=== PATIENT | female | born 1975 | race Caucasian/White ===

== ENCOUNTER 2017-12-20 11:00 | Outpatient (RCR) | payer MEDICAID, SELFPAY ==
[2017-12-13 11:51] VITALS: BP 146/88; PULSE 86; RESP 18; TEMP 36.9; BMI 54.0
--- NOTE | 2017-12-13 13:05 | PCM.WC.HP ---
(1) Wound of right lower extremity Status: Resolved Current Visit: Yes Code(s): S81.801A - Unspecified open wound, right lower leg, initial encounter (2) Cellulitis of right lower extremity Status: Acute Current Visit: Yes Code(s): L03.115 - Cellulitis of right lower limb (3) Peripheral arterial disease Status: Acute Current Visit: Yes Code(s): I73.9 - Peripheral vascular disease, unspecified History of Present Illness Date of Service: 12/13/17 Chief Complaint: Traumatic wound, right lower extremity. History of Wound: Ms. Carter is a 42yo who presented to the wound center to four-week history of nonhealing right lower extremity wound. Initially noted after a fall. She had tried to manage it at home with antibiotic ointment and some other OTC wound care product without any significant improvement. She was also seen about a week ago at the [place] emergency room and started on levofloxacin for presumed cellulitis. She still however reports significant lower extremity pain. She feels well otherwise and denies chills,, nausea, vomiting or any change in her bowel habit. 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 She is also undergone several surgeries for anal fistula. Allergies/Adverse Reactions: Allergies amoxicillin Allergy (Verified 12/13/17 12:06) Other cephalexin Allergy (Verified 12/13/17 12:06) Other naproxen Allergy (Verified 12/13/17 12:06) Other sulfamethoxazole [From Bactrim] Allergy (Verified 12/13/17 12:06) Other trimethoprim [From Bactrim] Allergy (Verified 12/13/17 12:06) Other Home Medications: Ambulatory Orders Medication Instructions Recorded Furosemide 20 mg PO DAILY 02/16/16 Calcium Carbonate/Vitamin D3 1 each PO DAILY 12/13/17 [Calcium 600-Vit D3 500 Softgel] Ferrous Sulfate 325 mg PO DAILY 12/13/17 Levofloxacin [Levaquin] 750 mg PO DAILY 12/13/17 Loperamide [Imodium] 2 mg PO Q6H PRN PRN 12/13/17 Magnesium 250 mg PO DAILY 12/13/17 Melatonin 3 mg PO DAILY 12/13/17 Sertraline HCl [Zoloft] 25 mg PO DAILY 12/13/17 Vit C/Rut/Hesp Cmp/Bioflav,Cit 1 each PO DAILY 12/13/17 [Special C 500 mg Tablet] Warfarin [Coumadin ([facility])] 5 mg PO DAILY 12/13/17 Zinc Sulfate (50mg elemental) 220 mg PO DAILY 12/13/17 [Zinc Sulfate] - Family History Maternal No pertinent history Paternal No pertinent history Smoking Status: Never smoker Review of Systems Constitutional: Denies: Anorexia, Chills, Fever Eyes: Denies: Blurred vision, Pain, Redness HEENT: Denies: Difficulty Swallowing, Head Aches Cardiovascular: Denies: Chest Pain, Chest Pressure Respiratory: Denies: Hemoptysis Gastrointestinal: Denies: Abdominal Pain, Hematemesis, Vomiting Skin: Denies: Jaundice - Physical Exam Vital Signs Temp Pulse Resp BP 98.4 F 86 18 146/88 H 12/13/17 11:51 12/13/17 11:51 12/13/17 11:51 12/13/17 11:51 General: Alert, Oriented x3, Cooperative, No apparent distress HEENT: Atraumatic Oral: Moist Mucosa Neck: Supple Lungs: Normal air movement Cardiovascular: Regular rate Abdomen: Non Tender, Obese Extremities: No cyanosis, Edema Skin: Ulcer/ Wound Wound Measurements and Assessment WC - Nurse 1 - General Ulcer Measurement Start: 12/13/17 11:51 Freq: Status: Active Protocol: Activity Type Activity Date Activity User E-Sign Co-Sign Detail Recorded Client Recorded Date Recorded By Document 12/13/17 11:51 MW [id number] 12/13/17 11:59 MW 12/13/17 11:51 Wound Center Nurse 1 [Ulcer Assessment] #3 Right Lateral LE -Combined with other wound No -Current Size (cm) - Length 1.0 -Current Size (cm) - Width 0.7 -Current Size (cm) - Depth 0.1 -Total Square Cm 0.70 -Date of Last Picture (Recall this 12/13/17 field) -Photo Taken Yes -Epithelialization None Present -Tunneling No -Undermining/Tunneling No -Circular Undermining No -Exudate Amt Small (1-33%) -Exudate Type Serosanguineous -Wound Margin Distinct, Outline Attached -Granulation Amt Small (1-33%) -Granulation Quality [place] -Slough/Fibrin Yes -Necrosis Amt Medium (34-66%) -Necrotic Tissue Type Adherent Slough -Structure Exposed N/A -Texture (Meg-wound Skin Appearance) Assessed Localized Edema -Moisture (Meg-wound Skin Appearance Assessed ) Weeping -Color (Meg-wound Skin Appearance) Assessed Hemosiderin Staining Rubor -Temperature (Meg-wound Skin No Abnormality Appearance) (Pt Warm) -Tenderness on Palpation (Meg-wound Yes Skin Appearance) -Ulcer Cleansing Rinsed/ Irrigated with Saline -Foul Odor after Cleansing No -Anesthetic Used 4% Lidocaine Solution [Edema Assessment] -Lower Limb Edema Present Yes -Right Calf (cm) 58.0 -Right Ankle (cm) 33.5 -Left Calf (cm) 47.5 -Left Ankle (cm) 29.0 WC - Nurse 2 - General Ulcer CM Notes Start: 12/13/17 11:51 Freq: Status: Active Protocol: Activity Type Activity Date Activity User E-Sign Co-Sign Detail Recorded Client Recorded Date Recorded By Document 12/13/17 12:02 MW [id number] 12/13/17 12:16 MW 12/13/17 12:02 Wound Center Nurse 2 [Procedure/Treatment] #3 Right Lateral LE -Time 12:02 -Correct Patient Yes -Correct Side, Site, Position Yes -Correct Procedure Yes -Procedure Performed Yes -Type of Procedure Debridement -Clinical Debridement Subcutaneous -Post Debridement Size (cm) - Length 3.5 -Post Debridement Size (cm) - Width 2.5 -Post Debridement Size (cm) - Depth 0.2 -Total Square Cm 8.75 -Wound/Ulcer Outcome Not Healed -Ulcer Cleansing Rinsed/ Irrigated with Saline -Foul Odor after Cleansing No -Bioengineered Tissue No -Bleeding Controlled with Pressure -Treatment Response Procedure Tolerated Well [See Physician Procedure note for Specifics] Pain Scale: 0-10 Numeric [Pain] -Is Patient Pain Free? Yes Musculoskeletal: No Muscle Wasting Neurological: Cranial nerves II-XII grossly intact Psych/Mental Status: Normal Affect Debridement Note Post-Debridement Measurements/Treatment WC - Nurse 2 - General Ulcer CM Notes Start: 12/13/17 11:51 Freq: Status: Active Protocol: Activity Type Activity Date Activity User E-Sign Co-Sign Detail Recorded Client Recorded Date Recorded By Document 12/13/17 12:02 MW [id number] 12/13/17 12:16 MW 12/13/17 12:02 Wound Center Nurse 2 #3 Right Lateral LE -Time 12:02 -Correct Patient Yes -Correct Side, Site, Position Yes -Correct Procedure Yes -Procedure Performed Yes -Type of Procedure Debridement -Clinical Debridement Subcutaneous -Post Debridement Size (cm) - Length 3.5 -Post Debridement Size (cm) - Width 2.5 -Post Debridement Size (cm) - Depth 0.2 -Total Square Cm 8.75 -Wound/Ulcer Outcome Not Healed -Ulcer Cleansing Rinsed/ Irrigated with Saline -Foul Odor after Cleansing No -Bioengineered Tissue No -Bleeding Controlled with Pressure -Treatment Response Procedure Tolerated Well Pain Scale: 0-10 Numeric Is Patient Pain Free? Yes Wound debrided: Right lower extremity ( lateral ) Wound Grade/Stage: Stage II Type of Debridement: Excisional debridement Anesthesia Used: 4% Lidocaine Solution Depth: Down to and including healthy tissue, in the subcutaneous layer Percentage of wound debrided: 100 Instrument Used: 5mm curette Tissue Removed: Slough and devitalized tissue Severity: Fat Layer Exposed Amount of bleeding with debridement: Mild Bleeding Controlled with: Pressure Patient tolerated procedure well Assessment/Plan Active Problems Cellulitis of right lower extremity (Acute) Peripheral arterial disease (Acute) Assessment: Right lower extremity wound status post trauma. Nonhealing. Right lower extremity cellulitis. Bilateral chronic lower extremity edema. Right worse than left. Plan: Debridement done as documented above. Procedure was well-tolerated. My concern is for right lower extremity cellulitis however, she has been on levofloxacin for about a week. There is still significant tenderness and erythema. Cultures taken. Will switch antibiotics based on culture. Apply Inez to the wound with Adaptic over top. Change daily. SurePress bilaterally for edema management. Advised to elevate lower extremity when seated and in bed. Increased protein intake/supplements also recommended. Follow-up here in 1 week. She was advised to call with any questions or concerns. This note was generated with [employer] dictation software. It may contain incorrect words, spelling, and punctuation that were not noted in checking the note before signing.
--- NOTE | 2017-12-13 13:23 | HP.PCM_ITS ---
(1) Wound of right lower extremity Status: Resolved Current Visit: Yes Code(s): S81.801A - Unspecified open wound, right lower leg, initial encounter (2) Cellulitis of right lower extremity Status: Acute Current Visit: Yes Code(s): L03.115 - Cellulitis of right lower limb (3) Peripheral arterial disease Status: Acute Current Visit: Yes Code(s): I73.9 - Peripheral vascular disease, unspecified History of Present Illness Date of Service: 12/13/17 Chief Complaint: Traumatic wound, right lower extremity. History of Wound: Ms. Carter is a 42yo who presented to the wound center to four -week history of nonhealing right lower extremity wound. Initially noted after a fall. She had tried to manage it at home with antibiotic ointment and some other OTC wound care product without any significant improvement. She was also seen about a week ago at the [place] emergency room and started on levofloxacin for presumed cellulitis. She still however reports significant lower extremity pain. She feels well otherwise and denies chills,, nausea, vomiting or any change in her bowel habit. 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 She is also undergone several surgeries for anal fistula. Allergies/Adverse Reactions: Allergies amoxicillin Allergy (Verified 12/13/17 12:06) Other cephalexin Allergy (Verified 12/13/17 12:06) Other naproxen Allergy (Verified 12/13/17 12:06) Other sulfamethoxazole [From Bactrim] Allergy (Verified 12/13/17 12:06) Other trimethoprim [From Bactrim] Allergy (Verified 12/13/17 12:06) Other Home Medications: Ambulatory Orders Medication Instructions Recorded Furosemide 20 mg PO DAILY 02/16/16 Calcium Carbonate/Vitamin D3 1 each PO DAILY 12/13/17 [Calcium 600-Vit D3 500 Softgel] Ferrous Sulfate 325 mg PO DAILY 12/13/17 Levofloxacin [Levaquin] 750 mg PO DAILY 12/13/17 Loperamide [Imodium] 2 mg PO Q6H PRN PRN 12/13/17 Magnesium 250 mg PO DAILY 12/13/17 Melatonin 3 mg PO DAILY 12/13/17 Sertraline HCl [Zoloft] 25 mg PO DAILY 12/13/17 Vit C/Rut/Hesp Cmp/Bioflav,Cit 1 each PO DAILY 12/13/17 [Special C 500 mg Tablet] Warfarin [Coumadin ([facility])] 5 mg PO DAILY 12/13/17 Zinc Sulfate (50mg elemental) 220 mg PO DAILY 12/13/17 [Zinc Sulfate] - Family History Maternal No pertinent history Paternal No pertinent history Smoking Status: Never smoker Review of Systems Constitutional: Denies: Anorexia, Chills, Fever Eyes: Denies: Blurred vision, Pain, Redness HEENT: Denies: Difficulty Swallowing, Head Aches Cardiovascular: Denies: Chest Pain, Chest Pressure Respiratory: Denies: Hemoptysis Gastrointestinal: Denies: Abdominal Pain, Hematemesis, Vomiting Skin: Denies: Jaundice - Physical Exam Vital Signs Temp Pulse Resp BP 98.4 F 86 18 146/88 H 12/13/17 11:51 12/13/17 11:51 12/13/17 11:51 12/13/17 11:51 General: Alert, Oriented x3, Cooperative, No apparent distress HEENT: Atraumatic Oral: Moist Mucosa Neck: Supple Lungs: Normal air movement Cardiovascular: Regular rate Abdomen: Non Tender, Obese Extremities: No cyanosis, Edema Skin: Ulcer/ Wound Wound Measurements and Assessment WC - Nurse 1 - General Ulcer Measurement Start: 12/13/17 11:51 Freq: Status: Active Protocol: Activity Type Activity Date Activity User E-Sign Co-Sign Detail Recorded Client Recorded Date Recorded By Document 12/13/17 11:51 MW [id number] 12/13/17 11:59 MW 12/13/17 11:51 Wound Center Nurse 1 [Ulcer Assessment] #3 Right Lateral LE -Combined with other wound No -Current Size (cm) - Length 1.0 -Current Size (cm) - Width 0.7 -Current Size (cm) - Depth 0.1 -Total Square Cm 0.70 -Date of Last Picture (Recall this 12/13/17 field) -Photo Taken Yes -Epithelialization None Present -Tunneling No -Undermining/Tunneling No -Circular Undermining No -Exudate Amt Small (1-33%) -Exudate Type Serosanguineous -Wound Margin Distinct, Outline Attached -Granulation Amt Small (1-33%) -Granulation Quality [place] -Slough/Fibrin Yes -Necrosis Amt Medium (34-66%) -Necrotic Tissue Type Adherent Slough -Structure Exposed N/A -Texture (Meg-wound Skin Appearance) Assessed Localized Edema -Moisture (Meg-wound Skin Appearance Assessed ) Weeping -Color (Meg-wound Skin Appearance) Assessed Hemosiderin Staining Rubor -Temperature (Meg-wound Skin No Abnormality Appearance) (Pt Warm) -Tenderness on Palpation (Meg-wound Yes Skin Appearance) -Ulcer Cleansing Rinsed/ Irrigated with Saline -Foul Odor after Cleansing No -Anesthetic Used 4% Lidocaine Solution [Edema Assessment] -Lower Limb Edema Present Yes -Right Calf (cm) 58.0 -Right Ankle (cm) 33.5 -Left Calf (cm) 47.5 -Left Ankle (cm) 29.0 WC - Nurse 2 - General Ulcer CM Notes Start: 12/13/17 11:51 Freq: Status: Active Protocol: Activity Type Activity Date Activity User E-Sign Co-Sign Detail Recorded Client Recorded Date Recorded By Document 12/13/17 12:02 MW [id number] 12/13/17 12:16 MW 12/13/17 12:02 Wound Center Nurse 2 [Procedure/Treatment] #3 Right Lateral LE -Time 12:02 -Correct Patient Yes -Correct Side, Site, Position Yes -Correct Procedure Yes -Procedure Performed Yes -Type of Procedure Debridement -Clinical Debridement Subcutaneous -Post Debridement Size (cm) - Length 3.5 -Post Debridement Size (cm) - Width 2.5 -Post Debridement Size (cm) - Depth 0.2 -Total Square Cm 8.75 -Wound/Ulcer Outcome Not Healed -Ulcer Cleansing Rinsed/ Irrigated with Saline -Foul Odor after Cleansing No -Bioengineered Tissue No -Bleeding Controlled with Pressure -Treatment Response Procedure Tolerated Well [See Physician Procedure note for Specifics] Pain Scale: 0-10 Numeric [Pain] -Is Patient Pain Free? Yes Musculoskeletal: No Muscle Wasting Neurological: Cranial nerves II-XII grossly intact Psych/Mental Status: Normal Affect Debridement Note Post-Debridement Measurements/Treatment WC - Nurse 2 - General Ulcer CM Notes Start: 12/13/17 11:51 Freq: Status: Active Protocol: Activity Type Activity Date Activity User E-Sign Co-Sign Detail Recorded Client Recorded Date Recorded By Document 12/13/17 12:02 MW [id number] 12/13/17 12:16 MW 12/13/17 12:02 Wound Center Nurse 2 #3 Right Lateral LE -Time 12:02 -Correct Patient Yes -Correct Side, Site, Position Yes -Correct Procedure Yes -Procedure Performed Yes -Type of Procedure Debridement -Clinical Debridement Subcutaneous -Post Debridement Size (cm) - Length 3.5 -Post Debridement Size (cm) - Width 2.5 -Post Debridement Size (cm) - Depth 0.2 -Total Square Cm 8.75 -Wound/Ulcer Outcome Not Healed -Ulcer Cleansing Rinsed/ Irrigated with Saline -Foul Odor after Cleansing No -Bioengineered Tissue No -Bleeding Controlled with Pressure -Treatment Response Procedure Tolerated Well Pain Scale: 0-10 Numeric Is Patient Pain Free? Yes Wound debrided: Right lower extremity ( lateral ) Wound Grade/Stage: Stage II Type of Debridement: Excisional debridement Anesthesia Used: 4% Lidocaine Solution Depth: Down to and including healthy tissue, in the subcutaneous layer Percentage of wound debrided: 100 Instrument Used: 5mm curette Tissue Removed: Slough and devitalized tissue Severity: Fat Layer Exposed Amount of bleeding with debridement: Mild Bleeding Controlled with: Pressure Patient tolerated procedure well Assessment/Plan Active Problems Cellulitis of right lower extremity (Acute) Peripheral arterial disease (Acute) Assessment: Right lower extremity wound status post trauma. Nonhealing. Right lower extremity cellulitis. Bilateral chronic lower extremity edema. Right worse than left. Plan: Debridement done as documented above. Procedure was well-tolerated. My concern is for right lower extremity cellulitis however, she has been on levofloxacin for about a week. There is still significant tenderness and erythema. Cultures taken. Will switch antibiotics based on culture. Apply Inez to the wound with Adaptic over top. Change daily. SurePress bilaterally for edema management. Advised to elevate lower extremity when seated and in bed. Increased protein intake/supplements also recommended. Follow-up here in 1 week. She was advised to call with any questions or concerns. This note was generated with [employer] dictation software. It may contain incorrect words, spelling, and punctuation that were not noted in checking the note before signing.
[2017-12-20 11:08] VITALS: BP 136/77; PULSE 88; RESP 20; TEMP 36.6; BMI 54.0
--- NOTE | 2017-12-20 11:32 | PCM.WC.PN ---
(1) Wound of right lower extremity Status: Resolved Current Visit: Yes Code(s): S81.801A - Unspecified open wound, right lower leg, initial encounter (2) Cellulitis of right lower extremity Status: Acute Current Visit: Yes Code(s): L03.115 - Cellulitis of right lower limb (3) Peripheral arterial disease Status: Acute Current Visit: Yes Code(s): I73.9 - Peripheral vascular disease, unspecified Type of Wound Date of Service: 12/20/17 Chief Complaint: Traumatic wound, right lower extremity. History of Wound: Ms. Carter is a 42yo who presented to the wound center to four-week history of nonhealing right lower extremity wound. Initially noted after a fall. She had tried to manage it at home with antibiotic ointment and some other OTC wound care product without any significant improvement. She was also seen about a week ago at the [place] emergency room and started on levofloxacin for presumed cellulitis. She still however reports significant lower extremity pain. She feels well otherwise and denies chills,, nausea, vomiting or any change in her bowel habit. Progress of Wound: Stable wound however, still significant pain. - Physical Exam Vital Signs Temp Pulse Resp BP 98 F 88 20 H 136/77 H 12/20/17 11:08 12/20/17 11:08 12/20/17 11:08 12/20/17 11:08 General: Alert, Oriented x3, Cooperative, No apparent distress HEENT: Atraumatic Oral: Moist Mucosa Neck: Supple Lungs: Normal air movement Abdomen: Non Tender, Obese Extremities: Edema Skin: Ulcer/ Wound Wound Measurements and Assessment WC - Nurse 1 - General Ulcer Measurement Start: 12/13/17 11:51 Freq: Status: Active Protocol: Activity Type Activity Date Activity User E-Sign Co-Sign Detail Recorded Client Recorded Date Recorded By Document 12/20/17 11:08 DL [id number] 12/20/17 11:15 DL 12/20/17 11:08 Wound Center Nurse 1 [Ulcer Assessment] #3 Right Lateral LE -Current Size (cm) - Length 1 -Current Size (cm) - Width 0.6 -Current Size (cm) - Depth 0.1 -Total Square Cm 0.6 -Photo Taken No -Exudate Amt None Present (0 %) -Wound Margin Distinct, Outline Attached -Granulation Amt Small (1-33%) -Granulation Quality Red -Necrosis Amt Small (1-33%) -Necrotic Tissue Type Adherent Slough -Structure Exposed N/A -Texture (Meg-wound Skin Appearance) Localized Edema Scarring -Moisture (Meg-wound Skin Appearance No Abnormality ) -Color (Meg-wound Skin Appearance) Hemosiderin Staining Rubor -Temperature (Meg-wound Skin No Abnormality Appearance) (Pt Warm) -Ulcer Cleansing Rinsed/ Irrigated with Saline -Foul Odor after Cleansing No -Anesthetic Used 4% Lidocaine Solution [Edema Assessment] -Right Calf (cm) 56 -Right Ankle (cm) 33.5 WC - Nurse 2 - General Ulcer CM Notes Start: 12/13/17 11:51 Freq: Status: Active Protocol: Activity Type Activity Date Activity User E-Sign Co-Sign Detail Recorded Client Recorded Date Recorded By Document 12/20/17 11:24 MW [id number] 12/20/17 11:28 MW 12/20/17 11:24 Wound Center Nurse 2 [Procedure/Treatment] #3 Right Lateral LE -Time 11:25 -Correct Patient Yes -Correct Side, Site, Position Yes -Correct Procedure Yes -Procedure Performed Yes -Type of Procedure Debridement -Clinical Debridement Subcutaneous -Post Debridement Size (cm) - Length 1.0 -Post Debridement Size (cm) - Width 1.0 -Post Debridement Size (cm) - Depth 0.1 -Total Square Cm 1.00 -Wound/Ulcer Outcome Not Healed -Ulcer Cleansing Not Cleansed -Foul Odor after Cleansing No -Bioengineered Tissue No -Bleeding Controlled with Pressure -Treatment Response Procedure Tolerated Well [See Physician Procedure note for Specifics] Pain Scale: 0-10 Numeric [Pain] -Is Patient Pain Free? Yes Musculoskeletal: No Muscle Wasting Neurological: Cranial nerves II-XII grossly intact Psych/Mental Status: Normal Affect Debridement Note Post-Debridement Measurements/Treatment WC - Nurse 2 - General Ulcer CM Notes Start: 12/13/17 11:51 Freq: Status: Active Protocol: Activity Type Activity Date Activity User E-Sign Co-Sign Detail Recorded Client Recorded Date Recorded By Document 12/13/17 12:02 MW [id number] 12/13/17 12:16 MW Document 12/20/17 11:24 MW [id number] 12/20/17 11:28 MW 12/13/17 12/20/17 12:02 11:24 Wound Center Nurse 2 #3 Right Lateral LE -Time 12: 11:25 -Correct Patient Yes Yes -Correct Side, Site, Position Yes Yes -Correct Procedure Yes Yes -Procedure Performed Yes Yes -Type of Procedure Debridement Debridement -Clinical Debridement Subcutaneous Subcutaneous -Post Debridement Size (cm) - Length 3.5 1.0 -Post Debridement Size (cm) - Width 2.5 1.0 -Post Debridement Size (cm) - Depth 0.2 0.1 -Total Square Cm 8.75 1.00 -Wound/Ulcer Outcome Not Healed Not Healed -Ulcer Cleansing Rinsed/ Not Cleansed Irrigated with Saline -Foul Odor after Cleansing No No -Bioengineered Tissue No No -Bleeding Controlled with Pressure Pressure -Treatment Response Procedure Procedure Tolerated Well Tolerated Well Pain Scale: 0-10 Numeric Is Patient Pain Free? Yes Yes Wound debrided: Right lower extremity Wound Grade/Stage: Stage II Type of Debridement: Excisional debridement Anesthesia Used: 4% Lidocaine Solution, 5% Lidocaine Gel Depth: Down to and including healthy tissue, in the subcutaneous layer Percentage of wound debrided: 100 Instrument Used: 3mm curette Tissue Removed: Slough and devitalized tissue Severity: Fat Layer Exposed Amount of bleeding with debridement: Mild Bleeding Controlled with: Pressure Patient tolerated procedure well Assessment/Plan Active Problems Cellulitis of right lower extremity (Acute) Peripheral arterial disease (Acute) Assessment: Right lower extremity wound status post trauma. Nonhealing. Right lower extremity cellulitis. Bilateral chronic lower extremity edema. Right worse than left. Plan: Debridement done as documented above. Procedure was well-tolerated. She has completed her prior course of antibiotics and repeat. Culture though with minmal growth showed intermediate susceptibility of prior antibiotic ( levofloxacin ). Continue Inez with adaptic overtop, Change daily. SurePress bilaterally for edema management. Advised to elevate lower extremity when seated and in bed. Increased protein intake/supplements also recommended. Will start on Clindamycin due to continued pain and and concerns for cellulitis. Advised to take probiotics also. Follow-up here in 1 week. She was advised to call with any questions or concerns. This note was generated with [employer] software. It may contain incorrect words, spelling, and punctuation that were not noted in checking the note before signing.
--- NOTE | 2017-12-20 11:39 | PN.PCM_ITS ---
(1) Wound of right lower extremity Status: Resolved Current Visit: Yes Code(s): S81.801A - Unspecified open wound, right lower leg, initial encounter (2) Cellulitis of right lower extremity Status: Acute Current Visit: Yes Code(s): L03.115 - Cellulitis of right lower limb (3) Peripheral arterial disease Status: Acute Current Visit: Yes Code(s): I73.9 - Peripheral vascular disease, unspecified Type of Wound Date of Service: 12/20/17 Chief Complaint: Traumatic wound, right lower extremity. History of Wound: Ms. Carter is a 42yo who presented to the wound center to four -week history of nonhealing right lower extremity wound. Initially noted after a fall. She had tried to manage it at home with antibiotic ointment and some other OTC wound care product without any significant improvement. She was also seen about a week ago at the [place] emergency room and started on levofloxacin for presumed cellulitis. She still however reports significant lower extremity pain. She feels well otherwise and denies chills,, nausea, vomiting or any change in her bowel habit. Progress of Wound: Stable wound however, still significant pain. - Physical Exam Vital Signs Temp Pulse Resp BP 98 F 88 20 H 136/77 H 12/20/17 11:08 12/20/17 11:08 12/20/17 11:08 12/20/17 11:08 General: Alert, Oriented x3, Cooperative, No apparent distress HEENT: Atraumatic Oral: Moist Mucosa Neck: Supple Lungs: Normal air movement Abdomen: Non Tender, Obese Extremities: Edema Skin: Ulcer/ Wound Wound Measurements and Assessment WC - Nurse 1 - General Ulcer Measurement Start: 12/13/17 11:51 Freq: Status: Active Protocol: Activity Type Activity Date Activity User E-Sign Co-Sign Detail Recorded Client Recorded Date Recorded By Document 12/20/17 11:08 DL [id number] 12/20/17 11:15 DL 12/20/17 11:08 Wound Center Nurse 1 [Ulcer Assessment] #3 Right Lateral LE -Current Size (cm) - Length 1 -Current Size (cm) - Width 0.6 -Current Size (cm) - Depth 0.1 -Total Square Cm 0.6 -Photo Taken No -Exudate Amt None Present (0 %) -Wound Margin Distinct, Outline Attached -Granulation Amt Small (1-33%) -Granulation Quality Red -Necrosis Amt Small (1-33%) -Necrotic Tissue Type Adherent Slough -Structure Exposed N/A -Texture (Meg-wound Skin Appearance) Localized Edema Scarring -Moisture (Meg-wound Skin Appearance No Abnormality ) -Color (Meg-wound Skin Appearance) Hemosiderin Staining Rubor -Temperature (Meg-wound Skin No Abnormality Appearance) (Pt Warm) -Ulcer Cleansing Rinsed/ Irrigated with Saline -Foul Odor after Cleansing No -Anesthetic Used 4% Lidocaine Solution [Edema Assessment] -Right Calf (cm) 56 -Right Ankle (cm) 33.5 WC - Nurse 2 - General Ulcer CM Notes Start: 12/13/17 11:51 Freq: Status: Active Protocol: Activity Type Activity Date Activity User E-Sign Co-Sign Detail Recorded Client Recorded Date Recorded By Document 12/20/17 11:24 MW [id number] 12/20/17 11:28 MW 12/20/17 11:24 Wound Center Nurse 2 [Procedure/Treatment] #3 Right Lateral LE -Time 11:25 -Correct Patient Yes -Correct Side, Site, Position Yes -Correct Procedure Yes -Procedure Performed Yes -Type of Procedure Debridement -Clinical Debridement Subcutaneous -Post Debridement Size (cm) - Length 1.0 -Post Debridement Size (cm) - Width 1.0 -Post Debridement Size (cm) - Depth 0.1 -Total Square Cm 1.00 -Wound/Ulcer Outcome Not Healed -Ulcer Cleansing Not Cleansed -Foul Odor after Cleansing No -Bioengineered Tissue No -Bleeding Controlled with Pressure -Treatment Response Procedure Tolerated Well [See Physician Procedure note for Specifics] Pain Scale: 0-10 Numeric [Pain] -Is Patient Pain Free? Yes Musculoskeletal: No Muscle Wasting Neurological: Cranial nerves II-XII grossly intact Psych/Mental Status: Normal Affect Debridement Note Post-Debridement Measurements/Treatment WC - Nurse 2 - General Ulcer CM Notes Start: 12/13/17 11:51 Freq: Status: Active Protocol: Activity Type Activity Date Activity User E-Sign Co-Sign Detail Recorded Client Recorded Date Recorded By Document 12/13/17 12:02 MW [id number] 12/13/17 12:16 MW Document 12/20/17 11:24 MW [id number] 12/20/17 11:28 MW 12/13/17 12/20/17 12:02 11:24 Wound Center Nurse 2 #3 Right Lateral LE -Time 12: 11:25 -Correct Patient Yes Yes -Correct Side, Site, Position Yes Yes -Correct Procedure Yes Yes -Procedure Performed Yes Yes -Type of Procedure Debridement Debridement -Clinical Debridement Subcutaneous Subcutaneous -Post Debridement Size (cm) - Length 3.5 1.0 -Post Debridement Size (cm) - Width 2.5 1.0 -Post Debridement Size (cm) - Depth 0.2 0.1 -Total Square Cm 8.75 1.00 -Wound/Ulcer Outcome Not Healed Not Healed -Ulcer Cleansing Rinsed/ Not Cleansed Irrigated with Saline -Foul Odor after Cleansing No No -Bioengineered Tissue No No -Bleeding Controlled with Pressure Pressure -Treatment Response Procedure Procedure Tolerated Well Tolerated Well Pain Scale: 0-10 Numeric Is Patient Pain Free? Yes Yes Wound debrided: Right lower extremity Wound Grade/Stage: Stage II Type of Debridement: Excisional debridement Anesthesia Used: 4% Lidocaine Solution, 5% Lidocaine Gel Depth: Down to and including healthy tissue, in the subcutaneous layer Percentage of wound debrided: 100 Instrument Used: 3mm curette Tissue Removed: Slough and devitalized tissue Severity: Fat Layer Exposed Amount of bleeding with debridement: Mild Bleeding Controlled with: Pressure Patient tolerated procedure well Assessment/Plan Active Problems Cellulitis of right lower extremity (Acute) Peripheral arterial disease (Acute) Assessment: Right lower extremity wound status post trauma. Nonhealing. Right lower extremity cellulitis. Bilateral chronic lower extremity edema. Right worse than left. Plan: Debridement done as documented above. Procedure was well-tolerated. She has completed her prior course of antibiotics and repeat. Culture though with minmal growth showed intermediate susceptibility of prior antibiotic ( levofloxacin ). Continue Inez with adaptic overtop, Change daily. SurePress bilaterally for edema management. Advised to elevate lower extremity when seated and in bed. Increased protein intake/supplements also recommended. Will start on Clindamycin due to continued pain and and concerns for cellulitis. Advised to take probiotics also. Follow-up here in 1 week. She was advised to call with any questions or concerns. This note was generated with Loginzaation software. It may contain incorrect words, spelling, and punctuation that were not noted in checking the note before signing.
== END 2017-12-21 23:59 ==
LOC: WC 11:00
PROVIDERS: Visit Provider Internal Medicine
DX: I73.9 Peripheral vascular disease, unspecified (principal); L03.115 Cellulitis of right lower limb; R60.0 Localized edema; S81.831A Puncture wound without foreign body, right lower leg, initial encounter; W19.XXXA Unspecified fall, initial encounter; E66.01 Morbid (severe) obesity due to excess calories; Z68.43 Body mass index [BMI] 50.0-59.9, adult; Z71.3 Dietary counseling and surveillance; Z86.711 Personal history of pulmonary embolism; K58.9 Irritable bowel syndrome, unspecified; M19.90 Unspecified osteoarthritis, unspecified site; Z79.899 Other long term (current) drug therapy; Z79.01 Long term (current) use of anticoagulants
CPT/HCPCS: 11042; 87070; 87075; 87077; 87186; 87205; 99213; G0463

== ENCOUNTER 2017-12-21 13:52 | Observation (INO) | payer MEDICAID, SELFPAY ==
[2017-12-21 13:54] VITALS: BP 125/83; PULSE 88; RESP 19; TEMP 37.1; O2SAT 99; BMI 53.2
--- NOTE | 2017-12-21 15:17 | ED.VISSUMM ---
- ER Visit Summary Date of Service: 12/21/17 Chief Complaint: Cellulitis History of Present Illness: The patient is a 42 F with cellulitis of her right leg. She has been following with wound care. She recently tested positive for staph to a right leg ulceration. She was started on clindamycin 2 days ago, but the redness has been expanding. She is unable to tolerate the medicine by mouth and feels ill. No fevers. She does take warfarin for history of PE. Physical Examination: Afebrile and vital signs unremarkable. Patient is in no acute distress. Right lower leg shows erythema and warmth. There is a superficial ulceration laterally. No active bleeding or pus. Neurovascular intact distally. Test Results: Labs, cultures pending Emergency Department Course and Treatment: Patient treated with vancomycin while awaiting results. She will likely need inpatient care as she is not able to take her clindamycin and her cellulitis seems to be worsening. She says this is the worst it has ever been. Workup is all fairly unremarkable. Patient was discussed with the hospitalist who will evaluate. Treatment Plan: As above Disposition: Admission Impression: 1. Cellulitis right lower extremity This note was generated with Blinpick dictation software. It may contain incorrect words, spelling, and punctuation that were not noted in review of the chart prior to signing ED Disposition - Plan for ED Patient: Chief Complaint: Cellulitis Referrals: Marcela Sargent MD [Primary Care Provider] -
[2017-12-21 16:20] LABS: Absolute Neutrophil Count 5.1 X10^3/uL (2.0-7.7); Basophil# 0.02 X10^3/uL; Basophil% 0.3 % (0-1); Eosinophil# 0.11 X10^3/uL; Eosinophils% 1.6 % (0-5); Hematocrit 37.3 % (37-47); Hemoglobin 11.9 g/dl (12.0-15.0); Lymphocyte % 19.9 % (19-41); Mean Corp Hgb Conc 31.9 g/gl (32-36); Mean Corpuscular Hgb 28.1 pg (27.0-32.0); Mean Corpuscular Volume 88.2 fL (81-99); Mean Platelet Vol. 10.7 fl (6.2-12.0); Monocyte# 0.39 X10^3/uL; Monocyte% 5.6 % (0-10); Neutrophil # 5.09 X10^3/uL (2.7-7.7); Neutrophil % 72.5 % (47-70); Platelet Count 163 K/mm3 (150-450); RBC Distribution Width CV 15.3 % (11.6-14.6); RBC Distribution Width SD 49.1 fl (35.1-43.9); Red Blood Count 4.23 M/mm3 (4.2-5.4)
[2017-12-21 16:22] LABS: POSITIVE COUNT NO; POSITIVE DIFFERENTIAL NO; POSITIVE MORPHOLOGY NO
[2017-12-21 16:42] LABS: Anion Gap 11 (5-15); BUN 18 mg/dL (7-18); BUN/Creat Ratio 19.8 RATIO (10-20); Chloride 107 mmol/L (98-107); Creatinine, Serum 0.91 mg/dL (0.55-1.02); EST Glomerular Filtration Rate 72 mL/min (>60); Est Glom Filt Rate - Afr Amer 88 mL/min (>60); Estimated Creatinine Clearance 79.12 ml/min; Glucose 79 mg/dL (74-106); Sodium Level 143 mmol/L (136-145)
[2017-12-21 16:47] LABS: International Normalized Ratio 1.9; Prothrombin Time (Protime)PT. 21.4 SECONDS (11.7-14.9)
[2017-12-21 16:48] LABS: Pregnancy, Serum, hCG Quali. NEGATIVE Negative (0-9 Nonpreg)
--- NOTE | 2017-12-21 17:51 | PCM.HP.STD ---
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 Status: Chronic (4) Varicose veins of right lower extremity with both ulcer of calf and inflammation Status: Chronic (5) Hematoma of right lower extremity Status: Resolved (6) Current use of long term care social worker anticoagulation Status: Chronic (7) Pulmonary embolism Status: Resolved (8) Venous insufficiency of both lower extremities Status: Chronic (9) Chronic pain of right lower extremity Status: Chronic (10) Pain of left lower extremity Status: Chronic (11) History of pulmonary embolism Status: Chronic (12) Post-phlebitic syndrome Status: Chronic (13) Morbid obesity Status: Chronic (14) Irritable bowel syndrome (IBS) Status: Chronic (15) Arthritis Status: Chronic (16) Status post club foot correction at Status: Chronic (17) Anal fistula Status: Chronic (18) Venous hypertension, chronic, with inflammation Status: Chronic (19) Ulcer of left ankle Status: Resolved History of Present Illness Date of Admission: 12/21/17 Chief Complaint: Right lower extremity cellulitis, general malaise. The patient is a 42 year old F who presents to the emergency room due to right lower extremity cellulitis and general malaise. Patient states she had injury to lateral right lower extremity months ago. This resulted in wound which did not heal. She states a few weeks ago she presented to [facility] and they placed her on Levaquin and told her to follow-up with primary care physician. She then followed up with wound center who completed wound cultures which showed staph. She was placed on clindamycin yesterday, 12/20/17. She states she took her first dose around 3 PM. She states she had nausea overnight with general malaise. Complains of subjective chills, denies fever. Complains of right lower extremity pain. She states she has been unable to take any of her medications so far today due to feeling unwell. 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 Past Medical History Past Medical History (Chronic Problems): Chronic Problems Peripheral arterial disease (Chronic) 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) Varicose veins of right lower extremity with both ulcer of calf and inflammation (Chronic) Current use of long term care social worker anticoagulation (Chronic) Venous insufficiency of both lower extremities (Chronic) Chronic pain of right lower extremity (Chronic) Pain of left lower extremity (Chronic) History of pulmonary embolism (Chronic) Post-phlebitic syndrome (Chronic) Morbid obesity (Chronic) Irritable bowel syndrome (IBS) (Chronic) Arthritis (Chronic) Status post club foot correction at (Chronic) Anal fistula (Chronic) Venous hypertension, chronic, with inflammation (Chronic) Allergies amoxicillin Allergy (Verified 12/21/17 13:58) Other cephalexin Allergy (Verified 12/21/17 13:58) Other naproxen Allergy (Verified 12/21/17 13:58) Other sulfamethoxazole [From Bactrim] Allergy (Verified 12/21/17 13:58) Other trimethoprim [From Bactrim] Allergy (Verified 12/21/17 13:58) Other Home Medications: Ambulatory Orders Medication Instructions Recorded Furosemide 20 mg PO DAILY 02/16/16 Calcium Carbonate/Vitamin D3 1 tab PO DAILY 12/13/17 [Calcium 600-Vit D3 500 Softgel] Ferrous Sulfate 325 mg PO DAILY 12/13/17 Loperamide [Imodium] 4 - 6 mg PO Q6H PRN PRN 12/13/17 Melatonin 3 mg PO DAILY 12/13/17 Sertraline HCl [Zoloft] 25 mg PO DAILY 12/13/17 Warfarin [Coumadin ([facility])] 5 mg PO SUMOWETHFR 12/13/17 Zinc Sulfate (50mg elemental) 220 mg PO DAILY 12/13/17 [Zinc Sulfate] Acetaminophen [Tylenol Extra 1,000 mg PO Q6H PRN PRN 12/21/17 Strength] Ascorbic Acid [Vitamin C] 2,000 mg PO BID 12/21/17 Ergocalciferol [Vitamin D] 50,000 unit PO Q7D 12/21/17 Loperamide HCl [Imodium A-D] 2 mg PO PRN PRN 12/21/17 Magnesium Oxide [Magnesium] 400 mg PO DAILY 12/21/17 Warfarin Sodium 4.5 mg PO TUSA 12/21/17 Surgical History: - - The patient has undergone 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 She is also undergone several surgeries for anal fistula. 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 Denies: Fever HEENT: Denies: Head Aches, Sinus Congestion, Sinus Drainage Cardiovascular: Reports: Edema - Bilateral lower extremities, chronic. Denies: Chest Pain, Palpitations Respiratory: Denies: Cough, Shortness of breath at rest, Sputum production Gastrointestinal: Reports: Diarrhea - Chronic, Nausea. Denies: Abdominal Pain, Vomiting Genitourinary: Denies: Dysuria Musculoskeletal: Reports: - - Right lower extremity pain. Denies: Joint Pain, Joint Tenderness Skin: Reports: Wounds - Right lower extremity Neurological: Denies: Numbness, Tingling, Focal weakness Psychiatric: Reports: Depression Hematologic/ Lymphatic: Denies: Easy Bruising, Easy Bleeding VTE Information - Inpt Only VTE Present on Admission: No VTE Mechan Device Prophylaxis: None VTE Pharm Prophylaxis ordered?: Yes Patient Problems: Active and Suspected Problems Cellulitis of right lower extremity (Acute) - Physical Exam General: Alert, Oriented x3, Cooperative, No apparent distress HEENT: Atraumatic, PERRLA, EOMI, Normocephalic Neck: Supple, No JVD, Negative Carotid Bruits Lungs: Clear to auscultation, Normal air movement Cardiovascular: Regular rate, Regular Rhythm, Normal S1, Normal S2, No murmurs Abdomen: Bowel Sounds Present, Soft, Non Tender, Non-Distended, Obese Extremities: - - Chronic lymphedema bilateral lower extremities, right slightly larger than left. Skin: - - Chronic skin changes bilateral lower extremities. Right lower extremity with greater area of hyperpigmentation. Lateral right lower extremity with superficial wound, minimal serosanguineous drainage. Musculoskeletal: No Tenderness to Palpation of Joints or Extremities Neurological: Cranial nerves II-XII grossly intact, Neuro grossly intact Psych/Mental Status: Normal Affect, Appropriate Vital Signs Temp Pulse Resp BP Pulse Ox 98.8 F 88 19 H 125/83 H 99 12/21/17 13:54 12/21/17 13:54 12/21/17 13:54 12/21/17 13:54 12/21/17 13:54 Weight: 340 lb Body Mass Index (BMI) 53.2 Laboratory Tests Past 24 Hrs 12/21/17 12/21/17 12/21/17 15:55 15:55 15:55 WBC 7.0 RBC 4.23 Hgb 11.9 L Hct 37.3 MCV 88.2 MCH 28.1 MCHC 31.9 L RDW 15.3 H RDW Differential 49.1 H Plt Count 163 MPV 10.7 Immature Gran % (Auto) 0.100 Neut % (Auto) 72.5 H Lymph % (Auto) 19.9 [place] % (Auto) 5.6 Eos % (Auto) 1.6 Baso % (Auto) 0.3 Absolute Neuts (auto) 5.1 Absolute Lymphs (auto) 1.40 Total Counted Not Reportable PT 21.4 H INR 1.9 Sodium 143 Potassium 4.0 Chloride 107 Carbon Dioxide 25.0 Anion Gap 11 BUN 18 Creatinine 0.91 Estim Creat Clear Calc 79.12 Est GFR (MDRD) Af Amer 88 Est GFR (MDRD) Non-Af 72 BUN/Creatinine Ratio 19.8 Glucose 79 Calcium 9.0 Serum , Qual 12/21/17 15:55 WBC RBC Hgb Hct MCV MCH MCHC RDW RDW Differential Plt Count MPV Immature Gran % (Auto) Neut % (Auto) Lymph % (Auto) [place] % (Auto) Eos % (Auto) Baso % (Auto) Absolute Neuts (auto) Absolute Lymphs (auto) Total Counted PT INR Sodium Potassium Chloride Carbon Dioxide Anion Gap BUN Creatinine Estim Creat Clear Calc Est GFR (MDRD) Af Amer Est GFR (MDRD) Non-Af BUN/Creatinine Ratio Glucose Calcium Serum , Qual NEGATIVE Assessment/Plan All Active Problems Cellulitis of right lower extremity (Acute) Hematoma of right lower extremity (Resolved) Pulmonary embolism (Resolved) Ulcer of left ankle (Resolved) 1. Right lower extremity cellulitis, wound-recent wound culture 12/13/17 + for Staphylococcus hemolyticus and Staphylococcus epidermidis. Sensitive to clindamycin which patient was placed on orally yesterday. Continue oral clindamycin regimen. Zofran as needed for nausea. IV fluids. Apply Inez to lateral right lower extremity wound with Adaptic. SurePress bilaterally. Elevate right lower extremity. Blood cultures drawn in ER. Patient is afebrile. No white count. Recommend continued outpatient follow-up with wound center. 2. 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 INR on admission 1.9. Trend INR. 3. Venous insufficiency/peripheral arterial disease 4. Morbid obesity-encourage diet and lifestyle modifications. Nutrition consult. 5. Depression-continue home sertraline regimen. 6. IBS-continue home Imodium as needed regimen. DVT prophylaxis-Coumadin. This patient was seen by [facility] under the supervision of Dr. Martinez. <Hector Martinez F - Last Filed: 12/21/17 20:11> History of Present Illness The patient is a 42 year old F [] Past Medical History Allergies amoxicillin Allergy (Verified 12/21/17 13:58) Other cephalexin Allergy (Verified 12/21/17 13:58) Other naproxen Allergy (Verified 12/21/17 13:58) Other sulfamethoxazole [From Bactrim] Allergy (Verified 12/21/17 13:58) Other trimethoprim [From Bactrim] Allergy (Verified 12/21/17 13:58) Other - Physical Exam Vital Signs Temp Pulse Resp BP Pulse Ox 98.8 F 85 18 137/75 H 97 12/21/17 13:54 12/21/17 18:16 12/21/17 18:16 12/21/17 18:16 12/21/17 18:16 Weight: 352 lb Body Mass Index (BMI) 55.1 Assessment/Plan Addendum: Dr. Martinez I personally examined the patient and reviewed the chart. I agree with the above. 42-year-old female with a wound on her right lateral leg. She has had this managed at the wound care clinic which cultures grew S. epidermidis and S. haemolyticus both sensitive to clindamycin on 12/13. She was started on Clindamycin yesterday at 3 pm and she took 2 doses yesterday. She did not take her am dose because she was nauseated and did not eat. She is not septic. General: Alert, Oriented x3, Cooperative, No apparent distress HEENT: Atraumatic, EOMI, Normocephalic Oral: Moist Mucosa Neck: Supple, No JVD Lungs: Clear to auscultation, Normal air movement, No rhonchi, No wheeze, No rales Cardiovascular: Regular rate, Regular Rhythm, Normal S1, Normal S2, No murmurs Abdomen: Soft, Non Tender, Non-Distended, No Hepato-splenomegaly Extremities: 2+ edema with chronic venous stasis, Capillary Refill Less than 3 Seconds Skin: 1 cm clean wound on her right lateral senior, mild cellulitis. Psych/Mental Status: Normal Affect, Appropriate 1. Cellulitis - Culture grew clindamycin sensitive staph - C/w clindamycin - No IVF as she is not septic, afebrile without a leukocytosis - VSS 2. The rest as above Code Visit OBSV E&M: [id number] Initial observation care L3
[2017-12-21 18:16] VITALS: BP 137/75; PULSE 85; RESP 18; O2SAT 97
[2017-12-21 18:31] VITALS: BMI 55.1
[2017-12-21 21:30] VITALS: BP 117/65; PULSE 89; RESP 16; TEMP 36.9; O2SAT 97
[2017-12-21] MEDS: Heparin Injection (Vial) 5,000 UNIT/ML VIAL 5000 UNIT SC (21:48)
[2017-12-21] MEDS: Clindamycin HCl 150 MG Capsule 450 MG PO (21:48)
[2017-12-21] MEDS: Acetaminophen 500 MG Tablet 1000 MG PO (21:50)
[2017-12-21] MEDS: MELATONIN 3 MG TABLET PO (21:51)
[2017-12-21] MEDS: Ascorbic Acid 500 MG Tablet 2000 MG PO (21:51)
--- NOTE | 2017-12-21 23:13 | NURSING ---
Patient had a pizza delivered to her at this time time.
[2017-12-21 23:26] VITALS: O2SAT 97
[2017-12-22 02:30] VITALS: BP 123/71; PULSE 82; RESP 16; RESP 18; TEMP 36.9; O2SAT 97
[2017-12-22] MEDS: Clindamycin HCl 150 MG Capsule 450 MG PO ×2 (05:45→13:30)
[2017-12-22 07:15] VITALS: O2SAT 97
[2017-12-22 07:15] LABS: Absolute Lymphocyte Count 1.19 X10^3/ul (0.83-4.51); Absolute Neutrophil Count 3.2 X10^3/uL (2.0-7.7); Basophil# 0.01 X10^3/uL; Basophil% 0.2 % (0-1); Eosinophil# 0.12 X10^3/uL; Eosinophils% 2.4 % (0-5); Hematocrit 34.1 % (37-47); Hemoglobin 10.8 g/dl (12.0-15.0); Lymphocyte # 1.19 X10^3/ul (4.0); Lymphocyte % 23.9 % (19-41); Mean Corp Hgb Conc 31.7 g/gl (32-36); Mean Corpuscular Hgb 28.2 pg (27.0-32.0); Mean Platelet Vol. 10.9 fl (6.2-12.0); Monocyte# 0.47 X10^3/uL; Monocyte% 9.4 % (0-10); Neutrophil # 3.16 X10^3/uL (2.7-7.7); Neutrophil % 63.5 % (47-70); Platelet Count 138 K/mm3 (150-450); RBC Distribution Width CV 15.4 % (11.6-14.6); RBC Distribution Width SD 49.4 fl (35.1-43.9); Red Blood Count 3.83 M/mm3 (4.2-5.4)
[2017-12-22 07:17] LABS: POSITIVE COUNT NO; POSITIVE DIFFERENTIAL NO; POSITIVE MORPHOLOGY NO
[2017-12-22 07:23] LABS: International Normalized Ratio 1.9; Prothrombin Time (Protime)PT. 21.5 SECONDS (11.7-14.9)
[2017-12-22 07:33] LABS: Anion Gap 11 (5-15); BUN 21 mg/dL (7-18); BUN/Creat Ratio 26.6 RATIO (10-20); Calcium,Total 8.2 mg/dL (8.5-10.1); Chloride 112 mmol/L (98-107); Creatinine, Serum 0.79 mg/dL (0.55-1.02); EST Glomerular Filtration Rate 85 mL/min (>60); Est Glom Filt Rate - Afr Amer 103 mL/min (>60); Estimated Creatinine Clearance 91.13 ml/min; Glucose 115 mg/dL (74-106); Potassium 3.9 mmol/L (3.5-5.1); Sodium Level 144 mmol/L (136-145)
[2017-12-22] MEDS: Calcium Carb/Vitamin D 1 TABLET Tablet PO (09:28)
[2017-12-22] MEDS: Heparin Injection (Vial) 5,000 UNIT/ML VIAL 5000 UNIT SC (09:28)
[2017-12-22] MEDS: Ferrous Sulfate 325 MG Tablet PO (09:28)
[2017-12-22] MEDS: Magnesium Oxide 400 MG Tablet PO (09:29)
[2017-12-22] MEDS: Ascorbic Acid 500 MG Tablet 2000 MG PO (09:30)
[2017-12-22] MEDS: Sertraline 50 MG Tablet 25 MG PO (09:31)
[2017-12-22 09:44] VITALS: BP 140/83; PULSE 83; RESP 18; TEMP 36.6; O2SAT 97
[2017-12-22] MEDS: Acetaminophen 500 MG Tablet 1000 MG PO (09:48)
--- NOTE | 2017-12-22 11:32 | PCM.DC ---
You will use the following diet at home:: Calorie/Carbohydrate Controlled (specify 1200, 1400, etc) Discharge Activity: Return to Normal Activity Call your doctor if you observe: Fever of 101 or Higher, Shortness of breath, Dizziness, Fainting spells, Chest pain, Calf discomfort Allergies/Adverse Reactions: Allergies amoxicillin Allergy (Verified 12/21/17 13:58) Other cephalexin Allergy (Verified 12/21/17 13:58) Other naproxen Allergy (Verified 12/21/17 13:58) Other sulfamethoxazole [From Bactrim] Allergy (Verified 12/21/17 13:58) Other trimethoprim [From Bactrim] Allergy (Verified 12/21/17 13:58) Other Medications to take at Discharge Furosemide 20 mg PO DAILY 02/16/16 Calcium Carbonate/Vitamin D3 [Calcium 600-Vit D3 500 Softgel] 1 tab PO BID 12/13/17 Ferrous Sulfate 325 mg PO DAILY 12/13/17 Loperamide [Imodium] 4 - 6 mg PO Q6H PRN PRN 12/13/17 Melatonin 3 mg PO DAILY 12/13/17 Sertraline HCl [Zoloft] 25 mg PO DAILY 12/13/17 Warfarin [Coumadin] 5 mg PO SUMOWETHFR 12/13/17 Zinc Sulfate (50mg elemental) [Zinc Sulfate] 220 mg PO QHS 12/13/17 Acetaminophen [Tylenol] 1,000 mg PO Q6H PRN PRN 12/21/17 Ascorbic Acid [Vitamin C] 2,000 mg PO BID 12/21/17 Ergocalciferol [Vitamin D] 50,000 unit PO Q7D 12/21/17 Loperamide HCl [Imodium A-D] 2 mg PO PRN PRN 12/21/17 Magnesium Oxide [Magnesium] 400 mg PO BID 12/21/17 Warfarin Sodium 4.5 mg PO TUSA 12/21/17 Clindamycin [Cleocin] 450 mg PO TID #63 cap 12/22/17 Ondansetron HCl [Zofran] 4 mg PO Q6H #20 tab 12/22/17 The following prescriptions were given: Ondansetron HCl [Zofran] 4 mg PO Q6H #20 tab Clindamycin [Cleocin] 450 mg PO TID #63 cap Primary Care Physician: Marcela Sargent MD [Primary Care Provider] - Please follow up with your Primary Care Physician in: 1 Week Test Results: Test results from this visit will be discussed in further detail at your follow-up appointment, if applicable. Please Follow Up With: Wound Center When: Call for appointment next week Proposed Discharge Date: 12/22/17
--- NOTE | 2017-12-22 11:34 | PCM.DC.SUM ---
<Ruth Christianson - Last Filed: 12/22/17 11:40> Discharge Date and Diagnosis Date of Admission: 12/21/17 Date of Discharge: 12/22/17 - Primary Discharge Diagnosis 1. 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 (Chronic) Venous insufficiency of both lower extremities (Chronic) Chronic pain of right lower extremity (Chronic) Pain of left lower extremity (Chronic) History of pulmonary embolism (Chronic) Post-phlebitic syndrome (Chronic) Morbid obesity (Chronic) Irritable bowel syndrome (IBS) (Chronic) Arthritis (Chronic) 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 1. Right lower extremity cellulitis, wound-recent wound culture 12/13/17 + for Staphylococcus hemolyticus and Staphylococcus epidermidis. Sensitive to clindamycin which patient was placed on orally 12/20/17. She took only 1 dose prior to presenting to emergency room due to general malaise. Clindamycin oral regimen increased at discharge to 450 mg p.o. TID. Patient has remained afebrile. No leukocytosis. She appears well. Discharged on Zofran as needed for nausea. Continue dressing changes as previously advised by wound clinic. Apply Inez to lateral right lower extremity wound with Adaptic. SurePress bilaterally. Elevate right lower extremity. Blood cultures drawn in ER. Follow-up with primary care physician in 1 week. Follow-up with wound center next week. 2. 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 3. Venous insufficiency/peripheral arterial disease 4. Morbid obesity-encourage diet and lifestyle modifications. 5. Depression-continue home sertraline regimen. 6. IBS-continue home Imodium as needed regimen. General: Alert, Oriented x3, Cooperative, No apparent distress HEENT: Atraumatic, PERRLA, EOMI, Normocephalic Neck: Supple, No JVD, Negative Carotid Bruits Lungs: Clear to auscultation, Normal air movement Cardiovascular: Regular rate, Regular Rhythm, Normal S1, Normal S2, No murmurs Abdomen: Bowel Sounds Present, Soft, Non Tender, Non-Distended, Obese Extremities: - - Chronic lymphedema bilateral lower extremities, right slightly larger than left. Skin: - - Chronic skin changes bilateral lower extremities. Right lower extremity with greater area of hyperpigmentation. Lateral right lower extremity with superficial wound, minimal serosanguineous drainage. Musculoskeletal: No Tenderness to Palpation of Joints or Extremities Neurological: Cranial nerves II-XII grossly intact, Neuro grossly intact Psych/Mental Status: Normal Affect, Appropriate Patient seen exam prior to discharge. Physical assessment as noted above. Patient is stable for discharge home to follow-up with primary care physician and wound center. This patient was seen by SVEN Hamilton under the supervision of Dr. Martinez. Discharge Diet: 1800 Calorie Control Diet Discharge Activity: Return to Normal Activity Call your doctor if you observe: Fever of 101 or Higher, Shortness of breath, Dizziness, Fainting spells, Chest pain, Calf discomfort Home Medications: Medications to take at Discharge Furosemide 20 mg PO DAILY 02/16/16 Calcium Carbonate/Vitamin D3 [Calcium 600-Vit D3 500 Softgel] 1 tab PO BID 12/13/17 Ferrous Sulfate 325 mg PO DAILY 12/13/17 Loperamide [Imodium] 4 - 6 mg PO Q6H PRN PRN 12/13/17 Melatonin 3 mg PO DAILY 12/13/17 Sertraline HCl [Zoloft] 25 mg PO DAILY 12/13/17 Warfarin [Coumadin] 5 mg PO SUMOWETHFR 12/13/17 Zinc Sulfate (50mg elemental) [Zinc Sulfate] 220 mg PO QHS 12/13/17 Acetaminophen [Tylenol] 1,000 mg PO Q6H PRN PRN 12/21/17 Ascorbic Acid [Vitamin C] 2,000 mg PO BID 12/21/17 Ergocalciferol [Vitamin D] 50,000 unit PO Q7D 12/21/17 Loperamide HCl [Imodium A-D] 2 mg PO PRN PRN 12/21/17 Magnesium Oxide [Magnesium] 400 mg PO BID 12/21/17 Warfarin Sodium 4.5 mg PO TUSA 12/21/17 Clindamycin [Cleocin] 450 mg PO TID #63 cap 12/22/17 Ondansetron HCl [Zofran] 4 mg PO Q6H #20 tab 12/22/17 Following Prescrptions Were Given to Patient: Ondansetron HCl [Zofran] 4 mg PO Q6H #20 tab Clindamycin [Cleocin] 450 mg PO TID #63 cap Primary Care Physician: Marcela Sargent MD [Primary Care Provider] - Please follow up with your Primary Care Physician in: 1 Week Please Follow Up With: Wound Center When: Call for appointment next week Disposition: Home Minutes spent on discharge:: 35 Patient Condition:: Stable Medical Necessity - Tobacco Use Smoking Status: Never smoker Meaningful Use Info Meaningful Use Diagnoses (Choose all that apply): None applicable <Mery Brown E - Last Filed: 12/22/17 14:01> Discharge Date and Diagnosis - Secondary Discharge Diagnosis Chronic Problems Peripheral arterial disease (Chronic) 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) Varicose veins of right lower extremity with both ulcer of calf and inflammation (Chronic) Current use of longwall foreman anticoagulation (Chronic) Venous insufficiency of both lower extremities (Chronic) Chronic pain of right lower extremity (Chronic) Pain of left lower extremity (Chronic) History of pulmonary embolism (Chronic) Post-phlebitic syndrome (Chronic) Morbid obesity (Chronic) Irritable bowel syndrome (IBS) (Chronic) Arthritis (Chronic) 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 She was admitted for right leg cellulitis. She does have a history of chronic right leg lymphedema. When she came into the ED, she had swelling and erythema of the right leg. She was started on clindamycin 2 days before coming to the ED yesterday but she stated that redness has been expanding. Today, erythema of the right leg is completely resolved. She has been afebrile overnight. She has no leukocytosis. There was no evidence of sepsis or severe sepsis. Recent wound culture revealed staph hemolytic and staph epidermidis. Both were sensitive to clindamycin. Her routine blood work was remarkable for chronic anemia, otherwise normal. She has been on Coumadin for history of DVT and PE and her INR was 1.9. After admission, she was just continued on clindamycin as there was no indication to change the antibiotics or start her on IV antibiotics. There was no indication for admission. Patient discharged home in a stable medical condition, discharged on the same antibiotic clindamycin to complete her course of 1 week, highly recommended to elevate her right leg above the level of her heart when she lays down or sit because that will help the edema and swelling of the right leg, recommended to use her chronic medications without any changes, follow-up with PCP in 1 week, follow-up with the wound care center this coming week. - Physical Exam General: Alert, Oriented x3, Cooperative, No apparent distress. HEENT: Atraumatic, PERRLA, EOMI. Neck: Supple, No JVD, Negative Carotid Bruits, Trachea Midline, Thyroid Normal. Lungs: Diminished breath sounds bilateral, otherwise clear, No rhonchi, No wheeze, No rales. Cardiovascular: Regular rate, Regular Rhythm, Normal S1, Normal S2, PMI Normal. Abdomen: Bowel Sounds Present, Soft, Non Tender, Non-Distended, No Hepato-splenomegaly, obese. Extremities: No clubbing, No cyanosis, lymphedema and stasis dermatitis on the right leg. Erythema of the right leg is almost gone. Skin: No rashes, No breakdown Neurological: Neuro grossly intact Vital Signs are stable. This note was generated with [employer] dictation software. It may contain incorrect words, spelling, and punctuation that were not noted in checking the note before signing. Minutes spent on discharge:: 25 Patient Condition:: Stable Meaningful Use Info Meaningful Use Diagnoses (Choose all that apply): None applicable Code Visit OBSV E&M: 11363 Observation care discharge
[2017-12-22 15:50] VITALS: BP 138/80; PULSE 79; RESP 18; TEMP 36.7; O2SAT 97
[2017-12-22] MEDS: Loperamide 2 MG Capsule PO (16:00)
== END 2017-12-22 16:49 | disposition home or self-care (01) ==
LOC: ED 16:18 → MS3 18:10
PROVIDERS: Admitting Provider Family Medicine; Emergency Provider Emergency Medicine; Visit Provider Hospitalist
DX: L03.115 Cellulitis of right lower limb (principal); I73.9 Peripheral vascular disease, unspecified; K58.9 Irritable bowel syndrome, unspecified; E66.01 Morbid (severe) obesity due to excess calories; Z68.43 Body mass index [BMI] 50.0-59.9, adult; Z71.3 Dietary counseling and surveillance; Z86.711 Personal history of pulmonary embolism; F32.9 Major depressive disorder, single episode, unspecified; Z79.899 Other long term (current) drug therapy; Z79.01 Long term (current) use of anticoagulants; I83.223 Varicose veins of left lower extremity with both ulcer of ankle and inflammation; L97.329 Non-pressure chronic ulcer of left ankle with unspecified severity; I83.212 Varicose veins of right lower extremity with both ulcer of calf and inflammation; L97.219 Non-pressure chronic ulcer of right calf with unspecified severity; D64.9 Anemia, unspecified; G89.29 Other chronic pain; Z86.718 Personal history of other venous thrombosis and embolism
CPT/HCPCS: 36415; 80048; 84703; 85025; 85610; 87040; 96365; 96366; 96372; 99218; 99284; J7040; A4216; G0378

== ENCOUNTER 2018-01-11 13:00 | Outpatient (RCR) | payer MEDICAID, SELFPAY ==
[2017-12-22 01:55] VITALS: BP 136/77; PULSE 88; RESP 20; TEMP 36.6
[2017-12-27 12:03] VITALS: BP 147/93; PULSE 107; RESP 18; TEMP 36.6
--- NOTE | 2017-12-27 12:34 | PCM.WC.PN ---
(1) Open wound of right lower extremity Status: Chronic Current Visit: Yes Code(s): S81.801A - Unspecified open wound, right lower leg, initial encounter (2) Cellulitis of right lower extremity Status: Acute Current Visit: No Code(s): L03.115 - Cellulitis of right lower limb (3) Peripheral arterial disease Status: Chronic Current Visit: No Code(s): I73.9 - Peripheral vascular disease, unspecified (4) Venous insufficiency of both lower extremities Status: Chronic Current Visit: No Code(s): I87.2 - Venous insufficiency (chronic) (peripheral) Type of Wound Date of Service: 12/27/17 Chief Complaint: Traumatic wound, right lower extremity. History of Wound: Ms. Carter is a 42yo who presented to the wound center to four-week history of nonhealing right lower extremity wound. Initially noted after a fall. She had tried to manage it at home with antibiotic ointment and some other OTC wound care product without any significant improvement. She was also seen about a week ago at the [facility] emergency room and started on levofloxacin for presumed cellulitis. She still however reports significant lower extremity pain. She feels well otherwise and denies chills,, nausea, vomiting or any change in her bowel habit. Progress of Wound: Recent hospital admission to manage right lower extremity cellulitis. Otherwise stable wound. - Physical Exam Vital Signs Temp Pulse Resp BP 97.8 F 107 H 18 147/93 H 12/27/17 12:03 12/27/17 12:03 12/27/17 12:03 12/27/17 12:03 General: Alert, Oriented x3, Cooperative, No apparent distress HEENT: Atraumatic Oral: Moist Mucosa Neck: Supple Lungs: Normal air movement Abdomen: Non Tender, Obese Extremities: Edema Skin: Ulcer/ Wound Wound Measurements and Assessment WC - Nurse 1 - General Ulcer Measurement Start: 12/27/17 12:00 Freq: Status: Active Protocol: Activity Type Activity Date Activity User E-Sign Co-Sign Detail Recorded Client Recorded Date Recorded By Document 12/27/17 12:03 [facility] [id number] 12/27/17 12:09 [facility] 12/27/17 12:03 Wound Center Nurse 1 [Ulcer Assessment] #3 Right Lateral LE -Combined with other wound No -Current Size (cm) - Length 0.8 -Current Size (cm) - Width 0.8 -Current Size (cm) - Depth 0.2 -Total Square Cm 0.64 -Photo Taken No -Epithelialization None Present -Tunneling No -Undermining/Tunneling No -Circular Undermining No -Exudate Amt None Present (0 %) -Wound Margin Distinct, Outline Attached -Granulation Amt Small (1-33%) -Granulation Quality [place] -Slough/Fibrin Yes -Necrosis Amt Large (67-100%) -Necrotic Tissue Type Adherent Slough -Texture (Meg-wound Skin Appearance) Scarring -Moisture (Meg-wound Skin Appearance Assessed ) -Color (Meg-wound Skin Appearance) Erythema Hemosiderin Staining -Temperature (Emg-wound Skin No Abnormality Appearance) (Pt Warm) -Tenderness on Palpation (Meg-wound Yes Skin Appearance) -Ulcer Cleansing Rinsed/ Irrigated with Saline -Foul Odor after Cleansing No -Anesthetic Used 4% Lidocaine Solution 5% Lidocaine Gel [Edema Assessment] -Lower Limb Edema Present Yes -Right Calf (cm) 48.5 -Right Ankle (cm) 31 -Left Calf (cm) 60.1 -Left Ankle (cm) 35.1 WC - Nurse 2 - General Ulcer CM Notes Start: 12/27/17 12:00 Freq: Status: Active Protocol: Activity Type Activity Date Activity User E-Sign Co-Sign Detail Recorded Client Recorded Date Recorded By Document 12/27/17 12:20 MW [id number] 12/27/17 12:23 MW 12/27/17 12:20 Wound Center Nurse 2 [Procedure/Treatment] #3 Right Lateral LE -Time 12:20 -Correct Patient Yes -Correct Side, Site, Position Yes -Correct Procedure Yes -Procedure Performed Yes -Type of Procedure Debridement -Clinical Debridement Subcutaneous -Post Debridement Size (cm) - Length 1.0 -Post Debridement Size (cm) - Width 1.0 -Post Debridement Size (cm) - Depth 0.1 -Total Square Cm 1.00 -Wound/Ulcer Outcome Not Healed -Ulcer Cleansing Rinsed/ Irrigated with Saline -Foul Odor after Cleansing No -Bioengineered Tissue No -Bleeding Controlled with Pressure -Treatment Response Procedure Tolerated Well [See Physician Procedure note for Specifics] Pain Scale: 0-10 Numeric [Pain] -Is Patient Pain Free? Yes Musculoskeletal: No Muscle Wasting Neurological: Cranial nerves II-XII grossly intact Psych/Mental Status: Normal Affect Debridement Note Post-Debridement Measurements/Treatment WC - Nurse 2 - General Ulcer CM Notes Start: 12/27/17 12:00 Freq: Status: Active Protocol: Activity Type Activity Date Activity User E-Sign Co-Sign Detail Recorded Client Recorded Date Recorded By Document 12/27/17 12:20 MW [id number] 12/27/17 12:23 MW 12/27/17 12:20 Wound Center Nurse 2 #3 Right Lateral LE -Time 12:20 -Correct Patient Yes -Correct Side, Site, Position Yes -Correct Procedure Yes -Procedure Performed Yes -Type of Procedure Debridement -Clinical Debridement Subcutaneous -Post Debridement Size (cm) - Length 1.0 -Post Debridement Size (cm) - Width 1.0 -Post Debridement Size (cm) - Depth 0.1 -Total Square Cm 1.00 -Wound/Ulcer Outcome Not Healed -Ulcer Cleansing Rinsed/ Irrigated with Saline -Foul Odor after Cleansing No -Bioengineered Tissue No -Bleeding Controlled with Pressure -Treatment Response Procedure Tolerated Well Pain Scale: 0-10 Numeric Is Patient Pain Free? Yes Wound debrided: Right lower extremity Wound Grade/Stage: Stage II Type of Debridement: Excisional debridement Anesthesia Used: 4% Lidocaine Solution Depth: Down to and including healthy tissue, in the subcutaneous layer Percentage of wound debrided: 100 Instrument Used: 3mm curette Tissue Removed: Slough and devitalized tissue Severity: Fat Layer Exposed Amount of bleeding with debridement: Mild Bleeding Controlled with: Pressure Patient tolerated procedure well Assessment/Plan Active Problems Open wound of right lower extremity (Chronic) Assessment: Right lower extremity wound status post trauma. Nonhealing. Right lower extremity cellulitis. Bilateral chronic lower extremity edema. Right worse than left. Plan: Moderate worsening of right lower extremity swelling with clear drainage from the wound site. Debridement done as documented above. Procedure was well-tolerated. She was started on clindamycin at her last visit and also during her hospital stay. Continue and complete. Continue Inez with Adaptic over top. Change daily. Will like to switch to a light 3M wrap however patient is not open to this. Continue SurePress. Strongly advised to elevate her lower extremities when sitting and in bed and avoid idle standing. Exercise also recommended. ABIs and venous studies was also ordered. Last on in 2015. Increased protein intake/supplements also recommended. Follow-up here in 1 week. She was advised to call with any questions or concerns. This note was generated with [employer] software. It may contain incorrect words, spelling, and punctuation that were not noted in checking the note before signing.
--- NOTE | 2017-12-27 12:40 | PN.PCM_ITS ---
(1) Open wound of right lower extremity Status: Chronic Current Visit: Yes Code(s): S81.801A - Unspecified open wound, right lower leg, initial encounter (2) Cellulitis of right lower extremity Status: Acute Current Visit: No Code(s): L03.115 - Cellulitis of right lower limb (3) Peripheral arterial disease Status: Chronic Current Visit: No Code(s): I73.9 - Peripheral vascular disease, unspecified (4) Venous insufficiency of both lower extremities Status: Chronic Current Visit: No Code(s): I87.2 - Venous insufficiency ( chronic) (peripheral) Type of Wound Date of Service: 12/27/17 Chief Complaint: Traumatic wound, right lower extremity. History of Wound: Ms. Carter is a 42yo who presented to the wound center to four -week history of nonhealing right lower extremity wound. Initially noted after a fall. She had tried to manage it at home with antibiotic ointment and some other OTC wound care product without any significant improvement. She was also seen about a week ago at the [place] emergency room and started on levofloxacin for presumed cellulitis. She still however reports significant lower extremity pain. She feels well otherwise and denies chills,, nausea, vomiting or any change in her bowel habit. Progress of Wound: Recent hospital admission to manage right lower extremity cellulitis. Otherwise stable wound. - Physical Exam Vital Signs Temp Pulse Resp BP 97.8 F 107 H 18 147/93 H 12/27/17 12:03 12/27/17 12:03 12/27/17 12:03 12/27/17 12:03 General: Alert, Oriented x3, Cooperative, No apparent distress HEENT: Atraumatic Oral: Moist Mucosa Neck: Supple Lungs: Normal air movement Abdomen: Non Tender, Obese Extremities: Edema Skin: Ulcer/ Wound Wound Measurements and Assessment WC - Nurse 1 - General Ulcer Measurement Start: 12/27/17 12:00 Freq: Status: Active Protocol: Activity Type Activity Date Activity User E-Sign Co-Sign Detail Recorded Client Recorded Date Recorded By Document 12/27/17 12:[address] [facility] [id number] 12/27/17 12:[address] [facility] 12/27/17 12:03 Wound Center Nurse 1 [Ulcer Assessment] #3 Right Lateral LE -Combined with other wound No -Current Size (cm) - Length 0.8 -Current Size (cm) - Width 0.8 -Current Size (cm) - Depth 0.2 -Total Square Cm 0.64 -Photo Taken No -Epithelialization None Present -Tunneling No -Undermining/Tunneling No -Circular Undermining No -Exudate Amt None Present (0 %) -Wound Margin Distinct, Outline Attached -Granulation Amt Small (1-33%) -Granulation Quality [place] -Slough/Fibrin Yes -Necrosis Amt Large (67-100%) -Necrotic Tissue Type Adherent Slough -Texture (Meg-wound Skin Appearance) Scarring -Moisture (Meg-wound Skin Appearance Assessed ) -Color (Meg-wound Skin Appearance) Erythema Hemosiderin Staining -Temperature (Meg-wound Skin No Abnormality Appearance) (Pt Warm) -Tenderness on Palpation (Meg-wound Yes Skin Appearance) -Ulcer Cleansing Rinsed/ Irrigated with Saline -Foul Odor after Cleansing No -Anesthetic Used 4% Lidocaine Solution 5% Lidocaine Gel [Edema Assessment] -Lower Limb Edema Present Yes -Right Calf (cm) 48.5 -Right Ankle (cm) 31 -Left Calf (cm) 60.1 -Left Ankle (cm) 35.1 WC - Nurse 2 - General Ulcer CM Notes Start: 12/27/17 12:00 Freq: Status: Active Protocol: Activity Type Activity Date Activity User E-Sign Co-Sign Detail Recorded Client Recorded Date Recorded By Document 12/27/17 12:20 MW [id number] 12/27/17 12:23 MW 12/27/17 12:20 Wound Center Nurse 2 [Procedure/Treatment] #3 Right Lateral LE -Time 12:20 -Correct Patient Yes -Correct Side, Site, Position Yes -Correct Procedure Yes -Procedure Performed Yes -Type of Procedure Debridement -Clinical Debridement Subcutaneous -Post Debridement Size (cm) - Length 1.0 -Post Debridement Size (cm) - Width 1.0 -Post Debridement Size (cm) - Depth 0.1 -Total Square Cm 1.00 -Wound/Ulcer Outcome Not Healed -Ulcer Cleansing Rinsed/ Irrigated with Saline -Foul Odor after Cleansing No -Bioengineered Tissue No -Bleeding Controlled with Pressure -Treatment Response Procedure Tolerated Well [See Physician Procedure note for Specifics] Pain Scale: 0-10 Numeric [Pain] -Is Patient Pain Free? Yes Musculoskeletal: No Muscle Wasting Neurological: Cranial nerves II-XII grossly intact Psych/Mental Status: Normal Affect Debridement Note Post-Debridement Measurements/Treatment WC - Nurse 2 - General Ulcer CM Notes Start: 12/27/17 12:00 Freq: Status: Active Protocol: Activity Type Activity Date Activity User E-Sign Co-Sign Detail Recorded Client Recorded Date Recorded By Document 12/27/17 12:20 MW [id number] 12/27/17 12:23 MW 12/27/17 12:20 Wound Center Nurse 2 #3 Right Lateral LE -Time 12:20 -Correct Patient Yes -Correct Side, Site, Position Yes -Correct Procedure Yes -Procedure Performed Yes -Type of Procedure Debridement -Clinical Debridement Subcutaneous -Post Debridement Size (cm) - Length 1.0 -Post Debridement Size (cm) - Width 1.0 -Post Debridement Size (cm) - Depth 0.1 -Total Square Cm 1.00 -Wound/Ulcer Outcome Not Healed -Ulcer Cleansing Rinsed/ Irrigated with Saline -Foul Odor after Cleansing No -Bioengineered Tissue No -Bleeding Controlled with Pressure -Treatment Response Procedure Tolerated Well Pain Scale: 0-10 Numeric Is Patient Pain Free? Yes Wound debrided: Right lower extremity Wound Grade/Stage: Stage II Type of Debridement: Excisional debridement Anesthesia Used: 4% Lidocaine Solution Depth: Down to and including healthy tissue, in the subcutaneous layer Percentage of wound debrided: 100 Instrument Used: 3mm curette Tissue Removed: Slough and devitalized tissue Severity: Fat Layer Exposed Amount of bleeding with debridement: Mild Bleeding Controlled with: Pressure Patient tolerated procedure well Assessment/Plan Active Problems Open wound of right lower extremity (Chronic) Assessment: Right lower extremity wound status post trauma. Nonhealing. Right lower extremity cellulitis. Bilateral chronic lower extremity edema. Right worse than left. Plan: Moderate worsening of right lower extremity swelling with clear drainage from the wound site. Debridement done as documented above. Procedure was well- tolerated. She was started on clindamycin at her last visit and also during her hospital stay. Continue and complete. Continue Inez with Adaptic over top. Change daily. Will like to switch to a light 3M wrap however patient is not open to this. Continue SurePress. Strongly advised to elevate her lower extremities when sitting and in bed and avoid idle standing. Exercise also recommended. ABIs and venous studies was also ordered. Last on in 2015. Increased protein intake/supplements also recommended. Follow-up here in 1 week. She was advised to call with any questions or concerns. This note was generated with [employer] software. It may contain incorrect words, spelling, and punctuation that were not noted in checking the note before signing.
[2018-01-02 12:02] VITALS: BP 154/88; PULSE 84; RESP 18; TEMP 36.3
--- NOTE | 2018-01-02 12:36 | PCM.WC.PN ---
(1) Open wound of right lower extremity Status: Chronic Current Visit: Yes Code(s): S81.801A - Unspecified open wound, right lower leg, initial encounter (2) Cellulitis of right lower extremity Status: Acute Current Visit: No Code(s): L03.115 - Cellulitis of right lower limb (3) Peripheral arterial disease Status: Chronic Current Visit: No Code(s): I73.9 - Peripheral vascular disease, unspecified (4) Venous insufficiency of both lower extremities Status: Chronic Current Visit: No Code(s): I87.2 - Venous insufficiency (chronic) (peripheral) Type of Wound Date of Service: 01/02/18 Chief Complaint: Traumatic wound, right lower extremity. History of Wound: Ms. Carter is a 42yo who presented to the wound center to four-week history of nonhealing right lower extremity wound. Initially noted after a fall. She had tried to manage it at home with antibiotic ointment and some other OTC wound care product without any significant improvement. She was also seen about a week ago at the [facility] emergency room and started on levofloxacin for presumed cellulitis. She still however reports significant lower extremity pain. She feels well otherwise and denies chills,, nausea, vomiting or any change in her bowel habit. Progress of Wound: Stable. - Physical Exam Vital Signs Temp Pulse Resp BP 97.3 F L 84 18 154/88 H 01/02/18 12:02 01/02/18 12:02 01/02/18 12:02 01/02/18 12:02 General: Alert, Oriented x3, Cooperative, No apparent distress HEENT: Atraumatic Oral: Moist Mucosa Neck: Supple Lungs: Normal air movement Abdomen: Non Tender, Obese Extremities: No cyanosis, Edema Skin: Ulcer/ Wound Wound Measurements and Assessment WC - Nurse 1 - General Ulcer Measurement Start: 12/27/17 12:00 Freq: Status: Active Protocol: Activity Type Activity Date Activity User E-Sign Co-Sign Detail Recorded Client Recorded Date Recorded By Document 01/02/18 12:02 [id number] 01/02/18 12:06 01/02/18 12:02 Wound Center Nurse 1 [Ulcer Assessment] #3 Right Lateral LE -Combined with other wound No -Current Size (cm) - Length 0.5 -Current Size (cm) - Width 1.1 -Current Size (cm) - Depth 0.1 -Total Square Cm 0.55 -Photo Taken No -Epithelialization Medium 34-66% -Tunneling No -Undermining/Tunneling No -Circular Undermining No -Exudate Amt None Present (0 %) -Exudate Type Serosanguineous -Wound Margin Distinct, Outline Attached -Granulation Amt Medium (34-66%) -Granulation Quality Red -Slough/Fibrin Yes -Necrosis Amt Small (1-33%) -Necrotic Tissue Type Adherent Slough -Structure Exposed None/Limited to Skin Breakdown -Texture (Meg-wound Skin Appearance) Scarring -Moisture (Meg-wound Skin Appearance Dry/Scaly ) -Color (Meg-wound Skin Appearance) Hemosiderin Staining -Temperature (Meg-wound Skin No Abnormality Appearance) (Pt Warm) -Tenderness on Palpation (Meg-wound No Skin Appearance) -Ulcer Cleansing Rinsed/ Irrigated with Saline -Foul Odor after Cleansing No -Anesthetic Used 4% Lidocaine Solution [Edema Assessment] -Lower Limb Edema Present Yes -Right Calf (cm) 55 -Right Ankle (cm) 34 -Left Calf (cm) 46.5 -Left Ankle (cm) 30 WC - Nurse 2 - General Ulcer CM Notes Start: 12/27/17 12:00 Freq: Status: Active Protocol: Activity Type Activity Date Activity User E-Sign Co-Sign Detail Recorded Client Recorded Date Recorded By Document 01/02/18 12:20 MW [id number] 01/02/18 12:23 MW 01/02/18 12:20 Wound Center Nurse 2 [Procedure/Treatment] #3 Right Lateral LE -Time 12:21 -Correct Patient Yes -Correct Side, Site, Position Yes -Correct Procedure Yes -Procedure Performed Yes -Type of Procedure Debridement -Clinical Debridement Subcutaneous -Post Debridement Size (cm) - Length 0.6 -Post Debridement Size (cm) - Width 0.6 -Post Debridement Size (cm) - Depth 0.1 -Total Square Cm 0.36 -Wound/Ulcer Outcome Not Healed -Ulcer Cleansing Rinsed/ Irrigated with Saline -Foul Odor after Cleansing No -Bioengineered Tissue No -Bleeding Controlled with Pressure -Treatment Response Procedure Tolerated Well [See Physician Procedure note for Specifics] Pain Scale: 0-10 Numeric [Pain] -Is Patient Pain Free? Yes Musculoskeletal: No Muscle Wasting Neurological: Cranial nerves II-XII grossly intact Psych/Mental Status: Normal Affect Debridement Note Post-Debridement Measurements/Treatment WC - Nurse 2 - General Ulcer CM Notes Start: 12/27/17 12:00 Freq: Status: Active Protocol: Activity Type Activity Date Activity User E-Sign Co-Sign Detail Recorded Client Recorded Date Recorded By Document 12/27/17 12:20 MW [id number] 12/27/17 12:23 MW Document 01/02/18 12:20 MW [id number] 01/02/18 12:23 MW 12/27/17 01/02/18 12:20 12:20 Wound Center Nurse 2 #3 Right Lateral LE -Time 12:20 12:21 -Correct Patient Yes Yes -Correct Side, Site, Position Yes Yes -Correct Procedure Yes Yes -Procedure Performed Yes Yes -Type of Procedure Debridement Debridement -Clinical Debridement Subcutaneous Subcutaneous -Post Debridement Size (cm) - Length 1.0 0.6 -Post Debridement Size (cm) - Width 1.0 0.6 -Post Debridement Size (cm) - Depth 0.1 0.1 -Total Square Cm 1.00 0.36 -Wound/Ulcer Outcome Not Healed Not Healed -Ulcer Cleansing Rinsed/ Rinsed/ Irrigated with Irrigated with Saline Saline -Foul Odor after Cleansing No No -Bioengineered Tissue No No -Bleeding Controlled with Pressure Pressure -Treatment Response Procedure Procedure Tolerated Well Tolerated Well Pain Scale: 0-10 Numeric Is Patient Pain Free? Yes Yes Wound debrided: Right lower extremity Wound Grade/Stage: Stage II Type of Debridement: Excisional debridement Anesthesia Used: 4% Lidocaine Solution, 5% Lidocaine Gel Depth: Down to and including healthy tissue, in the subcutaneous layer Percentage of wound debrided: 100 Instrument Used: 3mm curette Tissue Removed: Slough and devitalized tissue Severity: Fat Layer Exposed Amount of bleeding with debridement: Mild Bleeding Controlled with: Pressure Patient tolerated procedure well Assessment/Plan Active Problems Open wound of right lower extremity (Chronic) Assessment: Right lower extremity wound status post trauma. Nonhealing. Right lower extremity cellulitis. Bilateral chronic lower extremity edema. Right worse than left. Plan: Ms. Carter appears to be not very compliant with instructions. She states that she is using a gel as opposed to Inez which was prescribed. She also declined use of the 3M wrap for proper compression however, no significant drainage noted today. Continue Inez with Adaptic over top. Change daily. Continue SurePress. Strongly advised to elevate her lower extremities when sitting and in bed and avoid idle standing. Exercise also recommended. Compliance strongly encouraged. ABIs and venous studies was also ordered. Soon to be done. Increased protein intake/supplements also recommended. Follow-up here in 1 week. She was advised to call with any questions or concerns. This note was generated with [employer] dictation software. It may contain incorrect words, spelling, and punctuation that were not noted in checking the note before signing.
--- NOTE | 2018-01-02 12:39 | PN.PCM_ITS ---
(1) Open wound of right lower extremity Status: Chronic Current Visit: Yes Code(s): S81.801A - Unspecified open wound, right lower leg, initial encounter (2) Cellulitis of right lower extremity Status: Acute Current Visit: No Code(s): L03.115 - Cellulitis of right lower limb (3) Peripheral arterial disease Status: Chronic Current Visit: No Code(s): I73.9 - Peripheral vascular disease, unspecified (4) Venous insufficiency of both lower extremities Status: Chronic Current Visit: No Code(s): I87.2 - Venous insufficiency ( chronic) (peripheral) Type of Wound Date of Service: 01/02/18 Chief Complaint: Traumatic wound, right lower extremity. History of Wound: Ms. Carter is a 42yo who presented to the wound center to four -week history of nonhealing right lower extremity wound. Initially noted after a fall. She had tried to manage it at home with antibiotic ointment and some other OTC wound care product without any significant improvement. She was also seen about a week ago at the [facility] emergency room and started on levofloxacin for presumed cellulitis. She still however reports significant lower extremity pain. She feels well otherwise and denies chills,, nausea, vomiting or any change in her bowel habit. Progress of Wound: Stable. - Physical Exam Vital Signs Temp Pulse Resp BP 97.3 F L 84 18 154/88 H 01/02/18 12:02 01/02/18 12:02 01/02/18 12:02 01/02/18 12:02 General: Alert, Oriented x3, Cooperative, No apparent distress HEENT: Atraumatic Oral: Moist Mucosa Neck: Supple Lungs: Normal air movement Abdomen: Non Tender, Obese Extremities: No cyanosis, Edema Skin: Ulcer/ Wound Wound Measurements and Assessment WC - Nurse 1 - General Ulcer Measurement Start: 12/27/17 12:00 Freq: Status: Active Protocol: Activity Type Activity Date Activity User E-Sign Co-Sign Detail Recorded Client Recorded Date Recorded By Document 01/02/18 12:02 [id number] 01/02/18 12:06 01/02/18 12:02 Wound Center Nurse 1 [Ulcer Assessment] #3 Right Lateral LE -Combined with other wound No -Current Size (cm) - Length 0.5 -Current Size (cm) - Width 1.1 -Current Size (cm) - Depth 0.1 -Total Square Cm 0.55 -Photo Taken No -Epithelialization Medium 34-66% -Tunneling No -Undermining/Tunneling No -Circular Undermining No -Exudate Amt None Present (0 %) -Exudate Type Serosanguineous -Wound Margin Distinct, Outline Attached -Granulation Amt Medium (34-66%) -Granulation Quality Red -Slough/Fibrin Yes -Necrosis Amt Small (1-33%) -Necrotic Tissue Type Adherent Slough -Structure Exposed None/Limited to Skin Breakdown -Texture (Meg-wound Skin Appearance) Scarring -Moisture (Meg-wound Skin Appearance Dry/Scaly ) -Color (Meg-wound Skin Appearance) Hemosiderin Staining -Temperature (Meg-wound Skin No Abnormality Appearance) (Pt Warm) -Tenderness on Palpation (Meg-wound No Skin Appearance) -Ulcer Cleansing Rinsed/ Irrigated with Saline -Foul Odor after Cleansing No -Anesthetic Used 4% Lidocaine Solution [Edema Assessment] -Lower Limb Edema Present Yes -Right Calf (cm) 55 -Right Ankle (cm) 34 -Left Calf (cm) 46.5 -Left Ankle (cm) 30 WC - Nurse 2 - General Ulcer CM Notes Start: 12/27/17 12:00 Freq: Status: Active Protocol: Activity Type Activity Date Activity User E-Sign Co-Sign Detail Recorded Client Recorded Date Recorded By Document 01/02/18 12:20 MW [id number] 01/02/18 12:23 MW 01/02/18 12:20 Wound Center Nurse 2 [Procedure/Treatment] #3 Right Lateral LE -Time 12:21 -Correct Patient Yes -Correct Side, Site, Position Yes -Correct Procedure Yes -Procedure Performed Yes -Type of Procedure Debridement -Clinical Debridement Subcutaneous -Post Debridement Size (cm) - Length 0.6 -Post Debridement Size (cm) - Width 0.6 -Post Debridement Size (cm) - Depth 0.1 -Total Square Cm 0.36 -Wound/Ulcer Outcome Not Healed -Ulcer Cleansing Rinsed/ Irrigated with Saline -Foul Odor after Cleansing No -Bioengineered Tissue No -Bleeding Controlled with Pressure -Treatment Response Procedure Tolerated Well [See Physician Procedure note for Specifics] Pain Scale: 0-10 Numeric [Pain] -Is Patient Pain Free? Yes Musculoskeletal: No Muscle Wasting Neurological: Cranial nerves II-XII grossly intact Psych/Mental Status: Normal Affect Debridement Note Post-Debridement Measurements/Treatment WC - Nurse 2 - General Ulcer CM Notes Start: 12/27/17 12:00 Freq: Status: Active Protocol: Activity Type Activity Date Activity User E-Sign Co-Sign Detail Recorded Client Recorded Date Recorded By Document 12/27/17 12:20 MW [id number] 12/27/17 12:23 MW Document 01/02/18 12:20 MW [id number] 01/02/18 12:23 MW 12/27/17 01/02/18 12:20 12:20 Wound Center Nurse 2 #3 Right Lateral LE -Time 12:20 12:21 -Correct Patient Yes Yes -Correct Side, Site, Position Yes Yes -Correct Procedure Yes Yes -Procedure Performed Yes Yes -Type of Procedure Debridement Debridement -Clinical Debridement Subcutaneous Subcutaneous -Post Debridement Size (cm) - Length 1.0 0.6 -Post Debridement Size (cm) - Width 1.0 0.6 -Post Debridement Size (cm) - Depth 0.1 0.1 -Total Square Cm 1.00 0.36 -Wound/Ulcer Outcome Not Healed Not Healed -Ulcer Cleansing Rinsed/ Rinsed/ Irrigated with Irrigated with Saline Saline -Foul Odor after Cleansing No No -Bioengineered Tissue No No -Bleeding Controlled with Pressure Pressure -Treatment Response Procedure Procedure Tolerated Well Tolerated Well Pain Scale: 0-10 Numeric Is Patient Pain Free? Yes Yes Wound debrided: Right lower extremity Wound Grade/Stage: Stage II Type of Debridement: Excisional debridement Anesthesia Used: 4% Lidocaine Solution, 5% Lidocaine Gel Depth: Down to and including healthy tissue, in the subcutaneous layer Percentage of wound debrided: 100 Instrument Used: 3mm curette Tissue Removed: Slough and devitalized tissue Severity: Fat Layer Exposed Amount of bleeding with debridement: Mild Bleeding Controlled with: Pressure Patient tolerated procedure well Assessment/Plan Active Problems Open wound of right lower extremity (Chronic) Assessment: Right lower extremity wound status post trauma. Nonhealing. Right lower extremity cellulitis. Bilateral chronic lower extremity edema. Right worse than left. Plan: Ms. Carter appears to be not very compliant with instructions. She states that she is using a gel as opposed to Inez which was prescribed. She also declined use of the 3M wrap for proper compression however, no significant drainage noted today. Continue Inez with Adaptic over top. Change daily. Continue SurePress. Strongly advised to elevate her lower extremities when sitting and in bed and avoid idle standing. Exercise also recommended. Compliance strongly encouraged. ABIs and venous studies was also ordered. Soon to be done. Increased protein intake/supplements also recommended. Follow -up here in 1 week. She was advised to call with any questions or concerns. This note was generated with [employer] dictation software. It may contain incorrect words, spelling, and punctuation that were not noted in checking the note before signing.
--- NOTE | 2018-01-11 13:18 | VDLE_ITS ---
Reason For Study: Ulcer, edema RIGHT LEFT FV is compressible, spontaneous, phasic, FV is compressible, spontaneous, phasic, competent and demonstrates normal competent and demonstrates normal augmentation. augmentation. POP V is compressible, spontaneous, phasic, POP V is compressible, spontaneous, phasic, competent and demonstrates normal competent and demonstrates normal augmentation. augmentation. T/P Trunk is compressible. T/P Trunk is compressible. PTV is compressible. PTV is compressible. CFV is compressible with normal venous flow CFV, SFJ and PERV were not visualized. patterns. CFV demonstrated bright intraluminal echoes consistent with chronic GSV is incompetent greater than 0.5 seconds DVT. and measures 0.32 x 0.36 cm. PerV was not visualized. SSV is competent. SFJ is competent GSV above knee is competent GSV is incompetent below the knee with reflux greater than 0.5 seconds and measures 0.31 x 0.30 cm. SSV is competent. Procedure Exam performed in department. The exam was of fair technical quality due to pt body habitus.. Pt is 5'6 and 344 lbs. Limited views of veins. Pt was unable to tolerate compression in the left groin. Interpretation Summary Chronic venous changes are noted in the right common femoral vein, which demonstrates bright intraluminal echogenicity. Deep veins of the right lower extremity are patent and compressible. The right femoral vein and popliteal vein are competent. The right peroneal vein was not visualized. Deep veins of the left lower extremity are patent and compressible. The left common femoral vein and peroneal vein were not visualized. The left femoral vein and popliteal vein are competent. There is no evidence of acute deep vein thrombosis on either side. Great saphenous veins are patent and compressible bilaterally. The right sapheno-femoral junction is competent. The left sapheno- femoral junction was not visualized. The right great saphenous vein is competent above the knee. The right great saphenous vein is incompetent below the knee. The left great saphenous vein is segmentally incompetent. Small saphenous veins are patent and competent bilaterally. Ordering Physician: Mateus Rodriguez Performed By: René Guerra RVT and Student
== END 2018-01-20 23:59 ==
LOC: CVS 13:00
PROVIDERS: Referring Provider Internal Medicine; Visit Provider Nurse Practitioner Family
DX: S81.831A Puncture wound without foreign body, right lower leg, initial encounter (principal); W19.XXXA Unspecified fall, initial encounter; I73.9 Peripheral vascular disease, unspecified; I87.2 Venous insufficiency (chronic) (peripheral); L03.115 Cellulitis of right lower limb
CPT/HCPCS: 11042; 93923; 93970

== ENCOUNTER 2018-02-12 15:00 | Outpatient (RCR) | payer MEDICAID, SELFPAY ==
[2018-01-21 01:27] VITALS: BP 154/88; PULSE 84; RESP 18; TEMP 36.3
[2018-01-22 14:02] VITALS: BP 158/92; PULSE 92; RESP 18; TEMP 36.3
--- NOTE | 2018-01-23 14:47 | PCM.WC.PN ---
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 History of Wound: Patient is a 42-year-old female who presented originally to the wound center on 12/13/2017 for nonhealing wound to her right lower extremity which she obtained after a fall. She had tried to manage it at home with antibiotic ointment and some other OTC wound care product without any significant improvement. She was then seen in [place] and diagnosed with cellulitis and had been placed on levofloxacin. On 01/11/2018 she had venous duplex ultrasound which showed the right great saphenous vein is incompetent below the knee, the left great saphenous vein is segmentally incompetent. On 01/11/18 she also had ABIs which showed right 1.14 and left 1.29. no DVT bilaterally found. Wound culture from 12/16/2017 showed Staphylococcus haemolyticus and Staphylococcus epidermidis. 12/21/2017 she ended up in the ED and admitted was given Vancomycin while admitted was started on clindamycin 12/20/2017 when she was discharged. She feels well otherwise and denies chills, nausea, vomiting. Progress of Wound: Stable. - Physical Exam Vital Signs Temp Pulse Resp BP 97.3 F L 92 18 158/92 H 01/22/18 14:02 01/22/18 14:02 01/22/18 14:02 01/22/18 14:02 General: Alert, Oriented x3 HEENT: PERRLA Lungs: Clear to auscultation, Normal air movement Cardiovascular: Regular rate, Regular Rhythm Extremities: No Calf Tenderness, Diminished Peripheral Pulses, Edema - +3-+4 edema of right lower extremity. +2 edema left lower extremity. Skin: Ulcer/ Wound Wound Measurements and Assessment WC - Nurse 1 - General Ulcer Measurement Start: 01/22/18 14:02 Freq: Status: Active Protocol: Activity Type Activity Date Activity User E-Sign Co-Sign Detail Recorded Client Recorded Date Recorded By Document 01/22/18 14:02 [id number] 01/22/18 14:05 01/22/18 14:02 Wound Center Nurse 1 [Ulcer Assessment] #4 RIGHT UPPER PERRY -Combined with other wound No -Current Size (cm) - Length 0.4 -Current Size (cm) - Width 0.4 -Current Size (cm) - Depth 0.1 -Total Square Cm 0.16 -Date of Last Picture (Recall this 01/22/18 field) -Photo Taken Yes -Epithelialization None Present -Tunneling No -Undermining/Tunneling No -Circular Undermining No -Exudate Amt Small (1-33%) -Exudate Type Serosanguineous -Wound Margin Distinct, Outline Attached -Granulation Amt Large (67-100%) -Granulation Quality Red -Slough/Fibrin Yes -Necrosis Amt None Present (0 %) -Necrotic Tissue Type Adherent Slough -Structure Exposed None/Limited to Skin Breakdown -Texture (Meg-wound Skin Appearance) No Abnormality Assessed -Moisture (Meg-wound Skin Appearance No Abnormality ) Assessed -Color (Meg-wound Skin Appearance) Assessed Erythema -Temperature (Meg-wound Skin No Abnormality Appearance) (Pt Warm) -Tenderness on Palpation (Meg-wound Yes Skin Appearance) -Ulcer Cleansing Rinsed/ Irrigated with Saline -Foul Odor after Cleansing No -Anesthetic Used 4% Lidocaine Solution #3 Right Lateral LE -Combined with other wound No -Current Size (cm) - Length 0.4 -Current Size (cm) - Width 0.3 -Current Size (cm) - Depth 0.1 -Total Square Cm 0.12 -Photo Taken No -Epithelialization Large 67-100% -Tunneling No -Undermining/Tunneling No -Circular Undermining No -Exudate Amt None Present (0 %) -Exudate Type Serosanguineous -Wound Margin Distinct, Outline Attached -Granulation Amt Large (67-100%) -Granulation Quality Pale -Slough/Fibrin Yes -Necrosis Amt None Present (0 %) -Necrotic Tissue Type Adherent Slough -Structure Exposed None/Limited to Skin Breakdown -Texture (Meg-wound Skin Appearance) No Abnormality Assessed -Moisture (Meg-wound Skin Appearance No Abnormality ) Assessed -Color (Meg-wound Skin Appearance) No Abnormality Assessed -Temperature (Meg-wound Skin No Abnormality Appearance) (Pt Warm) -Tenderness on Palpation (Meg-wound No Skin Appearance) -Ulcer Cleansing Rinsed/ Irrigated with Saline -Foul Odor after Cleansing No -Anesthetic Used 4% Lidocaine Solution [Edema Assessment] -Lower Limb Edema Present Yes -Right Calf (cm) 61.5 -Right Ankle (cm) 33.5 WC - Nurse 2 - General Ulcer CM Notes Start: 01/22/18 14:02 Freq: Status: Active Protocol: Activity Type Activity Date Activity User E-Sign Co-Sign Detail Recorded Client Recorded Date Recorded By Document 01/22/18 14:34 [id number] 01/22/18 14:48 CS 01/22/18 14:34 Wound Center Nurse 2 [Procedure/Treatment] #4 RIGHT UPPER PERRY -Time 14:34 -Correct Patient Yes -Correct Side, Site, Position Yes -Correct Procedure Yes -Procedure Performed Yes -Type of Procedure Debridement -Clinical Debridement Subcutaneous -Post Debridement Size (cm) - Length 0.4 -Post Debridement Size (cm) - Width 0.3 -Post Debridement Size (cm) - Depth 0.1 -Total Square Cm 0.12 -Wound/Ulcer Outcome Not Healed -Ulcer Cleansing Not Cleansed -Foul Odor after Cleansing No -Bioengineered Tissue No -Bleeding Controlled with NA -Treatment Response Procedure Tolerated Well #3 Right Lateral LE -Time 14:36 -Correct Patient Yes -Correct Side, Site, Position Yes -Correct Procedure Yes -Procedure Performed Yes -Type of Procedure Debridement -Clinical Debridement Subcutaneous -Post Debridement Size (cm) - Length 0.3 -Post Debridement Size (cm) - Width 0.3 -Post Debridement Size (cm) - Depth 0.1 -Total Square Cm 0.09 -Wound/Ulcer Outcome Not Healed -Ulcer Cleansing Not Cleansed -Foul Odor after Cleansing No -Bioengineered Tissue No -Bleeding Controlled with NA -Treatment Response Procedure Tolerated Well [See Physician Procedure note for Specifics] Pain Scale: 0-10 Numeric [Pain] -Is Patient Pain Free? No Musculoskeletal: No Tenderness to Palpation of Joints or Extremities Neurological: Neuro grossly intact Psych/Mental Status: Normal Affect, Appropriate Debridement Note Post-Debridement Measurements/Treatment WC - Nurse 2 - General Ulcer CM Notes Start: 01/22/18 14:02 Freq: Status: Active Protocol: Activity Type Activity Date Activity User E-Sign Co-Sign Detail Recorded Client Recorded Date Recorded By Document 01/22/18 14:34 [id number] 01/22/18 14:48 01/22/18 14:34 Wound Center Nurse 2 #4 RIGHT UPPER PERRY -Time 14:34 -Correct Patient Yes -Correct Side, Site, Position Yes -Correct Procedure Yes -Procedure Performed Yes -Type of Procedure Debridement -Clinical Debridement Subcutaneous -Post Debridement Size (cm) - Length 0.4 -Post Debridement Size (cm) - Width 0.3 -Post Debridement Size (cm) - Depth 0.1 -Total Square Cm 0.12 -Wound/Ulcer Outcome Not Healed -Ulcer Cleansing Not Cleansed -Foul Odor after Cleansing No -Bioengineered Tissue No -Bleeding Controlled with NA -Treatment Response Procedure Tolerated Well #3 Right Lateral LE -Time 14:36 -Correct Patient Yes -Correct Side, Site, Position Yes -Correct Procedure Yes -Procedure Performed Yes -Type of Procedure Debridement -Clinical Debridement Subcutaneous -Post Debridement Size (cm) - Length 0.3 -Post Debridement Size (cm) - Width 0.3 -Post Debridement Size (cm) - Depth 0.1 -Total Square Cm 0.09 -Wound/Ulcer Outcome Not Healed -Ulcer Cleansing Not Cleansed -Foul Odor after Cleansing No -Bioengineered Tissue No -Bleeding Controlled with NA -Treatment Response Procedure Tolerated Well Pain Scale: 0-10 Numeric Is Patient Pain Free? No Wound debrided: Right lower lateral leg Laterality: Right Type of Debridement: Excisional debridement Anesthesia Used: 4% Lidocaine Solution Depth: in the subcutaneous layer Percentage of wound debrided: 100 Instrument Used: 3mm curette Tissue Removed: Subcutaneous tissue and slough. 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 Open wound of right lower extremity. 2. Peripheral arterial disease. 3. Venous insufficiency of both lower extremities. 4. History of cellulitis right lower extremity. 5. Current use of long-term anticoagulation. Plan: Ms. Carter appears to be not very compliant with instructions. She states that she is using a gel as opposed to Inez which was prescribed because she is out of the Inez. Continue Inez with Adaptic over top. Change daily. Continue SurePress. Stressed the importance of wearing her compression. Suspect she is very noncompliant with wearing her compression. Strongly advised to elevate her lower extremities when sitting and in bed and avoid idle standing. Exercise also recommended. Compliance strongly encouraged. Increased protein intake/supplements also recommended. Follow-up here in 1 week. She was advised to call with any questions or concerns. This note was generated with [employer] dictation software. It may contain incorrect words, spelling, and punctuation that were not noted in checking the note before signing. Code Visit 111xxx-113xx: [id number] Nayeli subq tissue 20 sq cm/<
--- NOTE | 2018-01-23 15:00 | PN.PCM_ITS ---
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 History of Wound: Patient is a 42-year-old female who presented originally to the wound center on 12/13/2017 for nonhealing wound to her right lower extremity which she obtained after a fall. She had tried to manage it at home with antibiotic ointment and some other OTC wound care product without any significant improvement. She was then seen in [place] and diagnosed with cellulitis and had been placed on levofloxacin. On 01/11/2018 she had venous duplex ultrasound which showed the right great saphenous vein is incompetent below the knee, the left great saphenous vein is segmentally incompetent. On 01/11/18 she also had ABIs which showed right 1.14 and left 1.29. no DVT bilaterally found. Wound culture from 12/16/2017 showed Staphylococcus haemolyticus and Staphylococcus epidermidis. 12/21/2017 she ended up in the ED and admitted was given Vancomycin while admitted was started on clindamycin 12/20/2017 when she was discharged. She feels well otherwise and denies chills, nausea, vomiting. Progress of Wound: Stable. - Physical Exam Vital Signs Temp Pulse Resp BP 97.3 F L 92 18 158/92 H 01/22/18 14:02 01/22/18 14:02 01/22/18 14:02 01/22/18 14:02 General: Alert, Oriented x3 HEENT: PERRLA Lungs: Clear to auscultation, Normal air movement Cardiovascular: Regular rate, Regular Rhythm Extremities: No Calf Tenderness, Diminished Peripheral Pulses, Edema - +3-+4 edema of right lower extremity. +2 edema left lower extremity. Skin: Ulcer/ Wound Wound Measurements and Assessment WC - Nurse 1 - General Ulcer Measurement Start: 01/22/18 14:02 Freq: Status: Active Protocol: Activity Type Activity Date Activity User E-Sign Co-Sign Detail Recorded Client Recorded Date Recorded By Document 01/22/18 14:02 [id number] 01/22/18 14:05 01/22/18 14:02 Wound Center Nurse 1 [Ulcer Assessment] #4 RIGHT UPPER PERRY -Combined with other wound No -Current Size (cm) - Length 0.4 -Current Size (cm) - Width 0.4 -Current Size (cm) - Depth 0.1 -Total Square Cm 0.16 -Date of Last Picture (Recall this 01/22/18 field) -Photo Taken Yes -Epithelialization None Present -Tunneling No -Undermining/Tunneling No -Circular Undermining No -Exudate Amt Small (1-33%) -Exudate Type Serosanguineous -Wound Margin Distinct, Outline Attached -Granulation Amt Large (67-100%) -Granulation Quality Red -Slough/Fibrin Yes -Necrosis Amt None Present (0 %) -Necrotic Tissue Type Adherent Slough -Structure Exposed None/Limited to Skin Breakdown -Texture (Meg-wound Skin Appearance) No Abnormality Assessed -Moisture (Meg-wound Skin Appearance No Abnormality ) Assessed -Color (Meg-wound Skin Appearance) Assessed Erythema -Temperature (Meg-wound Skin No Abnormality Appearance) (Pt Warm) -Tenderness on Palpation (Meg-wound Yes Skin Appearance) -Ulcer Cleansing Rinsed/ Irrigated with Saline -Foul Odor after Cleansing No -Anesthetic Used 4% Lidocaine Solution #3 Right Lateral LE -Combined with other wound No -Current Size (cm) - Length 0.4 -Current Size (cm) - Width 0.3 -Current Size (cm) - Depth 0.1 -Total Square Cm 0.12 -Photo Taken No -Epithelialization Large 67-100% -Tunneling No -Undermining/Tunneling No -Circular Undermining No -Exudate Amt None Present (0 %) -Exudate Type Serosanguineous -Wound Margin Distinct, Outline Attached -Granulation Amt Large (67-100%) -Granulation Quality Pale -Slough/Fibrin Yes -Necrosis Amt None Present (0 %) -Necrotic Tissue Type Adherent Slough -Structure Exposed None/Limited to Skin Breakdown -Texture (Meg-wound Skin Appearance) No Abnormality Assessed -Moisture (Meg-wound Skin Appearance No Abnormality ) Assessed -Color (Meg-wound Skin Appearance) No Abnormality Assessed -Temperature (Meg-wound Skin No Abnormality Appearance) (Pt Warm) -Tenderness on Palpation (Meg-wound No Skin Appearance) -Ulcer Cleansing Rinsed/ Irrigated with Saline -Foul Odor after Cleansing No -Anesthetic Used 4% Lidocaine Solution [Edema Assessment] -Lower Limb Edema Present Yes -Right Calf (cm) 61.5 -Right Ankle (cm) 33.5 WC - Nurse 2 - General Ulcer CM Notes Start: 01/22/18 14:02 Freq: Status: Active Protocol: Activity Type Activity Date Activity User E-Sign Co-Sign Detail Recorded Client Recorded Date Recorded By Document 01/22/18 14:34 [id number] 01/22/18 14:48 CS 01/22/18 14:34 Wound Center Nurse 2 [Procedure/Treatment] #4 RIGHT UPPER PERRY -Time 14:34 -Correct Patient Yes -Correct Side, Site, Position Yes -Correct Procedure Yes -Procedure Performed Yes -Type of Procedure Debridement -Clinical Debridement Subcutaneous -Post Debridement Size (cm) - Length 0.4 -Post Debridement Size (cm) - Width 0.3 -Post Debridement Size (cm) - Depth 0.1 -Total Square Cm 0.12 -Wound/Ulcer Outcome Not Healed -Ulcer Cleansing Not Cleansed -Foul Odor after Cleansing No -Bioengineered Tissue No -Bleeding Controlled with NA -Treatment Response Procedure Tolerated Well #3 Right Lateral LE -Time 14:36 -Correct Patient Yes -Correct Side, Site, Position Yes -Correct Procedure Yes -Procedure Performed Yes -Type of Procedure Debridement -Clinical Debridement Subcutaneous -Post Debridement Size (cm) - Length 0.3 -Post Debridement Size (cm) - Width 0.3 -Post Debridement Size (cm) - Depth 0.1 -Total Square Cm 0.09 -Wound/Ulcer Outcome Not Healed -Ulcer Cleansing Not Cleansed -Foul Odor after Cleansing No -Bioengineered Tissue No -Bleeding Controlled with NA -Treatment Response Procedure Tolerated Well [See Physician Procedure note for Specifics] Pain Scale: 0-10 Numeric [Pain] -Is Patient Pain Free? No Musculoskeletal: No Tenderness to Palpation of Joints or Extremities Neurological: Neuro grossly intact Psych/Mental Status: Normal Affect, Appropriate Debridement Note Post-Debridement Measurements/Treatment WC - Nurse 2 - General Ulcer CM Notes Start: 01/22/18 14:02 Freq: Status: Active Protocol: Activity Type Activity Date Activity User E-Sign Co-Sign Detail Recorded Client Recorded Date Recorded By Document 01/22/18 14:34 [id number] 01/22/18 14:48 01/22/18 14:34 Wound Center Nurse 2 #4 RIGHT UPPER PERRY -Time 14:34 -Correct Patient Yes -Correct Side, Site, Position Yes -Correct Procedure Yes -Procedure Performed Yes -Type of Procedure Debridement -Clinical Debridement Subcutaneous -Post Debridement Size (cm) - Length 0.4 -Post Debridement Size (cm) - Width 0.3 -Post Debridement Size (cm) - Depth 0.1 -Total Square Cm 0.12 -Wound/Ulcer Outcome Not Healed -Ulcer Cleansing Not Cleansed -Foul Odor after Cleansing No -Bioengineered Tissue No -Bleeding Controlled with NA -Treatment Response Procedure Tolerated Well #3 Right Lateral LE -Time 14:36 -Correct Patient Yes -Correct Side, Site, Position Yes -Correct Procedure Yes -Procedure Performed Yes -Type of Procedure Debridement -Clinical Debridement Subcutaneous -Post Debridement Size (cm) - Length 0.3 -Post Debridement Size (cm) - Width 0.3 -Post Debridement Size (cm) - Depth 0.1 -Total Square Cm 0.09 -Wound/Ulcer Outcome Not Healed -Ulcer Cleansing Not Cleansed -Foul Odor after Cleansing No -Bioengineered Tissue No -Bleeding Controlled with NA -Treatment Response Procedure Tolerated Well Pain Scale: 0-10 Numeric Is Patient Pain Free? No Wound debrided: Right lower lateral leg Laterality: Right Type of Debridement: Excisional debridement Anesthesia Used: 4% Lidocaine Solution Depth: in the subcutaneous layer Percentage of wound debrided: 100 Instrument Used: 3mm curette Tissue Removed: Subcutaneous tissue and slough. 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 Open wound of right lower extremity. 2. Peripheral arterial disease. 3. Venous insufficiency of both lower extremities. 4. History of cellulitis right lower extremity. 5. Current use of long-term anticoagulation. Plan: Ms. Carter appears to be not very compliant with instructions. She states that she is using a gel as opposed to Inez which was prescribed because she is out of the Inez. Continue Inez with Adaptic over top. Change daily. Continue SurePress. Stressed the importance of wearing her compression. Suspect she is very noncompliant with wearing her compression. Strongly advised to elevate her lower extremities when sitting and in bed and avoid idle standing. Exercise also recommended. Compliance strongly encouraged. Increased protein intake/supplements also recommended. Follow-up here in 1 week. She was advised to call with any questions or concerns. This note was generated with [employer] dictation software. It may contain incorrect words, spelling, and punctuation that were not noted in checking the note before signing. Code Visit 111xxx-113xx: 34995 Nayeli subq tissue 20 sq cm/<
[2018-01-29 14:58] VITALS: BP 149/85; PULSE 84; RESP 18; TEMP 36
--- NOTE | 2018-01-31 09:30 | PCM.WC.PN ---
(1) Open wound of right lower extremity Status: Acute Current Visit: Yes Code(s): S81.801A - Unspecified open wound, right lower leg, initial encounter (2) Peripheral arterial disease Status: Chronic Current Visit: Yes Code(s): I73.9 - Peripheral vascular disease, unspecified (3) Venous insufficiency of both lower extremities Status: Chronic Current Visit: Yes Code(s): I87.2 - Venous insufficiency (chronic) (peripheral) (4) Current use of long term care pharmacist anticoagulation Status: Chronic Current Visit: Yes Code(s): Z79.01 - halfway (current) use of anticoagulants (5) History of cellulitis Status: Acute Current Visit: No Code(s): Z87.2 - Personal history of diseases of the skin and subcutaneous tissue Type of Wound Date of Service: 01/29/18 Chief Complaint: Traumatic wound, right lower extremity. History of Wound: Patient is a 42-year-old female who presented originally to the wound center on 12/13/2017 for nonhealing wound to her right lower extremity which she obtained after a fall. She had tried to manage it at home with antibiotic ointment and some other OTC wound care product without any significant improvement. She was then seen in [place] and diagnosed with cellulitis and had been placed on levofloxacin. On 01/11/2018 she had venous duplex ultrasound which showed the right great saphenous vein is incompetent below the knee, the left great saphenous vein is segmentally incompetent. On 01/11/18 she also had ABIs which showed right 1.14 and left 1.29. no DVT bilaterally found. Wound culture from 12/16/2017 showed Staphylococcus haemolyticus and Staphylococcus epidermidis. 12/21/2017 she ended up in the ED and admitted was given Vancomycin while admitted was started on clindamycin 12/20/2017 when she was discharged. She feels well otherwise and denies chills, nausea, vomiting. Progress of Wound: Improving. - Physical Exam Vital Signs Temp Pulse Resp BP 96.8 F L 84 18 149/85 H 01/29/18 14:58 01/29/18 14:58 01/29/18 14:58 01/29/18 14:58 General: Alert, Oriented x3 HEENT: Atraumatic Lungs: Normal air movement Cardiovascular: Regular rate Extremities: No Calf Tenderness, Edema, Peripheral Pulses Normal Skin: Ulcer/ Wound - Right lateral lower leg Wound Measurements and Assessment WC - Nurse 1 - General Ulcer Measurement Start: 01/22/18 14:02 Freq: Status: Active Protocol: Activity Type Activity Date Activity User E-Sign Co-Sign Detail Recorded Client Recorded Date Recorded By Document 01/29/18 14:58 DV [id number] 01/29/18 15:05 DV 01/29/18 14:58 Wound Center Nurse 1 [Ulcer Assessment] #4 RIGHT UPPER PERRY -Combined with other wound No -Current Size (cm) - Length 0.1 -Current Size (cm) - Width 0.1 -Current Size (cm) - Depth 0.1 -Total Square Cm 0.01 -Photo Taken No -Epithelialization Small 1-33% -Tunneling No -Undermining/Tunneling No -Circular Undermining No -Classification - Thickness Full Thickness without Exposed Support Structure -Exudate Amt None Present (0 %) -Wound Margin Flat & Intact -Granulation Amt None Present (0 %) -Granulation Quality N/A -Slough/Fibrin No -Necrosis Amt None Present (0 %) -Structure Exposed N/A -Texture (Meg-wound Skin Appearance) Assessed -Moisture (Meg-wound Skin Appearance No Abnormality ) Assessed -Color (Meg-wound Skin Appearance) No Abnormality Assessed -Temperature (Meg-wound Skin No Abnormality Appearance) (Pt Warm) -Tenderness on Palpation (Meg-wound No Skin Appearance) -Ulcer Cleansing Rinsed/ Irrigated with Saline -Foul Odor after Cleansing No #3 Right Lateral LE -Combined with other wound No -Current Size (cm) - Length 0.5 -Current Size (cm) - Width 0.5 -Current Size (cm) - Depth 0.1 -Total Square Cm 0.25 -Photo Taken No -Epithelialization Small 1-33% -Tunneling No -Undermining/Tunneling No -Circular Undermining No -Classification - Thickness Full Thickness without Exposed Support Structure -Exudate Amt None Present (0 %) -Wound Margin Distinct, Outline Attached -Granulation Amt None Present (0 %) -Granulation Quality N/A -Slough/Fibrin Yes -Necrosis Amt Large (67-100%) -Necrotic Tissue Type Adherent Slough -Structure Exposed Fascia Fat Layer Exposed -Texture (Meg-wound Skin Appearance) Assessed Localized Edema Scarring -Moisture (Meg-wound Skin Appearance Assessed ) Dry/Scaly -Color (Meg-wound Skin Appearance) Assessed Hemosiderin Staining -Temperature (Meg-wound Skin No Abnormality Appearance) (Pt Warm) -Tenderness on Palpation (Meg-wound No Skin Appearance) -Ulcer Cleansing Rinsed/ Irrigated with Saline -Foul Odor after Cleansing No -Anesthetic Used 4% Lidocaine Solution [Edema Assessment] -Lower Limb Edema Present Yes -Right Calf (cm) 34.2 -Right Ankle (cm) 60.0 - Nurse 2 - General Ulcer CM Notes Start: 01/22/18 14:02 Freq: Status: Active Protocol: Activity Type Activity Date Activity User E-Sign Co-Sign Detail Recorded Client Recorded Date Recorded By Document 01/29/18 15:36 [id number] 01/29/18 15:39 01/29/18 15:36 Wound Center Nurse 2 [Procedure/Treatment] #4 RIGHT UPPER PERRY -Correct Patient No -Correct Side, Site, Position No -Correct Procedure No -Procedure Performed No -Post Debridement Size (cm) - Length 0 -Post Debridement Size (cm) - Width 0 -Post Debridement Size (cm) - Depth 0 -Total Square Cm 0 -Wound/Ulcer Outcome Healed- Epithelialized #3 Right Lateral LE -Time 15:37 -Correct Patient Yes -Correct Side, Site, Position Yes -Correct Procedure Yes -Procedure Performed Yes -Type of Procedure Debridement -Clinical Debridement Subcutaneous -Post Debridement Size (cm) - Length 0.5 -Post Debridement Size (cm) - Width 0.4 -Post Debridement Size (cm) - Depth 0.1 -Total Square Cm 0.20 -Wound/Ulcer Outcome Not Healed -Ulcer Cleansing Rinsed/ Irrigated with Saline -Foul Odor after Cleansing No -Bleeding Controlled with Pressure -Treatment Response Procedure Tolerated Well [See Physician Procedure note for Specifics] Pain Scale: 0-10 Numeric [Pain] -Is Patient Pain Free? Yes Musculoskeletal: No Tenderness to Palpation of Joints or Extremities Neurological: Neuro grossly intact Psych/Mental Status: Normal Affect, Appropriate Debridement Note Post-Debridement Measurements/Treatment - Nurse 2 - General Ulcer CM Notes Start: 01/22/18 14:02 Freq: Status: Active Protocol: Activity Type Activity Date Activity User E-Sign Co-Sign Detail Recorded Client Recorded Date Recorded By Document 01/22/18 14:34 [id number] 01/22/18 14:48 Document 01/29/18 15:36 [id number] 01/29/18 15:39 01/22/18 01/29/18 14:34 15:36 Wound Center Nurse 2 #4 RIGHT UPPER PERRY -Time 14:34 -Correct Patient Yes No -Correct Side, Site, Position Yes No -Correct Procedure Yes No -Procedure Performed Yes No -Type of Procedure Debridement -Clinical Debridement Subcutaneous -Post Debridement Size (cm) - Length 0.4 0 -Post Debridement Size (cm) - Width 0.3 0 -Post Debridement Size (cm) - Depth 0.1 0 -Total Square Cm 0.12 0 -Wound/Ulcer Outcome Not Healed Healed- Epithelialized -Ulcer Cleansing Not Cleansed -Foul Odor after Cleansing No -Bioengineered Tissue No -Bleeding Controlled with NA -Treatment Response Procedure Tolerated Well #3 Right Lateral LE -Time 14:36 15:37 -Correct Patient Yes Yes -Correct Side, Site, Position Yes Yes -Correct Procedure Yes Yes -Procedure Performed Yes Yes -Type of Procedure Debridement Debridement -Clinical Debridement Subcutaneous Subcutaneous -Post Debridement Size (cm) - Length 0.3 0.5 -Post Debridement Size (cm) - Width 0.3 0.4 -Post Debridement Size (cm) - Depth 0.1 0.1 -Total Square Cm 0.09 0.20 -Wound/Ulcer Outcome Not Healed Not Healed -Ulcer Cleansing Not Cleansed Rinsed/ Irrigated with Saline -Foul Odor after Cleansing No No -Bioengineered Tissue No -Bleeding Controlled with NA Pressure -Treatment Response Procedure Procedure Tolerated Well Tolerated Well Pain Scale: 0-10 Numeric Is Patient Pain Free? No Yes Wound debrided: Right lateral lower extremity Laterality: Right Type of Debridement: Excisional debridement Anesthesia Used: 4% Lidocaine Solution Depth: Down to and including healthy tissue, in the subcutaneous layer Percentage of wound debrided: 100 Instrument Used: 3mm curette Tissue Removed: Subcutaneous tissue and slough. Severity: Fat Layer Exposed Amount of bleeding with debridement: Mild Bleeding Controlled with: Pressure Patient tolerated procedure well - Additional Wound Wound debrided: Right medial lower leg-healed- no debridement completed today. Laterality: Right Assessment/Plan Active Problems Peripheral arterial disease (Chronic) Open wound of right lower extremity (Acute) Current use of long term care pharmacist anticoagulation (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 Open wound of right lower extremity. 2. Peripheral arterial disease. 3. Venous insufficiency of both lower extremities. 4. History of cellulitis right lower extremity. 5. Current use of long-term anticoagulation. Plan: Ms. Carter appears to be not very compliant with instructions. Continue Inez daily to right lateral lower leg wound. Right medial lower leg wound healed. Refer to Dr. Busby for venous disease. Will try 3M double layer wrap on right lower leg. Will have her follow up in 2-3 days to change and see how she is handling. Stressed the importance of wearing her compression. Suspect she is very noncompliant with wearing her compression. Strongly advised to elevate her lower extremities when sitting and in bed and avoid idle standing. Exercise also recommended. Compliance strongly encouraged. Increased protein intake/supplements also recommended. Follow-up 2-3 days for a nurse visit. Follow up in 1 week. Code Visit [id number]: [id number] Nayeli subq tissue 20 sq cm/<
--- NOTE | 2018-01-31 09:36 | PN.PCM_ITS ---
(1) Open wound of right lower extremity Status: Acute Current Visit: Yes Code(s): S81.801A - Unspecified open wound, right lower leg, initial encounter (2) Peripheral arterial disease Status: Chronic Current Visit: Yes Code(s): I73.9 - Peripheral vascular disease, unspecified (3) Venous insufficiency of both lower extremities Status: Chronic Current Visit: Yes Code(s): I87.2 - Venous insufficiency (chronic) (peripheral) (4) Current use of exterminator anticoagulation Status: Chronic Current Visit: Yes Code(s): Z79.01 - longterm (current) use of anticoagulants (5) History of cellulitis Status: Acute Current Visit: No Code(s): Z87.2 - Personal history of diseases of the skin and subcutaneous tissue Type of Wound Date of Service: 01/29/18 Chief Complaint: Traumatic wound, right lower extremity. History of Wound: Patient is a 42-year-old female who presented originally to the wound center on 12/13/2017 for nonhealing wound to her right lower extremity which she obtained after a fall. She had tried to manage it at home with antibiotic ointment and some other OTC wound care product without any significant improvement. She was then seen in [place] and diagnosed with cellulitis and had been placed on levofloxacin. On 01/11/2018 she had venous duplex ultrasound which showed the right great saphenous vein is incompetent below the knee, the left great saphenous vein is segmentally incompetent. On 01/11/18 she also had ABIs which showed right 1.14 and left 1.29. no DVT bilaterally found. Wound culture from 12/16/2017 showed Staphylococcus haemolyticus and Staphylococcus epidermidis. 12/21/2017 she ended up in the ED and admitted was given Vancomycin while admitted was started on clindamycin 12/20/2017 when she was discharged. She feels well otherwise and denies chills, nausea, vomiting. Progress of Wound: Improving. - Physical Exam Vital Signs Temp Pulse Resp BP 96.8 F L 84 18 149/85 H 01/29/18 14:58 01/29/18 14:58 01/29/18 14:58 01/29/18 14:58 General: Alert, Oriented x3 HEENT: Atraumatic Lungs: Normal air movement Cardiovascular: Regular rate Extremities: No Calf Tenderness, Edema, Peripheral Pulses Normal Skin: Ulcer/ Wound - Right lateral lower leg Wound Measurements and Assessment WC - Nurse 1 - General Ulcer Measurement Start: 01/22/18 14:02 Freq: Status: Active Protocol: Activity Type Activity Date Activity User E-Sign Co-Sign Detail Recorded Client Recorded Date Recorded By Document 01/29/18 14:58 DV [id number] 01/29/18 15:05 DV 01/29/18 14:58 Wound Center Nurse 1 [Ulcer Assessment] #4 RIGHT UPPER PERRY -Combined with other wound No -Current Size (cm) - Length 0.1 -Current Size (cm) - Width 0.1 -Current Size (cm) - Depth 0.1 -Total Square Cm 0.01 -Photo Taken No -Epithelialization Small 1-33% -Tunneling No -Undermining/Tunneling No -Circular Undermining No -Classification - Thickness Full Thickness without Exposed Support Structure -Exudate Amt None Present (0 %) -Wound Margin Flat & Intact -Granulation Amt None Present (0 %) -Granulation Quality N/A -Slough/Fibrin No -Necrosis Amt None Present (0 %) -Structure Exposed N/A -Texture (Meg-wound Skin Appearance) Assessed -Moisture (Meg-wound Skin Appearance No Abnormality ) Assessed -Color (Meg-wound Skin Appearance) No Abnormality Assessed -Temperature (Meg-wound Skin No Abnormality Appearance) (Pt Warm) -Tenderness on Palpation (Meg-wound No Skin Appearance) -Ulcer Cleansing Rinsed/ Irrigated with Saline -Foul Odor after Cleansing No #3 Right Lateral LE -Combined with other wound No -Current Size (cm) - Length 0.5 -Current Size (cm) - Width 0.5 -Current Size (cm) - Depth 0.1 -Total Square Cm 0.25 -Photo Taken No -Epithelialization Small 1-33% -Tunneling No -Undermining/Tunneling No -Circular Undermining No -Classification - Thickness Full Thickness without Exposed Support Structure -Exudate Amt None Present (0 %) -Wound Margin Distinct, Outline Attached -Granulation Amt None Present (0 %) -Granulation Quality N/A -Slough/Fibrin Yes -Necrosis Amt Large (67-100%) -Necrotic Tissue Type Adherent Slough -Structure Exposed Fascia Fat Layer Exposed -Texture (Meg-wound Skin Appearance) Assessed Localized Edema Scarring -Moisture (Meg-wound Skin Appearance Assessed ) Dry/Scaly -Color (Meg-wound Skin Appearance) Assessed Hemosiderin Staining -Temperature (Meg-wound Skin No Abnormality Appearance) (Pt Warm) -Tenderness on Palpation (Meg-wound No Skin Appearance) -Ulcer Cleansing Rinsed/ Irrigated with Saline -Foul Odor after Cleansing No -Anesthetic Used 4% Lidocaine Solution [Edema Assessment] -Lower Limb Edema Present Yes -Right Calf (cm) 34.2 -Right Ankle (cm) 60.0 - Nurse 2 - General Ulcer CM Notes Start: 01/22/18 14:02 Freq: Status: Active Protocol: Activity Type Activity Date Activity User E-Sign Co-Sign Detail Recorded Client Recorded Date Recorded By Document 01/29/18 15:36 [id number] 01/29/18 15:39 01/29/18 15:36 Wound Center Nurse 2 [Procedure/Treatment] #4 RIGHT UPPER PERRY -Correct Patient No -Correct Side, Site, Position No -Correct Procedure No -Procedure Performed No -Post Debridement Size (cm) - Length 0 -Post Debridement Size (cm) - Width 0 -Post Debridement Size (cm) - Depth 0 -Total Square Cm 0 -Wound/Ulcer Outcome Healed- Epithelialized #3 Right Lateral LE -Time 15:37 -Correct Patient Yes -Correct Side, Site, Position Yes -Correct Procedure Yes -Procedure Performed Yes -Type of Procedure Debridement -Clinical Debridement Subcutaneous -Post Debridement Size (cm) - Length 0.5 -Post Debridement Size (cm) - Width 0.4 -Post Debridement Size (cm) - Depth 0.1 -Total Square Cm 0.20 -Wound/Ulcer Outcome Not Healed -Ulcer Cleansing Rinsed/ Irrigated with Saline -Foul Odor after Cleansing No -Bleeding Controlled with Pressure -Treatment Response Procedure Tolerated Well [See Physician Procedure note for Specifics] Pain Scale: 0-10 Numeric [Pain] -Is Patient Pain Free? Yes Musculoskeletal: No Tenderness to Palpation of Joints or Extremities Neurological: Neuro grossly intact Psych/Mental Status: Normal Affect, Appropriate Debridement Note Post-Debridement Measurements/Treatment - Nurse 2 - General Ulcer CM Notes Start: 01/22/18 14:02 Freq: Status: Active Protocol: Activity Type Activity Date Activity User E-Sign Co-Sign Detail Recorded Client Recorded Date Recorded By Document 01/22/18 14:34 [id number] 01/22/18 14:48 Document 01/29/18 15:36 [id number] 01/29/18 15:39 01/22/18 01/29/18 14:34 15:36 Wound Center Nurse 2 #4 RIGHT UPPER PERRY -Time 14:34 -Correct Patient Yes No -Correct Side, Site, Position Yes No -Correct Procedure Yes No -Procedure Performed Yes No -Type of Procedure Debridement -Clinical Debridement Subcutaneous -Post Debridement Size (cm) - Length 0.4 0 -Post Debridement Size (cm) - Width 0.3 0 -Post Debridement Size (cm) - Depth 0.1 0 -Total Square Cm 0.12 0 -Wound/Ulcer Outcome Not Healed Healed- Epithelialized -Ulcer Cleansing Not Cleansed -Foul Odor after Cleansing No -Bioengineered Tissue No -Bleeding Controlled with NA -Treatment Response Procedure Tolerated Well #3 Right Lateral LE -Time 14:36 15:37 -Correct Patient Yes Yes -Correct Side, Site, Position Yes Yes -Correct Procedure Yes Yes -Procedure Performed Yes Yes -Type of Procedure Debridement Debridement -Clinical Debridement Subcutaneous Subcutaneous -Post Debridement Size (cm) - Length 0.3 0.5 -Post Debridement Size (cm) - Width 0.3 0.4 -Post Debridement Size (cm) - Depth 0.1 0.1 -Total Square Cm 0.09 0.20 -Wound/Ulcer Outcome Not Healed Not Healed -Ulcer Cleansing Not Cleansed Rinsed/ Irrigated with Saline -Foul Odor after Cleansing No No -Bioengineered Tissue No -Bleeding Controlled with NA Pressure -Treatment Response Procedure Procedure Tolerated Well Tolerated Well Pain Scale: 0-10 Numeric Is Patient Pain Free? No Yes Wound debrided: Right lateral lower extremity Laterality: Right Type of Debridement: Excisional debridement Anesthesia Used: 4% Lidocaine Solution Depth: Down to and including healthy tissue, in the subcutaneous layer Percentage of wound debrided: 100 Instrument Used: 3mm curette Tissue Removed: Subcutaneous tissue and slough. Severity: Fat Layer Exposed Amount of bleeding with debridement: Mild Bleeding Controlled with: Pressure Patient tolerated procedure well - Additional Wound Wound debrided: Right medial lower leg-healed- no debridement completed today. Laterality: Right Assessment/Plan Active Problems Peripheral arterial disease (Chronic) Open wound of right lower extremity (Acute) Current use of exterminator anticoagulation (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 Open wound of right lower extremity. 2. Peripheral arterial disease. 3. Venous insufficiency of both lower extremities. 4. History of cellulitis right lower extremity. 5. Current use of long-term anticoagulation. Plan: Ms. Carter appears to be not very compliant with instructions. Continue Inez daily to right lateral lower leg wound. Right medial lower leg wound healed. Refer to Dr. Busby for venous disease. Will try 3M double layer wrap on right lower leg. Will have her follow up in 2-3 days to change and see how she is handling. Stressed the importance of wearing her compression. Suspect she is very noncompliant with wearing her compression. Strongly advised to elevate her lower extremities when sitting and in bed and avoid idle standing. Exercise also recommended. Compliance strongly encouraged. Increased protein intake/supplements also recommended. Follow-up 2-3 days for a nurse visit. Follow up in 1 week. Code Visit 111xxx-[id number]: [id number] Nayeli subq tissue 20 sq cm/<
--- NOTE | 2018-02-05 16:27 | PCM.WC.PN ---
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 History of Wound: Patient is a 42-year-old female who presented originally to the wound center on 12/13/2017 for nonhealing wound to her right lower extremity which she obtained after a fall. She had tried to manage it at home with antibiotic ointment and some other OTC wound care product without any significant improvement. She was then seen in [place] and diagnosed with cellulitis and had been placed on levofloxacin. On 01/11/2018 she had venous duplex ultrasound which showed the right great saphenous vein is incompetent below the knee, the left great saphenous vein is segmentally incompetent. On 01/11/18 she also had ABIs which showed right 1.14 and left 1.29. no DVT bilaterally found. Wound culture from 12/16/2017 showed Staphylococcus haemolyticus and Staphylococcus epidermidis. 12/21/2017 she ended up in the ED and admitted was given Vancomycin while admitted was started on clindamycin 12/20/2017 when she was discharged. She feels well otherwise and denies chills, nausea, vomiting. Progress of Wound: Improving. - Physical Exam Vital Signs Temp Pulse Resp BP 96.8 F L 84 18 149/85 H 01/29/18 14:58 01/29/18 14:58 01/29/18 14:58 01/29/18 14:58 General: Alert, Oriented x3 HEENT: Atraumatic Extremities: Diminished Peripheral Pulses, Edema, Tenderness Skin: Ulcer/ Wound - Right lower lateral leg. Wound Measurements and Assessment WC - Nurse 2 - General Ulcer CM Notes Start: 01/22/18 14:02 Freq: Status: Active Protocol: Activity Type Activity Date Activity User E-Sign Co-Sign Detail Recorded Client Recorded Date Recorded By Document 02/05/18 15:07 [id number] 02/05/18 15:11 02/05/18 15:07 Wound Center Nurse 2 [Procedure/Treatment] #3 Right Lateral LE -Time 15:09 -Correct Patient Yes -Correct Side, Site, Position Yes -Correct Procedure Yes -Procedure Performed Yes -Type of Procedure Debridement -Clinical Debridement Subcutaneous -Post Debridement Size (cm) - Length 0.3 -Post Debridement Size (cm) - Width 0.4 -Post Debridement Size (cm) - Depth 0.1 -Total Square Cm 0.12 -Wound/Ulcer Outcome Not Healed -Ulcer Cleansing Rinsed/ Irrigated with Saline -Foul Odor after Cleansing No -Bioengineered Tissue No -Bleeding Controlled with Pressure -Treatment Response Procedure Tolerated Well [See Physician Procedure note for Specifics] Pain Scale: 0-10 Numeric [Pain] -Is Patient Pain Free? Yes Musculoskeletal: No Tenderness to Palpation of Joints or Extremities Neurological: Neuro grossly intact Psych/Mental Status: Normal Affect, Appropriate Debridement Note Post-Debridement Measurements/Treatment - Nurse 2 - General Ulcer CM Notes Start: 01/22/18 14:02 Freq: Status: Active Protocol: Activity Type Activity Date Activity User E-Sign Co-Sign Detail Recorded Client Recorded Date Recorded By Document 01/22/18 14:34 [id number] 01/22/18 14:48 Document 01/29/18 15:36 [id number] 01/29/18 15:39 Document 02/05/18 15:07 [id number] 02/05/18 15:11 01/22/18 01/29/18 02/05/18 14:34 15:36 15:07 Wound Center Nurse 2 #4 RIGHT UPPER PERRY -Time 14:34 -Correct Patient Yes No -Correct Side, Site, Position Yes No -Correct Procedure Yes No -Procedure Performed Yes No -Type of Procedure Debridement -Clinical Debridement Subcutaneous -Post Debridement Size (cm) - Length 0.4 0 -Post Debridement Size (cm) - Width 0.3 0 -Post Debridement Size (cm) - Depth 0.1 0 -Total Square Cm 0.12 0 -Wound/Ulcer Outcome Not Healed Healed- Epithelialized -Ulcer Cleansing Not Cleansed -Foul Odor after Cleansing No -Bioengineered Tissue No -Bleeding Controlled with NA -Treatment Response Procedure Tolerated Well #3 Right Lateral LE -Time 14:36 15:37 15:09 -Correct Patient Yes Yes Yes -Correct Side, Site, Position Yes Yes Yes -Correct Procedure Yes Yes Yes -Procedure Performed Yes Yes Yes -Type of Procedure Debridement Debridement Debridement -Clinical Debridement Subcutaneous Subcutaneous Subcutaneous -Post Debridement Size (cm) - Length 0.3 0.5 0.3 -Post Debridement Size (cm) - Width 0.3 0.4 0.4 -Post Debridement Size (cm) - Depth 0.1 0.1 0.1 -Total Square Cm 0.09 0.20 0.12 -Wound/Ulcer Outcome Not Healed Not Healed Not Healed -Ulcer Cleansing Not Cleansed Rinsed/ Rinsed/ Irrigated with Irrigated with Saline Saline -Foul Odor after Cleansing No No No -Bioengineered Tissue No No -Bleeding Controlled with NA Pressure Pressure -Treatment Response Procedure Procedure Procedure Tolerated Well Tolerated Well Tolerated Well Pain Scale: 0-10 Numeric Is Patient Pain Free? No Yes Yes Wound debrided: Right lower lateral leg Laterality: Right Type of Debridement: Excisional debridement Anesthesia Used: 4% Lidocaine Solution Depth: Down to and including healthy tissue, in the subcutaneous layer Percentage of wound debrided: 100 Instrument Used: 3mm curette Tissue Removed: Slough Severity: Limited To Skin Breakdown Amount of bleeding with debridement: Mild Bleeding Controlled with: Pressure Patient tolerated procedure well Removed scabbed area, wound is almost healed. Assessment/Plan Active Problems Peripheral arterial disease (Chronic) Open wound of right lower extremity (Acute) Current use of halfway anticoagulation (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 Open wound of right lower extremity. 2. Peripheral arterial disease. 3. Venous insufficiency of both lower extremities. 4. History of cellulitis right lower extremity. 5. Current use of long-term anticoagulation. Plan: Ms. Carter appears to be not very compliant with instructions. Will stop Inez and stoart collagen hydrogel to opened area. Right medial lower leg wound healed. Refer to Dr. Busby for venous disease. She still has not heard from them, we will call to see if we can make an appointment. Concerned that they may not take her insurance. She did not tolerated the 3M double layer wrap on right lower leg last week. She removed it the next day due to the discomfort. Will order circaid to right leg. Left leg she can get Compression stockings 20-30 at [employer]. Stressed the importance of wearing her compression. Suspect she is very noncompliant with wearing her compression. Strongly advised to elevate her lower extremities when sitting and in bed and avoid idle standing. Exercise also recommended. Compliance strongly encouraged. Increased protein intake/supplements also recommended. Follow up in 1 week. Code Visit 111xxx-113xx: [id number] Nayeli subq tissue 20 sq cm/<
--- NOTE | 2018-02-07 09:34 | PN.PCM_ITS ---
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 History of Wound: Patient is a 42-year-old female who presented originally to the wound center on 12/13/2017 for nonhealing wound to her right lower extremity which she obtained after a fall. She had tried to manage it at home with antibiotic ointment and some other OTC wound care product without any significant improvement. She was then seen in [place] and diagnosed with cellulitis and had been placed on levofloxacin. On 01/11/2018 she had venous duplex ultrasound which showed the right great saphenous vein is incompetent below the knee, the left great saphenous vein is segmentally incompetent. On 01/11/18 she also had ABIs which showed right 1.14 and left 1.29. no DVT bilaterally found. Wound culture from 12/16/2017 showed Staphylococcus haemolyticus and Staphylococcus epidermidis. 12/21/2017 she ended up in the ED and admitted was given Vancomycin while admitted was started on clindamycin 12/20/2017 when she was discharged. She feels well otherwise and denies chills, nausea, vomiting. Progress of Wound: Improving. - Physical Exam Vital Signs Temp Pulse Resp BP 96.8 F L 84 18 149/85 H 01/29/18 14:58 01/29/18 14:58 01/29/18 14:58 01/29/18 14:58 General: Alert, Oriented x3 HEENT: Atraumatic Extremities: Diminished Peripheral Pulses, Edema, Tenderness Skin: Ulcer/ Wound - Right lower lateral leg. Wound Measurements and Assessment WC - Nurse 2 - General Ulcer CM Notes Start: 01/22/18 14:02 Freq: Status: Active Protocol: Activity Type Activity Date Activity User E-Sign Co-Sign Detail Recorded Client Recorded Date Recorded By Document 02/05/18 15:07 [id number] 02/05/18 15:11 02/05/18 15:07 Wound Center Nurse 2 [Procedure/Treatment] #3 Right Lateral LE -Time 15:09 -Correct Patient Yes -Correct Side, Site, Position Yes -Correct Procedure Yes -Procedure Performed Yes -Type of Procedure Debridement -Clinical Debridement Subcutaneous -Post Debridement Size (cm) - Length 0.3 -Post Debridement Size (cm) - Width 0.4 -Post Debridement Size (cm) - Depth 0.1 -Total Square Cm 0.12 -Wound/Ulcer Outcome Not Healed -Ulcer Cleansing Rinsed/ Irrigated with Saline -Foul Odor after Cleansing No -Bioengineered Tissue No -Bleeding Controlled with Pressure -Treatment Response Procedure Tolerated Well [See Physician Procedure note for Specifics] Pain Scale: 0-10 Numeric [Pain] -Is Patient Pain Free? Yes Musculoskeletal: No Tenderness to Palpation of Joints or Extremities Neurological: Neuro grossly intact Psych/Mental Status: Normal Affect, Appropriate Debridement Note Post-Debridement Measurements/Treatment - Nurse 2 - General Ulcer CM Notes Start: 01/22/18 14:02 Freq: Status: Active Protocol: Activity Type Activity Date Activity User E-Sign Co-Sign Detail Recorded Client Recorded Date Recorded By Document 01/22/18 14:34 [id number] 01/22/18 14:48 Document 01/29/18 15:36 [id number] 01/29/18 15:39 Document 02/05/18 15:07 [id number] 02/05/18 15:11 01/22/18 01/29/18 02/05/18 14:34 15:36 15:07 Wound Center Nurse 2 #4 RIGHT UPPER PERRY -Time 14:34 -Correct Patient Yes No -Correct Side, Site, Position Yes No -Correct Procedure Yes No -Procedure Performed Yes No -Type of Procedure Debridement -Clinical Debridement Subcutaneous -Post Debridement Size (cm) - Length 0.4 0 -Post Debridement Size (cm) - Width 0.3 0 -Post Debridement Size (cm) - Depth 0.1 0 -Total Square Cm 0.12 0 -Wound/Ulcer Outcome Not Healed Healed- Epithelialized -Ulcer Cleansing Not Cleansed -Foul Odor after Cleansing No -Bioengineered Tissue No -Bleeding Controlled with NA -Treatment Response Procedure Tolerated Well #3 Right Lateral LE -Time 14:36 15:37 15:09 -Correct Patient Yes Yes Yes -Correct Side, Site, Position Yes Yes Yes -Correct Procedure Yes Yes Yes -Procedure Performed Yes Yes Yes -Type of Procedure Debridement Debridement Debridement -Clinical Debridement Subcutaneous Subcutaneous Subcutaneous -Post Debridement Size (cm) - Length 0.3 0.5 0.3 -Post Debridement Size (cm) - Width 0.3 0.4 0.4 -Post Debridement Size (cm) - Depth 0.1 0.1 0.1 -Total Square Cm 0.09 0.20 0.12 -Wound/Ulcer Outcome Not Healed Not Healed Not Healed -Ulcer Cleansing Not Cleansed Rinsed/ Rinsed/ Irrigated with Irrigated with Saline Saline -Foul Odor after Cleansing No No No -Bioengineered Tissue No No -Bleeding Controlled with NA Pressure Pressure -Treatment Response Procedure Procedure Procedure Tolerated Well Tolerated Well Tolerated Well Pain Scale: 0-10 Numeric Is Patient Pain Free? No Yes Yes Wound debrided: Right lower lateral leg Laterality: Right Type of Debridement: Excisional debridement Anesthesia Used: 4% Lidocaine Solution Depth: Down to and including healthy tissue, in the subcutaneous layer Percentage of wound debrided: 100 Instrument Used: 3mm curette Tissue Removed: Slough Severity: Limited To Skin Breakdown Amount of bleeding with debridement: Mild Bleeding Controlled with: Pressure Patient tolerated procedure well Removed scabbed area, wound is almost healed. Assessment/Plan Active Problems Peripheral arterial disease (Chronic) Open wound of right lower extremity (Acute) Current use of nursing home anticoagulation (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 Open wound of right lower extremity. 2. Peripheral arterial disease. 3. Venous insufficiency of both lower extremities. 4. History of cellulitis right lower extremity. 5. Current use of long-term anticoagulation. Plan: Ms. Carter appears to be not very compliant with instructions. Will stop Inez and stoart collagen hydrogel to opened area. Right medial lower leg wound healed. Refer to Dr. Busby for venous disease. She still has not heard from them, we will call to see if we can make an appointment. Concerned that they may not take her insurance. She did not tolerated the 3M double layer wrap on right lower leg last week. She removed it the next day due to the discomfort. Will order circaid to right leg. Left leg she can get Compression stockings 20- 30 at [employer]. Stressed the importance of wearing her compression. Suspect she is very noncompliant with wearing her compression. Strongly advised to elevate her lower extremities when sitting and in bed and avoid idle standing. Exercise also recommended. Compliance strongly encouraged. Increased protein intake/supplements also recommended. Follow up in 1 week. Code Visit 111xxx-113xx: [id number] Nayeli subq tissue 20 sq cm/<
[2018-02-12 15:02] VITALS: BP 146/82; PULSE 76; RESP 22; TEMP 36.2
--- NOTE | 2018-02-12 16:53 | PCM.WC.PN ---
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 History of Wound: Patient is a 42-year-old female who presented originally to the wound center on 12/13/2017 for nonhealing wound to her right lower extremity which she obtained after a fall. She had tried to manage it at home with antibiotic ointment and some other OTC wound care product without any significant improvement. She was then seen in [place] and diagnosed with cellulitis and had been placed on levofloxacin. On 01/11/2018 she had venous duplex ultrasound which showed the right great saphenous vein is incompetent below the knee, the left great saphenous vein is segmentally incompetent. On 01/11/18 she also had ABIs which showed right 1.14 and left 1.29. no DVT bilaterally found. Wound culture from 12/16/2017 showed Staphylococcus haemolyticus and Staphylococcus epidermidis. 12/21/2017 she ended up in the ED and admitted was given Vancomycin while admitted was started on clindamycin 12/20/2017 when she was discharged. She feels well otherwise and denies chills, nausea, vomiting. Progress of Wound: Improving. - Physical Exam Vital Signs Temp Pulse Resp BP 97.2 F L 76 22 H 146/82 H 02/12/18 15:02 02/12/18 15:02 02/12/18 15:02 02/12/18 15:02 General: Alert, Oriented x3 HEENT: Atraumatic Cardiovascular: Regular rate Extremities: Capillary Refill Less than 3 Seconds, Diminished Peripheral Pulses, Edema Skin: Ulcer/ Wound - Right lower lateral leg wound- it is almost healed Wound Measurements and Assessment WC - Nurse 1 - General Ulcer Measurement Start: 01/22/18 14:02 Freq: Status: Active Protocol: Activity Type Activity Date Activity User E-Sign Co-Sign Detail Recorded Client Recorded Date Recorded By Document 02/12/18 15:02 DL [id number] 02/12/18 15:12 DL 02/12/18 15:02 Wound Center Nurse 1 [Ulcer Assessment] #3 Right Lateral LE -Current Size (cm) - Length 0.1 -Current Size (cm) - Width 0.1 -Current Size (cm) - Depth 0.1 -Total Square Cm 0.01 -Photo Taken No -Exudate Amt None Present (0 %) -Wound Margin Flat & Intact -Granulation Amt Large (67-100%) -Granulation Quality [place] -Necrosis Amt Small (1-33%) -Necrotic Tissue Type Adherent Slough -Structure Exposed N/A -Texture (Meg-wound Skin Appearance) Scarring -Moisture (Meg-wound Skin Appearance No Abnormality ) -Color (Meg-wound Skin Appearance) Hemosiderin Staining -Temperature (Meg-wound Skin No Abnormality Appearance) (Pt Warm) -Ulcer Cleansing Rinsed/ Irrigated with Saline -Foul Odor after Cleansing No -Anesthetic Used 4% Lidocaine Solution [Edema Assessment] -Right Calf (cm) 59 -Right Ankle (cm) 32.2 - Nurse 2 - General Ulcer CM Notes Start: 01/22/18 14:02 Freq: Status: Active Protocol: Activity Type Activity Date Activity User E-Sign Co-Sign Detail Recorded Client Recorded Date Recorded By Document 02/12/18 16:17 [email or web address] [id number] 02/12/18 16:18 02/12/18 16:17 Wound Center Nurse 2 [Procedure/Treatment] #3 Right Lateral LE -Time 16:18 -Correct Patient Yes -Correct Side, Site, Position Yes -Correct Procedure Yes -Procedure Performed Yes -Type of Procedure Debridement -Clinical Debridement Subcutaneous -Post Debridement Size (cm) - Length 0.5 -Post Debridement Size (cm) - Width 0.5 -Post Debridement Size (cm) - Depth 0.1 -Total Square Cm 0.25 -Wound/Ulcer Outcome Not Healed -Ulcer Cleansing Rinsed/ Irrigated with Saline -Foul Odor after Cleansing No -Bioengineered Tissue No -Bleeding Controlled with Pressure -Treatment Response Procedure Tolerated Well [See Physician Procedure note for Specifics] Pain Scale: 0-10 Numeric [Pain] -Is Patient Pain Free? Yes Musculoskeletal: No Tenderness to Palpation of Joints or Extremities Neurological: Neuro grossly intact Psych/Mental Status: Normal Affect, Appropriate Debridement Note Post-Debridement Measurements/Treatment WC - Nurse 2 - General Ulcer CM Notes Start: 01/22/18 14:02 Freq: Status: Active Protocol: Activity Type Activity Date Activity User E-Sign Co-Sign Detail Recorded Client Recorded Date Recorded By Document 01/22/18 14:34 CS [id number] 01/22/18 14:48 CS Document 01/29/18 15:36 JF [id number] 01/29/18 15:39 JF Document 02/05/18 15:07 JF [id number] 02/05/18 15:11 JF Document 02/12/18 16:17 JF [id number] 02/12/18 16:18 JF 01/22/18 01/29/18 02/05/18 14:34 15:36 15:07 Wound Center Nurse 2 #4 RIGHT UPPER PERRY -Time 14:34 -Correct Patient Yes No -Correct Side, Site, Position Yes No -Correct Procedure Yes No -Procedure Performed Yes No -Type of Procedure Debridement -Clinical Debridement Subcutaneous -Post Debridement Size (cm) - Length 0.4 0 -Post Debridement Size (cm) - Width 0.3 0 -Post Debridement Size (cm) - Depth 0.1 0 -Total Square Cm 0.12 0 -Wound/Ulcer Outcome Not Healed Healed- Epithelialized -Ulcer Cleansing Not Cleansed -Foul Odor after Cleansing No -Bioengineered Tissue No -Bleeding Controlled with NA -Treatment Response Procedure Tolerated Well #3 Right Lateral LE -Time 14:36 15:37 15:09 -Correct Patient Yes Yes Yes -Correct Side, Site, Position Yes Yes Yes -Correct Procedure Yes Yes Yes -Procedure Performed Yes Yes Yes -Type of Procedure Debridement Debridement Debridement -Clinical Debridement Subcutaneous Subcutaneous Subcutaneous -Post Debridement Size (cm) - Length 0.3 0.5 0.3 -Post Debridement Size (cm) - Width 0.3 0.4 0.4 -Post Debridement Size (cm) - Depth 0.1 0.1 0.1 -Total Square Cm 0.09 0.20 0.12 -Wound/Ulcer Outcome Not Healed Not Healed Not Healed -Ulcer Cleansing Not Cleansed Rinsed/ Rinsed/ Irrigated with Irrigated with Saline Saline -Foul Odor after Cleansing No No No -Bioengineered Tissue No No -Bleeding Controlled with NA Pressure Pressure -Treatment Response Procedure Procedure Procedure Tolerated Well Tolerated Well Tolerated Well Pain Scale: 0-10 Numeric Is Patient Pain Free? No Yes Yes 02/12/18 16:17 Wound Center Nurse 2 #4 RIGHT UPPER PERRY -Time -Correct Patient -Correct Side, Site, Position -Correct Procedure -Procedure Performed -Type of Procedure -Clinical Debridement -Post Debridement Size (cm) - Length -Post Debridement Size (cm) - Width -Post Debridement Size (cm) - Depth -Total Square Cm -Wound/Ulcer Outcome -Ulcer Cleansing -Foul Odor after Cleansing -Bioengineered Tissue -Bleeding Controlled with -Treatment Response #3 Right Lateral LE -Time 16:18 -Correct Patient Yes -Correct Side, Site, Position Yes -Correct Procedure Yes -Procedure Performed Yes -Type of Procedure Debridement -Clinical Debridement Subcutaneous -Post Debridement Size (cm) - Length 0.5 -Post Debridement Size (cm) - Width 0.5 -Post Debridement Size (cm) - Depth 0.1 -Total Square Cm 0.25 -Wound/Ulcer Outcome Not Healed -Ulcer Cleansing Rinsed/ Irrigated with Saline -Foul Odor after Cleansing No -Bioengineered Tissue No -Bleeding Controlled with Pressure -Treatment Response Procedure Tolerated Well Pain Scale: 0-10 Numeric Is Patient Pain Free? Yes Wound debrided: Right lower lateral leg Laterality: Right Type of Debridement: Excisional debridement Anesthesia Used: 4% Lidocaine Solution Depth: Down to and including healthy tissue, in the subcutaneous layer Percentage of wound debrided: 100 Instrument Used: - - #1 curette Tissue Removed: Slough and bioderm Severity: Limited To Skin Breakdown Amount of bleeding with debridement: Mild Bleeding Controlled with: Pressure Patient tolerated procedure well Assessment/Plan Active Problems Peripheral arterial disease (Chronic) Open wound of right lower extremity (Acute) Current use of fdc anticoagulation (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 Open wound of right lower extremity. 2. Peripheral arterial disease. 3. Venous insufficiency of both lower extremities. 4. History of cellulitis right lower extremity. 5. Current use of long-term anticoagulation. Plan: Ms. Carter appears to be not very compliant with instructions. Will continue collagen hydrogel to opened area. Right medial lower leg wound healed. Refer to Dr. Busby for venous disease. She still has not heard from them, we will call to see if we can make an appointment and have given her their number so she can alsoe persue this. Will order circaid to right leg with a different company since the one does not take her insurance. Instructed her to let us know when she receives her Circaid and she can come in for a nurses visit to learn how the proper application. Left leg she can get Compression stockings 20-30 at [employer], which she has not gotten because she does not have any money. Stressed the importance of wearing her compression. Suspect she is very noncompliant with wearing her compression. Strongly advised to elevate her lower extremities when sitting and in bed and avoid idle standing. Exercise also recommended. Compliance strongly encouraged. Increased protein intake/supplements also recommended. Follow up in 2 weeks. Code Visit 111xxx-113xx: [id number] Nayeli subq tissue 20 sq cm/<
--- NOTE | 2018-02-14 11:57 | PN.PCM_ITS ---
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 History of Wound: Patient is a 42-year-old female who presented originally to the wound center on 12/13/2017 for nonhealing wound to her right lower extremity which she obtained after a fall. She had tried to manage it at home with antibiotic ointment and some other OTC wound care product without any significant improvement. She was then seen in [place] and diagnosed with cellulitis and had been placed on levofloxacin. On 01/11/2018 she had venous duplex ultrasound which showed the right great saphenous vein is incompetent below the knee, the left great saphenous vein is segmentally incompetent. On 01/11/18 she also had ABIs which showed right 1.14 and left 1.29. no DVT bilaterally found. Wound culture from 12/16/2017 showed Staphylococcus haemolyticus and Staphylococcus epidermidis. 12/21/2017 she ended up in the ED and admitted was given Vancomycin while admitted was started on clindamycin 12/20/2017 when she was discharged. She feels well otherwise and denies chills, nausea, vomiting. Progress of Wound: Improving. - Physical Exam Vital Signs Temp Pulse Resp BP 97.2 F L 76 22 H 146/82 H 02/12/18 15:02 02/12/18 15:02 02/12/18 15:02 02/12/18 15:02 General: Alert, Oriented x3 HEENT: Atraumatic Cardiovascular: Regular rate Extremities: Capillary Refill Less than 3 Seconds, Diminished Peripheral Pulses, Edema Skin: Ulcer/ Wound - Right lower lateral leg wound- it is almost healed Wound Measurements and Assessment WC - Nurse 1 - General Ulcer Measurement Start: 01/22/18 14:02 Freq: Status: Active Protocol: Activity Type Activity Date Activity User E-Sign Co-Sign Detail Recorded Client Recorded Date Recorded By Document 02/12/18 15:02 DL [id number] 02/12/18 15:12 DL 02/12/18 15:02 Wound Center Nurse 1 [Ulcer Assessment] #3 Right Lateral LE -Current Size (cm) - Length 0.1 -Current Size (cm) - Width 0.1 -Current Size (cm) - Depth 0.1 -Total Square Cm 0.01 -Photo Taken No -Exudate Amt None Present (0 %) -Wound Margin Flat & Intact -Granulation Amt Large (67-100%) -Granulation Quality [place] -Necrosis Amt Small (1-33%) -Necrotic Tissue Type Adherent Slough -Structure Exposed N/A -Texture (Meg-wound Skin Appearance) Scarring -Moisture (Meg-wound Skin Appearance No Abnormality ) -Color (Meg-wound Skin Appearance) Hemosiderin Staining -Temperature (Meg-wound Skin No Abnormality Appearance) (Pt Warm) -Ulcer Cleansing Rinsed/ Irrigated with Saline -Foul Odor after Cleansing No -Anesthetic Used 4% Lidocaine Solution [Edema Assessment] -Right Calf (cm) 59 -Right Ankle (cm) 32.2 - Nurse 2 - General Ulcer CM Notes Start: 01/22/18 14:02 Freq: Status: Active Protocol: Activity Type Activity Date Activity User E-Sign Co-Sign Detail Recorded Client Recorded Date Recorded By Document 02/12/18 16:17 MELINDA [id number] 02/12/18 16:18 02/12/18 16:17 Wound Center Nurse 2 [Procedure/Treatment] #3 Right Lateral LE -Time 16:18 -Correct Patient Yes -Correct Side, Site, Position Yes -Correct Procedure Yes -Procedure Performed Yes -Type of Procedure Debridement -Clinical Debridement Subcutaneous -Post Debridement Size (cm) - Length 0.5 -Post Debridement Size (cm) - Width 0.5 -Post Debridement Size (cm) - Depth 0.1 -Total Square Cm 0.25 -Wound/Ulcer Outcome Not Healed -Ulcer Cleansing Rinsed/ Irrigated with Saline -Foul Odor after Cleansing No -Bioengineered Tissue No -Bleeding Controlled with Pressure -Treatment Response Procedure Tolerated Well [See Physician Procedure note for Specifics] Pain Scale: 0-10 Numeric [Pain] -Is Patient Pain Free? Yes Musculoskeletal: No Tenderness to Palpation of Joints or Extremities Neurological: Neuro grossly intact Psych/Mental Status: Normal Affect, Appropriate Debridement Note Post-Debridement Measurements/Treatment WC - Nurse 2 - General Ulcer CM Notes Start: 01/22/18 14:02 Freq: Status: Active Protocol: Activity Type Activity Date Activity User E-Sign Co-Sign Detail Recorded Client Recorded Date Recorded By Document 01/22/18 14:34 CS [id number] 01/22/18 14:48 CS Document 01/29/18 15:36 JF [id number] 01/29/18 15:39 JF Document 02/05/18 15:07 JF [id number] 02/05/18 15:11 JF Document 02/12/18 16:17 JF [id number] 02/12/18 16:18 JF 01/22/18 01/29/18 02/05/18 14:34 15:36 15:07 Wound Center Nurse 2 #4 RIGHT UPPER PERRY -Time 14:34 -Correct Patient Yes No -Correct Side, Site, Position Yes No -Correct Procedure Yes No -Procedure Performed Yes No -Type of Procedure Debridement -Clinical Debridement Subcutaneous -Post Debridement Size (cm) - Length 0.4 0 -Post Debridement Size (cm) - Width 0.3 0 -Post Debridement Size (cm) - Depth 0.1 0 -Total Square Cm 0.12 0 -Wound/Ulcer Outcome Not Healed Healed- Epithelialized -Ulcer Cleansing Not Cleansed -Foul Odor after Cleansing No -Bioengineered Tissue No -Bleeding Controlled with NA -Treatment Response Procedure Tolerated Well #3 Right Lateral LE -Time 14:36 15:37 15:09 -Correct Patient Yes Yes Yes -Correct Side, Site, Position Yes Yes Yes -Correct Procedure Yes Yes Yes -Procedure Performed Yes Yes Yes -Type of Procedure Debridement Debridement Debridement -Clinical Debridement Subcutaneous Subcutaneous Subcutaneous -Post Debridement Size (cm) - Length 0.3 0.5 0.3 -Post Debridement Size (cm) - Width 0.3 0.4 0.4 -Post Debridement Size (cm) - Depth 0.1 0.1 0.1 -Total Square Cm 0.09 0.20 0.12 -Wound/Ulcer Outcome Not Healed Not Healed Not Healed -Ulcer Cleansing Not Cleansed Rinsed/ Rinsed/ Irrigated with Irrigated with Saline Saline -Foul Odor after Cleansing No No No -Bioengineered Tissue No No -Bleeding Controlled with NA Pressure Pressure -Treatment Response Procedure Procedure Procedure Tolerated Well Tolerated Well Tolerated Well Pain Scale: 0-10 Numeric Is Patient Pain Free? No Yes Yes 02/12/18 16:17 Wound Center Nurse 2 #4 RIGHT UPPER PERRY -Time -Correct Patient -Correct Side, Site, Position -Correct Procedure -Procedure Performed -Type of Procedure -Clinical Debridement -Post Debridement Size (cm) - Length -Post Debridement Size (cm) - Width -Post Debridement Size (cm) - Depth -Total Square Cm -Wound/Ulcer Outcome -Ulcer Cleansing -Foul Odor after Cleansing -Bioengineered Tissue -Bleeding Controlled with -Treatment Response #3 Right Lateral LE -Time 16:18 -Correct Patient Yes -Correct Side, Site, Position Yes -Correct Procedure Yes -Procedure Performed Yes -Type of Procedure Debridement -Clinical Debridement Subcutaneous -Post Debridement Size (cm) - Length 0.5 -Post Debridement Size (cm) - Width 0.5 -Post Debridement Size (cm) - Depth 0.1 -Total Square Cm 0.25 -Wound/Ulcer Outcome Not Healed -Ulcer Cleansing Rinsed/ Irrigated with Saline -Foul Odor after Cleansing No -Bioengineered Tissue No -Bleeding Controlled with Pressure -Treatment Response Procedure Tolerated Well Pain Scale: 0-10 Numeric Is Patient Pain Free? 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 Open wound of right lower extremity. 2. Peripheral arterial disease. 3. Venous insufficiency of both lower extremities. 4. History of cellulitis right lower extremity. 5. Current use of long-term anticoagulation. Plan: Ms. Carter appears to be not very compliant with instructions. Will continue collagen hydrogel to opened area. Right medial lower leg wound healed. Refer to Dr. Busby for venous disease. She still has not heard from them, we will call to see if we can make an appointment and have given her their number so she can alsoe persue this. Will order circaid to right leg with a different company since the one does not take her insurance. Instructed her to let us know when she receives her Circaid and she can come in for a nurses visit to learn how the proper application. Left leg she can get Compression stockings 20-30 at [employer], which she has not gotten because she does not have any money. Stressed the importance of wearing her compression. Suspect she is very noncompliant with wearing her compression. Strongly advised to elevate her lower extremities when sitting and in bed and avoid idle standing. Exercise also recommended. Compliance strongly encouraged. Increased protein intake/supplements also recommended. Follow up in 2 weeks. Code Visit [id number]: [id number] Nayeli subq tissue 20 sq cm/<
== END 2018-02-20 23:59 ==
LOC: WC 15:00
PROVIDERS: Referring Provider Internal Medicine; Visit Provider Nurse Practitioner Family
DX: I73.9 Peripheral vascular disease, unspecified (principal); I87.2 Venous insufficiency (chronic) (peripheral); Z87.2 Personal history of diseases of the skin and subcutaneous tissue
CPT/HCPCS: 11042; 29581

== ENCOUNTER 2018-02-26 14:42 | Outpatient (RCR) | payer MEDICAID, SELFPAY ==
[2018-02-21 01:24] VITALS: BP 146/82; PULSE 76; RESP 22; TEMP 36.2
[2018-02-26 14:47] VITALS: BP 124/69; PULSE 97; RESP 20; TEMP 37
--- NOTE | 2018-02-26 17:36 | PCM.WC.PN ---
(1) Peripheral arterial disease Status: Chronic Current Visit: Yes Code(s): I73.9 - Peripheral vascular disease, unspecified (2) Open wound of right lower extremity Status: Acute Current Visit: No Code(s): S81.801A - Unspecified open wound, right lower leg, initial encounter (3) History of cellulitis Status: Acute Current Visit: No Code(s): Z87.2 - Personal history of diseases of the skin and subcutaneous tissue (4) Venous insufficiency of both lower extremities Status: Chronic Current Visit: Yes Code(s): I87.2 - Venous insufficiency (chronic) (peripheral) Type of Wound Date of Service: 02/26/18 Chief Complaint: Traumatic wound, right lower extremity. History of Wound: Patient is a 42-year-old female who presented originally to the wound center on 12/13/2017 for nonhealing wound to her right lower extremity which she obtained after a fall. She had tried to manage it at home with antibiotic ointment and some other OTC wound care product without any significant improvement. She was then seen in [place] and diagnosed with cellulitis and had been placed on levofloxacin. On 01/11/2018 she had venous duplex ultrasound which showed the right great saphenous vein is incompetent below the knee, the left great saphenous vein is segmentally incompetent. On 01/11/18 she also had ABIs which showed right 1.14 and left 1.29. no DVT bilaterally found. Wound culture from 12/16/2017 showed Staphylococcus haemolyticus and Staphylococcus epidermidis. 12/21/2017 she ended up in the ED and admitted was given Vancomycin while admitted was started on clindamycin 12/20/2017 when she was discharged. She feels well otherwise and denies chills, nausea, vomiting. Progress of Wound: Healed. - Physical Exam Vital Signs Temp Pulse Resp BP 98.6 F 97 20 H 124/69 H 02/26/18 14:47 02/26/18 14:47 02/26/18 14:47 02/26/18 14:47 General: Alert, Oriented x3, Cooperative HEENT: Atraumatic, PERRLA Oral: Moist Mucosa Lungs: Normal air movement Cardiovascular: Regular rate Extremities: Capillary Refill Less than 3 Seconds, Edema, Peripheral Pulses Normal Skin: No rashes, No breakdown Wound Measurements and Assessment WC - Nurse 1 - General Ulcer Measurement Start: 02/26/18 14:47 Freq: Status: Active Protocol: Activity Type Activity Date Activity User E-Sign Co-Sign Detail Recorded Client Recorded Date Recorded By Document 02/26/18 14:47 [email or web address] [id number] 02/26/18 15:00 JS 02/26/18 14:47 Wound Center Nurse 1 [Ulcer Assessment] #3 Right Lateral LE -Combined with other wound No -Current Size (cm) - Length 0.1 -Current Size (cm) - Width 0.1 -Current Size (cm) - Depth 0.1 -Total Square Cm 0.01 -Date of Last Picture (Recall this 02/05/18 field) -Photo Taken Yes -Epithelialization Large 67-100% -Tunneling No -Undermining/Tunneling No -Circular Undermining No -Classification - Thickness Full Thickness without Exposed Support Structure -Granulation Amt None Present (0 %) -Granulation Quality N/A -Slough/Fibrin No -Necrosis Amt None Present (0 %) -Structure Exposed N/A -Texture (Meg-wound Skin Appearance) No Abnormality -Moisture (Meg-wound Skin Appearance No Abnormality ) -Color (Meg-wound Skin Appearance) Hemosiderin Staining -Temperature (Meg-wound Skin No Abnormality Appearance) (Pt Warm) -Tenderness on Palpation (Meg-wound No Skin Appearance) -Ulcer Cleansing Not Cleansed -Foul Odor after Cleansing No [Edema Assessment] -Lower Limb Edema Present Yes -Right Calf (cm) 58.0 -Right Ankle (cm) 34.0 WC - Nurse 2 - General Ulcer CM Notes Start: 02/26/18 14:47 Freq: Status: Active Protocol: Activity Type Activity Date Activity User E-Sign Co-Sign Detail Recorded Client Recorded Date Recorded By Document 02/26/18 15:32 MELINDA [id number] 02/26/18 15:33 02/26/18 15:32 Wound Center Nurse 2 [Procedure/Treatment] #3 Right Lateral LE -Time 15:32 -Correct Patient No -Correct Side, Site, Position No -Correct Procedure No -Procedure Performed No -Post Debridement Size (cm) - Length 0 -Post Debridement Size (cm) - Width 0 -Post Debridement Size (cm) - Depth 0 -Total Square Cm 0 -Wound/Ulcer Outcome Healed- Epithelialized [See Physician Procedure note for Specifics] Pain Scale: 0-10 Numeric [Pain] -Is Patient Pain Free? Yes Musculoskeletal: No Tenderness to Palpation of Joints or Extremities Neurological: Neuro grossly intact Psych/Mental Status: Normal Affect, Appropriate Debridement Note Post-Debridement Measurements/Treatment WC - Nurse 2 - General Ulcer CM Notes Start: 02/26/18 14:47 Freq: Status: Active Protocol: Activity Type Activity Date Activity User E-Sign Co-Sign Detail Recorded Client Recorded Date Recorded By Document 02/26/18 15:32 [id number] 02/26/18 15:33 02/26/18 15:32 Wound Center Nurse 2 #3 Right Lateral LE -Time 15:32 -Correct Patient No -Correct Side, Site, Position No -Correct Procedure No -Procedure Performed No -Post Debridement Size (cm) - Length 0 -Post Debridement Size (cm) - Width 0 -Post Debridement Size (cm) - Depth 0 -Total Square Cm 0 -Wound/Ulcer Outcome Healed- Epithelialized Pain Scale: 0-10 Numeric Is Patient Pain Free? Yes No debridement was completed today Assessment/Plan Active Problems Peripheral arterial disease (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 Open wound of right lower extremity. 2. Peripheral arterial disease. 3. Venous insufficiency of both lower extremities. 4. History of cellulitis right lower extremity. 5. Current use of long-term anticoagulation. Plan: Right medial lower leg wound healed. Refer to Dr. Busby for venous disease. She still has not scheduled an appointment with Dr. Busby because she was only given options for his [place] office and that is too far to drive. Instructed her to call them back and ask for an appointment in the [place] office. Gave her his office number again so she could make that appointment. She was declined circaid to right leg by her insurance. Instructed her to get Compression stockings 20-30 at [employer] which she has not gotten because she does not have any money. Stressed the importance of wearing her compression. Suspect she is very noncompliant with wearing her compression. Strongly advised to elevate her lower extremities when sitting and in bed and avoid idle standing. Exercise also recommended. Compliance strongly encouraged. Increased protein intake/supplements also recommended. She can continue to wear the surpress wraps until she is able to afford the compression stockings. She is being discharged today from the wound center, but stressed the importance of following up with Dr. Busby. Instructed her that she may return to the wound center if she develops any futher wounds/ulcers in the future. Code Visit Office Visits / Consults: [id number] OV L2 Est
== END 2018-03-22 23:59 ==
LOC: WC 14:42
PROVIDERS: Referring Provider Internal Medicine; Visit Provider Nurse Practitioner Family
DX: I73.9 Peripheral vascular disease, unspecified (principal); I87.2 Venous insufficiency (chronic) (peripheral); Z87.2 Personal history of diseases of the skin and subcutaneous tissue
CPT/HCPCS: 99212; G0463

== ENCOUNTER 2018-08-20 15:00 | Outpatient (RCR) | payer MEDICARE, MEDICAID, SELFPAY ==
[2018-08-14 11:39] VITALS: BP 139/87; PULSE 87; RESP 22; TEMP 36.4; BMI 58.1
--- NOTE | 2018-08-14 17:24 | PCM.WC.HP ---
(1) Chronic ulcer of left foot with fat layer exposed Status: Chronic Current Visit: Yes Code(s): L97.522 - Non-pressure chronic ulcer of other part of left foot with fat layer exposed (2) Morbid obesity Status: Chronic Current Visit: Yes Code(s): E66.01 - Morbid (severe) obesity due to excess calories (3) Venous insufficiency of both lower extremities Status: Chronic Current Visit: Yes Code(s): I87.2 - Venous insufficiency (chronic) (peripheral) History of Present Illness Chief Complaint: Nonhealing left foot ulcer and maceration. History of Wound: Ms. Carter is a 43-year-old who presents to the wound center due to left foot concerns. She noted increased drainage said to be copious from her left foot. Was initially managed by a primary care physician however when symptoms persisted, she was referred to podiatry. Patient states that she did follow-up with a chief technical officer for a month with no significant improvement and was advised to follow-up with the wound center. She denies any prior history. No history of trauma. She denies chills, fever otherwise feeling of unwell. 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) Varicose veins of right lower extremity with both ulcer of calf and inflammation (Chronic) Current use of intermediate card tender anticoagulation (Chronic) Venous insufficiency of both lower extremities (Chronic) Chronic pain of right lower extremity (Chronic) Pain of left lower extremity (Chronic) History of pulmonary embolism (Chronic) Post-phlebitic syndrome (Chronic) Morbid obesity (Chronic) Irritable bowel syndrome (IBS) (Chronic) Arthritis (Chronic) 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 She is also undergone several surgeries for anal fistula. Allergies/Adverse Reactions: Allergies amoxicillin Allergy (Verified 08/14/18 11:58) Other cephalexin Allergy (Verified 08/14/18 11:58) Other naproxen Allergy (Verified 08/14/18 11:58) Other sulfamethoxazole [From Bactrim] Allergy (Verified 08/14/18 11:58) Other trimethoprim [From Bactrim] Allergy (Verified 08/14/18 11:58) Other Home Medications: Ambulatory Orders Medication Instructions Recorded Furosemide 20 mg PO PRN PRN 02/16/16 Calcium Carbonate/Vitamin D3 1 tab PO BID 12/13/17 [Calcium 600-Vit D3 500 Softgel] Ferrous Sulfate 325 mg PO DAILY 12/13/17 Loperamide [Imodium] 4 - 6 mg PO Q6H PRN PRN 12/13/17 Melatonin 3 mg PO DAILY 12/13/17 Sertraline HCl [Zoloft] 25 mg PO DAILY 12/13/17 Warfarin [Coumadin] 5 mg PO SUMOWETHFR 12/13/17 Zinc Sulfate (50mg elemental) 220 mg PO QHS 12/13/17 [Zinc Sulfate] Acetaminophen [Tylenol] 1,000 mg PO Q6H PRN PRN 12/21/17 Ascorbic Acid [Vitamin C] 2,000 mg PO BID 12/21/17 Ergocalciferol [Vitamin D] 50,000 unit PO Q7D 12/21/17 Loperamide HCl [Imodium A-D] 2 mg PO PRN PRN 12/21/17 Magnesium Oxide [Magnesium] 400 mg PO BID 12/21/17 Warfarin Sodium 4.5 mg PO TUSA 12/21/17 Ondansetron HCl [Zofran] 4 mg PO Q6H #20 tab 12/22/17 - Family History Maternal No pertinent history Paternal No pertinent history Smoking Status: Never smoker Review of Systems Constitutional: Denies: Anorexia, Chills, Fever Eyes: Denies: Blurred vision, Pain, Redness HEENT: Denies: Difficulty Hearing, Difficulty Swallowing Cardiovascular: Denies: Chest Pain, Chest Pressure Respiratory: Denies: Hemoptysis Gastrointestinal: Denies: Abdominal Pain, Hematemesis, Vomiting Genitourinary: Denies: Hematuria Skin: Denies: Jaundice - Physical Exam Vital Signs Temp Pulse Resp BP 97.6 F L 87 22 H 139/87 H 08/14/18 11:39 08/14/18 11:39 08/14/18 11:39 08/14/18 11:39 General: Alert, Oriented x3, Cooperative, No apparent distress HEENT: Atraumatic, Normocephalic Oral: Moist Mucosa Neck: Supple, No JVD Lungs: Normal air movement Cardiovascular: Regular rate, Regular Rhythm Abdomen: Soft, Non Tender, Obese Extremities: No cyanosis, Edema Skin: Ulcer/ Wound Wound Measurements and Assessment WC - Nurse 1 - General Ulcer Measurement Start: 08/14/18 11:39 Freq: Status: Active Protocol: Activity Type Activity Date Activity User E-Sign Co-Sign Detail Recorded Client Recorded Date Recorded By Document 08/14/18 11:39 DL [id number] 08/14/18 11:55 DL 08/14/18 11:39 Wound Center Nurse 1 [Ulcer Assessment] #5 L Heel -Current Size (cm) - Length 3 -Current Size (cm) - Width 5.5 -Current Size (cm) - Depth 0.1 -Total Square Cm 16.5 -Photo Taken Yes -Classification - Thickness Partial Thickness -Exudate Amt Large -Exudate Type Serosanguineous -Wound Margin Indistinct, Non -Visible -Granulation Amt None Present (0 %) -Necrosis Amt None Present (0 %) -Structure Exposed N/A -Texture (Meg-wound Skin Appearance) Localized Edema -Moisture (Meg-wound Skin Appearance Maceration ) -Color (Meg-wound Skin Appearance) Erythema Hemosiderin Staining -Temperature (Meg-wound Skin No Abnormality Appearance) (Pt Warm) -Tenderness on Palpation (Meg-wound No Skin Appearance) -Ulcer Cleansing Wound Cleanser -Foul Odor after Cleansing No -Anesthetic Used 4% Lidocaine Solution [Edema Assessment] -Right Calf (cm) 46.5 -Right Ankle (cm) 30 -Left Calf (cm) 57 -Left Ankle (cm) 33 WC - Nurse 2 - General Ulcer CM Notes Start: 08/14/18 11:39 Freq: Status: Active Protocol: Activity Type Activity Date Activity User E-Sign Co-Sign Detail Recorded Client Recorded Date Recorded By Document 08/14/18 12:14 MW [id number] 08/14/18 12:18 MW 08/14/18 12:14 Wound Center Nurse 2 [Procedure/Treatment] #5 L Heel -Time 12:16 -Correct Patient Yes -Correct Side, Site, Position Yes -Correct Procedure Yes -Procedure Performed Yes -Type of Procedure Debridement -Clinical Debridement Subcutaneous -Post Debridement Size (cm) - Length 5.0 -Post Debridement Size (cm) - Width 7.0 -Post Debridement Size (cm) - Depth 0.1 -Total Square Cm 35.00 -Wound/Ulcer Outcome Not Healed -Ulcer Cleansing Rinsed/ Irrigated with Saline -Foul Odor after Cleansing No -Bioengineered Tissue No -Bleeding Controlled with Pressure -Offloading No -Treatment Response Procedure Tolerated Well [See Physician Procedure note for Specifics] Pain Scale: 0-10 Numeric [Pain] -Is Patient Pain Free? Yes Musculoskeletal: No Muscle Wasting Neurological: Cranial nerves II-XII grossly intact Psych/Mental Status: Normal Affect Debridement Note Post-Debridement Measurements/Treatment WC - Nurse 2 - General Ulcer CM Notes Start: 08/14/18 11:39 Freq: Status: Active Protocol: Activity Type Activity Date Activity User E-Sign Co-Sign Detail Recorded Client Recorded Date Recorded By Document 08/14/18 12:14 MW [id number] 08/14/18 12:18 MW 08/14/18 12:14 Wound Center Nurse 2 #5 L Heel -Time 12:16 -Correct Patient Yes -Correct Side, Site, Position Yes -Correct Procedure Yes -Procedure Performed Yes -Type of Procedure Debridement -Clinical Debridement Subcutaneous -Post Debridement Size (cm) - Length 5.0 -Post Debridement Size (cm) - Width 7.0 -Post Debridement Size (cm) - Depth 0.1 -Total Square Cm 35.00 -Wound/Ulcer Outcome Not Healed -Ulcer Cleansing Rinsed/ Irrigated with Saline -Foul Odor after Cleansing No -Bioengineered Tissue No -Bleeding Controlled with Pressure -Offloading No -Treatment Response Procedure Tolerated Well Pain Scale: 0-10 Numeric Is Patient Pain Free? Yes Wound debrided: Left foot Wound Grade/Stage: Stage II Type of Debridement: Excisional debridement Anesthesia Used: 4% Lidocaine Solution Depth: Down to and including healthy tissue, in the subcutaneous layer Percentage of wound debrided: 100 Instrument Used: 5mm curette Tissue Removed: Slough and devitalized tissue Severity: Fat Layer Exposed Amount of bleeding with debridement: Mild Bleeding Controlled with: Pressure Patient tolerated procedure well Assessment/Plan Active Problems Chronic ulcer of left foot with fat layer exposed (Chronic) Venous insufficiency of both lower extremities (Chronic) Morbid obesity (Chronic) Assessment: Right foot ulceration/maceration ? Cause. Bilateral venous insufficiency. Morbid obesity. Plan: Ms. Carter presents with significant maceration of the left posterior foot with questionable ulcer underneath. Debridement done as documented above, procedure was well-tolerated. She reports as stated above copious drainage/discharge. Have advised that she follow-up with dermatology. She might benefit from a biopsy. For now Xeroform daily with Karamax over top. Aashish wraps for edema management. Advised to elevate lower extremities when seated in bed. Increase protein intake also recommended. All her questions were answered and she was advised to call with any further questions or concerns. Follow-up in 1 week. This note was generated with [employer] dictation software. It may contain incorrect words, spelling, and punctuation that were not noted in checking the note before signing.
--- NOTE | 2018-08-14 17:29 | HP.PCM_ITS ---
(1) Chronic ulcer of left foot with fat layer exposed Status: Chronic Current Visit: Yes Code(s): L97.522 - Non-pressure chronic ulcer of other part of left foot with fat layer exposed (2) Morbid obesity Status: Chronic Current Visit: Yes Code(s): E66.01 - Morbid (severe) obesity due to excess calories (3) Venous insufficiency of both lower extremities Status: Chronic Current Visit: Yes Code(s): I87.2 - Venous insufficiency (chronic) (peripheral) History of Present Illness Chief Complaint: Nonhealing left foot ulcer and maceration. History of Wound: Ms. Carter is a 43-year-old who presents to the wound center due to left foot concerns. She noted increased drainage said to be copious from her left foot. Was initially managed by a primary care physician however when symptoms persisted, she was referred to podiatry. Patient states that she did follow-up with a tissue rewinder for a month with no significant improvement and was advised to follow-up with the wound center. She denies any prior history. No history of trauma. She denies chills, fever otherwise feeling of unwell. 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 She is also undergone several surgeries for anal fistula. Allergies/Adverse Reactions: Allergies amoxicillin Allergy (Verified 08/14/18 11:58) Other cephalexin Allergy (Verified 08/14/18 11:58) Other naproxen Allergy (Verified 08/14/18 11:58) Other sulfamethoxazole [From Bactrim] Allergy (Verified 08/14/18 11:58) Other trimethoprim [From Bactrim] Allergy (Verified 08/14/18 11:58) Other Home Medications: Ambulatory Orders Medication Instructions Recorded Furosemide 20 mg PO PRN PRN 02/16/16 Calcium Carbonate/Vitamin D3 1 tab PO BID 12/13/17 [Calcium 600-Vit D3 500 Softgel] Ferrous Sulfate 325 mg PO DAILY 12/13/17 Loperamide [Imodium] 4 - 6 mg PO Q6H PRN PRN 12/13/17 Melatonin 3 mg PO DAILY 12/13/17 Sertraline HCl [Zoloft] 25 mg PO DAILY 12/13/17 Warfarin [Coumadin] 5 mg PO SUMOWETHFR 12/13/17 Zinc Sulfate (50mg elemental) 220 mg PO QHS 12/13/17 [Zinc Sulfate] Acetaminophen [Tylenol] 1,000 mg PO Q6H PRN PRN 12/21/17 Ascorbic Acid [Vitamin C] 2,000 mg PO BID 12/21/17 Ergocalciferol [Vitamin D] 50,000 unit PO Q7D 12/21/17 Loperamide HCl [Imodium A-D] 2 mg PO PRN PRN 12/21/17 Magnesium Oxide [Magnesium] 400 mg PO BID 12/21/17 Warfarin Sodium 4.5 mg PO TUSA 12/21/17 Ondansetron HCl [Zofran] 4 mg PO Q6H #20 tab 12/22/17 - Family History Maternal No pertinent history Paternal No pertinent history Smoking Status: Never smoker Review of Systems Constitutional: Denies: Anorexia, Chills, Fever Eyes: Denies: Blurred vision, Pain, Redness HEENT: Denies: Difficulty Hearing, Difficulty Swallowing Cardiovascular: Denies: Chest Pain, Chest Pressure Respiratory: Denies: Hemoptysis Gastrointestinal: Denies: Abdominal Pain, Hematemesis, Vomiting Genitourinary: Denies: Hematuria Skin: Denies: Jaundice - Physical Exam Vital Signs Temp Pulse Resp BP 97.6 F L 87 22 H 139/87 H 08/14/18 11:39 08/14/18 11:39 08/14/18 11:39 08/14/18 11:39 General: Alert, Oriented x3, Cooperative, No apparent distress HEENT: Atraumatic, Normocephalic Oral: Moist Mucosa Neck: Supple, No JVD Lungs: Normal air movement Cardiovascular: Regular rate, Regular Rhythm Abdomen: Soft, Non Tender, Obese Extremities: No cyanosis, Edema Skin: Ulcer/ Wound Wound Measurements and Assessment WC - Nurse 1 - General Ulcer Measurement Start: 08/14/18 11:39 Freq: Status: Active Protocol: Activity Type Activity Date Activity User E-Sign Co-Sign Detail Recorded Client Recorded Date Recorded By Document 08/14/18 11:39 DL [id number] 08/14/18 11:55 DL 08/14/18 11:39 Wound Center Nurse 1 [Ulcer Assessment] #5 L Heel -Current Size (cm) - Length 3 -Current Size (cm) - Width 5.5 -Current Size (cm) - Depth 0.1 -Total Square Cm 16.5 -Photo Taken Yes -Classification - Thickness Partial Thickness -Exudate Amt Large -Exudate Type Serosanguineous -Wound Margin Indistinct, Non -Visible -Granulation Amt None Present (0 %) -Necrosis Amt None Present (0 %) -Structure Exposed N/A -Texture (Meg-wound Skin Appearance) Localized Edema -Moisture (Meg-wound Skin Appearance Maceration ) -Color (Meg-wound Skin Appearance) Erythema Hemosiderin Staining -Temperature (Meg-wound Skin No Abnormality Appearance) (Pt Warm) -Tenderness on Palpation (Meg-wound No Skin Appearance) -Ulcer Cleansing Wound Cleanser -Foul Odor after Cleansing No -Anesthetic Used 4% Lidocaine Solution [Edema Assessment] -Right Calf (cm) 46.5 -Right Ankle (cm) 30 -Left Calf (cm) 57 -Left Ankle (cm) 33 WC - Nurse 2 - General Ulcer CM Notes Start: 08/14/18 11:39 Freq: Status: Active Protocol: Activity Type Activity Date Activity User E-Sign Co-Sign Detail Recorded Client Recorded Date Recorded By Document 08/14/18 12:14 MW [id number] 08/14/18 12:18 MW 08/14/18 12:14 Wound Center Nurse 2 [Procedure/Treatment] #5 L Heel -Time 12:16 -Correct Patient Yes -Correct Side, Site, Position Yes -Correct Procedure Yes -Procedure Performed Yes -Type of Procedure Debridement -Clinical Debridement Subcutaneous -Post Debridement Size (cm) - Length 5.0 -Post Debridement Size (cm) - Width 7.0 -Post Debridement Size (cm) - Depth 0.1 -Total Square Cm 35.00 -Wound/Ulcer Outcome Not Healed -Ulcer Cleansing Rinsed/ Irrigated with Saline -Foul Odor after Cleansing No -Bioengineered Tissue No -Bleeding Controlled with Pressure -Offloading No -Treatment Response Procedure Tolerated Well [See Physician Procedure note for Specifics] Pain Scale: 0-10 Numeric [Pain] -Is Patient Pain Free? Yes Musculoskeletal: No Muscle Wasting Neurological: Cranial nerves II-XII grossly intact Psych/Mental Status: Normal Affect Debridement Note Post-Debridement Measurements/Treatment WC - Nurse 2 - General Ulcer CM Notes Start: 08/14/18 11:39 Freq: Status: Active Protocol: Activity Type Activity Date Activity User E-Sign Co-Sign Detail Recorded Client Recorded Date Recorded By Document 08/14/18 12:14 MW [id number] 08/14/18 12:18 MW 08/14/18 12:14 Wound Center Nurse 2 #5 L Heel -Time 12:16 -Correct Patient Yes -Correct Side, Site, Position Yes -Correct Procedure Yes -Procedure Performed Yes -Type of Procedure Debridement -Clinical Debridement Subcutaneous -Post Debridement Size (cm) - Length 5.0 -Post Debridement Size (cm) - Width 7.0 -Post Debridement Size (cm) - Depth 0.1 -Total Square Cm 35.00 -Wound/Ulcer Outcome Not Healed -Ulcer Cleansing Rinsed/ Irrigated with Saline -Foul Odor after Cleansing No -Bioengineered Tissue No -Bleeding Controlled with Pressure -Offloading No -Treatment Response Procedure Tolerated Well Pain Scale: 0-10 Numeric Is Patient Pain Free? Yes Wound debrided: Left foot Wound Grade/Stage: Stage II Type of Debridement: Excisional debridement Anesthesia Used: 4% Lidocaine Solution Depth: Down to and including healthy tissue, in the subcutaneous layer Percentage of wound debrided: 100 Instrument Used: 5mm curette Tissue Removed: Slough and devitalized tissue Severity: Fat Layer Exposed Amount of bleeding with debridement: Mild Bleeding Controlled with: Pressure Patient tolerated procedure well Assessment/Plan Active Problems Chronic ulcer of left foot with fat layer exposed (Chronic) Venous insufficiency of both lower extremities (Chronic) Morbid obesity (Chronic) Assessment: Right foot ulceration/maceration ? Cause. Bilateral venous insufficiency. Morbid obesity. Plan: Ms. Carter presents with significant maceration of the left posterior foot with questionable ulcer underneath. Debridement done as documented above, procedure was well-tolerated. She reports as stated above copious drainage/discharge. Have advised that she follow-up with dermatology. She might benefit from a biopsy. For now Xeroform daily with Karamax over top. Aashish wraps for edema management. Advised to elevate lower extremities when seated in bed. Increase protein intake also recommended. All her questions were answered and she was advised to call with any further questions or concerns. Follow-up in 1 week. This note was generated with [employer] dictation software. It may contain incorrect words, spelling, and punctuation that were not noted in checking the note before signing.
[2018-08-20 15:02] VITALS: BP 144/91; PULSE 87; RESP 18; TEMP 37; BMI 58.1
--- NOTE | 2018-08-20 17:01 | PCM.WC.PN ---
(1) Chronic ulcer of left foot limited to breakdown of skin Status: Chronic Code(s): L97.521 - Non-pressure chronic ulcer of other part of left foot limited to breakdown of skin (2) Left foot pain Status: Chronic Code(s): M79.672 - Pain in left foot (3) Bilateral lower extremity edema Status: Chronic Code(s): R60.0 - Localized edema (4) Peripheral arterial disease Status: Chronic Code(s): I73.9 - Peripheral vascular disease, unspecified (5) Venous insufficiency of both lower extremities Status: Chronic Code(s): I87.2 - Venous insufficiency (chronic) (peripheral) (6) Morbid obesity Status: Chronic Code(s): E66.01 - Morbid (severe) obesity due to excess calories (7) Status post club foot correction at Status: Chronic Code(s): Z98.890 - Other specified postprocedural states; Z87.76 - Personal history of (corrected) congenital malformations of integument, limbs and musculoskeletal system Type of Wound Date of Service: 08/20/18 Chief Complaint: Nonhealing left foot ulcer and maceration. History of Wound: Ms. Carter is a 43-year-old who presents to the wound center due to left foot concerns. She noted increased drainage said to be copious from her left foot. Was initially managed by a primary care physician however when symptoms persisted, she was referred to podiatry. Patient states that she did follow-up with a commissary production supervisor for a month with no significant improvement and was advised to follow-up with the wound center. She has a history of having a left club foot with surgery. She wears a leather custom brace that is deteriorating inside. Suspect this maybe the cause of the left heel issues. She has been using xeroform gauze covered with ABD which has greatly improved her heel excoriation and moisture. She denies chills, fever otherwise feeling of unwell. Progress of Wound: Improved - Physical Exam Vital Signs Temp Pulse Resp BP 98.6 F 87 18 144/91 H 08/20/18 15:02 08/20/18 15:02 08/20/18 15:02 08/20/18 15:02 General: Alert, Oriented x3, Cooperative HEENT: Atraumatic Oral: Moist Mucosa Lungs: Clear to auscultation, Normal air movement Cardiovascular: Regular rate, Regular Rhythm Abdomen: Soft, Obese Extremities: Capillary Refill Less than 3 Seconds, Edema, Peripheral Pulses Normal Skin: Ulcer/ Wound - Left heal ulcer Wound Measurements and Assessment WC - Nurse 1 - General Ulcer Measurement Start: 08/14/18 11:39 Freq: Status: Active Protocol: Activity Type Activity Date Activity User E-Sign Co-Sign Detail Recorded Client Recorded Date Recorded By Document 08/20/18 15:02 AN [email or web address] 08/20/18 15:25 AN 08/20/18 15:02 Wound Center Nurse 1 [Ulcer Assessment] #5 L Heel -Current Size (cm) - Length 3.5 -Current Size (cm) - Width 11 -Current Size (cm) - Depth 0.1 -Total Square Cm 38.5 -Photo Taken No -Epithelialization Small 1-33% -Tunneling No -Undermining/Tunneling No -Classification - Thickness Full Thickness without Exposed Support Structure -Exudate Amt Medium -Exudate Type Serosanguineous -Wound Margin Flat & Intact -Granulation Amt Large (67-100%) -Granulation Quality [place] Red -Slough/Fibrin Yes -Necrosis Amt Large (67-100%) -Necrotic Tissue Type Adherent Slough -Structure Exposed None/Limited to Skin Breakdown -Texture (Meg-wound Skin Appearance) Assessed Localized Edema -Moisture (Meg-wound Skin Appearance Assessed ) Dry/Scaly -Color (Meg-wound Skin Appearance) Assessed -Temperature (Meg-wound Skin No Abnormality Appearance) (Pt Warm) -Tenderness on Palpation (Meg-wound Yes Skin Appearance) -Ulcer Cleansing soap and water -Foul Odor after Cleansing No -Anesthetic Used 4% Lidocaine Solution [Edema Assessment] -Left Calf (cm) 47.5 -Left Ankle (cm) 30.5 - Nurse 2 - General Ulcer CM Notes Start: 08/14/18 11:39 Freq: Status: Active Protocol: Activity Type Activity Date Activity User E-Sign Co-Sign Detail Recorded Client Recorded Date Recorded By Document 08/20/18 16:10 AN [id number] 08/20/18 16:30 AN 08/20/18 16:10 Wound Center Nurse 2 [Procedure/Treatment] #5 L Heel -Time 16:16 -Post Debridement Size (cm) - Length 3.5 -Post Debridement Size (cm) - Width 11.0 -Post Debridement Size (cm) - Depth 0.1 -Total Square Cm 38.50 -Wound/Ulcer Outcome Not Healed -Ulcer Cleansing soap and water -Foul Odor after Cleansing No -Bioengineered Tissue No -Treatment Response Procedure Tolerated Well [See Physician Procedure note for Specifics] Pain Scale: 0-10 Numeric [Pain] -Is Patient Pain Free? Yes Musculoskeletal: No Tenderness to Palpation of Joints or Extremities Neurological: Neuro grossly intact Psych/Mental Status: Normal Affect, Appropriate Debridement Note Post-Debridement Measurements/Treatment WC - Nurse 2 - General Ulcer CM Notes Start: 08/14/18 11:39 Freq: Status: Active Protocol: Activity Type Activity Date Activity User E-Sign Co-Sign Detail Recorded Client Recorded Date Recorded By Document 08/14/18 12:14 MW [id number] 08/14/18 12:18 MW Document 08/20/18 16:10 AN [id number] 08/20/18 16:30 AN 08/14/18 08/20/18 12:14 16:10 Wound Center Nurse 2 #5 L Heel -Time 12:16 16:16 -Correct Patient Yes -Correct Side, Site, Position Yes -Correct Procedure Yes -Procedure Performed Yes -Type of Procedure Debridement -Clinical Debridement Subcutaneous -Post Debridement Size (cm) - Length 5.0 3.5 -Post Debridement Size (cm) - Width 7.0 11.0 -Post Debridement Size (cm) - Depth 0.1 0.1 -Total Square Cm 35.00 38.50 -Wound/Ulcer Outcome Not Healed Not Healed -Ulcer Cleansing Rinsed/ soap and water Irrigated with Saline -Foul Odor after Cleansing No No -Bioengineered Tissue No No -Bleeding Controlled with Pressure -Offloading No -Treatment Response Procedure Procedure Tolerated Well Tolerated Well Pain Scale: 0-10 Numeric Is Patient Pain Free? Yes Yes No debridement was completed today Assessment/Plan Assessment: Left foot ulceration/maceration. Bilateral venous insufficiency. Morbid obesity. Plan: Ms. Carter presents with improvement of maceration of the left posterior foot. She saw Dr. Rodriguez last week. No debridement done today. There are small fissures but nothing to debride. Her foot is much ore storage drier using ABD (or Karamax) dressing to absorb the moisture over xeroform gauze. Aashish wraps for edema management. Advised to elevate lower extremities when seated in bed. Increase protein intake also recommended. She was started on Cipro and Flagyl last week but she stopped taking them due to it was making her ill. Ordered a course of Doxycycline and instructed her to take it with food. She has a history of club foot repair on her left foot and she wears a custom leather brace on that foot. The brace has breakdown inside which possibly may be part of the issue with her left heel. She states that she went to her commissary production supervisor who states that there is nothing they can do because her brace needs to last 5 years and this is only the third year. I will refer her to one of the podiatrists that come to the wound center for further evaluation. They will be able to assist her better with her brace issue, since the leather is broken down inside. All her questions were answered and she was advised to call with any further questions or concerns. Follow-up in [address] Swartz or Dr. Francis. Code Visit Office Visits / Consults: [id number] OV L3 Est
== END 2018-08-20 23:59 ==
LOC: WC 15:00
PROVIDERS: Visit Provider Internal Medicine
DX: I87.2 Venous insufficiency (chronic) (peripheral) (principal); E66.01 Morbid (severe) obesity due to excess calories; Z68.43 Body mass index [BMI] 50.0-59.9, adult; Z71.3 Dietary counseling and surveillance; I73.9 Peripheral vascular disease, unspecified; Z86.711 Personal history of pulmonary embolism; Z79.899 Other long term (current) drug therapy; L97.422 Non-pressure chronic ulcer of left heel and midfoot with fat layer exposed
CPT/HCPCS: 11042; 11045; 99212; 99213; G0463

== ENCOUNTER 2018-09-18 14:30 | Outpatient (RCR) | payer MEDICARE, MEDICAID, SELFPAY ==
[2018-08-21 01:58] VITALS: BP 144/91; PULSE 87; RESP 18; TEMP 37
[2018-08-28 14:00] VITALS: BP 153/98; PULSE 88; RESP 18; TEMP 36.6; BMI 58.1
--- NOTE | 2018-08-28 17:08 | PCM.WC.PN ---
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 History of Wound: This 43-year-old female returns to clinic for left foot ulcer with continued drainage. She tries to wear compression. She denies fever, chill, nausea, vomiting. She is changing the dressing daily with Xeroform. Progress of Wound: Stable - Physical Exam Vital Signs Temp Pulse Resp BP 98 F 88 18 153/98 H 08/28/18 14:00 08/28/18 14:00 08/28/18 14:00 08/28/18 14:00 General: Alert, Oriented x3, Cooperative HEENT: Atraumatic Extremities: No cyanosis, Capillary Refill Less than 3 Seconds, No Calf Tenderness - Negative Elena and Briseno sign. Rectus left lower extremity, Edema - Palpable DP pulses nonpalpable PT pulses. Significant bilateral lower extremity edema, Peripheral Pulses Normal Skin: Ulcer/ Wound - No purulence, erythema, streaking, odor, or infection. Peripheral skin is hairless and atrophic., - - There is previous cicatrix from clubfoot correction surgery and the skin is invaginated with some maceration the posterior aspect. Wound Measurements and Assessment WC - Nurse 1 - General Ulcer Measurement Start: 08/28/18 14:00 Freq: Status: Active Protocol: Activity Type Activity Date Activity User E-Sign Co-Sign Detail Recorded Client Recorded Date Recorded By Document 08/28/18 14:00 RB [id number] 08/28/18 14:05 RB 08/28/18 14:00 Wound Center Nurse 1 [Ulcer Assessment] #5 L Heel -Combined with other wound No -Current Size (cm) - Length 3 -Current Size (cm) - Width 9.4 -Current Size (cm) - Depth 0.1 -Total Square Cm 28.2 -Tunneling No -Undermining/Tunneling No -Circular Undermining No -Exudate Amt Medium -Exudate Type Sanguineous -Wound Margin Distinct, Outline Attached -Granulation Amt Large (67-100%) -Granulation Quality [place] Red -Slough/Fibrin Yes -Necrosis Amt Small (1-33%) -Necrotic Tissue Type Adherent Slough -Structure Exposed N/A -Texture (Meg-wound Skin Appearance) Assessed -Moisture (Meg-wound Skin Appearance Maceration ) -Color (Meg-wound Skin Appearance) Assessed -Tenderness on Palpation (Meg-wound No Skin Appearance) -Ulcer Cleansing Wound Cleanser -Foul Odor after Cleansing No -Anesthetic Used 5% Lidocaine Gel [Edema Assessment] -Lower Limb Edema Present Yes -Right Calf (cm) 61.9 -Right Ankle (cm) 35.2 -Left Calf (cm) 50.7 -Left Ankle (cm) 29 WC - Nurse 2 - General Ulcer CM Notes Start: 08/28/18 14:00 Freq: Status: Active Protocol: Activity Type Activity Date Activity User E-Sign Co-Sign Detail Recorded Client Recorded Date Recorded By Document 08/28/18 14:48 AN [id number] 08/28/18 14:53 AN 08/28/18 14:48 Wound Center Nurse 2 [Procedure/Treatment] #5 L Heel -Time 14:52 -Post Debridement Size (cm) - Length 3 -Post Debridement Size (cm) - Width 9.4 -Post Debridement Size (cm) - Depth 0.1 -Total Square Cm 28.2 -Wound/Ulcer Outcome Not Healed -Ulcer Cleansing Rinsed/ Irrigated with Saline -Foul Odor after Cleansing No -Bleeding Controlled with Pressure -Offloading Yes -Type of Offloading Surgical Shoe -Treatment Response Procedure Tolerated Well [See Physician Procedure note for Specifics] Musculoskeletal: No Tenderness to Palpation of Joints or Extremities, Muscle Wasting Neurological: - - Lack of normal epicritic sensation light touch Psych/Mental Status: Normal Affect, Appropriate Debridement Note Post-Debridement Measurements/Treatment WC - Nurse 2 - General Ulcer CM Notes Start: 08/28/18 14:00 Freq: Status: Active Protocol: Activity Type Activity Date Activity User E-Sign Co-Sign Detail Recorded Client Recorded Date Recorded By Document 08/28/18 14:48 AN [email or web address] 08/28/18 14:53 AN 08/28/18 14:48 Wound Center Nurse 2 #5 L Heel -Time 14:52 -Post Debridement Size (cm) - Length 3 -Post Debridement Size (cm) - Width 9.4 -Post Debridement Size (cm) - Depth 0.1 -Total Square Cm 28.2 -Wound/Ulcer Outcome Not Healed -Ulcer Cleansing Rinsed/ Irrigated with Saline -Foul Odor after Cleansing No -Bleeding Controlled with Pressure -Offloading Yes -Type of Offloading Surgical Shoe -Treatment Response Procedure Tolerated Well Wound debrided: posterior heel Laterality: Left Type of Debridement: Excisional debridement Anesthesia Used: 4% Lidocaine Solution Depth: in the subcutaneous layer Percentage of wound debrided: 100 Instrument Used: #15 blade Tissue Removed: fibrous, devitalized subcutaneous, biofilm, slough Severity: Fat Layer Exposed Amount of bleeding with debridement: Mild Bleeding Controlled with: Pressure Patient tolerated procedure well Assessment/Plan Assessment: Right foot ulceration. Bilateral venous insufficiency. Morbid obesity. Plan: Ms. Carter presents with significant maceration and ulcer of the left posterior foot. Debridement done as documented above, procedure was well-tolerated. To change dressing daily with [employer]. She reports as stated above copious drainage/discharge. Aashish wraps for edema management. Other more aggressive compression will be considered. Advised to elevate lower extremities when seated in bed. To avoid idle standing or sitting. To elevate legs at rest. Increase protein intake also recommended. I do not appreciate any signs of infection she was reassured. To better offload the site by using a donut offloading pillow. Her labs will need to be updated. It is noted she had venous insufficiency with left greater saphenous vein from a study performed in 2018. Recommend follow-up with the vascular surgery to see if intervention is possible. It is also noted she had good arterial flow with studies performed in December 2017 with normal ABIs and triphasic waveforms. All her questions were answered and she was advised to call with any further questions or concerns. Follow-up in 1 week.
[2018-09-04 14:31] VITALS: BP 172/98; PULSE 98; RESP 18; TEMP 36.6; BMI 58.1
--- NOTE | 2018-09-04 15:43 | PCM.WC.PN ---
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 Status: Chronic Current Visit: Yes Code(s): I83.223 - 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 (4) Venous insufficiency of both lower extremities Status: Chronic Current Visit: Yes Code(s): I87.2 - Venous insufficiency (chronic) (peripheral) (5) Ulcer of right lower extremity with fat layer exposed Status: Acute Current Visit: Yes Code(s): L97.912 - Non-pressure chronic ulcer of unspecified part of right lower leg with fat layer exposed (6) Ulcer of left lower extremity with fat layer exposed Status: Chronic Current Visit: Yes Code(s): L97.922 - Non-pressure chronic ulcer of unspecified part of left lower leg with fat layer exposed (7) Malnutrition Status: Suspected Current Visit: Yes Code(s): E46 - Unspecified protein-calorie malnutrition (8) Pain of left lower extremity Status: Chronic Current Visit: Yes Code(s): M79.605 - Pain in left leg (9) Morbid obesity Status: Chronic Current Visit: Yes Code(s): E66.01 - Morbid (severe) obesity due to excess calories (10) Delayed wound healing Status: Acute Current Visit: Yes Code(s): T14.8XXD - Other injury of unspecified body region, subsequent encounter Type of Wound Chief Complaint: Nonhealing left foot ulcer and maceration. New right leg ulcers History of Wound: This 43-year-old female returns to clinic for left foot ulcer with continued drainage. She tries to wear compression. She denies fever, chill, nausea, vomiting. She is changing the dressing daily with Xeroform. She also relates new right leg ulcers that occurred this past week. She denies trauma. She does have some increased leg swelling. She is having trouble finding wearing compression garments. She has discomfort continued to her previous left lower leg ulcer site as well. She denies odor or redness. Progress of Wound: Improving left lower leg ulcer. New right leg ulcers - Physical Exam Vital Signs Temp Pulse Resp BP 97.8 F 98 18 172/98 H 09/04/18 14:31 09/04/18 14:31 09/04/18 14:31 09/04/18 14:31 General: Alert, Oriented x3, Cooperative Extremities: No cyanosis, Capillary Refill Less than 3 Seconds, No Calf Tenderness - Negative Elena and Briseno sign bilateral, Diminished Peripheral Pulses, Edema - Increased to bilateral lower extremities with hyperpigmentation and also lymphedema Skin: Ulcer/ Wound - No purulence, erythema, streaking, odor, infection, necrosis or deep tissue exposure bilateral lower extremity. The peripheral skin is hairless atrophic and hyperpigmented. The ulcers on the right leg are granular and there is only some scant some hemorrhagic tissue noted to the left lower extremity ulcer site with resolved maceration. The skin is very atrophic at this site and friable, Incision - Well-healed clubfoot reconstruction cicatrix left lower extremity Wound Measurements and Assessment WC - Nurse 1 - General Ulcer Measurement Start: 08/28/18 14:00 Freq: Status: Active Protocol: Activity Type Activity Date Activity User E-Sign Co-Sign Detail Recorded Client Recorded Date Recorded By Document 09/04/18 14:31 [id number] 09/04/18 14:42 09/04/18 14:31 Wound Center Nurse 1 [Ulcer Assessment] #7 RIGHT LOWER PERRY -Combined with other wound No -Current Size (cm) - Length 1.1 -Current Size (cm) - Width 1 -Current Size (cm) - Depth 0.1 -Total Square Cm 1.1 -Date of Last Picture (Recall this 09/04/18 field) -Photo Taken Yes -Epithelialization None Present -Tunneling No -Undermining/Tunneling No -Circular Undermining No -Granulation Amt Large (67-100%) -Granulation Quality Red -Color (Meg-wound Skin Appearance) Hemosiderin Staining -Temperature (Meg-wound Skin No Abnormality Appearance) (Pt Warm) -Tenderness on Palpation (Meg-wound Yes Skin Appearance) -Ulcer Cleansing Rinsed/ Irrigated with Saline -Foul Odor after Cleansing No -Anesthetic Used 5% Lidocaine Gel #6 RIGHT LATERAL LE -Combined with other wound No -Current Size (cm) - Length 0.4 -Current Size (cm) - Width 1.3 -Current Size (cm) - Depth 0.1 -Total Square Cm 0.52 -Date of Last Picture (Recall this 09/04/18 field) -Photo Taken Yes -Epithelialization None Present -Tunneling No -Undermining/Tunneling No -Circular Undermining No -Granulation Amt Medium (34-66%) -Granulation Quality Red -Slough/Fibrin Yes -Necrosis Amt Medium (34-66%) -Necrotic Tissue Type Adherent Slough -Structure Exposed None/Limited to Skin Breakdown -Texture (Meg-wound Skin Appearance) No Abnormality Assessed -Color (Meg-wound Skin Appearance) Hemosiderin Staining -Temperature (Meg-wound Skin No Abnormality Appearance) (Pt Warm) -Tenderness on Palpation (Meg-wound Yes Skin Appearance) -Ulcer Cleansing Rinsed/ Irrigated with Saline -Foul Odor after Cleansing No -Anesthetic Used 5% Lidocaine Gel #5 L Heel -Combined with other wound No -Current Size (cm) - Length 0.1 -Current Size (cm) - Width 0.1 -Current Size (cm) - Depth 0.1 -Total Square Cm 0.01 -Photo Taken No -Epithelialization Large 67-100% -Tunneling No -Undermining/Tunneling No -Circular Undermining No -Texture (Meg-wound Skin Appearance) Scarring -Moisture (Meg-wound Skin Appearance Maceration ) -Color (Meg-wound Skin Appearance) No Abnormality Assessed -Temperature (Meg-wound Skin No Abnormality Appearance) (Pt Warm) -Tenderness on Palpation (Meg-wound No Skin Appearance) -Ulcer Cleansing Rinsed/ Irrigated with Saline -Foul Odor after Cleansing No -Anesthetic Used 5% Lidocaine Gel [Edema Assessment] -Lower Limb Edema Present Yes -Right Calf (cm) 59 -Right Ankle (cm) 34.2 -Left Calf (cm) 49 -Left Ankle (cm) 30.6 WC - Nurse 2 - General Ulcer CM Notes Start: 08/28/18 14:00 Freq: Status: Active Protocol: Activity Type Activity Date Activity User E-Sign Co-Sign Detail Recorded Client Recorded Date Recorded By Document 09/04/18 15:23 MELINDA [id number] 09/04/18 15:27 MELINDA 09/04/18 15:23 Wound Center Nurse 2 [Procedure/Treatment] #7 RIGHT LOWER PERRY -Time 15:23 -Correct Patient Yes -Correct Side, Site, Position Yes -Correct Procedure Yes -Procedure Performed Yes -Type of Procedure Debridement -Clinical Debridement Subcutaneous -Post Debridement Size (cm) - Length 1.1 -Post Debridement Size (cm) - Width 1.1 -Post Debridement Size (cm) - Depth 0.1 -Total Square Cm 1.21 -Wound/Ulcer Outcome Not Healed -Ulcer Cleansing Rinsed/ Irrigated with Saline -Foul Odor after Cleansing No -Bioengineered Tissue No -Bleeding Controlled with Pressure -Offloading No -Treatment Response Procedure Tolerated Well #6 RIGHT LATERAL LE -Time 15:24 -Correct Patient Yes -Correct Side, Site, Position Yes -Correct Procedure Yes -Procedure Performed Yes -Type of Procedure Debridement -Clinical Debridement Subcutaneous -Post Debridement Size (cm) - Length 0.5 -Post Debridement Size (cm) - Width 1.3 -Post Debridement Size (cm) - Depth 0.1 -Total Square Cm 0.65 -Wound/Ulcer Outcome Not Healed -Ulcer Cleansing Rinsed/ Irrigated with Saline -Foul Odor after Cleansing No -Bioengineered Tissue No -Bleeding Controlled with Pressure -Offloading No -Treatment Response Procedure Tolerated Well #5 L Heel -Time 15:24 -Correct Patient Yes -Correct Side, Site, Position Yes -Correct Procedure Yes -Procedure Performed Yes -Type of Procedure Debridement -Clinical Debridement Selective -Post Debridement Size (cm) - Length 0.1 -Post Debridement Size (cm) - Width 0.4 -Post Debridement Size (cm) - Depth 0.1 -Total Square Cm 0.04 -Wound/Ulcer Outcome Not Healed -Ulcer Cleansing Rinsed/ Irrigated with Saline -Foul Odor after Cleansing No -Bioengineered Tissue No -Bleeding Controlled with Pressure -Offloading No -Treatment Response Procedure Tolerated Well [See Physician Procedure note for Specifics] Pain Scale: 0-10 Numeric [Pain] -Is Patient Pain Free? Yes Musculoskeletal: No Tenderness to Palpation of Joints or Extremities, Muscle Wasting, - Neurological: Sensory exam intact to light touch and pain Psych/Mental Status: Normal Affect, Appropriate Debridement Note Post-Debridement Measurements/Treatment WC - Nurse 2 - General Ulcer CM Notes Start: 08/28/18 14:00 Freq: Status: Active Protocol: Activity Type Activity Date Activity User E-Sign Co-Sign Detail Recorded Client Recorded Date Recorded By Document 08/28/18 14:48 AN [id number] 08/28/18 14:53 AN Document 09/04/18 15:23 [id number] 09/04/18 15:27 JF 08/28/18 09/04/18 14:48 15:23 Wound Center Nurse 2 #7 RIGHT LOWER PERRY -Time 15:23 -Correct Patient Yes -Correct Side, Site, Position Yes -Correct Procedure Yes -Procedure Performed Yes -Type of Procedure Debridement -Clinical Debridement Subcutaneous -Post Debridement Size (cm) - Length 1.1 -Post Debridement Size (cm) - Width 1.1 -Post Debridement Size (cm) - Depth 0.1 -Total Square Cm 1.21 -Wound/Ulcer Outcome Not Healed -Ulcer Cleansing Rinsed/ Irrigated with Saline -Foul Odor after Cleansing No -Bioengineered Tissue No -Bleeding Controlled with Pressure -Offloading No -Treatment Response Procedure Tolerated Well #6 RIGHT LATERAL LE -Time 15:24 -Correct Patient Yes -Correct Side, Site, Position Yes -Correct Procedure Yes -Procedure Performed Yes -Type of Procedure Debridement -Clinical Debridement Subcutaneous -Post Debridement Size (cm) - Length 0.5 -Post Debridement Size (cm) - Width 1.3 -Post Debridement Size (cm) - Depth 0.1 -Total Square Cm 0.65 -Wound/Ulcer Outcome Not Healed -Ulcer Cleansing Rinsed/ Irrigated with Saline -Foul Odor after Cleansing No -Bioengineered Tissue No -Bleeding Controlled with Pressure -Offloading No -Treatment Response Procedure Tolerated Well #5 L Heel -Time 14:52 15:24 -Correct Patient Yes -Correct Side, Site, Position Yes -Correct Procedure Yes -Procedure Performed Yes -Type of Procedure Debridement -Clinical Debridement Selective -Post Debridement Size (cm) - Length 3 0.1 -Post Debridement Size (cm) - Width 9.4 0.4 -Post Debridement Size (cm) - Depth 0.1 0.1 -Total Square Cm 28.2 0.04 -Wound/Ulcer Outcome Not Healed Not Healed -Ulcer Cleansing Rinsed/ Rinsed/ Irrigated with Irrigated with Saline Saline -Foul Odor after Cleansing No No -Bioengineered Tissue No -Bleeding Controlled with Pressure Pressure -Offloading Yes No -Type of Offloading Surgical Shoe -Treatment Response Procedure Procedure Tolerated Well Tolerated Well Pain Scale: 0-10 Numeric Is Patient Pain Free? Yes Wound debrided: lower anterior leg Laterality: Right Type of Debridement: Excisional debridement Anesthesia Used: 5% Lidocaine Gel Depth: in the subcutaneous layer Percentage of wound debrided: 100 Instrument Used: #15 blade Tissue Removed: fibrous, devitalized subcutaneous, biofilm, slough Severity: Fat Layer Exposed Amount of bleeding with debridement: Mild Bleeding Controlled with: Compression and gauze Patient tolerated procedure well - Additional Wound Wound debrided: lateral leg Laterality: Right Type of Debridement: Excisional debridement Anesthesia Used: 5% Lidocaine Gel Depth: in the subcutaneous layer Percentage of wound debrided: 100 Instrument Used: #15 blade Tissue Removed: fibrous, devitalized subcutaneous, biofilm, slough Severity: Fat Layer Exposed Amount of bleeding with debridement: Mild Bleeding Controlled with: Pressure Patient tolerated procedure: Patient tolerated procedure well - Additional Wound Wound debrided: posterior lower leg Laterality: Left Type of Debridement: Excisional debridement Anesthesia Used: 5% Lidocaine Gel Depth: in the subcutaneous layer Percentage of wound debrided: 100 Instrument Used: #15 blade Tissue Removed: fibrous, devitalized subcutaneous, biofilm, slough Severity: Fat Layer Exposed Amount of bleeding with debridement: Mild Bleeding Controlled with: Pressure Patient tolerated procedure: Patient tolerated procedure well Assessment/Plan Active Problems Bilateral lower extremity edema (Chronic) Left foot pain (Chronic) Chronic ulcer of left foot with fat layer exposed (Chronic) Ulcer of right lower extremity with fat layer exposed (Acute) Ulcer of left lower extremity with fat layer exposed (Chronic) Delayed wound healing (Acute) 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 Left lower leg ulcers, new. Bilateral venous insufficiency. Morbid obesity. No infection today Plan: Ms. Carter presents with significant maceration and ulcer of the left posterior foot. Debridement done as documented above, procedure was well-tolerated. To change dressing daily with [employer]. She reports as stated above copious drainage/discharge. Aashish wraps for edema management. Other more aggressive compression will be considered. Prescriptions for [place] wraps were provided for bilateral lower extremities and prior authorization is pending. This is medically necessary for limb salvage. She is failed other conservative care for this edema and venous insufficiency treatment such as compression stockings elevation and muscle contraction. Advised to elevate lower extremities when seated in bed. To avoid idle standing or sitting. To elevate legs at rest. Increase protein intake also recommended. A prescription for [employer] was provided she was advised on safe and proper use. I also recommended a nutrition referral for weight management and to optimize wound healing. I do not appreciate any signs of infection she was reassured. To better offload the site by using a donut offloading pillow. Her labs were updated without leukocytosis or other gross abnormalities. Her prealbumin was low at 16.9 and an albumin of 3.0. It is noted she had venous insufficiency with left greater saphenous vein from a study performed in 2018. Recommend follow-up with the vascular surgery to see if intervention is possible. It is also noted she had good arterial flow with studies performed in December 2017 with normal ABIs and triphasic waveforms. All her questions were answered and she was advised to call with any further questions or concerns. Follow-up in 1 week.
[2018-09-04 17:43] LABS: Absolute Lymphocyte Count 1.13 X10^3/ul (0.83-4.51); Absolute Neutrophil Count 3.8 X10^3/uL (2.0-7.7); Basophil# 0.02 X10^3/uL; Basophil% 0.4 % (0-1); Eosinophil# 0.08 X10^3/uL; Eosinophils% 1.5 % (0-5); Hematocrit 34.1 % (37-47); Hemoglobin 10.8 g/dl (12.0-15.0); Lymphocyte # 1.13 X10^3/ul (4.0); Lymphocyte % 20.8 % (19-41); Mean Corp Hgb Conc 31.7 g/gl (32-36); Mean Corpuscular Hgb 28.3 pg (27.0-32.0); Mean Corpuscular Volume 89.5 fL (81-99); Mean Platelet Vol. 10.9 fl (6.2-12.0); Monocyte# 0.33 X10^3/uL; Monocyte% 6.1 % (0-10); Neutrophil # 3.84 X10^3/uL (2.7-7.7); Neutrophil % 70.8 % (47-70); Platelet Count 168 K/mm3 (150-450); RBC Distribution Width CV 14.8 % (11.6-14.6); RBC Distribution Width SD 47.2 fl (35.1-43.9); Red Blood Count 3.81 M/mm3 (4.2-5.4); White Blood Count 5.4 K/mm3 (4.4-11.0)
[2018-09-04 17:45] LABS: POSITIVE COUNT NO; POSITIVE DIFFERENTIAL NO; POSITIVE MORPHOLOGY NO
[2018-09-04 17:49] LABS: ALB/GLOB Ratio 0.7 RATIO (0.9-2.4); AST(SGOT) 7 U/L (15-37); Alanine Aminotransfer ALT/SGPT 35 U/L (13-56); Alkaline Phosphatase 103 U/L (45-117); Anion Gap 8 (5-15); BUN 18 mg/dL (7-18); BUN/Creat Ratio 19.3 RATIO (10-20); Calcium,Total 8.9 mg/dL (8.5-10.1); Chloride 111 mmol/L (98-107); Creatinine, Serum 0.93 mg/dL (0.55-1.02); EST Glomerular Filtration Rate 70 mL/min (>60); Est Glom Filt Rate - Afr Amer 85 mL/min (>60); Estimated Creatinine Clearance 73.77 ml/min; Globulin 4.2 g/dL (2.2-4.2); Glucose 109 mg/dL (74-106); Potassium 3.7 mmol/L (3.5-5.1); Prealbumin 16.9 mg/dL (20.0-40.0); Protein, Total 7.2 g/dL (6.4-8.2); Sodium Level 145 mmol/L (136-145)
[2018-09-11 14:50] VITALS: BP 140/87; PULSE 99; RESP 18; TEMP 36.6; BMI 58.1
--- NOTE | 2018-09-11 15:06 | WC ---
pt states she is out of dressing supplies pt states she changes her dressings 4 times a day. pt encouraged to wear compression. pt not wearing compression today
--- NOTE | 2018-09-11 16:00 | PN.PCM_ITS ---
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 Status: Chronic Current Visit: Yes Code(s): I83.223 - 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 (6) Venous insufficiency of both lower extremities Status: Chronic Current Visit: Yes Code(s): I87.2 - Venous insufficiency (chronic) (peripheral) (7) Malnutrition Status: Suspected Current Visit: Yes Code(s): E46 - Unspecified protein- calorie malnutrition (8) Pain of left lower extremity Status: Chronic Current Visit: Yes Code(s): M79.605 - Pain in left leg (9) Morbid obesity Status: Chronic Current Visit: Yes Code(s): E66.01 - Morbid (severe) obesity due to excess calories (10) Delayed wound healing Status: Acute Current Visit: Yes Code(s): T14.8XXD - Other injury of unspecified body region, subsequent encounter Type of Wound Date of Service: 09/11/18 Chief Complaint: Nonhealing left foot ulcer and maceration. right leg ulcers History of Wound: This 43-year-old female returns to clinic for left foot ulcer with continued drainage. She tries to wear compression. She did not follow-up with the company with her compression garments were ordered from as advised. She denies fever, chill, nausea, vomiting. She notes that her nutrition referral yet as advised. She does have some increased leg swelling. She is having trouble finding wearing compression garments. She has discomfort continued to her previous left lower leg ulcer site as well. She denies odor or redness. Her Kita brace on the left lower extremity is peeling and she is unable to get an update for several more years per her insurance regulations. Progress of Wound: Improving left lower leg ulcer. Stable right leg ulcers - Physical Exam Vital Signs Temp Pulse Resp BP 97.9 F 99 18 140/87 H 09/11/18 14:50 09/11/18 14:50 09/11/18 14:50 09/11/18 14:50 General: Alert, Oriented x3, Cooperative, No apparent distress Extremities: No cyanosis, Capillary Refill Less than 3 Seconds, No Calf Tenderness - Negative Elena and Briseno signs bilateral, Diminished Peripheral Pulses, Edema - Bilateral lower extremities moderate with hyperpigmentation Skin: Ulcer/ Wound - No purulence, erythema, streaking, odor, infection. Peripheral skin is atrophic Wound Measurements and Assessment WC - Nurse 1 - General Ulcer Measurement Start: 08/28/18 14:00 Freq: Status: Active Protocol: Activity Type Activity Date Activity User E-Sign Co-Sign Detail Recorded Client Recorded Date Recorded By Document 09/11/18 14:50 RB [id number] 09/11/18 15:06 RB 09/11/18 14:50 Wound Center Nurse 1 [Ulcer Assessment] #7 RIGHT LOWER PERRY -Combined with other wound No -Current Size (cm) - Length 1.5 -Current Size (cm) - Width 1.8 -Current Size (cm) - Depth 0.1 -Total Square Cm 2.70 -Tunneling No -Undermining/Tunneling No -Circular Undermining No -Exudate Amt Medium -Exudate Type Serosanguineous -Wound Margin Distinct, Outline Attached -Granulation Amt Large (67-100%) -Granulation Quality [place] -Slough/Fibrin Yes -Necrosis Amt Small (1-33%) -Necrotic Tissue Type Adherent Slough -Structure Exposed N/A -Texture (Meg-wound Skin Appearance) Assessed -Moisture (Meg-wound Skin Appearance Assessed ) -Color (Meg-wound Skin Appearance) Hemosiderin Staining -Temperature (Meg-wound Skin No Abnormality Appearance) (Pt Warm) -Tenderness on Palpation (Meg-wound No Skin Appearance) -Ulcer Cleansing Wound Cleanser -Foul Odor after Cleansing No -Anesthetic Used 5% Lidocaine Gel #6 RIGHT LATERAL LE -Combined with other wound No -Current Size (cm) - Length 6.6 -Current Size (cm) - Width 1 -Current Size (cm) - Depth 0.1 -Total Square Cm 6.6 -Tunneling No -Undermining/Tunneling No -Circular Undermining No -Exudate Amt Large -Exudate Type Serosanguineous -Wound Margin Distinct, Outline Attached -Granulation Amt Medium (34-66%) -Granulation Quality [place] -Slough/Fibrin Yes -Necrosis Amt Small (1-33%) -Necrotic Tissue Type Adherent Slough -Structure Exposed N/A -Texture (Meg-wound Skin Appearance) Assessed -Moisture (Meg-wound Skin Appearance Assessed ) -Color (Meg-wound Skin Appearance) Assessed Hemosiderin Staining -Temperature (Meg-wound Skin No Abnormality Appearance) (Pt Warm) -Tenderness on Palpation (Meg-wound No Skin Appearance) -Ulcer Cleansing Wound Cleanser -Foul Odor after Cleansing No -Anesthetic Used 5% Lidocaine Gel #5 L Heel -Combined with other wound No -Current Size (cm) - Length 9 -Current Size (cm) - Width 1 -Current Size (cm) - Depth 0.1 -Total Square Cm 9 -Tunneling No -Undermining/Tunneling No -Circular Undermining No -Exudate Amt Medium -Exudate Type Serosanguineous -Wound Margin Distinct, Outline Attached -Granulation Amt Medium (34-66%) -Granulation Quality [place] -Slough/Fibrin Yes -Necrosis Amt Medium (34-66%) -Necrotic Tissue Type Adherent Slough -Structure Exposed N/A -Texture (Meg-wound Skin Appearance) Assessed Callus -Moisture (Meg-wound Skin Appearance Maceration ) -Color (Meg-wound Skin Appearance) Assessed -Temperature (Meg-wound Skin No Abnormality Appearance) (Pt Warm) -Tenderness on Palpation (Meg-wound No Skin Appearance) -Ulcer Cleansing Wound Cleanser -Foul Odor after Cleansing No -Anesthetic Used 5% Lidocaine Gel [Edema Assessment] -Lower Limb Edema Present Yes -Right Calf (cm) 61.5 -Right Ankle (cm) 34 -Point of measurement (cm from the 50.5 medial instep) -Point of Measurement (cm from the 31 medial instep) WC - Nurse 2 - General Ulcer CM Notes Start: 08/28/18 14:00 Freq: Status: Active Protocol: Activity Type Activity Date Activity User E-Sign Co-Sign Detail Recorded Client Recorded Date Recorded By Document 09/11/18 15:32 AN [id number] 09/11/18 15:35 AN 09/11/18 15:32 Wound Center Nurse 2 [Procedure/Treatment] #7 RIGHT LOWER PERRY -Time 15:33 -Correct Patient Yes -Correct Side, Site, Position Yes -Correct Procedure Yes -Procedure Performed Yes -Type of Procedure Debridement -Clinical Debridement Subcutaneous -Post Debridement Size (cm) - Length 1.6 -Post Debridement Size (cm) - Width 1.9 -Post Debridement Size (cm) - Depth 0.1 -Total Square Cm 3.04 -Wound/Ulcer Outcome Not Healed -Ulcer Cleansing Rinsed/ Irrigated with Saline -Bleeding Controlled with Pressure -Treatment Response Procedure Tolerated Well #6 RIGHT LATERAL LE -Time 15:34 -Correct Patient Yes -Correct Side, Site, Position Yes -Correct Procedure Yes -Procedure Performed Yes -Type of Procedure Debridement -Clinical Debridement Subcutaneous -Post Debridement Size (cm) - Length 6.7 -Post Debridement Size (cm) - Width 1.1 -Post Debridement Size (cm) - Depth 0.1 -Total Square Cm 7.37 -Wound/Ulcer Outcome Not Healed -Treatment Response Procedure Tolerated Well #5 L Heel -Time 15:34 -Correct Patient Yes -Correct Side, Site, Position Yes -Correct Procedure Yes -Procedure Performed Yes -Type of Procedure Debridement -Clinical Debridement Subcutaneous -Post Debridement Size (cm) - Length 9.1 -Post Debridement Size (cm) - Width 1.1 -Post Debridement Size (cm) - Depth 0.1 -Total Square Cm 10.01 -Wound/Ulcer Outcome Not Healed -Bleeding Controlled with Pressure -Offloading Yes -Treatment Response Procedure Tolerated Well [See Physician Procedure note for Specifics] Pain Scale: 0-10 Numeric [Pain] -Is Patient Pain Free? Yes Musculoskeletal: No Tenderness to Palpation of Joints or Extremities, Muscle Wasting Neurological: - - Lack of normal epicritic sensation light touch consistent with neuropathy bilateral Psych/Mental Status: Normal Affect, Appropriate Debridement Note Post-Debridement Measurements/Treatment WC - Nurse 2 - General Ulcer CM Notes Start: 08/28/18 14:00 Freq: Status: Active Protocol: Activity Type Activity Date Activity User E-Sign Co-Sign Detail Recorded Client Recorded Date Recorded By Document 08/28/18 14:48 AN [id number] 08/28/18 14:53 AN Document 09/04/18 15:23 [id number] 09/04/18 15:27 JF Document 09/11/18 15:32 AN [id number] 09/11/18 15:35 AN 08/28/18 09/04/18 09/11/18 14:48 15:23 15:32 Wound Center Nurse 2 #7 RIGHT LOWER PERRY -Time 15:23 15:33 -Correct Patient Yes Yes -Correct Side, Site, Position Yes Yes -Correct Procedure Yes Yes -Procedure Performed Yes Yes -Type of Procedure Debridement Debridement -Clinical Debridement Subcutaneous Subcutaneous -Post Debridement Size (cm) - Length 1.1 1.6 -Post Debridement Size (cm) - Width 1.1 1.9 -Post Debridement Size (cm) - Depth 0.1 0.1 -Total Square Cm 1.21 3.04 -Wound/Ulcer Outcome Not Healed Not Healed -Ulcer Cleansing Rinsed/ Rinsed/ Irrigated with Irrigated with Saline Saline -Foul Odor after Cleansing No -Bioengineered Tissue No -Bleeding Controlled with Pressure Pressure -Offloading No -Treatment Response Procedure Procedure Tolerated Well Tolerated Well #6 RIGHT LATERAL LE -Time 15:24 15:34 -Correct Patient Yes Yes -Correct Side, Site, Position Yes Yes -Correct Procedure Yes Yes -Procedure Performed Yes Yes -Type of Procedure Debridement Debridement -Clinical Debridement Subcutaneous Subcutaneous -Post Debridement Size (cm) - Length 0.5 6.7 -Post Debridement Size (cm) - Width 1.3 1.1 -Post Debridement Size (cm) - Depth 0.1 0.1 -Total Square Cm 0.65 7.37 -Wound/Ulcer Outcome Not Healed Not Healed -Ulcer Cleansing Rinsed/ Irrigated with Saline -Foul Odor after Cleansing No -Bioengineered Tissue No -Bleeding Controlled with Pressure -Offloading No -Treatment Response Procedure Procedure Tolerated Well Tolerated Well #5 L Heel -Time 14:52 15:24 15:34 -Correct Patient Yes Yes -Correct Side, Site, Position Yes Yes -Correct Procedure Yes Yes -Procedure Performed Yes Yes -Type of Procedure Debridement Debridement -Clinical Debridement Selective Subcutaneous -Post Debridement Size (cm) - Length 3 0.1 9.1 -Post Debridement Size (cm) - Width 9.4 0.4 1.1 -Post Debridement Size (cm) - Depth 0.1 0.1 0.1 -Total Square Cm 28.2 0.04 10.01 -Wound/Ulcer Outcome Not Healed Not Healed Not Healed -Ulcer Cleansing Rinsed/ Rinsed/ Irrigated with Irrigated with Saline Saline -Foul Odor after Cleansing No No -Bioengineered Tissue No -Bleeding Controlled with Pressure Pressure Pressure -Offloading Yes No Yes -Type of Offloading Surgical Shoe -Treatment Response Procedure Procedure Procedure Tolerated Well Tolerated Well Tolerated Well Pain Scale: 0-10 Numeric Is Patient Pain Free? Yes Yes Wound debrided: distal leg Laterality: Right Type of Debridement: Excisional debridement Anesthesia Used: 5% Lidocaine Gel Depth: in the subcutaneous layer Percentage of wound debrided: 100 Instrument Used: #15 blade Tissue Removed: fibrous, devitalized subcutaneous, biofilm, slough Severity: Fat Layer Exposed Amount of bleeding with debridement: Mild Bleeding Controlled with: Pressure Patient tolerated procedure well - Additional Wound Wound debrided: proximal leg Laterality: Right Type of Debridement: Excisional debridement Anesthesia Used: 5% Lidocaine Gel Depth: in the subcutaneous layer Percentage of wound debrided: 100 Instrument Used: #15 blade Tissue Removed: fibrous, devitalized subcutaneous, biofilm, slough Severity: Fat Layer Exposed Amount of bleeding with debridement: Mild Bleeding Controlled with: Pressure Patient tolerated procedure: Patient tolerated procedure well Assessment/Plan Active Problems Bilateral lower extremity edema (Chronic) Left foot pain (Chronic) Chronic ulcer of left foot with fat layer exposed (Chronic) Ulcer of right lower extremity with fat layer exposed (Chronic) Ulcer of left lower extremity with fat layer exposed (Chronic) Delayed wound healing (Acute) 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 Left lower leg ulcers. Bilateral venous insufficiency. Morbid obesity. No infection today Plan: Ms. Carter presents with significant maceration and ulcer of the left posterior foot. Debridement done as documented above, procedure was well- tolerated. To change dressing daily with [employer]. She reports as stated above copious drainage/discharge. Aashish wraps for edema management. Other more aggressive compression will be considered. Prescriptions for [place] wraps were provided for bilateral lower extremities and prior authorization is pending. This is medically necessary for limb salvage. She is failed other conservative care for this edema and venous insufficiency treatment such as compression stockings elevation and muscle contraction. Advised to elevate lower extremities when seated in bed. To avoid idle standing or sitting. To elevate legs at rest. Increase protein intake also recommended. A prescription for [employer] [place] was provided she was advised on safe and proper use. I also recommended a nutrition referral for weight management and to optimize wound healing. I do not appreciate any signs of infection she was reassured. To better offload the site by using a donut offloading pillow. Her labs were updated without leukocytosis or other gross abnormalities. Her prealbumin was low at 16.9 and an albumin of 3.0. It is noted she had venous insufficiency with left greater saphenous vein from a study performed in 2017. Recommend follow-up with the vascular surgery to see if intervention is possible. It is also noted she had good arterial flow with studies performed in December 2017 with normal ABIs and triphasic waveforms. All her questions were answered and she was advised to call with any further questions or concerns. Follow-up in 1 week.
[2018-09-18 14:41] VITALS: BP 151/83; PULSE 95; RESP 18; TEMP 36.5; BMI 58.1
--- NOTE | 2018-09-18 16:39 | PCM.WC.PN ---
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 Status: Chronic Current Visit: Yes Code(s): I83.223 - 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 (6) Venous insufficiency of both lower extremities Status: Chronic Current Visit: Yes Code(s): I87.2 - Venous insufficiency (chronic) (peripheral) (7) Malnutrition Status: Chronic Current Visit: Yes Code(s): E46 - Unspecified protein-calorie malnutrition (8) Pain of left lower extremity Status: Chronic Current Visit: Yes Code(s): M79.605 - Pain in left leg (9) Morbid obesity Status: Chronic Current Visit: Yes Code(s): E66.01 - Morbid (severe) obesity due to excess calories (10) Delayed wound healing Status: Chronic Current Visit: Yes Code(s): T14.8XXD - Other injury of unspecified body region, subsequent encounter Type of Wound Date of Service: 09/18/18 Chief Complaint: Nonhealing left foot ulcer and maceration. right leg ulcers History of Wound: This 43-year-old female returns to clinic for left foot ulcer with continued drainage. She tries to wear compression and admits she is not able to perform her own. Her mother helps her when she is available. She did not follow-up with the company with her compression garments were ordered from as advised. She denies fever, chill, nausea, vomiting. She notes that her nutrition referral yet as advised. She denies odor or redness. Her Kita brace on the left lower extremity is peeling in the moleskin that was applied last week did not last. She is interested in getting an updated brace or heaviness on modified. Progress of Wound: Improving left lower leg ulcer. Stable right leg ulcers - Physical Exam Vital Signs Temp Pulse Resp BP 97.7 F L 95 18 151/83 H 09/18/18 14:41 09/18/18 14:41 09/18/18 14:41 09/18/18 14:41 General: Alert, Oriented x3, Cooperative HEENT: Atraumatic Extremities: No cyanosis, Capillary Refill Less than 3 Seconds, No Calf Tenderness - Negative Elena and Briseno sign bilateral. Compartments remain soft to palpate bilateral, Diminished Peripheral Pulses, Edema - Bilateral lower extremities right more notable than left, - - Previous clubfoot surgical reconstruction noted with bilateral lower extremities in rectus position. There is some invagination of the posterior heel rim on the left lower extremity adjacent to the sub-hemorrhagic and slow weeping aspect. Skin: Ulcer/ Wound - No purulence, erythema, streaking, odor, infection. Some hemorrhagic tissue exposure noted on the left side and subcutaneous tissues exposing the right anterior lower leg ulcer site. No deep tissue noted or necrosis bilateral Wound Measurements and Assessment WC - Nurse 1 - General Ulcer Measurement Start: 08/28/18 14:00 Freq: Status: Active Protocol: Activity Type Activity Date Activity User E-Sign Co-Sign Detail Recorded Client Recorded Date Recorded By Document 09/18/18 14:41 OH [id number] 09/18/18 14:48 OH 09/18/18 14:41 Wound Center Nurse 1 [Ulcer Assessment] #7 RIGHT LOWER PERRY -Current Size (cm) - Length 3.7 -Current Size (cm) - Width 2.5 -Current Size (cm) - Depth 0.1 -Total Square Cm 9.25 -Exudate Amt Medium -Exudate Type Serosanguineous -Wound Margin Flat & Intact -Granulation Amt Small (1-33%) -Granulation Quality Pale [facility] -Necrosis Amt Large (67-100%) -Necrotic Tissue Type Adherent Slough -Texture (Meg-wound Skin Appearance) Assessed Localized Edema -Moisture (Meg-wound Skin Appearance Assessed ) -Color (Meg-wound Skin Appearance) Assessed Erythema -Temperature (Meg-wound Skin No Abnormality Appearance) (Pt Warm) -Tenderness on Palpation (Meg-wound No Skin Appearance) -Ulcer Cleansing Rinsed/ Irrigated with Saline -Anesthetic Used 4% Lidocaine Solution #6 RIGHT LATERAL LE -Current Size (cm) - Length 3 -Current Size (cm) - Width 1 -Current Size (cm) - Depth 0.1 -Total Square Cm 3 -Exudate Amt Medium -Exudate Type Serosanguineous -Wound Margin Flat & Intact -Granulation Amt Medium (34-66%) -Granulation Quality Pale [facility] -Necrosis Amt Small (1-33%) -Necrotic Tissue Type Adherent Slough -Texture (Meg-wound Skin Appearance) Assessed Localized Edema -Moisture (Meg-wound Skin Appearance Assessed ) Weeping -Color (Meg-wound Skin Appearance) Assessed Erythema Hemosiderin Staining -Temperature (Meg-wound Skin No Abnormality Appearance) (Pt Warm) -Tenderness on Palpation (Meg-wound No Skin Appearance) -Ulcer Cleansing Rinsed/ Irrigated with Saline -Foul Odor after Cleansing No -Anesthetic Used 4% Lidocaine Solution #5 L Heel -Current Size (cm) - Length 1.0 -Current Size (cm) - Width 8 -Current Size (cm) - Depth 0.2 -Total Square Cm 8.0 -Exudate Amt None Present -Granulation Amt Large (67-100%) -Granulation Quality Pale [facility] -Necrosis Amt None Present (0 %) -Texture (Meg-wound Skin Appearance) Assessed Localized Edema -Moisture (Meg-wound Skin Appearance Assessed ) Maceration -Color (Meg-wound Skin Appearance) Assessed -Temperature (Meg-wound Skin No Abnormality Appearance) (Pt Warm) -Tenderness on Palpation (Meg-wound No Skin Appearance) -Ulcer Cleansing Rinsed/ Irrigated with Saline -Foul Odor after Cleansing No -Anesthetic Used 4% Lidocaine Solution [Edema Assessment] -Right Calf (cm) 61 -Right Ankle (cm) 34 -Left Calf (cm) 49 -Left Ankle (cm) 32.5 WC - Nurse 2 - General Ulcer CM Notes Start: 08/28/18 14:00 Freq: Status: Active Protocol: Activity Type Activity Date Activity User E-Sign Co-Sign Detail Recorded Client Recorded Date Recorded By Document 09/18/18 15:38 AN [id number] 09/18/18 15:43 AN 09/18/18 15:38 Wound Center Nurse 2 [Procedure/Treatment] #7 RIGHT LOWER PERRY -Time 15:42 -Correct Patient Yes -Correct Side, Site, Position Yes -Correct Procedure Yes -Procedure Performed Yes -Type of Procedure Debridement -Clinical Debridement Subcutaneous -Post Debridement Size (cm) - Length 3.8 -Post Debridement Size (cm) - Width 2.6 -Post Debridement Size (cm) - Depth 0.1 -Total Square Cm 9.88 -Bleeding Controlled with Pressure -Treatment Response Procedure Tolerated Well #6 RIGHT LATERAL LE -Time 15:42 -Correct Patient Yes -Correct Side, Site, Position Yes -Correct Procedure Yes -Procedure Performed Yes -Type of Procedure Debridement -Clinical Debridement Subcutaneous -Post Debridement Size (cm) - Length 3.1 -Post Debridement Size (cm) - Width 1.1 -Post Debridement Size (cm) - Depth 0.1 -Total Square Cm 3.41 -Wound/Ulcer Outcome Not Healed -Bleeding Controlled with Pressure -Treatment Response Procedure Tolerated Well #5 L Heel -Time 15:42 -Correct Patient Yes -Correct Side, Site, Position Yes -Correct Procedure Yes -Procedure Performed No -Post Debridement Size (cm) - Length 1.1 -Post Debridement Size (cm) - Width 8.1 -Post Debridement Size (cm) - Depth 0.2 -Total Square Cm 8.91 -Treatment Response Procedure Tolerated Well [See Physician Procedure note for Specifics] Pain Scale: 0-10 Numeric [Pain] -Is Patient Pain Free? Yes Musculoskeletal: No Tenderness to Palpation of Joints or Extremities, Muscle Wasting Neurological: Sensory exam intact to light touch and pain, - Psych/Mental Status: Normal Affect, Appropriate Debridement Note Post-Debridement Measurements/Treatment WC - Nurse 2 - General Ulcer CM Notes Start: 08/28/18 14:00 Freq: Status: Active Protocol: Activity Type Activity Date Activity User E-Sign Co-Sign Detail Recorded Client Recorded Date Recorded By Document 08/28/18 14:48 AN [id number] 08/28/18 14:53 AN Document 09/04/18 15:23 [id number] 09/04/18 15:27 Document 09/11/18 15:32 AN [id number] 09/11/18 15:35 AN Document 09/18/18 15:38 AN [id number] 09/18/18 15:43 AN 08/28/18 09/04/18 09/11/18 14:48 15:23 15:32 Wound Center Nurse 2 #7 RIGHT LOWER PERRY -Time 15:23 15:33 -Correct Patient Yes Yes -Correct Side, Site, Position Yes Yes -Correct Procedure Yes Yes -Procedure Performed Yes Yes -Type of Procedure Debridement Debridement -Clinical Debridement Subcutaneous Subcutaneous -Post Debridement Size (cm) - Length 1.1 1.6 -Post Debridement Size (cm) - Width 1.1 1.9 -Post Debridement Size (cm) - Depth 0.1 0.1 -Total Square Cm 1.21 3.04 -Wound/Ulcer Outcome Not Healed Not Healed -Ulcer Cleansing Rinsed/ Rinsed/ Irrigated with Irrigated with Saline Saline -Foul Odor after Cleansing No -Bioengineered Tissue No -Bleeding Controlled with Pressure Pressure -Offloading No -Treatment Response Procedure Procedure Tolerated Well Tolerated Well #6 RIGHT LATERAL LE -Time 15:24 15:34 -Correct Patient Yes Yes -Correct Side, Site, Position Yes Yes -Correct Procedure Yes Yes -Procedure Performed Yes Yes -Type of Procedure Debridement Debridement -Clinical Debridement Subcutaneous Subcutaneous -Post Debridement Size (cm) - Length 0.5 6.7 -Post Debridement Size (cm) - Width 1.3 1.1 -Post Debridement Size (cm) - Depth 0.1 0.1 -Total Square Cm 0.65 7.37 -Wound/Ulcer Outcome Not Healed Not Healed -Ulcer Cleansing Rinsed/ Irrigated with Saline -Foul Odor after Cleansing No -Bioengineered Tissue No -Bleeding Controlled with Pressure -Offloading No -Treatment Response Procedure Procedure Tolerated Well Tolerated Well #5 L Heel -Time 14:52 15:24 15:34 -Correct Patient Yes Yes -Correct Side, Site, Position Yes Yes -Correct Procedure Yes Yes -Procedure Performed Yes Yes -Type of Procedure Debridement Debridement -Clinical Debridement Selective Subcutaneous -Post Debridement Size (cm) - Length 3 0.1 9.1 -Post Debridement Size (cm) - Width 9.4 0.4 1.1 -Post Debridement Size (cm) - Depth 0.1 0.1 0.1 -Total Square Cm 28.2 0.04 10.01 -Wound/Ulcer Outcome Not Healed Not Healed Not Healed -Ulcer Cleansing Rinsed/ Rinsed/ Irrigated with Irrigated with Saline Saline -Foul Odor after Cleansing No No -Bioengineered Tissue No -Bleeding Controlled with Pressure Pressure Pressure -Offloading Yes No Yes -Type of Offloading Surgical Shoe -Treatment Response Procedure Procedure Procedure Tolerated Well Tolerated Well Tolerated Well Pain Scale: 0-10 Numeric Is Patient Pain Free? Yes Yes 09/18/18 15:38 Wound Center Nurse 2 #7 RIGHT LOWER PERRY -Time 15:42 -Correct Patient Yes -Correct Side, Site, Position Yes -Correct Procedure Yes -Procedure Performed Yes -Type of Procedure Debridement -Clinical Debridement Subcutaneous -Post Debridement Size (cm) - Length 3.8 -Post Debridement Size (cm) - Width 2.6 -Post Debridement Size (cm) - Depth 0.1 -Total Square Cm 9.88 -Wound/Ulcer Outcome -Ulcer Cleansing -Foul Odor after Cleansing -Bioengineered Tissue -Bleeding Controlled with Pressure -Offloading -Treatment Response Procedure Tolerated Well #6 RIGHT LATERAL LE -Time 15:42 -Correct Patient Yes -Correct Side, Site, Position Yes -Correct Procedure Yes -Procedure Performed Yes -Type of Procedure Debridement -Clinical Debridement Subcutaneous -Post Debridement Size (cm) - Length 3.1 -Post Debridement Size (cm) - Width 1.1 -Post Debridement Size (cm) - Depth 0.1 -Total Square Cm 3.41 -Wound/Ulcer Outcome Not Healed -Ulcer Cleansing -Foul Odor after Cleansing -Bioengineered Tissue -Bleeding Controlled with Pressure -Offloading -Treatment Response Procedure Tolerated Well #5 L Heel -Time 15:42 -Correct Patient Yes -Correct Side, Site, Position Yes -Correct Procedure Yes -Procedure Performed No -Type of Procedure -Clinical Debridement -Post Debridement Size (cm) - Length 1.1 -Post Debridement Size (cm) - Width 8.1 -Post Debridement Size (cm) - Depth 0.2 -Total Square Cm 8.91 -Wound/Ulcer Outcome -Ulcer Cleansing -Foul Odor after Cleansing -Bioengineered Tissue -Bleeding Controlled with -Offloading -Type of Offloading -Treatment Response Procedure Tolerated Well Pain Scale: 0-10 Numeric Is Patient Pain Free? Yes Wound debrided: anterior lower leg Laterality: Right Type of Debridement: Excisional debridement Anesthesia Used: 5% Lidocaine Gel Depth: in the subcutaneous layer Percentage of wound debrided: 100 Instrument Used: #15 blade Tissue Removed: fibrous, devitalized subcutaneous, biofilm, slough Severity: Fat Layer Exposed Amount of bleeding with debridement: Mild Bleeding Controlled with: Pressure Patient tolerated procedure well Assessment/Plan Active Problems Bilateral lower extremity edema (Chronic) Left foot pain (Chronic) Chronic ulcer of left foot with fat layer exposed (Chronic) Ulcer of right lower extremity with fat layer exposed (Chronic) Ulcer of left lower extremity with fat layer exposed (Chronic) Malnutrition (Chronic) Delayed wound healing (Chronic) 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 Left lower leg ulcers. Bilateral venous insufficiency. Morbid obesity. No infection today. Malnutrition suspected. Leg contracture left. Walking difficulty. Left ankle and foot pain. Posterior tibialis tendon dysfunction left Plan: Ms. Carter presents with continued low-grade weeping. Debridement was not performed at this site and ulcer of the left posterior foot today. She also returns for follow-up of the right anterior lower leg ulcer and debridement was done as documented above, procedure was well-tolerated. To change dressing daily with [employer]. She reports as stated above copious drainage/discharge. Aashish wraps for edema management. Other more aggressive compression will be considered. Prescriptions for [place] wraps were provided for bilateral lower extremities and prior authorization is pending. This is medically necessary for limb salvage. She already has compression stockings that she reports she can only get on her left lower extremity. She cannot do this on her own. I encouraged her to try with a donning device and a prescription was provided. She is failed other conservative care for this edema and venous insufficiency treatment such as compression stockings elevation and muscle contraction. Advised to elevate lower extremities when seated in bed. To avoid idle standing or sitting. To elevate legs at rest. Increase protein intake also recommended. A prescription for [employer] was provided she was advised on safe and proper use. I also recommended a nutrition referral for weight management and to optimize wound healing. I do not appreciate any signs of infection she was reassured. To better offload the site by using a donut offloading pillow. Her labs were updated without leukocytosis or other gross abnormalities. Her prealbumin was low at 16.9 and an albumin of 3.0. It is noted she had venous insufficiency with left greater saphenous vein from a study performed in 2018. Recommend follow-up with the vascular surgery to see if intervention is possible. It is also noted she had good arterial flow with studies performed in December 2017 with normal ABIs and triphasic waveforms. Her deformity and pain is noted with ambulation and seated to the left ankle which is consistent with flatfoot deformity secondary to posterior tibialis tendon dysfunction and previous surgical correction sequela. I recommended an updated non-articulating ankle-foot orthotic that is shorter in nature to accommodate her leg swelling and pain. This is medically necessary. As noted she is walking difficulty and has had good success with her previous brace. She is having difficulty wearing her current brace because it is worn down and the inner lining is also fraying and cutting into her skin. We tried to re-fabricate this with moleskin which did not last. I advised her to trim this back or have this refurbished which she is not able to do at this time. I will see if she qualifies for an updated brace she will be notified once this is approved if it is covered at this time. All her questions were answered and she was advised to call with any further questions or concerns. Follow-up in 1 week.
== END 2018-09-20 23:59 ==
LOC: WC 14:30
PROVIDERS: Visit Provider Internal Medicine
DX: I87.2 Venous insufficiency (chronic) (peripheral) (principal); I73.9 Peripheral vascular disease, unspecified; L97.422 Non-pressure chronic ulcer of left heel and midfoot with fat layer exposed; R60.0 Localized edema; M79.672 Pain in left foot; E66.01 Morbid (severe) obesity due to excess calories; Z68.43 Body mass index [BMI] 50.0-59.9, adult; Z71.3 Dietary counseling and surveillance; L97.812 Non-pressure chronic ulcer of other part of right lower leg with fat layer exposed
CPT/HCPCS: 11042; 80053; 84134; 85025

== ENCOUNTER 2018-10-16 15:00 | Outpatient (RCR) | payer MEDICARE, MEDICAID, SELFPAY ==
[2018-09-21 01:12] VITALS: BP 151/83; PULSE 95; RESP 18; TEMP 36.5
[2018-09-25 14:39] VITALS: BP 136/78; PULSE 79; RESP 20; TEMP 36.6; BMI 58.1
--- NOTE | 2018-09-25 17:25 | PCM.WC.PN ---
(1) Ulcer of right lower extremity with fat layer exposed Status: Chronic Current Visit: Yes Code(s): L97.912 - Non-pressure chronic ulcer of unspecified part of right lower leg with fat layer exposed (2) Lymphedema Status: Chronic Current Visit: Yes Code(s): I89.0 - Lymphedema, not elsewhere classified (3) Ulcer of left lower extremity, limited to breakdown of skin Status: Chronic Current Visit: Yes Code(s): L97.921 - Non-pressure chronic ulcer of unspecified part of left lower leg limited to breakdown of skin (4) Bilateral lower extremity edema Status: Chronic Current Visit: Yes Code(s): R60.0 - Localized edema (5) Malnutrition Status: Chronic Current Visit: Yes Code(s): E46 - Unspecified protein-calorie malnutrition (6) Delayed wound healing Status: Chronic Current Visit: Yes Code(s): T14.8XXD - Other injury of unspecified body region, subsequent encounter (7) 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 Status: Chronic Current Visit: Yes Code(s): I83.223 - 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 (8) Varicose veins of right lower extremity with both ulcer of calf and inflammation Status: Chronic Current Visit: Yes Code(s): I83.212 - Varicose veins of right lower extremity with both ulcer of calf and inflammation (9) Venous insufficiency of both lower extremities Status: Chronic Current Visit: Yes Code(s): I87.2 - Venous insufficiency (chronic) (peripheral) (10) Morbid obesity Status: Chronic Current Visit: Yes Code(s): E66.01 - Morbid (severe) obesity due to excess calories (11) Other acquired deformities of left foot Status: Chronic Current Visit: Yes Code(s): M21.6X2 - Other acquired deformities of left foot (12) Walking difficulty due to ankle and foot Status: Chronic Current Visit: Yes Code(s): R26.2 - Difficulty in walking, not elsewhere classified (13) Left ankle pain Status: Chronic Current Visit: Yes Code(s): M25.572 - Pain in left ankle and joints of left foot Type of Wound Date of Service: 09/25/18 Chief Complaint: Nonhealing left foot ulcer and maceration. right leg ulcers History of Wound: This 43-year-old female returns to clinic for left foot ulcer with continued drainage. She tries to wear compression and admits she is not able to perform her own. Her mother helps her when she is available. She did not follow-up with the company with her compression garments were ordered from as advised still at this time. She denies fever, chill, nausea, vomiting. She notes that her nutrition referral yet as advised. She denies odor or redness. She was [facility] today for an updated left [employer] brace. Progress of Wound: improving left lower leg ulcer. Stable right leg ulcers - Physical Exam Vital Signs Temp Pulse Resp BP 97.8 F 79 20 H 136/78 H 09/25/18 14:39 09/25/18 14:39 09/25/18 14:39 09/25/18 14:39 General: Alert, Oriented x3, Cooperative, No apparent distress Extremities: No cyanosis, Capillary Refill Less than 3 Seconds, No Calf Tenderness - Negative Homans and Briseno sign bilateral, Diminished Peripheral Pulses, Edema - Right lower extremity more than left lower extremity, - - Compartments remain soft to palpate bilateral lower extremity Skin: Ulcer/ Wound - No purulence, no erythema, streaking, no odor, no infection, no deep tissue exposed bilateral. The peripheral skin is atrophic and hairless. There is no skin discontinuity noted on the left side there is just some moisture and some hemorrhagic tissue that is scant. There is no active drainage today to the left lower extremity Wound Measurements and Assessment WC - Nurse 1 - General Ulcer Measurement Start: 09/25/18 14:39 Freq: Status: Active Protocol: Activity Type Activity Date Activity User E-Sign Co-Sign Detail Recorded Client Recorded Date Recorded By Document 09/25/18 14:39 DL [id number] 09/25/18 14:53 DL 09/25/18 14:39 Wound Center Nurse 1 [Ulcer Assessment] #7 RIGHT LOWER SENIOR -Current Size (cm) - Length 8 -Current Size (cm) - Width 13.9 -Current Size (cm) - Depth 0.1 -Total Square Cm 111.2 -Photo Taken No -Exudate Amt Medium -Exudate Type Serosanguineous -Wound Margin Indistinct, Non -Visible -Granulation Amt Medium (34-66%) -Granulation Quality Red -Necrosis Amt Medium (34-66%) -Necrotic Tissue Type Adherent Slough -Structure Exposed N/A -Texture (Meg-wound Skin Appearance) Scarring -Moisture (Meg-wound Skin Appearance Dry/Scaly ) -Color (Meg-wound Skin Appearance) Hemosiderin Staining Rubor -Temperature (Meg-wound Skin No Abnormality Appearance) (Pt Warm) -Tenderness on Palpation (Meg-wound No Skin Appearance) -Ulcer Cleansing Wound Cleanser -Foul Odor after Cleansing No -Anesthetic Used 4% Lidocaine Solution 5% Lidocaine Gel #6 RIGHT LATERAL LE -Current Size (cm) - Length 0 -Current Size (cm) - Width 0 -Current Size (cm) - Depth 0 -Total Square Cm 0 -Photo Taken Yes -Exudate Amt None Present -Exudate Type Serosanguineous -Wound Margin Flat & Intact -Granulation Amt Large (67-100%) -Granulation Quality [place] -Necrosis Amt None Present (0 %) -Structure Exposed N/A -Texture (Meg-wound Skin Appearance) Scarring -Moisture (Meg-wound Skin Appearance No Abnormality ) -Color (Meg-wound Skin Appearance) No Abnormality -Temperature (Meg-wound Skin No Abnormality Appearance) (Pt Warm) -Tenderness on Palpation (Meg-wound No Skin Appearance) -Ulcer Cleansing Wound Cleanser -Foul Odor after Cleansing No #5 L Heel -Current Size (cm) - Length 0.1 -Current Size (cm) - Width 0.1 -Current Size (cm) - Depth 0.1 -Total Square Cm 0.01 -Photo Taken No -Exudate Amt None Present -Exudate Type Serosanguineous -Wound Margin Indistinct, Non -Visible -Granulation Amt Large (67-100%) -Granulation Quality [place] -Necrosis Amt None Present (0 %) -Structure Exposed N/A -Texture (Meg-wound Skin Appearance) Callus -Moisture (Meg-wound Skin Appearance Dry/Scaly ) -Color (Meg-wound Skin Appearance) No Abnormality -Temperature (Meg-wound Skin No Abnormality Appearance) (Pt Warm) -Tenderness on Palpation (Meg-wound No Skin Appearance) -Ulcer Cleansing Wound Cleanser -Foul Odor after Cleansing No -Anesthetic Used 4% Lidocaine Solution 5% Lidocaine Gel [Edema Assessment] -Right Calf (cm) 60.5 -Right Ankle (cm) 33.3 -Left Calf (cm) 48.5 -Left Ankle (cm) 30.1 WC - Nurse 2 - General Ulcer CM Notes Start: 09/25/18 14:39 Freq: Status: Active Protocol: Activity Type Activity Date Activity User E-Sign Co-Sign Detail Recorded Client Recorded Date Recorded By Document 09/25/18 15:46 AN [id number] 09/25/18 15:53 AN 09/25/18 15:46 Wound Center Nurse 2 [Procedure/Treatment] #7 RIGHT LOWER SENIOR -Time 15:47 -Correct Patient Yes -Correct Side, Site, Position Yes -Correct Procedure Yes -Procedure Performed Yes -Type of Procedure Debridement -Clinical Debridement Subcutaneous -Post Debridement Size (cm) - Length 8.1 -Post Debridement Size (cm) - Width 14 -Post Debridement Size (cm) - Depth 0.1 -Total Square Cm 113.4 -Wound/Ulcer Outcome Not Healed -Ulcer Cleansing Rinsed/ Irrigated with Saline -Foul Odor after Cleansing No -Bioengineered Tissue No -Bleeding Controlled with Pressure -Offloading No -Treatment Response Procedure Tolerated Well #6 RIGHT LATERAL LE -Time 15:50 -Correct Patient Yes -Correct Side, Site, Position Yes -Correct Procedure Yes -Procedure Performed Yes -Type of Procedure Debridement -Clinical Debridement Subcutaneous -Post Debridement Size (cm) - Length 0.1 -Post Debridement Size (cm) - Width 0.1 -Post Debridement Size (cm) - Depth 0.1 -Total Square Cm 0.01 -Wound/Ulcer Outcome Not Healed -Treatment Response Procedure Tolerated Well #5 L Heel -Time 15:51 -Correct Patient Yes -Correct Side, Site, Position Yes -Correct Procedure Yes -Procedure Performed Yes -Type of Procedure Debridement -Clinical Debridement Subcutaneous -Post Debridement Size (cm) - Length 0.1 -Post Debridement Size (cm) - Width 0.1 -Post Debridement Size (cm) - Depth 0.1 -Total Square Cm 0.01 -Wound/Ulcer Outcome Not Healed -Ulcer Cleansing Rinsed/ Irrigated with Saline -Foul Odor after Cleansing No -Bioengineered Tissue No [See Physician Procedure note for Specifics] Musculoskeletal: No Tenderness to Palpation of Joints or Extremities, Muscle Wasting Neurological: Sensory exam intact to light touch and pain Psych/Mental Status: Normal Affect, Appropriate Debridement Note Post-Debridement Measurements/Treatment WC - Nurse 2 - General Ulcer CM Notes Start: 09/25/18 14:39 Freq: Status: Active Protocol: Activity Type Activity Date Activity User E-Sign Co-Sign Detail Recorded Client Recorded Date Recorded By Document 09/25/18 15:46 AN [id number] 09/25/18 15:53 AN 09/25/18 15:46 Wound Center Nurse 2 #7 RIGHT LOWER SENIOR -Time 15:47 -Correct Patient Yes -Correct Side, Site, Position Yes -Correct Procedure Yes -Procedure Performed Yes -Type of Procedure Debridement -Clinical Debridement Subcutaneous -Post Debridement Size (cm) - Length 8.1 -Post Debridement Size (cm) - Width 14 -Post Debridement Size (cm) - Depth 0.1 -Total Square Cm 113.4 -Wound/Ulcer Outcome Not Healed -Ulcer Cleansing Rinsed/ Irrigated with Saline -Foul Odor after Cleansing No -Bioengineered Tissue No -Bleeding Controlled with Pressure -Offloading No -Treatment Response Procedure Tolerated Well #6 RIGHT LATERAL LE -Time 15:50 -Correct Patient Yes -Correct Side, Site, Position Yes -Correct Procedure Yes -Procedure Performed Yes -Type of Procedure Debridement -Clinical Debridement Subcutaneous -Post Debridement Size (cm) - Length 0.1 -Post Debridement Size (cm) - Width 0.1 -Post Debridement Size (cm) - Depth 0.1 -Total Square Cm 0.01 -Wound/Ulcer Outcome Not Healed -Treatment Response Procedure Tolerated Well #5 L Heel -Time 15:51 -Correct Patient Yes -Correct Side, Site, Position Yes -Correct Procedure Yes -Procedure Performed Yes -Type of Procedure Debridement -Clinical Debridement Subcutaneous -Post Debridement Size (cm) - Length 0.1 -Post Debridement Size (cm) - Width 0.1 -Post Debridement Size (cm) - Depth 0.1 -Total Square Cm 0.01 -Wound/Ulcer Outcome Not Healed -Ulcer Cleansing Rinsed/ Irrigated with Saline -Foul Odor after Cleansing No -Bioengineered Tissue No Wound debrided: lower senior Laterality: Right Type of Debridement: Excisional debridement Anesthesia Used: 5% Lidocaine Gel Depth: in the subcutaneous layer Percentage of wound debrided: 100 Instrument Used: #15 blade Tissue Removed: fibrous, devitalized subcutaneous, biofilm, slough Severity: Fat Layer Exposed Amount of bleeding with debridement: Mild Bleeding Controlled with: Pressure Patient tolerated procedure well - Additional Wound Wound debrided: lateral leg Laterality: Right Type of Debridement: Excisional debridement Anesthesia Used: 5% Lidocaine Gel Depth: in the subcutaneous layer Percentage of wound debrided: 100 Instrument Used: #15 blade Tissue Removed: fibrous, devitalized subcutaneous, biofilm, slough Severity: Fat Layer Exposed Amount of bleeding with debridement: Mild Bleeding Controlled with: Pressure Patient tolerated procedure: Patient tolerated procedure well Assessment/Plan Active Problems Bilateral lower extremity edema (Chronic) Ulcer of right lower extremity with fat layer exposed (Chronic) Malnutrition (Chronic) Delayed wound healing (Chronic) Lymphedema (Chronic) Ulcer of left lower extremity, limited to breakdown of skin (Chronic) Other acquired deformities of left foot (Chronic) Walking difficulty due to ankle and foot (Chronic) Left ankle pain (Chronic) 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 Left lower leg ulcers. Bilateral venous insufficiency. Lymphedema. Morbid obesity. No infection today. Malnutrition suspected. Leg contracture left. Walking difficulty. Left ankle and foot pain. Posterior tibialis tendon dysfunction left Plan: Ms. Carter presents for follow-up of bilateral lower extremity ulcers. Debridement was not performed at this left site and the ulcer of the right lower extremities were performed. It left if healing is noted on the right lower extremity for over 1 month, and advance wound healing product will be considered. This will be monitored closely. In the meantime, she was advised to change dressing daily with [employer] She reports as stated above copious drainage/discharge. Aashish wraps for edema management. Other more aggressive compression will be considered. Prescriptions for [place] wraps (via [employer]) were provided for bilateral lower extremities and prior authorization is pending. This is medically necessary for limb salvage. She already has compression stockings that she reports she can only get on her left lower extremity. She cannot do this on her own. The [employer] phone number was provided again today and she was advised to follow-up on in addition to our nursing staff as well. She is failed other conservative care for this edema and venous insufficiency treatment such as compression stockings elevation and muscle contraction. Advised to elevate lower extremities when seated in bed. To avoid idle standing or sitting. To elevate legs at rest. She also appears to have lymphedema and I recommended compression pumps; this will be ordered today as well. The indications and anticipated use was reviewed. Increase protein intake also recommended. A prescription for [employer] was provided previously. I also recommended a nutrition referral for weight management and to optimize wound healing. I do not appreciate any signs of infection she was reassured. To better offload the site by using a donut offloading pillow. Her labs were updated without leukocytosis or other gross abnormalities. Her prealbumin was low at 16.9 and an albumin of 3.0. It is noted she had venous insufficiency with left greater saphenous vein from a study performed in 2018. Recommend follow-up with the vascular surgery to see if intervention is possible. It is also noted she had good arterial flow with studies performed in December 2017 with normal ABIs and triphasic waveforms. Her deformity and pain is noted with ambulation and seated to the left ankle which is consistent with flatfoot deformity secondary to posterior tibialis tendon dysfunction and previous surgical correction sequela. I recommended an updated non-articulating ankle-foot orthotic that is shorter in nature to accommodate her leg swelling and pain. This is medically necessary. As noted she is walking difficulty and has had good success with her previous brace. She is having difficulty wearing her current brace because it is worn down and the inner lining is also fraying and cutting into her skin. Prior authorization was performed and she was casted at the foot and ankle Center today according to standard protocol. She will be called when the device arrives. All her questions were answered and she was advised to call with any further questions or concerns. Follow-up in 2 weeks.
[2018-10-01 16:44] VITALS: BP 149/85; PULSE 93; RESP 18; TEMP 36.3; BMI 58.1
[2018-10-09 15:10] VITALS: BP 146/98; PULSE 94; RESP 18; TEMP 36.4; BMI 58.1
--- NOTE | 2018-10-09 16:55 | PCM.WC.PN ---
(1) Ulcer of right lower extremity with fat layer exposed Status: Chronic Current Visit: Yes Code(s): L97.912 - Non-pressure chronic ulcer of unspecified part of right lower leg with fat layer exposed (2) Lymphedema Status: Chronic Current Visit: Yes Code(s): I89.0 - Lymphedema, not elsewhere classified (3) Ulcer of left lower extremity, limited to breakdown of skin Status: Chronic Current Visit: Yes Code(s): L97.921 - Non-pressure chronic ulcer of unspecified part of left lower leg limited to breakdown of skin (4) Bilateral lower extremity edema Status: Chronic Current Visit: Yes Code(s): R60.0 - Localized edema (5) Malnutrition Status: Chronic Current Visit: Yes Code(s): E46 - Unspecified protein-calorie malnutrition (6) Delayed wound healing Status: Chronic Current Visit: Yes Code(s): T14.8XXD - Other injury of unspecified body region, subsequent encounter (7) 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 Status: Chronic Current Visit: Yes Code(s): I83.223 - 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 (8) Varicose veins of right lower extremity with both ulcer of calf and inflammation Status: Chronic Current Visit: Yes Code(s): I83.212 - Varicose veins of right lower extremity with both ulcer of calf and inflammation (9) Venous insufficiency of both lower extremities Status: Chronic Current Visit: Yes Code(s): I87.2 - Venous insufficiency (chronic) (peripheral) (10) Morbid obesity Status: Chronic Current Visit: Yes Code(s): E66.01 - Morbid (severe) obesity due to excess calories (11) Other acquired deformities of left foot Status: Chronic Current Visit: Yes Code(s): M21.6X2 - Other acquired deformities of left foot (12) Walking difficulty due to ankle and foot Status: Chronic Current Visit: Yes Code(s): R26.2 - Difficulty in walking, not elsewhere classified Type of Wound Date of Service: 10/09/18 Chief Complaint: Nonhealing left lower leg ulcer and maceration. right leg ulcers History of Wound: This 43-year-old female returns to clinic for left foot ulcer with continued drainage. She tries to wear compression and admits she is not able to perform her own. Her mother helps her when she is available. She did not follow-up with the company with her compression garments were ordered from as advised still at this time. She denies fever, chill, nausea, vomiting. She notes that her nutrition referral yet as advised. She denies odor or redness. She [facility] today for an updated left Kita brace. Progress of Wound: improving left lower leg ulcer. Stable right leg ulcers - Physical Exam Vital Signs Temp Pulse Resp BP 97.5 F L 94 18 146/98 H 10/09/18 15:10 10/09/18 15:10 10/09/18 15:10 10/09/18 15:10 General: Alert, Oriented x3, Cooperative, No apparent distress Extremities: No cyanosis, Capillary Refill Less than 3 Seconds, No Calf Tenderness - Negative Elena and Briseno sign bilateral, Diminished Peripheral Pulses, Edema - Progressive increased lower extremity edema right worse than left with hyperpigmentation, - - Invagination to skin on posterior left heel without sub-hemorrhagic or subcutaneous tissue exposed. New skin discontinuity to posterior right leg. Skin: Ulcer/ Wound - No purulence, erythema, streaking, odor, infection. Ulcer beds are granular to the right lower extremity. There is mild serous drainage and skin discontinuity to the posterior left leg, - - The peripheral skin is hairless and atrophic bilateral lower extremities Wound Measurements and Assessment WC - Nurse 1 - General Ulcer Measurement Start: 09/25/18 14:39 Freq: Status: Active Protocol: Activity Type Activity Date Activity User E-Sign Co-Sign Detail Recorded Client Recorded Date Recorded By Document 10/09/18 15:[address] [facility] [id number] 10/09/18 15:[address] [facility] 10/09/18 15:10 Wound Center Nurse 1 [Ulcer Assessment] #8- RT LAT CALF -Combined with other wound No -Current Size (cm) - Length 0.6 -Current Size (cm) - Width 0.4 -Current Size (cm) - Depth 0.1 -Total Square Cm 0.24 -Date of Last Picture (Recall this 10/09/18 field) -Photo Taken Yes -Epithelialization None Present -Tunneling No -Undermining/Tunneling No -Circular Undermining No -Exudate Amt Small -Exudate Type Serous -Wound Margin Distinct, Outline Attached -Granulation Amt Large (67-100%) -Granulation Quality Red -Slough/Fibrin Yes -Necrosis Amt Small (1-33%) -Necrotic Tissue Type Adherent Slough -Texture (Meg-wound Skin Appearance) Assessed, Scarring -Moisture (Meg-wound Skin Appearance Assessed ) -Color (Meg-wound Skin Appearance) Assessed, Erythema -Temperature (Meg-wound Skin No Abnormality Appearance) (Pt Warm) -Tenderness on Palpation (Meg-wound Yes Skin Appearance) -Ulcer Cleansing Rinsed/ Irrigated with Saline -Foul Odor after Cleansing No -Anesthetic Used 5% Lidocaine Gel #7 RIGHT LOWER PERRY -Combined with other wound No -Current Size (cm) - Length 6.5 -Current Size (cm) - Width 8 -Current Size (cm) - Depth 0.1 -Total Square Cm 52.0 -Photo Taken No -Epithelialization Small 1-33% -Tunneling No -Undermining/Tunneling No -Circular Undermining No -Exudate Amt Small -Exudate Type Serous -Wound Margin Flat & Intact -Granulation Amt Large (67-100%) -Granulation Quality Red -Slough/Fibrin No -Necrosis Amt None Present (0 %) -Texture (Meg-wound Skin Appearance) Assessed, Excoriation, Scarring -Moisture (Meg-wound Skin Appearance Assessed,Dry/ ) Scaly -Color (Meg-wound Skin Appearance) Assessed, Erythema, Hemosiderin Staining -Temperature (Meg-wound Skin No Abnormality Appearance) (Pt Warm) -Tenderness on Palpation (Meg-wound No Skin Appearance) -Ulcer Cleansing Rinsed/ Irrigated with Saline -Foul Odor after Cleansing No -Anesthetic Used 5% Lidocaine Gel #6 RIGHT LATERAL LE -Combined with other wound No -Current Size (cm) - Length 0.1 -Current Size (cm) - Width 0.1 -Current Size (cm) - Depth 0.1 -Total Square Cm 0.01 -Photo Taken No -Epithelialization Large 67-100% -Tunneling No -Undermining/Tunneling No -Circular Undermining No -Exudate Amt None Present -Texture (Meg-wound Skin Appearance) Assessed, Scarring -Moisture (Meg-wound Skin Appearance Assessed ) -Color (Meg-wound Skin Appearance) Assessed, Hemosiderin Staining -Temperature (Meg-wound Skin No Abnormality Appearance) (Pt Warm) -Tenderness on Palpation (Meg-wound No Skin Appearance) -Ulcer Cleansing Rinsed/ Irrigated with Saline -Foul Odor after Cleansing No -Anesthetic Used 5% Lidocaine Gel #5 L Heel -Combined with other wound No -Current Size (cm) - Length 0 -Current Size (cm) - Width 0 -Current Size (cm) - Depth 0 -Total Square Cm 0 -Epithelialization Large 67-100% -Texture (Meg-wound Skin Appearance) Callus,Scarring -Moisture (Meg-wound Skin Appearance Assessed,Dry/ ) Scaly -Color (Meg-wound Skin Appearance) Assessed -Temperature (Meg-wound Skin No Abnormality Appearance) (Pt Warm) -Tenderness on Palpation (Meg-wound No Skin Appearance) -Ulcer Cleansing Rinsed/ Irrigated with Saline -Foul Odor after Cleansing No -Anesthetic Used 5% Lidocaine Gel [Edema Assessment] -Lower Limb Edema Present Yes -Right Calf (cm) 61 -Right Ankle (cm) 33.7 -Left Calf (cm) 50 -Left Ankle (cm) 29.5 WC - Nurse 2 - General Ulcer CM Notes Start: 09/25/18 14:39 Freq: Status: Active Protocol: Activity Type Activity Date Activity User E-Sign Co-Sign Detail Recorded Client Recorded Date Recorded By Document 10/09/18 15:59 AN [id number] 10/09/18 16:03 AN 10/09/18 15:59 Wound Center Nurse 2 [Procedure/Treatment] #8- RT LAT CALF -Time 15:59 -Correct Patient Yes -Correct Side, Site, Position Yes -Correct Procedure Yes -Procedure Performed Yes -Type of Procedure Debridement -Clinical Debridement Subcutaneous -Post Debridement Size (cm) - Length 0.6 -Post Debridement Size (cm) - Width 0.5 -Post Debridement Size (cm) - Depth 0.1 -Total Square Cm 0.30 -Wound/Ulcer Outcome Not Healed -Bleeding Controlled with Pressure -Treatment Response Procedure Tolerated Well #7 RIGHT LOWER PERRY -Time 16:00 -Correct Patient Yes -Correct Side, Site, Position Yes -Correct Procedure Yes -Procedure Performed Yes -Type of Procedure Debridement -Clinical Debridement Subcutaneous -Post Debridement Size (cm) - Length 6.6 -Post Debridement Size (cm) - Width 8.1 -Post Debridement Size (cm) - Depth 0.1 -Total Square Cm 53.46 -Wound/Ulcer Outcome Not Healed -Bleeding Controlled with Pressure -Treatment Response Procedure Tolerated Well #6 RIGHT LATERAL LE -Time 16:01 -Correct Patient Yes -Correct Side, Site, Position Yes -Correct Procedure Yes -Procedure Performed Yes -Type of Procedure Debridement -Clinical Debridement Subcutaneous -Post Debridement Size (cm) - Length 0.2 -Post Debridement Size (cm) - Width 0.2 -Post Debridement Size (cm) - Depth 0.1 -Total Square Cm 0.04 -Wound/Ulcer Outcome Not Healed -Bleeding Controlled with Pressure -Treatment Response Procedure Tolerated Well #5 L Heel -Time 16:01 -Correct Patient Yes -Correct Side, Site, Position Yes -Correct Procedure Yes -Procedure Performed Yes -Type of Procedure Debridement -Clinical Debridement Subcutaneous -Post Debridement Size (cm) - Length 0.1 -Post Debridement Size (cm) - Width 0.1 -Post Debridement Size (cm) - Depth 0.1 -Total Square Cm 0.01 -Wound/Ulcer Outcome Not Healed -Ulcer Cleansing Rinsed/ Irrigated with Saline -Foul Odor after Cleansing No -Bioengineered Tissue No -Bleeding Controlled with Pressure -Offloading Yes -Treatment Response Procedure Tolerated Well [See Physician Procedure note for Specifics] Pain Scale: 0-10 Numeric [Pain] -Is Patient Pain Free? Yes Musculoskeletal: No Tenderness to Palpation of Joints or Extremities, Muscle Wasting, - - Compartments soft to palpate bilateral. Bilateral ankle foot is in rectus position and her status post clubfoot correction surgical intervention is noted Neurological: Sensory exam intact to light touch and pain, - Psych/Mental Status: Normal Affect, Appropriate Debridement Note Post-Debridement Measurements/Treatment WC - Nurse 2 - General Ulcer CM Notes Start: 09/25/18 14:39 Freq: Status: Active Protocol: Activity Type Activity Date Activity User E-Sign Co-Sign Detail Recorded Client Recorded Date Recorded By Document 09/25/18 15:46 AN [id number] 09/25/18 15:53 AN Document 10/09/18 15:59 AN [id number] 10/09/18 16:03 AN 09/25/18 10/09/18 15:46 15:59 Wound Center Nurse 2 #8- RT LAT CALF -Time 15:59 -Correct Patient Yes -Correct Side, Site, Position Yes -Correct Procedure Yes -Procedure Performed Yes -Type of Procedure Debridement -Clinical Debridement Subcutaneous -Post Debridement Size (cm) - Length 0.6 -Post Debridement Size (cm) - Width 0.5 -Post Debridement Size (cm) - Depth 0.1 -Total Square Cm 0.30 -Wound/Ulcer Outcome Not Healed -Bleeding Controlled with Pressure -Treatment Response Procedure Tolerated Well #7 RIGHT LOWER PERRY -Time 15:47 16:00 -Correct Patient Yes Yes -Correct Side, Site, Position Yes Yes -Correct Procedure Yes Yes -Procedure Performed Yes Yes -Type of Procedure Debridement Debridement -Clinical Debridement Subcutaneous Subcutaneous -Post Debridement Size (cm) - Length 8.1 6.6 -Post Debridement Size (cm) - Width 14 8.1 -Post Debridement Size (cm) - Depth 0.1 0.1 -Total Square Cm 113.4 53.46 -Wound/Ulcer Outcome Not Healed Not Healed -Ulcer Cleansing Rinsed/ Irrigated with Saline -Foul Odor after Cleansing No -Bioengineered Tissue No -Bleeding Controlled with Pressure Pressure -Offloading No -Treatment Response Procedure Procedure Tolerated Well Tolerated Well #6 RIGHT LATERAL LE -Time 15:50 16:01 -Correct Patient Yes Yes -Correct Side, Site, Position Yes Yes -Correct Procedure Yes Yes -Procedure Performed Yes Yes -Type of Procedure Debridement Debridement -Clinical Debridement Subcutaneous Subcutaneous -Post Debridement Size (cm) - Length 0.1 0.2 -Post Debridement Size (cm) - Width 0.1 0.2 -Post Debridement Size (cm) - Depth 0.1 0.1 -Total Square Cm 0.01 0.04 -Wound/Ulcer Outcome Not Healed Not Healed -Bleeding Controlled with Pressure -Treatment Response Procedure Procedure Tolerated Well Tolerated Well #5 L Heel -Time 15:51 16:01 -Correct Patient Yes Yes -Correct Side, Site, Position Yes Yes -Correct Procedure Yes Yes -Procedure Performed Yes Yes -Type of Procedure Debridement Debridement -Clinical Debridement Subcutaneous Subcutaneous -Post Debridement Size (cm) - Length 0.1 0.1 -Post Debridement Size (cm) - Width 0.1 0.1 -Post Debridement Size (cm) - Depth 0.1 0.1 -Total Square Cm 0.01 0.01 -Wound/Ulcer Outcome Not Healed Not Healed -Ulcer Cleansing Rinsed/ Rinsed/ Irrigated with Irrigated with Saline Saline -Foul Odor after Cleansing No No -Bioengineered Tissue No No -Bleeding Controlled with Pressure -Offloading Yes -Treatment Response Procedure Tolerated Well Pain Scale: 0-10 Numeric Is Patient Pain Free? Yes Wound debrided: proximal posterior leg Laterality: Right Type of Debridement: Excisional debridement Anesthesia Used: 5% Lidocaine Gel Depth: in the subcutaneous layer Percentage of wound debrided: 100 Instrument Used: #15 blade Tissue Removed: fibrous, devitalized subcutaneous, biofilm, slough Severity: Fat Layer Exposed Amount of bleeding with debridement: Mild Bleeding Controlled with: Pressure Patient tolerated procedure well - Additional Wound Wound debrided: anterior leg Laterality: Right Type of Debridement: Excisional debridement Anesthesia Used: 5% Lidocaine Gel Depth: in the subcutaneous layer Percentage of wound debrided: 100 Instrument Used: #15 blade Tissue Removed: fibrous, devitalized subcutaneous, biofilm, slough Severity: Fat Layer Exposed Amount of bleeding with debridement: Mild Bleeding Controlled with: Pressure Patient tolerated procedure: Patient tolerated procedure well - Additional Wound Wound debrided: posterior lower leg Laterality: Left Patient tolerated procedure: - - no debridement. 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 Left lower leg ulcers. Bilateral venous insufficiency. Lymphedema. Morbid obesity. No infection today. Malnutrition suspected. Leg contracture left. Walking difficulty. Left ankle and foot pain. Posterior tibialis tendon dysfunction left Plan: Ms. Carter presents for follow-up of bilateral lower extremity ulcers. Debridement was not performed at this left site and the ulcer of the right lower extremities were performed. I recommend application of advanced wound healing product, epi fix. Prior authorization will be initiated to optimize healing. This is medically necessary and she is not demonstrating significant improvement on standard wound care plan so far. The purpose and indication was discussed. This will be monitored closely. In the meantime, she was advised to change dressing daily with [employer]. She reports as stated above copious drainage/discharge. Aashish wraps for edema management. Other more aggressive compression will be considered. Prescriptions for [place] wraps (via [employer]) were provided for bilateral lower extremities and prior authorization is pending. This is medically necessary for limb salvage. She already has compression stockings that she reports she can only get on her left lower extremity. She cannot do this on her own. It is noted she has been using compression garments of various nature for several years including compression stockings, Aashish wraps and she can try Tubigrip's. The [employer] phone number was provided again today and she was advised to follow-up on in addition to our nursing staff as well. She is failed other conservative care for this edema and venous insufficiency treatment such as compression stockings elevation and muscle contraction. Advised to elevate lower extremities when seated in bed. To avoid idle standing or sitting. To elevate legs at rest. She also appears to have lymphedema and I recommended compression pumps; this will be ordered today as well. The indications and anticipated use was reviewed. Increase protein intake also recommended. A prescription for [employer] was provided previously. I also recommended a nutrition referral for weight management and to optimize wound healing. She is still not set this up yet and was encouraged to be persistent with calling to arrange this. I do not appreciate any signs of infection she was reassured. To better offload the site by using a donut offloading pillow. Her labs were updated without leukocytosis or other gross abnormalities. Her prealbumin was low at 16.9 and an albumin of 3.0. It is noted she had venous insufficiency with left greater saphenous vein from a study performed in 2018. Recommend follow-up with the vascular surgery to see if intervention is possible. It is also noted she had good arterial flow with studies performed in December 2017 with normal ABIs and triphasic waveforms. Her deformity and pain is noted with ambulation and seated to the left ankle which is consistent with flatfoot deformity secondary to posterior tibialis tendon dysfunction and previous surgical correction sequela. I recommended an updated non-articulating ankle-foot orthotic that is shorter in nature to accommodate her leg swelling and pain. This is medically necessary. As noted she is walking difficulty and has had good success with her previous brace. She is having difficulty wearing her current brace because it is worn down and the inner lining is also fraying and cutting into her skin. Prior authorization was performed and she was casted at the foot and ankle Center today according to standard protocol. She will be called when the device arrives. All her questions were answered and she was advised to call with any further questions or concerns. Follow-up in 1 week.
[2018-10-16 15:01] VITALS: BP 144/73; PULSE 89; RESP 18; TEMP 36.6; BMI 58.1
--- NOTE | 2018-10-16 16:02 | PN.PCM_ITS ---
(1) Ulcer of right lower extremity with fat layer exposed Status: Chronic Code(s): L97.912 - Non-pressure chronic ulcer of unspecified part of right lower leg with fat layer exposed (2) Lymphedema Status: Chronic Code(s): I89.0 - Lymphedema, not elsewhere classified (3) Ulcer of left lower extremity, limited to breakdown of skin Status: Resolved Code(s): L97.921 - Non-pressure chronic ulcer of unspecified part of left lower leg limited to breakdown of skin (4) Bilateral lower extremity edema Status: Chronic Code(s): R60.0 - Localized edema (5) Malnutrition Status: Chronic Code(s): E46 - Unspecified protein-calorie malnutrition (6) Delayed wound healing Status: Chronic Code(s): T14.8XXD - Other injury of unspecified body region, subsequent encounter (7) 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 Status: Chronic Code(s): I83.223 - 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 (8) Varicose veins of right lower extremity with both ulcer of calf and inflammation Status: Chronic Code(s): I83.212 - Varicose veins of right lower extremity with both ulcer of calf and inflammation (9) Venous insufficiency of both lower extremities Status: Chronic Code(s): I87.2 - Venous insufficiency (chronic) (peripheral) (10) Morbid obesity Status: Chronic Code(s): E66.01 - Morbid (severe) obesity due to excess calories (11) Other acquired deformities of left foot Status: Chronic Code(s): M21.6X2 - Other acquired deformities of left foot (12) Walking difficulty due to ankle and foot Status: Chronic Code(s): R26.2 - Difficulty in walking, not elsewhere classified (13) Compliance poor Status: Chronic Code(s): Z91.19 - Patient's noncompliance with other medical treatment and regimen Type of Wound Date of Service: 10/16/18 Chief Complaint: Nonhealing left lower leg ulcer and maceration. right leg ulcers History of Wound: This 43-year-old female returns to clinic for left foot ulcer with continued drainage. She tries to wear compression and admits she is not able to perform her own. Her mother helps her when she is available. She did not follow-up with the company with her compression garments were ordered from as advised still at this time. She denies fever, chill, nausea, vomiting. She notes that her nutrition referral yet as advised but this has been scheduled. She denies odor or redness. She was casted at the [facility] today for an updated left Kita brace. Progress of Wound: healed left lower leg ulcer. 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 full epithelialization noted left with heel callous. the right leg has decreased ulcer size. perpipheral skin is hairless and atrophoic Wound Measurements and Assessment WC - Nurse 1 - General Ulcer Measurement Start: 09/25/18 14:39 Freq: Status: Active Protocol: Activity Type Activity Date Activity User E-Sign Co-Sign Detail Recorded Client Recorded Date Recorded By Document 10/16/18 15:01 [facility] [id number] 10/16/18 15:18 [facility] 10/16/18 15:01 Wound Center Nurse 1 [Ulcer Assessment] #8- RT LAT CALF -Combined with other wound No -Current Size (cm) - Length 0.7 -Current Size (cm) - Width 0.7 -Current Size (cm) - Depth 0.1 -Total Square Cm 0.49 -Photo Taken No -Epithelialization None Present -Tunneling No -Undermining/Tunneling No -Circular Undermining No -Exudate Amt Small -Exudate Type Serous -Wound Margin Flat & Intact -Granulation Amt Small (1-33%) -Granulation Quality Red -Slough/Fibrin Yes -Necrosis Amt Medium (34-66%) -Necrotic Tissue Type Adherent Slough -Texture (Meg-wound Skin Appearance) Assessed, Scarring -Moisture (Meg-wound Skin Appearance Assessed ) -Color (Meg-wound Skin Appearance) Assessed, Erythema -Temperature (Meg-wound Skin No Abnormality Appearance) (Pt Warm) -Tenderness on Palpation (Meg-wound No Skin Appearance) -Ulcer Cleansing Rinsed/ Irrigated with Saline -Foul Odor after Cleansing No -Anesthetic Used 5% Lidocaine Gel #7 RIGHT LOWER PERRY -Combined with other wound No -Current Size (cm) - Length 0.3 -Current Size (cm) - Width 0.4 -Current Size (cm) - Depth 0.1 -Total Square Cm 0.12 -Photo Taken No -Epithelialization Small 1-33% -Tunneling No -Undermining/Tunneling No -Circular Undermining No -Exudate Amt Small -Exudate Type Serous -Wound Margin Flat & Intact -Granulation Amt Small (1-33%) -Granulation Quality Red -Slough/Fibrin Yes -Necrosis Amt Medium (34-66%) -Necrotic Tissue Type Adherent Slough -Texture (Meg-wound Skin Appearance) Assessed, Scarring -Moisture (Meg-wound Skin Appearance Assessed ) -Color (Meg-wound Skin Appearance) Assessed, Hemosiderin Staining -Temperature (Meg-wound Skin No Abnormality Appearance) (Pt Warm) -Tenderness on Palpation (Meg-wound No Skin Appearance) -Ulcer Cleansing Rinsed/ Irrigated with Saline -Foul Odor after Cleansing No -Anesthetic Used 5% Lidocaine Gel #6 RIGHT LATERAL LE -Combined with other wound No -Current Size (cm) - Length 0.1 -Current Size (cm) - Width 0.1 -Current Size (cm) - Depth 0.1 -Total Square Cm 0.01 -Photo Taken No -Epithelialization Large 67-100% -Texture (Meg-wound Skin Appearance) Assessed -Moisture (Meg-wound Skin Appearance Assessed ) -Color (Meg-wound Skin Appearance) Assessed -Temperature (Meg-wound Skin No Abnormality Appearance) (Pt Warm) -Tenderness on Palpation (Meg-wound No Skin Appearance) -Ulcer Cleansing Rinsed/ Irrigated with Saline -Foul Odor after Cleansing No -Anesthetic Used 5% Lidocaine Gel #5 L Heel -Combined with other wound No -Current Size (cm) - Length 0 -Current Size (cm) - Width 0 -Current Size (cm) - Depth 0 -Total Square Cm 0 -Photo Taken No -Epithelialization Large 67-100% -Texture (Meg-wound Skin Appearance) Assessed, Excoriation, Scarring -Moisture (Meg-wound Skin Appearance Assessed,Dry/ ) Scaly -Color (Meg-wound Skin Appearance) Assessed, Erythema -Temperature (Meg-wound Skin No Abnormality Appearance) (Pt Warm) -Tenderness on Palpation (Meg-wound No Skin Appearance) -Ulcer Cleansing Rinsed/ Irrigated with Saline -Foul Odor after Cleansing No -Anesthetic Used 5% Lidocaine Gel [Edema Assessment] -Lower Limb Edema Present Yes -Right Calf (cm) 61.6 -Right Ankle (cm) 33.7 -Left Calf (cm) 50.5 -Left Ankle (cm) 30.5 WC - Nurse 2 - General Ulcer CM Notes Start: 09/25/18 14:39 Freq: Status: Active Protocol: Activity Type Activity Date Activity User E-Sign Co-Sign Detail Recorded Client Recorded Date Recorded By Document 10/16/18 15:36 [id number] 10/16/18 15:39 MELINDA 10/16/18 15:36 Wound Center Nurse 2 [Procedure/Treatment] #8- RT LAT CALF -Time 15:37 -Correct Patient Yes -Correct Side, Site, Position Yes -Correct Procedure Yes -Procedure Performed Yes -Type of Procedure Debridement -Clinical Debridement Subcutaneous -Post Debridement Size (cm) - Length 0.8 -Post Debridement Size (cm) - Width 0.7 -Post Debridement Size (cm) - Depth 0.1 -Total Square Cm 0.56 -Wound/Ulcer Outcome Not Healed -Ulcer Cleansing Rinsed/ Irrigated with Saline -Foul Odor after Cleansing No -Bioengineered Tissue No -Bleeding Controlled with Pressure -Offloading No -Treatment Response Procedure Tolerated Well #7 RIGHT LOWER PERRY -Time 15:37 -Correct Patient Yes -Correct Side, Site, Position Yes -Correct Procedure Yes -Procedure Performed Yes -Type of Procedure Debridement -Clinical Debridement Subcutaneous -Post Debridement Size (cm) - Length 0.4 -Post Debridement Size (cm) - Width 0.4 -Post Debridement Size (cm) - Depth 0.1 -Total Square Cm 0.16 -Wound/Ulcer Outcome Not Healed -Ulcer Cleansing Rinsed/ Irrigated with Saline -Foul Odor after Cleansing No -Bioengineered Tissue No -Bleeding Controlled with Pressure -Offloading No -Treatment Response Procedure Tolerated Well #6 RIGHT LATERAL LE -Time 15:37 -Correct Patient Yes -Correct Side, Site, Position Yes -Correct Procedure Yes -Procedure Performed Yes -Type of Procedure Debridement -Clinical Debridement Subcutaneous -Post Debridement Size (cm) - Length 0.2 -Post Debridement Size (cm) - Width 0.2 -Post Debridement Size (cm) - Depth 0.1 -Total Square Cm 0.04 -Wound/Ulcer Outcome Not Healed -Ulcer Cleansing Rinsed/ Irrigated with Saline -Foul Odor after Cleansing No -Bioengineered Tissue No -Bleeding Controlled with Pressure -Offloading No -Treatment Response Procedure Tolerated Well #5 L Heel -Correct Patient No -Correct Side, Site, Position No -Correct Procedure No -Procedure Performed No -Post Debridement Size (cm) - Length 0 -Post Debridement Size (cm) - Width 0 -Post Debridement Size (cm) - Depth 0 -Total Square Cm 0 -Wound/Ulcer Outcome Healed- Epithelialized [See Physician Procedure note for Specifics] Pain Scale: 0-10 Numeric [Pain] -Is Patient Pain Free? Yes Musculoskeletal: No Tenderness to Palpation of Joints or Extremities, Muscle Wasting Neurological: Sensory exam intact to light touch and pain Psych/Mental Status: Normal Affect, Appropriate Debridement Note Post-Debridement Measurements/Treatment WC - Nurse 2 - General Ulcer CM Notes Start: 09/25/18 14:39 Freq: Status: Active Protocol: Activity Type Activity Date Activity User E-Sign Co-Sign Detail Recorded Client Recorded Date Recorded By Document 09/25/18 15:46 AN [id number] 09/25/18 15:53 AN Document 10/09/18 15:59 AN [id number] 10/09/18 16:03 AN Document 10/16/18 15:36 [id number] 10/16/18 15:39 09/25/18 10/09/18 10/16/18 15:46 15:59 15:36 Wound Center Nurse 2 #8- RT LAT CALF -Time 15:59 15:37 -Correct Patient Yes Yes -Correct Side, Site, Position Yes Yes -Correct Procedure Yes Yes -Procedure Performed Yes Yes -Type of Procedure Debridement Debridement -Clinical Debridement Subcutaneous Subcutaneous -Post Debridement Size (cm) - Length 0.6 0.8 -Post Debridement Size (cm) - Width 0.5 0.7 -Post Debridement Size (cm) - Depth 0.1 0.1 -Total Square Cm 0.30 0.56 -Wound/Ulcer Outcome Not Healed Not Healed -Ulcer Cleansing Rinsed/ Irrigated with Saline -Foul Odor after Cleansing No -Bioengineered Tissue No -Bleeding Controlled with Pressure Pressure -Offloading No -Treatment Response Procedure Procedure Tolerated Well Tolerated Well #7 RIGHT LOWER PERRY -Time 15:47 16:00 15:37 -Correct Patient Yes Yes Yes -Correct Side, Site, Position Yes Yes Yes -Correct Procedure Yes Yes Yes -Procedure Performed Yes Yes Yes -Type of Procedure Debridement Debridement Debridement -Clinical Debridement Subcutaneous Subcutaneous Subcutaneous -Post Debridement Size (cm) - Length 8.1 6.6 0.4 -Post Debridement Size (cm) - Width 14 8.1 0.4 -Post Debridement Size (cm) - Depth 0.1 0.1 0.1 -Total Square Cm 113.4 53.46 0.16 -Wound/Ulcer Outcome Not Healed Not Healed Not Healed -Ulcer Cleansing Rinsed/ Rinsed/ Irrigated with Irrigated with Saline Saline -Foul Odor after Cleansing No No -Bioengineered Tissue No No -Bleeding Controlled with Pressure Pressure Pressure -Offloading No No -Treatment Response Procedure Procedure Procedure Tolerated Well Tolerated Well Tolerated Well #6 RIGHT LATERAL LE -Time 15:50 16:01 15:37 -Correct Patient Yes Yes Yes -Correct Side, Site, Position Yes Yes Yes -Correct Procedure Yes Yes Yes -Procedure Performed Yes Yes Yes -Type of Procedure Debridement Debridement Debridement -Clinical Debridement Subcutaneous Subcutaneous Subcutaneous -Post Debridement Size (cm) - Length 0.1 0.2 0.2 -Post Debridement Size (cm) - Width 0.1 0.2 0.2 -Post Debridement Size (cm) - Depth 0.1 0.1 0.1 -Total Square Cm 0.01 0.04 0.04 -Wound/Ulcer Outcome Not Healed Not Healed Not Healed -Ulcer Cleansing Rinsed/ Irrigated with Saline -Foul Odor after Cleansing No -Bioengineered Tissue No -Bleeding Controlled with Pressure Pressure -Offloading No -Treatment Response Procedure Procedure Procedure Tolerated Well Tolerated Well Tolerated Well #5 L Heel -Time 15:51 16:01 -Correct Patient Yes Yes No -Correct Side, Site, Position Yes Yes No -Correct Procedure Yes Yes No -Procedure Performed Yes Yes No -Type of Procedure Debridement Debridement -Clinical Debridement Subcutaneous Subcutaneous -Post Debridement Size (cm) - Length 0.1 0.1 0 -Post Debridement Size (cm) - Width 0.1 0.1 0 -Post Debridement Size (cm) - Depth 0.1 0.1 0 -Total Square Cm 0.01 0.01 0 -Wound/Ulcer Outcome Not Healed Not Healed Healed- Epithelialized -Ulcer Cleansing Rinsed/ Rinsed/ Irrigated with Irrigated with Saline Saline -Foul Odor after Cleansing No No -Bioengineered Tissue No No -Bleeding Controlled with Pressure -Offloading Yes -Treatment Response Procedure Tolerated Well Pain Scale: 0-10 Numeric Is Patient Pain Free? Yes Yes Wound debrided: leg lower Laterality: Right Type of Debridement: Excisional debridement Anesthesia Used: 5% Lidocaine Gel Depth: in the subcutaneous layer Percentage of wound debrided: 100 Instrument Used: #15 blade Tissue Removed: fibrous, devitalized subcutaneous, biofilm, slough Severity: Fat Layer Exposed Amount of bleeding with debridement: Mild Bleeding Controlled with: Pressure Patient tolerated procedure well - Additional Wound Wound debrided: leg lateral Laterality: Right Type of Debridement: Excisional debridement Anesthesia Used: 5% Lidocaine Gel Depth: in the subcutaneous layer Percentage of wound debrided: 100 Instrument Used: #15 blade Tissue Removed: fibrous, devitalized subcutaneous, biofilm, slough Severity: Fat Layer Exposed Amount of bleeding with debridement: Mild Bleeding Controlled with: Pressure Patient tolerated procedure: Patient tolerated procedure well Assessment/Plan Assessment: Right lower posterior leg / foot ulceration. Left lower leg ulcers healed (chronic skin irritation and callous remains). Bilateral venous insufficiency. Lymphedema. Morbid obesity. No infection today. Malnutrition suspected. Leg contracture left. Walking difficulty. Left ankle and foot p ain. Posterior tibialis tendon dysfunction left Plan: Ms. Carter presents for follow-up of bilateral lower extremity ulcers. Debridement was not performed at this left site because it is healed, and the ulcer of the right lower extremities were performed as noted in the clinical panel. I recommend application of advanced wound healing product, epi fix. Prior authorization will be initiated to optimize healing. This is medically necessary and she is not demonstrating significant improvement on standard wound care plan so far. The purpose and indication was discussed. This will be monitored closely. In the meantime, she was advised to change dressing daily with [employer]. She reports as stated above copious drainage/discharge. Aashish wraps for edema management. Other more aggressive compression will be considered. Prescriptions for [place] wraps (via [employer]) were provided for bilateral lower extremities and prior authorization is pending. This is medica lly necessary for limb salvage. She already has compression stockings that she reports she can only get on her left lower extremity. She cannot do this on her own. It is noted she has been using compression garments of various nature for several years including compression stockings, Aashish wraps and she can try Tubigrip's. The [employer] phone number was provided again today and she was advised to follow-up on in addition to our nursing staff as well. She is failed other conservative care for this edema and venous insufficiency treatment such as compression stockings elevation and muscle contraction. Advised to elevate lower extremities when seated in bed. To avoid idle standing or sitting. To elevate legs at rest. She also appears to have lymphedema and I recommended compression pumps; this will be ordered today as well. The indications and anticipated use was reviewed. Increase protein intake also recommended. A prescription for [employer] was provided previously. I also recommended a nutrition referral for weight management and to optimize wound healing. I do not appreciate any signs of infection and she was reassured. To better offload the site by using a donut offloading pillow. Her labs were updated without leukocytosis or other gross abnormalities. Her prealbumin was low at 16.9 and an albumin of 3.0. It is noted she had venous insufficiency with left greater saphenous vein from a study performed in 2018. Recommend follow-up with the vascular surgery to see if intervention is possible. It is also noted she had good arterial flow with studies performed in December 2017 with normal ABIs and triphasic waveforms. Her deformity and pain is noted with ambulation and seated to the left ankle which is consistent with flatfoot deformity secondary to posterior tibialis tendon dysfunction and previous surgical correction sequela. I recommended an updated non-articulating ankle-foot orthotic that is shorter in nature to accommodate her leg swelling and pain. This is medically necessary. As noted she is walking difficulty and has had good success with her previous brace. She is having difficulty wearing her current brace because it is worn down and the inner lining is also fraying and cutting into her skin. Prior authorization was performed and she was casted previously according to standard protocol. She will be called when the device arrives. her left foot callous was also debrided with a fifteen blade without incident to reduce pressure and further ulcer formation at this site. All her questions were answered and she was advised to call with any further questions or concerns. Follow-up in 1 week at the wound healing center.
== END 2018-10-20 23:59 ==
LOC: WC 15:00
PROVIDERS: Visit Provider Internal Medicine
DX: I83.223 Varicose veins of left lower extremity with both ulcer of ankle and inflammation (principal); L97.322 Non-pressure chronic ulcer of left ankle with fat layer exposed; I83.212 Varicose veins of right lower extremity with both ulcer of calf and inflammation; L97.212 Non-pressure chronic ulcer of right calf with fat layer exposed; L97.821 Non-pressure chronic ulcer of other part of left lower leg limited to breakdown of skin; L97.812 Non-pressure chronic ulcer of other part of right lower leg with fat layer exposed; I89.0 Lymphedema, not elsewhere classified; R60.0 Localized edema; E66.01 Morbid (severe) obesity due to excess calories; Z68.43 Body mass index [BMI] 50.0-59.9, adult; Z71.3 Dietary counseling and surveillance; R26.2 Difficulty in walking, not elsewhere classified; M25.572 Pain in left ankle and joints of left foot; M79.672 Pain in left foot; L84 Corns and callosities
CPT/HCPCS: 11042; 99213; G0463

== ENCOUNTER 2018-11-20 09:30 | Outpatient (RCR) | payer MEDICARE, MEDICAID, SELFPAY ==
[2018-10-21 00:49] VITALS: BP 144/73; PULSE 89; RESP 18; TEMP 36.6
[2018-10-23 11:46] VITALS: BP 149/86; PULSE 95; RESP 18; TEMP 36.1; BMI 58.1
--- NOTE | 2018-10-23 13:41 | VDLE_ITS ---
Reason For Study: Edema RIGHT GSV is normal with color. CFV is normal with color and doppler signals. FV is normal with color and doppler signals. PopV is normal with color and doppler signals. T/P Trunk is compressible. PTV is compressible. RT PerV is compressible. Procedure Exam performed in department. Unable to compress veins from groin to knee due to pt discomfort. Veins identified with color and doppler only. A preliminary report was called and/or faxed to [facility]. Interpretation Summary Deep veins of the right lower extremity are patent segmentally. There is no evidence of right lower extremity deep vein thrombosis. The right greater saphenous vein appears patent segmentally. Ordering Physician: Dariana Swartz Referring Physician: Marcela Sargent Performed By: Amada Alberto RVT
--- NOTE | 2018-10-23 13:46 | PCM.WC.PN ---
(1) Ulcer of right lower extremity with fat layer exposed Status: Chronic Current Visit: Yes Code(s): L97.912 - Non-pressure chronic ulcer of unspecified part of right lower leg with fat layer exposed (2) Deep vein thrombosis of right lower limb Status: Suspected Current Visit: Yes Qualifiers: Chronicity: acute Code(s): I82.401 - Acute embolism and thrombosis of unspecified deep veins of right lower extremity (3) Cellulitis of right lower extremity Status: Acute Current Visit: Yes Code(s): L03.115 - Cellulitis of right lower limb (4) Bilateral lower extremity edema Status: Chronic Current Visit: Yes Code(s): R60.0 - Localized edema (5) Malnutrition Status: Chronic Current Visit: Yes Code(s): E46 - Unspecified protein-calorie malnutrition (6) Delayed wound healing Status: Chronic Current Visit: Yes Code(s): T14.8XXD - Other injury of unspecified body region, subsequent encounter (7) Lymphedema Status: Chronic Current Visit: Yes Code(s): I89.0 - Lymphedema, not elsewhere classified Type of Wound Date of Service: 10/23/18 Chief Complaint: right leg infection. right leg ulcers History of Wound: This 43-year-old female returns to clinic for left foot ulcer that remains healed. She also follows up for right leg ulcers in which the newer one on the back of the calf is not painful and red and warm to touch. She denies odor. She denies shortness of breath or chest pain. She tries to wear compression and admits she is not able to perform her own. She brought them in today for further education. Her mother helps her when she is available. She did not follow-up with the company with her compression garments were ordered from as advised still at this time. She denies fever, chill, nausea, vomiting. Progress of Wound: healed left lower leg ulcer. Stable lateral and anterior right leg ulcers. Worsening status of the right posterior leg ulcer with infection - Physical Exam Vital Signs Temp Pulse Resp BP 97.0 F L 95 18 149/86 H 10/23/18 11:46 10/23/18 11:46 10/23/18 11:46 10/23/18 11:46 General: Alert, Oriented x3, Cooperative, No apparent distress Extremities: No cyanosis, Capillary Refill Less than 3 Seconds, No Calf Tenderness - Left lower extremity, Diminished Peripheral Pulses, Edema - Increased right lower extremity with calor and erythema and positive Briseno sign Skin: Ulcer/ Wound - There is fibrinous and devitalized tissue expressed from the right posterior leg ulcer site with surrounding erythema. There is no distinct odor or necrosis or probing to deeper structures or undermining. There is no distinct fluctuance or bogginess on palpation of the site. The peripheral skin is hairless and atrophic. The other ulcers to the lower right leg are pale granular base without local signs of infection. There is no open lesion noted to the left lower extremity at this time. She has hyperpigmentation bilateral lower extremities Wound Measurements and Assessment WC - Nurse 1 - General Ulcer Measurement Start: 10/23/18 11:45 Freq: Status: Active Protocol: Activity Type Activity Date Activity User E-Sign Co-Sign Detail Recorded Client Recorded Date Recorded By Document 10/23/18 11:46 AR [id number] 10/23/18 12:04 AR 10/23/18 11:46 Wound Center Nurse 1 [Ulcer Assessment] #9 Right Post Calf Cluster -Current Size (cm) - Length 4.5 -Current Size (cm) - Width 0.5 -Current Size (cm) - Depth 0.1 -Total Square Cm 2.25 -Date of Last Picture (Recall this 10/23/18 field) -Photo Taken Yes -Exudate Amt Medium -Exudate Type Sanguineous -Wound Margin Flat & Intact -Granulation Amt Large (67-100%) -Granulation Quality Pale,Burnett -Slough/Fibrin No -Texture (Meg-wound Skin Appearance) Assessed, Localized Edema -Moisture (Meg-wound Skin Appearance Assessed ) -Color (Meg-wound Skin Appearance) Assessed, Erythema -Temperature (Meg-wound Skin No Abnormality Appearance) (Pt Warm) -Tenderness on Palpation (Meg-wound No Skin Appearance) -Ulcer Cleansing Rinsed/ Irrigated with Saline -Anesthetic Used 5% Lidocaine Gel #8- RT LAT CALF -Current Size (cm) - Length 0.1 -Current Size (cm) - Width 0.1 -Current Size (cm) - Depth 0.1 -Total Square Cm 0.01 #7 RIGHT LOWER SENIOR -Current Size (cm) - Length 0.1 -Current Size (cm) - Width 0.1 -Current Size (cm) - Depth 0.1 -Total Square Cm 0.01 #6 RIGHT LATERAL LE -Current Size (cm) - Length 0.1 -Current Size (cm) - Width 0.1 -Current Size (cm) - Depth 0.1 -Total Square Cm 0.01 -Texture (Meg-wound Skin Appearance) Assessed, Localized Edema -Moisture (Meg-wound Skin Appearance Assessed ) -Color (Meg-wound Skin Appearance) Assessed, Erythema [Edema Assessment] -Point of measurement (cm from the 62 medial instep) -Point of Measurement (cm from the 34 medial instep) -Left Calf (cm) 50 -Point of Measurement (cm from the 30 medial instep) WC - Nurse 2 - General Ulcer CM Notes Start: 10/23/18 11:45 Freq: Status: Active Protocol: Activity Type Activity Date Activity User E-Sign Co-Sign Detail Recorded Client Recorded Date Recorded By Document 10/23/18 12:17 MELINDA [id number] 10/23/18 12:20 MELINDA 10/23/18 12:17 Wound Center Nurse 2 [Procedure/Treatment] #9 Right Post Calf Cluster -Time 12:18 -Correct Patient Yes -Correct Side, Site, Position Yes -Correct Procedure Yes -Procedure Performed Yes -Type of Procedure Debridement -Clinical Debridement Subcutaneous -Post Debridement Size (cm) - Length 0.9 -Post Debridement Size (cm) - Width 0.4 -Post Debridement Size (cm) - Depth 0.2 -Total Square Cm 0.36 -Wound/Ulcer Outcome Not Healed -Ulcer Cleansing Rinsed/ Irrigated with Saline -Foul Odor after Cleansing No -Bioengineered Tissue No -Bleeding Controlled with Pressure -Offloading No -Treatment Response Procedure Tolerated Well #8- RT LAT CALF -Time 12:18 -Correct Patient Yes -Correct Side, Site, Position Yes -Correct Procedure Yes -Procedure Performed Yes -Type of Procedure Debridement -Clinical Debridement Subcutaneous -Post Debridement Size (cm) - Length 0.3 -Post Debridement Size (cm) - Width 0.4 -Post Debridement Size (cm) - Depth 0.1 -Total Square Cm 0.12 -Wound/Ulcer Outcome Not Healed -Ulcer Cleansing Rinsed/ Irrigated with Saline -Foul Odor after Cleansing No -Bioengineered Tissue No -Bleeding Controlled with Pressure -Offloading No -Treatment Response Procedure Tolerated Well #7 RIGHT LOWER SENIOR -Time 12:19 -Correct Patient Yes -Correct Side, Site, Position Yes -Correct Procedure Yes -Procedure Performed Yes -Type of Procedure Debridement -Clinical Debridement Subcutaneous -Post Debridement Size (cm) - Length 1 -Post Debridement Size (cm) - Width 2 -Post Debridement Size (cm) - Depth 0.1 -Total Square Cm 2 -Wound/Ulcer Outcome Not Healed -Ulcer Cleansing Rinsed/ Irrigated with Saline -Foul Odor after Cleansing No -Bioengineered Tissue No -Bleeding Controlled with Pressure -Offloading No -Treatment Response Procedure Tolerated Well #6 RIGHT LATERAL LE -Time 12:19 -Correct Patient Yes -Correct Side, Site, Position Yes -Correct Procedure Yes -Procedure Performed Yes -Type of Procedure Debridement -Clinical Debridement Subcutaneous -Post Debridement Size (cm) - Length 0.2 -Post Debridement Size (cm) - Width 0.2 -Post Debridement Size (cm) - Depth 0.1 -Total Square Cm 0.04 -Wound/Ulcer Outcome Not Healed -Ulcer Cleansing Rinsed/ Irrigated with Saline -Foul Odor after Cleansing No -Bioengineered Tissue No -Bleeding Controlled with Pressure -Offloading No -Treatment Response Procedure Tolerated Well [See Physician Procedure note for Specifics] Pain Scale: 0-10 Numeric [Pain] -Is Patient Pain Free? Yes Musculoskeletal: No Tenderness to Palpation of Joints or Extremities, Muscle Wasting, - - Pain with ulcer manipulation and adjacent leg manipulation of the right posterior calf Neurological: Sensory exam intact to light touch and pain Psych/Mental Status: Normal Affect, Appropriate Debridement Note Post-Debridement Measurements/Treatment WC - Nurse 2 - General Ulcer CM Notes Start: 10/23/18 11:45 Freq: Status: Active Protocol: Activity Type Activity Date Activity User E-Sign Co-Sign Detail Recorded Client Recorded Date Recorded By Document 10/23/18 12:17 MELINDA [id number] 10/23/18 12:20 MELINDA 10/23/18 12:17 Wound Center Nurse 2 #9 Right Post Calf Cluster -Time 12:18 -Correct Patient Yes -Correct Side, Site, Position Yes -Correct Procedure Yes -Procedure Performed Yes -Type of Procedure Debridement -Clinical Debridement Subcutaneous -Post Debridement Size (cm) - Length 0.9 -Post Debridement Size (cm) - Width 0.4 -Post Debridement Size (cm) - Depth 0.2 -Total Square Cm 0.36 -Wound/Ulcer Outcome Not Healed -Ulcer Cleansing Rinsed/ Irrigated with Saline -Foul Odor after Cleansing No -Bioengineered Tissue No -Bleeding Controlled with Pressure -Offloading No -Treatment Response Procedure Tolerated Well #8- RT LAT CALF -Time 12:18 -Correct Patient Yes -Correct Side, Site, Position Yes -Correct Procedure Yes -Procedure Performed Yes -Type of Procedure Debridement -Clinical Debridement Subcutaneous -Post Debridement Size (cm) - Length 0.3 -Post Debridement Size (cm) - Width 0.4 -Post Debridement Size (cm) - Depth 0.1 -Total Square Cm 0.12 -Wound/Ulcer Outcome Not Healed -Ulcer Cleansing Rinsed/ Irrigated with Saline -Foul Odor after Cleansing No -Bioengineered Tissue No -Bleeding Controlled with Pressure -Offloading No -Treatment Response Procedure Tolerated Well #7 RIGHT LOWER SENIOR -Time 12:19 -Correct Patient Yes -Correct Side, Site, Position Yes -Correct Procedure Yes -Procedure Performed Yes -Type of Procedure Debridement -Clinical Debridement Subcutaneous -Post Debridement Size (cm) - Length 1 -Post Debridement Size (cm) - Width 2 -Post Debridement Size (cm) - Depth 0.1 -Total Square Cm 2 -Wound/Ulcer Outcome Not Healed -Ulcer Cleansing Rinsed/ Irrigated with Saline -Foul Odor after Cleansing No -Bioengineered Tissue No -Bleeding Controlled with Pressure -Offloading No -Treatment Response Procedure Tolerated Well #6 RIGHT LATERAL LE -Time 12:19 -Correct Patient Yes -Correct Side, Site, Position Yes -Correct Procedure Yes -Procedure Performed Yes -Type of Procedure Debridement -Clinical Debridement Subcutaneous -Post Debridement Size (cm) - Length 0.2 -Post Debridement Size (cm) - Width 0.2 -Post Debridement Size (cm) - Depth 0.1 -Total Square Cm 0.04 -Wound/Ulcer Outcome Not Healed -Ulcer Cleansing Rinsed/ Irrigated with Saline -Foul Odor after Cleansing No -Bioengineered Tissue No -Bleeding Controlled with Pressure -Offloading No -Treatment Response Procedure Tolerated Well Pain Scale: 0-10 Numeric Is Patient Pain Free? Yes Wound debrided: posterior leg Laterality: Right Type of Debridement: Excisional debridement Anesthesia Used: 5% Lidocaine Gel Depth: in the subcutaneous layer Percentage of wound debrided: 100 Instrument Used: #15 blade Tissue Removed: fibrous, devitalized subcutaneous, biofilm, slough Severity: Fat Layer Exposed Amount of bleeding with debridement: Mild Bleeding Controlled with: Pressure Patient tolerated procedure well - Additional Wound Wound debrided: anterior senior cluster Laterality: Right Type of Debridement: Excisional debridement Anesthesia Used: 5% Lidocaine Gel Depth: in the subcutaneous layer Percentage of wound debrided: - - 15% Instrument Used: #15 blade Tissue Removed: fibrous, devitalized subcutaneous, biofilm, slough Severity: Fat Layer Exposed Amount of bleeding with debridement: Mild Bleeding Controlled with: Pressure Patient tolerated procedure: Patient tolerated procedure well - Additional Wound Wound debrided: lateral leg Laterality: Right Type of Debridement: Excisional debridement Anesthesia Used: 5% Lidocaine Gel Depth: in the subcutaneous layer Percentage of wound debrided: 100 Instrument Used: #15 blade Tissue Removed: fibrous, devitalized subcutaneous, biofilm, slough Severity: Fat Layer Exposed Amount of bleeding with debridement: Mild Bleeding Controlled with: Pressure Patient tolerated procedure: Patient tolerated procedure well Assessment/Plan Active Problems Cellulitis of right lower extremity (Acute) Bilateral lower extremity edema (Chronic) Ulcer of right lower extremity with fat layer exposed (Chronic) Malnutrition (Chronic) Delayed wound healing (Chronic) Lymphedema (Chronic) Assessment: Right posterior proximal leg ulcer with cellulitis and pain; worsening status right anterior lateral leg ulcers stable. Rule out deep venous thrombosis right lower extremity. Left lower leg ulcers healed (chronic skin irritation and callous remains). Bilateral venous insufficiency. Lymphedema. Morbid obesity. No infection today. Malnutrition suspected. Leg contracture left. Walking difficulty. Left ankle and foot pain. Posterior tibialis tendon dysfunction left Plan: Ms. Carter presents for follow-up of right lower extremity ulcers. She is reassured no ulcers on the left side. Subcutaneous excisional debridement was performed to all ulcer sites in the right lower extremity. Further aerobic and anaerobic cultures were obtained from the right leg after debridement. I am concerned this is cellulitis and will also work-up to rule out a deep venous thrombosis. She was started on doxycycline and advised on safe and proper use. To obtain labs including CBC, CMP, ESR and C-reactive protein. She was also advised to obtain a a venous Doppler to rule out blood clot today. I recommend application of advanced wound healing product, epi fix to the noninfected sites and prior authorization still pending. Prior authorization will be initiated to optimize healing. This is medically necessary and she is not demonstrating significant improvement on standard wound care plan so far. This ulcer site is chronic and has been present for more than 1 month. The purpose and indication was discussed. Is also noted she is not a current smoker nor has she been in the past month. Her ulcer is clear and free of contaminated or necrotic tissue. She is not responded appropriately to traditional ulcer care and is continued lack of improvement over the past 4 weeks. This will be monitored closely. In the meantime, she was advised to change dressing daily with Aquacel Ag. Aashish wraps for edema management. Other more aggressive compression will be considered. Prescriptions for [place] wraps (via [employer]) were provided for bilateral lower extremities and prior authorization is pending. This is medically necessary for limb salvage. She already has compression stockings that she reports she can only get on her left lower extremity. She cannot do this on her own. Updated education was provided for application of the left lower extremity. She has failed other conservative care for this edema and venous insufficiency treatment such as compression stockings elevation and muscle contraction. Advised to elevate lower extremities when seated in bed. To avoid idle standing or sitting. To elevate legs at rest. She also appears to have lymphedema and I recommended compression pumps and this was previously ordered. The indications and anticipated use was reviewed. Increase protein intake also recommended. A prescription for [employer] [place] was provided previously. I also recommended a nutrition referral for weight management and to optimize wound healing. I do not appreciate any signs of infection and she was reassured. To better offload the site by using a donut offloading pillow. Her labs were updated without leukocytosis or other gross abnormalities. Her prealbumin was low at 16.9 and an albumin of 3.0. It is noted she had venous insufficiency with left greater saphenous vein from a study performed in 2018. Recommend follow-up with the vascular surgery to see if intervention is possible. It is also noted she had good arterial flow with studies performed in December 2017 with normal ABIs and triphasic waveforms. This appears to be adequate for ulcer healing. Her deformity and pain is noted with ambulation and seated to the left ankle which is consistent with flatfoot deformity secondary to posterior tibialis tendon dysfunction and previous surgical correction sequela. I recommended an updated non-articulating ankle-foot orthotic that is shorter in nature to accommodate her leg swelling and pain. This is medically necessary. As noted she is walking difficulty and has had good success with her previous brace. She is having difficulty wearing her current brace because it is worn down and the inner lining is also fraying and cutting into her skin. Prior authorization was performed and she was casted previously according to standard protocol. This has arrived and she will be scheduled to get fitted for this of the [facility]. All her questions were answered and she was advised to call with any further questions or concerns. Follow-up in 1 week at the wound healing center.
[2018-10-23 14:57] LABS: Absolute Lymphocyte Count 0.97 X10^3/ul (0.83-4.51); Absolute Neutrophil Count 4.3 X10^3/uL (2.0-7.7); Basophil# 0.02 X10^3/uL; Basophil% 0.3 % (0-1); Eosinophil# 0.11 X10^3/uL; Eosinophils% 1.9 % (0-5); Hematocrit 36.2 % (37-47); Hemoglobin 11.4 g/dl (12.0-15.0); Lymphocyte # 0.97 X10^3/ul (4.0); Lymphocyte % 16.7 % (19-41); Mean Corp Hgb Conc 31.5 g/gl (32-36); Mean Corpuscular Hgb 28.1 pg (27.0-32.0); Mean Corpuscular Volume 89.2 fL (81-99); Mean Platelet Vol. 10.5 fl (6.2-12.0); Monocyte# 0.37 X10^3/uL; Monocyte% 6.4 % (0-10); Neutrophil # 4.32 X10^3/uL (2.7-7.7); Neutrophil % 74.5 % (47-70); Platelet Count 188 K/mm3 (150-450); RBC Distribution Width CV 15.4 % (11.6-14.6); RBC Distribution Width SD 49.4 fl (35.1-43.9); Red Blood Count 4.06 M/mm3 (4.2-5.4); White Blood Count 5.8 K/mm3 (4.4-11.0)
[2018-10-23 14:59] LABS: POSITIVE COUNT NO; POSITIVE DIFFERENTIAL NO; POSITIVE MORPHOLOGY NO
[2018-10-23 15:01] LABS: Erythrocyte Sedimentation Rate 30 mm/hr (0-20)
[2018-10-23 15:29] LABS: ALB/GLOB Ratio 0.7 RATIO (0.9-2.4); AST(SGOT) 8 U/L (15-37); Alanine Aminotransfer ALT/SGPT 29 U/L (13-56); Albumin, Serum 3.2 g/dL (3.2-5.0); Alkaline Phosphatase 106 U/L (45-117); Anion Gap 7 (5-15); BUN 16 mg/dL (7-18); BUN/Creat Ratio 19.2 RATIO (10-20); Chloride 109 mmol/L (98-107); Creatinine, Serum 0.83 mg/dL (0.55-1.02); EST Glomerular Filtration Rate 80 mL/min (>60); Est Glom Filt Rate - Afr Amer 96 mL/min (>60); Estimated Creatinine Clearance 82.66 ml/min; Globulin 4.5 g/dL (2.2-4.2); Glucose 115 mg/dL (74-106); Potassium 3.7 mmol/L (3.5-5.1); Protein, Total 7.7 g/dL (6.4-8.2); Sodium Level 140 mmol/L (136-145)
[2018-10-23 20:12] LABS: M R Staph aureus DNA By PCR POSITIVE (Negative); Probe Check PASS; Staph aureus DNA By PCR POSITIVE (Negative)
[2018-10-30 15:40] VITALS: BP 142/75; PULSE 101; RESP 20; TEMP 36.5; BMI 58.1
--- NOTE | 2018-10-30 16:38 | PCM.WC.PN ---
(1) Maceration of skin Status: Chronic Current Visit: Yes Code(s): L98.8 - Other specified disorders of the skin and subcutaneous tissue Comment: left lower leg (2) Ulcer of right lower extremity with fat layer exposed Status: Resolved Current Visit: Yes Code(s): L97.912 - Non-pressure chronic ulcer of unspecified part of right lower leg with fat layer exposed (3) Deep vein thrombosis of right lower limb Status: Ruled-out Current Visit: Yes Code(s): I82.401 - Acute embolism and thrombosis of unspecified deep veins of right lower extremity (4) Cellulitis of right lower extremity Status: Resolved Current Visit: Yes Code(s): L03.115 - Cellulitis of right lower limb (5) Bilateral lower extremity edema Status: Chronic Current Visit: Yes Code(s): R60.0 - Localized edema (6) Malnutrition Status: Chronic Current Visit: Yes Code(s): E46 - Unspecified protein-calorie malnutrition (7) Delayed wound healing Status: Chronic Current Visit: Yes Code(s): T14.8XXD - Other injury of unspecified body region, subsequent encounter (8) Lymphedema Status: Chronic Current Visit: Yes Code(s): I89.0 - Lymphedema, not elsewhere classified Type of Wound Date of Service: 10/30/18 Chief Complaint: right leg infection. right leg ulcers History of Wound: This 43-year-old female returns to clinic for left foot ulcer that remains healed. She also follows up for right leg ulcers which have healed. She no longer has drainage or redness. She completed a course of doxycycline and had a prior documented MRSA cellulitis ulcer infection. She denies odor. She denies shortness of breath or chest pain. She denies fever, chill, nausea, vomiting. He relates new moisture to the left leg and heel and denies known drainage. 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 Progress of Wound: Healed right leg ulcers. Resolved cellulitis right lower extremity. Maceration left lower extremity and heel - Physical Exam Vital Signs Temp Pulse Resp BP 97.7 F L 101 H 20 H 142/75 H 10/30/18 15:40 10/30/18 15:40 10/30/18 15:40 10/30/18 15:40 General: Alert, Oriented x3, Cooperative, No apparent distress Extremities: No cyanosis, Capillary Refill Less than 3 Seconds, No Calf Tenderness - Negative for the presence of bilateral, Diminished Peripheral Pulses, Edema - Bilateral lower extremities, - - Status post clubfoot left lower extremity with lower extremity rectus position noted. The compartments remain soft to palpate bilateral lower extremities. Decreased tenderness noted at resolved cellulitis site of the proximal posterior right leg Skin: Ulcer/ Wound - Full epithelialization is noted at the previous ulcer sites. There is no purulence, erythema hamstring, odor, infection noted bilateral lower extremity's. There is some maceration to the posterior left lower extremity without subcutaneous tissue exposed. There is mild weeping drainage noted that is serous in nature Wound Measurements and Assessment WC - Nurse 1 - General Ulcer Measurement Start: 10/23/18 11:45 Freq: Status: Active Protocol: Activity Type Activity Date Activity User E-Sign Co-Sign Detail Recorded Client Recorded Date Recorded By Document 10/30/18 15:40 DL [id number] 10/30/18 15:49 DL 10/30/18 15:40 Wound Center Nurse 1 [Ulcer Assessment] #9 Right Post Calf Cluster -Current Size (cm) - Length 0.3 -Current Size (cm) - Width 0.5 -Current Size (cm) - Depth 0.1 -Total Square Cm 0.15 -Photo Taken No -Exudate Amt None Present -Wound Margin Distinct, Outline Attached -Granulation Amt None Present (0 %) -Necrosis Amt Large (67-100%) -Necrotic Tissue Type Adherent Slough -Structure Exposed N/A -Texture (Meg-wound Skin Appearance) Scarring -Moisture (Meg-wound Skin Appearance No Abnormality ) -Color (Meg-wound Skin Appearance) Hemosiderin Staining,Rubor -Temperature (Meg-wound Skin No Abnormality Appearance) (Pt Warm) -Tenderness on Palpation (Meg-wound No Skin Appearance) -Ulcer Cleansing Wound Cleanser -Foul Odor after Cleansing No -Anesthetic Used 5% Lidocaine Gel #8- RT LAT CALF -Current Size (cm) - Length 0 -Current Size (cm) - Width 0 -Current Size (cm) - Depth 0 -Total Square Cm 0 -Photo Taken Yes -Exudate Amt None Present -Wound Margin Flat & Intact -Granulation Amt Large (67-100%) -Granulation Quality [place] -Necrosis Amt None Present (0 %) -Structure Exposed N/A -Texture (Meg-wound Skin Appearance) Scarring -Moisture (Meg-wound Skin Appearance No Abnormality ) -Color (Meg-wound Skin Appearance) Hemosiderin Staining -Temperature (Meg-wound Skin No Abnormality Appearance) (Pt Warm) -Tenderness on Palpation (Meg-wound No Skin Appearance) -Ulcer Cleansing Wound Cleanser -Foul Odor after Cleansing No #7 RIGHT LOWER PERRY -Current Size (cm) - Length 0 -Current Size (cm) - Width 0 -Current Size (cm) - Depth 0 -Total Square Cm 0 -Photo Taken No -Exudate Amt None Present -Wound Margin Distinct, Outline Attached -Granulation Amt Large (67-100%) -Granulation Quality [place] -Necrosis Amt None Present (0 %) -Structure Exposed N/A -Texture (Meg-wound Skin Appearance) Scarring -Moisture (Meg-wound Skin Appearance No Abnormality ) -Color (Meg-wound Skin Appearance) Hemosiderin Staining -Ulcer Cleansing Wound Cleanser -Foul Odor after Cleansing No #6 RIGHT LATERAL LE -Current Size (cm) - Length 0 -Current Size (cm) - Width 0 -Current Size (cm) - Depth 0 -Total Square Cm 0 -Photo Taken No -Exudate Amt None Present -Wound Margin Flat & Intact -Granulation Amt Large (67-100%) -Granulation Quality [place] -Necrosis Amt None Present (0 %) -Structure Exposed N/A -Texture (Meg-wound Skin Appearance) Scarring -Moisture (Meg-wound Skin Appearance No Abnormality ) -Color (Meg-wound Skin Appearance) Hemosiderin Staining -Tenderness on Palpation (Meg-wound No Skin Appearance) -Ulcer Cleansing Wound Cleanser -Foul Odor after Cleansing No [Edema Assessment] -Right Calf (cm) 62.7 -Right Ankle (cm) 35.3 -Left Calf (cm) 50.6 -Left Ankle (cm) 31.6 WC - Nurse 2 - General Ulcer CM Notes Start: 10/23/18 11:45 Freq: Status: Active Protocol: Activity Type Activity Date Activity User E-Sign Co-Sign Detail Recorded Client Recorded Date Recorded By Document 10/30/18 16:10 MELINDA [id number] 10/30/18 16:13 MELINDA 10/30/18 16:10 Wound Center Nurse 2 [Procedure/Treatment] #9 Right Post Calf Cluster -Correct Patient No -Correct Side, Site, Position No -Correct Procedure No -Procedure Performed No -Post Debridement Size (cm) - Length 0 -Post Debridement Size (cm) - Width 0 -Post Debridement Size (cm) - Depth 0 -Total Square Cm 0 -Wound/Ulcer Outcome Healed- Epithelialized #8- RT LAT CALF -Correct Patient No -Correct Side, Site, Position No -Correct Procedure No -Procedure Performed No -Post Debridement Size (cm) - Length 0 -Post Debridement Size (cm) - Width 0 -Post Debridement Size (cm) - Depth 0 -Total Square Cm 0 -Wound/Ulcer Outcome Healed- Epithelialized #7 RIGHT LOWER PERRY -Correct Patient No -Correct Side, Site, Position No -Correct Procedure No -Procedure Performed No -Post Debridement Size (cm) - Length 0 -Post Debridement Size (cm) - Width 0 -Post Debridement Size (cm) - Depth 0 -Total Square Cm 0 -Wound/Ulcer Outcome Healed- Epithelialized #6 RIGHT LATERAL LE -Correct Patient No -Correct Side, Site, Position No -Correct Procedure No -Procedure Performed No -Post Debridement Size (cm) - Length 0 -Post Debridement Size (cm) - Width 0 -Post Debridement Size (cm) - Depth 0 -Total Square Cm 0 -Wound/Ulcer Outcome Healed- Epithelialized [See Physician Procedure note for Specifics] Pain Scale: 0-10 Numeric [Pain] -Is Patient Pain Free? Yes Musculoskeletal: No Tenderness to Palpation of Joints or Extremities, Muscle Wasting Neurological: Sensory exam intact to light touch and pain Psych/Mental Status: Normal Affect, Appropriate Debridement Note Post-Debridement Measurements/Treatment WC - Nurse 2 - General Ulcer CM Notes Start: 10/23/18 11:45 Freq: Status: Active Protocol: Activity Type Activity Date Activity User E-Sign Co-Sign Detail Recorded Client Recorded Date Recorded By Document 10/23/18 12:17 MELINDA [id number] 10/23/18 12:20 Document 10/30/18 16:10 [id number] 10/30/18 16:13 10/23/18 10/30/18 12:17 16:10 Wound Center Nurse 2 #9 Right Post Calf Cluster -Time 12:18 -Correct Patient Yes No -Correct Side, Site, Position Yes No -Correct Procedure Yes No -Procedure Performed Yes No -Type of Procedure Debridement -Clinical Debridement Subcutaneous -Post Debridement Size (cm) - Length 0.9 0 -Post Debridement Size (cm) - Width 0.4 0 -Post Debridement Size (cm) - Depth 0.2 0 -Total Square Cm 0.36 0 -Wound/Ulcer Outcome Not Healed Healed- Epithelialized -Ulcer Cleansing Rinsed/ Irrigated with Saline -Foul Odor after Cleansing No -Bioengineered Tissue No -Bleeding Controlled with Pressure -Offloading No -Treatment Response Procedure Tolerated Well #8- RT LAT CALF -Time 12:18 -Correct Patient Yes No -Correct Side, Site, Position Yes No -Correct Procedure Yes No -Procedure Performed Yes No -Type of Procedure Debridement -Clinical Debridement Subcutaneous -Post Debridement Size (cm) - Length 0.3 0 -Post Debridement Size (cm) - Width 0.4 0 -Post Debridement Size (cm) - Depth 0.1 0 -Total Square Cm 0.12 0 -Wound/Ulcer Outcome Not Healed Healed- Epithelialized -Ulcer Cleansing Rinsed/ Irrigated with Saline -Foul Odor after Cleansing No -Bioengineered Tissue No -Bleeding Controlled with Pressure -Offloading No -Treatment Response Procedure Tolerated Well #7 RIGHT LOWER PERRY -Time 12:19 -Correct Patient Yes No -Correct Side, Site, Position Yes No -Correct Procedure Yes No -Procedure Performed Yes No -Type of Procedure Debridement -Clinical Debridement Subcutaneous -Post Debridement Size (cm) - Length 1 0 -Post Debridement Size (cm) - Width 2 0 -Post Debridement Size (cm) - Depth 0.1 0 -Total Square Cm 2 0 -Wound/Ulcer Outcome Not Healed Healed- Epithelialized -Ulcer Cleansing Rinsed/ Irrigated with Saline -Foul Odor after Cleansing No -Bioengineered Tissue No -Bleeding Controlled with Pressure -Offloading No -Treatment Response Procedure Tolerated Well #6 RIGHT LATERAL LE -Time 12:19 -Correct Patient Yes No -Correct Side, Site, Position Yes No -Correct Procedure Yes No -Procedure Performed Yes No -Type of Procedure Debridement -Clinical Debridement Subcutaneous -Post Debridement Size (cm) - Length 0.2 0 -Post Debridement Size (cm) - Width 0.2 0 -Post Debridement Size (cm) - Depth 0.1 0 -Total Square Cm 0.04 0 -Wound/Ulcer Outcome Not Healed Healed- Epithelialized -Ulcer Cleansing Rinsed/ Irrigated with Saline -Foul Odor after Cleansing No -Bioengineered Tissue No -Bleeding Controlled with Pressure -Offloading No -Treatment Response Procedure Tolerated Well Pain Scale: 0-10 Numeric Is Patient Pain Free? Yes Yes No debridement was completed today - All ulcer sites were healed Assessment/Plan Active Problems Maceration of skin (Chronic) left lower leg Bilateral lower extremity edema (Chronic) Malnutrition (Chronic) Delayed wound healing (Chronic) Lymphedema (Chronic) Assessment: Healed right leg ulcers. Resolved cellulitis-MRSA. ruled out deep venous thrombosis right lower extremity. Left lower leg ulcers healed (chronic skin irritation and callous remains). New onset maceration left lower extremity with no signs of infection. Bilateral venous insufficiency. Lymphedema. Morbid obesity. No infection today. Malnutrition suspected. Leg contracture left. Walking difficulty. Left ankle and foot pain. Posterior tibialis tendon dysfunction left Plan: Ms. Carter presents for follow-up of right lower extremity ulcers. No ulcers are noted today therefore debridement was not performed. Her cellulitis of right lower externally has resolved and she is complete the course of doxycycline. Her labs were previously reviewed. Her previous venous Doppler was also reviewed which was negative for deep venous thrombosis. She was updated with this information previously. The maceration is onto the left lower extremity she was advised to change a dry gauze dressing to the site. She will follow-up with the wound healing center in 2 weeks to confirm continued closure. The ulcers have healed at this time. She has high risk and I would like to check the sites. She will return to the foot and ankle center next for fitting and dispersal of the updated left ankle foot orthotic.
[2018-11-13 15:20] VITALS: BP 147/80; PULSE 103; RESP 22; TEMP 36.2; BMI 58.1
--- NOTE | 2018-11-13 16:18 | PN.PCM_ITS ---
(1) Maceration of skin Status: Resolved Current Visit: Yes Code(s): L98.8 - Other specified dis orders of the skin and subcutaneous tissue Comment: left lower leg (2) Ulcer of right lower extremity with fat layer exposed Status: Resolved Current Visit: Yes Code(s): L97.912 - Non-pressure chronic ulcer of unspecified part of right lower leg with fat layer exposed (3) Cellulitis of right lower extremity Status: Resolved Current Visit: Yes Code(s): L03.115 - Cellulitis of right lower limb (4) Bilateral lower extremity edema Status: Chronic Current Visit: Yes Code(s): R60.0 - Localized edema (5) Malnutrition Status: Chronic Current Visit: Yes Code(s): E46 - Unspecified protein-manan orie malnutrition (6) Delayed wound healing Status: Chronic Current Visit: Yes Code(s): T14.8XXD - Other injury of unspecified body region, subsequent encounter (7) Lymphedema Status: Chronic Current Visit: Yes Code(s): I89.0 - Lymphedema, not elsewhere classified (8) Physical deconditioning Status: Chronic Current Visit: Yes Code(s): R53.81 - Other malaise (9) Walking difficulty due to ankle and foot Status: Chronic Current Visit: Yes Code(s): R26.2 - Difficulty in walking, not elsewhere classified (10) Obesity Status: Chronic Current Visit: Yes Qualifiers: Body mass index: BMI 50.0-59.9 Code(s): E66.9 - Obesity, unspecified Type of Wound Date of Service: 11/14/18 Chief Complaint: right leg infection resolved. right leg ulcers healed History of Wound: This 43-year-old female returns to clinic for left foot ulcer that remains healed. She also follows up for right leg ulcers which have healed. She no longer has drainage or redness. she denies drainage. She denies fever, chill, nausea, vomiting. She was fitted with an updated left lower extremity ankle-foot orthotic last week at the [facility] center and completed the breakin process. She is still not able to apply her compression garments on her own and denies her family or friends can provide help. She did not make contact with spd manager to schedule her consultation for obesity management. Progress of Wound: Healed right leg ulcers. Resolved cellulitis right lower extremity. Maceration left lower extremity and heel - Physical Exam Vital Signs Temp Pulse Resp BP 97.1 F L 103 H 22 H 147/80 H 11/13/18 15:20 11/13/18 15:20 11/13/18 15:20 11/13/18 15:20 General: Alert, Oriented x3, Cooperative, No apparent distress HEENT: Atraumatic Extremities: No cyanosis, Capillary Refill Less than 3 Seconds, No Calf Tenderness - negative zainab and meza signs bilateral, Diminished Peripheral Pulses, Edema - right more than left lower extremity with hyperpigmentation. lymphedema suspected Skin: Ulcer/ Wound - no ulcers today or weeping. full epithelialization noted bilateral. no maceration seen. callous left heel is well trimmed. no blister, infection, erythema or streaking noted Wound Measurements and Assessment WC - Nurse 1 - General Ulcer Measurement Start: 10/23/18 11:45 Freq: Status: Active Protocol: Activity Type Activity Date Activity User E-Sign Co-Sign Detail Recorded Client Recorded Date Recorded By Document 11/13/18 15:20 DL [id number] 11/13/18 15:26 DL 11/13/18 15:20 Wound Center Nurse 1 [Edema Assessment] -Right Calf (cm) 61 -Right Ankle (cm) 34 -Left Calf (cm) 48 -Left Ankle (cm) 31 WC - Nurse 2 - General Ulcer CM Notes Start: 10/23/18 11:45 Freq: Status: Active Protocol: Activity Type Activity Date Activity User E-Sign Co-Sign Detail Recorded Client Recorded Date Recorded By Document 11/13/18 16:08 AN [id number] 11/13/18 16:08 AN 11/13/18 16:08 Pain Scale: 0-10 Numeric [Pain] -Is Patient Pain Free? Yes Musculoskeletal: No Tenderness to Palpation of Joints or Extremities, Muscle Wasting, - - previous club foot correction noted bilateral with rectus lower extremities. compartments soft. 5/5 ankle muscle strength noted. unable to reach legs for compression garment application. AROM digits bilateral Neurological: Sensory exam intact to light touch and pain Psych/Mental Status: Normal Affect, Appropriate Debridement Note Post-Debridement Measurements/Treatment WC - Nurse 2 - General Ulcer CM Notes Start: 10/23/18 11:45 Freq: Status: Active Protocol: Activity Type Activity Date Activity User E-Sign Co-Sign Detail Recorded Client Recorded Date Recorded By Document 10/23/18 12:17 MELINDA [id number] 10/23/18 12:20 Document 10/30/18 16:10 [id number] 10/30/18 16:13 Document 11/13/18 16:08 AN [id number] 11/13/18 16:08 AN 10/23/18 10/30/18 11/13/18 12:17 16:10 16:08 Wound Center Nurse 2 #9 Right Post Calf Cluster -Time 12:18 -Correct Patient Yes No -Correct Side, Site, Position Yes No -Correct Procedure Yes No -Procedure Performed Yes No -Type of Procedure Debridement -Clinical Debridement Subcutaneous -Post Debridement Size (cm) - Length 0.9 0 -Post Debridement Size (cm) - Width 0.4 0 -Post Debridement Size (cm) - Depth 0.2 0 -Total Square Cm 0.36 0 -Wound/Ulcer Outcome Not Healed Healed- Epithelialized -Ulcer Cleansing Rinsed/ Irrigated with Saline -Foul Odor after Cleansing No -Bioengineered Tissue No -Bleeding Controlled with Pressure -Offloading No -Treatment Response Procedure Tolerated Well #8- RT LAT CALF -Time 12:18 -Correct Patient Yes No -Correct Side, Site, Position Yes No -Correct Procedure Yes No -Procedure Performed Yes No -Type of Procedure Debridement -Clinical Debridement Subcutaneous -Post Debridement Size (cm) - Length 0.3 0 -Post Debridement Size (cm) - Width 0.4 0 -Post Debridement Size (cm) - Depth 0.1 0 -Total Square Cm 0.12 0 -Wound/Ulcer Outcome Not Healed Healed- Epithelialized -Ulcer Cleansing Rinsed/ Irrigated with Saline -Foul Odor after Cleansing No -Bioengineered Tissue No -Bleeding Controlled with Pressure -Offloading No -Treatment Response Procedure Tolerated Well #7 RIGHT LOWER PERRY -Time 12:19 -Correct Patient Yes No -Correct Side, Site, Position Yes No -Correct Procedure Yes No -Procedure Performed Yes No -Type of Procedure Debridement -Clinical Debridement Subcutaneous -Post Debridement Size (cm) - Length 1 0 -Post Debridement Size (cm) - Width 2 0 -Post Debridement Size (cm) - Depth 0.1 0 -Total Square Cm 2 0 -Wound/Ulcer Outcome Not Healed Healed- Epithelialized -Ulcer Cleansing Rinsed/ Irrigated with Saline -Foul Odor after Cleansing No -Bioengineered Tissue No -Bleeding Controlled with Pressure -Offloading No -Treatment Response Procedure Tolerated Well #6 RIGHT LATERAL LE -Time 12:19 -Correct Patient Yes No -Correct Side, Site, Position Yes No -Correct Procedure Yes No -Procedure Performed Yes No -Type of Procedure Debridement -Clinical Debridement Subcutaneous -Post Debridement Size (cm) - Length 0.2 0 -Post Debridement Size (cm) - Width 0.2 0 -Post Debridement Size (cm) - Depth 0.1 0 -Total Square Cm 0.04 0 -Wound/Ulcer Outcome Not Healed Healed- Epithelialized -Ulcer Cleansing Rinsed/ Irrigated with Saline -Foul Odor after Cleansing No -Bioengineered Tissue No -Bleeding Controlled with Pressure -Offloading No -Treatment Response Procedure Tolerated Well Pain Scale: 0-10 Numeric Is Patient Pain Free? Yes Yes Yes No debridement was completed today - healed today Assessment/Plan Active Problems Physical deconditioning (Chronic) Walking difficulty due to ankle and foot (Chronic) Obesity (Chronic) Bilateral lower extremity edema (Chronic) Malnutrition (Chronic) Delayed wound healing (Chronic) Lymphedema (Chronic) Assessment: Healed right leg ulcers. Resolved cellulitis-MRSA. ruled out deep venous thrombosis right lower extremity. Left lower leg ulcers healed (chronic skin irritation and callous remains)maceration resolved. Lymphedema. Morbid obesity. No infection today. Malnutrition suspected. Leg contracture left. Walking difficulty. Left ankle and foot pain. Posterior tibialis tendon dysfunction left Plan: Ms. Carter presents for follow-up of right lower extremity ulcers. No ulcers are noted today therefore debridement was not performed. Her cellulitis of right lower externally has resolved and she is complete the course of doxycycline. She no longer has ulcers to the left lower extremity or weeping today either. The foot and ankle left lower extremity device fits well and her break in process was completed. To wear with daily activities as advised. She denies new irritation. I am concerned she is unable to don the compression garments after training was reviewed on several occasions.I referred her to the spd manager for weight loss which I suspect will help her mobility and reduce some of her extremity edema. She has not made contact yet and she was advised to follow up on phone calls until it is scheduled. It is imperative she wears the compression garments or there is a high risk of wound return. I also referred her physical therapy for conditioning, mobility, gait training, compression garment training and weight loss. She is amendable to attend [facility] physical therapy. SHe is discharged from the wound healing center at this time. To follow up at the foot & ankle center in 4-6 weeks or call sooner if questions or concerns. I answered all of her questions.
[2018-11-20 10:01] VITALS: BP 163/95; PULSE 88; RESP 18; TEMP 36.7; BMI 58.1
--- NOTE | 2018-11-20 13:40 | PCM.WC.PN ---
(1) Ulcer of left lower extremity, limited to breakdown of skin Status: Acute Code(s): L97.921 - Non-pressure chronic ulcer of unspecified part of left lower leg limited to breakdown of skin (2) Maceration of skin Status: Resolved Code(s): L98.8 - Other specified disorders of the skin and subcutaneous tissue Comment: left lower leg (3) Ulcer of right lower extremity with fat layer exposed Status: Resolved Code(s): L97.912 - Non-pressure chronic ulcer of unspecified part of right lower leg with fat layer exposed (4) Bilateral lower extremity edema Status: Chronic Code(s): R60.0 - Localized edema (5) Malnutrition Status: Chronic Code(s): E46 - Unspecified protein-calorie malnutrition (6) Delayed wound healing Status: Chronic Code(s): T14.8XXD - Other injury of unspecified body region, subsequent encounter (7) Lymphedema Status: Chronic Code(s): I89.0 - Lymphedema, not elsewhere classified (8) Physical deconditioning Status: Chronic Code(s): R53.81 - Other malaise (9) Walking difficulty due to ankle and foot Status: Chronic Code(s): R26.2 - Difficulty in walking, not elsewhere classified (10) Obesity Status: Chronic Qualifiers: Body mass index: BMI 50.0-59.9 Code(s): E66.9 - Obesity, unspecified Type of Wound Date of Service: 11/23/18 Chief Complaint: Left lower leg weeping History of Wound: This 43-year-old female returns to clinic for left foot ulcer that remains healed. However the weeping has returned and she is concerned that this has reopened. She denies drainage or ulcers to the right lower extremity. She denies fever, chill, nausea, vomiting. She was fitted with an updated left lower extremity ankle-foot orthotic. She is still not able to apply her compression garments on her own and denies her family or friends can provide help. She did not make contact with [facility] to schedule her consultation for obesity management or schedule her physical therapy referral sessions yet. Progress of Wound: Left lower extremity ulcer is healed but the weeping has returned and this is considered new breakdown. - Physical Exam Vital Signs Temp Pulse Resp BP 98.0 F 88 18 163/95 H 11/20/18 10:01 11/20/18 10:01 11/20/18 10:01 11/20/18 10:01 General: Alert, Oriented x3, Cooperative, No apparent distress Extremities: No cyanosis, Capillary Refill Less than 3 Seconds, No Calf Tenderness - Negative Elena and Briseno signs bilateral, Diminished Peripheral Pulses, Edema Skin: Ulcer/ Wound - No purulence, erythema, streaking, odor, infection. There is subhemorrhagic tissue noted to the posterior left hindfoot and ankle with some mild maceration. The skin is atrophic and hairless at this site. No open lesions right lower extremity Wound Measurements and Assessment - Nurse 2 - General Ulcer CM Notes Start: 10/23/18 11:45 Freq: Status: Active Protocol: Activity Type Activity Date Activity User E-Sign Co-Sign Detail Recorded Client Recorded Date Recorded By Document 11/20/18 10:28 AN [id number] 11/20/18 10:28 AN 11/20/18 10:28 Pain Scale: 0-10 Numeric [Pain] -Is Patient Pain Free? Yes Musculoskeletal: No Tenderness to Palpation of Joints or Extremities, Muscle Wasting, - - Clubfoot correction bilateral lower extremities remain in rectus position. left ankle foot orthotic brace is noted and well fitted. Neurological: Sensory exam intact to light touch and pain Psych/Mental Status: Normal Affect, Appropriate Debridement Note Post-Debridement Measurements/Treatment WC - Nurse 2 - General Ulcer Notes Start: 10/23/18 11:45 Freq: Status: Active Protocol: Activity Type Activity Date Activity User E-Sign Co-Sign Detail Recorded Client Recorded Date Recorded By Document 10/23/18 12:17 [id number] 10/23/18 12:20 Document 10/30/18 16:10 [id number] 10/30/18 16:13 Document 11/13/18 16:08 AN [id number] 11/13/18 16:08 AN Document 11/20/18 10:28 AN [id number] 11/20/18 10:28 AN 10/23/18 10/30/18 11/13/18 12:17 16:10 16:08 Wound Center Nurse 2 #9 Right Post Calf Cluster -Time 12:18 -Correct Patient Yes No -Correct Side, Site, Position Yes No -Correct Procedure Yes No -Procedure Performed Yes No -Type of Procedure Debridement -Clinical Debridement Subcutaneous -Post Debridement Size (cm) - Length 0.9 0 -Post Debridement Size (cm) - Width 0.4 0 -Post Debridement Size (cm) - Depth 0.2 0 -Total Square Cm 0.36 0 -Wound/Ulcer Outcome Not Healed Healed- Epithelialized -Ulcer Cleansing Rinsed/ Irrigated with Saline -Foul Odor after Cleansing No -Bioengineered Tissue No -Bleeding Controlled with Pressure -Offloading No -Treatment Response Procedure Tolerated Well #8- RT LAT CALF -Time 12:18 -Correct Patient Yes No -Correct Side, Site, Position Yes No -Correct Procedure Yes No -Procedure Performed Yes No -Type of Procedure Debridement -Clinical Debridement Subcutaneous -Post Debridement Size (cm) - Length 0.3 0 -Post Debridement Size (cm) - Width 0.4 0 -Post Debridement Size (cm) - Depth 0.1 0 -Total Square Cm 0.12 0 -Wound/Ulcer Outcome Not Healed Healed- Epithelialized -Ulcer Cleansing Rinsed/ Irrigated with Saline -Foul Odor after Cleansing No -Bioengineered Tissue No -Bleeding Controlled with Pressure -Offloading No -Treatment Response Procedure Tolerated Well #7 RIGHT LOWER PERRY -Time 12:19 -Correct Patient Yes No -Correct Side, Site, Position Yes No -Correct Procedure Yes No -Procedure Performed Yes No -Type of Procedure Debridement -Clinical Debridement Subcutaneous -Post Debridement Size (cm) - Length 1 0 -Post Debridement Size (cm) - Width 2 0 -Post Debridement Size (cm) - Depth 0.1 0 -Total Square Cm 2 0 -Wound/Ulcer Outcome Not Healed Healed- Epithelialized -Ulcer Cleansing Rinsed/ Irrigated with Saline -Foul Odor after Cleansing No -Bioengineered Tissue No -Bleeding Controlled with Pressure -Offloading No -Treatment Response Procedure Tolerated Well #6 RIGHT LATERAL LE -Time 12:19 -Correct Patient Yes No -Correct Side, Site, Position Yes No -Correct Procedure Yes No -Procedure Performed Yes No -Type of Procedure Debridement -Clinical Debridement Subcutaneous -Post Debridement Size (cm) - Length 0.2 0 -Post Debridement Size (cm) - Width 0.2 0 -Post Debridement Size (cm) - Depth 0.1 0 -Total Square Cm 0.04 0 -Wound/Ulcer Outcome Not Healed Healed- Epithelialized -Ulcer Cleansing Rinsed/ Irrigated with Saline -Foul Odor after Cleansing No -Bioengineered Tissue No -Bleeding Controlled with Pressure -Offloading No -Treatment Response Procedure Tolerated Well Pain Scale: 0-10 Numeric Is Patient Pain Free? Yes Yes Yes 11/20/18 10:28 Wound Center Nurse 2 #9 Right Post Calf Cluster -Time -Correct Patient -Correct Side, Site, Position -Correct Procedure -Procedure Performed -Type of Procedure -Clinical Debridement -Post Debridement Size (cm) - Length -Post Debridement Size (cm) - Width -Post Debridement Size (cm) - Depth -Total Square Cm -Wound/Ulcer Outcome -Ulcer Cleansing -Foul Odor after Cleansing -Bioengineered Tissue -Bleeding Controlled with -Offloading -Treatment Response #8- RT LAT CALF -Time -Correct Patient -Correct Side, Site, Position -Correct Procedure -Procedure Performed -Type of Procedure -Clinical Debridement -Post Debridement Size (cm) - Length -Post Debridement Size (cm) - Width -Post Debridement Size (cm) - Depth -Total Square Cm -Wound/Ulcer Outcome -Ulcer Cleansing -Foul Odor after Cleansing -Bioengineered Tissue -Bleeding Controlled with -Offloading -Treatment Response #7 RIGHT LOWER PERRY -Time -Correct Patient -Correct Side, Site, Position -Correct Procedure -Procedure Performed -Type of Procedure -Clinical Debridement -Post Debridement Size (cm) - Length -Post Debridement Size (cm) - Width -Post Debridement Size (cm) - Depth -Total Square Cm -Wound/Ulcer Outcome -Ulcer Cleansing -Foul Odor after Cleansing -Bioengineered Tissue -Bleeding Controlled with -Offloading -Treatment Response #6 RIGHT LATERAL LE -Time -Correct Patient -Correct Side, Site, Position -Correct Procedure -Procedure Performed -Type of Procedure -Clinical Debridement -Post Debridement Size (cm) - Length -Post Debridement Size (cm) - Width -Post Debridement Size (cm) - Depth -Total Square Cm -Wound/Ulcer Outcome -Ulcer Cleansing -Foul Odor after Cleansing -Bioengineered Tissue -Bleeding Controlled with -Offloading -Treatment Response Pain Scale: 0-10 Numeric Is Patient Pain Free? Yes No debridement was completed today Assessment/Plan Assessment: Healed right leg ulcers. Left lower leg ulcers healed (chronic skin irritation and new weeping consistent with ulcer with skin layer exposure only). maceration is returning. Lymphedema. Morbid obesity. No infection today. Malnutrition suspected. Leg contracture left. Walking difficulty. Left ankle and foot pain. Posterior tibialis tendon dysfunction left Plan: Ms. Carter presents for follow-up of right lower extremity ulcers which remain healed today. She also has return of maceration and skin discontinuity to the left lower extremity. She continues with her ankle-foot orthotic which fits well and she denies rubbing directly over the ulcer site today. I am concerned she is unable to don the compression garments after training was reviewed on several occasions.I referred her to the [facility] ch[facility] for weight loss which I suspect will help her mobility and reduce some of her extremity edema. She has not made contact yet and she was advised to follow up on phone calls until it is scheduled. It is imperative she wears the compression garments or there is a high risk of wound return. I also referred her physical therapy for conditioning, mobility, gait training, compression garment training and weight loss. She is amendable to attend [facility]. To follow-up with the wound healing center in 1 week, sooner if she is any questions or concerns. She understands the lifestyle changes needed to address the etiology of her chronic recurrent ulcerations.
== END 2018-11-20 23:59 ==
LOC: WC 09:30
PROVIDERS: Referring Provider Podiatrist; Visit Provider Podiatrist
DX: I87.2 Venous insufficiency (chronic) (peripheral) (principal); R60.0 Localized edema; M79.604 Pain in right leg; Z86.718 Personal history of other venous thrombosis and embolism; L97.812 Non-pressure chronic ulcer of other part of right lower leg with fat layer exposed; I89.0 Lymphedema, not elsewhere classified; E66.01 Morbid (severe) obesity due to excess calories; Z68.43 Body mass index [BMI] 50.0-59.9, adult; Z71.3 Dietary counseling and surveillance
CPT/HCPCS: 11042; 36415; 80053; 85025; 85652; 86140; 87070; 87075; 87077; 87186; 87205; 87640; 93971; 99212; G0463

== ENCOUNTER 2018-12-09 16:29 | Inpatient (IN) | payer MEDICARE, MEDICAID, SELFPAY ==
[2018-11-27 15:05] VITALS: BMI 58.1
[2018-12-09 16:30] VITALS: BP 168/115; PULSE 124; RESP 25; TEMP 37.2; O2SAT 94; BMI 57.7
--- NOTE | 2018-12-09 17:00 | ED.VIS.GEN ---
History of Present Illness Chief Complaint: Wound Detail of Chief Complaint: Left thigh wound Informant: Patient Onset: Days Current Severity: Moderate Maximum Severity: Moderate Narrative: Patient presents with a wound to the left lateral proximal thigh. She states she noted a small pimple-like lesion mid to late last week. She was seen at an urgent care on Sunday and given a prescription for doxycycline. In spite of 5 doses of antibiotics she states that area of redness continues to enlarge. She went to the wound center today where she is a known patient. The doctors had already left for the day but 2 nurses looked at the area and felt she needed to be seen in the emergency room. She has not noted fever or chills. She has had some spontaneous drainage from the wound. Past Medical History - Allergies and Home Meds Allergies/Adverse Reactions: Allergies amoxicillin Allergy (Verified 12/09/18 16:30) Other cephalexin Allergy (Verified 12/09/18 16:30) Other naproxen Allergy (Verified 12/09/18 16:30) Other sulfamethoxazole [From Bactrim] Allergy (Verified 12/09/18 16:30) Other trimethoprim [From Bactrim] Allergy (Verified 12/09/18 16:30) Other Primary Care Physician: Marcela Sargent MD [Primary Care Provider] - Prior records reviewed: Yes Past Medical History: - - Reviewed Surgical History: - - The patient has undergone 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 She is also undergone several surgeries for anal fistula. Smoking Status: Never smoker - Family History Maternal Family History: Reports: No pertinent history Paternal Family History: Reports: No pertinent history Review of Systems General: Denies: Chills, Fever Eyes: Denies: Visual changes - bilaterally ENT: Denies: Bilateral ear pain Cardiovascular: Denies: Chest pain Respiratory: Denies: Dyspnea, Cough Gastrointestinal: Denies: Abdominal pain Musculoskeletal: Reports: Extremity Pain Skin: Reports: Wounds Neurological: Denies: Headache Endocrine: Denies: Polyuria, Polydipsia Hematologic: Denies: Easy bruising Allergy: Denies: Uticaria Physical Exam Vital Signs/Narrative: Vital Signs Temp Pulse Resp BP Pulse Ox 12/09/18 16:30 98.9 F 124 H 25 H 168/115 H 94 Inital Vital Signs reviewed: Yes General: Well nourished, Well developed ENT: Moist mucous membranes Neck: Supple Cardiovascular: Tachycardia Respiratory: No distress, CTA bilaterally Abdomen: Soft, Nontender Extremities: - - Patient has a 3 cm abscess to the lateral proximal left thigh with surrounding cellulitis measuring 10 x 15 cm. No spontaneous drainage at this time. Neurological: Alert, Oriented x3 Psychological: Normal affect Diagnostic/Tx/Re-eval Impressions Lower Extremity CT 12/09/18 18:03 IMPRESSION: No fracture. Minimal subcutaneous soft tissue swelling overlying the left hip. No evidence of abscess. Electronically Signed: Venkata Meyer DO at 19:52 EDT Tel , Service support , 12/09/18 18:03 CT Lower [Extremity Lower without Contra] [CT] Stat Laboratory Results 12/09/18 12/09/18 12/09/18 17:34 17:34 17:34 WBC 7.0 RBC 3.59 L Hgb 10.5 L Hct 32.7 L MCV 91.1 MCH 29.2 MCHC 32.1 RDW Std Deviation 50.2 H RDW Coeff of Julissa 15.0 H Plt Count 165 MPV 10.6 Immature Gran % (Auto) 0.300 Neut % (Auto) 75.6 H Lymph % (Auto) 15.0 L [place] % (Auto) 7.5 Eos % (Auto) 1.3 Baso % (Auto) 0.3 Absolute Neuts (auto) 5.3 Absolute Lymphs (auto) 1.04 Nucleated RBC % 0 PT 25.6 H INR 2.3 Sodium 142 Potassium 4.1 Chloride 111 H Carbon Dioxide 28.0 Anion Gap 3 L BUN 19 H Creatinine 0.96 Estim Creat Clear Calc 74.24 Est GFR (MDRD) Af Amer 82 Est GFR (MDRD) Non-Af 68 BUN/Creatinine Ratio 19.9 Glucose 117 H Lactic Acid Calcium 8.6 12/09/18 17:35 WBC RBC Hgb Hct MCV MCH MCHC RDW Std Deviation RDW Coeff of Julissa Plt Count MPV Immature Gran % (Auto) Neut % (Auto) Lymph % (Auto) [place] % (Auto) Eos % (Auto) Baso % (Auto) Absolute Neuts (auto) Absolute Lymphs (auto) Nucleated RBC % PT INR Sodium Potassium Chloride Carbon Dioxide Anion Gap BUN Creatinine Estim Creat Clear Calc Est GFR (MDRD) Af Amer Est GFR (MDRD) Non-Af BUN/Creatinine Ratio Glucose Lactic Acid 2.0 Calcium - Medical Decision Making Blood work is grossly unremarkable. Patient was given vancomycin here as she has already failed doxycycline as an outpatient. Area of erythema is outlined. The center abscess looking lesion is not fluctuant and there is no drainage. I do not think this needs I&D at this time. I will speak with hospitalist regarding admission overnight for IV antibiotics and ensuring the cellulitis is improving. ED Disposition - Plan for ED Patient: Disposition: Acute Care [facility] Diagnosis: Cellulitis Referrals: Marcela Sargent MD [Primary Care Provider] -
[2018-12-09 17:42] VITALS: BP 136/83; PULSE 89; RESP 18; TEMP 36.6; O2SAT 98
[2018-12-09] MEDS: 0.9% Normal Saline 1,000 ML 150 ML IV (17:44)
[2018-12-09 17:51] LABS: Absolute Lymphocyte Count 1.04 X10^3/uL (0.83-4.51); Absolute Neutrophil Count 5.3 X10^3/uL (2.0-7.7); Basophil# 0.02 X10^3/uL; Basophil% 0.3 % (0-1); Eosinophil# 0.09 X10^3/uL; Eosinophils% 1.3 % (0-5); Hematocrit 32.7 % (37-47); Hemoglobin 10.5 g/dL (12.0-15.0); Lymphocyte # 1.04 X10^3/ul (4.0); Mean Corp Hgb Conc 32.1 g/dL (32-36); Mean Corpuscular Hgb 29.2 pg (27.0-32.0); Mean Corpuscular Volume 91.1 fL (81-99); Mean Platelet Vol. 10.6 fl (6.2-12.0); Monocyte# 0.52 X10^3/uL; Monocyte% 7.5 % (0-10); NRBC Flagged by Analyzer 0 % (0-5); Neutrophil # 5.26 X10^3/uL (2.7-7.7); Neutrophil % 75.6 % (47-70); Platelet Count 165 K/mm3 (150-450); RBC Distribution Width SD 50.2 fl (35.1-43.9); Red Blood Count 3.59 M/mm3 (4.2-5.4)
[2018-12-09 17:57] LABS: Anion Gap 3 (5-15); BUN 19 mg/dL (7-18); BUN/Creat Ratio 19.9 RATIO (10-20); Calcium,Total 8.6 mg/dL (8.5-10.1); Chloride 111 mmol/L (98-107); Creatinine, Serum 0.96 mg/dL (0.55-1.02); EST Glomerular Filtration Rate 68 mL/min (>60); Est Glom Filt Rate - Afr Amer 82 mL/min (>60); Estimated Creatinine Clearance 74.24 ml/min; Glucose 117 mg/dL (74-106); Potassium 4.1 mmol/L (3.5-5.1); Sodium Level 142 mmol/L (136-145)
[2018-12-09 18:03] LABS: International Normalized Ratio 2.3; Prothrombin Time (Protime)PT. 25.6 SECONDS (11.7-14.9)
--- NOTE | 2018-12-09 18:03 | CT_ITS ---
STUDY: CT LEFT HIP WITHOUT CONTRAST REASON FOR EXAM: Female, 43 years old. Left hip pain and redness. Rule out cellulitis RADIATION DOSAGE (If Supplied By Facility): CTDIvol = ( 82.25 ) mGy, DLP = ( 3992.80 ) mGycm TECHNIQUE: Transaxial imaging of the pelvis was performed with oral contrast, and without intravenous administration of contrast material. Individualized dose optimization techniques were used for this CT. COMPARISON: None. FINDINGS: No acute fracture. Normal mineralization. Very minimal soft tissue overlying the left hip in the subcutaneous tissues. No evidence of abscess. Intrapelvic organs are within normal limits CT/Extremity Lower without Contra IMPRESSION: No fracture. Minimal subcutaneous soft tissue swelling overlying the left hip. No evidence of abscess. Electronically Signed: Venkata Meyer DO at 19:52 EDT Tel , Service support ,
[2018-12-09 19:52] VITALS: BMI 57.8
[2018-12-09 20:20] VITALS: BP 109/45; PULSE 90; RESP 18; O2SAT 97
--- NOTE | 2018-12-09 21:31 | PCM.HP.STD ---
Problem List (1) Cellulitis Status: Acute (2) Maceration of skin Status: Resolved Comment: left lower leg (3) Physical deconditioning Status: Chronic (4) Walking difficulty due to ankle and foot Status: Chronic (5) Obesity Status: Chronic (6) Ulcer of left lower extremity, limited to breakdown of skin Status: Chronic (7) Ulcer of right lower extremity, limited to breakdown of skin Status: Chronic (8) Corns and callosities Status: Chronic (9) Cellulitis of right lower extremity Status: Resolved (10) Peripheral arterial disease Status: Chronic (11) Open wound of right lower extremity Status: Acute (12) History of cellulitis Status: Acute (13) Chronic ulcer of left foot with fat layer exposed Status: Chronic (14) Bilateral lower extremity edema Status: Chronic (15) Left foot pain Status: Chronic (16) Chronic ulcer of left foot limited to breakdown of skin Status: Chronic (17) Chronic ulcer of left foot with fat layer exposed Status: Chronic (18) Ulcer of right lower extremity with fat layer exposed Status: Resolved (19) Ulcer of left lower extremity with fat layer exposed Status: Chronic (20) Malnutrition Status: Chronic (21) Delayed wound healing Status: Chronic (22) Lymphedema Status: Chronic (23) Ulcer of left lower extremity, limited to breakdown of skin Status: Resolved (24) Other acquired deformities of left foot Status: Chronic (25) Walking difficulty due to ankle and foot Status: Chronic (26) Left ankle pain Status: Chronic (27) Compliance poor Status: Chronic (28) Deep vein thrombosis of right lower limb Status: Ruled-out (29) 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 Status: Chronic (30) Varicose veins of right lower extremity with both ulcer of calf and inflammation Status: Chronic (31) 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 (32) Venous insufficiency of both lower extremities Status: Chronic (33) Chronic pain of right lower extremity Status: Chronic (34) Pain of left lower extremity Status: Chronic (35) History of pulmonary embolism Status: Chronic (36) Post-phlebitic syndrome Status: Chronic (37) Morbid obesity Status: Chronic (38) Irritable bowel syndrome (IBS) Status: Chronic (39) Arthritis Status: Chronic (40) Status post club foot correction at Status: Chronic (41) Anal fistula Status: Chronic (42) Venous hypertension, chronic, with inflammation Status: Chronic History of Present Illness Date of Admission: 12/09/18 Chief Complaint: left hip redness The patient is a 43 year old F with a significant history of super morbid obesity; MRSA; lymphedema and leg wound who goes to the wound care center; depression and PAD who presented to emergency department with redness of her left proximal lateral thigh. Her symptoms started in the past week and she was started on doxycycline by and at a walk-in clinic. Before presentation patient had taken 5 doses of dicyclomine. However she noted that the redness of the status site was increasing. Associated with symptoms is swelling and tenderness to the site. Patient went to the wound clinic on the same day of presentation and she was advised by the nurses at the wound clinic to come to emergency department. At the emergency department because of patient history of multiple drug allergies she was started on vancomycin. Past Medical History Past Medical History (Chronic Problems): Chronic Problems Physical deconditioning (Chronic) Walking difficulty due to ankle and foot (Chronic) Obesity (Chronic) Ulcer of left lower extremity, limited to breakdown of skin (Chronic) Ulcer of right lower extremity, limited to breakdown of skin (Chronic) Corns and callosities (Chronic) Peripheral arterial disease (Chronic) Chronic ulcer of left foot with fat layer exposed (Chronic) Bilateral lower extremity edema (Chronic) Left foot pain (Chronic) Chronic ulcer of left foot limited to breakdown of skin (Chronic) Chronic ulcer of left foot with fat layer exposed (Chronic) Ulcer of left lower extremity with fat layer exposed (Chronic) Malnutrition (Chronic) Delayed wound healing (Chronic) Lymphedema (Chronic) Other acquired deformities of left foot (Chronic) Walking difficulty due to ankle and foot (Chronic) Left ankle pain (Chronic) Compliance poor (Chronic) 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) Varicose veins of right lower extremity with both ulcer of calf and inflammation (Chronic) Current use of fci anticoagulation (Chronic) Venous insufficiency of both lower extremities (Chronic) Chronic pain of right lower extremity (Chronic) Pain of left lower extremity (Chronic) History of pulmonary embolism (Chronic) Post-phlebitic syndrome (Chronic) Morbid obesity (Chronic) Irritable bowel syndrome (IBS) (Chronic) Arthritis (Chronic) Status post club foot correction at (Chronic) Anal fistula (Chronic) Venous hypertension, chronic, with inflammation (Chronic) Allergies amoxicillin Allergy (Verified 12/09/18 16:30) Other cephalexin Allergy (Verified 12/09/18 16:30) Other naproxen Allergy (Verified 12/09/18 16:30) Other sulfamethoxazole [From Bactrim] Allergy (Verified 12/09/18 16:30) Other trimethoprim [From Bactrim] Allergy (Verified 12/09/18 16:30) Other Home Medications: Ambulatory Orders Medication Instructions Recorded Furosemide 20 mg PO PRN PRN 02/16/16 Calcium Carbonate/Vitamin D3 1 tab PO BID 12/13/17 [Calcium 600-Vit D3 500 Softgel] Ferrous Sulfate 325 mg PO DAILY 12/13/17 Loperamide [Imodium] 2 - 4 mg PO Q6H PRN PRN 12/13/17 Melatonin 3 mg PO QHS 12/13/17 Sertraline HCl [Zoloft] 25 mg PO DAILY 12/13/17 Warfarin [Coumadin] 5 mg PO SUMOWETHFR 12/13/17 Zinc Sulfate (50mg elemental) 220 mg PO QHS 12/13/17 [Zinc Sulfate] Acetaminophen [Tylenol] 1,000 mg PO Q6H PRN PRN 12/21/17 Ascorbic Acid [Vitamin C] 2,000 mg PO BID 12/21/17 Ergocalciferol [Vitamin D] 50,000 unit PO Q7D 12/21/17 Magnesium Oxide [Magnesium] 400 mg PO BID 12/21/17 Warfarin Sodium 4.5 mg PO TUSA 12/21/17 Surgical History: - - The patient has undergone 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 She is also undergone several surgeries for anal fistula. Psychiatric History: Depression DIRECTOR OF OCCUPATIONAL THERAPY History: No pertinent DIRECTOR OF OCCUPATIONAL THERAPY history Lives: With Family Smoking Status: Never smoker Tobacco Use: Non-smoker - *Family History Maternal History Items: Dementia, Heart Disease, Stroke Paternal History Items: Diabetes, Heart Disease, Stroke Review of Systems Constitutional: Denies: Chills, Fever, Weight Change HEENT: Denies: Head Aches, Sinus Congestion, Sinus Drainage Cardiovascular: Denies: Chest Pain, Palpitations Respiratory: Denies: Cough, Shortness of breath at rest, Sputum production Gastrointestinal: Denies: Abdominal Pain, Nausea, Vomiting Genitourinary: Denies: Dysuria Musculoskeletal: Denies: Joint Pain, Joint Tenderness Skin: Reports: Skin Changes - redness; swelling and pain to left lateral proximal hip, Wounds. Denies: Rash Neurological: Denies: Numbness, Tingling, Focal weakness Psychiatric: Denies: Anxiety, Depression, Homicidal Ideations, Suicidal Ideations Hematologic/ Lymphatic: Denies: Easy Bruising, Easy Bleeding VTE Information - Inpt Only VTE Present on Admission: No VTE Mechan Device Prophylaxis: None VTE Pharm Prophylaxis ordered?: No Reason prophylaxis not ordered:: Treatment Not Indicated - Coumadin continued. Patient Problems: Active and Suspected Problems Cellulitis (Acute) - Physical Exam General: Alert, Oriented x3, Cooperative, - - super morbidly obese HEENT: Atraumatic, PERRLA, EOMI, Normocephalic Neck: Supple, No JVD, Negative Carotid Bruits Lungs: Clear to auscultation, Normal air movement Cardiovascular: Regular rate, No murmurs Abdomen: Bowel Sounds Present, Soft, Non Tender Extremities: Edema - bilateral legs; right worse done left. Helaed wounds to right leg., Tenderness - R leg Skin: - - Redness to left lateral proxinal hip with excoriation in center of erythematous area. Induration to mid portion of site. Tender Musculoskeletal: No Tenderness to Palpation of Joints or Extremities Neurological: Cranial nerves II-XII grossly intact Psych/Mental Status: Normal Affect, Appropriate Vital Signs Temp Pulse Resp BP Pulse Ox 98 F 90 18 109/45 L 97 12/09/18 17:42 12/09/18 20:20 12/09/18 20:20 12/09/18 20:20 12/09/18 20:20 Oxygen Delivery Method Room Air Weight: 167.3 kg Body Mass Index (BMI) 57.7 Laboratory Tests Past 24 Hrs 12/09/18 12/09/18 12/09/18 17:34 17:34 17:34 WBC 7.0 RBC 3.59 L Hgb 10.5 L Hct 32.7 L MCV 91.1 MCH 29.2 MCHC 32.1 RDW Std Deviation 50.2 H RDW Coeff of Julissa 15.0 H Plt Count 165 MPV 10.6 Immature Gran % (Auto) 0.300 Neut % (Auto) 75.6 H Lymph % (Auto) 15.0 L [place] % (Auto) 7.5 Eos % (Auto) 1.3 Baso % (Auto) 0.3 Absolute Neuts (auto) 5.3 Absolute Lymphs (auto) 1.04 Nucleated RBC % 0 PT 25.6 H INR 2.3 Sodium 142 Potassium 4.1 Chloride 111 H Carbon Dioxide 28.0 Anion Gap 3 L BUN 19 H Creatinine 0.96 Estim Creat Clear Calc 74.24 Est GFR (MDRD) Af Amer 82 Est GFR (MDRD) Non-Af 68 BUN/Creatinine Ratio 19.9 Glucose 117 H Lactic Acid Calcium 8.6 12/09/18 17:35 WBC RBC Hgb Hct MCV MCH MCHC RDW Std Deviation RDW Coeff of Julissa Plt Count MPV Immature Gran % (Auto) Neut % (Auto) Lymph % (Auto) [place] % (Auto) Eos % (Auto) Baso % (Auto) Absolute Neuts (auto) Absolute Lymphs (auto) Nucleated RBC % PT INR Sodium Potassium Chloride Carbon Dioxide Anion Gap BUN Creatinine Estim Creat Clear Calc Est GFR (MDRD) Af Amer Est GFR (MDRD) Non-Af BUN/Creatinine Ratio Glucose Lactic Acid 2.0 Calcium Assessment/Plan All Active Problems Maceration of skin (Resolved) Cellulitis (Acute) Cellulitis of right lower extremity (Resolved) Open wound of right lower extremity (Acute) History of cellulitis (Acute) Ulcer of right lower extremity with fat layer exposed (Resolved) Ulcer of left lower extremity, limited to breakdown of skin (Resolved) Deep vein thrombosis of right lower limb (Ruled-out) Hematoma of right lower extremity (Resolved) Pulmonary embolism (Resolved) Ulcer of left ankle (Resolved) The patient is a 43 year old F with a significant history of super morbid obesity; MRSA lymphedema and leg wound who goes to the wound care center; depression and PAD who presented to emergency department with redness of her left proximal lateral thigh; swelling and tenderness consistent with likely cellulitis. Cellulitis of Left lateral proximal thigh Received vancomycin in the emergency department. We will continue vancomycin for history of MRSA. We will start patient on cefazolin for probable strep infection. Of note patient has a history of multiple antibiotics but stated that these allergies abdominal upset and diarrhea. Blood cultures are pending Wet-to-dry dressing for associated wound. Wound care consult Vitamin D deficiency Vitamin D supplementation continued Lymphedema Continue Aashish wrap to bilateral lower extremities. History of PE INR therapeutic Coumadin continued DVT prophylaxis Not indicated since patient is therapeutic on her Coumadin. Coumadin continued. Code Visit Inpatient E&M: 07039 Init Hosp L3
[2018-12-09 21:44] LABS: Reflex Lactate? Y
[2018-12-09 22:32] VITALS: BMI 56.0; BMI 56.1
[2018-12-09 22:36] LABS: Lactic Acid 1.3 mmol/L (0.4-2.0)
[2018-12-09 22:48] VITALS: BP 134/77; PULSE 87; RESP 18; TEMP 37.1; O2SAT 98
[2018-12-09] MEDS: Ascorbic Acid 500 MG Tablet 2000 MG PO (23:29)
[2018-12-09] MEDS: Calcium Carb/Vitamin D 1 TABLET Tablet PO (23:30)
[2018-12-09] MEDS: Magnesium Oxide 400 MG Tablet PO (23:30)
[2018-12-09] MEDS: Ferrous Sulfate 325 MG Tablet PO (23:30)
[2018-12-09] MEDS: Cefazolin 2 GM in 0.9% Normal Saline 100 ML IV (23:31)
[2018-12-09] MEDS: MELATONIN 3 MG TABLET PO (23:31)
[2018-12-09] MEDS: Acetaminophen 500 MG Tablet 1000 MG PO (23:51)
--- NOTE | 2018-12-10 00:23 | PCM.RX.CS ---
Consult Pharmacy has been consulted to manage selected antiobiotic: Vancomycin Type of Consult: New start Suspected Infection: Skin/Soft tissue Labs: Sodium 142 mmol/L (136-145) 12/09/18 17:34 Potassium 4.1 mmol/L (3.5-5.1) 12/09/18 17:34 Chloride 111 mmol/L (98-107) H 12/09/18 17:34 Carbon Dioxide 28.0 mmol/L (21.0-32.0) 12/09/18 17:34 3 (5-15) L 12/09/18 17:34 BUN 19 mg/dL (7-18) H 12/09/18 17:34 0.96 mg/dL (0.55-1.02) 12/09/18 17:34 Est GFR (MDRD) Af Amer 82 mL/min (>60) 12/09/18 17:34 Est GFR (MDRD) Non-Af 68 mL/min (>60) 12/09/18 17:34 19.9 RATIO (10-20) 12/09/18 17:34 Glucose 117 mg/dL (74-106) H 12/09/18 17:34 Weight used for dosin.4 kg Estimated Creatinine Clearance: 122.8 Goal Trough: 15-20 mcg/mL Pharmacy Plan for Drug Dosing: Pharmacy Service will continue to monitor and adjust dosing as required. Medications Vancomycin HCl 1,500 mg/ (Sodium Chloride) 530 mls @ 250 mls/hr IV Q8H EDUARD Discontinued Medications Vancomycin HCl 2,000 mg/ (Sodium Chloride) 540 mls @ 250 mls/hr IV X1 ONE Stop: 12/09/18 19:39 Last Admin: 12/09/18 17:43 Dose: 250 mls/hr Documented by: Follow-Up Labs: Trough Vancomycin Labs to be done on [date and time ordered]: 12/10 @ 7911
[2018-12-10 04:35] VITALS: BP 139/80; PULSE 75; RESP 18; TEMP 36.8; O2SAT 97
[2018-12-10 05:43] LABS: Absolute Lymphocyte Count 1.22 X10^3/uL (0.83-4.51); Absolute Neutrophil Count 3.3 X10^3/uL (2.0-7.7); Basophil# 0.04 X10^3/uL; Basophil% 0.8 % (0-1); Eosinophil# 0.09 X10^3/uL; Eosinophils% 1.8 % (0-5); Hematocrit 31.3 % (37-47); Hemoglobin 9.7 g/dL (12.0-15.0); Lymphocyte # 1.22 X10^3/ul (4.0); Lymphocyte % 23.8 % (19-41); Mean Corpuscular Hgb 28.2 pg (27.0-32.0); Mean Platelet Vol. 10.9 fl (6.2-12.0); Monocyte# 0.44 X10^3/uL; Monocyte% 8.6 % (0-10); NRBC Flagged by Analyzer 0 % (0-5); Neutrophil # 3.32 X10^3/uL (2.7-7.7); Neutrophil % 64.6 % (47-70); Platelet Count 162 K/mm3 (150-450); RBC Distribution Width CV 15.3 % (11.6-14.6); RBC Distribution Width SD 50.5 fl (35.1-43.9); Red Blood Count 3.44 M/mm3 (4.2-5.4); White Blood Count 5.1 K/mm3 (4.4-11.0)
[2018-12-10] MEDS: 0.9% Normal Saline 1,000 ML 150 ML IV ×3 (05:44→18:47)
[2018-12-10] MEDS: Cefazolin 2 GM in 0.9% Normal Saline 100 ML IV ×3 (05:44→22:47)
--- NOTE | 2018-12-10 06:02 | NURSING ---
Pt refusing HELEN wraps to Bilat. legs-states they make her itch too bad and keep her from resting.
[2018-12-10 06:06] LABS: Anion Gap 8 (5-15); BUN 18 mg/dL (7-18); BUN/Creat Ratio 22.9 RATIO (10-20); Calcium,Total 8.1 mg/dL (8.5-10.1); Chloride 112 mmol/L (98-107); Creatinine, Serum 0.78 mg/dL (0.55-1.02); EST Glomerular Filtration Rate 85 mL/min (>60); Est Glom Filt Rate - Afr Amer 103 mL/min (>60); Estimated Creatinine Clearance 91.37 ml/min; Glucose 97 mg/dL (74-106); Sodium Level 144 mmol/L (136-145)
[2018-12-10 07:25] VITALS: O2SAT 95
[2018-12-10] MEDS: Calcium Carb/Vitamin D 1 TABLET Tablet PO ×2 (08:45→22:46)
[2018-12-10] MEDS: Ferrous Sulfate 325 MG Tablet PO (08:45)
[2018-12-10] MEDS: Acetaminophen 500 MG Tablet 1000 MG PO ×2 (08:47→18:24)
[2018-12-10 09:00] VITALS: BP 139/61; PULSE 82; RESP 16; TEMP 36.5; O2SAT 97
[2018-12-10] MEDS: Sertraline 50 MG Tablet 25 MG PO (09:13)
[2018-12-10] MEDS: Magnesium Oxide 400 MG Tablet PO ×2 (09:14→22:48)
[2018-12-10] MEDS: Ascorbic Acid 500 MG Tablet 2000 MG PO ×2 (09:14→22:48)
--- NOTE | 2018-12-10 09:23 | NURSING ---
wound photo: left hip
--- NOTE | 2018-12-10 09:24 | NURSING ---
wound photo: right lateral lower leg
[2018-12-10 11:15] LABS: M R Staph aureus DNA By PCR Negative (Negative); Probe Check PASS; Specimen Processing Control PASS; Staph aureus DNA By PCR POSITIVE (Negative)
--- NOTE | 2018-12-10 11:15 | CASEMGMT ---
RN CM Assessment Presentation: Cellulitis L lateral thigh. Failed OP tx of doxycycline 5 doses prior to admission. Hx of Super Morbid Obesity, lymph edema, MRSA Intro role of CM and purpose of RN CM assessment to patient in room. Pt is awake, alert and able to participate in assessment. Demographics, PCP and Pharmacy verified. Pt states her parents are staying with her and her mother has been assisting with dressing changes. -RN CM spoke with [place], wound nurse who states pt's mother will be able to do dressing changes (adaptic and DSD for now) and HHS is not needed. PCP: Dr. Marcela Sargent Specialists: wound nurse Preferred Pharmacy: [facility], pt may change her mind to [facility], but cannot decide right now. Insurance: [facility] Prescription Benefit: yes LNOK: MotherUrmila Living Arrangements: Lives independently at home. Denies care needs. States she does own ADL's independently. Transportation: drives DME: Cpap HHC: none recommended Patient DC goals: Home DC PLAN: Home with mother to assist with dressing changes. Georgina JIMENEZN RN ACM
--- NOTE | 2018-12-10 11:31 | NURSING ---
In to see patient again with Dr Rogers. recieved orders for Eucerin BID for the lower leg itching and dry skin. will wrap bilateral lower legs after patient showers. the left hip dressing with minimal serosanguineous drainage at this time. will change dressing after shower as well. wound PCR positive for staph but neg MRSA.
[2018-12-10 11:35] LABS: Erythrocyte Sedimentation Rate 50 mm/hr (0-20)
[2018-12-10 11:40] LABS: AST(SGOT) 10 U/L (15-37); Alanine Aminotransfer ALT/SGPT 24 U/L (13-56); Albumin, Serum 2.7 g/dL (3.2-5.0); Alkaline Phosphatase 82 U/L (45-117); Bilirubin, Direct 0.07 mg/dL (0.00-0.30); Cholesterol 97 mg/dL (200); Globulin 3.9 g/dL (2.2-4.2); High Density Lipoprotein 37 mg/dL; Magnesium 1.9 mg/dL (1.6-2.6); Protein, Total 6.6 g/dL (6.4-8.2); Triglycerides 103 mg/dL; Very Low Density Lipoprotein 21 mg/dL (5-40)
[2018-12-10 11:56] LABS: Hemoglobin A1c 5.9 % (4.2-6.3)
[2018-12-10 14:00] VITALS: BP 126/72; PULSE 72; RESP 14; TEMP 36.5; O2SAT 96
--- NOTE | 2018-12-10 14:12 | CHAPLAIN ---
Type of Pastoral Visit _x__ Initial Visit ___ Follow-up Visit ___ On-call Visit ___ General Patient Visit ___ Spiritual Assessment ___ Family Conference ___ Bereavement ___ Rapid Response ___ Code Blue ___ Other (describe below) Pastoral Care Referral From _x__ Patient ___ Family ___ Nurse ___ Physician ___ Air Liaison And Special Staff ___ Asphalt Plant Worker ___ Other (describe below) Sacrament/Intervention _x__ Active listening ___ Anointing ___ Holiness ___ Bereavement ___ Communion _x__ Jacqui exploration ___ _x__ Life review _x__ Prayer ___ Reconciliation ___ Sacrament of Sick _x__ Supportive presence ___ Wedding ___ Other (describe below) Pastoral Comments
--- NOTE | 2018-12-10 14:15 | PCM.PROGNOTE ---
Patient Problems: Active and Suspected Problems Cellulitis (Acute) Subjective: Patient seen and examined. Requesting shower. Complains of left hip discomfort secondary to wound. Complains of lower extremity itching. Denies fever, chills. - Physical Exam General: Alert, Oriented x3, Cooperative HEENT: Atraumatic, PERRLA, EOMI, Normocephalic Neck: Supple, No JVD, Negative Carotid Bruits Lungs: Clear to auscultation, Normal air movement Cardiovascular: Regular rate, Regular Rhythm, Normal S1, Normal S2, No murmurs Abdomen: Bowel Sounds Present, Soft, Non Tender, Non-Distended, Obese Extremities: No clubbing, No cyanosis, Capillary Refill Less than 3 Seconds, Edema - Chronic bilateral lower extremity lymphedema Skin: No rashes, No breakdown, - - Left thigh cellulitis with area of induration, no significant drainage. Chronic bilateral lower extremity hyperpigmentation. Musculoskeletal: No Tenderness to Palpation of Joints or Extremities Neurological: Cranial nerves II-XII grossly intact, Neuro grossly intact Psych/Mental Status: Normal Affect, Appropriate Vital Signs Temp Pulse Resp BP Pulse Ox 97.7 F L 82 16 139/61 H 97 12/10/18 09:00 12/10/18 09:00 12/10/18 09:00 12/10/18 09:00 12/10/18 09:00 Oxygen Delivery Method Room Air Weight: 357 lb 2.382 oz Body Mass Index (BMI) 56.0 Intake and Output for Last 24 Hours 12/08/18 12/09/18 12/10/18 23:59 23:59 23:59 Intake Total 3466.17 / 3466.17 Balance 3466.17 / 3466.17 Microbiology Past 72 Hours 12/10/18 08:50 Gram Stain - Final Wound - Hip Laboratory Tests Past 24 Hrs 12/09/18 12/09/18 12/09/18 17:34 17:34 17:34 WBC 7.0 RBC 3.59 L Hgb 10.5 L Hct 32.7 L MCV 91.1 MCH 29.2 MCHC 32.1 RDW Std Deviation 50.2 H RDW Coeff of Julissa 15.0 H Plt Count 165 MPV 10.6 Immature Gran % (Auto) 0.300 Neut % (Auto) 75.6 H Lymph % (Auto) 15.0 L Marinette % (Auto) 7.5 Eos % (Auto) 1.3 Baso % (Auto) 0.3 Absolute Neuts (auto) 5.3 Absolute Lymphs (auto) 1.04 Nucleated RBC % 0 ESR PT 25.6 H INR 2.3 Sodium 142 Potassium 4.1 Chloride 111 H Carbon Dioxide 28.0 Anion Gap 3 L BUN 19 H Creatinine 0.96 Estim Creat Clear Calc 74.24 Est GFR (MDRD) Af Amer 82 Est GFR (MDRD) Non-Af 68 BUN/Creatinine Ratio 19.9 Glucose 117 H Hemoglobin A1c Lactic Acid Calcium 8.6 Phosphorus Magnesium Total Bilirubin Direct Bilirubin AST ALT Alkaline Phosphatase C-React Prot Ext Range Total Protein Albumin Globulin Triglycerides Cholesterol LDL Cholesterol VLDL Cholesterol HDL Cholesterol S.aureus Protein A PCR MRSA (PCR) 12/09/18 12/09/18 12/10/18 17:35 22:00 05:04 WBC 5.1 RBC 3.44 L Hgb 9.7 L Hct 31.3 L MCV 91.0 MCH 28.2 MCHC 31.0 L RDW Std Deviation 50.5 H RDW Coeff of Julissa 15.3 H Plt Count 162 MPV 10.9 Immature Gran % (Auto) 0.400 Neut % (Auto) 64.6 Lymph % (Auto) 23.8 Marinette % (Auto) 8.6 Eos % (Auto) 1.8 Baso % (Auto) 0.8 Absolute Neuts (auto) 3.3 Absolute Lymphs (auto) 1.22 Nucleated RBC % 0 ESR PT INR Sodium Potassium Chloride Carbon Dioxide Anion Gap BUN Creatinine Estim Creat Clear Calc Est GFR (MDRD) Af Amer Est GFR (MDRD) Non-Af BUN/Creatinine Ratio Glucose Hemoglobin A1c Lactic Acid 2.0 1.3 Calcium Phosphorus Magnesium Total Bilirubin Direct Bilirubin AST ALT Alkaline Phosphatase C-React Prot Ext Range Total Protein Albumin Globulin Triglycerides Cholesterol LDL Cholesterol VLDL Cholesterol HDL Cholesterol S.aureus Protein A PCR MRSA (PCR) 12/10/18 12/10/18 12/10/18 05:04 05:04 05:04 WBC RBC Hgb Hct MCV MCH MCHC RDW Std Deviation RDW Coeff of Julissa Plt Count MPV Immature Gran % (Auto) Neut % (Auto) Lymph % (Auto) Marinette % (Auto) Eos % (Auto) Baso % (Auto) Absolute Neuts (auto) Absolute Lymphs (auto) Nucleated RBC % ESR 50 H PT INR Sodium 144 Potassium 4.0 Chloride 112 H Carbon Dioxide 24.0 Anion Gap 8 BUN 18 Creatinine 0.78 Estim Creat Clear Calc 91.37 Est GFR (MDRD) Af Amer 103 Est GFR (MDRD) Non-Af 85 BUN/Creatinine Ratio 22.9 H Glucose 97 Hemoglobin A1c Lactic Acid Calcium 8.1 L Phosphorus 4.0 Magnesium 1.9 Total Bilirubin 0.20 Direct Bilirubin 0.07 AST 10 L ALT 24 Alkaline Phosphatase 82 C-React Prot Ext Range 31.80 H Total Protein 6.6 Albumin 2.7 L Globulin 3.9 Triglycerides 103 Cholesterol 97 LDL Cholesterol 39 VLDL Cholesterol 21 HDL Cholesterol 37 L S.aureus Protein A PCR MRSA (PCR) 12/10/18 12/10/18 12/10/18 05:04 05:04 08:50 WBC RBC Hgb Hct MCV MCH MCHC RDW Std Deviation RDW Coeff of Julissa Plt Count MPV Immature Gran % (Auto) Neut % (Auto) Lymph % (Auto) Marinette % (Auto) Eos % (Auto) Baso % (Auto) Absolute Neuts (auto) Absolute Lymphs (auto) Nucleated RBC % ESR PT INR Sodium Potassium Chloride Carbon Dioxide Anion Gap BUN Creatinine Estim Creat Clear Calc Est GFR (MDRD) Af Amer Est GFR (MDRD) Non-Af BUN/Creatinine Ratio Glucose Hemoglobin A1c 5.9 Lactic Acid Calcium Phosphorus Cancelled Magnesium Total Bilirubin Direct Bilirubin AST ALT Alkaline Phosphatase C-React Prot Ext Range Total Protein Albumin Globulin Triglycerides Cancelled Cholesterol Cancelled LDL Cholesterol Cancelled VLDL Cholesterol Cancelled HDL Cholesterol Cancelled S.aureus Protein A PCR POSITIVE H MRSA (PCR) Negative Medical Necessity - Tobacco Use Smoking Status: Never smoker Tobacco Use: Non-smoker Assessment/Plan All Active Problems Maceration of skin (Resolved) Cellulitis (Acute) Cellulitis of right lower extremity (Resolved) Open wound of right lower extremity (Acute) History of cellulitis (Acute) Ulcer of right lower extremity with fat layer exposed (Resolved) Ulcer of left lower extremity, limited to breakdown of skin (Resolved) Deep vein thrombosis of right lower limb (Ruled-out) Hematoma of right lower extremity (Resolved) Pulmonary embolism (Resolved) Ulcer of left ankle (Resolved) 1. Left proximal thigh cellulitis-continue IV cefazolin and IV vancomycin. Patient follows with wound center for chronic lower extremity wounds. Left thigh with indurated area. No significant drainage. Surrounding erythema improving. Wound culture and blood culture pending. Wound RN consult, continue dressing changes per wound RN recommendations. Patient will need continued outpatient follow-up with wound center. Anticipate discharge home tomorrow on oral regimen. 2. 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 3. Venous insufficiency/peripheral arterial disease/chronic lymphedema bilateral lower extremities-Aashish wraps. 4. Morbid obesity-encourage diet and lifestyle modifications. 5. Depression-continue home sertraline regimen. 6. IBS-continue home Imodium as needed regimen. 7. Vitamin D deficiency-continue vitamin D supplementation. 8. Chronic normocytic anemia-stable. DVT prophylaxis-Coumadin This patient was seen by SVEN Hamilton under the supervision of Dr. Rogers.
[2018-12-10 18:32] LABS: Vancomycin, Trough Level 20.3 ug/mL (5.0-15.0)
--- NOTE | 2018-12-10 18:42 | NURSING ---
per pt, her mom put the eucerin cream on her legs per pt request. stated it felt good at first but is now itching
--- NOTE | 2018-12-10 18:56 | NURSING ---
pt applied adaptic and abd drsg to lt hip
--- NOTE | 2018-12-10 19:58 | PCM.RX.CS ---
Consult Pharmacy has been consulted to manage selected antiobiotic: Vancomycin Type of Consult: Follow-up Suspected Infection: Skin/Soft tissue Prior Doses of Antibiotics Received/Current Regimen: Currently on 1500mg IV q8h Labs: Sodium 144 mmol/L (136-145) 12/10/18 05:04 Potassium 4.0 mmol/L (3.5-5.1) 12/10/18 05:04 Chloride 112 mmol/L (98-107) H 12/10/18 05:04 Carbon Dioxide 24.0 mmol/L (21.0-32.0) 12/10/18 05:04 8 (5-15) 12/10/18 05:04 BUN 18 mg/dL (7-18) 12/10/18 05:04 0.78 mg/dL (0.55-1.02) 12/10/18 05:04 Est GFR (MDRD) Af Amer 103 mL/min (>60) 12/10/18 05:04 Est GFR (MDRD) Non-Af 85 mL/min (>60) 12/10/18 05:04 22.9 RATIO (10-20) H 12/10/18 05:04 Glucose 97 mg/dL (74-106) 12/10/18 05:04 Vancomycin Trough 20.3 ug/mL (5.0-15.0) H 12/10/18 17:30 Microbiology: Microbiology 12/10/18 08:50 Wound - Hip Gram Stain - Final Weight used for dosin kg Estimated Creatinine Clearance: 151 ml/min Goal Trough: 15-20 mcg/mL Pharmacy Plan for Drug Dosing: Trough drawn before this evening's dose was 20.3 mg/L (drawn about 6.5 hours after the previous dose). While the trough is slightly higher than the goal range of 15-20, the previous dose was given late making the value higher than it would have been. Plan to continue the same dosing but another trough will be ordered to be drawn in 48 hours since it was on the higher end of the goal range. The CrCl of 151 ml/min was calculated using an adjusted body weight of 101.8kg. Pharmacy Service will continue to monitor and adjust dosing as required. Follow-Up Labs: Trough Vancomycin Labs to be done on [date and time ordered]: 12/12/18 17:30
[2018-12-10 20:04] VITALS: BP 129/64; PULSE 79; RESP 18; TEMP 36.9; O2SAT 96
[2018-12-10 20:42] LABS: Platelet Count 136 K/mm3 (150-450); RET-HE 31.7 pg (30-35); Reticulocyte Count 1.92 % (0.5-1.5)
[2018-12-10 21:30] LABS: Ferritin 47 ng/mL (8-252); Iron 58 ug/dL (50-170); Iron Binding Capacity,Total 300 ug/dL (250-450); PERCENT IRON SATURATION 19.3 % (15.0-55.0)
[2018-12-10] MEDS: Warfarin 0.5 MG Tablet PO (22:46)
[2018-12-10] MEDS: DiphenhydrAMINE 25 MG Capsule PO (22:49)
[2018-12-10] MEDS: MELATONIN 3 MG TABLET PO (22:51)
[2018-12-11 02:04] VITALS: BP 122/71; PULSE 81; RESP 18; TEMP 36.6; O2SAT 96
[2018-12-11 06:18] LABS: Hematocrit 32.1 % (37-47); Hemoglobin 10.2 g/dL (12.0-15.0); Mean Corp Hgb Conc 31.8 g/dL (32-36); Mean Corpuscular Hgb 29.5 pg (27.0-32.0); Mean Corpuscular Volume 92.8 fL (81-99); Mean Platelet Vol. 10.8 fl (6.2-12.0); Platelet Count 159 K/mm3 (150-450); RBC Distribution Width CV 14.9 % (11.6-14.6); Red Blood Count 3.46 M/mm3 (4.2-5.4); White Blood Count 5.3 K/mm3 (4.4-11.0)
[2018-12-11] MEDS: Cefazolin 2 GM in 0.9% Normal Saline 100 ML IV (06:29)
[2018-12-11] MEDS: Acetaminophen 500 MG Tablet 1000 MG PO (06:32)
[2018-12-11 07:47] VITALS: O2SAT 98
[2018-12-11] MEDS: 0.9% Normal Saline 1,000 ML 150 ML IV (08:15)
[2018-12-11] MEDS: Calcium Carb/Vitamin D 1 TABLET Tablet PO (08:19)
[2018-12-11] MEDS: Ferrous Sulfate 325 MG Tablet PO (08:19)
[2018-12-11 08:24] VITALS: BP 144/96; PULSE 82; RESP 18; TEMP 36.6; O2SAT 95
--- NOTE | 2018-12-11 10:26 | NURSING ---
Bilateral lower legs wrapped with HELEN wraps. encouraged patient to keep legs elevated as much as possible. did apply soft cotton spandage under the HELEN wraps per patient request. pt states legs are still itching, but admits is slightly improved. Feel the chronic edema and stretching of this skin is one of the causes of the itching. pt re-educated on this again. pt up in recliner with legs elevated.
--- NOTE | 2018-12-11 10:39 | NURSING ---
Wound Center appt made for patient December 13 at 10:30am. Pt aware.
[2018-12-11] MEDS: Venlafaxine XR 75 MG Capsule PO (11:14)
[2018-12-11] MEDS: Magnesium Oxide 400 MG Tablet PO (11:16)
[2018-12-11] MEDS: Ascorbic Acid 500 MG Tablet 2000 MG PO (11:17)
--- NOTE | 2018-12-11 11:20 | PCM.DC ---
- Discharge Diagnoses Current Active Problems: Current Active and Chronic Problems Cellulitis (Acute) - proximal left lateral thigh hemoccult + stool You will use the following diet at home:: Calorie/Carbohydrate Controlled (specify 1200, 1400, etc) - 1600 calorie low fat diet Your food should be the consistency of: Regular Your liquids should be the consistency of: Regular/Thin Discharge Activity: Return to Normal Activity Call your doctor if your incision/area has: Continuous Slow Oozing, Increased Pain/ Swelling, Increased Redness, Foul Smelling Discharge Call your doctor if you observe: Fever of 101 or Higher, Shortness of breath, Dizziness, Fainting spells, Chest pain, - - Call your PCP if severe diarrhea ( > 5 stools a day), painful sores in the mouth, painful swallowing, rash or itching. Taking a probiotic such as Lactobacillus or Kefir can help with loose stools while taking antibiotics. Instructions: Venlafaxine Hydrochloride Oral capsule, extended-release, Treating Panic Disorder with Medication, Your Body's Response to Anxiety, Treating Anxiety Disorders with Therapy Additional Instructions: 1. I have added Metabolic Syndrome to your diagnoses. I hope that this will qualify you for the [facility] with your insurance company. 2. You have been taking an antibiotic in the hospital which is in a class of drugs called Cephalosporins and it is a first generation Cephalosporin. I am discharging you on Cefadroxil which is also a first generation Cephalosporin. Keflex also falls into the category. Nausea and vomiting are not allergies. An allergy is a rash, hives, low BP, wheezing. Take the Cefadroxil with food to help prevent nausea and vomiting. 3. You may want to check out Overeater's Anonymous......it is like AA but for food addicts. It is a good way to get support. 4. Find what makes you relax and forgot about worry......take at least 30 minutes of every day and do something that takes your mind away from problems and stress. 5. You will need to have the PT/INR rechecked in 1 week......Your PCP can order this for you. Follow up with your PCP in 5-7 days. Pending Tests on Discharge: final wound culture Allergies/Adverse Reactions: Allergies amoxicillin Allergy (Verified 12/09/18 23:09) Nausea/Vom/Diarrhea cephalexin Allergy (Verified 12/09/18 23:09) Nausea/Vom/Diarrhea naproxen Allergy (Verified 12/09/18 23:09) Nausea/Vom/Diarrhea sulfamethoxazole [From Bactrim] Allergy (Verified 12/09/18 23:09) Nausea/Vom/Diarrhea trimethoprim [From Bactrim] Allergy (Verified 12/09/18 23:09) Nausea/Vom/Diarrhea Medications to take at Discharge Furosemide 20 mg PO PRN PRN 02/16/16 Calcium Carbonate/Vitamin D3 [Calcium 600-Vit D3 500 Softgel] 1 tab PO BID 12/13/17 Ferrous Sulfate 325 mg PO DAILY 12/13/17 Loperamide [Imodium] 2 - 4 mg PO Q6H PRN PRN 12/13/17 Melatonin 3 mg PO QHS 12/13/17 Warfarin [Coumadin] 5 mg PO SUMOWETHFR 12/13/17 Zinc Sulfate (50mg elemental) [Zinc Sulfate] 220 mg PO QHS 12/13/17 Acetaminophen [Tylenol] 1,000 mg PO Q6H PRN PRN 12/21/17 Ascorbic Acid [Vitamin C] 2,000 mg PO BID 12/21/17 Ergocalciferol [Vitamin D] 50,000 unit PO Q7D 12/21/17 Magnesium Oxide [Magnesium] 400 mg PO BID 12/21/17 Warfarin Sodium 4.5 mg PO TUSA 12/21/17 Cefadroxil 1 gm PO BID #14 tab 12/11/18 Venlafaxine XR [Effexor Xr] 75 mg PO DAILY #46 cap 12/11/18 The following prescriptions were given: Cefadroxil 1 gm PO BID #14 tab Transmission Status: Pending to [id number] Venlafaxine XR [Effexor Xr] 75 mg PO DAILY #46 cap Transmission Status: Pending to [facility] Orders to be completed after discharge: Physical Therapy Evaluation Location: None Selected Primary Care Physician: Marcela Sargent MD [Primary Care Provider] - Please follow up with your Primary Care Physician in: 5-7 days Test Results: Test results from this visit will be discussed in further detail at your follow-up appointment, if applicable. Please Follow Up With: Wound Healing Center When: Sunday Proposed Discharge Date: 12/11/18
--- NOTE | 2018-12-11 12:46 | DS.PCM_ITS ---
Discharge Date and Diagnosis Date of Admission: 12/09/18 Date of Discharge: 12/11/18 - Primary Discharge Diagnosis Active and Suspected Problems 1. Left proximal thigh staph aureus cellulitis with nonhealing wound 2. History of DVT/PE 3. Venous insufficiency/peripheral arterial disease/chronic lymphedema bilateral lower extremities 4. Super obesity with metabolic syndrome 5. Depression 6. IBS 7. Vitamin D deficiency 8. Chronic normocytic anemia - Secondary Discharge Diagnosis Chronic Problems Normochromic normocytic anemia (Chronic) JOSEPH (obstructive sleep apnea) (Chronic) Glucose intolerance (Chronic) Low HDL (under 40) (Chronic) Metabolic syndrome (Chronic) Physical deconditioning (Chronic) Walking difficulty due to ankle and foot (Chronic) Obesity (Chronic) Ulcer of left lower extremity, limited to breakdown of skin (Chronic) Ulcer of right lower extremity, limited to breakdown of skin (Chronic) Corns and callosities (Chronic) Peripheral arterial disease (Chronic) Chronic ulcer of left foot with fat layer exposed (Chronic) Bilateral lower extremity edema (Chronic) Left foot pain (Chronic) Chronic ulcer of left foot limited to breakdown of skin (Chronic) Chronic ulcer of left foot with fat layer exposed (Chronic) Ulcer of left lower extremity with fat layer exposed (Chronic) Delayed wound healing (Chronic) Lymphedema (Chronic) Other acquired deformities of left foot (Chronic) Walking difficulty due to ankle and foot (Chronic) Left ankle pain (Chronic) Compliance poor (Chronic) 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) Varicose veins of right lower extremity with both ulcer of calf and inflammation (Chronic) 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 Minimal subcutaneous soft tissue swelling overlying the left hip. No evidence of abscess. 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 1. Left proximal thigh staph aureus cellulitis with nonhealing wound-patient received IV cefazolin and IV vancomycin. Patient follows with wound center for chronic lower extremity wounds. Blood cultures negative. Wound culture shows staph aureus. MRSA PCR negative. Discharge on Duricef 1 g twice daily. Follow-up with wound center on Sunday as scheduled. Follow-up with primary care physician in 1 week. 2. 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 3. Venous insufficiency/peripheral arterial disease/chronic lymphedema bilateral lower extremities-Aashish wraps. Follow-up with wound center as noted above. 4. Morbid obesity with metabolic syndrome-encourage diet and lifestyle modifications. Failed treatment with Wellbutrin. DC Wellbutrin and begin Effexor. Follow-up with dietitian/[facility] at discharge. Calorie count, 1600 controlled diet. Outpatient PT. 5. Depression-placed on Effexor. 6. IBS-continue home Imodium as needed regimen. 7. Vitamin D deficiency-continue vitamin D supplementation. 8. Chronic normocytic anemia-stable. Stool positive for occult blood. However hemoglobin remains stable. General: Alert, Oriented x3, Cooperative HEENT: Atraumatic, PERRLA, EOMI, Normocephalic Neck: Supple, No JVD, Negative Carotid Bruits Lungs: Clear to auscultation, Normal air movement Cardiovascular: Regular rate, Regular Rhythm, Normal S1, Normal S2, No murmurs Abdomen: Bowel Sounds Present, Soft, Non Tender, Non-Distended, Obese Extremities: No clubbing, No cyanosis, Capillary Refill Less than 3 Seconds, Edema - Chronic bilateral lower extremity lymphedema Skin: No rashes, No breakdown, - - Left thigh cellulitis with area of induration, no significant drainage. Chronic bilateral lower extremity hyperpigmentation. Musculoskeletal: No Tenderness to Palpation of Joints or Extremities Neurological: Cranial nerves II-XII grossly intact, Neuro grossly intact Psych/Mental Status: Normal Affect, Appropriate Patient seen and examined prior to discharge. Physical assessment as noted above. Patient is stable for discharge with follow up recommendations as noted above. This patient was seen by SVEN Hamilton under the supervision of Dr. Rogers. - Physical Exam Vital Signs Temp Pulse Resp BP Pulse Ox 97.9 F 82 18 144/96 H 95 12/11/18 08:24 12/11/18 08:24 12/11/18 08:24 12/11/18 08:24 12/11/18 08:24 Oxygen Delivery Method Room Air Weight: 357 lb 2.382 oz Body Mass Index (BMI) 56.0 Intake and Output for Last 24 Hours 12/09/18 12/10/18 12/11/18 23:59 23:59 23:59 Intake Total 5694.50 / 6394.50 2815.0 / 2815.0 Output Total 1400 / 2400 1901 / 1901 Balance 4294.50 / 3994.50 914.0 / 914.0 Microbiology Past 72 Hours 12/10/18 08:50 Gram Stain - Final Wound - Hip Wound Culture - Preliminary Staphylococcus species 12/10/18 22:42 Stool Occult Blood (NITO) - Final Stool Occult Blood Positive Laboratory Tests Past 24 Hrs 12/10/18 12/10/18 12/10/18 05:04 05:04 17:30 WBC RBC Hgb Hct MCV MCH MCHC RDW Std Deviation RDW Coeff of Julissa Plt Count MPV Retic Count 1.92 H Immature Retic Fraction 28.50 H Retic Hgb Equivalent 31.7 Iron 58 TIBC 300 Iron Saturation 19.3 Ferritin 47 Vancomycin Trough 20.3 H 12/11/18 05:58 WBC 5.3 RBC 3.46 L Hgb 10.2 L Hct 32.1 L MCV 92.8 MCH 29.5 MCHC 31.8 L RDW Std Deviation 51.0 H RDW Coeff of Julissa 14.9 H Plt Count 159 MPV 10.8 Retic Count Immature Retic Fraction Retic Hgb Equivalent Iron TIBC Iron Saturation Ferritin Vancomycin Trough Discharge Diet: 1600 Calorie Control Diet Discharge Activity: Return to Normal Activity Call your doctor if your incision/area has: Continuous Slow Oozing, Increased Pain/ Swelling, Increased Redness, Foul Smelling Discharge Call your doctor if you observe: Fever of 101 or Higher, Shortness of breath, Dizziness, Fainting spells, Chest pain, - - Call your PCP if severe diarrhea ( > 5 stools a day), painful sores in the mouth, painful swallowing, rash or itching. Taking a probiotic such as Lactobacillus or Kefir can help with loose stools while taking antibiotics. Home Medications: Medications to take at Discharge Furosemide 20 mg PO PRN PRN 02/16/16 Calcium Carbonate/Vitamin D3 [Calcium 600-Vit D3 500 Softgel] 1 tab PO BID 12/13/17 Ferrous Sulfate 325 mg PO DAILY 12/13/17 Loperamide [Imodium] 2 - 4 mg PO Q6H PRN PRN 12/13/17 Melatonin 3 mg PO QHS 12/13/17 Warfarin [Coumadin] 5 mg PO SUMOWETHFR 12/13/17 Zinc Sulfate (50mg elemental) [Zinc Sulfate] 220 mg PO QHS 12/13/17 Acetaminophen [Tylenol] 1,000 mg PO Q6H PRN PRN 12/21/17 Ascorbic Acid [Vitamin C] 2,000 mg PO BID 12/21/17 Ergocalciferol [Vitamin D] 50,000 unit PO Q7D 12/21/17 Magnesium Oxide [Magnesium] 400 mg PO BID 12/21/17 Warfarin Sodium 4.5 mg PO TUSA 12/21/17 Cefadroxil 1 gm PO BID #14 tab 12/11/18 Cefadroxil 1 gm PO BID #14 tab 12/11/18 Venlafaxine XR [Effexor Xr] 75 mg PO DAILY #46 cap 12/11/18 Following Prescrptions Were Given to Patient: Cefadroxil 1 gm PO BID #14 tab Transmission Status: Received by [id number] Cefadroxil 1 gm PO BID #14 tab Transmission Status: Received by [facility] Venlafaxine XR [Effexor Xr] 75 mg PO DAILY #46 cap Transmission Status: Received by [facility] Other Amb Orders: Physical Therapy Evaluation Location: None Selected Primary Care Physician: Marcela Sargent MD [Primary Care Provider] - Please follow up with your Primary Care Physician in: 5-7 days Please Follow Up With: Wound Healing Center When: Sunday Patient Instructions: Venlafaxine Hydrochloride Oral capsule, extended-release, Your Body's Response to Anxiety, Treating Anxiety Disorders with Therapy, Treating Panic Disorder with Medication Disposition: Home Minutes spent on discharge:: 35 Patient Condition:: Stable Medical Necessity - Tobacco Use Smoking Status: Never smoker Tobacco Use: Non-smoker Meaningful Use Info Meaningful Use Diagnoses (Choose all that apply): None applicable
[2018-12-11 13:17] VITALS: BP 157/81; PULSE 85; RESP 18; TEMP 36.4; O2SAT 97
== END 2018-12-11 13:17 | disposition home or self-care (01) | DRG 603 ==
LOC: ED 21:44 → MS3 22:49
PROVIDERS: Nurse Practitioner Family; Admitting Provider Hospitalist; Emergency Provider Emergency Medicine; Visit Provider Internal Medicine
DX: L03.116 Cellulitis of left lower limb (principal); Z68.43 Body mass index [BMI] 50.0-59.9, adult; E55.9 Vitamin D deficiency, unspecified; E66.01 Morbid (severe) obesity due to excess calories; I89.0 Lymphedema, not elsewhere classified; B95.61 Methicillin susceptible Staphylococcus aureus infection as the cause of diseases classified elsewhere; I87.2 Venous insufficiency (chronic) (peripheral); E88.81 Metabolic syndrome and other insulin resistance; K58.9 Irritable bowel syndrome, unspecified; F32.9 Major depressive disorder, single episode, unspecified; D64.9 Anemia, unspecified; R19.5 Other fecal abnormalities; I73.9 Peripheral vascular disease, unspecified; Z79.01 Long term (current) use of anticoagulants; Z86.718 Personal history of other venous thrombosis and embolism; Z86.711 Personal history of pulmonary embolism
CPT/HCPCS: 36415; 73700; 80048; 80061; 80076; 80202; 82274; 82728; 83036; 83540; 83550; 83605; 83735; 84100; 85025; 85027; 85045; 85610; 85652; 86140; 87040; 87070; 87077; 87186; 87205; 87640; 97802; 99285; J7030; J7040; A4216

== ENCOUNTER 2018-12-20 11:30 | Outpatient (RCR) | payer MEDICARE, MEDICAID, SELFPAY ==
[2018-11-21 00:48] VITALS: BP 163/95; PULSE 88; RESP 18; TEMP 36.7
[2018-11-27 15:05] VITALS: BP 164/82; PULSE 90; RESP 18; TEMP 36.2; BMI 58.1
--- NOTE | 2018-11-27 15:36 | PCM.WC.PN ---
(1) Ulcer of left lower extremity, limited to breakdown of skin Status: Chronic Current Visit: Yes Code(s): L97.921 - Non-pressure chronic ulcer of unspecified part of left lower leg limited to breakdown of skin (2) Ulcer of right lower extremity, limited to breakdown of skin Status: Acute Current Visit: Yes Code(s): L97.911 - Non-pressure chronic ulcer of unspecified part of right lower leg limited to breakdown of skin (3) Maceration of skin Status: Resolved Current Visit: Yes Code(s): L98.8 - Other specified disorders of the skin and subcutaneous tissue Comment: left lower leg (4) Physical deconditioning Status: Chronic Current Visit: Yes Code(s): R53.81 - Other malaise (5) Walking difficulty due to ankle and foot Status: Chronic Current Visit: Yes Code(s): R26.2 - Difficulty in walking, not elsewhere classified (6) Obesity Status: Chronic Current Visit: Yes Code(s): E66.9 - Obesity, unspecified (7) Lymphedema Status: Chronic Current Visit: Yes Code(s): I89.0 - Lymphedema, not elsewhere classified (8) Compliance poor Status: Chronic Current Visit: Yes Code(s): Z91.19 - Patient's noncompliance with other medical treatment and regimen (9) Venous insufficiency of both lower extremities Status: Chronic Current Visit: Yes Code(s): I87.2 - Venous insufficiency (chronic) (peripheral) Type of Wound Date of Service: 11/28/18 Chief Complaint: Left lower leg weeping. New weeping area right leg History of Wound: This 43-year-old female returns to clinic for left foot ulcer that remains healed. However the weeping within the past 2 weeks has returned and she is concerned that this has reopened. She also now has several spots of weeping areas to the right front leg. She denies fever, chill, nausea, vomiting. She was fitted with an updated left lower extremity ankle-foot orthotic. She is still not able to apply her compression garments on her own and denies her family or friends can provide help. Her insurance did not approve her nutrition referral. She is excited because she has appointment scheduled with physical therapy to help her with mobility, deconditioning, and weight loss. The goal is for her to be more self-sufficient throughout the day including the ability to apply her compression garments. Progress of Wound: Weeping skin discontinuities new right and stable left - Physical Exam Vital Signs Temp Pulse Resp BP 97.1 F L 90 18 164/82 H 11/27/18 15:05 11/27/18 15:05 11/27/18 15:05 11/27/18 15:05 General: Alert, Oriented x3, Cooperative, No apparent distress Extremities: No cyanosis, Capillary Refill Less than 3 Seconds, No Calf Tenderness - Negative Elena and Briseno sign bilateral. Compartments are soft to palpate bilateral, Diminished Peripheral Pulses, Edema - Bilateral lower extremity; right more than left, - - Rectus bilateral lower extremities Skin: Ulcer/ Wound - No purulence, erythema, streaking, odor, infection, necrosis or deep tissue exposure bilateral. There is decrease of hemorrhagic tissue noted to the left posterior leg and there is still skin discontinuity and weeping serous drainage noted. There is also some new areas of some hemorrhagic tissue and serous weeping and a cluster speckled manner to the anterior right leg. There is no bogginess or fluctuance on palpation or infection signs. All of the skin is atrophic and hairless. 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 Wound Measurements and Assessment WC - Nurse 1 - General Ulcer Measurement Start: 11/27/18 15:05 Freq: Status: Active Protocol: Activity Type Activity Date Activity User E-Sign Co-Sign Detail Recorded Client Recorded Date Recorded By Document 11/27/18 15:05 RB [id number] 11/27/18 15:14 RB 11/27/18 15:05 Wound Center Nurse 1 [Ulcer Assessment] #5 L Heel -Combined with other wound No -Current Size (cm) - Length 0.1 -Current Size (cm) - Width 0.1 -Current Size (cm) - Depth 0.1 -Total Square Cm 0.01 -Tunneling No -Undermining/Tunneling No -Circular Undermining No -Exudate Amt Small -Exudate Type Serosanguineous -Wound Margin Flat & Intact -Granulation Amt Large (67-100%) -Granulation Quality [place] -Slough/Fibrin Yes -Necrosis Amt Small (1-33%) -Necrotic Tissue Type Adherent Slough -Structure Exposed N/A -Texture (Meg-wound Skin Appearance) Assessed,Callus -Moisture (Meg-wound Skin Appearance Maceration ) -Color (Meg-wound Skin Appearance) Assessed -Temperature (Meg-wound Skin No Abnormality Appearance) (Pt Warm) -Tenderness on Palpation (Meg-wound No Skin Appearance) -Ulcer Cleansing Rinsed/ Irrigated with Saline -Foul Odor after Cleansing No -Anesthetic Used 4% Lidocaine Solution [Edema Assessment] -Lower Limb Edema Present Yes -Right Calf (cm) 60.5 -Right Ankle (cm) 32.5 -Left Calf (cm) 50.5 -Left Ankle (cm) 30 Musculoskeletal: No Tenderness to Palpation of Joints or Extremities, Muscle Wasting Neurological: - - Lacking normal-appearing sensation light touch Psych/Mental Status: Normal Affect, Appropriate Debridement Note No debridement was completed today Assessment/Plan Active Problems Physical deconditioning (Chronic) Walking difficulty due to ankle and foot (Chronic) Obesity (Chronic) Ulcer of left lower extremity, limited to breakdown of skin (Chronic) Ulcer of right lower extremity, limited to breakdown of skin (Acute) Lymphedema (Chronic) Compliance poor (Chronic) Venous insufficiency of both lower extremities (Chronic) Assessment: Healed right leg ulcers returned with skin layer exposed. Left lower leg ulcers returned with skin layer exposed. Lymphedema. Morbid obesity. No infection today. Malnutrition suspected. Leg contracture left. Walking difficulty. Left ankle and foot pain. Posterior tibialis tendon dysfunction left. Debilitation Plan: Ms. Carter presents for follow-up of recurrent bilateral lower extremity weeping. She continues with her ankle-foot orthotic and is doing well with this. I am concerned she is unable to don the compression garments after training was reviewed on several occasions.I referred her to the woven [employer] for weight loss which I suspect will help her mobility and reduce some of her extremity edema. It is known her insurance does not cover this and I still recommend she improve her nutrition at home. Some basic guidelines are provided. I also referred her physical therapy for conditioning, mobility, gait training, compression garment training and weight loss. She is amendable to attend [facility] and is scheduled to start tomorrow. To follow-up with the wound healing center in 1 - 2 weeks, sooner if she is any questions or concerns. She understands the lifestyle changes needed to address the etiology of her chronic recurrent ulcerations.
[2018-12-13 10:42] VITALS: BP 147/95; PULSE 90; RESP 22; TEMP 36.2; BMI 58.1
--- NOTE | 2018-12-13 11:53 | PCM.WC.HP ---
(1) Cellulitis Status: Acute Current Visit: Yes Code(s): L03.90 - Cellulitis, unspecified (2) Open wound of right lower extremity Status: Acute Current Visit: Yes Code(s): S81.801A - Unspecified open wound, right lower leg, initial encounter (3) Bilateral lower extremity edema Status: Chronic Current Visit: Yes Code(s): R60.0 - Localized edema (4) Chronic ulcer of left foot limited to breakdown of skin Status: Chronic Current Visit: No Code(s): L97.521 - Non-pressure chronic ulcer of other part of left foot limited to breakdown of skin (5) Current use of group home anticoagulation Status: Chronic Current Visit: Yes Code(s): Z79.01 - long-term (current) use of anticoagulants (6) Delayed wound healing Status: Chronic Current Visit: Yes Code(s): T14.8XXD - Other injury of unspecified body region, subsequent encounter (7) Lymphedema Status: Chronic Current Visit: Yes Code(s): I89.0 - Lymphedema, not elsewhere classified (8) Obesity Status: Chronic Current Visit: Yes Qualifiers: Body mass index: BMI 45.0-49.9 Code(s): E66.9 - Obesity, unspecified (9) Physical deconditioning Status: Chronic Current Visit: Yes Code(s): R53.81 - Other malaise (10) Venous insufficiency of both lower extremities Status: Chronic Current Visit: Yes Code(s): I87.2 - Venous insufficiency (chronic) (peripheral) History of Present Illness Date of Service: 12/13/18 Chief Complaint: Follow-up hospitalization for cellulitis of the left hip History of Wound: This is a 43-year-old grossly obese white female that came to me from the emergency room discharge for a cellulitis that she developed on her left hip. She has 2 round well-demarcated open wounds questionable origin that developed severe cellulitis and was hospitalized for 3 days. She received vancomycin in the emergency room and ceftezole and and was discharged on Cefobid 1 g twice daily for 14 days. The cellulitis around the area is much improved skin is supple denies pain but still has 2 open wounds with old blood vessels and slough that need to be debrided. Depth is 0.2 and the area is 2 sizes of a quarter. She also has been treated in the past recently for her left heel that is almost healed it is very superficial opening in her right senior again is very superficial and is almost healed. Patient has history of malnutrition her last prealbumin was 16.9 we will repeat it today and she appears to be anemic at 10.6. From the hospital her hemoglobin A1c was normal at 5.9 and her liver functions and kidney functions appear to be normal. We discussed at length of her cutting out pop and trying to increase her protein intake and gave her many suggestions suggested she go to the library and filler picker books on low-carb diet and carb diets. Patient seemed interested agreed with treatment plan. We will continue the Aquacel extra to her lower extremities as was ordered by other physicians and we will use Santyl to the left hip to debride the heart and slough. Patient to follow-up in 1 week Past Medical History Past Medical History: Chronic Problems Normochromic normocytic anemia (Chronic) JOSEPH (obstructive sleep apnea) (Chronic) Glucose intolerance (Chronic) Low HDL (under 40) (Chronic) Metabolic syndrome (Chronic) Physical deconditioning (Chronic) Walking difficulty due to ankle and foot (Chronic) Obesity (Chronic) Ulcer of left lower extremity, limited to breakdown of skin (Chronic) Ulcer of right lower extremity, limited to breakdown of skin (Chronic) Corns and callosities (Chronic) Peripheral arterial disease (Chronic) Chronic ulcer of left foot with fat layer exposed (Chronic) Bilateral lower extremity edema (Chronic) Left foot pain (Chronic) Chronic ulcer of left foot limited to breakdown of skin (Chronic) Chronic ulcer of left foot with fat layer exposed (Chronic) Ulcer of left lower extremity with fat layer exposed (Chronic) Delayed wound healing (Chronic) Lymphedema (Chronic) Other acquired deformities of left foot (Chronic) Walking difficulty due to ankle and foot (Chronic) Left ankle pain (Chronic) Compliance poor (Chronic) 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) Varicose veins of right lower extremity with both ulcer of calf and inflammation (Chronic) Current use of ferry terminal agent anticoagulation (Chronic) Venous insufficiency of both lower extremities (Chronic) Chronic pain of right lower extremity (Chronic) Pain of left lower extremity (Chronic) History of pulmonary embolism (Chronic) Post-phlebitic syndrome (Chronic) Morbid obesity (Chronic) Irritable bowel syndrome (IBS) (Chronic) Arthritis (Chronic) 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 She is also undergone several surgeries for anal fistula. Allergies/Adverse Reactions: Allergies amoxicillin Allergy (Verified 12/09/18 23:09) Nausea/Vom/Diarrhea cephalexin Allergy (Verified 12/09/18 23:09) Nausea/Vom/Diarrhea naproxen Allergy (Verified 12/09/18 23:09) Nausea/Vom/Diarrhea sulfamethoxazole [From Bactrim] Allergy (Verified 12/09/18 23:09) Nausea/Vom/Diarrhea trimethoprim [From Bactrim] Allergy (Verified 12/09/18 23:09) Nausea/Vom/Diarrhea Home Medications: Ambulatory Orders Medication Instructions Recorded Furosemide 20 mg PO PRN PRN 16 Calcium Carbonate/Vitamin D3 1 tab PO BID 12/13/17 [Calcium 600-Vit D3 500 Softgel] Ferrous Sulfate 325 mg PO DAILY 12/13/17 Loperamide [Imodium] 2 - 4 mg PO Q6H PRN PRN 12/13/17 Melatonin 3 mg PO QHS 12/13/17 Warfarin [Coumadin] 5 mg PO SUMOWETHFR 12/13/17 Zinc Sulfate (50mg elemental) 220 mg PO QHS 12/13/17 [Zinc Sulfate] Acetaminophen [Tylenol] 1,000 mg PO Q6H PRN PRN 12/21/17 Ascorbic Acid [Vitamin C] 2,000 mg PO BID 12/21/17 Ergocalciferol [Vitamin D] 50,000 unit PO Q7D 12/21/17 Magnesium Oxide [Magnesium] 400 mg PO BID 12/21/17 Warfarin Sodium 4.5 mg PO TUSA 12/21/17 Cefadroxil 1 gm PO BID #14 tab 12/11/18 Cefadroxil 1 gm PO BID #14 tab 12/11/18 Venlafaxine XR [Effexor Xr] 75 mg PO DAILY #46 cap 12/11/18 - Family History Maternal No pertinent history Paternal No pertinent history Smoking Status: Never smoker Review of Systems Constitutional: Denies: Chills, Fever Eyes: Denies: Blurred vision, Drainage, Pain HEENT: Denies: Difficulty Hearing, Difficulty Swallowing, Sore Throat, Visual Changes Cardiovascular: Denies: Chest Pain, Palpitations, Syncope Respiratory: Denies: Cough, Shortness of Breath Gastrointestinal: Denies: Abdominal Pain, Nausea, Vomiting Genitourinary: Denies: Dysuria, Frequency Musculoskeletal: Denies: Joint Pain, Muscle pain Skin: Reports: - - Open wound left hip left heel right senior. Denies: Jaundice, Rash Neurological: Denies: Balance problems, Change in Speech, Difficulty swallowing, Focal weakness Psychiatric: Denies: Anxiety, Depression Endocrine: Denies: Change in Body Habitus Hematologic/ Lymphatic: Denies: Adenopathy - Physical Exam Vital Signs Temp Pulse Resp BP 97.1 F L 90 22 H 147/95 H 12/13/18 10:42 12/13/18 10:42 12/13/18 10:42 12/13/18 10:42 General: Oriented x3, Cooperative, - - Morbid obesity HEENT: Atraumatic, PERRLA Oral: Moist Mucosa Neck: Supple, No JVD Lungs: Clear to auscultation, Normal air movement Cardiovascular: Regular rate, Regular Rhythm Abdomen: Bowel Sounds Present, Soft, Non Tender, No Hepato-splenomegaly Extremities: No clubbing, Edema Skin: Rash Present, - - Cellulitis left hip open wounds left hip open wounds left heel and right senior Wound Measurements and Assessment WC - Nurse 1 - General Ulcer Measurement Start: 11/27/18 15:05 Freq: Status: Active Protocol: Activity Type Activity Date Activity User E-Sign Co-Sign Detail Recorded Client Recorded Date Recorded By Document 12/13/18 10:42 DL [id number] 12/13/18 10:58 DL 12/13/18 10:42 Wound Center Nurse 1 [Ulcer Assessment] #12 L Hip -Current Size (cm) - Length 3.4 -Current Size (cm) - Width 1.6 -Current Size (cm) - Depth 0.1 -Total Square Cm 5.44 -Photo Taken Yes -Exudate Amt Small -Exudate Type Serosanguineous -Wound Margin Distinct, Outline Attached -Granulation Amt None Present (0 %) -Necrosis Amt Large (67-100%) -Necrotic Tissue Type Adherent Slough -Structure Exposed N/A -Texture (Meg-wound Skin Appearance) Localized Edema -Moisture (Meg-wound Skin Appearance No Abnormality ) -Color (Meg-wound Skin Appearance) Erythema -Temperature (Meg-wound Skin No Abnormality Appearance) (Pt Warm) -Tenderness on Palpation (Meg-wound Yes Skin Appearance) -Ulcer Cleansing Rinsed/ Irrigated with Saline -Foul Odor after Cleansing No -Anesthetic Used 5% Lidocaine Gel #10 R LE Cluster -Current Size (cm) - Length 1.4 -Current Size (cm) - Width 0.5 -Current Size (cm) - Depth 0.1 -Total Square Cm 0.70 -Photo Taken No -Exudate Amt None Present -Wound Margin Flat & Intact -Granulation Amt Large (67-100%) -Granulation Quality [place] -Necrosis Amt None Present (0 %) -Structure Exposed N/A -Texture (Meg-wound Skin Appearance) Scarring -Moisture (Meg-wound Skin Appearance No Abnormality ) -Color (Meg-wound Skin Appearance) Hemosiderin Staining -Temperature (Meg-wound Skin No Abnormality Appearance) (Pt Warm) -Tenderness on Palpation (Meg-wound No Skin Appearance) -Ulcer Cleansing Rinsed/ Irrigated with Saline -Foul Odor after Cleansing No -Anesthetic Used 5% Lidocaine Gel #11 L Heel -Current Size (cm) - Length 0.1 -Current Size (cm) - Width 0.1 -Current Size (cm) - Depth 0.1 -Total Square Cm 0.01 -Photo Taken No -Exudate Amt Small -Exudate Type Serosanguineous -Wound Margin Indistinct, Non -Visible -Granulation Amt Large (67-100%) -Granulation Quality [place] -Necrosis Amt None Present (0 %) -Structure Exposed N/A -Texture (Meg-wound Skin Appearance) Scarring -Moisture (Meg-wound Skin Appearance Maceration, ) Weeping -Color (Meg-wound Skin Appearance) Hemosiderin Staining -Temperature (Meg-wound Skin No Abnormality Appearance) (Pt Warm) -Tenderness on Palpation (Meg-wound No Skin Appearance) -Ulcer Cleansing Rinsed/ Irrigated with Saline -Foul Odor after Cleansing No -Anesthetic Used 5% Lidocaine Gel [Edema Assessment] -Right Calf (cm) 57 -Right Ankle (cm) 31 -Left Calf (cm) 46 -Left Ankle (cm) 28.5 WC - Nurse 2 - General Ulcer CM Notes Start: 11/27/18 15:05 Freq: Status: Active Protocol: Activity Type Activity Date Activity User E-Sign Co-Sign Detail Recorded Client Recorded Date Recorded By Document 08/23/19 11:17 MW [id number] 12/13/18 11:23 MW 12/13/18 11:17 Wound Center Nurse 2 [Procedure/Treatment] #12 L Hip -Time 11:19 -Correct Patient Yes -Correct Side, Site, Position Yes -Correct Procedure Yes -Procedure Performed Yes -Type of Procedure Debridement -Clinical Debridement Subcutaneous -Post Debridement Size (cm) - Length 3.3 -Post Debridement Size (cm) - Width 1.8 -Post Debridement Size (cm) - Depth 0.2 -Total Square Cm 5.94 -Wound/Ulcer Outcome Not Healed -Ulcer Cleansing Rinsed/ Irrigated with Saline -Foul Odor after Cleansing No -Bioengineered Tissue No -Bleeding Controlled with Pressure -Offloading No -Treatment Response Procedure Tolerated Well #10 R LE Cluster -Time 11:22 -Correct Patient Yes -Correct Side, Site, Position Yes -Correct Procedure Yes -Procedure Performed No -Post Debridement Size (cm) - Length 0.1 -Post Debridement Size (cm) - Width 0.1 -Post Debridement Size (cm) - Depth 0.1 -Total Square Cm 0.01 -Wound/Ulcer Outcome Not Healed #11 L Heel -Time 11:23 -Correct Patient Yes -Correct Side, Site, Position Yes -Correct Procedure Yes -Post Debridement Size (cm) - Length 0.1 -Post Debridement Size (cm) - Width 0.1 -Post Debridement Size (cm) - Depth 0.1 -Total Square Cm 0.01 -Wound/Ulcer Outcome Not Healed [See Physician Procedure note for Specifics] Pain Scale: 0-10 Numeric [Pain] -Is Patient Pain Free? Yes Musculoskeletal: No Tenderness to Palpation of Joints or Extremities Lymphatic: No Cervical, Supraclavicular, or Inguinal Adenopathy Neurological: Cranial nerves II-XII grossly intact, Neuro grossly intact Psych/Mental Status: Normal Affect, Appropriate, Alert and oriented to time, place, person, mood and affect Debridement Note Post-Debridement Measurements/Treatment WC - Nurse 2 - General Ulcer CM Notes Start: 11/27/18 15:05 Freq: Status: Active Protocol: Activity Type Activity Date Activity User E-Sign Co-Sign Detail Recorded Client Recorded Date Recorded By Document 12/13/18 11:17 MW [id number] 12/13/18 11:23 MW 12/13/18 11:17 Wound Center Nurse 2 #12 L Hip -Time 11:19 -Correct Patient Yes -Correct Side, Site, Position Yes -Correct Procedure Yes -Procedure Performed Yes -Type of Procedure Debridement -Clinical Debridement Subcutaneous -Post Debridement Size (cm) - Length 3.3 -Post Debridement Size (cm) - Width 1.8 -Post Debridement Size (cm) - Depth 0.2 -Total Square Cm 5.94 -Wound/Ulcer Outcome Not Healed -Ulcer Cleansing Rinsed/ Irrigated with Saline -Foul Odor after Cleansing No -Bioengineered Tissue No -Bleeding Controlled with Pressure -Offloading No -Treatment Response Procedure Tolerated Well #10 R LE Cluster -Time 11:22 -Correct Patient Yes -Correct Side, Site, Position Yes -Correct Procedure Yes -Procedure Performed No -Post Debridement Size (cm) - Length 0.1 -Post Debridement Size (cm) - Width 0.1 -Post Debridement Size (cm) - Depth 0.1 -Total Square Cm 0.01 -Wound/Ulcer Outcome Not Healed #11 L Heel -Time 11:23 -Correct Patient Yes -Correct Side, Site, Position Yes -Correct Procedure Yes -Post Debridement Size (cm) - Length 0.1 -Post Debridement Size (cm) - Width 0.1 -Post Debridement Size (cm) - Depth 0.1 -Total Square Cm 0.01 -Wound/Ulcer Outcome Not Healed Pain Scale: 0-10 Numeric Is Patient Pain Free? Yes Wound debrided: Left hip wounds Type of Debridement: Excisional debridement Anesthesia Used: 5% Lidocaine Gel Depth: Down to and including healthy tissue, in the subcutaneous layer Percentage of wound debrided: 100 Instrument Used: 7mm curette Tissue Removed: Slough and fibrin Severity: Limited To Skin Breakdown Amount of bleeding with debridement: Mild Bleeding Controlled with: Compression and gauze Patient tolerated procedure well Assessment/Plan Active Problems Physical deconditioning (Chronic) Obesity (Chronic) Cellulitis (Acute) Open wound of right lower extremity (Acute) Bilateral lower extremity edema (Chronic) Delayed wound healing (Chronic) Lymphedema (Chronic) Current use of ferry terminal agent anticoagulation (Chronic) Venous insufficiency of both lower extremities (Chronic) Assessment: Healed right leg ulcers. Resolved cellulitis-MRSA. ruled out deep venous thrombosis right lower extremity. Left lower leg ulcers healed (chronic skin irritation and callous remains)maceration resolved. Lymphedema. Morbid obesity. No infection today. Malnutrition suspected. Leg contracture left. Walking difficulty. Left ankle and foot pain. Posterior tibialis tendon dysfunction left Plan: Left hip area apply Santyl to wound base cover with moistened fluffed gauze and dry dressing daily. Left heel right senior continue Aquacel extra dressing changes daily. Continue compression to bilateral lower legs. Increase protein use by getting [employer] drinking 30 g a day of protein. Increase iron pills to 2-3 times a day of iron. Patient is to try to concentrate on cutting out pop out of her diet. Follow-up 1 week
[2018-12-13 13:28] LABS: Hematocrit 35.3 % (37-47); Hemoglobin 11.5 g/dL (12.0-15.0); Mean Corp Hgb Conc 32.6 g/dL (32-36); Mean Corpuscular Hgb 29.5 pg (27.0-32.0); Mean Corpuscular Volume 90.5 fL (81-99); Platelet Count 169 K/mm3 (150-450); RBC Distribution Width SD 49.3 fl (35.1-43.9); White Blood Count 5.9 K/mm3 (4.4-11.0)
[2018-12-13 13:52] LABS: Prealbumin 16.8 mg/dL (20.0-40.0)
[2018-12-20 11:35] VITALS: BP 123/77; PULSE 81; RESP 18; TEMP 36.5; BMI 58.1
--- NOTE | 2018-12-20 12:17 | PN.PCM_ITS ---
(1) Cellulitis Status: Acute Current Visit: Yes Code(s): L03.90 - Cellulitis, unspecified (2) Open wound of right lower extremity Status: Acute Current Visit: Yes Code(s): S81.801A - Unspecified open wound, right lower leg, initial encounter (3) Bilateral lower extremity edema Status: Chronic Current Visit: Yes Code(s): R60.0 - Localized edema (4) Chronic ulcer of left foot limited to breakdown of skin Status: Chronic Current Visit: No Code(s): L97.521 - Non-pressure chronic ulcer of other part of left foot limited to breakdown of skin (5) Current use of residential anticoagulation Status: Chronic Current Visit: Yes Code(s): Z79.01 - custodial (current) use of anticoagulants (6) Delayed wound healing Status: Chronic Current Visit: Yes Code(s): T14.8XXD - Other injury of unspecified body region, subsequent encounter (7) Lymphedema Status: Chronic Current Visit: Yes Code(s): I89.0 - Lymphedema, not elsewhere classified (8) Obesity Status: Chronic Current Visit: Yes Qualifiers: Body mass index: BMI 45.0-49.9 Code(s): E66.9 - Obesity, unspecified (9) Physical deconditioning Status: Chronic Current Visit: Yes Code(s): R53.81 - Other malaise (10) Venous insufficiency of both lower extremities Status: Chronic Current Visit: Yes Code(s): I87.2 - Venous insufficiency (chronic) (peripheral) Type of Wound Date of Service: 12/20/18 Chief Complaint: Follow-up hospitalization for cellulitis of the left hip History of Wound: This is a 43-year-old grossly obese white female that came to me from the emergency room discharge for a cellulitis that she developed on her left hip. She has 2 round well-demarcated open wounds questionable origin that developed severe cellulitis and was hospitalized for 3 days. She received vancomycin in the emergency room and ceftezole and and was discharged on Cefobid 1 g twice daily for 14 days. The cellulitis around the area is much improved skin is supple denies pain but still has 2 open wounds with old blood vessels and slough that need to be debrided. Depth is 0.2 and the area is 2 sizes of a quarter. She also has been treated in the past recently for her left heel that is almost healed it is very superficial opening in her right senior again is very superficial and is almost healed. Patient has history of malnutrition her last prealbumin was 16.9 we will repeat it today and she appears to be anemic at 10.6. From the hospital her hemoglobin A1c was normal at 5.9 and her liver functions and kidney functions appear to be normal. We discussed at length of her cutting out pop and trying to increase her protein intake and gave her many suggestions suggested she go to the library and olive picker books on low-carb diet and carb diets. Patient seemed interested agreed with treatment plan. We will continue the Aquacel extra to her lower extremities as was ordered by other physicians and we will use Santyl to the left hip to debride the heart and slough. Patient to follow-up in 1 week Progress of Wound: Left heel still weeping and some erythema but mostly probably from the wrappings. Mother has been putting extra emollient on her lower extremities which is made her skin extremely supple .. Right senior is very small skin looks braised less than 0.1 just needs some skin over top. Left hip has 2 area clustered with punctuated in the base of each wound holes that are open debrided a lot of slough this week from the use of Santyl all week. The cellulitis around the 2 clustered wounds is very much gone its just supple nice skin. Pre-albumin was only 16 and she is Jaden been drinking the 26 g a day protein shakes and increasing her protein intake. Applied for puraply for next week we will continue the Santyl this week. - Physical Exam Vital Signs Temp Pulse Resp BP 97.7 F L 81 18 123/77 H 12/20/18 11:35 12/20/18 11:35 12/20/18 11:35 12/20/18 11:35 General: Oriented x3, Cooperative, Well developed HEENT: Atraumatic, PERRLA Oral: Moist Mucosa Neck: Supple, No JVD Lungs: Clear to auscultation, Normal air movement Cardiovascular: Regular rate, Regular Rhythm Abdomen: Bowel Sounds Present, Soft, Non Tender, No Hepato-splenomegaly Extremities: No clubbing, No edema, - - Right senior left hip cluster left heel Wound Measurements and Assessment WC - Nurse 1 - General Ulcer Measurement Start: 11/27/18 15:05 Freq: Status: Active Protocol: Activity Type Activity Date Activity User E-Sign Co-Sign Detail Recorded Client Recorded Date Recorded By Document 12/20/18 11:35 [facility] [id number] 12/20/18 11:50 [facility] 12/20/18 11:35 Wound Center Nurse 1 [Ulcer Assessment] #12 L Hip -Combined with other wound No -Current Size (cm) - Length 3 -Current Size (cm) - Width 1.7 -Current Size (cm) - Depth 0.3 -Total Square Cm 5.1 -Photo Taken No -Epithelialization None Present -Tunneling No -Undermining/Tunneling No -Circular Undermining No -Exudate Amt Small -Exudate Type Serous -Wound Margin Distinct, Outline Attached -Granulation Amt Small (1-33%) -Granulation Quality Red -Slough/Fibrin Yes -Necrosis Amt Large (67-100%) -Necrotic Tissue Type Adherent Slough -Texture (Meg-wound Skin Appearance) Assessed, Scarring -Moisture (Meg-wound Skin Appearance Assessed ) -Color (Meg-wound Skin Appearance) Assessed, Erythema -Temperature (Meg-wound Skin No Abnormality Appearance) (Pt Warm) -Tenderness on Palpation (Meg-wound No Skin Appearance) -Ulcer Cleansing Rinsed/ Irrigated with Saline -Foul Odor after Cleansing No -Anesthetic Used 5% Lidocaine Gel #10 R LE Cluster -Combined with other wound No -Current Size (cm) - Length 0.6 -Current Size (cm) - Width 0.4 -Current Size (cm) - Depth 0.1 -Total Square Cm 0.24 -Photo Taken No -Epithelialization Small 1-33% -Tunneling No -Undermining/Tunneling No -Circular Undermining No -Exudate Amt None Present -Wound Margin Flat & Intact -Granulation Amt Large (67-100%) -Granulation Quality Red -Slough/Fibrin No -Necrosis Amt None Present (0 %) -Texture (Meg-wound Skin Appearance) Assessed, Scarring -Moisture (Meg-wound Skin Appearance Assessed ) -Color (Meg-wound Skin Appearance) Assessed, Hemosiderin Staining -Temperature (Meg-wound Skin No Abnormality Appearance) (Pt Warm) -Tenderness on Palpation (Meg-wound No Skin Appearance) -Ulcer Cleansing Rinsed/ Irrigated with Saline -Foul Odor after Cleansing No -Anesthetic Used 5% Lidocaine Gel #11 L Heel -Combined with other wound No -Current Size (cm) - Length 0.1 -Current Size (cm) - Width 0.1 -Current Size (cm) - Depth 0.1 -Total Square Cm 0.01 -Photo Taken No -Epithelialization None Present -Tunneling No -Undermining/Tunneling No -Circular Undermining No -Texture (Meg-wound Skin Appearance) Assessed, Scarring,Rash -Moisture (Meg-wound Skin Appearance Assessed, ) Maceration -Color (Meg-wound Skin Appearance) Assessed, Erythema -Temperature (Meg-wound Skin No Abnormality Appearance) (Pt Warm) -Tenderness on Palpation (Meg-wound No Skin Appearance) -Ulcer Cleansing Rinsed/ Irrigated with Saline -Foul Odor after Cleansing No -Anesthetic Used 5% Lidocaine Gel [Edema Assessment] -Lower Limb Edema Present Yes -Right Calf (cm) 57.5 -Right Ankle (cm) 33.6 -Left Calf (cm) 48 -Left Ankle (cm) 30.6 WC - Nurse 2 - General Ulcer CM Notes Start: 11/27/18 15:05 Freq: Status: Active Protocol: Activity Type Activity Date Activity User E-Sign Co-Sign Detail Recorded Client Recorded Date Recorded By Document 12/20/18 11:58 MW [id number] 12/20/18 12:08 MW 12/20/18 11:58 Wound Center Nurse 2 [Procedure/Treatment] #12 L Hip -Time 11:59 -Correct Patient Yes -Correct Side, Site, Position Yes -Correct Procedure Yes -Procedure Performed Yes -Type of Procedure Debridement -Clinical Debridement Subcutaneous -Post Debridement Size (cm) - Length 3.0 -Post Debridement Size (cm) - Width 1.5 -Post Debridement Size (cm) - Depth 0.4 -Total Square Cm 4.50 -Wound/Ulcer Outcome Not Healed -Ulcer Cleansing Rinsed/ Irrigated with Saline -Foul Odor after Cleansing No -Bioengineered Tissue No -Bleeding Controlled with Pressure -Offloading No -Treatment Response Procedure Tolerated Well #10 R LE Cluster -Time 11:58 -Correct Patient Yes -Correct Side, Site, Position Yes -Correct Procedure Yes -Procedure Performed No -Post Debridement Size (cm) - Length 0.8 -Post Debridement Size (cm) - Width 0.3 -Post Debridement Size (cm) - Depth 0.1 -Total Square Cm 0.24 -Wound/Ulcer Outcome Not Healed -Ulcer Cleansing Rinsed/ Irrigated with Saline -Foul Odor after Cleansing No -Bioengineered Tissue No -Bleeding Controlled with Pressure -Offloading No -Treatment Response Procedure Tolerated Well #11 L Heel -Time 11:58 -Correct Patient Yes -Correct Side, Site, Position Yes -Correct Procedure Yes -Procedure Performed No -Wound/Ulcer Outcome Not Healed -Ulcer Cleansing Not Cleansed -Foul Odor after Cleansing No -Bioengineered Tissue No -Bleeding Controlled with NA -Offloading No -Treatment Response Procedure Tolerated Well [See Physician Procedure note for Specifics] Musculoskeletal: No Tenderness to Palpation of Joints or Extremities Lymphatic: No Cervical, Supraclavicular, or Inguinal Adenopathy Neurological: Cranial nerves II-XII grossly intact, Neuro grossly intact Psych/Mental Status: Normal Affect, Appropriate Debridement Note Post-Debridement Measurements/Treatment WC - Nurse 2 - General Ulcer CM Notes Start: 11/27/18 15:05 Freq: Status: Active Protocol: Activity Type Activity Date Activity User E-Sign Co-Sign Detail Recorded Client Recorded Date Recorded By Document 12/13/18 11:17 MW [id number] 12/13/18 11:23 MW Document 12/20/18 11:58 MW [id number] 12/20/18 12:08 MW 12/13/18 12/20/18 11:17 11:58 Wound Center Nurse 2 #12 L Hip -Time 11:19 11:59 -Correct Patient Yes Yes -Correct Side, Site, Position Yes Yes -Correct Procedure Yes Yes -Procedure Performed Yes Yes -Type of Procedure Debridement Debridement -Clinical Debridement Subcutaneous Subcutaneous -Post Debridement Size (cm) - Length 3.3 3.0 -Post Debridement Size (cm) - Width 1.8 1.5 -Post Debridement Size (cm) - Depth 0.2 0.4 -Total Square Cm 5.94 4.50 -Wound/Ulcer Outcome Not Healed Not Healed -Ulcer Cleansing Rinsed/ Rinsed/ Irrigated with Irrigated with Saline Saline -Foul Odor after Cleansing No No -Bioengineered Tissue No No -Bleeding Controlled with Pressure Pressure -Offloading No No -Treatment Response Procedure Procedure Tolerated Well Tolerated Well #10 R LE Cluster -Time 11:22 11:58 -Correct Patient Yes Yes -Correct Side, Site, Position Yes Yes -Correct Procedure Yes Yes -Procedure Performed No No -Post Debridement Size (cm) - Length 0.1 0.8 -Post Debridement Size (cm) - Width 0.1 0.3 -Post Debridement Size (cm) - Depth 0.1 0.1 -Total Square Cm 0.01 0.24 -Wound/Ulcer Outcome Not Healed Not Healed -Ulcer Cleansing Rinsed/ Irrigated with Saline -Foul Odor after Cleansing No -Bioengineered Tissue No -Bleeding Controlled with Pressure -Offloading No -Treatment Response Procedure Tolerated Well #11 L Heel -Time 11:23 11:58 -Correct Patient Yes Yes -Correct Side, Site, Position Yes Yes -Correct Procedure Yes Yes -Procedure Performed No -Post Debridement Size (cm) - Length 0.1 -Post Debridement Size (cm) - Width 0.1 -Post Debridement Size (cm) - Depth 0.1 -Total Square Cm 0.01 -Wound/Ulcer Outcome Not Healed Not Healed -Ulcer Cleansing Not Cleansed -Foul Odor after Cleansing No -Bioengineered Tissue No -Bleeding Controlled with NA -Offloading No -Treatment Response Procedure Tolerated Well Pain Scale: 0-10 Numeric Is Patient Pain Free? Yes Wound debrided: Right senior Type of Debridement: Selective debridement Anesthesia Used: 5% Lidocaine Gel Depth: Down to and including healthy tissue Percentage of wound debrided: 100 Instrument Used: 7mm curette Tissue Removed: Fibrin Severity: Limited To Skin Breakdown Amount of bleeding with debridement: None Bleeding Controlled with: Compression and gauze Patient tolerated procedure well - Additional Wound Wound debrided: Left heel Type of Debridement: Selective debridement Anesthesia Used: 5% Lidocaine Gel Depth: Down to and including healthy tissue, in the subcutaneous layer Percentage of wound debrided: 100 Instrument Used: 7mm curette Severity: Limited To Skin Breakdown Bleeding Controlled with: Pressure Patient tolerated procedure: Patient tolerated procedure well - Additional Wound Wound debrided: Left hip Type of Debridement: Excisional debridement Anesthesia Used: 5% Lidocaine Gel Depth: Down to and including healthy tissue, in the subcutaneous layer, to muscle Percentage of wound debrided: 100 Instrument Used: 7mm curette Tissue Removed: Slough and fibrin Severity: Fat Layer Exposed Amount of bleeding with debridement: Mild Bleeding Controlled with: Compression and gauze Patient tolerated procedure: Patient tolerated procedure well Assessment/Plan Active Problems Physical deconditioning (Chronic) Obesity (Chronic) Cellulitis (Acute) Open wound of right lower extremity (Acute) Bilateral lower extremity edema (Chronic) Delayed wound healing (Chronic) Lymphedema (Chronic) Current use of residential anticoagulation (Chronic) Venous insufficiency of both lower extremities (Chronic) Assessment: Healed right leg ulcers. Resolved cellulitis-MRSA. ruled out deep venous thrombosis right lower extremity. Left lower leg ulcers healed (chronic skin irritation and callous remains)maceration resolved. Lymphedema. Morbid obesity. No infection today. Malnutrition suspected. Leg contracture left. Walking difficulty. Left ankle and foot pain. Posterior tibialis tendon dysfunction left Plan: Left hip area apply Santyl to wound base cover with moistened fluffed gauze and dry dressing daily. Left heel right senior continue Aquacel extra dressing changes daily. Continue compression to bilateral lower legs. Increase protein use by getting Premier drinking 30 g a day of protein. Increase iron pills to 2-3 times a day of iron. Patient is to try to concentrate on cutting out pop out of her diet. Follow-up 1 week
== END 2018-12-21 23:59 ==
LOC: WC 11:30
PROVIDERS: Referring Provider Podiatrist; Visit Provider Podiatrist
DX: I87.2 Venous insufficiency (chronic) (peripheral) (principal); R26.2 Difficulty in walking, not elsewhere classified; L97.811 Non-pressure chronic ulcer of other part of right lower leg limited to breakdown of skin; I89.0 Lymphedema, not elsewhere classified; M19.90 Unspecified osteoarthritis, unspecified site; L97.822 Non-pressure chronic ulcer of other part of left lower leg with fat layer exposed; L97.421 Non-pressure chronic ulcer of left heel and midfoot limited to breakdown of skin; E66.01 Morbid (severe) obesity due to excess calories; Z91.19 Patient's noncompliance with other medical treatment and regimen; Z68.43 Body mass index [BMI] 50.0-59.9, adult; Z71.3 Dietary counseling and surveillance; Z86.711 Personal history of pulmonary embolism; Z79.899 Other long term (current) drug therapy; Z79.01 Long term (current) use of anticoagulants
CPT/HCPCS: 11042; 36415; 84134; 85027; 87070; 87075; 87205; 99212; G0463

== ENCOUNTER 2019-01-03 11:45 | Outpatient (RCR) | payer MEDICARE, MEDICAID, SELFPAY ==
[2018-12-22 00:41] VITALS: BP 123/77; PULSE 81; RESP 18; TEMP 36.5; BMI 56.0
[2018-12-27 12:07] VITALS: BP 135/85; PULSE 85; RESP 18; TEMP 36.2; BMI 56.0
--- NOTE | 2018-12-27 13:30 | PCM.WC.PN ---
(1) Open wound of right lower extremity Status: Acute Current Visit: Yes Qualifiers: Encounter type: subsequent encounter Qualified Code(s): S81.801D - Unspecified open wound, right lower leg, subsequent encounter Code(s): S81.801A - Unspecified open wound, right lower leg, initial encounter (2) Chronic ulcer of left foot limited to breakdown of skin Status: Chronic Current Visit: Yes Code(s): L97.521 - Non-pressure chronic ulcer of other part of left foot limited to breakdown of skin (3) Corns and callosities Status: Chronic Current Visit: Yes Code(s): L84 - Corns and callosities (4) Current use of fpc anticoagulation Status: Chronic Current Visit: Yes Code(s): 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 (5) Delayed wound healing Status: Chronic Current Visit: Yes Code(s): T14.8XXD - Other injury of unspecified body region, subsequent encounter (6) Lymphedema Status: Chronic Current Visit: Yes Code(s): I89.0 - Lymphedema, not elsewhere classified (7) Metabolic syndrome Status: Chronic Current Visit: Yes Code(s): E88.81 - Metabolic syndrome Type of Wound Date of Service: 12/27/18 Chief Complaint: Follow-up hospitalization for cellulitis of the left hip History of Wound: This is a 43-year-old grossly obese white female that came to me from the emergency room discharge for a cellulitis that she developed on her left hip. She has 2 round well-demarcated open wounds questionable origin that developed severe cellulitis and was hospitalized for 3 days. She received vancomycin in the emergency room and ceftezole and and was discharged on Cefobid 1 g twice daily for 14 days. The cellulitis around the area is much improved skin is supple denies pain but still has 2 open wounds with old blood vessels and slough that need to be debrided. Depth is 0.2 and the area is 2 sizes of a quarter. She also has been treated in the past recently for her left heel that is almost healed it is very superficial opening in her right senior again is very superficial and is almost healed. Patient has history of malnutrition her last prealbumin was 16.9 we will repeat it today and she appears to be anemic at 10.6. From the hospital her hemoglobin A1c was normal at 5.9 and her liver functions and kidney functions appear to be normal. We discussed at length of her cutting out pop and trying to increase her protein intake and gave her many suggestions suggested she go to the library and picking table worker books on low-carb diet and carb diets. Patient seemed interested agreed with treatment plan. We will continue the Aquacel extra to her lower extremities as was ordered by other physicians and we will use Santyl to the left hip to debride the heart and slough. Patient to follow-up in 1 week Progress of Wound: Left heel still weeping and no erythema but mostly probably from the wrappings. Mother has been putting extra emollient on her lower extremities which is made her skin extremely supple .. Right senior is healed but still sleeps. Left hip has 2 area clustered with punctuated in the base of each wound holes improved immensely on Santyl clean them out well. Pre-albumin was only 16 and she is Jaden been drinking the 26 g a day protein shakes and increasing her protein intake. Approved for puraply # 1 will be applied today - Physical Exam Vital Signs Temp Pulse Resp BP 97.1 F L 85 18 135/85 H 12/27/18 12:07 12/27/18 12:07 12/27/18 12:07 12/27/18 12:07 General: Oriented x3, Cooperative, Well developed HEENT: Atraumatic, PERRLA Oral: Moist Mucosa Neck: Supple, No JVD Lungs: Clear to auscultation, Normal air movement Cardiovascular: Regular rate, Regular Rhythm Abdomen: Bowel Sounds Present, Soft, Non Tender, No Hepato-splenomegaly Extremities: No clubbing, No edema Skin: - - Left upper thigh left senior and left heel Wound Measurements and Assessment WC - Nurse 1 - General Ulcer Measurement Start: 12/27/18 12:07 Freq: Status: Active Protocol: Activity Type Activity Date Activity User E-Sign Co-Sign Detail Recorded Client Recorded Date Recorded By Document 12/27/18 12:[address] [facility] [id number] 12/27/18 12:[address] [facility] 12/27/18 12:07 Wound Center Nurse 1 [Ulcer Assessment] #12 L Hip -Combined with other wound No -Photo Taken No -Epithelialization Small 1-33% -Tunneling No -Undermining/Tunneling No -Circular Undermining No -Classification - Thickness Partial Thickness -Exudate Amt Small -Exudate Type Serosanguineous -Wound Margin Distinct, Outline Attached -Granulation Amt Small (1-33%) -Granulation Quality Pale -Slough/Fibrin Yes -Necrosis Amt Small (1-33%) -Necrotic Tissue Type Adherent Slough -Structure Exposed None/Limited to Skin Breakdown -Texture (Meg-wound Skin Appearance) No Abnormality, Localized Edema -Moisture (Meg-wound Skin Appearance Assessed,Dry/ ) Scaly -Color (Meg-wound Skin Appearance) Assessed, Erythema -Temperature (Meg-wound Skin No Abnormality Appearance) (Pt Warm) -Tenderness on Palpation (Meg-wound Yes Skin Appearance) -Foul Odor after Cleansing No -Anesthetic Used 5% Lidocaine Gel #10 R LE Cluster -Combined with other wound No -Current Size (cm) - Length 0.1 -Current Size (cm) - Width 0.2 -Current Size (cm) - Depth 0.1 -Total Square Cm 0.02 -Photo Taken No -Undermining/Tunneling No -Circular Undermining No -Classification - Thickness Partial Thickness -Exudate Amt None Present -Wound Margin Distinct, Outline Attached -Granulation Amt Small (1-33%) -Granulation Quality Red -Slough/Fibrin No -Necrosis Amt None Present (0 %) -Necrotic Tissue Type Adherent Slough -Structure Exposed None/Limited to Skin Breakdown -Texture (Meg-wound Skin Appearance) Assessed, Induration -Moisture (Meg-wound Skin Appearance Assessed,Dry/ ) Scaly -Color (Meg-wound Skin Appearance) Assessed, Erythema -Temperature (Meg-wound Skin No Abnormality Appearance) (Pt Warm) -Tenderness on Palpation (Meg-wound No Skin Appearance) -Anesthetic Used 4% Lidocaine Solution #11 L Heel -Combined with other wound No -Photo Taken No -Epithelialization None Present -Tunneling No -Undermining/Tunneling No -Circular Undermining No -Classification - Thickness Partial Thickness -Exudate Amt None Present -Wound Margin Distinct, Outline Attached -Granulation Amt None Present (0 %) -Granulation Quality N/A -Slough/Fibrin No -Necrosis Amt None Present (0 %) -Structure Exposed None/Limited to Skin Breakdown -Texture (Meg-wound Skin Appearance) Assessed,Callus -Moisture (Meg-wound Skin Appearance Assessed,Dry/ ) Scaly -Color (Meg-wound Skin Appearance) Assessed,Palor -Temperature (Meg-wound Skin No Abnormality Appearance) (Pt Warm) -Tenderness on Palpation (Meg-wound No Skin Appearance) -Foul Odor after Cleansing No -Anesthetic Used 4% Lidocaine Solution [Edema Assessment] -Lower Limb Edema Present Yes -Right Calf (cm) 56 -Right Ankle (cm) 36 -Left Calf (cm) 42 -Left Ankle (cm) 33 WC - Nurse 2 - General Ulcer CM Notes Start: 12/27/18 12:07 Freq: Status: Active Protocol: Activity Type Activity Date Activity User E-Sign Co-Sign Detail Recorded Client Recorded Date Recorded By Document 12/27/18 12:41 MW [id number] 12/27/18 12:49 MW 12/27/18 12:41 Wound Center Nurse 2 [Procedure/Treatment] #12 L Hip -Time 12:42 -Correct Patient Yes -Correct Side, Site, Position Yes -Correct Procedure Yes -Procedure Performed Yes -Type of Procedure Debridement -Clinical Debridement Subcutaneous -Post Debridement Size (cm) - Length 2.5 -Post Debridement Size (cm) - Width 1.0 -Post Debridement Size (cm) - Depth 0.3 -Total Square Cm 2.50 -Wound/Ulcer Outcome Not Healed -Ulcer Cleansing Rinsed/ Irrigated with Saline -Foul Odor after Cleansing No -Bioengineered Tissue Yes -Type of bioengineered Tissue [id number] -Expiration Date 03/31/21 -Product Lot Number [id number] -Percent Used 100 -Saline Lot Number [id number] -Bleeding Controlled with Pressure -Offloading No -Treatment Response Procedure Tolerated Well #10 R LE Cluster -Time 12:42 -Correct Patient Yes -Correct Side, Site, Position Yes -Correct Procedure Yes -Procedure Performed No -Post Debridement Size (cm) - Length 0 -Post Debridement Size (cm) - Width 0 -Post Debridement Size (cm) - Depth 0 -Total Square Cm 0 -Wound/Ulcer Outcome Healed- Epithelialized #11 L Heel -Time 12:43 -Correct Patient Yes -Correct Side, Site, Position Yes -Correct Procedure Yes -Procedure Performed No -Wound/Ulcer Outcome Not Healed [See Physician Procedure note for Specifics] Musculoskeletal: No Tenderness to Palpation of Joints or Extremities Lymphatic: No Cervical, Supraclavicular, or Inguinal Adenopathy Neurological: Cranial nerves II-XII grossly intact, Neuro grossly intact Psych/Mental Status: Normal Affect, Appropriate Debridement Note Post-Debridement Measurements/Treatment WC - Nurse 2 - General Ulcer CM Notes Start: 12/27/18 12:07 Freq: Status: Active Protocol: Activity Type Activity Date Activity User E-Sign Co-Sign Detail Recorded Client Recorded Date Recorded By Document 12/27/18 12:41 MW [id number] 12/27/18 12:49 MW 12/27/18 12:41 Wound Center Nurse 2 #12 L Hip -Time 12:42 -Correct Patient Yes -Correct Side, Site, Position Yes -Correct Procedure Yes -Procedure Performed Yes -Type of Procedure Debridement -Clinical Debridement Subcutaneous -Post Debridement Size (cm) - Length 2.5 -Post Debridement Size (cm) - Width 1.0 -Post Debridement Size (cm) - Depth 0.3 -Total Square Cm 2.50 -Wound/Ulcer Outcome Not Healed -Ulcer Cleansing Rinsed/ Irrigated with Saline -Foul Odor after Cleansing No -Bioengineered Tissue Yes -Type of bioengineered Tissue [id number] -Expiration Date 03/31/21 -Product Lot Number [id number] -Percent Used 100 -Saline Lot Number [id number] -Bleeding Controlled with Pressure -Offloading No -Treatment Response Procedure Tolerated Well #10 R LE Cluster -Time 12:42 -Correct Patient Yes -Correct Side, Site, Position Yes -Correct Procedure Yes -Procedure Performed No -Post Debridement Size (cm) - Length 0 -Post Debridement Size (cm) - Width 0 -Post Debridement Size (cm) - Depth 0 -Total Square Cm 0 -Wound/Ulcer Outcome Healed- Epithelialized #11 L Heel -Time 12:43 -Correct Patient Yes -Correct Side, Site, Position Yes -Correct Procedure Yes -Procedure Performed No -Wound/Ulcer Outcome Not Healed Wound debrided: Left upper thigh Type of Debridement: Excisional debridement Anesthesia Used: 4% Lidocaine Solution Depth: Down to and including healthy tissue Percentage of wound debrided: 100 Instrument Used: 7mm curette Tissue Removed: Slough devitalized tissue Severity: Fat Layer Exposed Amount of bleeding with debridement: Mild Bleeding Controlled with: Compression and gauze Patient tolerated procedure well Assessment/Plan Active Problems Metabolic syndrome (Chronic) Corns and callosities (Chronic) Open wound of right lower extremity (Acute) Chronic ulcer of left foot limited to breakdown of skin (Chronic) Delayed wound healing (Chronic) Lymphedema (Chronic) 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 Resolved cellulitis-MRSA. ruled out deep venous thrombosis right lower extremity. Left lower leg ulcers healed (chronic skin irritation and callous remains)maceration resolved. Lymphedema. Morbid obesity. No infection today. Malnutrition suspected. Leg contracture left. Walking difficulty. Left ankle and foot pain. Posterior tibialis tendon dysfunction left Plan: Reply #1 applied to left hip area sling intact and leave on for 1 week. Left heel right senior continue Aquacel extra dressing changes daily. Continue compression to bilateral lower legs. Increase protein use by getting [employer] drinking 30 g a day of protein. Increase iron pills to 2-3 times a day of iron. Patient is to try to concentrate on cutting out pop out of her diet. Follow-up 1 week
[2019-01-03 11:59] VITALS: BP 146/86; RESP 20; TEMP 35.7; BMI 56.0
--- NOTE | 2019-01-03 12:38 | PN.PCM_ITS ---
(1) Open wound of right lower extremity Status: Acute Current Visit: Yes Qualifiers: Encounter type: subsequent encounter Qualified Code(s): S81.801D - Unspecified open wound, right lower leg, subsequent encounter Code(s): S81.801A - Unspecified open wound, right lower leg, initial encounter (2) Chronic ulcer of left foot limited to breakdown of skin Status: Chronic Current Visit: Yes Code(s): L97.521 - Non-pressure chronic ulcer of other part of left foot limited to breakdown of skin (3) Corns and callosities Status: Chronic Current Visit: Yes Code(s): L84 - Corns and callosities (4) Current use of care home anticoagulation Status: Chronic Current Visit: Yes Code(s): 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 (5) Delayed wound healing Status: Chronic Current Visit: Yes Code(s): T14.8XXD - Other injury of unspecified body region, subsequent encounter (6) Lymphedema Status: Chronic Current Visit: Yes Code(s): I89.0 - Lymphedema, not e lsewhere classified (7) Metabolic syndrome Status: Chronic Current Visit: Yes Code(s): E88.81 - Metabolic syndrome Type of Wound Date of Service: 01/03/19 Chief Complaint: Follow-up hospitalization for cellulitis of the left hip History of Wound: This is a 43-year-old grossly obese white female that came to me from the emergency room discharge for a cellulitis that she developed on her left hip. She has 2 round well-demarcated open wounds questionable origin that developed severe cellulitis and was hospitalized for 3 days. She received vancomycin in the emergency room and ceftezole and and was discharged on Cefobid 1 g twice daily for 14 days. The cellulitis around the area is much improved skin is supple denies pain but still has 2 open wounds with old blood vessels and slough that need to be debrided. Depth is 0.2 and the area is 2 sizes of a quarter. She also has been treated in the past recently for her left heel that is almost healed it is very superficial opening in her right senior again is very superficial and is almost healed. Patient has history of malnutrition her last prealbumin was 16.9 we will repeat it today and she appears to be anemic at 10.6. From the hospital her hemoglobin A1c was normal at 5.9 and her liver functions and kidney functions appear to be normal. We discussed at length of her cutting out pop and trying to increase her protein intake and gave her many suggestions suggested she go to the library and pick and shovel worker books on low-carb diet and carb diets. Patient seemed interested agreed with treatment plan. We will continue the Aquacel extra to her lower extremities as was ordered by other physicians and we will use Santyl to the left hip to debride the heart and slough. Patient to follow-up in 1 week Progress of Wound: Left heel still weeping at times but closed left hip closed patient is healed and will be discharged from the wound center. - Physical Exam Vital Signs Temp Pulse Resp BP 96.2 F L 85 20 H 146/86 H 01/03/19 11:59 12/27/18 12:07 01/03/19 11:59 01/03/19 11:59 General: Oriented x3, Cooperative, Well developed HEENT: Atraumatic, PERRLA Oral: Moist Mucosa Neck: Supple, No JVD Lungs: Clear to auscultation, Normal air movement Cardiovascular: Regular rate, Regular Rhythm Abdomen: Bowel Sounds Present, Soft, Non Tender, No Hepato-splenomegaly Extremities: No clubbing, No edema, - - Left heel and left hip area both wounds are closed Wound Measurements and Assessment WC - Nurse 1 - General Ulcer Measurement Start: 12/27/18 12:07 Freq: Status: Active Protocol: Activity Type Activity Date Activity User E-Sign Co-Sign Detail Recorded Client Recorded Date Recorded By Document 01/03/19 11:59 MW [id number] 01/03/19 12:10 MW 01/03/19 11:59 Wound Center Nurse 1 [Ulcer Assessment] #12 L Hip -Combined with other wound No -Current Size (cm) - Length 2.7 -Current Size (cm) - Width 1.7 -Current Size (cm) - Depth 0.1 -Total Square Cm 4.59 -Photo Taken No -Tunneling No -Undermining/Tunneling No -Circular Undermining No -Exudate Amt Medium -Exudate Type Serosanguineous -Wound Margin Flat & Intact -Granulation Amt None Present (0 %) -Granulation Quality N/A -Slough/Fibrin Yes -Necrosis Amt Large (67-100%) -Necrotic Tissue Type Adherent Slough -Structure Exposed N/A -Texture (Meg-wound Skin Appearance) No Abnormality, Assessed -Moisture (Meg-wound Skin Appearance Assessed,Dry/ ) Scaly -Color (Meg-wound Skin Appearance) No Abnormality, Assessed -Temperature (Meg-wound Skin No Abnormality Appearance) (Pt Warm) -Ulcer Cleansing SOAP AND WATER -Foul Odor after Cleansing No -Anesthetic Used 4% Lidocaine Solution,5% Lidocaine Gel #11 L Heel -Combined with other wound No -Current Size (cm) - Length 0.1 -Current Size (cm) - Width 0.1 -Current Size (cm) - Depth 0.1 -Total Square Cm 0.01 -Photo Taken No -Epithelialization Small 1-33% -Tunneling No -Undermining/Tunneling No -Circular Undermining No -Exudate Amt Small -Exudate Type Serous -Wound Margin Thickened -Granulation Amt None Present (0 %) -Granulation Quality N/A -Slough/Fibrin Yes -Necrosis Amt Large (67-100%) -Necrotic Tissue Type Adherent Slough -Structure Exposed N/A -Texture (Meg-wound Skin Appearance) Assessed, Localized Edema -Moisture (Meg-wound Skin Appearance Assessed,Dry/ ) Scaly -Color (Meg-wound Skin Appearance) No Abnormality, Assessed -Temperature (Meg-wound Skin No Abnormality Appearance) (Pt Warm) -Tenderness on Palpation (Meg-wound No Skin Appearance) -Ulcer Cleansing SOAP AND WATER -Foul Odor after Cleansing No [Edema Assessment] -Lower Limb Edema Present No -Right Calf (cm) 60.0 -Right Ankle (cm) 35.0 -Left Calf (cm) 49.5 -Left Ankle (cm) 31.5 Musculoskeletal: No Tenderness to Palpation of Joints or Extremities Lymphatic: No Cervical, Supraclavicular, or Inguinal Adenopathy Neurological: Cranial nerves II-XII grossly intact, Neuro grossly intact Psych/Mental Status: Normal Affect, Appropriate Debridement Note Post-Debridement Measurements/Treatment WC - Nurse 2 - General Ulcer CM Notes Start: 12/27/18 12:07 Freq: Status: Active Protocol: Activity Type Activity Date Activity User E-Sign Co-Sign Detail Recorded Client Recorded Date Recorded By Document 12/27/18 12:41 MW [id number] 12/27/18 12:49 MW 12/27/18 12:41 Wound Center Nurse 2 #12 L Hip -Time 12:42 -Correct Patient Yes -Correct Side, Site, Position Yes -Correct Procedure Yes -Procedure Performed Yes -Type of Procedure Debridement -Clinical Debridement Subcutaneous -Post Debridement Size (cm) - Length 2.5 -Post Debridement Size (cm) - Width 1.0 -Post Debridement Size (cm) - Depth 0.3 -Total Square Cm 2.50 -Wound/Ulcer Outcome Not Healed -Ulcer Cleansing Rinsed/ Irrigated with Saline -Foul Odor after Cleansing No -Bioengineered Tissue Yes -Type of bioengineered Tissue [id number] -Expiration Date 03/31/21 -Product Lot Number [id number] -Percent Used 100 -Saline Lot Number [id number] -Bleeding Controlled with Pressure -Offloading No -Treatment Response Procedure Tolerated Well #10 R LE Cluster -Time 12:42 -Correct Patient Yes -Correct Side, Site, Position Yes -Correct Procedure Yes -Procedure Performed No -Post Debridement Size (cm) - Length 0 -Post Debridement Size (cm) - Width 0 -Post Debridement Size (cm) - Depth 0 -Total Square Cm 0 -Wound/Ulcer Outcome Healed- Epithelialized #11 L Heel -Time 12:43 -Correct Patient Yes -Correct Side, Site, Position Yes -Correct Procedure Yes -Procedure Performed No -Wound/Ulcer Outcome Not Healed No debridement was completed today Assessment/Plan Active Problems Metabolic syndrome (Chronic) Corns and callosities (Chronic) Open wound of right lower extremity (Acute) Chronic ulcer of left foot limited to breakdown of skin (Chronic) Delayed wound healing (Chronic) Lymphedema (Chronic) Current use of care home anticoagulation (Chronic) Assessment: Healed right leg ulcers. Resolved cellulitis-MRSA. ruled out deep venous thrombosis right lower extremity. Left lower leg ulcers healed (chronic skin irritation and callous remains)maceration resolved. Lymphedema. Morbid obesity. No infection today. Malnutrition suspected. Leg contracture left. Walking difficulty. Left ankle and foot pain. Posterior tibialis tendon dysfunction left Plan: Discharge from the wound center follow-up as needed. Patient healed after 1 application of pure apply to the left hip
== END 2019-01-20 23:59 ==
LOC: WC 11:45
PROVIDERS: Referring Provider Podiatrist; Visit Provider Podiatrist
DX: L97.122 Non-pressure chronic ulcer of left thigh with fat layer exposed (principal); I89.0 Lymphedema, not elsewhere classified; E88.81 Metabolic syndrome and other insulin resistance; L84 Corns and callosities; E66.01 Morbid (severe) obesity due to excess calories; Z68.43 Body mass index [BMI] 50.0-59.9, adult; Z71.3 Dietary counseling and surveillance; R26.2 Difficulty in walking, not elsewhere classified
CPT/HCPCS: 15271; 99213; Q4196; G0463

== ENCOUNTER 2019-03-22 15:42 | Emergency (ER) | payer MEDICARE, MEDICAID, SELFPAY ==
[2019-03-22 15:44] VITALS: BP 148/100; PULSE 119; RESP 18; TEMP 37.7; O2SAT 93; BMI 54.8
[2019-03-22 16:02] VITALS: RESP 18
--- NOTE | 2019-03-22 16:17 | CT_ITS ---
STUDY: CT ABDOMEN AND PELVIS WITH CONTRAST REASON FOR EXAM: Female, 43 years old. Left-sided abdominal pain for 3 days RADIATION DOSAGE (If Supplied By Facility): CTDIvol = ( 24.33 ) mGy, DLP = ( 1913.77 ) mGycm TECHNIQUE: CT images were obtained from the dome of the diaphragm to the symphysis pubis without oral contrast. IV Isovue 300 100 was administered. Sagittal and coronal images were reconstructed. Individualized dose optimization techniques were used for this CT. COMPARISON: None. FINDINGS: The visualized lung bases are unremarkable. The visualized portions of the heart are within normal limits. Normal liver. Normal gallbladder and extrahepatic biliary system. Normal spleen. Normal pancreas. Normal bilateral adrenal glands. Normal right kidney. Normal left kidney. There is a 3-4 mm stone in the right lower pole calyx without hydronephrosis. There are no ureteral stones. There is moderately extensive inflammatory change in the left lower quadrant superimposed on adjacent descending colonic diverticulitis. There is no perienteric abscess. There is no upstream intestinal obstruction. Remainder of the bowel is normal. Appendix is not well seen. Normal abdominal aorta. Normal inferior vena cava. Normal retroperitoneum. Normal urinary bladder. Normal abdominal wall. There are extensive degenerative changes in the lower lumbar spine with various degree thecal sac stenosis. CT/Abdomen/Pelvis W IV Cont ONLY IMPRESSION: 1. Left lower quadrant diverticulitis without abscess. 2. Lumbar spinal canal stenosis. Electronically Signed: Mitch Powell, at 18:45 EST Tel , Service support ,
--- NOTE | 2019-03-22 16:18 | ED.VISSUMM ---
- ER Visit Summary Date of Service: 03/22/19 Chief Complaint: Abdominal pain History of Present Illness: The patient is a 43 F who tells me that on at 1500 hrs. she developed abdominal pain left lower quadrant. She describes it as sharp constant. She notes chronic diarrhea for decades. She did not take anything for the pain at home. She notes her chronic diarrhea has not changed in the amount of the consistency of it. She had a colonoscopy she thinks may be a year ago. She is on Coumadin for pulmonary embolism. No reported fevers Physical Examination: Temperature is 99.9 heart rate of 119 blood pressure 148/100 pulse ox 97% respirations are 18. Gen: Well-nourished well-developed obese Head: Normocephalic atraumatic Eyes: Perrl EOMI ENT: TMs clear no rhinorrhea moist mucous membranes Neck: Supple no lymphadenopathy no JVD nontender CVS: Regular rate rhythm no murmurs normal S1-S2 Respiratory: No distress clear to auscultation bilaterally chest nontender Abdomen: Soft palpation left lower quadrant nondistended normal bowel sounds no masses Back: Nontender Extremity: Nontender no edema Skin: Normal color no rash Neuro: alert orientated ?3 CN II-XII intact normal strength sensation reflexes gait cerebellar Psych: Normal affect normal mood Test Results: White count 10.8. Hemoglobin 11.8. INR 1.9. Urinalysis negative. test negative. CT the pelvis demonstrates a focal area of diverticulitis without abscess formation or obvious free air. Emergency Department Course and Treatment: Patient will be discharged home with prescriptions for Cipro and Flagyl. I will write for pain medication. She is to follow-up with her doctor early next week. Impression: 1. Acute diverticulitis This note was generated with Tapactive dictation software. It may contain incorrect words, spelling, and punctuation that were not noted in review of the chart prior to signing ED Disposition - Plan for ED Patient: Disposition: Home or Assisted Living Instructions: Diverticulitis Prescriptions: Ciprofloxacin [Cipro] 500 mg PO BID #14 tab Prescription Printed metroNIDAZOLE [Flagyl] 500 mg PO Q8H #21 tab Prescription Printed Hydrocodone Bitart/Apap 5-325 [[place] 5MG-325MG] 1 tab PO Q6H PRN PRN 3 Days #12 tab PRN Reason: Pain Prescription Printed Referrals: Marcela Sargent MD [Primary Care Provider] - 3-5 Days
[2019-03-22 16:55] LABS: Color, Urine Yellow (Yellow); Glucose, Dipstick Normal (Normal); Internal QC Validated? YES +Cl - CLEAR BKGD; Ketone-Dipstick 5 mg/dl (Negative); Leukocyte Esterase-Dipstick Negative /ul (Negative); Nitrite-Dipstick Negative (Negative); Occult Blood-Urine 150 /ul (Negative); Protein-Dipstick 100 mg/dl (Negative); Urine Bilirubin Dipstick Negative (Negative); Urine Clarity Sl. Cloudy (Clear); Urine Urobilinogen Normal (Normal)
[2019-03-22 16:59] LABS: Pregnancy, Urine Negative Negative
[2019-03-22 17:01] LABS: Red Blood Cells-Urine 0-5 SEEN /hpf (0-5); Squamous Epithelial Cells - UA 5-10 SEEN /hpf (5-10); White Blood Cells 0-5 SEEN /hpf (0-5)
[2019-03-22 17:03] LABS: Bacteria 1+ /hpf (None Seen); Mucous, Urine 1+ /hpf (<or=2+)
[2019-03-22 17:18] VITALS: BP 127/71; PULSE 98; RESP 18; TEMP 37.7; O2SAT 98
[2019-03-22 17:25] LABS: Absolute Lymphocyte Count 0.75 X10^3/uL (0.83-4.51); Absolute Neutrophil Count 9.3 X10^3/uL (2.0-7.7); Basophil# 0.03 X10^3/uL; Basophil% 0.3 % (0-1); Eosinophil# 0.12 X10^3/uL; Eosinophils% 1.1 % (0-5); Hematocrit 36.1 % (37-47); Hemoglobin 11.8 g/dL (12.0-15.0); Lymphocyte # 0.75 X10^3/ul (4.0); Mean Corp Hgb Conc 32.7 g/dL (32-36); Mean Corpuscular Hgb 30.7 pg (27.0-32.0); Monocyte# 0.55 X10^3/uL; Monocyte% 5.1 % (0-10); NRBC Flagged by Analyzer 0 % (0-5); Neutrophil # 9.29 X10^3/uL (2.7-7.7); Neutrophil % 86.1 % (47-70); Platelet Count 163 K/mm3 (150-450); RBC Distribution Width CV 14.7 % (11.6-14.6); RBC Distribution Width SD 51.3 fl (35.1-43.9); Red Blood Count 3.84 M/mm3 (4.2-5.4); White Blood Count 10.8 K/mm3 (4.4-11.0)
[2019-03-22 17:34] LABS: International Normalized Ratio 1.9; Prothrombin Time (Protime)PT. 21.8 SECONDS (11.7-14.9)
[2019-03-22 17:49] LABS: ALB/GLOB Ratio 0.7 RATIO (0.9-2.4); AST(SGOT) 11 U/L (15-37); Alanine Aminotransfer ALT/SGPT 35 U/L (13-56); Albumin, Serum 3.4 g/dL (3.2-5.0); Alkaline Phosphatase 91 U/L (45-117); Anion Gap 7 (5-15); BUN 18 mg/dL (7-18); BUN/Creat Ratio 17.6 RATIO (10-20); Calcium,Total 8.7 mg/dL (8.5-10.1); Chloride 107 mmol/L (98-107); Creatinine, Serum 1.02 mg/dL (0.55-1.02); EST Glomerular Filtration Rate 63 mL/min (>60); Est Glom Filt Rate - Afr Amer 76 mL/min (>60); Estimated Creatinine Clearance 69.87 ml/min; Globulin 4.8 g/dL (2.2-4.2); Glucose 94 mg/dL (74-106); Lipase 81 U/L (73-393); Potassium 3.9 mmol/L (3.5-5.1); Protein, Total 8.2 g/dL (6.4-8.2); Sodium Level 140 mmol/L (136-145)
[2019-03-22 19:07] VITALS: BP 136/72; PULSE 103; RESP 16; O2SAT 96
== END 2019-03-22 19:08 | disposition home or self-care (01) ==
PROVIDERS: Emergency Provider Emergency Medicine
DX: K57.32 Diverticulitis of large intestine without perforation or abscess without bleeding (principal); E66.9 Obesity, unspecified; Z86.711 Personal history of pulmonary embolism; Z79.01 Long term (current) use of anticoagulants
CPT/HCPCS: 74177; 80053; 81001; 81025; 83690; 85025; 85610; 99283; Q9967; A4216

== ENCOUNTER 2019-05-27 15:00 | Outpatient (RCR) | payer MEDICARE, MEDICAID, SELFPAY ==
[2018-11-27 15:05] VITALS: BMI 58.1
--- NOTE | 2018-11-29 09:41 | HP.PTEVAL ---
Patient's Visit Information PUSHPA ORELLANA is a 43 year old F referred to Physical Therapy by Dariana Swartz DPM with a diagnosis of Difficulty with gait, LE edema, obesity. Date of Evaluation: 11/28/18 Physical Therapist: Alton Morales DPT - Visit Plan Frequency: 2x /Week Duration: 6-8 weeks Plan: Start with R hip and core strengthening, endurance training, HS and hip flexors flexibility. BLE wound dressing techniques. I talked with the patient about also really looking into her diet. She reports she consume a decent amount of sugar including drinks. I talked to her about this, reducing portion sizes and eating more frequent meals. - Subjective Findings: Pt. is here today for her initial evaluation with diagnosis of difficulty walking, BLE edema, and chronic BLE wounds. Pt. reports having wounds for years. Pt. is here wi reports of need to lose wt., increase cardiovascular fitness, R hip strength. Pt. reports being able to walking upto 100', but has to take many breaks to do so due to breathingk difficulties. Pt. reports being unable to reach her legs to do her dressing and compression, so her mother is doing this for her. Pt. reports that if her mother is not there her compression does not get put on. Pt. denies N/T in either LE. Pt. is hopeful to increase ROM to raech her legs to complete dressing changes, lose wt, increase her endurance and ambulate further with decreased issues. - Pain R hip Pain Intensity (Out of 10): 2 Pain Intensity Range: 1, 4 Lumbar spine Pain Intensity (Out of 10): 2 Pain Intensity Range: 0, 4 - Objective POSTURE: Pt. is over wt. Pt. has general flexed posture in stance, she has a brace she wears on her L foot, for a foot deformitiy. Pt's legs were wrapped, so I did not look at her wounds, (wound center is managing). PALPATION: pt. has tenderness in BLEs generally throughout. Pt. has increased soreness in B hips, R worse than L. NEURO: normal throughout. ROM: PT. has tight HS and hip flexors. Pt. has normal hip ROM without increase in pain. Pt. has slight lack in hip ER/IR, but minimal. MMT: Pt. has good muscle strength throughout bilateral LEs, except with her hip flexors/hip abductors 4/5 bilaterally. GAIT: Pt. ambulates with decreasd step length, she has increased lateral sway and conchis hip ER in stance. Pt. ahs generalized flexed posture as well. 5 minute walk test 509ft., but had to take numeroues standing rest periods seoncdary to increased fatigue. Pt. became visible out of breath throughout. SpO2 remianed above 90% throughout. Pt. had icnrased R hip pain was sore, but not limiting. - Goals Goal 1:: Pt. to be I with HEP. Goal Time Frame: 6-8 Weeks Goal 2:: Pt. to walk 1000ft. during 5 minute walk test indicating increased walking endurance. Goal Time Frame: 4-6 Weeks Goal 3:: Pt. to be I with with BLE wound dressing. Goal Time Frame: 4-6 Weeks Goal 4:: Pt. to have increased BLE strength by 1/2 grade of all effected musculature. Goal Time Frame: 6-8 Weeks Goal 5:: Pt. to report decreased pain in R hip and lumbar spine with all walking and functional mobility. Goal Time Frame: 6-8 Weeks - Rehabilitation Potential Physical Therapy Diagnosis: Pt. has signs and symptoms consistent with difficulty gait (both fatigue and BLE pain), chronic BLE edema and wounds, and obesity. Pt. would benefit from PT to increase RLE strength, increase her flexibility to be able to achieve independent wounds dressing and increase her endurance to increase walking tolerance for increased healthy life style. Rehabilitation Potential: Fair - Anticipated Interventions Patient/Client Instruction: Educate patient on: Condition, Plan of Care, Risk Factors, Benefits of Fitness Program For the Purpose of:: To facilitate caregiver knowledge, To improve self management, To prevent re-injury, To improve ability to perform tasks related to life management, To improve tolerance to ADL's Therapeutic Exercise to Include: Strength training, Power training, Endurance training, Balance training, Body mechanics, Postural training, Flexibilty training, Gait and locomotor training, Passive ROM, Active ROM For the Purpose of:: To decrease pain, To decrease swelling/inflammation, To increase ROM, To improve nutrient delivery to tissue, To increase oxygenation perfusion, To improve muscle performance and motor function, To improve ability to perform ADL's, To increase tolerance to activity/condition/position, To improve performance and independence with ADL's, To decrease level of supervision to perform tasks, To improve ability of physical actions for home/community/work/leisure, To improve gait and locomotor functions, To improve health of tissue, To decrease soft tissue restriction, To increase flexibility/ROM, To improve endurance Thank you for the opportunity to evaluate your patient. For Medicare and Medicare HMO plans, please review the plan of care and approve it. It will need to be FAXED BACK to us at [phone] for Medicare purposes. For Medicare only, by signing this I certify the plan of care. Please let me know if there are questions or concerns regarding this plan of care. Physician Signature: Date:
--- NOTE | 2019-05-27 15:57 | HP.PTDCSUM ---
HP - PT D/C Summary It has been my pleasure to treat PUSHPA ORELLANA under orders from Dariana Swartz DPM, for the diagnosis of Difficulty with gait, LE edema, obesity for a total of 20 visit(s). Discharge Date: Please see the following information for a summary of their discharge status. - Subjective Subjective: Pt. reports overall is doing better with reaching her legs and with walking. Pt. has not had any ulcers since. Pt. is able to reach her left leg. She is able to put her brace and sock on. Pt. is still unable to put her R brace and sock on. Pt. reprots not being able to put her wrap on her RLE. Uses sock aide to don her R sock. Pt. is independent with HEP for gym and home program her stretching and walking program. - Pain R hip Pain Intensity (Out of 10): 3 Lumbar spine Pain Intensity (Out of 10): 3 L hip Pain Intensity (Out of 10): 0 L knee Pain Intensity (Out of 10): 0 - Overall Improvement % Improvement: 80 - Objective Objective/Function: ROM- RLE- hip: flexion 90deg, abd 45deg, IR 15deg., HS legnth 40deg LLE- hip- flexion 110deg, abd 45deg, HS length 70deg, hip ER 40deg, [id number]. MMT: 5/5 strength throughout., increasd pain with hip flexion and abduction on R side. Poor core strength noted. 1675 ft with 6 MWT- increased fatigue noted. Patient still ambulates with R lateral shift, R leg is shorter than L might need built up shoe, too much differnce to effectively fix with heel lift. Pt. is able to get L wraps on and don sock/shoe. Pt. is able to get R shoe and sock on with sock aide, but not able to wrap her RLE. - Goals Goal 1:: Pt. to be I with HEP. Goal Progress: Goal Met Goal 2:: Pt. to walk 1000ft. during 5 minute walk test indicating increased walking endurance. Goal Progress: Goal Met Goal 3:: Pt. to be I with with BLE wound dressing. Goal Progress: Progressing Goal 4:: Pt. to have increased BLE strength by 1/2 grade of all effected musculature. Goal Progress: Goal Met Goal 5:: Pt. to report decreased pain in R hip and lumbar spine with all walking and functional mobility. Goal Progress: Progressing - Plan Plan: Pt. to be DC from PT at this point in time. Pt. does have conserns about her back, but is to be evaluated for his next week. - D/C Information If there are questions or concerns regarding this patient's physical therapy, please feel free to call me at [phone]. Thank you for the referral of this patient. Sincerely, TWILA HagenT
== END 2019-05-27 19:00 | disposition home or self-care (01) ==
LOC: PT 15:00
PROVIDERS: Referring Provider Podiatrist; Visit Provider Podiatrist
DX: R26.2 Difficulty in walking, not elsewhere classified (principal); R60.0 Localized edema; E66.9 Obesity, unspecified
CPT/HCPCS: 97110; 97113; 97116; 97161; 97164; 97530

== ENCOUNTER 2019-07-09 16:30 | Outpatient (RCR) | payer MEDICARE, MEDICAID, SELFPAY ==
--- NOTE | 2019-05-28 09:54 | HP.PTEVAL_ITS ---
Patient's Visit Information PUSHPA ORELLANA is a 43 year old F referred to Physical Therapy by Joseph Sargent MD with a diagnosis of R hip and lumbar spine pain. Date of Evaluation: 05/28/19 Physical Therapist: Alton Morales DPT - Visit Plan Frequency: 2x /Week Duration: 4 Weeks Plan: Start with flexion based exercises, HS stretching, neutral spine strengthening. May use IFC for pain control if needed. May utilize aquatic setting for 1-2 visits to educate on independent program, rest need to be land PT. - Subjective Findings: Pt. is here today for her initial evaluation with diagnosis of B hip and low back pain. Pt. reprots greatest pain at R hip and lumbar spine, greatest with walking, standing, and stairs. Pt. has multiple co morbidities including obesity, L foot pathology, venous insufficiency, and chronic wounds. Pt. is known to this PT. Pt. has no current wounds, but has chronic wounds in BLEs, distally. Pt. has known LLE leg length discrepency. 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 Has not trialed heel lifts. Pt. is hopeful to reduce symptoms in order to get back to all recreational and gym exercises. - Pain R hip Pain Intensity (Out of 10): 6 Pain Intensity Range: 4, 10 Lumbar spine Pain Intensity (Out of 10): 4 Pain Intensity Range: 1, 10 - Objective POSTURE: PT. has generally flexed posture, R later shift with trunk correction. Pt. is over wt and anterior pelvic tilt. PALPATION: Pt. has increased te nderness at lumbar spine, multifidus, R gluteal region, piriformis, R greater trochanter. NEURO: Pt. has normal sensation of BLEs, except RLE distal LE, decreased sensation to light touch. Normal DTR bilaterally. ROM: LUMBAR SPINE: flexion- mod loss decrease better, extension- max loss increase NW, SB R mod loss decrease better, SB L increase NW. rotation mod loss bilat increase NW. R hip- flexion 90deg increase NW, IR 15deg increase NW, ER 30deg increase NW. Extension 0deg increase NE. R hip- flexion 110deg NE, ext 10deg NE, IR 30deg NE (tight), ER 30deg NE. GAIT: Pt. has decreased hip extension, incraesed L latearl wt. shift during stance phase. Pt. has fall off onto LLE during stance phase. Decreased stride length, flexed posture. L hip IR with foot INV. STAIRS: step to pattern with increased symptoms with use of BHR. - Special Tests L/S Slump test left side: Negative L/S Slump test right side: Negative L/S Left Straight Leg Raise: Negative L/S Right Straight Leg Raise: Negative Lumbar Standing: Flexion - Mechanical Response: No effect Lumbar Standing: Flexion - Symptoms During Testing: Decreases Lumbar Standing: Flexion - Symptoms After Testing: Better Lumbar Standing: Extension - Mechanical Response: No effect Lumbar Standing: Extension - Symptoms During Testing: Increases Lumbar Standing: Extension - Symptoms After Testing: Worse Lumbar Standing: Right Side Glides - Mechanical Response: No effect Lumbar Standing: Right Side [place] - Symptoms During Testing: Increases Lumbar Standing: Right Side [place] - Symptoms After Testing: No worse Lumbar Standing: Left Side [place] - Mechanical Response: No effect Lumbar Standing: Left Side [place] - Symptoms During Testing: Decreases Lumbar Standing: Left Side [place] - Symptoms After Testing: No better Lumbar Lying: Flexion - Mechanical Response: No effect Lumbar Lying: Flexion - Symptoms During Testing: Decreases Lumbar Lying: Flexion - Symptoms After Testing: Better Comments:: unable to lie on stomach to trial REIL. R Hip Scour: Positive R Hip FADDIR - Labrum: Positive Comment: Pt. has signs of hypomobile R hip, OA?? - Goals Goal 1:: LTG: Pt. to be I with HEP for flexion based exercises of spine, and core stability exercises. Goal Time Frame: 4-6 Weeks Goal 2:: STG: Pt. to ambulate household distances with decrease pain in R hip and lumbar spine to 2/10. Goal Time Frame: 2-4 Weeks Goal 3:: STG: Pt. to sleep throughout the night with 0-2/10 pain. Goal Time Frame: 2-4 Weeks Goal 4:: LTG: Pt. to have increased BLE and core strength by 1/2 grade of all effected musculature. Goal Time Frame: 4-6 Weeks Goal 5:: STG: Pt. have increased lumbar and R hip ROM increased by 25% in all effected ranges. Goal Time Frame: 2-4 Weeks Goal 6:: LTG: Pt. to be I with all gym exercises allowing for independent management of symptoms. Goal Time Frame: 4-6 Weeks - Rehabilitation Potential Physical Therapy Diagnosis: Pt. has signs and symptoms consistent with lumbar spine pain and R hip pain. Pt. has test suggesting spinal stenosis and most likely R hip OA. Pt. has multiple co morbidities effecting her gait and ability to complete functional mobility. Pt. has tight HS, limited ROM secondary to adipose tissue and a L foot issue effecting her ability to ambulate properly. All of this included apears to be effecting her R hip and lumbar spine. Rehabilitation Potential: Fair - Anticipated Interventions Patient/Client Instruction: Educate patient on: Condition, Plan of Care, Risk Factors, Benefits of Fitness Program For the Purpose of:: To facilitate caregiver knowledge, To improve self m anagement, To prevent re-injury, To improve ability to perform tasks related to life management, To improve tolerance to ADL's Therapeutic Exercise to Include: Strength training, Body mechanics, Postural training, Flexibilty training, In an aquatic setting, Passive ROM, Active ROM, Dynamic Lumbar Stabilization, Malika Exercises For the Purpose of:: To decrease pain, To increase ROM, To improve nutrient delivery to tissue, To increase oxygenation perfusion, To improve muscle performance and motor function, To improve ability to perform ADL's TENS: Yes IF ES: Yes Cryotherapy (ice pack, ice massage): Yes For the Purpose of:: To decrease pain, To decrease swelling/inflammation Thank you for the opportunity to evaluate your patient. For Medicare and Medicare HMO plans, please review the plan of care and approve it. It will need to be FAXED BACK to us at [phone] for Medicare purposes. For Medicare only, by signing this I certify the plan of care. Please let me know if there are questions or concerns regarding this plan of care. Physician Signature: Date:
--- NOTE | 2019-11-27 10:17 | HP.PT.NRP ---
PUSHPA ORELLANA was seen in my office for initial evaluation on 05/28/19. The following Plan of Care was established for this patient: Initial Frequency: 2x /Week Initial Duration: 4 Weeks Patient/Client Instruction: Educate patient on: Condition, Plan of Care, Risk Factors, Benefits of Fitness Program For the Purpose of:: To facilitate caregiver knowledge, To improve self management, To prevent re-injury, To improve ability to perform tasks related to life management, To improve tolerance to ADL's Therapeutic Exercise to Include: Strength training, Body mechanics, Postural training, Flexibilty training, In an aquatic setting, Passive ROM, Active ROM, Dynamic Lumbar Stabilization, Malika Exercises For the Purpose of:: To decrease pain, To increase ROM, To improve nutrient delivery to tissue, To increase oxygenation perfusion, To improve muscle performance and motor function, To improve ability to perform ADL's TENS: Yes IF ES: Yes Cryotherapy (ice pack, ice massage): Yes For the Purpose of:: To decrease pain, To decrease swelling/inflammation This patient was last seen in our office 06/30/19. Pertinent comments regarding their Physical therapy will appear below: Pt. was seen for her hip and leg pain in PT. Pt. was slowly progressing, but has not been seen in several months. Pt. will be DC from PT at this point in time. At this point I will be discontinuing this patient from physical therapy. I would be happy to see this patient again in the future if found appropriate by the physician. Thank you! Alton Morales DPT
== END 2019-07-09 19:00 | disposition home or self-care (01) ==
LOC: PT 16:30
PROVIDERS: Referring Provider Family Medicine; Visit Provider Family Medicine
DX: M16.0 Bilateral primary osteoarthritis of hip (principal); M47.9 Spondylosis, unspecified
CPT/HCPCS: 97014; 97110; 97161; G0283

== ENCOUNTER 2020-02-29 13:03 | Emergency (ER) | payer MEDICARE, MEDICAID, SELFPAY ==
[2020-02-29 13:04] VITALS: BP 160/82; PULSE 93; RESP 16; TEMP 36.4; O2SAT 98; BMI 52.4
[2020-02-29 13:25] VITALS: BMI 52.4
--- NOTE | 2020-02-29 13:32 | EKG12_ITS ---
Test Reason : NEURO Blood Pressure : / mmHG Vent. Rate : 079 BPM Atrial Rate : 079 BPM P-R Int : 152 ms QRS Dur : 076 ms QT Int : 382 ms P-R-T Axes : 062 076 075 degrees QTc Int : 438 ms Normal sinus rhythm Low voltage QRS Septal infarct , age undetermined Abnormal ECG Confirmed by NETO BENZ, KRISSY ([id number]), publications editor HARSHA MARX ([id number]) on 03/01/2020 2:03:19 PM Referred By: BB Confirmed By:KRISSY DUQUE MD
--- NOTE | 2020-02-29 13:32 | RAD_ITS ---
STUDY: X-RAY CHEST REASON FOR EXAM: Female, 44 years old. SAUL CP, LEFT SIDE NUMBNESS SINCE LAST NIGHT TECHNIQUE: AP COMPARISON: None. FINDINGS: Slight elevation of the right hemidiaphragm. No airspace consolidation. There is no demonstrated pleural abnormality. Normal size heart. Normal mediastinum and josh. Normal visualized pulmonary arteries. There is atherosclerotic tortuosity of the aortic arch and descending thoracic aorta. Normal visualized thoracic spine. Normal visualized ribs, clavicles, and shoulders. There is no demonstrated abnormality of the visualized soft tissue structures of the upper abdomen. RAD/Chest 1 View IMPRESSION: Nonacute portable x-ray examination of the chest. Electronically Signed: Emil Soto MD ([place]) at 14:30 EST , Service support ,
--- NOTE | 2020-02-29 13:33 | CT_ITS ---
STUDY: CTA HEAD AND NECK WITH CONTRAST REASON FOR EXAM: Female, 44 years old. LEFT SIDE NUMBNESS RADIATION DOSAGE (If Supplied By Facility): CTDIvol = ( 28.77 ) mGy, DLP = ( 1590.98 ) mGycm TECHNIQUE: Noncontrasted head CT initially performed. CT angiography was performed with a multi-detector CT scanner. Data acquisition was obtained from the skull base through the vertex following intravenous administration of IV 100mL Isovue-370. MIP images were reconstructed from the axial data set. Post-processing of the angiographic images was performed, with multiplanar reformation and 3D reconstruction. Degree of stenosis (when present) measured utilizing NASCET criteria. Individualized dose optimization techniques were used for this CT. COMPARISON: No relevant priors. FINDINGS: Normal bilateral petrous carotid arteries. Normal right cavernous carotid artery with a normal supraclinoid bifurcation. Normal left cavernous carotid artery with a normal supraclinoid bifurcation. Normal right A1 segments of the anterior cerebral artery. Normal left A1 segments of the anterior cerebral artery. Normal intact anterior communicating artery (ACOM). Normal bilateral A2 segments of the anterior cerebral arteries. Normal right M1 and M2 segments of the middle cerebral arteries, with a normal M1 bifurcation. Normal left M1 and M2 segments of the middle cerebral arteries, with a normal M1 bifurcation. There is a persistent (possibly partial) origin of the right posterior cerebral artery with absence of the posterior communicating artery (PCOM). There is a persistent origin of the left posterior cerebral artery with absence of the posterior communicating artery (PCOM). There is a small atretic right vertebral artery with a dominant left vertebral artery. Normal basilar artery with a normal basilar bifurcation. The visualized bilateral superior cerebellar (SCA) arteries are normal. Normal bilateral P1, P2 and visualized P3 segments of the posterior cerebral arteries. There is no demonstrated aneurysm of the [place]. AORTIC ARCH: Normal visualized aortic arch. Normal origins of the brachiocephalic, left common carotid, and left subclavian arteries. RIGHT CAROTID ARTERIES: Normal right common carotid artery (CCA). Normal right common carotid bulb. Normal origin of the right internal carotid (ICA) artery without a hemodynamically significant stenosis. Normal visualized cervical portion of the right internal carotid artery. Normal origin of the right external carotid artery (ECA). LEFT CAROTID ARTERIES: Normal left common carotid artery (CCA). Normal left common carotid bulb. Normal origin of the left internal carotid (ICA) artery without a hemodynamically significant stenosis. Normal visualized cervical portion of the left internal carotid artery. Normal origin of the left external carotid artery (ECA). VERTEBRAL ARTERIES: Normal bilateral vertebral arteries. The ventricular system is normal for age. No masses, mass effects or shift of the midline structures. No acute intracranial hemorrhage, obvious infarction or abnormal collections of extra-axial fluid. There are sebaceous cysts (partially calcified) in the left posterior scalp of doubtful significance. The visualized orbits, mastoid air cells and paranasal sinuses are unremarkable. CT/CTA Head AND Neck W/ Contrast IMPRESSION: 1. No acute intracranial hemorrhage or mass effect. 2. No intracranial aneurysm or large vessel occlusion. 3. Normal CTA carotid arteries without hemodynamically significant stenosis/atherosclerosis or dissection. Electronically Signed: Emil Soto MD ([place]) at 14:42 EST , Service support ,
--- NOTE | 2020-02-29 13:34 | ED.VIS.STROK ---
History of Present Illness Chief Complaint: Neuro S/Sx Informant: Patient Onset: Yesterday Context: Sudden Onset - while at rest Quality and Location: Left Arm Parasthesia, Left Leg Parasthesia, Left Arm Weakness, Difficulty with Ambulation - transiently around time of onset. Negative for: Left Facial Droop, Left Face Parasthesia, Slurred Speech Current Severity: Moderate Maximum Severity: Severe Worsened by: nothing Relieved by: nothing Associated Symptoms: Headache - mild, waxes/wanes, Chest Pain. Negative for: Nausea, Vomiting Narrative: Numbness in left upper extremity and left lower extremity that started last night, along with chest pain radiating into the left upper extremity. Chest pain is no longer present, but was for quite a while. Patient provides very vague answers to many questions and cannot give a straight yes or no answer, such as if she has had a headache recently or now. She thinks she may have a slight headache right now but it is not bad. She states she went to bed thinking that this was nothing and woke up with persistent symptoms so she presented to the hospital after getting some things done. No history of stroke. She is not a diabetic. She denies any recent illness or injury. She has chronic pain in her low back that is unchanged. She denies any bowel or bladder dysfunction, incontinence. - Past Medical History (1) Generalized anxiety disorder Status: Chronic (2) Bilateral lower extremity edema Status: Chronic (3) Current use of roasterman anticoagulation Status: Chronic (4) History of pulmonary embolism Status: Chronic (5) Irritable bowel syndrome (IBS) Status: Chronic (6) Metabolic syndrome Status: Chronic (7) JOSEPH (obstructive sleep apnea) Status: Chronic (8) Deep vein thrombosis of right lower limb Status: Ruled-out Past Medical History - Allergies and Home Meds Allergies/Adverse Reactions: Allergies amoxicillin Allergy (Verified 02/29/20 13:09) Nausea/Vom/Diarrhea cephalexin Allergy (Verified 02/29/20 13:09) Nausea/Vom/Diarrhea naproxen Allergy (Verified 02/29/20 13:09) Nausea/Vom/Diarrhea sulfamethoxazole [From Bactrim] Allergy (Verified 02/29/20 13:09) Nausea/Vom/Diarrhea trimethoprim [From Bactrim] Allergy (Verified 02/29/20 13:09) Nausea/Vom/Diarrhea Primary Care Physician: Marcela Sargent MD [NON-STAFF] - 3-5 Days Surgical History: - - The patient has undergone 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 She is also undergone several surgeries for anal fistula. Smoking Status: Never smoker - Family History Maternal Family History: Reports: No pertinent history Paternal Family History: Reports: No pertinent history Review of Systems General: Denies: Chills, Fever, Sweats Eyes: Denies: Visual changes - bilaterally, Diplopia ENT: Denies: Bilateral ear pain, Rhinorrhea, Sore throat Cardiovascular: Reports: Chest pain. Denies: Palpitations Respiratory: Denies: Dyspnea, Cough, Dyspnea on exertion Gastrointestinal: Denies: Abdominal pain, Nausea, Vomiting, Diarrhea, Melena, Hematochezia Genitourinary: Denies: Dysuria, Hematuria, Frequency Musculoskeletal: Reports: Back pain, Swelling, Extremity Pain. Denies: Myalgias, Neck pain Skin: Denies: Rash, Wounds Neurological: Reports: Headache, Weakness, Parasthesia STROKE Vital Signs/Narrative: Vital Signs Temp Pulse Resp BP Pulse Ox 02/29/20 13:04 97.6 F L 93 16 160/82 H 98 Inital Vital Signs reviewed: Yes - NIHSS Initial 1a Level of Consciousness: 0 1b LOC Questions (Score 2 if aphasic/stupor): 0 1c LOC Commands (Only score 1st attempt): 0 2 Best Gaze (If aphasic, use reflexive mvmts.): 0 3 Visual: 0 4 Facial Palsy: 0 5 Motor Arm Right (UN = amputation/fusion): 0 6 Motor Leg Right: 0 6 Motor Leg Left: 0 7 Limb ataxia (Only + if out of proportion): 0 8 Sensory (Aphasia/stupor=0 or 1, coma=2): 1 9 Best Language: 0 10 Dysarthria (mute, coma=2, intubated=UN): 0 11 Extinction and Inattention (only scored if +): 0 Total Score: 1 General: Well nourished, Well developed, Obese, - - Well-appearing, no distress. Conversive in full sentences. Head: Normocephalic, Atraumatic Eyes: Perrl, EOMI ENT: Moist mucous membranes, No rhinorrhea Neck: Supple, Nontender Cardiovascular: Regular rate, Regular rhythm, No murmurs Respiratory: No distress, CTA bilaterally, Chest nontender Abdomen: Soft, Nontender, Nondistended, Normal bowel sounds Back: Nontender, Normal Inspection Extremities: Nontender, Edema - Chronic both lower extremities, worse on the right with signs of stasis dermatitis, no tenderness. Negative for: Calf Tenderness Skin: Normal color, No rash Neurological: Alert, Oriented x3, Cranial nerves II-XII grossly intact, Normal Strength, Parasthesia - Left arm and leg. Sensation grossly intact. Psychological: Normal affect, Normal Mood Diagnostic/Tx/Re-eval Impressions Chest X-Ray 02/29/20 13:32 IMPRESSION: Nonacute portable x-ray examination of the chest. Electronically Signed: Emil Soto MD ([place]) at 14:30 EST , Service support , Head/Neck CTA 02/29/20 13:33 IMPRESSION: 1. No acute intracranial hemorrhage or mass effect. 2. No intracranial aneurysm or large vessel occlusion. 3. Normal CTA carotid arteries without hemodynamically significant stenosis/atherosclerosis or dissection. Electronically Signed: Emil Soto MD ([place]) at 14:42 EST , Service support , 02/29/20 13:32 Chest 1 View [RAD] Stat 02/29/20 13:33 CTA Head AND Neck W/ Contrast [CT] Stat Laboratory Results 02/29/20 02/29/20 02/29/20 13:49 13:50 13:50 WBC 5.1 RBC 3.76 L Hgb 11.7 L Hct 36.8 L MCV 97.9 MCH 31.1 MCHC 31.8 L RDW Std Deviation 49.6 H RDW Coeff of Julissa 13.8 Plt Count 146 L MPV 11.0 Immature Gran % (Auto) 0.400 Neut % (Auto) 78.4 H Lymph % (Auto) 13.0 L [place] % (Auto) 7.2 Eos % (Auto) 0.6 Baso % (Auto) 0.4 Absolute Neuts (auto) 4.0 Absolute Lymphs (auto) 0.67 L Nucleated RBC % 0 PT 23.8 H INR 2.2 APTT 38.3 H Sodium Potassium Chloride Carbon Dioxide Anion Gap BUN Creatinine Estim Creat Clear Calc Est GFR (MDRD) Af Amer Est GFR (MDRD) Non-Af BUN/Creatinine Ratio Glucose Calcium Troponin I POC Glucose 84 02/29/20 13:50 WBC RBC Hgb Hct MCV MCH MCHC RDW Std Deviation RDW Coeff of Julissa Plt Count MPV Immature Gran % (Auto) Neut % (Auto) Lymph % (Auto) [place] % (Auto) Eos % (Auto) Baso % (Auto) Absolute Neuts (auto) Absolute Lymphs (auto) Nucleated RBC % PT INR APTT Sodium 144 Potassium 3.9 Chloride 110 H Carbon Dioxide 29.0 Anion Gap 5 BUN 22 H Creatinine 0.88 Estim Creat Clear Calc 80.16 Est GFR (MDRD) Af Amer 90 Est GFR (MDRD) Non-Af 74 BUN/Creatinine Ratio 24.9 H Glucose 89 Calcium 9.0 Troponin I < 0.015 POC Glucose - Rhythm Strip Rhythm Strip: Sinus Rhythm Rate: 79 Ectopy: None - EKG Initial EKG Interpretation: Sinus Rhythm, No Acute Injury Pattern Prior: No Prior - Medical Decision Making Differential diagnosis in this patient includes electrolyte abnormalities, stroke, B12 deficiency/anemia, migraine with neurologic symptoms, referred discomfort from the spine or chest including esophagus, cardiac pathology. She has no neck pain to suggest a cervical disc causing the symptoms in her left arm and left leg. She has no changes in her chronic low back pain, and she has negative straight leg raises suggesting this is not sciatica, in addition to the lack of pain in her left lower extremity. CT angiography of the head and neck, including the aortic arch was performed and shows no evidence of dissection, LVO, or infarct. I think the chances of her having an actual stroke here are very low, and although that may be missed by CT since we do not have stat MRI available at this time, I think that is less likely. Her cardiac work-up is normal/negative. She is given a GI cocktail as well as Reglan, as well as prescriptions at discharge for a 2-week course of a PPI and Reglan to use as needed. ED Disposition - Plan for ED Patient: Disposition: Home or Assisted Living Diagnosis: Chest pain, unspecified, Paresthesias with subjective weakness Instructions: ED Chest Pain Atypical Unkn Cause, ED Paraesthesias Prescriptions: Omeprazole 1 cap PO DAILY #14 capsule.dr Prescription Printed Metoclopramide [Reglan] 10 mg PO Q6H PRN #10 tab PRN Reason: Headache or nausea Prescription Printed Referrals: Marcela Sargent MD [NON-STAFF] - 3-5 Days
[2020-02-29 13:55] LABS: Bedside Glucose 84 mg/dL (70-110)
[2020-02-29 13:56] LABS: Absolute Lymphocyte Count 0.67 X10^3/uL (0.83-4.51); Basophil# 0.02 X10^3/uL; Basophil% 0.4 % (0-1); Eosinophil# 0.03 X10^3/uL; Eosinophils% 0.6 % (0-5); Hematocrit 36.8 % (37-47); Hemoglobin 11.7 g/dL (12.0-15.0); Lymphocyte # 0.67 X10^3/ul (4.0); Mean Corp Hgb Conc 31.8 g/dL (32-36); Mean Corpuscular Hgb 31.1 pg (27.0-32.0); Mean Corpuscular Volume 97.9 fL (81-99); Monocyte# 0.37 X10^3/uL; Monocyte% 7.2 % (0-10); NRBC Flagged by Analyzer 0 % (0-5); Neutrophil # 4.03 X10^3/uL (2.7-7.7); Neutrophil % 78.4 % (47-70); Platelet Count 146 K/mm3 (150-450); RBC Distribution Width CV 13.8 % (11.6-14.6); RBC Distribution Width SD 49.6 fl (35.1-43.9); Red Blood Count 3.76 M/mm3 (4.2-5.4); White Blood Count 5.1 K/mm3 (4.4-11.0)
[2020-02-29] MEDS: 0.9% Normal Saline 1,000 ML 100 ML IV (14:03)
[2020-02-29 14:05] LABS: International Normalized Ratio 2.2; Prothrombin Time (Protime)PT. 23.8 SECONDS (11.7-14.9)
[2020-02-29 14:06] LABS: Partial Thromboplast Time 38.3 Seconds (24.1-36.2)
--- NOTE | 2020-02-29 14:06 | NURSING ---
NO OLD EKGS
[2020-02-29 14:15] LABS: Anion Gap 5 (5-15); BUN 22 mg/dL (7-18); BUN/Creat Ratio 24.9 RATIO (10-20); Chloride 110 mmol/L (98-107); Creatinine, Serum 0.88 mg/dL (0.55-1.02); EST Glomerular Filtration Rate 74 mL/min (>60); Est Glom Filt Rate - Afr Amer 90 mL/min (>60); Estimated Creatinine Clearance 80.16 ml/min; Glucose 89 mg/dL (74-106); Potassium 3.9 mmol/L (3.5-5.1); Sodium Level 144 mmol/L (136-145)
[2020-02-29] MEDS: Metoclopramide 10 MG/2 ML Vial 5 MG IV (15:43)
[2020-02-29] MEDS: Mag Hydrox/Al Hydrox/Simeth 30 ML UDC PO (15:43)
[2020-02-29 15:44] VITALS: BP 150/63; PULSE 81; RESP 20
[2020-02-29 16:01] VITALS: BP 120/78; PULSE 73; RESP 19; O2SAT 96
== END 2020-02-29 16:07 | disposition home or self-care (01) ==
PROVIDERS: Emergency Provider Emergency Medicine; PCP Family Medicine
DX: R07.9 Chest pain, unspecified (principal); R20.2 Paresthesia of skin; R53.1 Weakness; R51.9 Headache, unspecified; R60.0 Localized edema; M54.5 Low back pain; G89.29 Other chronic pain; E88.81 Metabolic syndrome and other insulin resistance; K58.9 Irritable bowel syndrome, unspecified; G47.33 Obstructive sleep apnea (adult) (pediatric); F41.1 Generalized anxiety disorder; Z79.01 Long term (current) use of anticoagulants; Z79.899 Other long term (current) drug therapy; Z86.711 Personal history of pulmonary embolism
CPT/HCPCS: 70496; 70498; 71045; 80048; 82962; 84484; 85025; 85610; 85730; 93005; 96361; 96374; 99285; J7030; Q9967; A4216

== ENCOUNTER → 2020-03-12 11:47 | Outpatient (CLI) | payer MEDICARE, MEDICAID, SELFPAY ==
[2020-02-29 13:25] VITALS: BMI 52.4
[2020-03-12 13:48] LABS: ALB/GLOB Ratio 0.9 RATIO (0.9-2.4); AST(SGOT) 12 U/L (15-37); Alanine Aminotransfer ALT/SGPT 33 U/L (13-56); Albumin, Serum 3.5 g/dL (3.2-5.0); Alkaline Phosphatase 92 U/L (45-117); Anion Gap 2 (5-15); BUN 17 mg/dL (7-18); BUN/Creat Ratio 17.6 RATIO (10-20); Calcium,Total 9.4 mg/dL (8.5-10.1); Chloride 108 mmol/L (98-107); Cholesterol 118 mg/dL (200); Creatinine, Serum 0.96 mg/dL (0.55-1.02); EST Glomerular Filtration Rate 67 mL/min (>60); Est Glom Filt Rate - Afr Amer 81 mL/min (>60); Globulin 4.1 g/dL (2.2-4.2); Glucose 81 mg/dL (74-106); High Density Lipoprotein 50 mg/dL; Potassium 4.4 mmol/L (3.5-5.1); Protein, Total 7.6 g/dL (6.4-8.2); Sodium Level 141 mmol/L (136-145); Triglycerides 103 mg/dL; Very Low Density Lipoprotein 21 mg/dL (5-40)
== END ==
PROVIDERS: PCP Family Medicine; Referring Provider Family Medicine; Visit Provider Family Medicine
DX: E66.01 Morbid (severe) obesity due to excess calories (principal)
CPT/HCPCS: 36415; 80053; 80061

== ENCOUNTER 2020-04-22 12:49 | Emergency (ER) | payer MEDICARE, MEDICAID, SELFPAY ==
[2020-04-22 12:49] VITALS: BP 140/64; PULSE 85; RESP 16; TEMP 36.1; O2SAT 98; BMI 47.1
--- NOTE | 2020-04-22 13:09 | EKG12_ITS ---
Test Reason : Blood Pressure : / mmHG Vent. Rate : 078 BPM Atrial Rate : 078 BPM P-R Int : 144 ms QRS Dur : 074 ms QT Int : 386 ms P-R-T Axes : 063 080 083 degrees QTc Int : 440 ms Sinus rhythm with sinus arrhythmia with occasional Premature ventricular complexes Septal infarct , age undetermined Abnormal ECG Confirmed by NETO BENZ, KRISSY ([id number]), editor school photograph DINO LAND ([id number]) on 04/26/2020 9:03:20 AM Referred By: TIM Confirmed By:KRISSY DUQUE MD
--- NOTE | 2020-04-22 13:10 | ED.DCSUM_ITS ---
History of Present Illness Chief Complaint: Chest Pain Informant: Patient Onset: Yesterday Activity at onset: - - lying supine Timing: Continuous Quality: Pain, Pressure Location: Substernal - radiates into trapezius bilat / upper back a little; no other radiation Current Severity: Moderate Maximum Severity: Moderate Worsened By: Breathing - a little worse. Not Worsened By: Exertion Relieved By: Nothing Associated Symptoms: Negative for: Nausea, Vomiting, Diaphoresis, Dyspnea, Cough, Fever, Lightheadedness, Palpitations Narrative: Sore throat for almost 2 weeks, had a negative Covid test 4 days ago. Minor occasional cough, she does not necessarily feel like she has a cold. She denies any fevers or chills, she admits to having myalgias occasionally but not a major symptom. Chest discomfort since yesterday has been constant, mildly pleuritic, she has history of pulmonary emboli and is on Coumadin for that. Her last PT/INR was several weeks ago and it was low, she did not have her medication adjusted. She denies any new leg pain/symptoms, but has chronic edema both lower extremities that is unchanged. She denies any COVID-19 exposure that she knows of. She has not had it. She denies any new GI symptoms. No headaches. - Past Medical History (1) Bilateral lower extremity edema Status: Chronic (2) History of pulmonary embolism Status: Chronic (3) Irritable bowel syndrome (IBS) Status: Chronic (4) Metabolic syndrome Status: Chronic (5) Morbid obesity Status: Chronic (6) Normochromic normocytic anemia Status: Chronic (7) JOSEPH (obstructive sleep apnea) Status: Chronic (8) Peripheral arterial disease Status: Chronic (9) Deep vein thrombosis of right lower limb Status: Ruled-out Past Medical History - Allergies and Home Meds Allergies/Adverse Reactions: Allergies amoxicillin Allergy (Verified 04/22/20 13:33) Nausea/Vom/Diarrhea cephalexin Allergy (Verified 04/22/20 13:33) Nausea/Vom/Diarrhea naproxen Allergy (Verified 04/22/20 13:33) Nausea/Vom/Diarrhea sulfamethoxazole [From Bactrim] Allergy (Verified 04/22/20 13:33) Nausea/Vom/Diarrhea trimethoprim [From Bactrim] Allergy (Verified 04/22/20 13:33) Nausea/Vom/Diarrhea Primary Care Physician: Joseph Sargent MD [Primary Care Provider] - Surgical History: - - The patient has undergone 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 She is also undergone several surgeries for anal fistula. Smoking Status: Never smoker - Family History Maternal Family History: Reports: No pertinent history Paternal Family History: Reports: No pertinent history Review of Systems General: Reports: Malaise. Denies: Chills, Fever, Sweats Eyes: Denies: Visual changes - bilaterally, Diplopia ENT: Reports: Sore throat - Mild with mild odynophagia. Denies: Bilateral ear pain, Rhinorrhea Cardiovascular: Reports: Chest pain. Denies: Palpitations Respiratory: Reports: Cough. Denies: Dyspnea, Dyspnea on exertion, Orthopnea Gastrointestinal: Denies: Abdominal pain, Nausea, Vomiting, Diarrhea, Melena, Hematochezia Genitourinary: Denies: Dysuria, Hematuria, Frequency Musculoskeletal: Reports: Myalgias, Swelling. Denies: Back pain, Extremity Pain Skin: Denies: Rash, Wounds Neurological: Denies: Headache, Weakness, Numbness Physical Exam Vital Signs/Narrative: Vital Signs Temp Pulse Resp BP Pulse Ox 04/22/20 12:49 97.0 F L 85 16 140/64 H 98 Inital Vital Signs reviewed: Yes General: Well nourished, Well developed, Obese, No Acute Distress - Well- appearing no distress, conversive in full sentences Head: Normocephalic, Atraumatic Eyes: Perrl, EOMI ENT: Moist mucous membranes, No rhinorrhea Neck: Supple, Nontender, No lymphadenopathy Cardiovascular: Regular rate, Regular rhythm, No murmurs Respiratory: No distress, CTA bilaterally, Chest nontender, - - No splinting on deep inspiration Abdomen: Soft, Nondistended, Normal bowel sounds, Tender - Epigastric only. Negative for: Guarding, Rebound tenderness, Pulsatile mass Back: Nontender, Normal Inspection. Negative for: CVA tenderness Extremities: Nontender, Edema - Bilateral lower extremities, symmetric, with signs of chronic stasis dermatitis. Skin: Normal color, No rash, No Trauma Neurological: Alert, Oriented x3, Cranial nerves II-XII grossly intact, Normal Strength, Normal Sensation Psychological: Normal affect, Normal Mood Diagnostic/Tx/Re-eval Chest X-Ray - ED: 1 View, Read by ED Physician, Normal, Heart, Lungs, Mediastinum, Bony Structures, No Acute Disease Impressions Chest X-Ray 04/22/20 14:05 IMPRESSION: No active disease. Electronically Signed: Rakan Recio MD at 14:21 EST Tel , Service support , 04/22/20 14:05 Chest 1 View (Portable) [RAD] Stat Laboratory Results 04/22/20 04/22/20 04/22/20 13:59 13:59 13:59 WBC 6.5 RBC 4.18 L Hgb 13.1 Hct 39.7 MCV 95.0 MCH 31.3 MCHC 33.0 RDW Std Deviation 45.1 H RDW Coeff of Julissa 12.9 Plt Count 151 MPV 10.5 Immature Gran % (Auto) 0.300 Neut % (Auto) 76.0 H Lymph % (Auto) 15.2 L [place] % (Auto) 7.4 Eos % (Auto) 0.8 Baso % (Auto) 0.3 Absolute Neuts (auto) 4.9 Absolute Lymphs (auto) 0.98 Nucleated RBC % 0 PT 20.5 H INR 1.8 Sodium 138 Potassium 3.7 Chloride 105 Carbon Dioxide 27.0 Anion Gap 6 BUN 22 H Creatinine 1.01 Estim Creat Clear Calc 69.84 Est GFR (MDRD) Af Amer 77 Est GFR (MDRD) Non-Af 63 BUN/Creatinine Ratio 21.8 H Glucose 86 Calcium 9.4 Troponin I < 0.015 - Rhythm Strip Rhythm Strip: Sinus Rhythm Rate: 78 Ectopy: PVC(s) - EKG Initial EKG Interpretation: Sinus Rhythm, No Acute Injury Pattern, - - Q waves V1-2; PVC; otherwise nml EKG Prior: Unchanged Treatment: GI Cocktail Repeat Eval: Pain Free MALOU Risk: No Positive MALOU Elements Score: 0 - Medical Decision Making Patient was given a GI cocktail and she feels much better and her chest discomfort is about gone. Her work-up is negative. I do not think this is a pulmonary embolism especially since most of her symptoms are gone after GI cocktail, and her INR is just barely less than therapeutic at 1.8. I discussed all this with her and the possibility that all of this is esophageal in etiology. In discussing this, she discussed her prior visit, during which she saw myself it was about 7 weeks ago, she was having left upper extremity discomfort and chest pain that had gone away. I had prescribed her a PPI discussing the possibility of esophageal disorders that may or may not be acid related, she filled the prescription and her doctor told her not to take it. I reassured her that this medication will unlikely cause her any harm, and should not interact with her warfarin. She is amenable to trying it again. I wrote her another prescription, and advised that she take an extra dose of warfarin, she states she has a follow-up appointment scheduled after the weekend with her doctor which she should keep. ED Disposition - Plan for ED Patient: Disposition: Home or Assisted Living Diagnosis: Chest pain, unspecified, Warfarin-induced coagulopathy Instructions: ED Chest Pain, Noncardiac Prescriptions: Omeprazole 1 cap PO DAILY #14 capsule.dr Prescription Printed Referrals: Joseph Sargent MD [Primary Care Provider] - Keep Charley appointment Additional Instructions: -If you cannot or do not want to fill the prescription, you may alternatively take famotidine 40 mg twice daily for 2 weeks. -Make sure and double your dose of warfarin tonight, take 8 mg instead of 4 mg. Today your INR was 1.8, just shy of 2-3.
[2020-04-22] MEDS: Mag Hydrox/Al Hydrox/Simeth 30 ML UDC PO (13:24)
[2020-04-22 13:27] VITALS: BP 140/64; PULSE 85; RESP 16; TEMP 36.1; O2SAT 98
--- NOTE | 2020-04-22 14:05 | RAD_ITS ---
STUDY: X-RAY CHEST REASON FOR EXAM: Female, 44 years old. chest pressure, sore throat TECHNIQUE: Single AP portable view of the chest. COMPARISON: 02/29/2020 FINDINGS: The lungs are clear and expanded. Elevated right hemidiaphragm which is unchanged. Normal size heart. Normal mediastinum and josh. Normal visualized pulmonary arteries. Normal visualized aortic arch and descending thoracic aorta. Normal visualized thoracic spine. Normal visualized ribs, clavicles, and shoulders. There is no demonstrated abnormality of the visualized soft tissue structures of the upper abdomen. RAD/Chest 1 View (Portable) IMPRESSION: No active disease. Electronically Signed: Rakan Recio MD at 14:21 EST Tel , Service support ,
[2020-04-22 14:07] LABS: Absolute Lymphocyte Count 0.98 X10^3/uL (0.83-4.51); Absolute Neutrophil Count 4.9 X10^3/uL (2.0-7.7); Basophil# 0.02 X10^3/uL; Basophil% 0.3 % (0-1); Eosinophil# 0.05 X10^3/uL; Eosinophils% 0.8 % (0-5); Hematocrit 39.7 % (37-47); Hemoglobin 13.1 g/dL (12.0-15.0); Lymphocyte # 0.98 X10^3/ul (4.0); Lymphocyte % 15.2 % (19-41); Mean Corpuscular Hgb 31.3 pg (27.0-32.0); Mean Platelet Vol. 10.5 fl (6.2-12.0); Monocyte# 0.48 X10^3/uL; Monocyte% 7.4 % (0-10); NRBC Flagged by Analyzer 0 % (0-5); Platelet Count 151 K/mm3 (150-450); RBC Distribution Width CV 12.9 % (11.6-14.6); RBC Distribution Width SD 45.1 fl (35.1-43.9); Red Blood Count 4.18 M/mm3 (4.2-5.4); White Blood Count 6.5 K/mm3 (4.4-11.0)
[2020-04-22 14:16] LABS: International Normalized Ratio 1.8; Prothrombin Time (Protime)PT. 20.5 SECONDS (11.7-14.9)
[2020-04-22 14:17] VITALS: BP 113/78; PULSE 64; RESP 12; O2SAT 98
[2020-04-22 14:32] LABS: Anion Gap 6 (5-15); BUN 22 mg/dL (7-18); BUN/Creat Ratio 21.8 RATIO (10-20); Calcium,Total 9.4 mg/dL (8.5-10.1); Chloride 105 mmol/L (98-107); Creatinine, Serum 1.01 mg/dL (0.55-1.02); EST Glomerular Filtration Rate 63 mL/min (>60); Est Glom Filt Rate - Afr Amer 77 mL/min (>60); Estimated Creatinine Clearance 69.84 ml/min; Glucose 86 mg/dL (74-106); Potassium 3.7 mmol/L (3.5-5.1); Sodium Level 138 mmol/L (136-145)
[2020-04-22 14:54] VITALS: BP 112/78; PULSE 69; RESP 18; O2SAT 99
[2020-04-22] MEDS: Pantoprazole Sodium 40 MG Tablet PO (14:54)
== END 2020-04-22 14:58 | disposition home or self-care (01) ==
PROVIDERS: Emergency Provider Emergency Medicine; PCP Family Medicine
DX: R07.9 Chest pain, unspecified (principal); R79.1 Abnormal coagulation profile; T45.515A Adverse effect of anticoagulants, initial encounter; J02.9 Acute pharyngitis, unspecified; R05 Cough; R60.0 Localized edema; K58.9 Irritable bowel syndrome, unspecified; E88.81 Metabolic syndrome and other insulin resistance; I73.9 Peripheral vascular disease, unspecified; G47.33 Obstructive sleep apnea (adult) (pediatric); E66.01 Morbid (severe) obesity due to excess calories; Z79.01 Long term (current) use of anticoagulants; Z79.82 Long term (current) use of aspirin; Z79.899 Other long term (current) drug therapy; Z86.718 Personal history of other venous thrombosis and embolism; Z86.711 Personal history of pulmonary embolism
CPT/HCPCS: 36415; 71045; 80048; 84484; 85025; 85610; 93005; 99285; A4216

== ENCOUNTER → 2020-06-21 15:34 | Outpatient (CLI) | payer MEDICARE, MEDICAID, SELFPAY ==
[2020-06-21 17:33] LABS: Erythrocyte Sedimentation Rate 30 mm/hr (0-30)
[2020-06-21 17:34] LABS: Vitamin B12 727 pg/mL (211-911); Vitamin D,25 Hydroxy 69.4 ng/mL
[2020-06-21 17:40] LABS: Free T3 2.1 pg/mL (2.18-3.98); T4 Free Direct 1.04 ng/dL (0.76-1.46); Thyroid Stim Hormone (TSH) 1.63 uIU/mL (0.358-3.74)
[2020-06-23 16:09] LABS: Thyroid Peroxidase AB < 9 IU/mL (0-34)
[2020-06-23 20:58] LABS: ANTINUCLEAR ANTIBODIES DIRECT Negative (Negative); Thyroglobulin Antibody < 1.0 IU/mL (0.0-0.9)
== END ==
PROVIDERS: PCP Family Medicine; Visit Provider Family Medicine
DX: E03.9 Hypothyroidism, unspecified (principal); E55.9 Vitamin D deficiency, unspecified; R53.83 Other fatigue; K52.9 Noninfective gastroenteritis and colitis, unspecified; E53.8 Deficiency of other specified B group vitamins
CPT/HCPCS: 36415; 82306; 82607; 84439; 84443; 84481; 85652; 86038; 86140; 86225; 86235; 86376; 86800

== ENCOUNTER 2020-09-10 14:00 | Outpatient (RCR) | payer MEDICARE, MEDICAID, SELFPAY ==
--- NOTE | 2020-07-19 14:02 | HP.PTEVAL_ITS ---
Patient's Visit Information PUSHPA ORELLANA is a 45 year old F referred to Physical Therapy by Dr. Karly Bose DO with a diagnosis of DORSALGIA,RIGHT HIP PAIN,LEFT HIP PAIN. Date of Evaluation: 07/19/20 Physical Therapist: Everardo Ball PT, Cert MDT, OCS - Visit Plan Frequency: 2x /Week Duration: 4 Weeks Plan: PT INTERVENTIONS DLS,HIP STRENGTHENING,POSTURAL EX'S ,ROM/FLEXABLITY HIPS/LE,FUNCTIONAL STRENGTHENING - Subjective This 45 y/o femal presents to physical therapy with LBP and hip.Patient has had LBP and hip pain for many years. Seen DR bassett PT. Pain located symmtrical lumbar and hips -lateral. Aggraveting factors bending ,lifting extended walkng and standing. Alleviating factors rest. Denies parathesia/tingling. Bowel/bladder-.Pain affects sleeping. Patient has h/o PT. Patient has had h/o club feet s/p surgery. Patient pain affects QOL and function. Pain described as ache. SOCIAL: single. 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 GAIT: reciprocal pattern antalgic gait lateral sway hip IR, left with foot no DF,with circumduction. PELVIS: assymtries ,right leg longer than left 2 difference. FLEXAILTY: hams mod tight ,piriformis mod tight. PROM HIP : 10 degrees left,,0 degrees right. MMT: quads/hams 4/5,hip flexion 4-/5,hip abd 3+/5 ,ankle left 0/5 ,right 4-/5. LUMBAR ROM: flexion mod loss ,extension mod loss,side glides mod loss - Special Tests L/S Slump test left side: Negative L/S Slump test right side: Negative L/S Left Straight Leg Raise: Negative L/S Right Straight Leg Raise: Negative - Goals Goal 1:: Patient to be I with HEP Goal Time Frame: 4-6 Weeks Goal 2:: Patient to decrease hip and baCk pain by 50 % or > to improve function and GAIT Goal Time Frame: 4-6 Weeks Goal 3:: Patient increase strength of biliteral hip abd 4-/5,hip flexion 4-/5 to improve gait Goal Time Frame: 4-6 Weeks Goal 4:: Patient to improve lumbar ROM for function of recovery Goal Time Frame: 4-6 Weeks Goal 5:: Patient to improve back owestry score by 5 points or > to improve QOL and function. Goal Time Frame: 4-6 Weeks - Rehabilitation Potential Physical Therapy Diagnosis: This patient has symmtrical lumbar pain along with hip pain pain with weakness,poor ROM,impairs gait along with pain as well as assymtries with leg length right longer than left is a contributaing factor and left club foot thus benifit from skilleD PT Rehabilitation Potential: Good - Anticipated Interventions Patient/Client Instruction: Educate patient on: Condition, Plan of Care For the Purpose of:: To decrease pain, To increase ROM, To improve muscle performance and motor function, To increase tolerance to activity/condition/position, To improve ability of physical actions for home/community/work/leisure, To improve health of tissue, To decrease soft tissue restriction, To increase flexibility/ROM, To reduce risk of recurrence, To improve ability to perform tasks related to life management Therapeutic Exercise to Include: Strength training, Postural training, Flexibilty training, Active ROM, Dynamic Lumbar Stabilization For the Purpose of:: To decrease pain, To increase ROM, To improve muscle performance and motor function, To improve ability to perform ADL's, To increase tolerance to activity/condition/position, To improve ability of physical actions for home/community/work/leisure, To improve health of tissue, To decrease soft tissue restriction, To increase flexibility/ROM, To reduce risk of recurrence, To improve ability to perform tasks related to life management TENS: Yes IF ES: Yes Cryotherapy (ice pack, ice massage): Yes Thermo therapy (hot pack): Yes Ultrasound (thermal/non thermal): Yes For the Purpose of:: To decrease pain, To decrease swelling/inflammation, To increase ROM, To improve nutrient delivery to tissue, To increase oxygenation perfusion Thank you for the opportunity to evaluate your patient. For Medicare and Medicare HMO plans, please review the plan of care and approve it. It will need to be FAXED BACK to us at [phone] for Medicare purposes. For Medicare only, by signing this I certify the plan of care. Please let me know if there are questions or concerns regarding this plan of care. Physician Marlin ortega: Date:
--- NOTE | 2020-09-14 14:55 | HP.PTREVAL ---
Dr. Karly Bose, DO, It has been my pleasure to treat PUSHPA ORELLANA over the last 12 visits for DORSALGIA,RIGHT HIP PAIN,LEFT HIP PAIN. Please see the progress note below for an update on the physical therapy plan of care! Subjective: Received order to incorporate water ex's to treatment interventions. Patient seen DR and recommended Aquatic ex's for joint hip and back pain . Location of pain symmetrical low back pain and bilateral hip pain. Aggravating factors walking 10 mins and difficulty lifting .Patient unable to tie right shoe . Denies parathesia/tingling. Pain affects sleeping difficulty sleeping on side. Objective/Function: POSTURE: bilateral left foot rotated knee valgus calcaneal valgus on left with oversupination. GAIT: reciprocal pattern waddle gait pattern calcaneal valgus with IR left foot antalgic wide LILIANA. SYMMTRIES: pelvis asymmetries. MMT: quads/hams 4/5,hip flexion 4-/5,hip abd 3+/5 ,ankle 4/5. LUMBAR ROM: flexion mod/min loss, extension mod loss ,side glides. HIP PROM: flexion IR 0 degrees Plan Plan: RECOMMEND TO DO AQUATIC THERAPY FOR BACK AND HIP PAIN TO MAXIMIZE PATIENT FUNCTION AND GAIT /ADLS'S. PT INTERVENTION AQUATIC THERAPY 2XWEEK FOR 4WEEKS FOR ROM HIPS/BACK,FLEXABLITTY ,BLE STRENGTHENING ,POSTURAL EX'S Goals Goal 1:: Patient to be I with HEP Goal Time Frame: 4-6 Weeks Goal Progress: Goal Met Goal 2:: Patient to decrease hip and baCk pain by 50 % or > to improve function and GAIT Goal Time Frame: 4-6 Weeks Goal Progress: Progressing Goal 3:: Patient increase strength of biliteral hip abd 4-/5,hip flexion 4-/5 to improve gait Goal Time Frame: 4-6 Weeks Goal Progress: Goal Met Goal 4:: Patient to improve lumbar ROM for function of recovery Goal Time Frame: 4-6 Weeks Goal Progress: Progressing Goal 5:: Patient to improve back owestry score by 8 points or > to improve QOL and function.(NEW GOAL) Goal Time Frame: 4-6 Weeks Goal Progress: Progressing Goal 6:: Patient able to stand and walk > then 10 min to improve function.(new goal) Anticipated Interventions Patient/Client Instruction: Educate patient on: Condition, Plan of Care For the Purpose of:: To decrease pain, To increase ROM, To improve muscle performance and motor function, To increase tolerance to activity/condition/position, To improve ability of physical actions for home/community/work/leisure, To improve health of tissue, To decrease soft tissue restriction, To increase flexibility/ROM, To reduce risk of recurrence, To improve ability to perform tasks related to life management Therapeutic Exercise to Include: Strength training, Postural training, Flexibilty training, Active ROM, Dynamic Lumbar Stabilization For the Purpose of:: To decrease pain, To increase ROM, To improve muscle performance and motor function, To improve ability to perform ADL's, To increase tolerance to activity/condition/position, To improve ability of physical actions for home/community/work/leisure, To improve health of tissue, To decrease soft tissue restriction, To increase flexibility/ROM, To reduce risk of recurrence, To improve ability to perform tasks related to life management TENS: Yes IF ES: Yes Cryotherapy (ice pack, ice massage): Yes Thermo therapy (hot pack): Yes Ultrasound (thermal/non thermal): Yes For the Purpose of:: To decrease pain, To decrease swelling/inflammation, To increase ROM, To improve nutrient delivery to tissue, To increase oxygenation perfusion Please do not hesitate to contact me at [phone] by phone or if you have questions or concerns regarding this new plan of care! Sincerely, Everardo Ball, PT, Cert MDT, OCS
--- NOTE | 2021-01-25 08:15 | HP.PTDCNRP_ITS ---
PUSHPA ORELLANA was seen in my office for initial evaluation on 07/19/20. The following Plan of Care was established for this patient: Initial Frequency: 2x /Week Initial Duration: 4 Weeks Patient/Client Instruction: Educate patient on: Condition, Plan of Care For the Purpose of:: To decrease pain, To increase ROM, To improve muscle performance and motor function, To increase tolerance to activity/condition/position, To improve ability of physical actions for home/community/work/leisure, To improve health of tissue, To decrease soft tissue restriction, To increase flexibility/ROM, To reduce risk of recurrence, To improve ability to perform tasks related to life management Therapeutic Exercise to Include: Strength training, Postural training, Flexibilty training, Active ROM, Dynamic Lumbar Stabilization For the Purpose of:: To decrease pain, To increase ROM, To improve muscle performance and motor function, To improve ability to perform ADL's, To increase tolerance to activity/condition/position, To improve ability of physical actions for home/community/work/leisure, To improve health of tissue, To decrease soft tissue restriction, To increase flexibility/ROM, To reduce risk of recurrence, To improve ability to perform tasks related to life management TENS: Yes IF ES: Yes Cryotherapy (ice pack, ice massage): Yes Thermo therapy (hot pack): Yes Ultrasound (thermal/non thermal): Yes For the Purpose of:: To decrease pain, To decrease swelling/inflammation, To inc rease ROM, To improve nutrient delivery to tissue, To increase oxygenation perfusion This patient was last seen in our office . Pertinent comments regarding their Physical therapy will appear below: Patient is d/c to HEP for back and hips At this point I will be discontinuing this patient from physical therapy. I would be happy to see this patient again in the future if found appropriate by the physician. Thank you! Everardo Ball, PT, Cert MDT, OCS Balance/Gait/Functional tests - Balance/Special Test Scores Oswestry Low Back Score: 17
== END 2020-09-10 19:00 | disposition home or self-care (01) ==
LOC: PT 14:00
PROVIDERS: PCP Family Medicine; Referring Provider Family Medicine; Visit Provider Family Medicine
DX: M54.9 Dorsalgia, unspecified (principal); M25.551 Pain in right hip; M25.552 Pain in left hip
CPT/HCPCS: 97110; 97162; 97530

== ENCOUNTER 2020-10-21 17:21 | Emergency (ER) | payer MEDICARE, MEDICAID, SELFPAY ==
[2020-10-21 17:22] VITALS: BP 135/67; PULSE 107; RESP 18; TEMP 37.9; O2SAT 97; BMI 44.9
[2020-10-21 18:44] LABS: Bacteria 0 SEEN /hpf (None Seen); Mucous, Urine 0 SEEN /hpf (<or=2+)
--- NOTE | 2020-10-21 18:47 | EDS_ITS ---
HPI History of Present Illness Chief Complaint: Abd Pain Informant: patient Onset/Context/Timing Onset: Days (4 days) Context: Gradual Onset Current Severity: Moderate Maximum Severity: Moderate Narrative Narrative: Patient presents with a 4-day history of left lower quadrant abdominal pain. She had fever and chills. Mother states she checked the patient's temperature is 101.5 this afternoon. Patient did take aspirin. She does report decreased p.o. intake. She has chronic diarrhea, unchanged from baseline. [facility] Medical History (Updated 10/21/20 @ 23:[address] 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 Irritable bowel syndrome (IBS) Pulmonary embolism Home Medications calcium carbonate-vitamin D3 1 tab PO BID 12/13/17 [History Last Taken 12/09/18 08:00 1 tab] ferrous sulfate 65 mg PO BID 12/13/17 [History Last Taken 12/08/18 08:00 325 mg] loperamide 2 - 4 mg PO Q6H PRN PRN 12/13/17 [History Last Taken 12/08/18 14:00 2 mg] melatonin 3 mg PO QHS 12/13/17 [History Last Taken 12/08/18] warfarin [Jantoven] 5 mg PO WESA 12/13/17 [History Last Taken 12/08/18 22:00] zinc sulfate 220 mg PO QHS 12/13/17 [History Last Taken 12/08/18 22:00] acetaminophen 1,000 mg PO Q6H PRN PRN 12/21/17 [History Last Taken 12/09/18 09:00] ascorbic acid (vitamin C) [Vitamin C] 2,000 mg PO BID 12/21/17 [History Last Taken 12/09/18 08:00 2,000 mg] ergocalciferol (vitamin D2) [Vitamin D2] 50,000 unit PO Q7D 12/21/17 [History Last Taken 12/02/18 08:00 50,000 cap] magnesium oxide 400 mg PO BID 12/21/17 [History Last Taken 12/09/18 09:00] warfarin 4 mg PO SUMOTUTHFR 12/21/17 [History Last Taken 12/07/18] sertraline 108 mg PO DAILY 03/22/19 [History Last Taken Unknown] aspirin 81 mg PO DAILY@0800 04/22/20 [History Last Taken Unknown] omeprazole 1 cap PO DAILY #14 capsule. 04/22/20 [Rx Last Taken Unknown] Allergy/AdvReac Type Severity Reaction Status Date / Time amoxicillin Allergy Nausea/Vom/ Verified 10/21/20 17:25 Diarrhea cephalexin Allergy Nausea/Vom/ Verified 10/21/20 17:25 Diarrhea naproxen Allergy Nausea/Vom/ Verified 10/21/20 17:25 Diarrhea sulfamethoxazole Allergy Nausea/Vom/ Verified 10/21/20 17:25 [From Bactrim] Diarrhea trimethoprim [From Bactrim] Allergy Nausea/Vom/ Verified 10/21/20 17:25 Diarrhea Social History Smoking Status: Never smoker ROS ROS ED Constitutional Constitutional ED: Reports chills and fever(s) Eyes Eyes: Denies change in vision ENT ENT ED: Denies sore throat Cardiovascular Cardiovascular: Denies chest pain Respiratory/Chest Respiratory/Chest: Denies cough or dyspnea Gastrointestinal Gastrointestinal: Reports abdominal pain, diarrhea and nausea; Denies vomiting Genitourinary Genitourinary ED: Denies dysuria Musculoskeletal Musculoskeletal: Denies back pain Integumentary Denies rash Neurologic Neurologic: Denies headache(s) or weakness Psychiatric Psychiatric: Denies anxiety or depression Endocrine Endocrinology: Denies polydipsia or polyuria Allergic/Immunologic Allergic/Immunologic ED: Denies urticaria EXAM Physical Exam Const Vital Signs: 10/21/20 17:22 10/21/20 19:22 10/21/20 21:00 Temperature 100.3 F H 103.2 F H Temperature Source Oral Oral Pulse Rate 107 H 100 100 Respiratory Rate 18 20 H 18 Blood Pressure 135/67 H 128/56 H 127/64 H Blood Pressure Mean 89 80 85 Pulse Ox 97 97 99 Oxygen Delivery Method Room Air Room Air Room Air 10/21/20 22:32 Temperature 100.1 F H Temperature Source Oral Pulse Rate Respiratory Rate Blood Pressure Blood Pressure Mean Pulse Ox Oxygen Delivery Method Positive well nourished and well developed General Appearance ED: well developed HEENT Reports normocephalic and head/scalp atraumatic Eyes PERRL and EOMs intact bilaterally Neck supple Chest Wall inspection of chest normal and palpation of chest normal Resp normal respiratory effort and clear to auscultation bilaterally Cardio regular rate and regular rhythm GI Auscultation: hypoactive bowel sounds Palpation: soft and tender LLQ Extremity Extremity Narrative: Healing superficial wound to the right senior. No sign of infection. Healing ulceration to the distal acid of the left second toe. Neuro oriented x3 and no sensory deficits noted Sensorium / Orientation: alert Motor Exam: strength 5/5 throughout Psych mental status grossly normal MDM MDM MDM Narrative Medical decision making narrative: Blood cultures were ordered. Labs, urinalysis, CT scan obtained. Lab Data Attestation: I reviewed the patient's lab results. Labs: Laboratory Results - last 24 hr 10/21/20 10/21/20 10/21/20 18:10 18:10 18:10 WBC 13.6 H RBC 3.74 L Hgb 10.0 L Hct 32.6 L MCV 87.2 MCH 26.7 L MCHC 30.7 L RDW Std Deviation 50.5 H RDW Coeff of Julissa 15.9 H Plt Count 231 MPV 11.3 Immature Gran % (Auto) 0.400 Neut % (Auto) 87.7 H Lymph % (Auto) 5.6 L [place] % (Auto) 6.1 Eos % (Auto) 0.0 Baso % (Auto) 0.2 Absolute Neuts (auto) 11.9 H Absolute Lymphs (auto) 0.76 L Nucleated RBC % 0 PT INR Sodium 139 Potassium 4.1 Chloride 101 Carbon Dioxide 27.0 Anion Gap 11 BUN 21 H Creatinine 1.02 Estim Creat Clear Calc 68.44 Est GFR (MDRD) Af Amer 76 Est GFR (MDRD) Non-Af 63 BUN/Creatinine Ratio 20.6 H Glucose 93 Lactic Acid Calcium 8.8 Total Bilirubin 0.40 Direct Bilirubin 0.16 AST 21 ALT 45 Alkaline Phosphatase 125 H Total Protein 7.8 Albumin 2.7 L Globulin 5.1 H Serum , Qual NEGATIVE Urine Color Urine Clarity Urine pH Ur Specific [place] Urine Protein Urine Glucose (UA) Urine Ketones Urine Occult Blood Urine Nitrite Urine Bilirubin Urine Urobilinogen Ur Leukocyte Esterase Urine RBC Urine WBC Ur Squamous Epith Cells Urine Bacteria Urine Mucus 10/21/20 10/21/20 10/21/20 18:30 19:50 19:50 WBC RBC Hgb Hct MCV MCH MCHC RDW Std Deviation RDW Coeff of [place] Plt Count MPV Immature Gran % (Auto) Neut % (Auto) Lymph % (Auto) [place] % (Auto) Eos % (Auto) Baso % (Auto) Absolute Neuts (auto) Absolute Lymphs (auto) Nucleated RBC % PT 24.6 H INR 2.3 Sodium Potassium Chloride Carbon Dioxide Anion Gap BUN Creatinine Estim Creat Clear Calc Est GFR (MDRD) Af Amer Est GFR (MDRD) Non-Af BUN/Creatinine Ratio Glucose Lactic Acid 1.4 Calcium Total Bilirubin Direct Bilirubin AST ALT Alkaline Phosphatase Total Protein Albumin Globulin Serum , Qual Urine Color Yellow Urine Clarity Sl. Cloudy Urine pH 5.0 Ur Specific [place] 1.020 Urine Protein 500 H Urine Glucose (UA) Normal Urine Ketones 5 H Urine Occult Blood 50 H Urine Nitrite Negative Urine Bilirubin Negative Urine Urobilinogen Normal Ur Leukocyte Esterase 25 H Urine RBC 0-5 SEEN Urine WBC 0-5 SEEN Ur Squamous Epith Cells 5-10 SEEN Urine Bacteria 0 SEEN Urine Mucus 0 SEEN Radiography Diagnostic Testing: Radiology Impression Abdomen/Pelvis CT 10/21/20 20:28 IMPRESSION: Large well-developed pericolonic/peridiverticular abscess associated with the mid and distal descending colon measuring 10 x 9 x 13 cm with surrounding inflammatory changes and containing fluid and air. Negative for obstruction. Negative for a general perforation into the peritoneal space. No additional acute abdominal or pelvic findings. Unremarkable liver, spleen and pancreas with a nondistended gallbladder. Stable minimal nodule in the left adrenal gland. 2 mm nonobstructing stone in the lower pole of the right kidney. Unremarkable urinary bladder. Negative for pelvic mass or free fluid in the pelvis. Appendicolith in the tip of the appendix with no evidence of inflammation of the appendix. Electronically Signed: Marlene Hagen MD at 21:05 EDT , Service support , ADDENDUM: 10/21/202117 IMPRESSION: Large well-developed pericolonic/peridiverticular abscess associated with the mid and distal descending colon measuring 10 x 9 x 13 cm with surrounding inflammatory changes and containing fluid and air. Negative for obstruction. Negative for a general perforation into the peritoneal space. No additional acute abdominal or pelvic findings. Unremarkable liver, spleen and pancreas with a nondistended gallbladder. Stable minimal nodule in the left adrenal gland. 2 mm nonobstructing stone in the lower pole of the right kidney. Unremarkable urinary bladder. Negative for pelvic mass or free fluid in the pelvis. Appendicolith in the tip of the appendix with no evidence of inflammation of the appendix. N.B. : The above Results were Read Back by Marlene Hagen MD to Dr. Saritha Butler MD, and understanding confirmed on 10/21/2020 21:11:03 (ET). Electronically Signed: Marlene Hagen MD at 21:05 EDT , Service support , Treatment and Re-Evaluation Comments:: Blood work does reveal elevated white count with left shift. Lactic acid is normal at 1.4. Urinalysis shows no sign of infection. CT scan reveals large left lower quadrant abscess, likely diverticular in origin. No evidence of perforation. Patient's temperature did increase to 103. She is given Tylenol. I spoke with Dr. Rizo, on-call for surgery. She evaluated the images. With the patient's body habitus, Coumadin use, and size and location of the abscess she feels this would be best served with IR placing a drain. Patient was ultimately accepted at [facility] will be transferred there for further treatment. She received Cipro and Flagyl. Discharge Plan Triage Chief Complaint: Abd Pain ED Provider: Saritha Butler Dx/Rx/DC Orders Clinical Impression: Colonic diverticular abscess Prescriptions: No Action warfarin [Jantoven] 5 MG tablet 5 mg PO WESA RF: 0 melatonin 3 MG tablet 3 mg PO QHS RF: 0 zinc sulfate 220 MG capsule 220 mg PO QHS RF: 0 calcium carbonate-vitamin D3 1 EACH capsule 1 tab PO BID RF: 0 loperamide 2 MG capsule 2 - 4 mg PO Q6H PRN PRN (Reason: Diarrhea) RF: 0 ferrous sulfate 325 MG tablet 65 mg PO BID RF: 0 ergocalciferol (vitamin D2) [Vitamin D2] 50,000 UNIT capsule 50,000 unit PO Q7D RF: 0 ascorbic acid (vitamin C) [Vitamin C] 1,000 MG tablet 2,000 mg PO BID RF: 0 magnesium oxide 400 MG tablet 400 mg PO BID RF: 0 warfarin 2 tablet 4 mg PO SUMOTUTHFR RF: 0 acetaminophen 500 MG tablet 1,000 mg PO Q6H PRN PRN (Reason: Headache) RF: 0 sertraline 25 MG tablet 108 mg PO DAILY RF: 0 aspirin 81 MG tablet,chewable 81 mg PO DAILY@0800 RF: 0 omeprazole 40 MG capsule,delayed release(DR/EC) 1 cap PO DAILY Qty: 14 RF: 0 Primary Care Provider: Karly Bose Referrals: Karly Bose DO [Primary Care Provider] - Disposition Disposition: Acute Care Hospital Discharge Location: [facility]
[2020-10-21 18:49] LABS: Color, Urine Yellow (Yellow); Glucose, Dipstick Normal (Normal); Ketone-Dipstick 5 mg/dl (Negative); Leukocyte Esterase-Dipstick 25 /ul (Negative); Nitrite-Dipstick Negative (Negative); Occult Blood-Urine 50 /ul (Negative); Protein-Dipstick 500 mg/dl (Negative); Urine Bilirubin Dipstick Negative (Negative); Urine Clarity Sl. Cloudy (Clear); Urine Urobilinogen Normal (Normal)
[2020-10-21] MEDS: Morphine 4 MG/ML Syringe IV (18:56)
[2020-10-21] MEDS: Ondansetron 4 MG/2 ML Vial IV (18:56)
[2020-10-21] MEDS: 0.9% Normal Saline 1,000 ML 150 ML IV (18:57)
[2020-10-21 19:13] LABS: Red Blood Cells-Urine 0-5 SEEN /hpf (0-5); Squamous Epithelial Cells - UA 5-10 SEEN /hpf (5-10); White Blood Cells 0-5 SEEN /hpf (0-5)
[2020-10-21 19:14] LABS: Absolute Lymphocyte Count 0.76 X10^3/uL (0.83-4.51); Absolute Neutrophil Count 11.9 X10^3/uL (2.0-7.7); Basophil# 0.03 X10^3/uL; Basophil% 0.2 % (0-1); Hematocrit 32.6 % (37-47); Lymphocyte # 0.76 X10^3/ul (0.83-4.51); Lymphocyte % 5.6 % (19-41); Mean Corp Hgb Conc 30.7 g/dL (32-36); Mean Corpuscular Hgb 26.7 pg (27.0-32.0); Mean Corpuscular Volume 87.2 fL (81-99); Mean Platelet Vol. 11.3 fl (6.2-12.0); Monocyte# 0.83 X10^3/uL; Monocyte% 6.1 % (0-10); NRBC Flagged by Analyzer 0 % (0-5); Neutrophil # 11.94 X10^3/uL (2.7-7.7); Neutrophil % 87.7 % (47-70); Platelet Count 231 K/mm3 (150-450); RBC Distribution Width CV 15.9 % (11.6-14.6); RBC Distribution Width SD 50.5 fl (35.1-43.9); Red Blood Count 3.74 M/mm3 (4.2-5.4); White Blood Count 13.6 K/mm3 (4.4-11.0)
[2020-10-21 19:22] VITALS: BP 128/56; PULSE 100; RESP 20; O2SAT 97
[2020-10-21 19:36] LABS: Internal QC Validated? YES +Cl - CLEAR BKGD; Pregnancy, Serum, hCG Quali. NEGATIVE Negative
[2020-10-21 19:43] LABS: AST(SGOT) 21 U/L (15-37); Alanine Aminotransfer ALT/SGPT 45 U/L (13-56); Albumin, Serum 2.7 g/dL (3.2-5.0); Alkaline Phosphatase 125 U/L (45-117); Anion Gap 11 (5-15); BUN 21 mg/dL (7-18); BUN/Creat Ratio 20.6 RATIO (10-20); Bilirubin, Direct 0.16 mg/dL (0.00-0.30); Calcium,Total 8.8 mg/dL (8.5-10.1); Chloride 101 mmol/L (98-107); Creatinine, Serum 1.02 mg/dL (0.55-1.02); EST Glomerular Filtration Rate 63 mL/min (>60); Est Glom Filt Rate - Afr Amer 76 mL/min (>60); Estimated Creatinine Clearance 68.44 ml/min; Globulin 5.1 g/dL (2.2-4.2); Glucose 93 mg/dL (74-106); Potassium 4.1 mmol/L (3.5-5.1); Protein, Total 7.8 g/dL (6.4-8.2); Sodium Level 139 mmol/L (136-145)
[2020-10-21 20:24] LABS: International Normalized Ratio 2.3; Prothrombin Time (Protime)PT. 24.6 SECONDS (11.7-14.9)
--- NOTE | 2020-10-21 20:28 | CT_ITS ---
We are attempting to reach an attending provider to discuss findings. An addendum with communication details will be sent when the communication is complete. STUDY: CT ABDOMEN AND PELVIS WITH CONTRAST REASON FOR EXAM: Female, 45 years old. LLQ pain -- IV PO Contrast RADIATION DOSAGE (If Supplied By Facility): CTDIvol = ( 20.40 ) mGy, DLP = ( 1473.27 ) mGycm TECHNIQUE: Transaxial images were obtained from the dome of the diaphragm to the symphysis pubis with oral contrast. IV 100mL Isovue-370 was administered. Sagittal and coronal images were reconstructed. Individualized dose optimization techniques were used for this CT. COMPARISON: Prior abdomen and pelvic CT exam of 03/22/2019 FINDINGS: The visualized lung bases are unremarkable. The visualized portions of the heart are within normal limits. Normal liver. Normal gallbladder and extrahepatic biliary system. Normal spleen. Normal pancreas. Stable minimal nodule of the left adrenal gland. Normal right adrenal gland. Small cortical scar and a 2 mm nonobstructing stone in the lower pole of the right kidney without hydronephrosis or ureteral stones. Normal left kidney. Normal visualized stomach. Normal small intestine. Large multiloculated fluid and air collection of the left mid and left lower quadrant measuring 10 x 9 x 13 cm with surrounding inflammatory changes which is closely associated/affixed to the descending colon with diverticulosis present. The remainder of the colon is unremarkable. A normal size appendix is identified. There is an appendicolith at the tip of the appendix. Normal abdominal aorta. Normal inferior vena cava. Shotty periaortic lymph nodes. Normal urinary bladder. Negative for pelvic mass or substantial free fluid of the pelvis. Normal abdominal wall. There are diffuse degenerative changes of the visualized lumbar spine. CT/Abdomen/Pelvis WITH Contrast IMPRESSION: Large well-developed pericolonic/peridiverticular abscess associated with the mid and distal descending colon measuring 10 x 9 x 13 cm with surrounding inflammatory changes and containing fluid and air. Negative for obstruction. Negative for a general perforation into the peritoneal space. No additional acute abdominal or pelvic findings. Unremarkable liver, spleen and pancreas with a nondistended gallbladder. Stable minimal nodule in the left adrenal gland. 2 mm nonobstructing stone in the lower pole of the right kidney. Unremarkable urinary bladder. Negative for pelvic mass or free fluid in the pelvis. Appendicolith in the tip of the appendix with no evidence of inflammation of the appendix. Electronically Signed: Malrene Hagen MD at 21:05 EDT , Service support ,
[2020-10-21 20:36] LABS: Lactic Acid 1.4 mmol/L (0.4-1.9)
[2020-10-21 21:00] VITALS: BP 127/64; PULSE 100; RESP 18; TEMP 39.6; O2SAT 99
[2020-10-21] MEDS: Acetaminophen 500 MG Tablet 1000 MG PO (21:58)
[2020-10-21] MEDS: Ciprofloxacin 500 MG Tablet PO (21:59)
[2020-10-21] MEDS: metroNIDAZOLE 500 MG/100 ML BAG 100 MG IV (22:00)
[2020-10-21 22:32] VITALS: TEMP 37.8
[2020-10-22] VITALS: BP 122/62; PULSE 88; RESP 16; O2SAT 99
[2020-10-22 00:33] VITALS: TEMP 36.9
--- NOTE | 2020-10-22 18:23 | ED.RN ---
BLOOD CULTURE RESULTS SENT TO [facility]
== END 2020-10-22 01:40 | disposition short-term general hospital (02) ==
PROVIDERS: Emergency Provider Emergency Medicine; PCP Family Medicine
DX: K57.20 Diverticulitis of large intestine with perforation and abscess without bleeding (principal); K58.9 Irritable bowel syndrome, unspecified; Z20.822 Contact with and (suspected) exposure to COVID-19; Z79.01 Long term (current) use of anticoagulants; Z79.82 Long term (current) use of aspirin; Z79.899 Other long term (current) drug therapy
CPT/HCPCS: 36415; 74177; 80048; 80076; 81001; 83605; 84703; 85025; 85610; 87040; 87149; 87426; 96361; 96365; 96367; 96375; 99285; J7030; J7050; Q9967; A4216; J2405; J3490

== ENCOUNTER → 2020-10-28 | Outpatient (CLI) | payer MEDICARE, MEDICAID, SELFPAY ==
[2020-10-21 17:22] VITALS: BMI 44.9
[2020-10-28 14:08] VITALS: BP 123/70; PULSE 74; RESP 16; TEMP 35.9; O2SAT 96; BMI 45.2
[2020-10-28] MEDS: 0.9% NaCl PICC Flush IV ×3 (14:29→15:48)
[2020-10-28] MEDS: 0.9% NaCl IVPB Med Flush (250 mL) 15 ML IV (14:34)
[2020-10-28 14:36] LABS: Absolute Lymphocyte Count 0.98 X10^3/uL (0.83-4.51); Absolute Neutrophil Count 5.3 X10^3/uL (2.0-7.7); Basophil# 0.03 X10^3/uL; Basophil% 0.4 % (0-1); Eosinophil# 0.12 X10^3/uL; Eosinophils% 1.8 % (0-5); Hemoglobin 8.7 g/dL (12.0-15.0); Lymphocyte # 0.98 X10^3/ul (0.83-4.51); Lymphocyte % 14.3 % (19-41); Mean Corpuscular Hgb 26.7 pg (27.0-32.0); Mean Platelet Vol. 11.3 fl (6.2-12.0); Monocyte# 0.32 X10^3/uL; Monocyte% 4.7 % (0-10); NRBC Flagged by Analyzer 0 % (0-5); Neutrophil % 77.3 % (47-70); Platelet Count 194 K/mm3 (150-450); RBC Distribution Width CV 16.4 % (11.6-14.6); RBC Distribution Width SD 51.9 fl (35.1-43.9); Red Blood Count 3.26 M/mm3 (4.2-5.4); White Blood Count 6.9 K/mm3 (4.4-11.0)
[2020-10-28 14:53] LABS: ALB/GLOB Ratio 0.6 RATIO (0.9-2.4); AST(SGOT) 12 U/L (15-37); Alanine Aminotransfer ALT/SGPT 32 U/L (13-56); Albumin, Serum 2.4 g/dL (3.2-5.0); Alkaline Phosphatase 81 U/L (45-117); Anion Gap 6 (5-15); BUN 21 mg/dL (7-18); BUN/Creat Ratio 26.7 RATIO (10-20); Calcium,Total 8.3 mg/dL (8.5-10.1); Chloride 109 mmol/L (98-107); Creatinine, Serum 0.79 mg/dL (0.55-1.02); EST Glomerular Filtration Rate 84 mL/min (>60); Est Glom Filt Rate - Afr Amer 102 mL/min (>60); Estimated Creatinine Clearance 88.37 ml/min; Glucose 99 mg/dL (74-106); Potassium 4.6 mmol/L (3.5-5.1); Protein, Total 6.4 g/dL (6.4-8.2); Sodium Level 141 mmol/L (136-145)
[2020-10-28 16:08] VITALS: BP 122/64; PULSE 70; RESP 16
== END | disposition home or self-care (01) ==
LOC: MEDOUTP 13:48
PROVIDERS: PCP Family Medicine; Referring Provider Internal Medicine Infectious Disease; Visit Provider Internal Medicine Infectious Disease
DX: K57.80 Diverticulitis of intestine, part unspecified, with perforation and abscess without bleeding (principal); B96.20 Unspecified Escherichia coli [E. coli] as the cause of diseases classified elsewhere; Z16.12 Extended spectrum beta lactamase (ESBL) resistance
CPT/HCPCS: 96365; 36592; 80053; 85025; J7050; A4216

== ENCOUNTER → 2020-10-29 12:54 | Outpatient (CLI) | payer MEDICARE, MEDICAID, SELFPAY ==
[2020-10-21 17:22] VITALS: BMI 44.9
[2020-10-28 14:08] VITALS: BMI 45.2
[2020-10-29] MEDS: 0.9% NaCl IVPB Med Flush (250 mL) 15 ML IV (13:04)
[2020-10-29] MEDS: 0.9% NaCl PICC Flush IV ×3 (13:04→14:17)
[2020-10-29 13:15] VITALS: BP 124/53; PULSE 71; RESP 18; TEMP 36.1; O2SAT 97; BMI 45.2
[2020-10-29 14:09] VITALS: BP 131/77; PULSE 76; RESP 16; TEMP 36
== END ==
PROVIDERS: PCP Family Medicine; Referring Provider Internal Medicine Infectious Disease; Visit Provider Internal Medicine Infectious Disease
DX: K57.80 Diverticulitis of intestine, part unspecified, with perforation and abscess without bleeding (principal); B96.20 Unspecified Escherichia coli [E. coli] as the cause of diseases classified elsewhere; Z16.12 Extended spectrum beta lactamase (ESBL) resistance
CPT/HCPCS: 96365; J7050; A4216

== ENCOUNTER 2020-10-30 13:00 | Outpatient (CLI) | payer MEDICARE, MEDICAID, SELFPAY ==
[2020-10-29 13:15] VITALS: BMI 45.2
[2020-10-30] MEDS: 0.9% NaCl PICC Flush IV ×2 (13:10→14:21)
== END 2020-10-30 14:31 | disposition home or self-care (01) ==
LOC: MEDOUTP 13:00 → MS3 13:01
PROVIDERS: PCP Family Medicine; Referring Provider Internal Medicine Infectious Disease; Visit Provider Internal Medicine Infectious Disease
DX: K57.80 Diverticulitis of intestine, part unspecified, with perforation and abscess without bleeding (principal); B96.20 Unspecified Escherichia coli [E. coli] as the cause of diseases classified elsewhere; Z16.12 Extended spectrum beta lactamase (ESBL) resistance
CPT/HCPCS: 96365; J7050; A4216

== ENCOUNTER 2020-10-31 12:55 | Outpatient (CLI) | payer MEDICARE, MEDICAID, SELFPAY ==
[2020-10-29 13:15] VITALS: BMI 45.2
[2020-10-31] MEDS: 0.9% NaCl PICC Flush IV ×2 (13:14→14:16)
== END 2020-10-31 13:50 | disposition home or self-care (01) ==
LOC: MEDOUTP 12:56 → MS3 12:56
PROVIDERS: PCP Family Medicine; Referring Provider Internal Medicine Infectious Disease; Visit Provider Internal Medicine Infectious Disease
DX: K57.80 Diverticulitis of intestine, part unspecified, with perforation and abscess without bleeding (principal); B96.20 Unspecified Escherichia coli [E. coli] as the cause of diseases classified elsewhere; Z16.12 Extended spectrum beta lactamase (ESBL) resistance
CPT/HCPCS: 96365; J7050; A4216

== ENCOUNTER → 2020-11-01 12:53 | Outpatient (CLI) | payer MEDICARE, MEDICAID, SELFPAY ==
[2020-10-21 17:22] VITALS: BMI 44.9
[2020-10-29 13:15] VITALS: BMI 45.2
[2020-11-01 13:14] VITALS: BP 102/53; PULSE 78; RESP 16; TEMP 36.2; O2SAT 95; BMI 46.2
[2020-11-01] MEDS: 0.9% NaCl IVPB Med Flush (250 mL) 15 ML IV (13:43)
[2020-11-01] MEDS: 0.9% NaCl PICC Flush IV ×2 (13:43→14:40)
[2020-11-01 14:19] LABS: Erythrocyte Sedimentation Rate 43 mm/hr (0-30)
[2020-11-01 14:21] LABS: Free T3 2.3 pg/mL (2.18-3.98); T4 Free Direct 0.91 ng/dL (0.76-1.46); Thyroid Stim Hormone (TSH) 1.45 uIU/mL (0.358-3.74)
[2020-11-01 14:40] VITALS: BP 109/58; PULSE 82; RESP 16; TEMP 36.3; O2SAT 95
[2020-11-01 17:43] LABS: Prothrombin Time (Protime)PT. 21.8 SECONDS (11.7-14.9)
== END ==
PROVIDERS: PCP Family Medicine; Referring Provider Internal Medicine Infectious Disease; Visit Provider Internal Medicine Infectious Disease
DX: K57.80 Diverticulitis of intestine, part unspecified, with perforation and abscess without bleeding (principal); B96.20 Unspecified Escherichia coli [E. coli] as the cause of diseases classified elsewhere; Z16.12 Extended spectrum beta lactamase (ESBL) resistance; E03.9 Hypothyroidism, unspecified; K65.1 Peritoneal abscess; Z51.81 Encounter for therapeutic drug level monitoring; Z86.718 Personal history of other venous thrombosis and embolism
CPT/HCPCS: 96365; 36415; 36592; 84439; 84443; 84481; 85610; 85652; 86140; J7050; A4216

== ENCOUNTER → 2020-11-02 12:54 | Outpatient (CLI) | payer MEDICARE, MEDICAID, SELFPAY ==
[2020-10-21 17:22] VITALS: BMI 44.9
[2020-11-01 13:14] VITALS: BMI 46.2
[2020-11-02 13:12] VITALS: BP 119/65; PULSE 89; RESP 16; TEMP 36.2; O2SAT 98; BMI 45.8
[2020-11-02] MEDS: 0.9% NaCl IVPB Med Flush (250 mL) 15 ML IV (13:17)
[2020-11-02] MEDS: 0.9% NaCl PICC Flush IV ×2 (13:17→14:12)
[2020-11-02 14:14] VITALS: BP 114/53; PULSE 79; RESP 16; O2SAT 97
== END ==
PROVIDERS: PCP Family Medicine; Referring Provider Internal Medicine Infectious Disease; Visit Provider Internal Medicine Infectious Disease
DX: K57.80 Diverticulitis of intestine, part unspecified, with perforation and abscess without bleeding (principal); B96.20 Unspecified Escherichia coli [E. coli] as the cause of diseases classified elsewhere; Z16.12 Extended spectrum beta lactamase (ESBL) resistance
CPT/HCPCS: 96365; J7050; A4216

== ENCOUNTER → 2020-11-03 12:47 | Outpatient (CLI) | payer MEDICARE, MEDICAID, SELFPAY ==
[2020-10-21 17:22] VITALS: BMI 44.9
[2020-11-02 13:12] VITALS: BMI 45.8
[2020-11-03] MEDS: 0.9% NaCl IVPB Med Flush (250 mL) 15 ML IV (12:55)
[2020-11-03] MEDS: 0.9% NaCl PICC Flush IV ×2 (12:55→14:25)
[2020-11-03 13:06] VITALS: BP 115/61; PULSE 82; RESP 16; TEMP 36.3; O2SAT 98; BMI 45.8
[2020-11-03 14:27] VITALS: BP 117/57; PULSE 73; RESP 16; TEMP 36.5; O2SAT 98
== END ==
PROVIDERS: PCP Family Medicine; Referring Provider Internal Medicine Infectious Disease; Visit Provider Internal Medicine Infectious Disease
DX: K57.80 Diverticulitis of intestine, part unspecified, with perforation and abscess without bleeding (principal); B96.20 Unspecified Escherichia coli [E. coli] as the cause of diseases classified elsewhere; Z16.12 Extended spectrum beta lactamase (ESBL) resistance
CPT/HCPCS: 96365; J7050; A4216

== ENCOUNTER → 2020-11-04 12:58 | Outpatient (CLI) | payer MEDICARE, MEDICAID, SELFPAY ==
[2020-10-21 17:22] VITALS: BMI 44.9
[2020-11-03 13:06] VITALS: BMI 45.8
[2020-11-04] MEDS: 0.9% NaCl PICC Flush IV ×3 (14:16→15:44)
[2020-11-04] MEDS: 0.9% NaCl IVPB Med Flush (250 mL) 15 ML IV (14:17)
[2020-11-04 14:24] VITALS: BP 105/50; PULSE 71; RESP 16; TEMP 36; O2SAT 95; BMI 45.7
[2020-11-04 14:39] LABS: Absolute Lymphocyte Count 0.84 X10^3/uL (0.83-4.51); Absolute Neutrophil Count 4.4 X10^3/uL (2.0-7.7); Basophil# 0.02 X10^3/uL; Basophil% 0.4 % (0-1); Eosinophil# 0.07 X10^3/uL; Eosinophils% 1.2 % (0-5); Hematocrit 30.2 % (37-47); Hemoglobin 9.1 g/dL (12.0-15.0); Lymphocyte # 0.84 X10^3/ul (0.83-4.51); Lymphocyte % 14.8 % (19-41); Mean Corp Hgb Conc 30.1 g/dL (32-36); Mean Corpuscular Hgb 27.2 pg (27.0-32.0); Mean Corpuscular Volume 90.1 fL (81-99); Mean Platelet Vol. 11.5 fl (6.2-12.0); Monocyte# 0.34 X10^3/uL; NRBC Flagged by Analyzer 0 % (0-5); Neutrophil # 4.38 X10^3/uL (2.7-7.7); Neutrophil % 77.2 % (47-70); Platelet Count 184 K/mm3 (150-450); RBC Distribution Width CV 18.4 % (11.6-14.6); RBC Distribution Width SD 59.7 fl (35.1-43.9); Red Blood Count 3.35 M/mm3 (4.2-5.4); White Blood Count 5.7 K/mm3 (4.4-11.0)
[2020-11-04 14:55] LABS: ALB/GLOB Ratio 0.7 RATIO (0.9-2.4); AST(SGOT) 9 U/L (15-37); Alanine Aminotransfer ALT/SGPT 27 U/L (13-56); Albumin, Serum 2.7 g/dL (3.2-5.0); Alkaline Phosphatase 91 U/L (45-117); Anion Gap 4 (5-15); BUN 20 mg/dL (7-18); BUN/Creat Ratio 25.5 RATIO (10-20); Calcium,Total 8.3 mg/dL (8.5-10.1); Chloride 109 mmol/L (98-107); Creatinine, Serum 0.78 mg/dL (0.55-1.02); EST Glomerular Filtration Rate 85 mL/min (>60); Est Glom Filt Rate - Afr Amer 102 mL/min (>60); Globulin 4.1 g/dL (2.2-4.2); Glucose 95 mg/dL (74-106); Potassium 4.7 mmol/L (3.5-5.1); Protein, Total 6.8 g/dL (6.4-8.2); Sodium Level 142 mmol/L (136-145)
[2020-11-04 15:29] VITALS: BP 115/58; PULSE 82; RESP 16; TEMP 35.7
[2020-11-04 22:36] LABS: Xtra Tube EP Lab EXTRA TUBE
== END ==
PROVIDERS: PCP Family Medicine; Referring Provider Internal Medicine Infectious Disease; Visit Provider Internal Medicine Infectious Disease
DX: K57.80 Diverticulitis of intestine, part unspecified, with perforation and abscess without bleeding (principal); B96.20 Unspecified Escherichia coli [E. coli] as the cause of diseases classified elsewhere; Z16.12 Extended spectrum beta lactamase (ESBL) resistance
CPT/HCPCS: 96365; 80053; 85025; J7050; A4216

== ENCOUNTER → 2020-11-05 12:55 | Outpatient (CLI) | payer MEDICARE, MEDICAID, SELFPAY ==
[2020-10-21 17:22] VITALS: BMI 44.9
[2020-11-04 14:24] VITALS: BMI 45.7
[2020-11-05] MEDS: 0.9% NaCl PICC Flush IV ×2 (13:29→14:16)
[2020-11-05] MEDS: 0.9% NaCl IVPB Med Flush (250 mL) 15 ML IV (13:29)
[2020-11-05 13:31] VITALS: BP 108/67; PULSE 85; RESP 16; TEMP 36.2; O2SAT 100; BMI 46.2
[2020-11-05 14:27] VITALS: BP 137/73; PULSE 79; RESP 18; TEMP 36; O2SAT 97
== END ==
PROVIDERS: PCP Family Medicine; Referring Provider Internal Medicine Infectious Disease; Visit Provider Internal Medicine Infectious Disease
DX: K57.80 Diverticulitis of intestine, part unspecified, with perforation and abscess without bleeding (principal); B96.20 Unspecified Escherichia coli [E. coli] as the cause of diseases classified elsewhere; Z16.12 Extended spectrum beta lactamase (ESBL) resistance
CPT/HCPCS: 96365; J7050; A4216

== ENCOUNTER 2020-11-06 12:49 | Outpatient (CLI) | payer MEDICARE, MEDICAID, SELFPAY ==
[2020-11-05 13:31] VITALS: BMI 46.2
[2020-11-06] MEDS: 0.9 % NaCl (Sterile) Posiflush 10 mL IV ×2 (12:58→13:50)
[2020-11-06 13:07] VITALS: BP 97/50; PULSE 73; RESP 16; TEMP 36.6; O2SAT 97
== END 2020-11-06 13:34 | disposition home or self-care (01) ==
LOC: MEDOUTP 12:50 → MS3 12:51
PROVIDERS: PCP Family Medicine; Referring Provider Internal Medicine Infectious Disease; Visit Provider Internal Medicine Infectious Disease
DX: K57.80 Diverticulitis of intestine, part unspecified, with perforation and abscess without bleeding (principal); B96.20 Unspecified Escherichia coli [E. coli] as the cause of diseases classified elsewhere; Z16.12 Extended spectrum beta lactamase (ESBL) resistance
CPT/HCPCS: 96365; J7050

== ENCOUNTER 2020-11-07 13:00 | Outpatient (CLI) | payer MEDICARE, MEDICAID, SELFPAY ==
[2020-11-05 13:31] VITALS: BMI 46.2
[2020-11-07] MEDS: 0.9% Saline Lock 10 ML Syringe IV (14:27)
== END 2020-11-07 14:30 | disposition home or self-care (01) ==
LOC: MEDOUTP 13:02 → MS3 13:03
PROVIDERS: PCP Family Medicine; Referring Provider Internal Medicine Infectious Disease; Visit Provider Internal Medicine Infectious Disease
DX: K57.80 Diverticulitis of intestine, part unspecified, with perforation and abscess without bleeding (principal); B96.20 Unspecified Escherichia coli [E. coli] as the cause of diseases classified elsewhere; Z16.12 Extended spectrum beta lactamase (ESBL) resistance
CPT/HCPCS: 96365; A4216

== ENCOUNTER → 2020-11-08 13:23 | Outpatient (CLI) | payer MEDICARE, MEDICAID, SELFPAY ==
[2020-10-21 17:22] VITALS: BMI 44.9
[2020-11-05 13:31] VITALS: BMI 46.2
[2020-11-08 13:48] VITALS: BP 120/62; PULSE 92; RESP 18; TEMP 36.6; O2SAT 98; BMI 46.2
[2020-11-08] MEDS: 0.9% NaCl Peripheral Flush Adult/Peds IV ×3 (13:56→14:56)
[2020-11-08] MEDS: 0.9% NaCl IVPB Med Flush (250 mL) 15 ML IV (14:00)
[2020-11-08 14:58] VITALS: BP 119/60; PULSE 94
== END ==
PROVIDERS: PCP Family Medicine; Referring Provider Internal Medicine Infectious Disease; Visit Provider Internal Medicine Infectious Disease
DX: K57.80 Diverticulitis of intestine, part unspecified, with perforation and abscess without bleeding (principal); B96.20 Unspecified Escherichia coli [E. coli] as the cause of diseases classified elsewhere; Z16.12 Extended spectrum beta lactamase (ESBL) resistance
CPT/HCPCS: 96365; 74177; J7050; Q9967; A4216

== ENCOUNTER → 2020-11-08 15:42 | Outpatient (CLI) | payer MEDICARE, MEDICAID, SELFPAY ==
[2020-11-01 13:14] VITALS: BMI 46.2
[2020-11-08 13:48] VITALS: BMI 46.2
--- NOTE | 2020-11-08 15:46 | CT_ITS ---
INDICATION: INTESTINAL DIVERTICULAR ABSCESS EXAMINATION: CT Abdomen And Pelvis W/ Contrast Injection TECHNIQUE: Helically acquired images were obtained of the abdomen and pelvis after IV contrast. A radiation dose optimization technique was used for this scan. IV Contrast dosage and agent: Oral and amp; IV Readi-CAT and amp; 100mL Isovue-370 Oral contrast: Yes. COMPARISON: 10/21/2020 FINDINGS: Visualized lung bases: Unremarkable Liver: Unremarkable Gallbladder: Unremarkable Spleen: Unremarkable Pancreas: Unremarkable Adrenal Glands: Nodular left adrenal gland. Normal right adrenal gland. Kidneys: Unremarkable Vasculature: Unremarkable GI Tract: There are scattered colonic diverticula. There is a short segment wall thickening of the proximal sigmoid colon with surrounding mesenteric fat stranding. There is an anterior abdominal wall approach intra-abdominal drainage catheter ending in the left lower quadrant adjacent to the inflamed sigmoid colon. Interval resolution of previously described diverticular abscess. Lymphadenopathy: None Peritoneum: No ascites. Bladder: Unremarkable Reproductive organs: Unremarkable Bones/Soft tissues: There are diffuse degenerative changes of the spine. CT/Abdomen/Pelvis WITH Contrast IMPRESSION: Acute sigmoid diverticulitis. Interval resolution of diverticular abscess. Electronically Signed: Asher Wilson MD at 17:38 EDT Tel , Service support ,
--- NOTE | 2020-11-09 09:24 | NURSING ---
FRANK Girard asked to assess pt's PICC for CT scan on 11/08/2020 at 1550 by tractor trailer technician. Pt in Radiology Outpatient waiting area. FRANK Girard told by registration that pt is in hallway bathroom. FRANK Girard knocked on door of bathroom and states Hi, I'm one of the radiology nurses, are you doing ok? Pt states Hi, thank you for checking on me, I need some help. My drainage tube is falling out and I can't really get off the toilet to get the door open The door to the bathroom is locked, Jeffrey Bell, Edwardo is walking by and asks if FRANK Girard needs help. FRANK Girard states the door needs to be opened. Jeffrey states he will call the boilerman. FRANK Girard tells the patient the boilerman is coming to open the door and then she can be assessed over in Radiology. Boilerman arrives and the door is opened. Pt is sitting on the toilet holding a dressing over LLQ abdomen drain tube. Pt continually pushes the drain tube back into abdomen with her hands stating It keeps coming out and this dressing keeps falling off and I'm not sure what to do. FRANK Girard states, let's get you over to my Radiology bed so I can look at it and re-dress it. Pt states ok and is able to stand holding on to dressing and get to wheelchair. FRANK Girard wheels pt into Radiology and helps pt onto radiology bed. Pt's stayfix dressing has come undone. Pt's drainage tube is sutured in place and patient is reassured the tube is where it should be. FRANK Girard instructs pt not to touch the tube with her bare hands that she could contaminate it and cause infection. Pt states she understands. Old stayfix is removed, skin is cleaned with chlorahexadine and prepped with skin prep swab. New stay fix is placed. Pt is given medipore tape to take home and use if needed. Pt's PICC is then assess and determined to be rated for 4mL/sec injection.
== END ==
PROVIDERS: PCP Family Medicine; Referring Provider Internal Medicine Infectious Disease; Visit Provider Internal Medicine Infectious Disease
DX: K63.0 Abscess of intestine (principal)
CPT/HCPCS: 74177; Q9967; A4216

== ENCOUNTER → 2020-11-09 08:58 | Outpatient (CLI) | payer MEDICARE, MEDICAID, SELFPAY ==
[2020-10-21 17:22] VITALS: BMI 44.9
[2020-11-08 13:48] VITALS: BMI 46.2
[2020-11-09 09:06] VITALS: BP 117/65; PULSE 77; RESP 16; TEMP 36.3; O2SAT 98; BMI 46.2
[2020-11-09] MEDS: 0.9% NaCl PICC Flush IV ×2 (09:17→10:38)
[2020-11-09] MEDS: 0.9% NaCl IVPB Med Flush (250 mL) 15 ML IV (09:17)
[2020-11-09 10:39] VITALS: BP 116/58; PULSE 80; RESP 16; TEMP 36.2
== END ==
PROVIDERS: PCP Family Medicine; Referring Provider Internal Medicine Infectious Disease; Visit Provider Internal Medicine Infectious Disease
DX: K57.80 Diverticulitis of intestine, part unspecified, with perforation and abscess without bleeding (principal); B96.20 Unspecified Escherichia coli [E. coli] as the cause of diseases classified elsewhere; Z16.12 Extended spectrum beta lactamase (ESBL) resistance
CPT/HCPCS: 96365; J7050; A4216

== ENCOUNTER → 2020-11-10 09:37 | Outpatient (CLI) | payer MEDICARE, MEDICAID, SELFPAY ==
[2020-11-09 09:06] VITALS: BMI 46.2
== END ==
PROVIDERS: PCP Family Medicine; Referring Provider Internal Medicine Infectious Disease; Visit Provider Internal Medicine Infectious Disease
DX: K57.20 Diverticulitis of large intestine with perforation and abscess without bleeding (principal)

== ENCOUNTER → 2021-04-05 13:57 | Outpatient (CLI) | payer MEDICARE, MEDICAID, SELFPAY ==
[2021-04-05 15:21] LABS: Absolute Lymphocyte Count 1.16 X10^3/uL (0.83-4.51); Absolute Neutrophil Count 3.8 X10^3/uL (2.0-7.7); Basophil# 0.03 X10^3/uL; Basophil% 0.5 % (0-1); Eosinophils% 1.8 % (0-5); Hematocrit 32.4 % (37-47); Hemoglobin 10.4 g/dL (12.0-15.0); Lymphocyte # 1.16 X10^3/ul (0.83-4.51); Lymphocyte % 20.7 % (19-41); Mean Corp Hgb Conc 32.1 g/dL (32-36); Mean Corpuscular Volume 90.3 fL (81-99); Monocyte# 0.45 X10^3/uL; NRBC Flagged by Analyzer 0 % (0-5); Neutrophil # 3.84 X10^3/uL (2.7-7.7); Neutrophil % 68.6 % (47-70); Platelet Count 175 K/mm3 (150-450); RBC Distribution Width CV 16.1 % (11.6-14.6); RBC Distribution Width SD 53.5 fl (35.1-43.9); Red Blood Count 3.59 M/mm3 (4.2-5.4); White Blood Count 5.6 K/mm3 (4.4-11.0)
[2021-04-05 16:10] LABS: Vitamin B12 836 pg/mL (211-911)
[2021-04-05 16:11] LABS: ALB/GLOB Ratio 0.7 RATIO (0.9-2.4); AST(SGOT) 9 U/L (15-37); Alanine Aminotransfer ALT/SGPT 30 U/L (13-56); Albumin, Serum 3.1 g/dL (3.2-5.0); Alkaline Phosphatase 117 U/L (45-117); Anion Gap 6 (5-15); BUN 23 mg/dL (7-18); Calcium,Total 8.7 mg/dL (8.5-10.1); Chloride 114 mmol/L (98-107); Creatinine, Serum 0.85 mg/dL (0.55-1.02); EST Glomerular Filtration Rate 77 mL/min (>60); Est Glom Filt Rate - Afr Amer 93 mL/min (>60); Globulin 4.6 g/dL (2.2-4.2); Glucose 103 mg/dL (74-106); Iron 31 ug/dL (50-170); Magnesium 1.8 mg/dL (1.6-2.6); Potassium 3.9 mmol/L (3.5-5.1); Protein, Total 7.7 g/dL (6.4-8.2); Sodium Level 143 mmol/L (136-145); Thyroid Stim Hormone (TSH) 1.68 uIU/mL (0.358-3.74)
== END ==
PROVIDERS: PCP Family Medicine; Referring Provider Family Medicine; Visit Provider Family Medicine
DX: R53.83 Other fatigue (principal); D64.9 Anemia, unspecified; K52.9 Noninfective gastroenteritis and colitis, unspecified; Z51.81 Encounter for therapeutic drug level monitoring; E55.9 Vitamin D deficiency, unspecified; E53.8 Deficiency of other specified B group vitamins
CPT/HCPCS: 36415; 80053; 82306; 82607; 83540; 83735; 84443; 85025

== ENCOUNTER 2021-04-11 17:11 | Emergency (ER) | payer MEDICARE, MEDICAID, SELFPAY ==
[2021-04-11 17:12] VITALS: BP 123/81; PULSE 104; RESP 16; TEMP 36.7; O2SAT 97; BMI 48.0
--- NOTE | 2021-04-11 18:07 | CT_ITS ---
STUDY: CT ABDOMEN AND PELVIS WITH CONTRAST REASON FOR EXAM: Female, 45 years old. Abd pain, GI bleed -- IV PO Contrast RADIATION DOSAGE (If Supplied By Facility): CTDIvol = ( 22.07 ) mGy, DLP = ( 1402.40 ) mGycm TECHNIQUE: Transaxial images were obtained from the dome of the diaphragm to the symphysis pubis without oral contrast. Oral and amp; IV Gastrografin and amp; 100mL Isovue-370 was administered. Sagittal and coronal images were reconstructed. Individualized dose optimization techniques were used for this CT. COMPARISON: 11/08/2020 FINDINGS: The visualized lung bases are unremarkable. The visualized portions of the heart are within normal limits. Normal liver. Normal gallbladder and extrahepatic biliary system. Normal spleen. Normal pancreas. Normal bilateral adrenal glands. Normal right kidney. Small right renal collecting system calculus. Normal left kidney. Normal visualized stomach. 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 There is IV contrast imaging distal ileum. No finding of enteric bleed on this single phase exam. No small bowel or enlargement. Normal abdominal aorta. Normal inferior vena cava. Normal retroperitoneum. Normal urinary bladder. Normal visualized uterus. There are diffuse degenerative changes of the visualized lumbar spine. 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 No finding of GI bleed. No acute abnormal finding. Electronically Signed: Tyler Mora MD at 23:30 EST Tel , Service support ,
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
[2021-04-11] MEDS: Morphine 4 MG/ML Syringe IV (18:34)
[2021-04-11] MEDS: Ondansetron 4 MG/2 ML Vial IV (18:34)
[2021-04-11] MEDS: 0.9% Normal Saline 1,000 ML 150 ML IV (18:34)
[2021-04-11 18:56] LABS: Absolute Lymphocyte Count 1.35 X10^3/uL (0.83-4.51); Absolute Neutrophil Count 4.9 X10^3/uL (2.0-7.7); Basophil# 0.04 X10^3/uL; Basophil% 0.6 % (0-1); Eosinophil# 0.09 X10^3/uL; Eosinophils% 1.3 % (0-5); Hematocrit 33.9 % (37-47); Hemoglobin 10.9 g/dL (12.0-15.0); Lymphocyte # 1.35 X10^3/ul (0.83-4.51); Lymphocyte % 19.7 % (19-41); Mean Corp Hgb Conc 32.2 g/dL (32-36); Mean Corpuscular Hgb 29.3 pg (27.0-32.0); Mean Corpuscular Volume 91.1 fL (81-99); Mean Platelet Vol. 10.4 fl (6.2-12.0); Monocyte# 0.43 X10^3/uL; Monocyte% 6.3 % (0-10); NRBC Flagged by Analyzer 0 % (0-5); Neutrophil # 4.92 X10^3/uL (2.7-7.7); Neutrophil % 71.7 % (47-70); Platelet Count 199 K/mm3 (150-450); RBC Distribution Width CV 15.9 % (11.6-14.6); RBC Distribution Width SD 52.3 fl (35.1-43.9); Red Blood Count 3.72 M/mm3 (4.2-5.4); White Blood Count 6.9 K/mm3 (4.4-11.0)
[2021-04-11 19:15] LABS: Anion Gap 8 (5-15); BUN 26 mg/dL (7-18); BUN/Creat Ratio 26.9 RATIO (10-20); Calcium,Total 8.6 mg/dL (8.5-10.1); Chloride 112 mmol/L (98-107); Creatinine, Serum 0.97 mg/dL (0.55-1.02); EST Glomerular Filtration Rate 66 mL/min (>60); Est Glom Filt Rate - Afr Amer 80 mL/min (>60); Estimated Creatinine Clearance 74.66 ml/min; Glucose 109 mg/dL (74-106); Potassium 4.1 mmol/L (3.5-5.1); Sodium Level 144 mmol/L (136-145)
[2021-04-11 21:20] LABS: International Normalized Ratio 2.1; Prothrombin Time (Protime)PT. 23.1 SECONDS (11.7-14.9)
--- NOTE | 2021-04-11 23:09 | ED.RN ---
Called Radiology again for test results. Michael stated they have called three times. Radiologist was reading her CT but got pulled to read a stroke protocol CT. Michael stated she will keep watch and keep calling. Dr. Butler aware. PT and family aware.
[2021-04-11 23:15] VITALS: BP 108/78; PULSE 82; RESP 18; O2SAT 98
== END 2021-04-11 23:44 | disposition home or self-care (01) ==
PROVIDERS: Emergency Provider Emergency Medicine; PCP Family Medicine
DX: K94.01 Colostomy hemorrhage (principal); K58.9 Irritable bowel syndrome, unspecified; E66.9 Obesity, unspecified; Z79.01 Long term (current) use of anticoagulants; Z79.82 Long term (current) use of aspirin; Z86.711 Personal history of pulmonary embolism; Z90.49 Acquired absence of other specified parts of digestive tract
CPT/HCPCS: 36415; 74177; 80048; 85025; 85610; 96361; 96374; 96375; 99283; J7030; Q9967; A4216; J2405

== ENCOUNTER 2021-05-03 14:01 | Outpatient (CLI) | payer MEDICARE, MEDICAID, SELFPAY ==
--- NOTE | 2021-05-03 14:56 | WOUNDNOTE ---
Pt was seen today as a referral from Dr Bose for concerns of irritation and numerous leaks from ostomy appliances. this nurse has assessed skin a few times now and there has never been skin irritation to the peristomal skin. Pt states that she has been changing the appliance 9-15 times a day d/t leaks. If this was truly the case, it would be very unusual not to have any skin irritation. Pt is currently using a 2 piece flat [place] appliance with a paste ring. Pt has also been going to a stoma nurse in [facility] as well. Pt states that the stoma nurse there had tried a larger appliance and she had a reaction to the appliance. there is a faint pink area noted that was most likely from that appliance. there is no weeping of the skin. no bleeding noted from the stoma that patient also states she has been having. stoma is beefy red, moist, and is well budded. patient states she has gained approx 20-30 pounds so states she now weighs around 320 lbs. there is a small crease noted to abdomen near the umbilical area. pt states this is where most of the leaks occur. the peristomal skin was cleansed with warm water. pat dry. applied a new flat 2 piece [place] appliance with a thin paste ring. patient states she had been using 3 paste rings. discussed that this may actually be pushing the appliance too far away from the skin causing more leakage under the appliance. recommending patient just use the one thin paste ring and try an ostomy belt. was able to fit a large Jessica belt quite comfortably. Pt tolerated well and was very appreciative of care. Pt to update this nurse on appliance changing and leaks. Pt will follow up as needed. No further needs voiced at this time.
== END 2021-05-03 23:59 | disposition short-term general hospital (02) ==
LOC: ET 14:04
PROVIDERS: PCP Family Medicine; Referring Provider Family Medicine; Visit Provider Family Medicine
DX: Z98.890 Other specified postprocedural states (principal)
CPT/HCPCS: 99211; G0463

== ENCOUNTER 2021-06-22 21:20 | Outpatient (CLI) | payer MEDICARE, MEDICAID, SELFPAY | END 2021-06-22 23:59 | disposition home or self-care (01) | LOC: SL 21:20 | PROVIDERS: PCP Family Medicine; Visit Provider Family Medicine | DX: G47.33 Obstructive sleep apnea (adult) (pediatric) (principal) | CPT/HCPCS: 95811 ==

== ENCOUNTER 2021-07-04 15:58 | Emergency (ER) | payer MEDICARE, MEDICAID, SELFPAY ==
[2021-07-04 15:59] VITALS: BP 143/70; PULSE 90; RESP 17; TEMP 36.9; O2SAT 100; BMI 50.7
--- NOTE | 2021-07-04 16:45 | EDS_ITS ---
HPI HPI - GI History of Present Illness Chief Complaint: GI Bleed Informant: patient Abdominal Pain/Flank Pain Onset: Today Timing: Intermittent and Lasts (Brief) Quality: Sharp Location: - (Right side around ileostomy) Current Severity: Gone Maximum Severity: Moderate Worsened by: Nothing Relieved by: Nothing Nausea/Vomiting/Emesis GI Symptom: Negative for Nausea and Vomiting Diarrhea/Melena/Hematochezia GI Symptom: Positive for Hematochezia; Negative for Melena Onset: Today Associated Symptoms Associated Symptoms: Negative for Dysuria, Frequency, Hematuria and Urgency Narrative Narrative: Patient states she noticed blood in her ileostomy today, that he started having some intermittent sharp pains around her ileostomy. She has this due to a colectomy that was performed because of diffuse colonic diverticulitis and perforations. This was done remotely last year at [facility]. She is on warfarin because of pulmonary emboli, she is unsure why she is on warfarin as opposed to one of the newer anticoagulants. She does not have a mechanical heart valve. Last time she had her INR checked was last month. She states she was having some pain just prior to arrival, sharp pain she described in her right side, and she states after she had her back off to clean everything up and put a new bag on, suddenly she had a small amount of blood with a couple of clots come out, and the pain went away and she has had no significant bleeding since although she admits there is a slight pink tinge to the stool in her bag right now which I confirmed by looking at it. 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 Ileostomy in place Irritable bowel syndrome (IBS) Pulmonary embolism Home Medications calcium carbonate-vitamin D3 1 tab PO BID 12/13/17 [History Last Taken 12/09/18 08:00 1 tab] ferrous sulfate 65 mg PO BID 12/13/17 [History Last Taken 12/08/18 08:00 325 mg] loperamide 2 - 4 mg PO Q6H PRN PRN 12/13/17 [History Last Taken 12/08/18 14:00 2 mg] melatonin 3 mg PO QHS 12/13/17 [History Last Taken 12/08/18] zinc sulfate 220 mg PO QHS 12/13/17 [History Last Taken 12/08/18 22:00] acetaminophen 1,000 mg PO Q6H PRN PRN 12/21/17 [History Last Taken 12/09/18 09:00] ascorbic acid (vitamin C) [Vitamin C] 2,000 mg PO BID 12/21/17 [History Last Taken 12/09/18 08:00 2,000 mg] ergocalciferol (vitamin D2) [Vitamin D2] 50,000 unit PO Q7D 12/21/17 [History Last Taken 12/02/18 08:00 50,000 cap] magnesium oxide 400 mg PO BID 12/21/17 [History Last Taken 12/09/18 09:00] sertraline 100 mg PO DAILY 03/22/19 [History Last Taken Unknown] aspirin 81 mg PO DAILY@0800 04/22/20 [History Last Taken Unknown] omeprazole 1 cap PO DAILY #14 capsule. 04/22/20 [Rx Last Taken Unknown] Allergy/AdvReac Type Severity Reaction Status Date / Time amoxicillin AdvReac Nausea/Vom/ Verified 07/04/21 15:58 Diarrhea cephalexin AdvReac Nausea/Vom/ Verified 07/04/21 15:58 Diarrhea naproxen AdvReac Nausea/Vom/ Verified 07/04/21 15:58 Diarrhea sulfamethoxazole AdvReac Nausea/Vom/ Verified 07/04/21 15:58 [From Bactrim] Diarrhea trimethoprim [From Bactrim] AdvReac Nausea/Vom/ Verified 07/04/21 15:58 Diarrhea Social History Smoking Status: Never smoker ROS ROS ED Constitutional Constitutional ED: Denies chills or fever(s) Eyes Eyes: Denies change in vision or diplopia ENT ENT ED: Denies rhinorrhea or sore throat Cardiovascular Cardiovascular: Denies chest pain or palpitations Respiratory/Chest Respiratory/Chest: Denies cough or dyspnea Gastrointestinal Gastrointestinal: Reports as per HPI, abdominal pain, diarrhea and hematochezia; Denies nausea or vomiting Genitourinary Genitourinary ED: Denies dysuria or hematuria Musculoskeletal Musculoskeletal: Denies back pain or neck pain Integumentary Denies abscess or rash Neurologic Neurologic: Denies headache(s), paresthesias or weakness Psychiatric Psychiatric: Denies anxiety or suicidal thoughts EXAM Physical Exam Const Vital Signs: 07/04/21 15:59 07/04/21 18:31 07/04/21 19:31 Temperature 98.4 F Temperature Source Temporal Pulse Rate 90 94 88 Respiratory Rate 17 18 16 Blood Pressure 143/70 H 121/63 H 127/58 H Blood Pressure Mean 94 82 Pulse Ox 100 95 96 Oxygen Delivery Method Room Air Room Air Positive well nourished and well developed General Appearance ED: well developed and NAD Nutritional Appearance: morbidly obese HEENT Reports moist mucous membranes normocephalic and atraumatic Eyes PERRL and EOMs intact bilaterally Neck full ROM and supple Resp normal respiratory effort and clear to auscultation bilaterally Cardio regular rate, regular rhythm and no murmurs GI non-tender and non-distended GI Narrative: Benign abdomen. Ileostomy with mostly brownish-green stool in a couple of small areas with pink. The stoma itself looks healthy and there is no evidence of any disease or infected tissue, or anything that appears to be the source of the bleeding. Auscultation: normoactive bowel sounds Palpation: soft Back/Spine no CVA tenderness General Back: other FROM Extremity normal to inspection General Extremety ED: Negative for edema, pulses abnormal or tenderness General Extremity: Negative for edema or pulses abnormal Neuro oriented x3, CN's II-XII intact bilaterally and no sensory deficits noted Sensorium / Orientation: awake and alert Motor Exam: strength 5/5 throughout Skin no rashes or lesions noted and no wounds MDM MDM MDM Narrative Medical decision making narrative: Hemoglobin is actually higher than her recent/last reading, her INR is therapeutic at 2.5. She continued to have very minor bleeding in the emergency department, nothing heavy and her vital signs remained stable and clinically she did not have any other discomfort. I discussed with Dr. Sandhu who agreed to follow-up with her closely as an outpatient. I advised patient to stop her warfarin for now. Her DVT and PE were not diagnosed recently, and given the risk/benefit ratio here, I would discontinue it since she is actively bleeding from a noncompressible site. Since it is not life-threatening she is stable for follow-up, we discussed reasons to return she is comfortable with that plan. Lab Data Attestation: I reviewed the patient's lab results. Labs: Laboratory Results - last 24 hr 03/14/22 03/14/22 03/14/22 17:00 17:00 17:00 WBC 5.5 RBC 3.81 L Hgb 11.5 L Hct 35.1 L MCV 92.1 MCH 30.2 MCHC 32.8 RDW Std Deviation 50.7 H RDW Coeff of Julissa 15.2 H Plt Count 183 MPV 10.5 Immature Gran % (Auto) 0.500 Neut % (Auto) 72.6 H Lymph % (Auto) 19.3 Rusk % (Auto) 6.4 Eos % (Auto) 0.7 Baso % (Auto) 0.5 Absolute Neuts (auto) 4.0 Absolute Lymphs (auto) 1.06 Nucleated RBC % 0 PT 26.2 H INR 2.5 Sodium 138 Potassium 4.2 Chloride 106 Carbon Dioxide 28.0 Anion Gap 4 L BUN 17 Creatinine 0.98 Estim Creat Clear Calc 73.13 Est GFR (MDRD) Af Amer 79 Est GFR (MDRD) Non-Af 66 BUN/Creatinine Ratio 17.4 Glucose 85 Calcium 9.0 Discharge Plan Triage Chief Complaint: GI Bleed ED Provider: Livan Rebollar Dx/Rx/DC Orders Clinical Impression: Acute lower gastrointestinal bleeding, Intermittent right lower quadrant abdominal pain, Warfarin-induced coagulopathy Instructions: Bleeding Gastrointestinal Prescriptions: Continued melatonin 3 MG tablet 3 mg PO QHS RF: 0 zinc sulfate 220 MG capsule 220 mg PO QHS RF: 0 calcium carbonate-vitamin D3 1 EACH capsule 1 tab PO BID RF: 0 loperamide 2 MG capsule 2 - 4 mg PO Q6H PRN PRN (Reason: Diarrhea) RF: 0 ferrous sulfate 325 MG tablet 65 mg PO BID RF: 0 ergocalciferol (vitamin D2) [Vitamin D2] 50,000 UNIT capsule 50,000 unit PO Q7D RF: 0 ascorbic acid (vitamin C) [Vitamin C] 1,000 MG tablet 2,000 mg PO BID RF: 0 magnesium oxide 400 MG tablet 400 mg PO BID RF: 0 acetaminophen 500 MG tablet 1,000 mg PO Q6H PRN PRN (Reason: Headache) RF: 0 sertraline 25 MG tablet 100 mg PO DAILY RF: 0 aspirin 81 MG tablet,chewable 81 mg PO DAILY@0800 RF: 0 omeprazole 40 MG capsule,delayed release(DR/EC) 1 cap PO DAILY Qty: 14 RF: 0 Discontinued warfarin [Jantoven] 5 MG tablet 5 mg PO WESA RF: 0 warfarin 2 tablet 4 mg PO SUMOTUTHFR RF: 0 Primary Care Provider: Karly Bose Referrals: Karly Bose DO [Primary Care Provider] - Friend,DO Rene [STAFF PHYSICIAN] - As soon as possible (call for appt) Disposition Disposition: Home, Self Care
[2021-07-04 17:17] LABS: Absolute Lymphocyte Count 1.06 X10^3/uL (0.83-4.51); Basophil# 0.03 X10^3/uL; Basophil% 0.5 % (0-1); Eosinophil# 0.04 X10^3/uL; Eosinophils% 0.7 % (0-5); Hematocrit 35.1 % (37-47); Hemoglobin 11.5 g/dL (12.0-15.0); Lymphocyte # 1.06 X10^3/ul (0.83-4.51); Lymphocyte % 19.3 % (19-41); Mean Corp Hgb Conc 32.8 g/dL (32-36); Mean Corpuscular Hgb 30.2 pg (27.0-32.0); Mean Corpuscular Volume 92.1 fL (81-99); Mean Platelet Vol. 10.5 fl (6.2-12.0); Monocyte# 0.35 X10^3/uL; Monocyte% 6.4 % (0-10); NRBC Flagged by Analyzer 0 % (0-5); Neutrophil # 3.99 X10^3/uL (2.7-7.7); Neutrophil % 72.6 % (47-70); Platelet Count 183 K/mm3 (150-450); RBC Distribution Width CV 15.2 % (11.6-14.6); RBC Distribution Width SD 50.7 fl (35.1-43.9); Red Blood Count 3.81 M/mm3 (4.2-5.4); White Blood Count 5.5 K/mm3 (4.4-11.0)
[2021-07-04] MEDS: Dicyclomine 10 MG Capsule 20 MG PO (17:22)
[2021-07-04 17:32] LABS: Anion Gap 4 (5-15); BUN 17 mg/dL (7-18); BUN/Creat Ratio 17.4 RATIO (10-20); Chloride 106 mmol/L (98-107); Creatinine, Serum 0.98 mg/dL (0.55-1.02); EST Glomerular Filtration Rate 66 mL/min (>60); Est Glom Filt Rate - Afr Amer 79 mL/min (>60); Estimated Creatinine Clearance 73.13 ml/min; Glucose 85 mg/dL (74-106); Potassium 4.2 mmol/L (3.5-5.1); Sodium Level 138 mmol/L (136-145)
[2021-07-04 17:44] LABS: International Normalized Ratio 2.5; Prothrombin Time (Protime)PT. 26.2 SECONDS (11.7-14.9)
[2021-07-04 18:31] VITALS: BP 121/63; PULSE 94; RESP 18; O2SAT 95
[2021-07-04 19:31] VITALS: BP 127/58; PULSE 88; RESP 16; O2SAT 96
== END 2021-07-04 19:58 | disposition home or self-care (01) ==
PROVIDERS: Emergency Provider Emergency Medicine; PCP Family Medicine; Visit Provider Emergency Medicine
DX: D68.32 Hemorrhagic disorder due to extrinsic circulating anticoagulants (principal); Z93.2 Ileostomy status; T45.515A Adverse effect of anticoagulants, initial encounter; K92.1 Melena; K58.9 Irritable bowel syndrome, unspecified; R10.31 Right lower quadrant pain; Z79.01 Long term (current) use of anticoagulants; Z86.711 Personal history of pulmonary embolism
CPT/HCPCS: 80048; 85025; 85610; 99284; A4216

== ENCOUNTER 2021-07-15 10:30 | Outpatient (RCR) | payer MEDICARE, MEDICAID, SELFPAY ==
[2021-07-08 10:00] VITALS: BP 143/71; PULSE 104; RESP 18; TEMP 35.5; BMI 112.3
--- NOTE | 2021-07-08 13:59 | PCM.WC.HP ---
History of Present Illness Date of Service: 07/08/21 Chief Complaint: non-healing ulcer of abdominal incision site History of Wound: This is a 46-year-old morbidly obese female who presents today for treatment of a nonhealing ulcer of her abdomen at the site of surgical incision from total colectomy in December 2020. The incision was left to heal through secondary intention. She had a wound vac for several weeks after her surgery but when she was finally discharged from the hospital into a skilled facility in the end of January the wound vac was discontinued as the wound had healed enough to be able to be packed with silver alginate dressing. She has had healing of the incisional wound completely several different times from February and March but since April the area at the superior part of the incision has reopened and remains an ulcer. She has used Aquacel Extra dressings with changes daily covered with gauze or silicone bordered dressing for the last 12 weeks with minimal improvement. The area drains moderate to heavy at times. She is on chronic anticoagulation with warfarin and is obese. She has no odor, erythema or other signs of infection. [facility], [facility] Medical History Current use of shelter anticoagulation Ileostomy in place Irritable bowel syndrome (IBS) Pulmonary embolism Home Medications calcium carbonate-vitamin D3 1 tab PO BID 12/13/17 [History Last Taken 12/09/18 08:00 1 tab] ferrous sulfate 65 mg PO BID 12/13/17 [History Last Taken 12/08/18 08:00 325 mg] loperamide 2 - 4 mg PO Q6H PRN PRN 12/13/17 [History Last Taken 12/08/18 14:00 2 mg] melatonin 3 mg PO QHS 12/13/17 [History Last Taken 12/08/18] zinc sulfate 220 mg PO QHS 12/13/17 [History Last Taken 12/08/18 22:00] acetaminophen 1,000 mg PO Q6H PRN PRN 12/21/17 [History Last Taken 12/09/18 09:00] ascorbic acid (vitamin C) [Vitamin C] 2,000 mg PO BID 12/21/17 [History Last Taken 12/09/18 08:00 2,000 mg] ergocalciferol (vitamin D2) [Vitamin D2] 50,000 unit PO Q7D 12/21/17 [History Last Taken 12/02/18 08:00 50,000 cap] magnesium oxide 400 mg PO BID 12/21/17 [History Last Taken 12/09/18 09:00] aspirin 81 mg PO DAILY@0800 04/22/20 [History Last Taken Unknown] omeprazole 1 cap PO DAILY #14 capsule. 04/22/20 [Rx Last Taken Unknown] Bacillus coagulans [Probiotic (B. coagulans)] cell PO DAILY 07/08/21 [History Last Taken Unknown] alpha lipoic acid 200 mg PO DAILY 07/08/21 [History Last Taken Unknown] duloxetine 60 mg PO QHS 07/08/21 [History Last Taken Unknown] metoclopramide HCl [Reglan] 10 mg PO DAILY 07/08/21 [History Last Taken Unknown] tramadol 100 mg PO QHS PRN 07/08/21 [History Last Taken Unknown] Allergy/AdvReac Type Severity Reaction Status Date / Time amoxicillin AdvReac Nausea/Vom/ Verified 07/04/21 15:58 Diarrhea cephalexin AdvReac Nausea/Vom/ Verified 07/04/21 15:58 Diarrhea naproxen AdvReac Nausea/Vom/ Verified 07/04/21 15:58 Diarrhea sulfamethoxazole AdvReac Nausea/Vom/ Verified 07/04/21 15:58 [From Bactrim] Diarrhea trimethoprim [From Bactrim] AdvReac Nausea/Vom/ Verified 07/04/21 15:58 Diarrhea Social History Smoking Status: Never smoker ROS Constitutional Constitutional: Reports fatigue; Denies chills, difficulty sleeping or fever(s) Eyes Eyes: Denies blurry vision or loss of vision ENT HEENT: Denies dizziness, headache(s) or sore throat Cardiovascular Cardiovascular: Reports dyspnea on exertion and edema; Denies chest pain Respiratory/Chest Respiratory/Chest: Denies cough or wheezing Gastrointestinal Gastrointestinal: Reports loose stools; Denies abdominal pain, nausea or vomiting Genitourinary Genitourinary: Denies difficulty urinating, dysuria or polyuria Musculoskeletal Musculoskeletal: Reports arthralgias, back pain, difficulty walking, joint pain, joint stiffness, muscle weakness and myalgias Integumentary Integumentary: Reports skin ulcer Neurologic Neurologic: Denies confusion, headache(s) or memory loss Psychiatric Psychiatric: Denies homicidal ideation or suicidal ideation Endocrine Endocrinology: Denies polydipsia, polyphagia or polyuria Hematologic/Lymphatic Hematologic/Lymphatic: Reports easy bleeding and easy bruising Vital Signs Vital Signs Vital Signs: 07/08/21 10:00 Temperature 96 F L Temperature Source Temporal Pulse Rate 104 H Respiratory Rate 18 Blood Pressure 143/71 H Blood Pressure Mean 95 Blood Pressure Source Monitor Blood Pressure Position Sitting Blood Pressure Location Left Arm Weight Weight: 335 kg Body Mass Index (BMI) 112.3 Physical Exam Const alert, oriented x3 and no apparent distress General Appearance: cooperative, comfortable and well kempt Orientation / Consciousness: awake, oriented to person, oriented to place and oriented to time Nutritional Appearance: morbidly obese HEENT normocephalic and head/scalp atraumatic Mouth: oral and palatal mucosa normal Eyes PERRL General Eye: normal appearance of both eyes Neck no lymphadenopathy Resp normal respiratory effort Effort and Inspection: able to speak in complete sentences Auscultation: clear to auscultation bilaterally Cardio regular rate and regular rhythm GI soft to palpation Inspection: central obesity, ostomy present and pannus present Palpation: soft Extremity General Extremity: edema bilateral lower extremity Details: mild Skin General Skin Exam: venous stasis and dermatitis Wounds: wounds noted Wound Narrative: as in clinical panel Neuro oriented x3 and CN's II-XII intact bilaterally Psych mental status grossly normal, thought process normal, cooperative, affect normal and speech normal Debridement Note Debridement Note Wound debrided: abdomen Laterality: Not Applicable Type of Debridement: Excisional debridement Anesthesia Used: 4% Lidocaine Solution and 5% Lidocaine Gel Depth: Down to and including healthy tissue and in the subcutaneous layer Percentage of wound debrided: 100 Instrument Used: 3mm curette Tissue Removed: Yellow slough, devitalized tissue Severity: Fat Layer Exposed Amount of bleeding with debridement: Mild Bleeding Controlled with: Compression and gauze Patient tolerated procedure: Patient tolerated procedure well Post-Debridement Measurements and Additional Note: Post-Debridement Measurements/Treatment WC - Nurse 1 - General Ulcer Assessment Start: 07/08/21 09:50 Freq: Status: Active Protocol: [email or web address] Activity Type Activity Date Activity User E-Sign Co-Sign Detail Recorded Client Recorded Date Recorded By Document 07/08/21 10:00 DL [id number] 07/08/21 10:12 RB 07/08/21 10:00 - Today's Visit Information Type of service Initial Visit Arrival Mode Ambulatory, Walker Transfer Assistance None Patient Identification Verified (Name & Yes ) Patient Requires Transmission-Based No Precautions Height and Weight Height 5 ft 8 in Weight 335 kg Weight in Pounds 738.5 lbs Body Mass Index (BMI) 112.3 BMI Classification Obese BSA - Calvin 3.56 Vital Signs Temperature (97.8 F-99.1 F) 96 F L Temperature Source Temporal Pulse Rate (60-100) 104 H Pulse Location Monitor Respiratory Rate (12-18) 18 Respiratory rate source Observation Blood Pressure (90/60-120/80) 143/71 H Blood Pressure Mean 95 Source Monitor Position Sitting Blood Pressure Location Left Arm History Since Last Visit- (Skip if this is Patient's initial visit) Left Footwear Regular Shoe Right Footwear Regular Shoe Pain Scale: 0-10 Numeric Is Patient Pain Free? Yes - Nurse 1 - General Ulcer Measurement Start: 07/08/21 09:50 Freq: Status: Active Protocol: Activity Type Activity Date Activity User E-Sign Co-Sign Detail Recorded Client Recorded Date Recorded By Document 07/08/21 10:00 [id number] 07/08/21 10:12 07/08/21 10:00 Wound Center Nurse 1 13. Abdomen -Combined with other wound No -Current Size (cm) - Length 0.7 -Current Size (cm) - Width 0.8 -Current Size (cm) - Depth 0.1 -Total Square Cm 0.56 -Photo Taken Yes -Tunneling No -Undermining/Tunneling No -Circular Undermining No -Exudate Amt Small -Exudate Type Serosanguineous -Wound Margin Distinct, Outline Attached -Granulation Amt Medium (34-66%) -Granulation Quality [place] -Slough/Fibrin Yes -Necrosis Amt Small (1-33%) -Necrotic Tissue Type Adherent Slough -Structure Exposed N/A -Texture (Meg-wound Skin Appearance) Scarring -Moisture (Meg-wound Skin Appearance) Assessed -Color (Meg-wound Skin Appearance) Assessed -Temperature (Meg-wound Skin No Abnormality Appearance) (Pt Warm) -Tenderness on Palpation (Meg-wound No Skin Appearance) -Ulcer Cleansing Wound Cleanser -Foul Odor after Cleansing No -Anesthetic Used 5% Lidocaine Gel WC - Nurse 2 - General Ulcer CM Notes Start: 07/08/21 09:50 Freq: Status: Active Protocol: Activity Type Activity Date Activity User E-Sign Co-Sign Detail Recorded Client Recorded Date Recorded By Document 07/08/21 10:20 MW [id number] 07/08/21 10:30 MW 07/08/21 10:20 Wound Center Nurse 2 -Time 10:24 -Correct Patient Yes -Correct Side, Site, Position Yes -Correct Procedure Yes -Procedure Performed Yes -Type of Procedure Debridement -Clinical Debridement Subcutaneous -Tissue Removed Subcutaneous -Post Debridement (cm) - Length 1.2 -Post Debridement (cm) - Width 1.0 -Post Debridement (cm) - Depth 0.1 -Total Square (Post) (cm) 1.20 -Area of Debridement (cm) - Length 1.2 -Area of Debridement (cm) - Width 1.0 -Total Square (Area) (cm) 1.20 -Tunneling No -Undermining/Tunneling No -Circular Undermining No -Wound/Ulcer Outcome Not Healed -Ulcer Cleansing Rinsed/ Irrigated with Saline -Foul Odor after Cleansing No -Bioengineered Tissue No -Bleeding Controlled with Pressure -Treatment Response Procedure Tolerated Well -Offloading No -Debridement - Subq, 1st 20sq cm Yes Pain Scale: 0-10 Numeric Is Patient Pain Free? Yes - Nurse 3 - General Ulcer D/C NN Start: 07/08/21 09:50 Freq: Status: Active Protocol: Activity Type Activity Date Activity User E-Sign Co-Sign Detail Recorded Client Recorded Date Recorded By Document 07/08/21 10:51 RB [id number] 07/08/21 10:52 RB 07/08/21 10:51 Wound Care Nurse 3 13. Abdomen -Ulcer Cleansing Wound Cleanser -Primary Dressing Applied Mepilex Border, Promogran -Mepilex Border 2 -Promogran 2 Treatment Response Procedure Tolerated Well Pain Scale: 0-10 Numeric Is Patient Pain Free? Yes - Visit Discharge Discharge Condition Stable Ambulatory Status Ambulatory, Walker Transportation Private Auto Medication Reconcilliation completed & No provided to patient/care provider Clinical Summary of Care Provided Yes Assessment/Plan Assessment/Plan (1) Venous insufficiency of both lower extremities: CODE(S): I87.2 - Venous insufficiency (chronic) (peripheral) (2) History of pulmonary embolism: CODE(S): Z86.711 - Personal history of pulmonary embolism (3) Morbid obesity: CODE(S): E66.01 - Morbid (severe) obesity due to excess calories (4) Arthritis: CODE(S): M19.90 - Unspecified osteoarthritis, unspecified site (5) Status post club foot correction at : CODE(S): Z98.890 - Other specified postprocedural states; Z87.76 - Personal history of (corrected) congenital malformations of integument, limbs and musculoskeletal system (6) Delayed wound healing: CODE(S): T14.8XXD - Other injury of unspecified body region, subsequent encounter (7) JOSEPH (obstructive sleep apnea): CODE(S): G47.33 - Obstructive sleep apnea (adult) (pediatric) (8) Ileostomy in place: CODE(S): Z93.2 - Ileostomy status (9) Ulcer of abdomen wall with fat layer exposed: CODE(S): L98.492 - Non-pressure chronic ulcer of skin of other sites with fat layer exposed (10) Postoperative wound dehiscence: CODE(S): T81.31XA - Disruption of external operation (surgical) wound, not elsewhere classified, initial encounter QUALIFIERS: Encounter type: subsequent encounter Qualified Code(s): T81.31XD - Disruption of external operation (surgical) wound, not elsewhere classified, subsequent encounter PLAN: Melanie's ulcer of her abdomen was evaluated and debrided today at the wound healing center. Wound culture was not performed as there are no obvious signs of infection. She has had labs approx. 2 months ago to evaluate her nutrition and for diabetes which nutrition is adequate and A1C was lass than 6.0%. She has been treating her ulcer with standard wound care for > 8 weeks at home under my guidance and observation approx. monthly without being able to remain healed particularly over the last 10 weeks. Will have her change dressings to Promogran covered with silicone bordered foam dressing. Due to her inability to heal with standard wound care, I believe that it is medically necessary for Melanie to be treated with an advanced wound healing product such as Epifix in order to heal and keep her ulcer healed. We discussed offloading of the site which she has been doing and we also encouraged increased protein intake, weight loss and proper cleansing of the ulcer to facilitate healing. She was advised to call if there are any increased odor, pain, drainage or erythema. She will return in 1 week for wound care.
[2021-07-15 10:48] VITALS: BP 151/68; PULSE 97; RESP 18; TEMP 36.6; BMI 112.3
--- NOTE | 2021-07-15 13:33 | PN.PCM_ITS ---
History of Present Illness Date of Service: 07/15/21 Chief Complaint: non-healing ulcer of abdominal incision site History of Wound: This is a 46-year-old morbidly obese female who presents today for treatment of a nonhealing ulcer of her abdomen at the site of surgical incision from total colectomy in December 2020. The incision was left to heal through secondary intention. She had a wound vac for several weeks after her surgery but when she was finally discharged from the hospital into a skilled facility in the end of January the wound vac was discontinued as the wound had healed enough to be able to be packed with silver alginate dressing. She has had healing of the incisional wound completely several different times from February and March but since April the area at the superior part of the incision has reopened and remains an ulcer. She has used Aquacel Extra dressings with changes daily covered with gauze or silicone bordered dressing for the last 12 weeks with minimal improvement. The area drains moderate to heavy at times. She is on chronic anticoagulation with warfarin and is obese. She has no odor, erythema or other signs of infection. Subjective Nadja Navarro returns today for follow up of nonhealing ulcer of her abdominal incision. She tolerated treatment with the Promogran and silicone border dressing. She has had improvement in the ulcer. She denies fever, chills, erythema, odor. Objective Data Objective Data Vital Signs: Vital Signs Temp Pulse Resp BP 97.8 F 97 18 151/68 H 07/15/21 10:48 07/15/21 10:48 07/15/21 10:48 07/15/21 10:48 Weight: 335 kg Body Mass Index (BMI) 112.3 Physical Exam Const alert, oriented x3 and no apparent distress General Appearance: cooperative, comfortable and well kempt Orientation / Consciousness: awake, oriented to person, oriented to place and oriented to time Nutritional Appearance: morbidly obese HEENT normocephalic and head/scalp atraumatic Eyes PERRL General Eye: normal appearance of both eyes Neck no lymphadenopathy Resp normal respiratory effort Effort and Inspection: able to speak in complete sentences Auscultation: clear to auscultation bilaterally Cardio regular rate and regular rhythm GI soft to palpation Inspection: central obesity, ostomy present and pannus present Palpation: soft Extremity General Extremity: edema bilateral lower extremity Details: mild Skin General Skin Exam: venous stasis and dermatitis Wounds: wounds noted Wound Narrative: as in clinical panel Neuro oriented x3 and CN's II-XII intact bilaterally Psych mental status grossly normal, thought process normal, cooperative, affect normal and speech normal Debridement Note Debridement Note Wound debrided: abdomen Laterality: Not Applicable Type of Debridement: Selective debridement Anesthesia Used: 4% Lidocaine Solution Depth: Down to and including healthy tissue and in the subcutaneous layer Percentage of wound debrided: 100 Instrument Used: 3mm curette Tissue Removed: Yellow slough, devitalized tissue Severity: Fat Layer Exposed Amount of bleeding with debridement: Mild Bleeding Controlled with: Compression and gauze Patient tolerated procedure: Patient tolerated procedure well Post-Debridement Measurements and Additional Note: Post-Debridement Measurements/Treatment - Nurse 1 - General Ulcer Assessment Start: 07/08/21 09:50 Freq: Status: Active Protocol: NILTON Activity Type Activity Date Activity User E-Sign Co-Sign Detail Recorded Client Recorded Date Recorded By Document 07/08/21 10:00 [id number] 07/08/21 10:12 RB Document 07/15/21 10:48 RB [id number] 07/15/21 10:54 RB 07/08/21 07/15/21 10:00 10:48 - Today's Visit Information Type of service Initial Visit Follow-up Visit (Physician/IOS ARCHITECT ) Arrival Mode Ambulatory, Ambulatory, Walker Walker Transfer Assistance None None Patient Identification Verified (Name & Yes Yes ) Patient Requires Transmission-Based No No Precautions Height and Weight Height 5 ft 8 in Weight 335 kg Weight in Pounds 738.5 lbs Body Mass Index (BMI) 112.3 112.3 BMI Classification Obese Obese BSA - Calvin 3.56 Vital Signs Temperature (97.8 F-99.1 F) 96 F L 97.8 F Temperature Source Temporal Temporal Pulse Rate (60-100) 104 H 97 Pulse Location Monitor Monitor Respiratory Rate (12-18) 18 18 Respiratory rate source Observation Observation Blood Pressure (90/60-120/80) 143/71 H 151/68 H Blood Pressure Mean (mm Hg) 95 95 Source Monitor Monitor Position Sitting Sitting Blood Pressure Location Left Arm Left Arm Have you changed medications since your No last visit? Any new allergies or adverse reactions No Had a fall/change in ADL's that may No increase risk of falls Signs or symptoms of abuse and/or No neglect since last visit Have you been in the hospital since your No last visit? Has dressing in place as prescribed Yes Has compression in place as prescribed No Has offloadiing in place as prescribed No Experienced any changes in pain level or No management History Since Last Visit- (Skip if this is Patient's initial visit) Left Footwear Regular Shoe Regular Shoe Right Footwear Regular Shoe Regular Shoe Pain Scale: 0-10 Numeric Is Patient Pain Free? Yes Yes - Nurse 1 - General Ulcer Measurement Start: 07/08/21 09:50 Freq: Status: Active Protocol: Activity Type Activity Date Activity User E-Sign Co-Sign Detail Recorded Client Recorded Date Recorded By Document 07/08/21 10:00 RB [id number] 07/08/21 10:12 RB Document 07/15/21 10:48 RB [id number] 07/15/21 10:54 RB 07/08/21 07/15/21 10:00 10:48 Wound Center Nurse 1 13. Abdomen -Combined with other wound No No -Current Size (cm) - Length 0.7 1 -Current Size (cm) - Width 0.8 0.8 -Current Size (cm) - Depth 0.1 0.1 -Total Square Cm 0.56 0.8 -Photo Taken Yes -Tunneling No No -Undermining/Tunneling No No -Circular Undermining No No -Exudate Amt Small Medium -Exudate Type Serosanguineous Serosanguineous -Wound Margin Distinct, Distinct, Outline Outline Attached Attached -Granulation Amt Medium (34-66%) Medium (34-66%) -Granulation Quality [place] -Slough/Fibrin Yes Yes -Necrosis Amt Small (1-33%) Small (1-33%) -Necrotic Tissue Type Adherent Slough Adherent Slough -Structure Exposed N/A N/A -Texture (Meg-wound Skin Appearance) Scarring Scarring -Moisture (Meg-wound Skin Appearance) Assessed Assessed -Color (Meg-wound Skin Appearance) Assessed Assessed -Temperature (Meg-wound Skin No Abnormality No Abnormality Appearance) (Pt Warm) (Pt Warm) -Tenderness on Palpation (Meg-wound No No Skin Appearance) -Ulcer Cleansing Wound Cleanser Wound Cleanser -Foul Odor after Cleansing No No -Anesthetic Used 5% Lidocaine 5% Lidocaine Gel Gel - Nurse 2 - General Ulcer CM Notes Start: 07/08/21 09:50 Freq: Status: Active Protocol: Activity Type Activity Date Activity User E-Sign Co-Sign Detail Recorded Client Recorded Date Recorded By Document 07/08/21 10:20 MW [id number] 07/08/21 10:30 MW Document 07/15/21 11:21 MW [id number] 07/15/21 11:36 MW 07/08/21 07/15/21 10:20 11:21 Wound Center Nurse 2 13. Abdomen -Time 10:24 11:21 -Correct Patient Yes Yes -Correct Side, Site, Position Yes Yes -Correct Procedure Yes Yes -Procedure Performed Yes Yes -Type of Procedure Debridement Debridement -Clinical Debridement Subcutaneous Subcutaneous -Tissue Removed Subcutaneous Subcutaneous -Post Debridement (cm) - Length 1.2 0.7 -Post Debridement (cm) - Width 1.0 0.5 -Post Debridement (cm) - Depth 0.1 0.1 -Total Square (Post) (cm) 1.20 0.35 -Area of Debridement (cm) - Length 1.2 0.7 -Area of Debridement (cm) - Width 1.0 0.5 -Total Square (Area) (cm) 1.20 0.35 -Tunneling No No -Undermining/Tunneling No No -Circular Undermining No No -Wound/Ulcer Outcome Not Healed Not Healed -Ulcer Cleansing Rinsed/ Rinsed/ Irrigated with Irrigated with Saline Saline -Foul Odor after Cleansing No No -Bioengineered Tissue No Yes -Type of Bioengineered Tissue Epifix 18mm Disc -Expiration Date 03/23/26 -Product Lot Number [id number] -Percent Used 100 -Lot number of Saline Used [id number] -Bleeding Controlled with Pressure Pressure -Treatment Response Procedure Procedure Tolerated Well Tolerated Well -Offloading No No -Assistive Device(s) Walker -Debridement - Subq, 1st 20sq cm Yes No -Apply Skin Sub - 1st 25 sq cm - Legs 1 -Epifix 18mm Disc 3 Pain Scale: 0-10 Numeric Is Patient Pain Free? Yes Yes WC - Nurse 3 - General Ulcer D/C NN Start: 07/08/21 09:50 Freq: Status: Active Protocol: Activity Type Activity Date Activity User E-Sign Co-Sign Detail Recorded Client Recorded Date Recorded By Document 07/08/21 10:51 RB [id number] 07/08/21 10:52 RB Document 07/15/21 11:36 MW [id number] 07/15/21 11:37 MW Edit Result 07/15/21 11:36 MW (1) [id number] 07/15/21 11:42 MW (1) 13. Abdomen - Primary Dressing Applied Mepilex Border => Mepilex Border, => Promogran - Promogran => 1 07/08/21 07/15/21 10:51 11:36 Wound Care Nurse 3 13. Abdomen -Ulcer Cleansing Wound Cleanser Not Cleansed -Primary Dressing Applied Mepilex Border, Mepilex Border, Promogran Promogran -Mepilex Border 2 1 -Promogran 2 1 Treatment Response Procedure Procedure Tolerated Well Tolerated Well Pain Scale: 0-10 Numeric Is Patient Pain Free? Yes Yes Teaching: Wound Center Dressing Your Wound -Person Taught Patient -Teaching Method Discussion, Demonstration -Response to teaching Verbalize understanding WC - Visit Discharge Discharge Condition Stable Stable Ambulatory Status Ambulatory, Ambulatory, Walker Walker Transportation Private Auto Private Auto Accompanied by SELF Medication Reconcilliation completed & No No provided to patient/care provider Clinical Summary of Care Provided Yes Yes Assessment/Plan Assessment/Plan (1) Venous insufficiency of both lower extremities: CODE(S): I87.2 - Venous insufficiency (chronic) (peripheral) (2) History of pulmonary embolism: CODE(S): Z86.711 - Personal history of pulmonary embolism (3) Morbid obesity: CODE(S): E66.01 - Morbid (severe) obesity due to excess calories (4) Arthritis: CODE(S): M19.90 - Unspecified osteoarthritis, unspecified site (5) Status post club foot correction at : CODE(S): Z98.890 - Other specified postprocedural states; Z87.76 - Perso nal history of (corrected) congenital malformations of integument, limbs and musculoskeletal system (6) Delayed wound healing: CODE(S): T14.8XXD - Other injury of unspecified body region, subsequent encounter (7) JOSEPH (obstructive sleep apnea): CODE(S): G47.33 - Obstructive sleep apnea (adult) (pediatric) (8) Ileostomy in place: CODE(S): Z93.2 - Ileostomy status (9) Ulcer of abdomen wall with fat layer exposed: CODE(S): L98.492 - Non-pressure chronic ulcer of skin of other sites with fat layer exposed (10) Postoperative wound dehiscence: CODE(S): T81.31XA - Disruption of external operation (surgical) wound, not elsewhere classified, initial encounter QUALIFIERS: Encounter type: subsequent encounter Qualified Code(s): T81.31XD - Disruption of external operation (surgical) wound, not elsewhere classified, subsequent encounter PLAN: Melanie's ulcer of her abdomen was evaluated and debrided today at the wound healing center. Wound culture was not performed as there are no obvious signs of infection. She has had labs approx. 2 months ago to evaluate her nutrition and for diabetes which nutrition is adequate and A1C was lass than 6.0%. She has been treating her ulcer with standard wound care for > 8 weeks at home under my guidance and observation approx. monthly without being able to remain healed particularly over the last 10 weeks. Epifix was approved by her insurance and was applied today per radiation control technician guidelines and rehydrated with hydrogel and covered with wound veil and then silicone foam border dressing. Will have her change dressings to Promogran covered with silicone bordered foam dressing if the bandage gets wet or soiled. Due to her inability to heal with standard wound care, I believe that it is medically necessary for Melanie to be treated with an advanced wound healing product such as Epifix in order to heal and keep her ulcer healed. We discussed offloading of the site which she has been doing and we also encouraged increased protein intake, weight loss and proper cleansing of the ulcer to facilitate healing. She was advised to call if there are any increased odor, pain, drainage or erythema. She will return in 1 week for wound care.
== END 2021-07-21 23:59 | disposition home or self-care (01) ==
LOC: WC 10:30
PROVIDERS: PCP Family Medicine; Visit Provider Family Medicine
DX: T81.31XA Disruption of external operation (surgical) wound, not elsewhere classified, initial encounter (principal); L98.492 Non-pressure chronic ulcer of skin of other sites with fat layer exposed; E66.01 Morbid (severe) obesity due to excess calories; I87.2 Venous insufficiency (chronic) (peripheral); G47.33 Obstructive sleep apnea (adult) (pediatric); M19.90 Unspecified osteoarthritis, unspecified site; Z93.2 Ileostomy status; Z79.82 Long term (current) use of aspirin; Z79.01 Long term (current) use of anticoagulants; K58.9 Irritable bowel syndrome, unspecified; Z86.711 Personal history of pulmonary embolism; Z68.45 Body mass index [BMI] 70 or greater, adult; Z98.890 Other specified postprocedural states
CPT/HCPCS: 11042; 15271; 99213; Q4186; G0463

== ENCOUNTER 2021-07-28 13:42 | Outpatient (CLI) | payer MEDICARE, MEDICAID, SELFPAY ==
--- NOTE | 2021-07-28 13:45 | RAD_ITS ---
STUDY: X-RAY - LUMBAR SPINE REASON FOR EXAM: Female, 46 years old. BACK PAIN TECHNIQUE: 5 view(s) of the lumbar spine were obtained. COMPARISON: None FINDINGS: Normal lumbar lordosis. There is no substantial scoliosis. Grade 1 spondylolisthesis L3-L4 and L4-L5 due to facet arthropathy. There is multilevel endplate spondylosis of the lumbar vertebrae. There is multi-level degenerative disc disease with multi-level disc space narrowing. There is no demonstrated fracture. Multilevel facet arthropathy predominantly in the lower levels. Degenerative changes of the left hip. Right lower quadrant ostomy. The soft tissue structures are unremarkable. RAD/L/S Spine Min 4 Views IMPRESSION: Degenerative disc disease and facet arthropathy. Electronically Signed: Emil Soto MD ([place]) at 14:32 EDT ,
--- NOTE | 2021-07-28 13:45 | RAD_ITS ---
STUDY: X-RAY - RIGHT FOOT CLINICAL: Female, 46 years old. RIGHT GREAT TOE/FOOT PAIN TECHNIQUE: 3 view(s) of the foot. COMPARISON: None. FINDINGS: There is an enthesophyte involving the posterior superior calcaneus at the site of insertion of the Achilles tendon. Normal visualized subtalar, talonavicular, calcaneocuboid, tarsal and tarsometatarsal articulations. Normal metatarsi. There is degenerative arthrosis of the metatarsophalangeal joint of the hallux . Normal tibial and fibular sesamoid bones. Normal interphalangeal joint of the great toe. Normal phalanges of the great toe. Normal second through fifth metatarsophalangeal joints. Normal interphalangeal joints and phalanges of the lesser toes. There are dermal or venous calcifications of the lower leg. RAD/Foot min 3 Views IMPRESSION: Mild degenerative changes of first MTP joint. Electronically Signed: Emil Soto MD ([place]) at 14:29 EDT ,
--- NOTE | 2021-07-28 13:45 | RAD_ITS ---
STUDY: X-RAY - PELVIS AND BILATERAL HIPS REASON FOR EXAM: Female, 46 years old. HIP PAIN TECHNIQUE: AP view of the pelvis.? 2 views of the right hip, and 2 views of the left hip were obtained. COMPARISON: 07/28/2020 FINDINGS: There is a non-specific bowel gas pattern. Normal visualized soft tissue structures. There is narrowing with cortical sclerosis and osteophyte formation of the sacroiliac joint consistent with degenerative osteoarthritic changes. Normal bilateral superior and inferior pubic rami. Normal pubic symphysis. Normal bilateral ischial tuberosities. There are osteoarthritic changes of the right femoral head with marginal osteophyte formation. There is osteoarthritic spur formation of the right acetabular rim. There is moderate articular joint space narrowing of the right hip. There are osteoarthritic changes of the left femoral head with marginal osteophyte formation and subchondral cysts. There is osteoarthritic spur formation of the left acetabular rim. There is severe articular joint space narrowing of the left hip. RAD/Hips B/L min 2 views w/ Pelvis IMPRESSION: Left worse than right hip osteoarthrosis, progressed since prior study. Electronically Signed: Emil Soto MD ([place]) at 15:10 EDT Reading Location ID and State: [facility] / ID , Service support ,
--- NOTE | 2021-07-28 13:45 | RAD_ITS ---
STUDY: X-RAY - THORACIC SPINE REASON FOR EXAM: Female, 46 years old. BACK PAIN TECHNIQUE: 3 view(s) of the thoracic spine were obtained. COMPARISON: None. FINDINGS: Normal kyphosis of the thoracic spine. There is no substantial scoliosis. There is multilevel endplate spondylosis of the thoracic vertebrae. Normal disc space heights. The soft tissue structures are unremarkable. RAD/Thoracic Spine 3 Views IMPRESSION: Thoracic spondylosis. Electronically Signed: Emil Soto MD ([place]) at 14:30 EDT ,
== END 2021-07-28 23:59 | disposition home or self-care (01) ==
LOC: MTRAD 13:44
PROVIDERS: PCP Family Medicine; Referring Provider Family Medicine; Visit Provider Family Medicine
DX: M51.35 Other intervertebral disc degeneration, thoracolumbar region (principal); M16.0 Bilateral primary osteoarthritis of hip; M79.671 Pain in right foot
CPT/HCPCS: 72072; 72110; 73521; 73630

== ENCOUNTER 2021-08-19 11:00 | Outpatient (RCR) | payer MEDICARE, MEDICAID, SELFPAY ==
[2021-07-22 00:52] VITALS: BP 151/68; PULSE 97; RESP 18; TEMP 36.6; BMI 112.3
[2021-07-22 11:56] VITALS: BP 162/99; PULSE 84; RESP 18; TEMP 36.1; BMI 112.3
--- NOTE | 2021-07-22 14:54 | PCM.WC.PN ---
History of Present Illness Date of Service: 07/22/21 Chief Complaint: non-healing ulcer of abdominal incision site History of Wound: This is a 46-year-old morbidly obese female who presents today for treatment of a nonhealing ulcer of her abdomen at the site of surgical incision from total colectomy in December 2020. The incision was left to heal through secondary intention. She had a wound vac for several weeks after her surgery but when she was finally discharged from the hospital into a skilled facility in the end of January the wound vac was discontinued as the wound had healed enough to be able to be packed with silver alginate dressing. She has had healing of the incisional wound completely several different times from February and March but since April the area at the superior part of the incision has reopened and remains an ulcer. She has used Aquacel Extra dressings with changes daily covered with gauze or silicone bordered dressing for the last 12 weeks with minimal improvement. The area drains moderate to heavy at times. She is on chronic anticoagulation with warfarin and is obese. She has no odor, erythema or other signs of infection. Subjective Subjective Melanie returns today for follow up of nonhealing ulcer of her abdominal incision. She tolerated treatment with Epifix and silicone border dressing. She has had improvement in the ulcer. She denies fever, chills, erythema, odor. Objective Data Objective Data Vital Signs: Vital Signs Temp Pulse Resp BP 97 F L 84 18 162/99 H 07/22/21 11:56 07/22/21 11:56 07/22/21 11:56 07/22/21 11:56 Oxygen Delivery Method Room Air Weight: 335 kg Body Mass Index (BMI) 112.3 Physical Exam Const alert, oriented x3 and no apparent distress General Appearance: cooperative and comfortable HEENT normocephalic and head/scalp atraumatic Resp normal respiratory effort Effort and Inspection: able to speak in complete sentences Cardio regular rate and regular rhythm Extremity General Extremity: edema bilateral lower extremity Details: moderate Skin Wounds: wounds noted Wound Narrative: as in clinical panel Psych mental status grossly normal, thought process normal, cooperative, affect normal and speech normal Debridement Note Debridement Note Wound debrided: Abdomen Laterality: Not Applicable Type of Debridement: Selective debridement Anesthesia Used: 4% Lidocaine Solution Depth: Down to and including healthy tissue and in the subcutaneous layer Percentage of wound debrided: 100 Instrument Used: - (gauze) Tissue Removed: Yellow slough, devitalized tissue Severity: Fat Layer Exposed Amount of bleeding with debridement: Mild Bleeding Controlled with: Compression and gauze Patient tolerated procedure: Patient tolerated procedure well Post-Debridement Measurements and Additional Note: Post-Debridement Measurements/Treatment - Nurse 1 - General Ulcer Assessment Start: 07/22/21 11:56 Freq: Status: Active Protocol: NILTON Activity Type Activity Date Activity User E-Sign Co-Sign Detail Recorded Client Recorded Date Recorded By Document 07/22/21 11:56 W[place] [id number] 07/22/21 12:00 W[place] 07/22/21 11:56 WC - Today's Visit Information Type of service Follow-up Visit (Physician/PRINTED PRODUCTS ASSEMBLER ) Arrival Mode Walker Accompanied by self Patient Identification Verified (Name & Yes ) Height and Weight Body Mass Index (BMI) 112.3 BMI Classification Obese Vital Signs Temperature (97.8 F-99.1 F) 97 F L Temperature Source Temporal Pulse Rate (60-100) 84 Pulse Location Monitor Respiratory Rate (12-18) 18 Respiratory rate source Observation Oxygen Delivery Method Room Air Blood Pressure (90/60-120/80) 162/99 H Blood Pressure Mean (mm Hg) 120 Source Monitor History Since Last Visit- (Skip if this is Patient's initial visit) Has dressing in place as prescribed Yes Has compression in place as prescribed Yes Has offloadiing in place as prescribed Yes Experienced any changes in pain level or Yes management Left Footwear Regular Shoe Right Footwear Regular Shoe Pain Scale: 0-10 Numeric Is Patient Pain Free? Yes Estefani Nurse 1 - General Ulcer Measurement Start: 07/22/21 11:56 Freq: Status: Active Protocol: Activity Type Activity Date Activity User E-Sign Co-Sign Detail Recorded Client Recorded Date Recorded By Document 07/22/21 11:56 W[place] [id number] 07/22/21 12:00 W[place] 07/22/21 11:56 Wound Center Nurse 1 13. Abdomen -Current Size (cm) - Length 0.1 -Current Size (cm) - Width 0.1 -Current Size (cm) - Depth 0.1 -Total Square Cm 0.01 -Tunneling No -Undermining/Tunneling No -Circular Undermining No -Exudate Amt Small -Exudate Type Serosanguineous -Wound Margin Distinct, Outline Attached -Granulation Amt Medium (34-66%) -Granulation Quality [place] -Slough/Fibrin Yes -Necrosis Amt Medium (34-66%) -Necrotic Tissue Type Adherent Slough -Structure Exposed N/A -Texture (Meg-wound Skin Appearance) Assessed, Scarring -Moisture (Meg-wound Skin Appearance) Assessed -Color (Meg-wound Skin Appearance) Assessed -Temperature (Meg-wound Skin No Abnormality Appearance) (Pt Warm) -Tenderness on Palpation (Meg-wound Yes Skin Appearance) -Ulcer Cleansing Wound Cleanser -Foul Odor after Cleansing No -Anesthetic Used 5% Lidocaine Gel WC - Nurse 2 - General Ulcer CM Notes Start: 07/22/21 11:56 Freq: Status: Active Protocol: Activity Type Activity Date Activity User E-Sign Co-Sign Detail Recorded Client Recorded Date Recorded By Document 07/22/21 12:47 MW [id number] 07/22/21 12:57 MW 07/22/21 12:47 Wound Center Nurse 2 -Time 12:54 -Correct Patient Yes -Correct Side, Site, Position Yes -Correct Procedure Yes -Procedure Performed Yes -Type of Procedure Debridement -Clinical Debridement Subcutaneous -Tissue Removed Subcutaneous -Post Debridement (cm) - Length 0.3 -Post Debridement (cm) - Width 0.2 -Post Debridement (cm) - Depth 0.1 -Total Square (Post) (cm) 0.06 -Area of Debridement (cm) - Length 0.3 -Area of Debridement (cm) - Width 0.2 -Total Square (Area) (cm) 0.06 -Tunneling No -Undermining/Tunneling No -Circular Undermining No -Wound/Ulcer Outcome Not Healed -Ulcer Cleansing Rinsed/ Irrigated with Saline -Foul Odor after Cleansing No -Bioengineered Tissue Yes -Type of Bioengineered Tissue Epifix 18mm Disc -Expiration Date 05/24/26 -Product Lot Number [id number] -Percent Used 100 -Lot number of Saline Used [id number] -Bleeding Controlled with Pressure -Treatment Response Procedure Tolerated Well -Offloading No -Debridement - Subq, 1st 20sq cm No -Apply Skin Sub - 1st 25 sq cm - Legs 1 -Epifix 18mm Disc 3 Pain Scale: 0-10 Numeric Is Patient Pain Free? Yes WC - Nurse 3 - General Ulcer D/C NN Start: 07/22/21 11:56 Freq: Status: Active Protocol: Activity Type Activity Date Activity User E-Sign Co-Sign Detail Recorded Client Recorded Date Recorded By Document 07/22/21 13:01 RB [id number] 07/22/21 13:02 RB 07/22/21 13:01 Wound Care Nurse 3 13. Abdomen -Primary Dressing Applied Mepilex Border -Mepilex Border 1 Treatment Response Procedure Tolerated Well Pain Scale: 0-10 Numeric Is Patient Pain Free? Yes WC - Visit Discharge Discharge Condition Stable Ambulatory Status Ambulatory, Walker Transportation Private Auto Medication Reconcilliation completed & No provided to patient/care provider Clinical Summary of Care Provided Yes Assessment/Plan Assessment/Plan (1) Postoperative wound dehiscence: CODE(S): T81.31XA - Disruption of external operation (surgical) wound, not elsewhere classified, initial encounter QUALIFIERS: Encounter type: subsequent encounter Qualified Code(s): T81.31XD - Disruption of external operation (surgical) wound, not elsewhere classified, subsequent encounter (2) Ulcer of abdomen wall with fat layer exposed: CODE(S): L98.492 - Non-pressure chronic ulcer of skin of other sites with fat layer exposed (3) Ileostomy in place: CODE(S): Z93.2 - Ileostomy status (4) Morbid obesity: CODE(S): E66.01 - Morbid (severe) obesity due to excess calories (5) Lymphedema: CODE(S): I89.0 - Lymphedema, not elsewhere classified (6) Walking difficulty due to ankle and foot: CODE(S): R26.2 - Difficulty in walking, not elsewhere classified (7) JOSEPH (obstructive sleep apnea): CODE(S): G47.33 - Obstructive sleep apnea (adult) (pediatric) PLAN: Melanie's ulcer of her abdomen was evaluated and debrided today at the wound healing center. Wound culture was not performed as there are no obvious signs of infection. She has had labs approx. 2 months ago to evaluate her nutrition and for diabetes which nutrition is adequate and A1C was lass than 6.0%. She has been treating her ulcer with standard wound care for > 8 weeks at home under my guidance and observation approx. monthly without being able to remain healed particularly over the last 10 weeks. Epifix #2 was applied today per assistant toddler teacher guidelines and rehydrated with hydrogel and covered with wound veil and then silicone foam border dressing. Will have her change dressings to Promogran covered with silicone bordered foam dressing if the bandage gets wet or soiled. Due to her inability to heal with standard wound care, I believe that it is medically necessary for Melanie to be treated with an advanced wound healing product such as Epifix in order to heal and keep her ulcer healed. We discussed offloading of the site which she has been doing and we also encouraged increased protein intake, weight loss and proper cleansing of the ulcer to facilitate healing. She was advised to call if there are any increased odor, pain, drainage or erythema. She will return in 1 week for wound care.
[2021-08-12 10:37] VITALS: BP 150/77; PULSE 102; RESP 18; TEMP 36.1; BMI 112.3
--- NOTE | 2021-08-12 14:03 | PCM.WC.PN ---
History of Present Illness Date of Service: 08/12/21 Chief Complaint: non-healing ulcer of abdominal incision site History of Wound: This is a 46-year-old morbidly obese female who presents today for treatment of a nonhealing ulcer of her abdomen at the site of surgical incision from total colectomy in December 2020. The incision was left to heal through secondary intention. She had a wound vac for several weeks after her surgery but when she was finally discharged from the hospital into a skilled facility in the end of January the wound vac was discontinued as the wound had healed enough to be able to be packed with silver alginate dressing. She has had healing of the incisional wound completely several different times from February and March but since April the area at the superior part of the incision has reopened and remains an ulcer. She has used Aquacel Extra dressings with changes daily covered with gauze or silicone bordered dressing for the last 12 weeks with minimal improvement. The area drains moderate to heavy at times. She is on chronic anticoagulation with warfarin and is obese. She has no odor, erythema or other signs of infection. Subjective Subjective Melanie returns today for follow up of nonhealing ulcer of her abdominal incision. It had healed after 2 applications of Epifix but re-opened last week. She has been using silvadene since it reopened. She denies fever, chills, erythema, odor. Objective Data Objective Data Vital Signs: Vital Signs Temp Pulse Resp BP 97 F L 102 H 18 150/77 H 08/12/21 10:37 08/12/21 10:37 08/12/21 10:37 08/12/21 10:37 Oxygen Delivery Method Room Air Weight: 335 kg Body Mass Index (BMI) 112.3 Physical Exam Const alert, oriented x3 and no apparent distress General Appearance: cooperative and comfortable HEENT normocephalic and head/scalp atraumatic Resp normal respiratory effort Effort and Inspection: able to speak in complete sentences Cardio regular rate and regular rhythm Extremity General Extremity: edema bilateral lower extremity Details: moderate Skin Wounds: wounds noted Wound Narrative: as in clinical panel Psych mental status grossly normal, thought process normal, cooperative, affect normal and speech normal Debridement Note Debridement Note Wound debrided: abdomen Laterality: Not Applicable Type of Debridement: Excisional debridement Anesthesia Used: 4% Lidocaine Solution and 5% Lidocaine Gel Depth: Down to and including healthy tissue and in the subcutaneous layer Percentage of wound debrided: 100 Instrument Used: 3mm curette Tissue Removed: Yellow slough, devitalized tissue Severity: Fat Layer Exposed Amount of bleeding with debridement: Mild Bleeding Controlled with: Compression and gauze Patient tolerated procedure: Patient tolerated procedure well Post-Debridement Measurements and Additional Note: Post-Debridement Measurements/Treatment CIARRA - Nurse 1 - General Ulcer Assessment Start: 07/22/21 11:56 Freq: Status: Active Protocol: NILTON Activity Type Activity Date Activity User E-Sign Co-Sign Detail Recorded Client Recorded Date Recorded By Document 07/22/21 11:56 MT [id number] 07/22/21 12:00 MT Document 08/12/21 10:37 RB [id number] 08/12/21 10:42 RB 07/22/21 08/12/21 11:56 10:37 - Today's Visit Information Type of service Follow-up Visit Follow-up Visit (Physician/DAYCARE ASSISTANT (Physician/DAYCARE ASSISTANT ) ) Arrival Mode Walker Ambulatory Transfer Assistance None Accompanied by self Patient Identification Verified (Name & Yes Yes ) Patient Requires Transmission-Based No Precautions Height and Weight Body Mass Index (BMI) 112.3 112.3 BMI Classification Obese Obese Vital Signs Temperature (97.8 F-99.1 F) 97 F L 97 F L Temperature Source Temporal Temporal Pulse Rate (60-100) 84 102 H Pulse Location Monitor Monitor Respiratory Rate (12-18) 18 18 Respiratory rate source Observation Observation Oxygen Delivery Method Room Air Blood Pressure (90/60-120/80) 162/99 H 150/77 H Blood Pressure Mean (mm Hg) 120 101 Source Monitor Monitor Position Semi-Fowlers Blood Pressure Location Left Arm History Since Last Visit- (Skip if this is Patient's initial visit) Have you changed medications since your No last visit? Any new allergies or adverse reactions No Had a fall/change in ADL's that may No increase risk of falls Have you been in the hospital since your No last visit? Has dressing in place as prescribed Yes Yes Has compression in place as prescribed Yes No Has offloadiing in place as prescribed Yes No Experienced any changes in pain level or Yes No management Left Footwear Regular Shoe Regular Shoe Right Footwear Regular Shoe Regular Shoe Pain Scale: 0-10 Numeric Is Patient Pain Free? Yes Yes - Nurse 1 - General Ulcer Measurement Start: 07/22/21 11:56 Freq: Status: Active Protocol: Activity Type Activity Date Activity User E-Sign Co-Sign Detail Recorded Client Recorded Date Recorded By Document 07/22/21 11:56 MT [id number] 07/22/21 12:00 MT Document 08/12/21 10:37 RB [id number] 08/12/21 10:42 RB 07/22/21 08/12/21 11:56 10:37 Wound Center Nurse 1 13. Abdomen -Combined with other wound No -Current Size (cm) - Length 0.1 0.1 -Current Size (cm) - Width 0.1 0.1 -Current Size (cm) - Depth 0.1 0.1 -Total Square Cm 0.01 0.01 -Tunneling No No -Undermining/Tunneling No No -Circular Undermining No No -Exudate Amt Small Medium -Exudate Type Serosanguineous Serosanguineous -Wound Margin Distinct, Distinct, Outline Outline Attached Attached -Granulation Amt Medium (34-66%) Medium (34-66%) -Granulation Quality Whitlock Whitlock -Slough/Fibrin Yes Yes -Necrosis Amt Medium (34-66%) Large (67-100%) -Necrotic Tissue Type Adherent Slough Adherent Slough -Structure Exposed N/A N/A -Texture (Meg-wound Skin Appearance) Assessed, Assessed, Scarring Scarring -Moisture (Meg-wound Skin Appearance) Assessed Assessed -Color (Meg-wound Skin Appearance) Assessed Assessed -Temperature (Meg-wound Skin No Abnormality No Abnormality Appearance) (Pt Warm) (Pt Warm) -Tenderness on Palpation (Meg-wound Yes No Skin Appearance) -Ulcer Cleansing Wound Cleanser Wound Cleanser -Foul Odor after Cleansing No No -Anesthetic Used 5% Lidocaine 5% Lidocaine Gel Gel WC - Nurse 2 - General Ulcer CM Notes Start: 07/22/21 11:56 Freq: Status: Active Protocol: Activity Type Activity Date Activity User E-Sign Co-Sign Detail Recorded Client Recorded Date Recorded By Document 07/22/21 12:47 MW [id number] 07/22/21 12:57 MW Document 08/12/21 11:36 MW [id number] 08/12/21 11:48 MW 07/22/21 08/12/21 12:47 11:36 Wound Center Nurse 2 13. Abdomen -Time 12:54 11:37 -Correct Patient Yes Yes -Correct Side, Site, Position Yes Yes -Correct Procedure Yes Yes -Procedure Performed Yes Yes -Type of Procedure Debridement Debridement -Clinical Debridement Subcutaneous Subcutaneous -Tissue Removed Subcutaneous Subcutaneous -Post Debridement (cm) - Length 0.3 0.7 -Post Debridement (cm) - Width 0.2 0.4 -Post Debridement (cm) - Depth 0.1 0.1 -Total Square (Post) (cm) 0.06 0.28 -Area of Debridement (cm) - Length 0.3 0.7 -Area of Debridement (cm) - Width 0.2 0.4 -Total Square (Area) (cm) 0.06 0.28 -Tunneling No No -Undermining/Tunneling No No -Circular Undermining No No -Wound/Ulcer Outcome Not Healed Not Healed -Ulcer Cleansing Rinsed/ Rinsed/ Irrigated with Irrigated with Saline Saline -Foul Odor after Cleansing No No -Bioengineered Tissue Yes No -Type of Bioengineered Tissue Epifix 18mm Disc -Expiration Date 05/24/26 -Product Lot Number [id number] -Percent Used 100 -Lot number of Saline Used [id number] -Bleeding Controlled with Pressure Pressure -Treatment Response Procedure Procedure Tolerated Well Tolerated Well -Offloading No No -Debridement - Subq, 1st 20sq cm No Yes -Apply Skin Sub - 1st 25 sq cm - Legs 1 -Epifix 18mm Disc 3 Pain Scale: 0-10 Numeric Is Patient Pain Free? Yes Yes WC - Nurse 3 - General Ulcer D/C NN Start: 07/22/21 11:56 Freq: Status: Active Protocol: Activity Type Activity Date Activity User E-Sign Co-Sign Detail Recorded Client Recorded Date Recorded By Document 07/22/21 13:01 RB [id number] 07/22/21 13:02 RB Document 08/12/21 11:52 MW [id number] 08/12/21 11:53 MW 07/22/21 08/12/21 13:01 11:52 Wound Care Nurse 3 13. Abdomen -Ulcer Cleansing Not Cleansed -Primary Dressing Applied Mepilex Border Mepilex Border -Mepilex Border 1 2 Treatment Response Procedure Tolerated Well Pain Scale: 0-10 Numeric Is Patient Pain Free? Yes Yes WC - Visit Discharge Discharge Condition Stable Stable Ambulatory Status Ambulatory, Ambulatory Walker Transportation Private Auto Private Auto Accompanied by SELF Medication Reconcilliation completed & No No provided to patient/care provider Clinical Summary of Care Provided Yes Yes Assessment/Plan Assessment/Plan (1) Postoperative wound dehiscence: CODE(S): T81.31XA - Disruption of external operation (surgical) wound, not elsewhere classified, initial encounter QUALIFIERS: Encounter type: subsequent encounter Qualified Code(s): T81.31XD - Disruption of external operation (surgical) wound, not elsewhere classified, subsequent encounter (2) Ulcer of abdomen wall with fat layer exposed: CODE(S): L98.492 - Non-pressure chronic ulcer of skin of other sites with fat layer exposed (3) Ileostomy in place: CODE(S): Z93.2 - Ileostomy status (4) Morbid obesity: CODE(S): E66.01 - Morbid (severe) obesity due to excess calories (5) Lymphedema: CODE(S): I89.0 - Lymphedema, not elsewhere classified (6) Walking difficulty due to ankle and foot: CODE(S): R26.2 - Difficulty in walking, not elsewhere classified (7) JOSEPH (obstructive sleep apnea): CODE(S): G47.33 - Obstructive sleep apnea (adult) (pediatric) PLAN: Melanie's ulcer of her abdomen was evaluated and debrided today at the wound healing center. Wound culture was not performed as there are no obvious signs of infection. She has had labs approx. 2 months ago to evaluate her nutrition and for diabetes which nutrition is adequate and A1C was less than 6.0%. She has been treating her ulcer with standard wound care for > 8 weeks at home under my guidance and observation approx. monthly without being able to remain healed particularly over the last 10 weeks. Epifix #3 was applied today per vice president compliance guidelines and rehydrated with hydrogel and covered with adaptic touch and then silicone foam border dressing. Will have her change dressings to Promogran covered with silicone bordered foam dressing if the bandage gets wet or soiled. Due to her inability to heal with standard wound care, I believe that it is medically necessary for Melanie to be treated with an advanced wound healing product such as Epifix in order to heal and keep her ulcer healed. We discussed offloading of the site which she has been doing and we also encouraged increased protein intake, weight loss and proper cleansing of the ulcer to facilitate healing. She was advised to call if there are any increased odor, pain, drainage or erythema. She will return in 1 week for wound care.
[2021-08-19 11:28] VITALS: BP 158/72; PULSE 111; RESP 18; TEMP 36.5; BMI 112.3
--- NOTE | 2021-08-19 17:14 | PN.PCM_ITS ---
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 The incision was left to heal through secondary intention. She had a wound vac for several weeks after her surgery but when she was finally discharged from the hospital into a skilled facility in the end of January the wound vac was discontinued as the wound had healed enough to be able to be packed with silver alginate dressing. She has had healing of the incisional wound completely several different times from February and March but since April the area at the superior part of the incision has reopened and remains an ulcer. She has used Aquacel Extra dressings with changes daily covered with gauze or silicone bordered dressing for the last 12 weeks with minimal improvement. The area drains moderate to heavy at times. She is on chronic anticoagulation with warfarin and is obese. She has no odor, erythema or other signs of infection. Subjective Subjective Melanie returns today for follow up of nonhealing ulcer of her abdominal incision. It has improved with Epifix application but she was unable to keep it in place the full week. The bandage was soiled from a leak of her ostomy and she has been using hydrogel daily since Sunday. She denies fever, chills, erythema, odor. Objective Data Objective Data Vital Signs: Vital Signs Temp Pulse Resp BP 97.7 F L 111 H 18 158/72 H 08/19/21 11:28 08/19/21 11:28 08/19/21 11:28 08/19/21 11:28 Oxygen Delivery Method Room Air Weight: 335 kg Body Mass Index (BMI) 112.3 Physical Exam Const alert, oriented x3 and no apparent distress General Appearance: cooperative and comfortable HEENT normocephalic and head/scalp atraumatic Resp normal respiratory effort Effort and Inspection: able to speak in complete sentences Cardio regular rate and regular rhythm Extremity General Extremity: edema bilateral lower extremity Details: moderate Skin Wounds: wounds noted Wound Narrative: as in clinical panel Psych mental status grossly normal, thought process normal, cooperative, affect normal and speech normal Debridement Note Debridement Note Wound debrided: abdomen Laterality: Not Applicable Type of Debridement: Excisional debridement Anesthesia Used: 4% Lidocaine Solution Depth: Down to and including healthy tissue and in the subcutaneous layer Percentage of wound debrided: 100 Instrument Used: 3mm curette Tissue Removed: Yellow slough, devitalized tissue Severity: Fat Layer Exposed Amount of bleeding with debridement: Mild Bleeding Controlled with: Compression and gauze Patient tolerated procedure: Patient tolerated procedure well Post-Debridement Measurements and Additional Note: Post-Debridement Measurements/Treatment - Nurse 1 - General Ulcer Assessment Start: 07/22/21 11:56 Freq: Status: Active Protocol: NILTON Activity Type Activity Date Activity User E-Sign Co-Sign Detail Recorded Client Recorded Date Recorded By Document 07/22/21 11:56 MT [id number] 07/22/21 12:00 MT Document 08/12/21 10:37 RB [id number] 08/12/21 10:42 RB Document 08/19/21 11:28 RB [id number] 08/19/21 11:31 RB 07/22/21 08/12/21 08/19/21 11:56 10:37 11:28 - Today's Visit Information Type of service Follow-up Visit Follow-up Visit Follow-up Visit (Physician/ORDER PACKER OR PACKAGER (Physician/ORDER PACKER OR PACKAGER (Physician/ORDER PACKER OR PACKAGER ) ) ) Arrival Mode Walker Ambulatory Ambulatory, Walker Transfer Assistance None None Accompanied by self Patient Identification Verified (Name & Yes Yes Yes ) Patient Requires Transmission-Based No No Precautions Height and Weight Body Mass Index (BMI) 112.3 112.3 112.3 BMI Classification Obese Obese Obese Vital Signs Temperature (97.8 F-99.1 F) 97 F L 97 F L 97.7 F L Temperature Source Temporal Temporal Temporal Pulse Rate (60-100) 84 102 H 111 H Pulse Location Monitor Monitor Monitor Respiratory Rate (12-18) 18 18 18 Respiratory rate source Observation Observation Observation Oxygen Delivery Method Room Air Blood Pressure (90/60-120/80) 162/99 H 150/77 H 158/72 H Blood Pressure Mean (mm Hg) 120 101 100 Source Monitor Monitor Monitor Position Semi-Fowlers Semi-Fowlers Blood Pressure Location Left Arm Left Arm History Since Last Visit- (Skip if this is Patient's initial visit) Have you changed medications since your No No last visit? Any new allergies or adverse reactions No No Had a fall/change in ADL's that may No No increase risk of falls Signs or symptoms of abuse and/or No neglect since last visit Have you been in the hospital since your No No last visit? Has dressing in place as prescribed Yes Yes Yes Has compression in place as prescribed Yes No No Has offloadiing in place as prescribed Yes No No Experienced any changes in pain level or Yes No No management Left Footwear Regular Shoe Regular Shoe Right Footwear Regular Shoe Regular Shoe Pain Scale: 0-10 Numeric Is Patient Pain Free? Yes Yes Yes - Nurse 1 - General Ulcer Measurement Start: 07/22/21 11:56 Freq: Status: Active Protocol: Activity Type Activity Date Activity User E-Sign Co-Sign Detail Recorded Client Recorded Date Recorded By Document 07/22/21 11:56 DC [id number] 07/22/21 12:00 DC Document 08/12/21 10:37 RB [id number] 08/12/21 10:42 RB Document 08/19/21 11:28 RB [id number] 08/19/21 11:31 RB 07/22/21 08/12/21 08/19/21 11:56 10:37 11:28 Wound Center Nurse 1 13. Abdomen -Combined with other wound No No -Current Size (cm) - Length 0.1 0.1 0.1 -Current Size (cm) - Width 0.1 0.1 0.1 -Current Size (cm) - Depth 0.1 0.1 0.1 -Total Square Cm 0.01 0.01 0.01 -Photo Taken Yes -Tunneling No No No -Undermining/Tunneling No No No -Circular Undermining No No No -Exudate Amt Small Medium Small -Exudate Type Serosanguineous Serosanguineous Serosanguineous -Wound Margin Distinct, Distinct, Distinct, Outline Outline Outline Attached Attached Attached -Granulation Amt Medium (34-66%) Medium (34-66%) Medium (34-66%) -Granulation Quality [place] -Slough/Fibrin Yes Yes Yes -Necrosis Amt Medium (34-66%) Large (67-100%) Small (1-33%) -Necrotic Tissue Type Adherent Slough Adherent Slough Adherent Slough -Structure Exposed N/A N/A N/A -Texture (Meg-wound Skin Appearance) Assessed, Assessed, Assessed Scarring Scarring -Moisture (Meg-wound Skin Appearance) Assessed Assessed Assessed -Color (Meg-wound Skin Appearance) Assessed Assessed No Abnormality -Temperature (Meg-wound Skin No Abnormality No Abnormality No Abnormality Appearance) (Pt Warm) (Pt Warm) (Pt Warm) -Tenderness on Palpation (Meg-wound Yes No No Skin Appearance) -Ulcer Cleansing Wound Cleanser Wound Cleanser Wound Cleanser -Foul Odor after Cleansing No No -Anesthetic Used 5% Lidocaine 5% Lidocaine 5% Lidocaine Gel Gel Gel,Cetacaine WC - Nurse 2 - General Ulcer CM Notes Start: 07/22/21 11:56 Freq: Status: Active Protocol: Activity Type Activity Date Activity User E-Sign Co-Sign Detail Recorded Client Recorded Date Recorded By Document 07/22/21 12:47 MW [id number] 07/22/21 12:57 MW Document 08/12/21 11:36 MW [id number] 08/12/21 11:48 MW Edit Result 08/12/21 11:36 MW (1) [id number] 08/15/21 06:59 PL Document 08/19/21 12:12 MW [id number] 08/19/21 12:24 MW (1) 13. Abdomen - Bioengineered Tissue No => Yes - Type of Bioengineered Tissue => Epifix 18mm Disc - Expiration Date => 05/24/26 - Product Lot Number => [id number] - Percent Used => 100 - Debridement - Subq, 1st 20sq cm Yes => No - Apply Skin Sub - 1st 25 sq cm - Legs => 1 - Epifix 18mm Disc => 3 07/22/21 08/12/21 08/19/21 12:47 11:36 12:12 Wound Center Nurse 2 13. Abdomen -Time 12:54 11:37 12:12 -Correct Patient Yes Yes Yes -Correct Side, Site, Position Yes Yes Yes -Correct Procedure Yes Yes Yes -Procedure Performed Yes Yes Yes -Type of Procedure Debridement Debridement Debridement -Clinical Debridement Subcutaneous Subcutaneous Subcutaneous -Tissue Removed Subcutaneous Subcutaneous Subcutaneous -Post Debridement (cm) - Length 0.3 0.7 0.2 -Post Debridement (cm) - Width 0.2 0.4 0.2 -Post Debridement (cm) - Depth 0.1 0.1 0.1 -Total Square (Post) (cm) 0.06 0.28 0.04 -Area of Debridement (cm) - Length 0.3 0.7 0.2 -Area of Debridement (cm) - Width 0.2 0.4 0.2 -Total Square (Area) (cm) 0.06 0.28 0.04 -Tunneling No No No -Undermining/Tunneling No No No -Circular Undermining No No No -Wound/Ulcer Outcome Not Healed Not Healed Not Healed -Ulcer Cleansing Rinsed/ Rinsed/ Rinsed/ Irrigated with Irrigated with Irrigated with Saline Saline Saline -Foul Odor after Cleansing No No No -Bioengineered Tissue Yes Yes Yes -Type of Bioengineered Tissue Epifix 18mm Epifix 18mm Epifix 18mm Disc Disc Disc -Expiration Date 05/24/26 05/24/26 05/24/26 -Product Lot Number [id number] -Percent Used 100 100 100 -Lot number of Saline Used [id number] -Bleeding Controlled with Pressure Pressure Pressure -Treatment Response Procedure Procedure Procedure Tolerated Well Tolerated Well Tolerated Well -Offloading No No No -Debridement - Subq, 1st 20sq cm No No No -Apply Skin Sub - 1st 25 sq cm - Legs 1 1 1 -Epifix 18mm Disc 3 3 3 Pain Scale: 0-10 Numeric Is Patient Pain Free? Yes Yes Yes WC - Nurse 3 - General Ulcer D/C NN Start: 07/22/21 11:56 Freq: Status: Active Protocol: Activity Type Activity Date Activity User E-Sign Co-Sign Detail Recorded Client Recorded Date Recorded By Document 07/22/21 13:01 RB [id number] 07/22/21 13:02 RB Document 08/12/21 11:52 MW [id number] 08/12/21 11:53 MW Document 08/19/21 12:31 MW [id number] 08/19/21 12:32 MW 07/22/21 08/12/21 08/19/21 13:01 11:52 12:31 Wound Care Nurse 3 13. Abdomen -Ulcer Cleansing Not Cleansed Not Cleansed -Foul Odor after Cleansing No -Negative Pressure Wound Therapy N/A -Primary Dressing Applied Mepilex Border Mepilex Border C Hydrogel ($), Mepilex Border -Mepilex Border 1 2 1 Treatment Response Procedure Procedure Tolerated Well Tolerated Well Pain Scale: 0-10 Numeric Is Patient Pain Free? Yes Yes Yes Teaching: Wound Center Dressing Your Wound -Person Taught Patient -Teaching Method Discussion -Response to teaching Verbalize understanding WC - Visit Discharge Discharge Condition Stable Stable Stable Ambulatory Status Ambulatory, Ambulatory Ambulatory, Walker Walker Transportation Private Auto Private Auto Private Auto Accompanied by SELF SELF Medication Reconcilliation completed & No No No provided to patient/care provider Clinical Summary of Care Provided Yes Yes Yes Assessment/Plan Assessment/Plan (1) Postoperative wound dehiscence: CODE(S): T81.31XA - Disruption of external operation (surgical) wound, not elsewhere classified, initial encounter QUALIFIERS: Encounter type: subsequent encounter Qualified Code(s): T81.31XD - Disruption of external operation (surgical) wound, not elsewhere classified, subsequent encounter (2) Ulcer of abdomen wall with fat layer exposed: CODE(S): L98.492 - Non-pressure chronic ulcer of skin of other sites with fat layer exposed (3) Ileostomy in place: CODE(S): Z93.2 - Ileostomy status (4) Morbid obesity: CODE(S): E66.01 - Morbid (severe) obesity due to excess calories (5) Lymphedema: CODE(S): I89.0 - Lymphedema, not elsewhere classified (6) Walking difficulty due to ankle and foot: CODE(S): R26.2 - Difficulty in walking, not elsewhere classified (7) JOSEPH (obstructive sleep apnea): CODE(S): G47.33 - Obstructive sleep apnea (adult) (pediatric) PLAN: Melanie's ulcer of her abdomen was evaluated and debrided today at the wound healing center. She has had labs approx. 2 months ago to evaluate her nutrition and for diabetes which nutrition is adequate and A1C was less than 6.0%. She has been treating her ulcer with standard wound care for > 8 weeks at home under my guidance and observation approx. monthly without being able to remain healed particularly over the last 10 weeks. Epifix #4 was applied today per computer systems technology instructor guidelines and rehydrated with hydrogel and covered with adaptic touch and then silicone foam border dressing. Will have her change dressings to hydrogel covered with silicone bordered foam dressing if the bandage gets wet or soiled. Due to her inability to heal with standard wound care, I believe that it is medically necessary for Melanie to be treated with an advanced wound healing product such as Epifix in order to heal and keep her ulcer healed. We discussed offloading of the site which she has been doing and we also encouraged increased protein intake, weight loss and proper cleansing of the ulcer to facilitate healing. She was advised to call if there are any increased odor, pain, drainage or erythema. She will return in 1 week for wound care.
== END 2021-08-20 23:59 | disposition home or self-care (01) ==
LOC: WC 11:00
PROVIDERS: PCP Family Medicine; Visit Provider Family Medicine
DX: T81.31XA Disruption of external operation (surgical) wound, not elsewhere classified, initial encounter (principal); L98.492 Non-pressure chronic ulcer of skin of other sites with fat layer exposed; Z93.2 Ileostomy status; E66.01 Morbid (severe) obesity due to excess calories; Z68.45 Body mass index [BMI] 70 or greater, adult; I89.0 Lymphedema, not elsewhere classified; R26.2 Difficulty in walking, not elsewhere classified; G47.33 Obstructive sleep apnea (adult) (pediatric); Z79.01 Long term (current) use of anticoagulants; Z79.82 Long term (current) use of aspirin; Z79.899 Other long term (current) drug therapy; Z90.49 Acquired absence of other specified parts of digestive tract
CPT/HCPCS: 11042; 15271; Q4186

== ENCOUNTER 2021-09-09 11:04 | Outpatient (RCR) | payer MEDICARE, MEDICAID, SELFPAY ==
[2021-08-21 00:42] VITALS: BP 158/72; PULSE 111; RESP 18; TEMP 36.5; BMI 112.3
[2021-09-09 11:18] VITALS: BP 156/65; PULSE 100; RESP 18; TEMP 36.3; BMI 112.3
--- NOTE | 2021-09-09 14:03 | PCM.WC.PN ---
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 The incision was left to heal through secondary intention. She had a wound vac for several weeks after her surgery but when she was finally discharged from the hospital into a skilled facility in the end of January the wound vac was discontinued as the wound had healed enough to be able to be packed with silver alginate dressing. She has had healing of the incisional wound completely several different times from February and March but since April the area at the superior part of the incision has reopened and remains an ulcer. She has used Aquacel Extra dressings with changes daily covered with gauze or silicone bordered dressing for the last 12 weeks with minimal improvement. The area drains moderate to heavy at times. She is on chronic anticoagulation with warfarin and is obese. She has no odor, erythema or other signs of infection. Subjective Nadja Navarro returns today for follow up of nonhealing ulcer of her abdominal incision. It has improved with Epifix application but is not fully healed. She has a new ulcer taht is on her left buttock that has been bleeding and draining for several weeks. It is near the site of a previous fistula. She has been using hydrogel daily and covering with gauze or silicone foam bordered dressing. She denies fever, chills, erythema, odor. Objective Data Objective Data Vital Signs: Vital Signs Temp Pulse Resp BP 97.3 F L 100 18 156/65 H 09/09/21 11:18 09/09/21 11:18 09/09/21 11:18 09/09/21 11:18 Weight: 335 kg Body Mass Index (BMI) 112.3 Physical Exam Const alert, oriented x3 and no apparent distress General Appearance: cooperative and comfortable HEENT normocephalic and head/scalp atraumatic Resp normal respiratory effort Effort and Inspection: able to speak in complete sentences Cardio regular rate and regular rhythm Skin Wounds: wounds noted Wound Narrative: as in clinical panel Psych mental status grossly normal, thought process normal, cooperative and affect normal Debridement Note Debridement Note Wound debrided: abdomen Laterality: Not Applicable Type of Debridement: Excisional debridement Anesthesia Used: 4% Lidocaine Solution and 5% Lidocaine Gel Depth: Down to and including healthy tissue and in the subcutaneous layer Percentage of wound debrided: 100 Instrument Used: 3mm curette Tissue Removed: Yellow slough, devitalized tissue Severity: Fat Layer Exposed Amount of bleeding with debridement: Mild Bleeding Controlled with: Compression and gauze Patient tolerated procedure: Patient tolerated procedure well Post-Debridement Measurements and Additional Note: Post-Debridement Measurements/Treatment CIARRA - Nurse 1 - General Ulcer Assessment Start: 09/09/21 11:18 Freq: Status: Active Protocol: NILTON Activity Type Activity Date Activity User E-Sign Co-Sign Detail Recorded Client Recorded Date Recorded By Document 09/09/21 11:18 DL [id number] 09/09/21 11:22 DL 09/09/21 11:18 CIARRA - Today's Visit Information Type of service Follow-up Visit (Physician/APPEALS EXAMINER ) Arrival Mode Ambulatory, Walker Transfer Assistance None Patient Identification Verified (Name & Yes ) Patient Requires Transmission-Based No Precautions Height and Weight Body Mass Index (BMI) 112.3 BMI Classification Obese Vital Signs Temperature (97.8 F-99.1 F) 97.3 F L Temperature Source Temporal Pulse Rate (60-100) 100 Pulse Location Monitor Respiratory Rate (12-18) 18 Respiratory rate source Observation Blood Pressure (90/60-120/80) 156/65 H Blood Pressure Mean (mm Hg) 95 Source Monitor Position Semi-Fowlers Blood Pressure Location Left Arm History Since Last Visit- (Skip if this is Patient's initial visit) Have you changed medications since your No last visit? Any new allergies or adverse reactions No Had a fall/change in ADL's that may No increase risk of falls Signs or symptoms of abuse and/or No neglect since last visit Have you been in the hospital since your No last visit? Has dressing in place as prescribed Yes Has compression in place as prescribed No Has offloadiing in place as prescribed No Experienced any changes in pain level or No management Left Footwear Slipper Right Footwear Regular Shoe Pain Scale: 0-10 Numeric Is Patient Pain Free? Yes CIARRA Jara Nurse 1 - General Ulcer Measurement Start: 09/09/21 11:18 Freq: Status: Active Protocol: Activity Type Activity Date Activity User E-Sign Co-Sign Detail Recorded Client Recorded Date Recorded By Document 09/09/21 11:18 RB [id number] 09/09/21 11:22 RB 09/09/21 11:18 Wound Center Nurse 1 13. Abdomen -Combined with other wound No -Current Size (cm) - Length 0.1 -Current Size (cm) - Width 0.1 -Current Size (cm) - Depth 0.1 -Total Square Cm 0.01 -Photo Taken Yes -Tunneling No -Undermining/Tunneling No -Circular Undermining No -Exudate Amt Small -Exudate Type Serosanguineous -Wound Margin Distinct, Outline Attached -Granulation Amt Large (67-100%) -Granulation Quality [place] -Slough/Fibrin Yes -Necrosis Amt Small (1-33%) -Necrotic Tissue Type Adherent Slough -Structure Exposed N/A -Texture (Meg-wound Skin Appearance) Assessed, Scarring -Moisture (Meg-wound Skin Appearance) Assessed -Color (Meg-wound Skin Appearance) Assessed -Temperature (Meg-wound Skin No Abnormality Appearance) (Pt Warm) -Tenderness on Palpation (Meg-wound No Skin Appearance) -Ulcer Cleansing Rinsed/ Irrigated with Saline -Foul Odor after Cleansing No -Anesthetic Used 5% Lidocaine Gel WC - Nurse 2 - General Ulcer CM Notes Start: 09/09/21 11:18 Freq: Status: Active Protocol: Activity Type Activity Date Activity User E-Sign Co-Sign Detail Recorded Client Recorded Date Recorded By Document 09/09/21 11:30 MW [id number] 09/09/21 11:53 MW 09/09/21 11:30 Wound Center Nurse 2 #14 left buttock -Time 11:43 -Correct Patient Yes -Correct Side, Site, Position Yes -Correct Procedure Yes -Procedure Performed No -Post Debridement (cm) - Length 0.2 -Post Debridement (cm) - Width 0.2 -Post Debridement (cm) - Depth 2.7 -Total Square (Post) (cm) 0.04 -Tunneling No -Undermining/Tunneling No -Circular Undermining No -Wound/Ulcer Outcome Not Healed -Ulcer Cleansing Rinsed/ Irrigated with Saline -Foul Odor after Cleansing No -Bioengineered Tissue No -Bleeding Controlled with NA -Treatment Response Procedure Tolerated Well -Offloading No 13. Abdomen -Time 11:32 -Correct Patient Yes -Correct Side, Site, Position Yes -Correct Procedure Yes -Procedure Performed Yes -Type of Procedure Debridement -Clinical Debridement Subcutaneous -Tissue Removed Subcutaneous -Post Debridement (cm) - Length 0.2 -Post Debridement (cm) - Width 0.1 -Post Debridement (cm) - Depth 0.1 -Total Square (Post) (cm) 0.02 -Area of Debridement (cm) - Length 0.2 -Area of Debridement (cm) - Width 0.1 -Total Square (Area) (cm) 0.02 -Tunneling No -Undermining/Tunneling No -Circular Undermining No -Wound/Ulcer Outcome Not Healed -Ulcer Cleansing Rinsed/ Irrigated with Saline -Foul Odor after Cleansing No -Bioengineered Tissue No -Bleeding Controlled with Pressure -Treatment Response Procedure Tolerated Well -Offloading No -Debridement - Subq, 1st 20sq cm Yes Pain Scale: 0-10 Numeric Is Patient Pain Free? Yes - Nurse 3 - General Ulcer D/C NN Start: 09/09/21 11:18 Freq: Status: Active Protocol: Activity Type Activity Date Activity User E-Sign Co-Sign Detail Recorded Client Recorded Date Recorded By Document 09/09/21 11:55 MW [id number] 09/09/21 11:56 MW 09/09/21 11:55 Wound Care Nurse 3 #14 left buttock -Ulcer Cleansing Rinsed/ Irrigated with Saline -Foul Odor after Cleansing No -Negative Pressure Wound Therapy N/A -Primary Dressing Applied Promogran Inez Matter -Primary Dressing Covered/Secured with Dry Gauze, Secured with Tape -Promogran Inez Matter 1 13. Abdomen -Ulcer Cleansing Rinsed/ Irrigated with Saline -Foul Odor after Cleansing No -Negative Pressure Wound Therapy N/A -Primary Dressing Applied C Hydrogel ($), Mepilex Border -Mepilex Border 1 Treatment Response Procedure Tolerated Well Pain Scale: 0-10 Numeric Is Patient Pain Free? Yes Teaching: Wound Center Dressing Your Wound -Person Taught Patient -Teaching Method Discussion -Response to teaching Verbalize understanding WC - Visit Discharge Discharge Condition Stable Ambulatory Status Ambulatory, Walker Transportation Private Auto Accompanied by self Medication Reconcilliation completed & No provided to patient/care provider Clinical Summary of Care Provided Yes Additional Wound Wound debrided: left buttock Laterality: Left Wound Grade/Stage: stage 2 Type of Debridement: Selective debridement Anesthesia Used: 4% Lidocaine Solution Depth: Down to and including healthy tissue and in the subcutaneous layer Percentage of wound debrided: 100 Instrument Used: - (probe) Tissue Removed: Yellow slough, devitalized tissue Severity: Fat Layer Exposed Amount of bleeding with debridement: Mild Bleeding Controlled with: Compression and gauze Patient tolerated procedure: Patient tolerated procedure well Assessment/Plan Assessment/Plan (1) Postoperative wound dehiscence: CODE(S): T81.31XA - Disruption of external operation (surgical) wound, not elsewhere classified, initial encounter QUALIFIERS: Encounter type: subsequent encounter Qualified Code(s): T81.31XD - Disruption of external operation (surgical) wound, not elsewhere classified, subsequent encounter (2) Ulcer of abdomen wall with fat layer exposed: CODE(S): L98.492 - Non-pressure chronic ulcer of skin of other sites with fat layer exposed (3) Ileostomy in place: CODE(S): Z93.2 - Ileostomy status (4) Morbid obesity: CODE(S): E66.01 - Morbid (severe) obesity due to excess calories (5) Delayed wound healing: CODE(S): T14.8XXD - Other injury of unspecified body region, subsequent encounter (6) Decubitus ulcer of left buttock, stage 2: CODE(S): L89.322 - Pressure ulcer of left buttock, stage 2 PLAN: Melanie's ulcer of her abdomen was evaluated and debrided today at the wound healing center. She has had labs approx. 2 months ago to evaluate her nutrition and for diabetes which nutrition is adequate and A1C was less than 6.0%. Her left buttock ulcer will be treated with Inez packed into the ulcer cavity and covered with gauze and tape. She has been applying hydrogel and covering with adaptic and gauze or silicone foam bordered dressing. Will have her continue to do dressings with hydrogel covered with silicone bordered foam dressing if the bandage gets wet or soiled. Due to her inability to heal with standard wound care, I believe that it is medically necessary for Melanie to be treated with an advanced wound healing product such as Epifix in order to heal and keep her ulcer healed. We discussed offloading of the site which she has been doing and we also encouraged increased protein intake, weight loss and proper cleansing of the ulcer to facilitate healing. She was advised to call if there are any increased odor, pain, drainage or erythema. She will return in 2 weeks for wound care.
== END 2021-09-20 23:59 | disposition home or self-care (01) ==
LOC: WC 11:04
PROVIDERS: PCP Family Medicine; Visit Provider Family Medicine
DX: T81.31XA Disruption of external operation (surgical) wound, not elsewhere classified, initial encounter (principal); L98.492 Non-pressure chronic ulcer of skin of other sites with fat layer exposed; L89.322 Pressure ulcer of left buttock, stage 2; E66.01 Morbid (severe) obesity due to excess calories; Z68.45 Body mass index [BMI] 70 or greater, adult; Z79.01 Long term (current) use of anticoagulants; Z79.82 Long term (current) use of aspirin; Z79.899 Other long term (current) drug therapy; Z93.2 Ileostomy status
CPT/HCPCS: 11042

== ENCOUNTER 2021-09-15 15:00 | Outpatient (RCR) | payer MEDICARE, MEDICAID, SELFPAY ==
--- NOTE | 2021-03-24 13:22 | HP.PTEVAL ---
Patient's Visit Information PUSHPA ORELLANA is a 45 year old F referred to Physical Therapy by Dr. Karly Bose DO with a diagnosis of Bilateral Hip Pain and Lumbar Pain. Date of Evaluation: 03/24/21 Physical Therapist: Meghna Pang DPT - Visit Plan Frequency: 3x /Week Duration: 6 Months Plan: Focus on core strength/stabilization with functional mobility - Subjective Patient reports Jan 13 2021 removed her large intestine by Dr. Mosley- emergency surgery. October 21 she was at ER and had a big abscess in her belly due to diverticulitis. [place] transferred her to [facility]. She was there for a week and then she had a PICC line and came up to the hospital for infusions- antibiotics. October it was healed- beginning of November she was hurting again and admitted for 28 days. She now has an ostomy bag for fci. She had an incision from the mid belly all the way down- including a wound vac- Sunday she saw the MD who is happy with the wound at this point- fully healed. She is home now- she is driving but she is in a lot of pain and its really hard to walk. She had home therapy but that was not helpful so she wants to go to PT. Her belly back and hips are what bothers her. She has pain into the lateral aspect of her thighs. No pain radiating down to her toes. Worst: 9/10 Agg: movement Best: 5/10 Eases: Topical gel on her back. Describes the pain as sharp, achy and it just hurts. No N/T in the toes. She has been home for about 5 weeks and just has a lot of pain with movement. She lives her parents- who can help if she needs help. She lives in a single story home but has 5 steps to enter. She ordered a walker but its not here yet- does use a w/c when she goes out in the community. Sleep: disturbed- regular bed. - Objective Posture: FH, RS- can correct with verbal cues but does not maintain. Gait: step to pattern unable to ambulate >50 feet without stopping. ROM: pain with all movement limits range in both lumbar and hips. Can reach down and tie left shoe but not right due to pain. Stairs: not tested due to safety concerns. Strength: Core: poor, Hip: IR/ER: 4-/5, Abd/Add: 4/5, Flexion: 3+/5, Extn: 4-/5, Knee: 4+/5, Right Ankle: 4+/5. Balance: poor Flex: HS: severe, Gastroc: severe. - Balance/Special Test Scores Lower Extremity Functional Score: 10 30 Second Chair Rise Test Seconds: 10 - Goals Goal 1:: Patient will be I with HEP and progression Goal Time Frame: 6-8 Weeks Goal 2:: Patient will asc/desc 8 recip with 1 HR Goal Time Frame: 6-8 Weeks Goal 3:: Patient will ambulate >300 feet with LRD Goal Time Frame: 6-8 Weeks Goal 4:: Patient will perform 30 sec sit to stands without a rest break Goal Time Frame: 6-8 Weeks - Rehabilitation Potential Physical Therapy Diagnosis: Patient presents with hypomobility- she has decreased pain free ROM, LE and core strength/stabilization, flex and muscular endurance s/p surgery leading to abnormal gait pattern and decreased ability to perform ADl's. Rehabilitation Potential: Fair - Anticipated Interventions Patient/Client Instruction: Educate patient on: Benefits of Fitness Program Therapeutic Exercise to Include: Strength training, Endurance training, Balance training, Coordination, Agility training, Body mechanics, Postural training, Flexibilty training, Gait and locomotor training, Neuromotor development, Dynamic Lumbar Stabilization, Scapular Strength/Stabilization For the Purpose of:: To improve muscle performance and motor function Thank you for the opportunity to evaluate your patient. For Medicare and Medicare HMO plans, please review the plan of care and approve it. It will need to be FAXED BACK to us at [phone] for Medicare purposes. For Medicare only, by signing this I certify the plan of care. Please let me know if there are questions or concerns regarding this plan of care. Physician Signature: Date:
--- NOTE | 2021-05-05 16:07 | HP.PTREVAL ---
Dr. Karly Bose, DO, It has been my pleasure to treat PUSHPA ORELLANA over the last 8 visits for Bilateral Hip Pain and Lumbar Pain. Please see the progress note below for an update on the physical therapy plan of care! Subjective: Pt reports she saw her family doctor and her doctor told her she needsa more PT Objective/Function: Pt is able to ambulate 190 feet with rollator until having to stop. Pt is able to negotiate 8 stairs at a time, one step at a time. Pt is progressing well with HEP. Pt is able to perform 14 sit to stand transfers in 30 sec. Pt is progressing well towards Rx goals but still shows obvious signs of weakness and decreased funtional mobility Plan Plan: Attempt to get 8 more visits approved to focus on pain reduction, LE strengthening, and gait progressions Balance/Gait/Functional tests - Balance/Special Test Scores Lower Extremity Functional Score: 13 30 Second Chair Rise Test Seconds: 10 Goals Goal 1:: Patient will be I with HEP and progression Goal Time Frame: 6-8 Weeks Goal Progress: Progressing Goal 2:: Patient will asc/desc 8 recip with 1 HR Goal Time Frame: 6-8 Weeks Goal Progress: Progressing Goal 3:: Patient will ambulate >300 feet with LRD Goal Time Frame: 6-8 Weeks Goal Progress: Progressing Goal 4:: Patient will perform 30 sec sit to stands without a rest break Goal Time Frame: 6-8 Weeks Anticipated Interventions Patient/Client Instruction: Educate patient on: Benefits of Fitness Program Therapeutic Exercise to Include: Strength training, Endurance training, Balance training, Coordination, Agility training, Body mechanics, Postural training, Flexibilty training, Gait and locomotor training, Neuromotor development, Dynamic Lumbar Stabilization, Scapular Strength/Stabilization For the Purpose of:: To improve muscle performance and motor function Please do not hesitate to contact me at [phone] by phone or if you have questions or concerns regarding this new plan of care! Sincerely, Hu Huerta, PT, ATC
--- NOTE | 2021-07-25 15:34 | HP.PTREVAL ---
Dr. Karly Bose, DO, It has been my pleasure to treat PUSHPA ORELLANA over the last 14 visits for Bilateral Hip Pain and Lumbar Pain. Please see the progress note below for an update on the physical therapy plan of care! Subjective: Patient reports that she feels that she is getting better. Her mother is still doing her laundry as she is not able to get up/down the stairs at home due to fear and only a single hand rail. She is able to live on one floor (bedroom/bathroom). She is driving and able to get her rollator in/out but reports that its pretty heavy but she prefers it because there is a seat. She is still attending the wound clinic due to an open spot on her belly. She will see them as they schedule appts. She reports that she is still having pain in her lumbar spine and hips. The pain is there almost all the time. She is having problems sleeping due to pain. Worst: 09/30 Agg: movement Eases: heating pad, ice and Tramadol. Doesn't like to drive on Tramadol due to making her sleepy. She is seeing pain mgmt for her back- needs an MRI and injections- she needs to have at least 6 weeks of PT prior to approval. She feels that she is getting better- she is walking better and her endurance is better. She feels that she is 45% better- she wants to be able to walk more with less pains. Objective/Function: Posture: FH, RS- can correct with verbal cues but does not maintain. Gait: rollerator- wide LILIANA- 350 feet with 2 rest breaks. ROM: WFL in all planes. Stairs: asc/desc 8 recip with 2 HR- asc required verbal cues to place full foot on the step- descent poor control. Strength: Core: fair minus Hip: Abd/Add: 4+/5, Flexion: 4/5, Extn: 4/5, Knee: 4+/5, Right Ankle: 4+/5. Balance: Sitting: good, Standing Static: fair Standing Dynamic: fair minus. Flex: HS: severe, Gastroc: severe. Plan Plan: 07/25/2021: Focus on LE and core strength/stabilization and functional mobility. focus on pain reduction, LE strengthening, and gait progressions Balance/Gait/Functional tests - Balance/Special Test Scores Lower Extremity Functional Score: 14 TUG Test Time Seconds: 19 Tug Test: <20 sec.=mostly independent 30 Second Chair Rise Test Seconds: 17 Goals Goal 1:: Patient will be I with HEP and progression Goal Time Frame: 6-8 Weeks Goal Progress: Progressing Goal 2:: Patient will asc/desc 8 recip with 1 HR Goal Time Frame: 6-8 Weeks Goal Progress: Progressing Goal 3:: Patient will ambulate >300 feet with LRD Goal Time Frame: 6-8 Weeks Goal Progress: Progressing Goal 4:: Patient will perform 30 sec sit to stands without a rest break Goal Time Frame: 6-8 Weeks Anticipated Interventions Patient/Client Instruction: Educate patient on: Benefits of Fitness Program Therapeutic Exercise to Include: Strength training, Endurance training, Balance training, Coordination, Agility training, Body mechanics, Postural training, Flexibilty training, Gait and locomotor training, Neuromotor development, Dynamic Lumbar Stabilization, Scapular Strength/Stabilization For the Purpose of:: To improve muscle performance and motor function Please do not hesitate to contact me at [phone] by phone or if you have questions or concerns regarding this new plan of care! Sincerely, Meghna Pang DPT
--- NOTE | 2021-09-15 15:35 | HP.PTDCSUM_ITS ---
It has been my pleasure to treat PUSHPA ORELLANA referred by Dr. Karly Bose DO, with the diagnosis of Bilateral Hip Pain and Lumbar Pain for a total of 20 visit(s). Discharge Date: Please see the following information for a summary of their discharge status. Subjective: She reports that she is doing well. She is using her rollator to navigate her environment. She is able to ambulate to the [facility] without sitting down. 1/2 mile on [place] in approx 12 min. Her low back and hips are hurting so bad that she can't do anything at home. She is having problems putting on her left shoe and brace- but she is able to slip her right shoe on. She is having problems getting in/out of the tub- she is having problems standing for to long- does have a stool on the outside of the tub. She is able to drive and using her rollator to get in/out of the car. Uses a smaller walker in the home. Her wound is healed on her belly but she has a sore on her buttocks. abdomen Pain Intensity (Out of 10): 0 back Pain Intensity (Out of 10): 6 bilat hips Pain Intensity (Out of 10): 6 % Improvement: 75 Objective/Function: Posture: FH, RS- can correct with verbal cues but does not maintain. Gait: rollerator- wide LILIANA- 340ft with rollator (SBA) in 2:55 (two standing rest breaks). ROM: WFL in all planes. Stairs: asc/desc 8 recip with 2 HR- asc required verbal cues to place full foot on the step- descent poor control. Strength: Core: fair minus Hip: Abd/Add: 4+/5, Flexion: 4+/5, Extn: 4/5, Knee: 4+/5, Right Ankle: 4+/5. Balance: Sitting: good, Standing Static: fair Standing Dynamic: fair minus. Flex: HS: severe, Gastroc: severe. Goal 1:: Patient will be I with HEP and progression Goal Progress: Progressing Goal 2:: Patient will asc/desc 8 recip with 1 HR Goal Progress: Progressing Goal 3:: Patient will ambulate >300 feet with LRD Goal Progress: Progressing Goal 4:: Patient will perform 30 sec sit to stands without a rest break Plan: 09/15/21: Discharge to [facility]. 07/25/2021: Focus on LE and core strength /stabilization and functional mobility. focus on pain reduction, LE strengthening, and gait progressions If there are questions or concerns regarding this patient's physical therapy, please feel free to call me at [phone]. Thank you for the referral of this patient. Sincerely, Meghna Pang, DPT Balance/Gait/Functional tests - Balance/Special Test Scores Lower Extremity Functional Score: 15 TUG Test Time Seconds: 19 Tug Test: <20 sec.=mostly independent 30 Second Chair Rise Test Seconds: 17
== END 2021-09-15 16:19 | disposition home or self-care (01) ==
LOC: PT 15:00
PROVIDERS: PCP Family Medicine; Referring Provider Family Medicine; Visit Provider Family Medicine
DX: M51.17 Intervertebral disc disorders with radiculopathy, lumbosacral region (principal); M16.0 Bilateral primary osteoarthritis of hip; M47.27 Other spondylosis with radiculopathy, lumbosacral region; M48.07 Spinal stenosis, lumbosacral region; M46.96 Unspecified inflammatory spondylopathy, lumbar region
CPT/HCPCS: 97110; 97162; 97164

== ENCOUNTER → 2021-09-22 | Outpatient (CLI) | payer MEDICARE, MEDICAID, SELFPAY | END | disposition home or self-care (01) | PROVIDERS: PCP Family Medicine; Visit Provider Family Medicine | DX: R31.9 Hematuria, unspecified (principal) | CPT/HCPCS: 87077; 87086; 87088; 87186 ==

== ENCOUNTER → 2021-09-29 | Outpatient (CLI) | payer MEDICARE, MEDICAID, SELFPAY ==
[2021-09-29 14:40] LABS: Erythrocyte Sedimentation Rate 33 mm/hr (0-30)
[2021-09-29 14:42] LABS: Absolute Lymphocyte Count 1.21 X10^3/uL (0.83-4.51); Basophil# 0.02 X10^3/uL; Basophil% 0.3 % (0-1); Eosinophil# 0.09 X10^3/uL; Eosinophils% 1.6 % (0-5); Hematocrit 33.9 % (37-47); Hemoglobin 11.2 g/dL (12.0-15.0); Lymphocyte # 1.21 X10^3/ul (0.83-4.51); Lymphocyte % 20.9 % (19-41); Mean Corpuscular Hgb 30.8 pg (27.0-32.0); Mean Corpuscular Volume 93.1 fL (81-99); Mean Platelet Vol. 10.9 fl (6.2-12.0); Monocyte# 0.45 X10^3/uL; Monocyte% 7.8 % (0-10); NRBC Flagged by Analyzer 0 % (0-5); Neutrophil % 68.9 % (47-70); Platelet Count 165 K/mm3 (150-450); RBC Distribution Width SD 47.7 fl (35.1-43.9); Red Blood Count 3.64 M/mm3 (4.2-5.4); White Blood Count 5.8 K/mm3 (4.4-11.0)
[2021-09-29 15:05] LABS: Albumin, Serum 3.3 g/dL (3.2-5.0); BUN 20 mg/dL (7-18); BUN/Creat Ratio 19.2 RATIO (10-20); Creatinine, Serum 1.04 mg/dL (0.55-1.02); EST Glomerular Filtration Rate 61 mL/min (>60); Est Glom Filt Rate - Afr Amer 74 mL/min (>60); Globulin 3.9 g/dL (2.2-4.2); Glucose 98 mg/dL (74-106); Protein, Total 7.2 g/dL (6.4-8.2)
[2021-09-29 15:06] LABS: ALB/GLOB Ratio 0.8 RATIO (0.9-2.4); AST(SGOT) 9 U/L (15-37); Alanine Aminotransfer ALT/SGPT 36 U/L (13-56); Alkaline Phosphatase 114 U/L (45-117); Anion Gap 4 (5-15); Calcium,Total 8.8 mg/dL (8.5-10.1); Chloride 108 mmol/L (98-107); LDH 201 U/L (84-246); Potassium 3.8 mmol/L (3.5-5.1); Sodium Level 140 mmol/L (136-145)
[2021-10-03 15:07] LABS: Anti-Centromere B Ab <0.2 AI (0.0-0.9); Anti-Chromatin <0.2 AI (0.0-0.9); Anti-Jo <0.2 AI (0.0-0.9); Anti-Scleroderma-70 AB <0.2 AI (0.0-0.9); RNP Ab 0.4 AI (0.0-0.9); SJOGREN'S Anti-SS-A test < 0.2 AI (0.0-0.9); SJOGREN'S Anti-SS-B test < 0.2 AI (0.0-0.9); Smith Ab <0.2 AI (0.0-0.9)
[2021-10-03 20:01] LABS: Anti-dsDNA Ab <1 IU/mL (0-9)
[2021-10-03 20:08] LABS: Calprotectin, Stool 79 ug/g (0-120)
[2021-10-03 20:08] LABS: Endomysial Antibody IgA Negative (Negative); Immunoglobulin A 213 mg/dL (87-352); t-Transglutaminase IgA <2 U/mL (0-3)
[2021-10-08 15:07] LABS: Albumin 3.4 g/dL (2.9-4.4); Alpha-1-Globulins 0.3 g/dL (0.0-0.4); Cytoplasmic Ab (C-ANCA) <1:20 titer (Neg:<1:20); Gamma Globulin 1.4 g/dL (0.4-1.8); Immunoglobulin A 230 mg/dL (87-352); Immunoglobulin E 5 IU/mL (6-495); Immunoglobulin G 1148 mg/dL (586-1602); Immunoglobulin M 315 mg/dL (26-217); PROEL- TOTAL PROTEIN 7.1 g/dL (6.0-8.5)
[2021-10-08 21:23] LABS: Perinuclear Ab (P-ANCA) <1:20 titer (Neg:<1:20)
== END | disposition home or self-care (01) ==
LOC: LAB 13:41
PROVIDERS: PCP Family Medicine; Visit Provider Internal Medicine Gastroenterology
DX: R19.7 Diarrhea, unspecified (principal); K58.9 Irritable bowel syndrome, unspecified; I87.2 Venous insufficiency (chronic) (peripheral)
CPT/HCPCS: 36415; 80053; 82784; 82785; 83516; 83615; 83630; 83993; 84165; 85025; 85652; 86140; 86225; 86235; 86255; 86256; 86334; 87177; 87209; 87329; 87493; 87506

== ENCOUNTER 2021-10-14 11:00 | Outpatient (RCR) | payer MEDICARE, MEDICAID, SELFPAY ==
[2021-09-21 01:00] VITALS: BP 156/65; PULSE 100; RESP 18; TEMP 36.3; BMI 112.3
[2021-09-23 12:23] VITALS: BP 149/72; PULSE 88; TEMP 36.6; BMI 112.3
--- NOTE | 2021-09-23 12:49 | PCM.WC.PN ---
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 The incision was left to heal through secondary intention. She had a wound vac for several weeks after her surgery but when she was finally discharged from the hospital into a skilled facility in the end of January the wound vac was discontinued as the wound had healed enough to be able to be packed with silver alginate dressing. She has had healing of the incisional wound completely several different times from February and March but since April the area at the superior part of the incision has reopened and remains an ulcer. She has used Aquacel Extra dressings with changes daily covered with gauze or silicone bordered dressing for the last 12 weeks with minimal improvement. The area drains moderate to heavy at times. She is on chronic anticoagulation with warfarin and is obese. She has no odor, erythema or other signs of infection. Subjective aNdja Navarro returns today for follow up of nonhealing ulcer of her abdominal incision. It is not fully healed. The ulcer on her left buttock is still not healed but she has not been able to do dressings as prescribed. It is near the site of a previous fistula. She has been using hydrogel daily and covering with gauze or silicone foam bordered dressing to her abdominal wound. She denies fever, chills, erythema, odor. Objective Data Objective Data Vital Signs: Vital Signs Temp Pulse Resp BP 97.9 F 88 18 149/72 H 09/23/21 12:23 09/23/21 12:23 09/21/21 01:00 09/23/21 12:23 Weight: 335 kg Body Mass Index (BMI) 112.3 Physical Exam Const alert, oriented x3 and no apparent distress General Appearance: cooperative and comfortable HEENT normocephalic and head/scalp atraumatic Resp normal respiratory effort Effort and Inspection: able to speak in complete sentences Cardio regular rate and regular rhythm Skin Wounds: wounds noted Wound Narrative: as in clinical panel Psych mental status grossly normal, thought process normal, cooperative and affect normal Debridement Note Debridement Note Wound debrided: abdomen Laterality: Not Applicable Type of Debridement: Excisional debridement Anesthesia Used: 4% Lidocaine Solution and 5% Lidocaine Gel Depth: Down to and including healthy tissue and in the subcutaneous layer Percentage of wound debrided: 100 Instrument Used: 3mm curette Tissue Removed: Yellow slough, devitalized tissue Severity: Fat Layer Exposed Amount of bleeding with debridement: Mild Bleeding Controlled with: Compression and gauze Patient tolerated procedure: Patient tolerated procedure well Post-Debridement Measurements and Additional Note: Post-Debridement Measurements/Treatment CIARRA - Nurse 1 - General Ulcer Assessment Start: 09/23/21 11:29 Freq: Status: Active Protocol: NILTON Activity Type Activity Date Activity User E-Sign Co-Sign Detail Recorded Client Recorded Date Recorded By Document 09/23/21 12:23 PIPER [id number] 09/23/21 12:26 PIPER 09/23/21 12:23 CIARRA - Today's Visit Information Type of service Follow-up Visit (Physician/SELF PAY SPECIALIST ) Arrival Mode Ambulatory, Walker Patient Identification Verified (Name & Yes ) Patient Requires Transmission-Based No Precautions Safety Precautions NA Height and Weight Body Mass Index (BMI) 112.3 BMI Classification Obese Vital Signs Temperature (97.8 F-99.1 F) 97.9 F Temperature Source Temporal Pulse Rate (60-100) 88 Pulse Location Monitor Blood Pressure (90/60-120/80) 149/72 H Blood Pressure Mean (mm Hg) 97 Source Monitor History Since Last Visit- (Skip if this is Patient's initial visit) Have you changed medications since your No last visit? Any new allergies or adverse reactions No Had a fall/change in ADL's that may No increase risk of falls Signs or symptoms of abuse and/or No neglect since last visit Have you been in the hospital since your No last visit? Has dressing in place as prescribed Yes Has compression in place as prescribed N/A Has offloadiing in place as prescribed N/A Experienced any changes in pain level or No management Left Footwear Regular Shoe Right Footwear Regular Shoe Pain Scale: 0-10 Numeric Is Patient Pain Free? Yes - Nurse 1 - General Ulcer Measurement Start: 09/23/21 11:29 Freq: Status: Active Protocol: Activity Type Activity Date Activity User E-Sign Co-Sign Detail Recorded Client Recorded Date Recorded By Document 09/23/21 12:23 PIPER [id number] 09/23/21 12:26 PIPER 09/23/21 12:23 Wound Center Nurse 1 #14 left buttock -Combined with other wound No -Current Size (cm) - Length 0.1 -Current Size (cm) - Width 0.1 -Current Size (cm) - Depth 0.1 -Total Square Cm 0.01 -Photo Taken No -Epithelialization Large 67-100% -Tunneling No -Undermining/Tunneling No -Circular Undermining No -Exudate Amt None Present -Granulation Amt Large (67-100%) -Granulation Quality [place] -Necrosis Amt None Present (0 %) -Structure Exposed N/A -Texture (Meg-wound Skin Appearance) Assessed, Scarring -Moisture (Meg-wound Skin Appearance) No Abnormality, Assessed -Color (Meg-wound Skin Appearance) No Abnormality, Assessed -Temperature (Meg-wound Skin No Abnormality Appearance) (Pt Warm) -Tenderness on Palpation (Meg-wound No Skin Appearance) -Ulcer Cleansing Rinsed/ Irrigated with Saline -Foul Odor after Cleansing No -Anesthetic Used 4% Lidocaine Solution 13. Abdomen -Combined with other wound No -Current Size (cm) - Length 0.1 -Current Size (cm) - Width 0.1 -Current Size (cm) - Depth 0.1 -Total Square Cm 0.01 -Photo Taken No -Tunneling No -Undermining/Tunneling No -Circular Undermining No -Change in Wound Grade/Stage No -Exudate Amt None Present -Granulation Amt None Present (0 %) -Granulation Quality N/A -Slough/Fibrin No -Necrosis Amt None Present (0 %) -Structure Exposed N/A -Texture (Meg-wound Skin Appearance) Assessed, Scarring -Moisture (Meg-wound Skin Appearance) No Abnormality, Assessed -Color (Meg-wound Skin Appearance) No Abnormality, Assessed -Temperature (Meg-wound Skin No Abnormality Appearance) (Pt Warm) -Tenderness on Palpation (Meg-wound No Skin Appearance) -Ulcer Cleansing Rinsed/ Irrigated with Saline -Foul Odor after Cleansing No -Anesthetic Used 4% Lidocaine Solution Lower Limb Edema Present No WC - Nurse 2 - General Ulcer CM Notes Start: 09/23/21 11:29 Freq: Status: Active Protocol: Activity Type Activity Date Activity User E-Sign Co-Sign Detail Recorded Client Recorded Date Recorded By Document 09/23/21 11:29 MW [id number] 09/23/21 11:46 MW 09/23/21 11:29 Wound Center Nurse 2 #14 left buttock -Time 11:34 -Correct Patient Yes -Correct Side, Site, Position Yes -Correct Procedure Yes -Procedure Performed Yes -Type of Procedure Debridement -Clinical Debridement Subcutaneous -Tissue Removed Subcutaneous -Post Debridement (cm) - Length 0.2 -Post Debridement (cm) - Width 0.2 -Post Debridement (cm) - Depth 2.6 -Total Square (Post) (cm) 0.04 -Area of Debridement (cm) - Length 0.2 -Area of Debridement (cm) - Width 0.2 -Total Square (Area) (cm) 0.04 -Tunneling No -Undermining/Tunneling No -Circular Undermining No -Wound/Ulcer Outcome Not Healed -Ulcer Cleansing Rinsed/ Irrigated with Saline -Foul Odor after Cleansing No -Bioengineered Tissue No -Bleeding Controlled with Pressure -Treatment Response Procedure Tolerated Well -Offloading No -Debridement - Subq, 1st 20sq cm No 13. Abdomen -Time 11:30 -Correct Patient Yes -Correct Side, Site, Position Yes -Correct Procedure Yes -Procedure Performed Yes -Type of Procedure Debridement -Clinical Debridement Subcutaneous -Tissue Removed Subcutaneous -Post Debridement (cm) - Length 0.5 -Post Debridement (cm) - Width 0.2 -Post Debridement (cm) - Depth 0.1 -Total Square (Post) (cm) 0.10 -Area of Debridement (cm) - Length 0.5 -Area of Debridement (cm) - Width 0.2 -Total Square (Area) (cm) 0.10 -Tunneling No -Undermining/Tunneling No -Circular Undermining No -Wound/Ulcer Outcome Not Healed -Ulcer Cleansing Rinsed/ Irrigated with Saline -Foul Odor after Cleansing No -Bioengineered Tissue No -Bleeding Controlled with Pressure -Treatment Response Procedure Tolerated Well -Offloading No -Debridement - Subq, 1st 20sq cm Yes Pain Scale: 0-10 Numeric Is Patient Pain Free? Yes WC - Nurse 3 - General Ulcer D/C NN Start: 09/23/21 11:29 Freq: Status: Active Protocol: Activity Type Activity Date Activity User E-Sign Co-Sign Detail Recorded Client Recorded Date Recorded By Document 09/23/21 11:57 RB [id number] 09/23/21 12:00 RB 09/23/21 11:57 Wound Care Nurse 3 #14 left buttock -Primary Dressing Applied Promogran Inez Matter -Primary Dressing Covered/Secured with Dry Gauze, Secured with Tape -Promogran Inez Matter 1 13. Abdomen -Primary Dressing Applied Mepilex Border -Other Dressing hydrogel -Mepilex Border 1 Treatment Response Procedure Tolerated Well Pain Scale: 0-10 Numeric Is Patient Pain Free? Yes WC - Visit Discharge Discharge Condition Stable Ambulatory Status Ambulatory, Walker Transportation Private Auto Medication Reconcilliation completed & No provided to patient/care provider Clinical Summary of Care Provided Yes Additional Wound Wound debrided: left buttock Laterality: Left Type of Debridement: Excisional debridement Anesthesia Used: 4% Lidocaine Solution and 5% Lidocaine Gel Depth: Down to and including healthy tissue and in the subcutaneous layer Percentage of wound debrided: 100 Instrument Used: 3mm curette Tissue Removed: Yellow slough, devitalized tissue Severity: Fat Layer Exposed Amount of bleeding with debridement: Mild Bleeding Controlled with: Compression and gauze Patient tolerated procedure: Patient tolerated procedure well Assessment/Plan Assessment/Plan (1) Decubitus ulcer of left buttock, stage 2: CODE(S): L89.322 - Pressure ulcer of left buttock, stage 2 (2) Postoperative wound dehiscence: CODE(S): T81.31XA - Disruption of external operation (surgical) wound, not elsewhere classified, initial encounter QUALIFIERS: Encounter type: subsequent encounter Qualified Code(s): T81.31XD - Disruption of external operation (surgical) wound, not elsewhere classified, subsequent encounter (3) Ulcer of abdomen wall with fat layer exposed: CODE(S): L98.492 - Non-pressure chronic ulcer of skin of other sites with fat layer exposed (4) Obesity: CODE(S): E66.9 - Obesity, unspecified QUALIFIERS: Body mass index: BMI 50.0-59.9 Obesity type: unspecified obesity type Obesity classification: adult class 3 (BMI >= 40) Serious obesity comorbidity presence: without serious comorbidity Qualified Code(s): E66.01 - Morbid (severe) obesity due to excess calories; Z68.43 - Body mass index [BMI] 50.0-59.9, adult PLAN: Melanie's ulcers of her abdomen and left buttock was evaluated and debrided today at the wound healing center. She has had labs approx. 2 months ago to evaluate her nutrition and for diabetes which nutrition is adequate and A1C was less than 6.0%. Her left buttock ulcer will be treated with Inez packed into the ulcer cavity and covered with gauze and tape. She has been applying hydrogel and covering with adaptic and gauze or silicone foam bordered dressing. Will have her continue to do dressings with hydrogel covered with silicone bordered foam dressing if the bandage gets wet or soiled. Due to her inability to heal with standard wound care, I believe that it is medically necessary for Melanie to be treated with an advanced wound healing product such as Epifix in order to heal and keep her ulcer healed. We discussed offloading of the site which she has been doing and we also encouraged increased protein intake, weight loss and proper cleansing of the ulcer to facilitate healing. She was advised to call if there are any increased odor, pain, drainage or erythema. She will return in 1 week for wound care.
[2021-09-30 11:05] VITALS: BP 146/72; PULSE 100; RESP 18; TEMP 36.2; BMI 112.3
--- NOTE | 2021-09-30 13:48 | PN.PCM_ITS ---
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 The incision was left to heal through secondary intention. She had a wound vac for several weeks after her surgery but when she was finally discharged from the hospital into a skilled facility in the end of January the wound vac was discontinued as the wound had healed enough to be able to be packed with silver alginate dressing. She has had healing of the incisional wound completely several different times from February and March but since April the area at the superior part of the incision has reopened and remains an ulcer. She has used Aquacel Extra dressings with changes daily covered with gauze or silicone bordered dressing for the last 12 weeks with minimal improvement. The area drains moderate to heavy at times. She is on chronic anticoagulation with warfarin and is obese. She has no odor, erythema or other signs of infection. Subjective Nadja Navarro returns today for follow up of nonhealing ulcer of her abdominal incision. It is not fully healed. The ulcer on her left buttock is still not healed but she has not been able to do dressings as prescribed. It is near the site of a previous fistula. She has been using hydrogel daily and covering with gauze or silicone foam bordered dressing to her abdominal wound. She denies fever, chills, erythema, odor. Objective Data Objective Data Vital Signs: Vital Signs Temp Pulse Resp BP 97.2 F L 100 18 146/72 H 09/30/21 11:05 09/30/21 11:05 09/30/21 11:05 09/30/21 11:05 Weight: 335 kg Body Mass Index (BMI) 112.3 Physical Exam Const alert, oriented x3 and no apparent distress General Appearance: cooperative and comfortable HEENT normocephalic and head/scalp atraumatic Resp normal respiratory effort Effort and Inspection: able to speak in complete sentences Cardio regular rate and regular rhythm Skin Wounds: wounds noted Wound Narrative: as in clinical panel Psych mental status grossly normal, thought process normal, cooperative and affect normal Debridement Note Debridement Note Wound debrided: left buttock Laterality: Left Type of Debridement: Selective debridement Anesthesia Used: 4% Lidocaine Solution Depth: Down to and including healthy tissue and in the subcutaneous layer Percentage of wound debrided: 100 Instrument Used: - (probe) Tissue Removed: Yellow slough, devitalized tissue Severity: Fat Layer Exposed Amount of bleeding with debridement: Mild Bleeding Controlled with: Compression and gauze Patient tolerated procedure: Patient tolerated procedure well Post-Debridement Measurements and Additional Note: Post-Debridement Measurements/Treatment WC - Nurse 1 - General Ulcer Assessment Start: 09/23/21 11:29 Freq: Status: Active Protocol: NILTON Activity Type Activity Date Activity User E-Sign Co-Sign Detail Recorded Client Recorded Date Recorded By Document 09/23/21 12:23 AK [id number] 09/23/21 12:26 AK Document 09/30/21 11:05 RB [id number] 09/30/21 11:11 RB 09/23/21 09/30/21 12:23 11:05 CIARRA - Today's Visit Information Type of service Follow-up Visit Follow-up Visit (Physician/ASSISTANT PROFESSOR OF ENGLISH (Physician/ASSISTANT PROFESSOR OF ENGLISH ) ) Arrival Mode Ambulatory, Ambulatory, Walker Walker Transfer Assistance None Patient Identification Verified (Name & Yes Yes ) Patient Requires Transmission-Based No No Precautions Safety Precautions NA Height and Weight Body Mass Index (BMI) 112.3 112.3 BMI Classification Obese Obese Vital Signs Temperature (97.8 F-99.1 F) 97.9 F 97.2 F L Temperature Source Temporal Temporal Pulse Rate (60-100) 88 100 Pulse Location Monitor Monitor Respiratory Rate (12-18) 18 Respiratory rate source Observation Blood Pressure (90/60-120/80) 149/72 H 146/72 H Blood Pressure Mean (mm Hg) 97 96 Source Monitor Monitor Position Semi-Fowlers Blood Pressure Location Left Arm History Since Last Visit- (Skip if this is Patient's initial visit) Have you changed medications since your No No last visit? Any new allergies or adverse reactions No No Had a fall/change in ADL's that may No No increase risk of falls Signs or symptoms of abuse and/or No No neglect since last visit Have you been in the hospital since your No No last visit? Has dressing in place as prescribed Yes Yes Has compression in place as prescribed N/A No Has offloadiing in place as prescribed N/A No Experienced any changes in pain level or No No management Left Footwear Regular Shoe Regular Shoe Right Footwear Regular Shoe Regular Shoe Pain Scale: 0-10 Numeric Is Patient Pain Free? Yes Yes WC - Nurse 1 - General Ulcer Measurement Start: 09/23/21 11:29 Freq: Status: Active Protocol: Activity Type Activity Date Activity User E-Sign Co-Sign Detail Recorded Client Recorded Date Recorded By Document 09/23/21 12:23 AK [id number] 09/23/21 12:26 AK Document 09/30/21 11:05 RB [id number] 09/30/21 11:11 RB 09/23/21 09/30/21 12:23 11:05 Wound Center Nurse 1 #14 left buttock -Combined with other wound No No -Current Size (cm) - Length 0.1 0.1 -Current Size (cm) - Width 0.1 0.1 -Current Size (cm) - Depth 0.1 0.1 -Total Square Cm 0.01 0.01 -Photo Taken No -Epithelialization Large 67-100% -Tunneling No No -Undermining/Tunneling No No -Circular Undermining No No -Exudate Amt None Present Medium -Exudate Type Serosanguineous -Wound Margin Distinct, Outline Attached -Granulation Amt Large (67-100%) Medium (34-66%) -Granulation Quality [place] -Slough/Fibrin Yes -Necrosis Amt None Present (0 Small (1-33%) %) -Necrotic Tissue Type Adherent Slough -Structure Exposed N/A N/A -Texture (Meg-wound Skin Appearance) Assessed, Assessed Scarring -Moisture (Meg-wound Skin Appearance) No Abnormality, Assessed Assessed -Color (Meg-wound Skin Appearance) No Abnormality, Assessed Assessed -Temperature (Meg-wound Skin No Abnormality No Abnormality Appearance) (Pt Warm) (Pt Warm) -Tenderness on Palpation (Meg-wound No No Skin Appearance) -Ulcer Cleansing Rinsed/ Wound Cleanser Irrigated with Saline -Foul Odor after Cleansing No No -Anesthetic Used 4% Lidocaine 5% Lidocaine Solution Gel 13. Abdomen -Combined with other wound No No -Current Size (cm) - Length 0.1 0.1 -Current Size (cm) - Width 0.1 0.1 -Current Size (cm) - Depth 0.1 0.1 -Total Square Cm 0.01 0.01 -Photo Taken No Yes -Tunneling No No -Undermining/Tunneling No No -Circular Undermining No No -Change in Wound Grade/Stage No -Exudate Amt None Present Small -Exudate Type Serosanguineous -Wound Margin Distinct, Outline Attached -Granulation Amt None Present (0 Medium (34-66%) %) -Granulation Quality N/A [place] -Slough/Fibrin No Yes -Necrosis Amt None Present (0 Large (67-100%) %) -Necrotic Tissue Type Adherent Slough -Structure Exposed N/A N/A -Texture (Meg-wound Skin Appearance) Assessed, Assessed, Scarring Scarring -Moisture (Meg-wound Skin Appearance) No Abnormality, Assessed Assessed -Color (Meg-wound Skin Appearance) No Abnormality, Assessed Assessed -Temperature (Meg-wound Skin No Abnormality No Abnormality Appearance) (Pt Warm) (Pt Warm) -Tenderness on Palpation (Meg-wound No No Skin Appearance) -Ulcer Cleansing Rinsed/ Wound Cleanser Irrigated with Saline -Foul Odor after Cleansing No No -Anesthetic Used 4% Lidocaine 5% Lidocaine Solution Gel Lower Limb Edema Present No WC - Nurse 2 - General Ulcer CM Notes Start: 09/23/21 11:29 Freq: Status: Active Protocol: Activity Type Activity Date Activity User E-Sign Co-Sign Detail Recorded Client Recorded Date Recorded By Document 09/23/21 11:29 MW [id number] 09/23/21 11:46 MW Document 09/30/21 11:19 MW [id number] 09/30/21 11:38 MW 09/23/21 09/30/21 11:29 11:19 Wound Center Nurse 2 #14 left buttock -Time 11:34 11:32 -Correct Patient Yes Yes -Correct Side, Site, Position Yes Yes -Correct Procedure Yes Yes -Procedure Performed Yes No -Type of Procedure Debridement -Clinical Debridement Subcutaneous -Tissue Removed Subcutaneous -Post Debridement (cm) - Length 0.2 0.2 -Post Debridement (cm) - Width 0.2 0.2 -Post Debridement (cm) - Depth 2.6 2.5 -Total Square (Post) (cm) 0.04 0.04 -Area of Debridement (cm) - Length 0.2 -Area of Debridement (cm) - Width 0.2 -Total Square (Area) (cm) 0.04 -Tunneling No No -Undermining/Tunneling No No -Circular Undermining No No -Wound/Ulcer Outcome Not Healed Not Healed -Ulcer Cleansing Rinsed/ Rinsed/ Irrigated with Irrigated with Saline Saline -Foul Odor after Cleansing No No -Bioengineered Tissue No No -Bleeding Controlled with Pressure Pressure -Treatment Response Procedure Procedure Tolerated Well Tolerated Well -Offloading No No -Debridement - Subq, 1st 20sq cm No No 13. Abdomen -Time 11:30 11:33 -Correct Patient Yes Yes -Correct Side, Site, Position Yes Yes -Correct Procedure Yes Yes -Procedure Performed Yes Yes -Type of Procedure Debridement Debridement -Clinical Debridement Subcutaneous Subcutaneous -Tissue Removed Subcutaneous Subcutaneous -Post Debridement (cm) - Length 0.5 0.3 -Post Debridement (cm) - Width 0.2 0.2 -Post Debridement (cm) - Depth 0.1 0.1 -Total Square (Post) (cm) 0.10 0.06 -Area of Debridement (cm) - Length 0.5 0.3 -Area of Debridement (cm) - Width 0.2 0.2 -Total Square (Area) (cm) 0.10 0.06 -Tunneling No No -Undermining/Tunneling No No -Circular Undermining No No -Wound/Ulcer Outcome Not Healed Not Healed -Ulcer Cleansing Rinsed/ Rinsed/ Irrigated with Irrigated with Saline Saline -Foul Odor after Cleansing No No -Bioengineered Tissue No No -Bleeding Controlled with Pressure Pressure -Treatment Response Procedure Procedure Tolerated Well Tolerated Well -Offloading No No -Debridement - Subq, 1st 20sq cm Yes Yes Pain Scale: 0-10 Numeric Is Patient Pain Free? Yes Yes WC - Nurse 3 - General Ulcer D/C NN Start: 09/23/21 11:29 Freq: Status: Active Protocol: Activity Type Activity Date Activity User E-Sign Co-Sign Detail Recorded Client Recorded Date Recorded By Document 09/23/21 11:57 RB [id number] 09/23/21 12:00 RB Document 09/30/21 11:44 AK [id number] 09/30/21 11:44 AK 09/23/21 09/30/21 11:57 11:44 Wound Care Nurse 3 #14 left buttock -Primary Dressing Applied Promogran Inez Matter -Primary Dressing Covered/Secured with Dry Gauze, Secured with Tape -Promogran Inez Matter 1 13. Abdomen -Ulcer Cleansing Rinsed/ Irrigated with Saline -Foul Odor after Cleansing No -Negative Pressure Wound Therapy N/A -Primary Dressing Applied Mepilex Border C Hydrogel ($), Mepilex Border -Other Dressing hydrogel -Mepilex Border 1 1 Treatment Response Procedure Tolerated Well Pain Scale: 0-10 Numeric Is Patient Pain Free? Yes Yes WC - Visit Discharge Discharge Condition Stable Ambulatory Status Ambulatory, Walker Transportation Private Auto Medication Reconcilliation completed & No provided to patient/care provider Clinical Summary of Care Provided Yes Additional Wound Wound debrided: abdomen Laterality: Not Applicable Type of Debridement: Excisional debridement Anesthesia Used: 4% Lidocaine Solution and 5% Lidocaine Gel Depth: Down to and including healthy tissue and in the subcutaneous layer Percentage of wound debrided: 100 Instrument Used: 3mm curette Tissue Removed: Yellow slough, devitalized tissue Severity: Fat Layer Exposed Amount of bleeding with debridement: Mild Bleeding Controlled with: Compression and gauze Patient tolerated procedure: Patient tolerated procedure well Assessment/Plan Assessment/Plan (1) Decubitus ulcer of left buttock, stage 2: CODE(S): L89.322 - Pressure ulcer of left buttock, stage 2 (2) Postoperative wound dehiscence: CODE(S): T81.31XA - Disruption of external operation (surgical) wound, not elsewhere classified, initial encounter QUALIFIERS: Encounter type: subsequent encounter Qualified Code(s): T81.31XD - Disruption of external operation (surgical) wound, not elsewhere classified, subsequent encounter (3) Ulcer of abdomen wall with fat layer exposed: CODE(S): L98.492 - Non-pressure chronic ulcer of skin of other sites with fat layer exposed (4) Obesity: CODE(S): E66.9 - Obesity, unspecified QUALIFIERS: Obesity type: unspecified obesity type Obesity classification: adult class 3 (BMI >= 40) Serious obesity comorbidity presence: without serious comorbidity Body mass index: BMI 50.0-59.9 Qualified Code(s): E66.01 - Morbid (severe) obesity due to excess calories; Z68.43 - Body mass index [BMI] 50.0-59.9, adult PLAN: Tyeshas ulcers of her abdomen and left buttock were evaluated and debrided today at the wound healing center. She has had labs approx. 2 months ago to evaluate her nutrition and for diabetes which nutrition is adequate and A1C was less than 6.0%. Her left buttock ulcer will be treated with Inez packed into the ulcer cavity and covered with gauze and tape. She has been applying hydrogel and covering with adaptic and gauze or silicone foam bordered dressing. Will have her continue to do dressings with hydrogel covered with silicone bordered foam dressing if the bandage gets wet or soiled. We discussed offloading of the site which she has been doing and we also encouraged increased protein intake, weight loss and proper cleansing of the ulcer to facilitate healing. She was advised to call if there are any increased odor, pain, drainage or erythema. She will return in 1 week for wound care.
[2021-10-07 11:04] VITALS: BP 129/75; PULSE 109; RESP 18; TEMP 36.1; BMI 112.3
--- NOTE | 2021-10-07 11:59 | PN.PCM_ITS ---
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 The incision was left to heal through secondary intention. She had a wound vac for several weeks after her surgery but when she was finally discharged from the hospital into a skilled facility in the end of January the wound vac was discontinued as the wound had healed enough to be able to be packed with silver alginate dressing. She has had healing of the incisional wound completely several different times from February and March but since April the area at the superior part of the incision has reopened and remains an ulcer. She has used Aquacel Extra dressings with changes daily covered with gauze or silicone bordered dressing for the last 12 weeks with minimal improvement. The area drains moderate to heavy at times. She is on chronic anticoagulation with warfarin and is obese. She has no odor, erythema or other signs of infection. Subjective Nadja Navarro returns today for follow up of nonhealing ulcer of her abdominal incision. It is not fully healed. The ulcer on her left buttock is still not healed but she has not been able to do dressings as prescribed. It is near the site of a previous fistula. She has been using hydrogel daily and covering with gauze or silicone foam bordered dressing to her abdominal wound. She denies fever, chills, erythema, odor. Objective Data Objective Data Vital Signs: Vital Signs Temp Pulse Resp BP 97 F L 109 H 18 129/75 H 10/07/21 11:04 10/07/21 11:04 10/07/21 11:04 10/07/21 11:04 Oxygen Delivery Method Room Air Weight: 335 kg Body Mass Index (BMI) 112.3 Physical Exam Const alert, oriented x3 and no apparent distress General Appearance: cooperative and comfortable HEENT normocephalic and head/scalp atraumatic Resp normal respiratory effort Effort and Inspection: able to speak in complete sentences Cardio regular rate and regular rhythm Skin Wounds: wounds noted Wound Narrative: as in clinical panel Psych mental status grossly normal, thought process normal, cooperative and affect normal Debridement Note Debridement Note Wound debrided: abdomen Laterality: Not Applicable Type of Debridement: Selective debridement Anesthesia Used: 4% Lidocaine Solution and 5% Lidocaine Gel Depth: Down to and including healthy tissue and in the subcutaneous layer Percentage of wound debrided: 100 Instrument Used: 3mm curette Tissue Removed: Yellow slough, devitalized tissue Severity: Fat Layer Exposed Amount of bleeding with debridement: Mild Bleeding Controlled with: Compression and gauze Patient tolerated procedure: Patient tolerated procedure well Post-Debridement Measurements and Additional Note: Post-Debridement Measurements/Treatment WC - Nurse 1 - General Ulcer Assessment Start: 09/23/21 11:29 Freq: Status: Active Protocol: NILTON Activity Type Activity Date Activity User E-sign Co-sign Detail Recorded Client Recorded Date Recorded By Document 09/23/21 12:23 AK [id number] 09/23/21 12:26 AK Document 09/30/21 11:05 RB [id number] 09/30/21 11:11 RB Document 10/07/21 11:04 MT [id number] 10/07/21 11:14 MT 09/23/21 09/30/21 10/07/21 12:23 11:05 11:04 - Today's Visit Information Type of service Follow-up Visit Follow-up Visit Initial Visit (Physician/COMPLIANCE QUALITY PERFORMANCE ANALYST (Physician/COMPLIANCE QUALITY PERFORMANCE ANALYST ) ) Arrival Mode Ambulatory, Ambulatory, Ambulatory, Walker Walker Walker Transfer Assistance None Patient Identification Verified (Name & Yes Yes Yes ) Patient Requires Transmission-Based No No Precautions Safety Precautions NA Height and Weight Body Mass Index (BMI) 112.3 112.3 112.3 BMI Classification Obese Obese Obese Vital Signs Temperature (97.8 F-99.1 F) 97.9 F 97.2 F L 97 F L Temperature Source Temporal Temporal Temporal Pulse Rate (60-100) 88 100 109 H Pulse Location Monitor Monitor Monitor Respiratory Rate (12-18) 18 18 Respiratory rate source Observation Observation Oxygen Delivery Method Room Air Blood Pressure (90/60-120/80) 149/72 H 146/72 H 129/75 H Blood Pressure Mean (mm Hg) 97 96 93 Source Monitor Monitor Monitor Position Semi-Fowlers Sitting Blood Pressure Location Left Arm Right Forearm History Since Last Visit- (Skip if this is Patient's initial visit) Have you changed medications since your No No last visit? Any new allergies or adverse reactions No No Had a fall/change in ADL's that may No No increase risk of falls Signs or symptoms of abuse and/or No No neglect since last visit Have you been in the hospital since your No No last visit? Has dressing in place as prescribed Yes Yes Yes Has compression in place as prescribed N/A No Yes Has offloadiing in place as prescribed N/A No Yes Experienced any changes in pain level or No No Yes management Left Footwear Regular Shoe Regular Shoe Regular Shoe Right Footwear Regular Shoe Regular Shoe Regular Shoe Pain Scale: 0-10 Numeric Is Patient Pain Free? Yes Yes Yes WC - Nurse 1 - General Ulcer Measurement Start: 09/23/21 11:29 Freq: Status: Active Protocol: Activity Type Activity Date Activity User E-sign Co-sign Detail Recorded Client Recorded Date Recorded By Document 09/23/21 12:23 AK [id number] 09/23/21 12:26 AK Document 09/30/21 11:05 RB [id number] 09/30/21 11:11 RB Document 10/07/21 11:04 [place] [id number] 10/07/21 11:14 [place] 09/23/21 09/30/21 10/07/21 12:23 11:05 11:04 Wound Center Nurse 1 #14 left buttock -Combined with other wound No No -Current Size (cm) - Length 0.1 0.1 0.1 -Current Size (cm) - Width 0.1 0.1 0.1 -Current Size (cm) - Depth 0.1 0.1 0.1 -Total Square Cm 0.01 0.01 0.01 -Photo Taken No -Epithelialization Large 67-100% -Tunneling No No -Undermining/Tunneling No No -Circular Undermining No No -Exudate Amt None Present Medium -Exudate Type Serosanguineous -Wound Margin Distinct, Outline Attached -Granulation Amt Large (67-100%) Medium (34-66%) -Granulation Quality [place] -Slough/Fibrin Yes -Necrosis Amt None Present (0 Small (1-33%) %) -Necrotic Tissue Type Adherent Slough -Structure Exposed N/A N/A -Texture (Meg-wound Skin Appearance) Assessed, Assessed Scarring -Moisture (Meg-wound Skin Appearance) No Abnormality, Assessed Assessed -Color (Meg-wound Skin Appearance) No Abnormality, Assessed Assessed -Temperature (Meg-wound Skin No Abnormality No Abnormality Appearance) (Pt Warm) (Pt Warm) -Tenderness on Palpation (Meg-wound No No Skin Appearance) -Ulcer Cleansing Rinsed/ Wound Cleanser Irrigated with Saline -Foul Odor after Cleansing No No -Anesthetic Used 4% Lidocaine 5% Lidocaine Solution Gel 13. Abdomen -Combined with other wound No No -Current Size (cm) - Length 0.1 0.1 0.1 -Current Size (cm) - Width 0.1 0.1 0.1 -Current Size (cm) - Depth 0.1 0.1 0.1 -Total Square Cm 0.01 0.01 0.01 -Date of Last Picture (Recall this 10/07/21 field) -Photo Taken No Yes Yes -Epithelialization Large 67-100% -Tunneling No No -Undermining/Tunneling No No -Circular Undermining No No -Change in Wound Grade/Stage No -Exudate Amt None Present Small None Present -Exudate Type Serosanguineous -Wound Margin Distinct, Flat & Intact Outline Attached -Granulation Amt None Present (0 Medium (34-66%) Large (67-100%) %) -Granulation Quality N/A [place] -Slough/Fibrin No Yes Yes -Necrosis Amt None Present (0 Large (67-100%) %) -Necrotic Tissue Type Adherent Slough -Structure Exposed N/A N/A -Texture (Meg-wound Skin Appearance) Assessed, Assessed, Assessed Scarring Scarring -Moisture (Meg-wound Skin Appearance) No Abnormality, Assessed Assessed Assessed -Color (Meg-wound Skin Appearance) No Abnormality, Assessed Assessed Assessed -Temperature (Meg-wound Skin No Abnormality No Abnormality No Abnormality Appearance) (Pt Warm) (Pt Warm) (Pt Warm) -Tenderness on Palpation (Meg-wound No No No Skin Appearance) -Ulcer Cleansing Rinsed/ Wound Cleanser Rinsed/ Irrigated with Irrigated with Saline Saline -Foul Odor after Cleansing No No No -Anesthetic Used 4% Lidocaine 5% Lidocaine 4% Lidocaine Solution Gel Solution Lower Limb Edema Present No NA WC - Nurse 2 - General Ulcer CM Notes Start: 09/23/21 11:29 Freq: Status: Active Protocol: Activity Type Activity Date Activity User E-sign Co-sign Detail Recorded Client Recorded Date Recorded By Document 09/23/21 11:29 MW [id number] 09/23/21 11:46 MW Document 09/30/21 11:19 MW [id number] 09/30/21 11:38 MW Document 10/07/21 11:25 MW [id number] 10/07/21 11:39 MW 09/23/21 09/30/21 10/07/21 11:29 11:19 11:25 Wound Center Nurse 2 #14 left buttock -Time 11:34 11:32 11:27 -Correct Patient Yes Yes Yes -Correct Side, Site, Position Yes Yes Yes -Correct Procedure Yes Yes Yes -Procedure Performed Yes No No -Type of Procedure Debridement -Clinical Debridement Subcutaneous -Tissue Removed Subcutaneous -Post Debridement (cm) - Length 0.2 0.2 0.2 -Post Debridement (cm) - Width 0.2 0.2 0.2 -Post Debridement (cm) - Depth 2.6 2.5 1.4 -Total Square (Post) (cm) 0.04 0.04 0.04 -Area of Debridement (cm) - Length 0.2 -Area of Debridement (cm) - Width 0.2 -Total Square (Area) (cm) 0.04 -Tunneling No No -Undermining/Tunneling No No -Circular Undermining No No -Wound/Ulcer Outcome Not Healed Not Healed Not Healed -Ulcer Cleansing Rinsed/ Rinsed/ Rinsed/ Irrigated with Irrigated with Irrigated with Saline Saline Saline -Foul Odor after Cleansing No No No -Bioengineered Tissue No No No -Bleeding Controlled with Pressure Pressure NA -Treatment Response Procedure Procedure Procedure Tolerated Well Tolerated Well Tolerated Well -Offloading No No No -Debridement - Subq, 1st 20sq cm No No 13. Abdomen -Time 11:30 11:33 11:26 -Correct Patient Yes Yes Yes -Correct Side, Site, Position Yes Yes Yes -Correct Procedure Yes Yes Yes -Procedure Performed Yes Yes Yes -Type of Procedure Debridement Debridement Debridement -Clinical Debridement Subcutaneous Subcutaneous Subcutaneous -Tissue Removed Subcutaneous Subcutaneous Subcutaneous -Post Debridement (cm) - Length 0.5 0.3 0.4 -Post Debridement (cm) - Width 0.2 0.2 0.2 -Post Debridement (cm) - Depth 0.1 0.1 0.1 -Total Square (Post) (cm) 0.10 0.06 0.08 -Area of Debridement (cm) - Length 0.5 0.3 0.4 -Area of Debridement (cm) - Width 0.2 0.2 0.2 -Total Square (Area) (cm) 0.10 0.06 0.08 -Tunneling No No No -Undermining/Tunneling No No No -Circular Undermining No No No -Wound/Ulcer Outcome Not Healed Not Healed Not Healed -Ulcer Cleansing Rinsed/ Rinsed/ Rinsed/ Irrigated with Irrigated with Irrigated with Saline Saline Saline -Foul Odor after Cleansing No No No -Bioengineered Tissue No No No -Bleeding Controlled with Pressure Pressure Pressure -Treatment Response Procedure Procedure Procedure Tolerated Well Tolerated Well Tolerated Well -Offloading No No No -Debridement - Subq, 1st 20sq cm Yes Yes Yes Pain Scale: 0-10 Numeric Is Patient Pain Free? Yes Yes Yes - Nurse 3 - General Ulcer D/C NN Start: 09/23/21 11:29 Freq: Status: Active Protocol: Activity Type Activity Date Activity User E-sign Co-sign Detail Recorded Client Recorded Date Recorded By Document 09/23/21 11:57 [id number] 09/23/21 12:00 RB Document 09/30/21 11:44 AK [id number] 09/30/21 11:44 AK Document 10/07/21 11:46 AK [id number] 10/07/21 11:47 AK 09/23/21 09/30/21 10/07/21 11:57 11:44 11:46 Wound Care Nurse 3 #14 left buttock -Primary Dressing Applied Promogran Inez Matter -Primary Dressing Covered/Secured with Dry Gauze, Secured with Tape -Promogran Inez Matter 1 13. Abdomen -Ulcer Cleansing Rinsed/ Rinsed/ Irrigated with Irrigated with Saline Saline -Foul Odor after Cleansing No No -Negative Pressure Wound Therapy N/A N/A -Primary Dressing Applied Mepilex Border C Hydrogel ($), C Hydrogel ($), Mepilex Border Mepilex Border -Other Dressing hydrogel -Primary Dressing Covered/Secured with Dry Gauze, Secured with Tape -Mepilex Border 1 1 1 -Promogran Inez Matter 1 Treatment Response Procedure Tolerated Well Pain Scale: 0-10 Numeric Is Patient Pain Free? Yes Yes Yes WC - Visit Discharge Discharge Condition Stable Stable Ambulatory Status Ambulatory, Ambulatory, Walker Walker Transportation Private Auto Private Auto Medication Reconcilliation completed & No Yes provided to patient/care provider Clinical Summary of Care Provided Yes Yes Additional Wound Wound debrided: left buttock Laterality: Left Type of Debridement: Excisional debridement Anesthesia Used: 4% Lidocaine Solution Depth: Down to and including healthy tissue and in the subcutaneous layer Percentage of wound debrided: 100 Instrument Used: - (probe) Tissue Removed: Yellow slough, devitalized tissue Severity: Fat Layer Exposed Amount of bleeding with debridement: Mild Bleeding Controlled with: Compression and gauze Patient tolerated procedure: Patient tolerated procedure well Assessment/Plan Assessment/Plan (1) Decubitus ulcer of left buttock, stage 2: CODE(S): L89.322 - Pressure ulcer of left buttock, stage 2 (2) Postoperative wound dehiscence: CODE(S): T81.31XA - Disruption of external operation (surgical) wound, not elsewhere classified, initial encounter QUALIFIERS: Encounter type: subsequent encounter Qualified Code(s): T81.31XD - Disruption of external operation (surgical) wound, not elsewhere classified, subsequent encounter (3) Ulcer of abdomen wall with fat layer exposed: CODE(S): L98.492 - Non-pressure chronic ulcer of skin of other sites with fat layer exposed (4) Obesity: CODE(S): E66.9 - Obesity, unspecified QUALIFIERS: Obesity type: unspecified obesity type Obesity classification: adult class 3 (BMI >= 40) Serious obesity comorbidity presence: without serious comorbidity Body mass index: BMI 50.0-59.9 Qualified Code(s): E66.01 - Morbid (severe) obesity due to excess calories; Z68.43 - Body mass index [BMI] 50.0-59.9, adult PLAN: Plan Melanie's ulcers of her abdomen and left buttock were evaluated and debrided today at the wound healing center. She has had labs approx. 2 months ago to evaluate her nutrition and for diabetes which nutrition is adequate and A1C was less than 6.0%. Her left buttock ulcer will be treated with Inez packed into the ulcer cavity and covered with gauze and tape. She has been applying hydrogel and covering with adaptic and gauze or silicone foam bordered dressing. Will have her continue to do dressings with hydrogel and add Inez and covered with silicone bordered foam dressing if the bandage gets wet or soiled. We discussed offloading of the site which she has been doing and we also encouraged increased protein intake, weight loss and proper cleansing of the ulcer to facilitate healing. She was advised to call if there are any increased odor, pain, drainage or erythema. She will return in 1 week for wound care.
[2021-10-14 11:30] VITALS: BP 116/48; PULSE 107; RESP 18; TEMP 36.6; BMI 112.3
--- NOTE | 2021-10-14 12:47 | PN.PCM_ITS ---
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 The incision was left to heal through secondary intention. She had a wound vac for several weeks after her surgery but when she was finally discharged from the hospital into a skilled facility in the end of January the wound vac was discontinued as the wound had healed enough to be able to be packed with silver alginate dressing. She has had healing of the incisional wound completely several different times from February and March but since April the area at the superior part of the incision has reopened and remains an ulcer. She has used Aquacel Extra dressings with changes daily covered with gauze or silicone bordered dressing for the last 12 weeks with minimal improvement. The area drains moderate to heavy at times. She is on chronic anticoagulation with warfarin and is obese. She has no odor, erythema or other signs of infection. Nadja Navarro returns today for follow up of nonhealing ulcer of her abdominal incision. It is not fully healed. The ulcer on her left buttock is still not healed but she has not been able to do dressings as prescribed. It is near the site of a previous fistula. She has been using hydrogel daily and covering with gauze or silicone foam bordered dressing to her abdominal wound. She denies fever, chills, erythema, odor. Objective Data Objective Data Vital Signs: Vital Signs Temp Pulse Resp BP 98 F 107 H 18 116/48 L 10/14/21 11:30 10/14/21 11:30 10/14/21 11:30 10/14/21 11:30 Oxygen Delivery Method Room Air Weight: 335 kg Body Mass Index (BMI) 112.3 Physical Exam Const alert, oriented x3 and no apparent distress General Appearance: cooperative and comfortable HEENT normocephalic and head/scalp atraumatic Resp normal respiratory effort Effort and Inspection: able to speak in complete sentences Cardio regular rate and regular rhythm Skin Wounds: wounds noted Wound Narrative: as in clinical panel Psych mental status grossly normal, thought process normal, cooperative and affect normal Debridement Note Debridement Note Wound debrided: abdomen Laterality: Not Applicable Type of Debridement: Excisional debridement Anesthesia Used: 4% Lidocaine Solution and 5% Lidocaine Gel Depth: Down to and including healthy tissue and in the subcutaneous layer Percentage of wound debrided: 100 Instrument Used: 3mm curette Tissue Removed: yellow slough, devitalized tissue Severity: Fat Layer Exposed Amount of bleeding with debridement: Mild Bleeding Controlled with: Compression and gauze Patient tolerated procedure: Patient tolerated procedure well Post-Debridement Measurements and Additional Note: Post-Debridement Measurements/Treatment - Nurse 1 - General Ulcer Assessment Start: 09/23/21 11:29 Freq: Status: Active Protocol: NILTON Activity Type Activity Date Activity User E-sign Co-sign Detail Recorded Client Recorded Date Recorded By Document 09/23/21 12:23 AK [id number] 09/23/21 12:26 AK Document 09/30/21 11:05 RB [id number] 09/30/21 11:11 RB Document 10/07/21 11:04 MT [id number] 10/07/21 11:14 MT Document 10/14/21 11:30 RB [id number] 10/14/21 11:32 RB 09/23/21 09/30/21 10/07/21 12:23 11:05 11:04 - Today's Visit Information Type of service Follow-up Visit Follow-up Visit Initial Visit (Physician/ADJUNCT PHILOSOPHY FACULTY (Physician/ADJUNCT PHILOSOPHY FACULTY ) ) Arrival Mode Ambulatory, Ambulatory, Ambulatory, Walker Walker Walker Transfer Assistance None Patient Identification Verified (Name & Yes Yes Yes ) Patient Requires Transmission-Based No No Precautions Safety Precautions NA Height and Weight Body Mass Index (BMI) 112.3 112.3 112.3 BMI Classification Obese Obese Obese Vital Signs Temperature (97.8 F-99.1 F) 97.9 F 97.2 F L 97 F L Temperature Source Temporal Temporal Temporal Pulse Rate (60-100) 88 100 109 H Pulse Location Monitor Monitor Monitor Respiratory Rate (12-18) 18 18 Respiratory rate source Observation Observation Oxygen Delivery Method Room Air Blood Pressure (90/60-120/80) 149/72 H 146/72 H 129/75 H Blood Pressure Mean (mm Hg) 97 96 93 Source Monitor Monitor Monitor Position Semi-Fowlers Sitting Blood Pressure Location Left Arm Right Forearm History Since Last Visit- (Skip if this is Patient's initial visit) Have you changed medications since your No No last visit? Any new allergies or adverse reactions No No Had a fall/change in ADL's that may No No increase risk of falls Signs or symptoms of abuse and/or No No neglect since last visit Have you been in the hospital since your No No last visit? Has dressing in place as prescribed Yes Yes Yes Has compression in place as prescribed N/A No Yes Has offloadiing in place as prescribed N/A No Yes Experienced any changes in pain level or No No Yes management Left Footwear Regular Shoe Regular Shoe Regular Shoe Right Footwear Regular Shoe Regular Shoe Regular Shoe Pain Scale: 0-10 Numeric Is Patient Pain Free? Yes Yes Yes 10/14/21 11:30 WC - Today's Visit Information Type of service Follow-up Visit (Physician/ADJUNCT PHILOSOPHY FACULTY ) Arrival Mode Ambulatory, Walker Transfer Assistance None Patient Identification Verified (Name & ) Patient Requires Transmission-Based No Precautions Safety Precautions Height and Weight Body Mass Index (BMI) 112.3 BMI Classification Obese Vital Signs Temperature (97.8 F-99.1 F) 98 F Temperature Source Temporal Pulse Rate (60-100) 107 H Pulse Location Monitor Respiratory Rate (12-18) 18 Respiratory rate source Observation Oxygen Delivery Method Blood Pressure (90/60-120/80) 116/48 L Blood Pressure Mean (mm Hg) 70 Source Monitor Position Semi-Fowlers Blood Pressure Location Left Arm History Since Last Visit- (Skip if this is Patient's initial visit) Have you changed medications since your No last visit? Any new allergies or adverse reactions No Had a fall/change in ADL's that may No increase risk of falls Signs or symptoms of abuse and/or No neglect since last visit Have you been in the hospital since your No last visit? Has dressing in place as prescribed Yes Has compression in place as prescribed No Has offloadiing in place as prescribed No Experienced any changes in pain level or No management Left Footwear Regular Shoe Right Footwear Regular Shoe Pain Scale: 0-10 Numeric Is Patient Pain Free? Yes - Nurse 1 - General Ulcer Measurement Start: 09/23/21 11:29 Freq: Status: Active Protocol: Activity Type Activity Date Activity User E-sign Co-sign Detail Recorded Client Recorded Date Recorded By Document 09/23/21 12:23 AK [id number] 09/23/21 12:26 AK Document 09/30/21 11:05 RB [id number] 09/30/21 11:11 RB Document 10/07/21 11:04 MT [id number] 10/07/21 11:14 MT Document 10/14/21 11:30 RB [id number] 10/14/21 11:32 RB 09/23/21 09/30/21 10/07/21 12:23 11:05 11:04 Wound Center Nurse 1 #14 left buttock -Combined with other wound No No -Current Size (cm) - Length 0.1 0.1 0.1 -Current Size (cm) - Width 0.1 0.1 0.1 -Current Size (cm) - Depth 0.1 0.1 0.1 -Total Square Cm 0.01 0.01 0.01 -Photo Taken No -Epithelialization Large 67-100% -Tunneling No No -Undermining/Tunneling No No -Circular Undermining No No -Exudate Amt None Present Medium -Exudate Type Serosanguineous -Wound Margin Distinct, Outline Attached -Granulation Amt Large (67-100%) Medium (34-66%) -Granulation Quality [place] -Slough/Fibrin Yes -Necrosis Amt None Present (0 Small (1-33%) %) -Necrotic Tissue Type Adherent Slough -Structure Exposed N/A N/A -Texture (Meg-wound Skin Appearance) Assessed, Assessed Scarring -Moisture (Meg-wound Skin Appearance) No Abnormality, Assessed Assessed -Color (Meg-wound Skin Appearance) No Abnormality, Assessed Assessed -Temperature (Meg-wound Skin No Abnormality No Abnormality Appearance) (Pt Warm) (Pt Warm) -Tenderness on Palpation (Meg-wound No No Skin Appearance) -Ulcer Cleansing Rinsed/ Wound Cleanser Irrigated with Saline -Foul Odor after Cleansing No No -Anesthetic Used 4% Lidocaine 5% Lidocaine Solution Gel 13. Abdomen -Combined with other wound No No -Current Size (cm) - Length 0.1 0.1 0.1 -Current Size (cm) - Width 0.1 0.1 0.1 -Current Size (cm) - Depth 0.1 0.1 0.1 -Total Square Cm 0.01 0.01 0.01 -Date of Last Picture (Recall this 10/07/21 field) -Photo Taken No Yes Yes -Epithelialization Large 67-100% -Tunneling No No -Undermining/Tunneling No No -Circular Undermining No No -Change in Wound Grade/Stage No -Exudate Amt None Present Small None Present -Exudate Type Serosanguineous -Wound Margin Distinct, Flat & Intact Outline Attached -Granulation Amt None Present (0 Medium (34-66%) Large (67-100%) %) -Granulation Quality N/A [place] -Slough/Fibrin No Yes Yes -Necrosis Amt None Present (0 Large (67-100%) %) -Necrotic Tissue Type Adherent Slough -Structure Exposed N/A N/A -Texture (Meg-wound Skin Appearance) Assessed, Assessed, Assessed Scarring Scarring -Moisture (Meg-wound Skin Appearance) No Abnormality, Assessed Assessed Assessed -Color (Meg-wound Skin Appearance) No Abnormality, Assessed Assessed Assessed -Temperature (Meg-wound Skin No Abnormality No Abnormality No Abnormality Appearance) (Pt Warm) (Pt Warm) (Pt Warm) -Tenderness on Palpation (Meg-wound No No No Skin Appearance) -Ulcer Cleansing Rinsed/ Wound Cleanser Rinsed/ Irrigated with Irrigated with Saline Saline -Foul Odor after Cleansing No No No -Anesthetic Used 4% Lidocaine 5% Lidocaine 4% Lidocaine Solution Gel Solution Lower Limb Edema Present No NA 10/14/21 11:30 Wound Center Nurse 1 #14 left buttock -Combined with other wound -Current Size (cm) - Length -Current Size (cm) - Width -Current Size (cm) - Depth -Total Square Cm -Photo Taken -Epithelialization -Tunneling -Undermining/Tunneling -Circular Undermining -Exudate Amt -Exudate Type -Wound Margin -Granulation Amt -Granulation Quality -Slough/Fibrin -Necrosis Amt -Necrotic Tissue Type -Structure Exposed -Texture (Meg-wound Skin Appearance) -Moisture (Meg-wound Skin Appearance) -Color (Meg-wound Skin Appearance) -Temperature (Meg-wound Skin Appearance) -Tenderness on Palpation (Meg-wound Skin Appearance) -Ulcer Cleansing -Foul Odor after Cleansing -Anesthetic Used 13. Abdomen -Combined with other wound No -Current Size (cm) - Length 0.4 -Current Size (cm) - Width 0.2 -Current Size (cm) - Depth 0.1 -Total Square Cm 0.08 -Date of Last Picture (Recall this field) -Photo Taken -Epithelialization -Tunneling No -Undermining/Tunneling No -Circular Undermining No -Change in Wound Grade/Stage -Exudate Amt Small -Exudate Type Serosanguineous -Wound Margin Distinct, Outline Attached -Granulation Amt Medium (34-66%) -Granulation Quality [place] -Slough/Fibrin Yes -Necrosis Amt Small (1-33%) -Necrotic Tissue Type Adherent Slough -Structure Exposed N/A -Texture (Meg-wound Skin Appearance) Scarring -Moisture (Meg-wound Skin Appearance) Assessed -Color (Meg-wound Skin Appearance) Assessed -Temperature (Meg-wound Skin No Abnormality Appearance) (Pt Warm) -Tenderness on Palpation (Meg-wound No Skin Appearance) -Ulcer Cleansing Wound Cleanser -Foul Odor after Cleansing No -Anesthetic Used 5% Lidocaine Gel Lower Limb Edema Present WC - Nurse 2 - General Ulcer CM Notes Start: 09/23/21 11:29 Freq: Status: Active Protocol: Activity Type Activity Date Activity User E-sign Co-sign Detail Recorded Client Recorded Date Recorded By Document 09/23/21 11:29 MW [id number] 09/23/21 11:46 MW Document 09/30/21 11:19 MW [id number] 09/30/21 11:38 MW Document 10/07/21 11:25 MW [id number] 10/07/21 11:39 MW Document 10/14/21 11:33 MW [id number] 10/14/21 11:55 MW 09/23/21 09/30/21 10/07/21 11:29 11:19 11:25 Wound Center Nurse 2 #14 left buttock -Time 11:34 11:32 11:27 -Correct Patient Yes Yes Yes -Correct Side, Site, Position Yes Yes Yes -Correct Procedure Yes Yes Yes -Procedure Performed Yes No No -Type of Procedure Debridement -Clinical Debridement Subcutaneous -Tissue Removed Subcutaneous -Post Debridement (cm) - Length 0.2 0.2 0.2 -Post Debridement (cm) - Width 0.2 0.2 0.2 -Post Debridement (cm) - Depth 2.6 2.5 1.4 -Total Square (Post) (cm) 0.04 0.04 0.04 -Area of Debridement (cm) - Length 0.2 -Area of Debridement (cm) - Width 0.2 -Total Square (Area) (cm) 0.04 -Tunneling No No -Undermining/Tunneling No No -Circular Undermining No No -Wound/Ulcer Outcome Not Healed Not Healed Not Healed -Ulcer Cleansing Rinsed/ Rinsed/ Rinsed/ Irrigated with Irrigated with Irrigated with Saline Saline Saline -Foul Odor after Cleansing No No No -Bioengineered Tissue No No No -Bleeding Controlled with Pressure Pressure NA -Treatment Response Procedure Procedure Procedure Tolerated Well Tolerated Well Tolerated Well -Offloading No No No -Debridement - Subq, 1st 20sq cm No No 13. Abdomen -Time 11:30 11:33 11:26 -Correct Patient Yes Yes Yes -Correct Side, Site, Position Yes Yes Yes -Correct Procedure Yes Yes Yes -Procedure Performed Yes Yes Yes -Type of Procedure Debridement Debridement Debridement -Clinical Debridement Subcutaneous Subcutaneous Subcutaneous -Tissue Removed Subcutaneous Subcutaneous Subcutaneous -Post Debridement (cm) - Length 0.5 0.3 0.4 -Post Debridement (cm) - Width 0.2 0.2 0.2 -Post Debridement (cm) - Depth 0.1 0.1 0.1 -Total Square (Post) (cm) 0.10 0.06 0.08 -Area of Debridement (cm) - Length 0.5 0.3 0.4 -Area of Debridement (cm) - Width 0.2 0.2 0.2 -Total Square (Area) (cm) 0.10 0.06 0.08 -Tunneling No No No -Undermining/Tunneling No No No -Circular Undermining No No No -Wound/Ulcer Outcome Not Healed Not Healed Not Healed -Ulcer Cleansing Rinsed/ Rinsed/ Rinsed/ Irrigated with Irrigated with Irrigated with Saline Saline Saline -Foul Odor after Cleansing No No No -Bioengineered Tissue No No No -Bleeding Controlled with Pressure Pressure Pressure -Treatment Response Procedure Procedure Procedure Tolerated Well Tolerated Well Tolerated Well -Offloading No No No -Debridement - Subq, 1st 20sq cm Yes Yes Yes Pain Scale: 0-10 Numeric Is Patient Pain Free? Yes Yes Yes 10/14/21 11:33 Wound Center Nurse 2 #14 left buttock -Time 11:35 -Correct Patient Yes -Correct Side, Site, Position Yes -Correct Procedure Yes -Procedure Performed No -Type of Procedure -Clinical Debridement -Tissue Removed -Post Debridement (cm) - Length 0.2 -Post Debridement (cm) - Width 0.2 -Post Debridement (cm) - Depth 1.0 -Total Square (Post) (cm) 0.04 -Area of Debridement (cm) - Length -Area of Debridement (cm) - Width -Total Square (Area) (cm) -Tunneling No -Undermining/Tunneling No -Circular Undermining No -Wound/Ulcer Outcome Not Healed -Ulcer Cleansing Rinsed/ Irrigated with Saline -Foul Odor after Cleansing -Bioengineered Tissue No -Bleeding Controlled with NA -Treatment Response -Offloading -Debridement - Subq, 1st 20sq cm 13. Abdomen -Time 11:34 -Correct Patient Yes -Correct Side, Site, Position Yes -Correct Procedure Yes -Procedure Performed Yes -Type of Procedure Debridement -Clinical Debridement Subcutaneous -Tissue Removed Subcutaneous -Post Debridement (cm) - Length 1.1 -Post Debridement (cm) - Width 0.5 -Post Debridement (cm) - Depth 0.1 -Total Square (Post) (cm) 0.55 -Area of Debridement (cm) - Length 1.1 -Area of Debridement (cm) - Width 0.5 -Total Square (Area) (cm) 0.55 -Tunneling No -Undermining/Tunneling No -Circular Undermining No -Wound/Ulcer Outcome Not Healed -Ulcer Cleansing Rinsed/ Irrigated with Saline -Foul Odor after Cleansing No -Bioengineered Tissue No -Bleeding Controlled with Pressure -Treatment Response Procedure Tolerated Well -Offloading No -Debridement - Subq, 20sq cm Yes Pain Scale: 0-10 Numeric Is Patient Pain Free? Yes WC - Nurse 3 - General Ulcer D/C NN Start: 09/23/21 11:29 Freq: Status: Active Protocol: Activity Type Activity Date Activity User E-sign Co-sign Detail Recorded Client Recorded Date Recorded By Document 09/23/21 11:57 RB [id number] 09/23/21 12:00 RB Document 09/30/21 11:44 AK [id number] 09/30/21 11:44 AK Document 10/07/21 11:46 AK [id number] 10/07/21 11:47 AK Document 10/14/21 11:55 MW [id number] 10/14/21 12:16 MW 09/23/21 09/30/21 10/07/21 11:57 11:44 11:46 Wound Care Nurse 3 #14 left buttock -Ulcer Cleansing -Foul Odor after Cleansing -Negative Pressure Wound Therapy -Primary Dressing Applied Promogran Inez Matter -Primary Dressing Covered/Secured with Dry Gauze, Secured with Tape -Promogran Inez Matter 1 13. Abdomen -Ulcer Cleansing Rinsed/ Rinsed/ Irrigated with Irrigated with Saline Saline -Foul Odor after Cleansing No No -Negative Pressure Wound Therapy N/A N/A -Primary Dressing Applied Mepilex Border C Hydrogel ($), C Hydrogel ($), Mepilex Border Mepilex Border -Other Dressing hydrogel -Primary Dressing Covered/Secured with Dry Gauze, Secured with Tape -Mepilex Border 1 1 1 -Promogran Inez Matter 1 Treatment Response Procedure Tolerated Well Pain Scale: 0-10 Numeric Is Patient Pain Free? Yes Yes Yes Teaching: Wound Center Dressing Your Wound -Person Taught -Teaching Method -Response to teaching WC - Visit Discharge Discharge Condition Stable Stable Ambulatory Status Ambulatory, Ambulatory, Walker Walker Transportation Private Auto Private Auto Accompanied by Medication Reconcilliation completed & No Yes provided to patient/care provider Clinical Summary of Care Provided Yes Yes 10/14/21 11:55 Wound Care Nurse 3 #14 left buttock -Ulcer Cleansing Rinsed/ Irrigated with Saline -Foul Odor after Cleansing No -Negative Pressure Wound Therapy N/A -Primary Dressing Applied Promogran Inez Matter -Primary Dressing Covered/Secured with Dry Gauze, Secured with Tape -Promogran Inez Matter 1 13. Abdomen -Ulcer Cleansing Rinsed/ Irrigated with Saline -Foul Odor after Cleansing No -Negative Pressure Wound Therapy N/A -Primary Dressing Applied -Other Dressing c.hydrogel -Primary Dressing Covered/Secured with Dry Gauze, Secured with Tape -Mepilex Border -Promogran Inez Matter Treatment Response Procedure Tolerated Well Pain Scale: 0-10 Numeric Is Patient Pain Free? Yes Teaching: Wound Center Dressing Your Wound -Person Taught Patient -Teaching Method Discussion -Response to teaching Verbalize understanding WC - Visit Discharge Discharge Condition Stable Ambulatory Status Ambulatory Transportation Private Auto Accompanied by self Medication Reconcilliation completed & No provided to patient/care provider Clinical Summary of Care Provided Yes Additional Wound Wound debrided: left buttock Laterality: Left Type of Debridement: Excisional debridement Anesthesia Used: 4% Lidocaine Solution Depth: Down to and including healthy tissue and in the subcutaneous layer Percentage of wound debrided: 100 Instrument Used: 3mm curette Tissue Removed: Yellow slough, devitalized tissue Severity: Fat Layer Exposed Amount of bleeding with debridement: Mild Bleeding Controlled with: Compression and gauze Patient tolerated procedure: Patient tolerated procedure well Assessment/Plan Assessment/Plan (1) Decubitus ulcer of left buttock, stage 2: CODE(S): L89.322 - Pressure ulcer of left buttock, stage 2 (2) Postoperative wound dehiscence: CODE(S): T81.31XA - Disruption of external operation (surgical) wound, not elsewhere classified, initial encounter QUALIFIERS: Encounter type: subsequent encounter Qualified Code(s): T81.31XD - Disruption of external operation (surgical) wound, not elsewhere classified, subsequent encounter (3) Ulcer of abdomen wall with fat layer exposed: CODE(S): L98.492 - Non-pressure chronic ulcer of skin of other sites with fat layer exposed (4) Obesity: CODE(S): E66.9 - Obesity, unspecified QUALIFIERS: Body mass index: BMI 50.0-59.9 Obesity classification: adult class 3 (BMI >= 40) Obesity type: unspecified obesity type Serious obesity comorbidity presence: without serious comorbidity Qualified Code(s): E66.01 - Morbid (severe) obesity due to excess calories; Z68.43 - Body mass index [BMI] 50.0-59.9, adult PLAN: Plan Melanie's ulcers of her abdomen and left buttock were evaluated and debrided today at the wound healing center. She has had labs approx. 2 months ago to evaluate her nutrition and for diabetes which nutrition is adequate and A1C was less than 6.0%. Her left buttock ulcer will be treated with Inez packed into the ulcer cavity and covered with gauze and tape. She has been applying hydrogel and covering with adaptic and gauze or silicone foam bordered dressing. Will have her continue to do dressings with hydrogel and add Inez and covered with silicone bordered foam dressing if the bandage gets wet or soiled. We discussed offloading of the site which she has been doing and we also encouraged increased protein intake, weight loss and proper cleansing of the ulcer to facilitate healing. She was advised to call if there are any increased odor, pain, drainage or erythema. She will return in 1 week for wound care.
== END 2021-10-20 23:59 | disposition home or self-care (01) ==
LOC: WC 11:00
PROVIDERS: PCP Family Medicine; Visit Provider Family Medicine
DX: T81.31XA Disruption of external operation (surgical) wound, not elsewhere classified, initial encounter (principal); L89.322 Pressure ulcer of left buttock, stage 2; L98.492 Non-pressure chronic ulcer of skin of other sites with fat layer exposed; E66.01 Morbid (severe) obesity due to excess calories; Z68.45 Body mass index [BMI] 70 or greater, adult; Z79.01 Long term (current) use of anticoagulants; Z79.82 Long term (current) use of aspirin; Z79.899 Other long term (current) drug therapy; Z90.49 Acquired absence of other specified parts of digestive tract
CPT/HCPCS: 11042

== ENCOUNTER 2021-11-18 11:00 | Outpatient (RCR) | payer MEDICARE, MEDICAID, SELFPAY ==
[2021-10-21 00:35] VITALS: BP 116/48; PULSE 107; RESP 18; TEMP 36.6; BMI 112.3
[2021-10-21 11:11] VITALS: BP 150/66; PULSE 107; RESP 18; TEMP 36.1; BMI 112.3
--- NOTE | 2021-10-21 13:23 | PN.PCM_ITS ---
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 The incision was left to heal through secondary intention. She had a wound vac for several weeks after her surgery but when she was finally discharged from the hospital into a skilled facility in the end of January the wound vac was discontinued as the wound had healed enough to be able to be packed with silver alginate dressing. She has had healing of the incisional wound completely several different times from February and March but since April the area at the superior part of the incision has reopened and remains an ulcer. She has used Aquacel Extra dressings with changes daily covered with gauze or silicone bordered dressing for the last 12 weeks with minimal improvement. The area drains moderate to heavy at times. She is on chronic anticoagulation with warfarin and is obese. She has no odor, erythema or other signs of infection. Subjective Nadja Navarro returns today for follow up of nonhealing ulcer of her abdominal incision. It is not fully healed. The ulcer on her left buttock is still not healed but she has not been able to do dressings as prescribed. It is near the site of a previous fistula. She has been using hydrogel daily and covering with gauze or silicone foam bordered dressing to her abdominal wound. She denies fever, chills, erythema, odor. Objective Data Objective Data Vital Signs: Vital Signs Temp Pulse Resp BP 97 F L 107 H 18 150/66 H 10/21/21 11:11 10/21/21 11:11 10/21/21 11:11 10/21/21 11:11 Weight: 335 kg Body Mass Index (BMI) 112.3 Physical Exam Const alert, oriented x3 and no apparent distress General Appearance: cooperative and comfortable HEENT normocephalic and head/scalp atraumatic Resp normal respiratory effort Effort and Inspection: able to speak in complete sentences Cardio regular rate and regular rhythm Skin Wounds: wounds noted Wound Narrative: as in clinical panel Psych mental status grossly normal, thought process normal, cooperative and affect normal Debridement Note Debridement Note Wound debrided: abdomen Laterality: Not Applicable Type of Debridement: Excisional debridement Anesthesia Used: 4% Lidocaine Solution and 5% Lidocaine Gel Depth: Down to and including healthy tissue and in the subcutaneous layer Percentage of wound debrided: 100 Instrument Used: 3mm curette Tissue Removed: Yellow slough, devitalized tissue Severity: Fat Layer Exposed Amount of bleeding with debridement: Mild Bleeding Controlled with: Compression and gauze Patient tolerated procedure: Patient tolerated procedure well Post-Debridement Measurements and Additional Note: Post-Debridement Measurements/Treatment WC - Nurse 1 - General Ulcer Assessment Start: 10/21/21 11:11 Freq: Status: Active Protocol: NILTON Activity Type Activity Date Activity User E-sign Co-sign Detail Recorded Client Recorded Date Recorded By Document 10/21/21 11:11 DL [id number] 10/21/21 11:16 DL 10/21/21 11:11 WC - Today's Visit Information Type of service Follow-up Visit (Physician/[employer] TECHNICIAN ) Arrival Mode Ambulatory, Walker Transfer Assistance None Patient Identification Verified (Name & Yes ) Patient Requires Transmission-Based No Precautions Height and Weight Body Mass Index (BMI) 112.3 BMI Classification Obese Vital Signs Temperature (97.8 F-99.1 F) 97 F L Temperature Source Temporal Pulse Rate (60-100) 107 H Pulse Location Monitor Respiratory Rate (12-18) 18 Respiratory rate source Observation Blood Pressure (90/60-120/80) 150/66 H Blood Pressure Mean (mm Hg) 94 Source Monitor Position Semi-Fowlers Blood Pressure Location Left Arm History Since Last Visit- (Skip if this is Patient's initial visit) Have you changed medications since your No last visit? Any new allergies or adverse reactions No Had a fall/change in ADL's that may No increase risk of falls Signs or symptoms of abuse and/or No neglect since last visit Have you been in the hospital since your No last visit? Has dressing in place as prescribed Yes Has compression in place as prescribed No Has offloadiing in place as prescribed No Experienced any changes in pain level or No management Left Footwear Regular Shoe Right Footwear Regular Shoe Pain Scale: 0-10 Numeric Is Patient Pain Free? No abd -Description Aching -Intensity 5 -Duration (hours) Chronic -Pain Behavior Rubbing Site -Pain Aggravating Factors Exercise/ Activity -Alleviating Factors/Interventions Medication -Effectiveness of Alleviating Factor/ Moderately Intervention effective - Nurse 1 - General Ulcer Measurement Start: 10/21/21 11:11 Freq: Status: Active Protocol: Activity Type Activity Date Activity User E-sign Co-sign Detail Recorded Client Recorded Date Recorded By Document 10/21/21 11:11 RB [id number] 10/21/21 11:16 RB 10/21/21 11:11 Wound Center Nurse 1 13. Abdomen -Combined with other wound No -Current Size (cm) - Length 0.7 -Current Size (cm) - Width 0.4 -Current Size (cm) - Depth 0.1 -Total Square Cm 0.28 -Photo Taken Yes -Tunneling No -Undermining/Tunneling No -Circular Undermining No -Exudate Amt Medium -Exudate Type Serosanguineous -Wound Margin Distinct, Outline Attached -Granulation Amt Medium (34-66%) -Granulation Quality [place] -Slough/Fibrin Yes -Necrosis Amt Medium (34-66%) -Necrotic Tissue Type Adherent Slough -Structure Exposed N/A -Texture (Meg-wound Skin Appearance) Assessed, Scarring -Moisture (Meg-wound Skin Appearance) Assessed -Color (Meg-wound Skin Appearance) Assessed -Temperature (Meg-wound Skin No Abnormality Appearance) (Pt Warm) -Tenderness on Palpation (Meg-wound No Skin Appearance) -Ulcer Cleansing Wound Cleanser -Foul Odor after Cleansing No -Anesthetic Used 5% Lidocaine Gel WC - Nurse 2 - General Ulcer CM Notes Start: 10/21/21 11:11 Freq: Status: Active Protocol: Activity Type Activity Date Activity User E-sign Co-sign Detail Recorded Client Recorded Date Recorded By Document 10/21/21 11:24 MW [id number] 10/21/21 11:45 MW 10/21/21 11:24 Wound Center Nurse 2 #14 left buttock -Time 11:24 -Correct Patient Yes -Correct Side, Site, Position Yes -Correct Procedure Yes -Procedure Performed No -Post Debridement (cm) - Length 0.2 -Post Debridement (cm) - Width 0.2 -Post Debridement (cm) - Depth 2.3 -Total Square (Post) (cm) 0.04 -Tunneling No -Undermining/Tunneling No -Circular Undermining No -Wound/Ulcer Outcome Not Healed -Ulcer Cleansing Rinsed/ Irrigated with Saline 13. Abdomen -Time 11:25 -Correct Patient Yes -Correct Side, Site, Position Yes -Correct Procedure Yes -Procedure Performed Yes -Type of Procedure Debridement -Clinical Debridement Subcutaneous -Tissue Removed Subcutaneous -Post Debridement (cm) - Length 0.3 -Post Debridement (cm) - Width 0.2 -Post Debridement (cm) - Depth 0.1 -Total Square (Post) (cm) 0.06 -Area of Debridement (cm) - Length 0.3 -Area of Debridement (cm) - Width 0.2 -Total Square (Area) (cm) 0.06 -Tunneling No -Undermining/Tunneling No -Circular Undermining No -Wound/Ulcer Outcome Not Healed -Ulcer Cleansing Rinsed/ Irrigated with Saline -Foul Odor after Cleansing No -Bioengineered Tissue No -Bleeding Controlled with Pressure -Treatment Response Procedure Tolerated Well -Offloading No -Debridement - Subq, 1st 20sq cm Yes Pain Scale: 0-10 Numeric Is Patient Pain Free? Yes - Nurse 3 - General Ulcer D/C NN Start: 10/21/21 11:11 Freq: Status: Active Protocol: Activity Type Activity Date Activity User E-sign Co-sign Detail Recorded Client Recorded Date Recorded By Document 10/21/21 11:45 MW [id number] 10/21/21 11:46 MW 10/21/21 11:45 Wound Care Nurse 3 #14 left buttock -Ulcer Cleansing Rinsed/ Irrigated with Saline -Foul Odor after Cleansing No -Negative Pressure Wound Therapy N/A -Primary Dressing Applied Promogran Inez Matter -Primary Dressing Covered/Secured with Dry Gauze, Secured with Tape -Promogran Inez Matter 1 13. Abdomen -Ulcer Cleansing Rinsed/ Irrigated with Saline -Foul Odor after Cleansing No -Negative Pressure Wound Therapy N/A -Primary Dressing Applied C Hydrogel ($) -Primary Dressing Covered/Secured with Dry Gauze, Secured with Tape Treatment Response Procedure Tolerated Well Pain Scale: 0-10 Numeric Is Patient Pain Free? Yes Teaching: Wound Center Dressing Your Wound -Person Taught Patient -Teaching Method Discussion, Demonstration -Response to teaching Verbalize understanding WC - Visit Discharge Discharge Condition Stable Ambulatory Status Ambulatory, Walker Transportation Private Auto Accompanied by self Medication Reconcilliation completed & No provided to patient/care provider Clinical Summary of Care Provided Yes Additional Wound Wound debrided: left buttock Laterality: Left Type of Debridement: Excisional debridement Anesthesia Used: 4% Lidocaine Solution Depth: Down to and including healthy tissue and in the subcutaneous layer Percentage of wound debrided: 100 Instrument Used: - (probe) Tissue Removed: Yellow slough, devitalized tissue Severity: Fat Layer Exposed Amount of bleeding with debridement: Mild Bleeding Controlled with: Compression and gauze Patient tolerated procedure: Patient tolerated procedure well Assessment/Plan Assessment/Plan (1) Decubitus ulcer of left buttock, stage 2: CODE(S): L89.322 - Pressure ulcer of left buttock, stage 2 (2) Postoperative wound dehiscence: CODE(S): T81.31XA - Disruption of external operation (surgical) wound, not elsewhere classified, initial encounter QUALIFIERS: Encounter type: subsequent encounter Qualified Code(s): T81.31XD - Disruption of external operation (surgical) wound, not elsewhere classified, subsequent encounter (3) Ulcer of abdomen wall with fat layer exposed: CODE(S): L98.492 - Non-pressure chronic ulcer of skin of other sites with fat layer exposed (4) Obesity: CODE(S): E66.9 - Obesity, unspecified QUALIFIERS: Obesity type: unspecified obesity type Obesity classification: adult class 3 (BMI >= 40) Serious obesity comorbidity presence: without serious comorbidity Body mass index: BMI 50.0-59.9 Qualified Code(s): E66.01 - Morbid (severe) obesity due to excess calories; Z68.43 - Body mass index [BMI] 50.0-59.9, adult PLAN: Plan Melanie's ulcers of her abdomen and left buttock were evaluated and debrided today at the wound healing center. She has had labs approx. 2 months ago to evaluate her nutrition and for diabetes which nutrition is adequate and A1C was less than 6.0%. Her left buttock ulcer will be treated with Inez packed into the ulcer cavity and covered with gauze and tape. She has been applying hydrogel and covering with adaptic and gauze or silicone foam bordered dressing. Will have her continue to do dressings with hydrogel and add Inez and covered with silicone bordered foam dressing if the bandage gets wet or soiled. We discussed offloading of the site which she has been doing and we also encouraged increased protein intake, weight loss and proper cleansing of the ulcer to facilitate healing. She was advised to call if there are any increased odor, pain, drainage or erythema. She will return in 1 week for wound care.
[2021-11-04 11:17] VITALS: BP 123/76; PULSE 109; TEMP 36.6; BMI 112.3
--- NOTE | 2021-11-04 12:52 | PN.PCM_ITS ---
History of Present Illness Date of Service: 11/04/21 Chief Complaint: non-healing ulcer of abdominal incision site History of Wound: This is a 46-year-old morbidly obese female who presents today for treatment of a nonhealing ulcer of her abdomen at the site of surgical incision from total colectomy in December 2020. The incision was left to heal through secondary intention. She had a wound vac for several weeks after her surgery but when she was finally discharged from the hospital into a skilled facility in the end of January the wound vac was discontinued as the wound had healed enough to be able to be packed with silver alginate dressing. She has had healing of the incisional wound completely several different times from February and March but since April the area at the superior part of the incision has reopened and remains an ulcer. She has used Aquacel Extra dressings with changes daily covered with gauze or silicone bordered dressing for the last 12 weeks with minimal improvement. The area drains moderate to heavy at times. She is on chronic anticoagulation with warfarin and is obese. She has no odor, erythema or other signs of infection. Nadja Navarro returns today for follow up of nonhealing ulcer of her abdominal incision. It is healed. The ulcer on her left buttock is still not healed but she has not been able to do dressings as prescribed. It is near the site of a previous fistula. She has been using hydrogel daily and covering with gauze or silicone foam bordered dressing to her abdominal wound. She denies fever, chills, erythema, odor. Objective Data Objective Data Vital Signs: Vital Signs Temp Pulse Resp BP 97.9 F 109 H 18 123/76 H 11/04/21 11:17 11/04/21 11:17 10/21/21 11:11 11/04/21 11:17 Weight: 335 kg Body Mass Index (BMI) 112.3 Physical Exam Const alert, oriented x3 and no apparent distress General Appearance: cooperative and comfortable HEENT normocephalic and head/scalp atraumatic Resp normal respiratory effort Effort and Inspection: able to speak in complete sentences Cardio regular rate and regular rhythm Skin Wounds: wounds noted Wound Narrative: as in clinical panel Psych mental status grossly normal, thought process normal, cooperative and affect normal Debridement Note Debridement Note Post-Debridement Measurements and Additional Note: Post-Debridement Measurements/Treatment WC - Nurse 1 - General Ulcer Assessment Start: 10/21/21 11:11 Freq: Status: Active Protocol: WC.LOWEXT Activity Type Activity Date Activity User E-sign Co-sign Detail Recorded Client Recorded Date Recorded By Document 10/21/21 11:11 RB [id number] 10/21/21 11:16 RB Document 11/04/21 11:17 AK [id number] 11/04/21 11:18 AK 10/21/21 11/04/21 11:11 11:17 WC - Today's Visit Information Type of service Follow-up Visit Follow-up Visit (Physician/SPECIAL PROCEDURES TECH (Physician/SPECIAL PROCEDURES TECH ) ) Arrival Mode Ambulatory, Ambulatory, Walker Walker Transfer Assistance None Patient Identification Verified (Name & Yes Yes ) Patient Requires Transmission-Based No No Precautions Height and Weight Body Mass Index (BMI) 112.3 112.3 BMI Classification Obese Obese Vital Signs Temperature (97.8 F-99.1 F) 97 F L 97.9 F Temperature Source Temporal Temporal Pulse Rate (60-100) 107 H 109 H Pulse Location Monitor Monitor Respiratory Rate (12-18) 18 Respiratory rate source Observation Blood Pressure (90/60-120/80) 150/66 H 123/76 H Blood Pressure Mean (mm Hg) 94 91 Source Monitor Position Semi-Fowlers Blood Pressure Location Left Arm History Since Last Visit- (Skip if this is Patient's initial visit) Have you changed medications since your No No last visit? Any new allergies or adverse reactions No No Had a fall/change in ADL's that may No No increase risk of falls Signs or symptoms of abuse and/or No No neglect since last visit Have you been in the hospital since your No No last visit? Has dressing in place as prescribed Yes Yes Has compression in place as prescribed No N/A Has offloadiing in place as prescribed No N/A Experienced any changes in pain level or No No management Left Footwear Regular Shoe Regular Shoe Right Footwear Regular Shoe Regular Shoe Pain Scale: 0-10 Numeric Is Patient Pain Free? No Yes abd -Description Aching -Intensity 5 -Duration (hours) Chronic -Pain Behavior Rubbing Site -Pain Aggravating Factors Exercise/ Activity -Alleviating Factors/Interventions Medication -Effectiveness of Alleviating Factor/ Moderately Intervention effective WC - Nurse 1 - General Ulcer Measurement Start: 10/21/21 11:11 Freq: Status: Active Protocol: Activity Type Activity Date Activity User E-sign Co-sign Detail Recorded Client Recorded Date Recorded By Document 10/21/21 11:11 RB [id number] 10/21/21 11:16 RB Document 11/04/21 11:17 AK [id number] 11/04/21 11:18 AK 10/21/21 11/04/21 11:11 11:17 Wound Center Nurse 1 13. Abdomen -Combined with other wound No No -Current Size (cm) - Length 0.7 0.1 -Current Size (cm) - Width 0.4 0.1 -Current Size (cm) - Depth 0.1 0.1 -Total Square Cm 0.28 0.01 -Photo Taken Yes -Tunneling No No -Undermining/Tunneling No No -Circular Undermining No No -Change in Wound Grade/Stage No -Exudate Amt Medium None Present -Exudate Type Serosanguineous -Wound Margin Distinct, Outline Attached -Granulation Amt Medium (34-66%) None Present (0 %) -Granulation Quality [place] N/A -Slough/Fibrin Yes No -Necrosis Amt Medium (34-66%) None Present (0 %) -Necrotic Tissue Type Adherent Slough -Structure Exposed N/A N/A -Texture (Meg-wound Skin Appearance) Assessed, Assessed, Scarring Scarring -Moisture (Meg-wound Skin Appearance) Assessed No Abnormality, Assessed -Color (Meg-wound Skin Appearance) Assessed No Abnormality, Assessed -Temperature (Meg-wound Skin No Abnormality No Abnormality Appearance) (Pt Warm) (Pt Warm) -Tenderness on Palpation (Meg-wound No No Skin Appearance) -Ulcer Cleansing Wound Cleanser Rinsed/ Irrigated with Saline -Foul Odor after Cleansing No No -Anesthetic Used 5% Lidocaine 5% Lidocaine Gel Gel WC - Nurse 2 - General Ulcer CM Notes Start: 10/21/21 11:11 Freq: Status: Active Protocol: Activity Type Activity Date Activity User E-sign Co-sign Detail Recorded Client Recorded Date Recorded By Document 10/21/21 11:24 MW [id number] 10/21/21 11:45 MW Document 11/04/21 11:34 MW [id number] 11/04/21 11:45 MW Edit Result 11/04/21 11:34 MW (1) [id number] 11/04/21 11:57 MW (1) #14 left buttock - Procedure Performed No => Yes - Type of Procedure => Debridement - Clinical Debridement => Epidermis / Dermis - Tissue Removed => Epidermis - Area of Debridement (cm) - Length => 0.1 - Area of Debridement (cm) - Width => 0.1 - Total Square (Area) (cm) => 0.01 - Bioengineered Tissue => No - Bleeding Controlled with => Pressure - Treatment Response => Procedure => Tolerated Well - Offloading => No - Debridement - Open, 1st 20sq cm => Yes 10/21/21 11/04/21 11:24 11:34 Wound Center Nurse 2 13. Abdomen -Time 11:25 11:36 -Correct Patient Yes Yes -Correct Side, Site, Position Yes Yes -Correct Procedure Yes Yes -Procedure Performed Yes No -Type of Procedure Debridement -Clinical Debridement Subcutaneous -Tissue Removed Subcutaneous -Post Debridement (cm) - Length 0.3 0 -Post Debridement (cm) - Width 0.2 0 -Post Debridement (cm) - Depth 0.1 0 -Total Square (Post) (cm) 0.06 0 -Area of Debridement (cm) - Length 0.3 -Area of Debridement (cm) - Width 0.2 -Total Square (Area) (cm) 0.06 -Tunneling No -Undermining/Tunneling No -Circular Undermining No -Wound/Ulcer Outcome Not Healed Healed- Epithelialized -Ulcer Cleansing Rinsed/ Irrigated with Saline -Foul Odor after Cleansing No -Bioengineered Tissue No -Bleeding Controlled with Pressure -Treatment Response Procedure Tolerated Well -Offloading No -Debridement - Subq, 1st 20sq cm Yes #14 left buttock -Time 11:24 11:36 -Correct Patient Yes Yes -Correct Side, Site, Position Yes Yes -Correct Procedure Yes Yes -Procedure Performed No Yes -Type of Procedure Debridement -Clinical Debridement Epidermis / Dermis -Tissue Removed Epidermis -Post Debridement (cm) - Length 0.2 0.1 -Post Debridement (cm) - Width 0.2 0.1 -Post Debridement (cm) - Depth 2.3 0.1 -Total Square (Post) (cm) 0.04 0.01 -Area of Debridement (cm) - Length 0.1 -Area of Debridement (cm) - Width 0.1 -Total Square (Area) (cm) 0.01 -Tunneling No -Undermining/Tunneling No -Circular Undermining No -Wound/Ulcer Outcome Not Healed Not Healed -Ulcer Cleansing Rinsed/ Irrigated with Saline -Bioengineered Tissue No -Bleeding Controlled with Pressure -Treatment Response Procedure Tolerated Well -Offloading No -Debridement - Open, 1st 20sq cm Yes Pain Scale: 0-10 Numeric Is Patient Pain Free? Yes Yes WC - Nurse 3 - General Ulcer D/C NN Start: 10/21/21 11:11 Freq: Status: Active Protocol: Activity Type Activity Date Activity User E-sign Co-sign Detail Recorded Client Recorded Date Recorded By Document 10/21/21 11:45 MW [id number] 10/21/21 11:46 MW Document 11/04/21 11:45 MW [id number] 11/04/21 11:45 MW 10/21/21 11/04/21 11:45 11:45 Wound Care Nurse 3 13. Abdomen -Ulcer Cleansing Rinsed/ Irrigated with Saline -Foul Odor after Cleansing No -Negative Pressure Wound Therapy N/A -Primary Dressing Applied C Hydrogel ($) -Primary Dressing Covered/Secured with Dry Gauze, Secured with Tape #14 left buttock -Ulcer Cleansing Rinsed/ Rinsed/ Irrigated with Irrigated with Saline Saline -Foul Odor after Cleansing No No -Negative Pressure Wound Therapy N/A N/A -Primary Dressing Applied Promogran Promogran Inez Matter Inez Matter -Primary Dressing Covered/Secured with Dry Gauze, Dry Gauze, Secured with Secured with Tape Tape -Promogran Inez Matter 1 1 Treatment Response Procedure Procedure Tolerated Well Tolerated Well Pain Scale: 0-10 Numeric Is Patient Pain Free? Yes Yes Teaching: Wound Center Dressing Your Wound -Person Taught Patient Patient -Teaching Method Discussion, Discussion Demonstration -Response to teaching Verbalize Verbalize understanding understanding WC - Visit Discharge Discharge Condition Stable Stable Ambulatory Status Ambulatory, Ambulatory, Walker Walker Transportation Private Auto Private Auto Accompanied by self SELF Medication Reconcilliation completed & No No provided to patient/care provider Clinical Summary of Care Provided Yes Yes Additional Wound Wound debrided: left buttock Laterality: Left Type of Debridement: Excisional debridement Anesthesia Used: 4% Lidocaine Solution Depth: Down to and including healthy tissue and in the subcutaneous layer Percentage of wound debrided: 100 Instrument Used: - (probe) Tissue Removed: Yellow slough, devitalized tissue Severity: Fat Layer Exposed Amount of bleeding with debridement: Mild Bleeding Controlled with: Compression and gauze Patient tolerated procedure: Patient tolerated procedure well Assessment/Plan Assessment/Plan (1) Decubitus ulcer of left buttock, stage 2: CODE(S): L89.322 - Pressure ulcer of left buttock, stage 2 (2) Postoperative wound dehiscence: CODE(S): T81.31XA - Disruption of external operation (surgical) wound, not elsewhere classified, initial encounter QUALIFIERS: Encounter type: subsequent encounter Qualified Code(s): T81.31XD - Disruption of external operation (surgical) wound, not elsewhere classified, subsequent encounter (3) Ulcer of abdomen wall with fat layer exposed: CODE(S): L98.492 - Non-pressure chronic ulcer of skin of other sites with fat layer exposed (4) Obesity: CODE(S): E66.9 - Obesity, unspecified QUALIFIERS: Obesity type: unspecified obesity type Obesity classification: adult class 3 (BMI >= 40) Serious obesity comorbidity presence: without serious comorbidity Body mass index: BMI 50.0-59.9 Qualified Code(s): E66.01 - Morbid (severe) obesity due to excess calories; Z68.43 - Body mass index [BMI] 50.0-59.9, adult PLAN: Plan Melanie's ulcer of her abdomen is healed. Her ulcer of left buttock was evaluated and debrided today at the wound healing center. She has had labs approx. 2 months ago to evaluate her nutrition and for diabetes which nutrition is adequate and A1C was less than 6.0%. Her left buttock ulcer will be treated with Inez packed into the ulcer cavity and covered with gauze and tape. We discussed offloading of the site which she has been doing and we also encour aged increased protein intake, weight loss and proper cleansing of the ulcer to facilitate healing. She was advised to call if there are any increased odor, pain, drainage or erythema. She will return in 1 week for wound care.
[2021-11-18 11:13] VITALS: BP 143/70; PULSE 91; RESP 18; TEMP 36.6; BMI 112.3
--- NOTE | 2021-11-18 14:16 | PCM.WC.PN ---
History of Present Illness Date of Service: 11/18/21 Chief Complaint: non-healing ulcer of left buttock History of Wound: This is a 46-year-old morbidly obese female who presents today for treatment of a nonhealing ulcer of her left buttock at the site of a previous fistula. The area started draining in September and continues to drain serosanguinous fluid light to moderate drainage intermittently. She has been tolerating treatment with Inez packed into the fistula tract. She has been on and off antibiotic treatment for it. She has an ileostomy so there is no stool contamination to the area. She has not been able to change dressings regularly. She is on chronic anticoagulation with warfarin and is obese. She has no odor, erythema or other signs of infection. Progress of Wound: She has a new wound to her right senior that has been present for 2 weeks. This occurred from striking her senior against her walker. She had been applying bandaids and neosporin and it has not healed. Drainage varies from light to moderate. Objective Data Objective Data Vital Signs: Vital Signs Temp Pulse Resp BP 98 F 91 18 143/70 H 11/18/21 11:13 11/18/21 11:13 11/18/21 11:13 11/18/21 11:13 Weight: 335 kg Body Mass Index (BMI) 112.3 Physical Exam Const alert, oriented x3 and no apparent distress General Appearance: cooperative and comfortable HEENT normocephalic and head/scalp atraumatic Resp normal respiratory effort Effort and Inspection: able to speak in complete sentences Cardio regular rate and regular rhythm Skin Wounds: wounds noted Wound Narrative: as in clinical panel Psych mental status grossly normal, thought process normal, cooperative and affect normal Debridement Note Debridement Note Wound debrided: right senior Laterality: Right Anesthesia Used: 4% Lidocaine Solution Depth: Down to and including healthy tissue and in the subcutaneous layer Percentage of wound debrided: 100 Instrument Used: 3mm curette Tissue Removed: Yellow slough, devitalized tissue Severity: Fat Layer Exposed Amount of bleeding with debridement: Mild Bleeding Controlled with: Compression and gauze Patient tolerated procedure: Patient tolerated procedure well Post-Debridement Measurements and Additional Note: Post-Debridement Measurements/Treatment CIARRA - Nurse 1 - General Ulcer Assessment Start: 10/21/21 11:11 Freq: Status: Active Protocol: NILTON Activity Type Activity Date Activity User E-sign Co-sign Detail Recorded Client Recorded Date Recorded By Document 10/21/21 11:11 RB [id number] 10/21/21 11:16 RB Document 11/04/21 11:17 AK [id number] 11/04/21 11:18 AK Document 11/18/21 11:13 RB [id number] 11/18/21 11:18 RB 10/21/21 11/04/21 11/18/21 11:11 11:17 11:13 WC - Today's Visit Information Type of service Follow-up Visit Follow-up Visit Follow-up Visit (Physician/DATA ANALYST REPORT WRITER (Physician/DATA ANALYST REPORT WRITER (Physician/DATA ANALYST REPORT WRITER ) ) ) Arrival Mode Ambulatory, Ambulatory, Ambulatory, Walker Walker Walker Transfer Assistance None None Patient Identification Verified (Name & Yes Yes Yes ) Patient Requires Transmission-Based No No No Precautions Height and Weight Body Mass Index (BMI) 112.3 112.3 112.3 BMI Classification Obese Obese Obese Vital Signs Temperature (97.8 F-99.1 F) 97 F L 97.9 F 98 F Temperature Source Temporal Temporal Temporal Pulse Rate (60-100) 107 H 109 H 91 Pulse Location Monitor Monitor Monitor Respiratory Rate (12-18) 18 18 Respiratory rate source Observation Observation Blood Pressure (90/60-120/80) 150/66 H 123/76 H 143/70 H Blood Pressure Mean (mm Hg) 94 91 94 Source Monitor Monitor Position Semi-Fowlers Sitting Blood Pressure Location Left Arm Left Arm History Since Last Visit- (Skip if this is Patient's initial visit) Have you changed medications since your No No No last visit? Any new allergies or adverse reactions No No No Had a fall/change in ADL's that may No No No increase risk of falls Signs or symptoms of abuse and/or No No No neglect since last visit Have you been in the hospital since your No No No last visit? Has dressing in place as prescribed Yes Yes Yes Has compression in place as prescribed No N/A No Has offloadiing in place as prescribed No N/A No Experienced any changes in pain level or No No No management Left Footwear Regular Shoe Regular Shoe Right Footwear Regular Shoe Regular Shoe Pain Scale: 0-10 Numeric Is Patient Pain Free? No Yes No hips and back -Description Aching Sharp -Intensity 5 5 -Duration (hours) Chronic Chronic -Pain Behavior Rubbing Site Irritability -Pain Aggravating Factors Exercise/ ADL's Activity -Alleviating Factors/Interventions Medication Medication -Effectiveness of Alleviating Factor/ Moderately Minimally Intervention effective effective WC - Nurse 1 - General Ulcer Measurement Start: 10/21/21 11:11 Freq: Status: Active Protocol: Activity Type Activity Date Activity User E-sign Co-sign Detail Recorded Client Recorded Date Recorded By Document 10/21/21 11:11 RB [id number] 10/21/21 11:16 RB Document 11/04/21 11:17 AK [id number] 11/04/21 11:18 AK Document 11/18/21 11:13 RB [id number] 11/18/21 11:18 RB 10/21/21 11/04/21 11/18/21 11:11 11:17 11:13 Wound Center Nurse 1 13. Abdomen -Combined with other wound No No -Current Size (cm) - Length 0.7 0.1 -Current Size (cm) - Width 0.4 0.1 -Current Size (cm) - Depth 0.1 0.1 -Total Square Cm 0.28 0.01 -Photo Taken Yes -Tunneling No No -Undermining/Tunneling No No -Circular Undermining No No -Change in Wound Grade/Stage No -Exudate Amt Medium None Present -Exudate Type Serosanguineous -Wound Margin Distinct, Outline Attached -Granulation Amt Medium (34-66%) None Present (0 %) -Granulation Quality [place] N/A -Slough/Fibrin Yes No -Necrosis Amt Medium (34-66%) None Present (0 %) -Necrotic Tissue Type Adherent Slough -Structure Exposed N/A N/A -Texture (Meg-wound Skin Appearance) Assessed, Assessed, Scarring Scarring -Moisture (Meg-wound Skin Appearance) Assessed No Abnormality, Assessed -Color (Meg-wound Skin Appearance) Assessed No Abnormality, Assessed -Temperature (Meg-wound Skin No Abnormality No Abnormality Appearance) (Pt Warm) (Pt Warm) -Tenderness on Palpation (Meg-wound No No Skin Appearance) -Ulcer Cleansing Wound Cleanser Rinsed/ Irrigated with Saline -Foul Odor after Cleansing No No -Anesthetic Used 5% Lidocaine 5% Lidocaine Gel Gel RLE medial -Combined with other wound No -Current Size (cm) - Length 0.1 -Current Size (cm) - Width 0.1 -Current Size (cm) - Depth 0.1 -Total Square Cm 0.01 -Photo Taken Yes -Tunneling No -Undermining/Tunneling No -Circular Undermining No -Exudate Amt Small -Exudate Type Serosanguineous -Wound Margin Distinct, Outline Attached -Granulation Amt Medium (34-66%) -Granulation Quality [place],Red -Slough/Fibrin Yes -Necrosis Amt Small (1-33%) -Necrotic Tissue Type Adherent Slough -Structure Exposed N/A -Texture (Meg-wound Skin Appearance) Assessed -Moisture (Meg-wound Skin Appearance) Assessed -Color (Meg-wound Skin Appearance) Hemosiderin Staining -Temperature (Meg-wound Skin No Abnormality Appearance) (Pt Warm) -Tenderness on Palpation (Meg-wound No Skin Appearance) -Ulcer Cleansing Wound Cleanser -Foul Odor after Cleansing No -Anesthetic Used 5% Lidocaine Gel Lower Limb Edema Present Yes Right Calf (cm) 58 Right Ankle (cm) 32.5 WC - Nurse 2 - General Ulcer CM Notes Start: 10/21/21 11:11 Freq: Status: Active Protocol: Activity Type Activity Date Activity User E-sign Co-sign Detail Recorded Client Recorded Date Recorded By Document 10/21/21 11:24 MW [id number] 10/21/21 11:45 MW Document 11/04/21 11:34 MW [id number] 11/04/21 11:45 MW Edit Result 11/04/21 11:34 MW (1) [id number] 11/04/21 11:57 MW Document 11/18/21 11:22 MW [id number] 11/18/21 11:43 MW (1) #14 left buttock - Procedure Performed No => Yes - Type of Procedure => Debridement - Clinical Debridement => Epidermis / Dermis - Tissue Removed => Epidermis - Area of Debridement (cm) - Length => 0.1 - Area of Debridement (cm) - Width => 0.1 - Total Square (Area) (cm) => 0.01 - Bioengineered Tissue => No - Bleeding Controlled with => Pressure - Treatment Response => Procedure => Tolerated Well - Offloading => No - Debridement - Open, 20sq cm => Yes 10/21/21 11/04/21 11/18/21 11:24 11:34 11:22 Wound Center Nurse 2 13. Abdomen -Time 11:25 11:36 -Correct Patient Yes Yes -Correct Side, Site, Position Yes Yes -Correct Procedure Yes Yes -Procedure Performed Yes No -Type of Procedure Debridement -Clinical Debridement Subcutaneous -Tissue Removed Subcutaneous -Post Debridement (cm) - Length 0.3 0 -Post Debridement (cm) - Width 0.2 0 -Post Debridement (cm) - Depth 0.1 0 -Total Square (Post) (cm) 0.06 0 -Area of Debridement (cm) - Length 0.3 -Area of Debridement (cm) - Width 0.2 -Total Square (Area) (cm) 0.06 -Tunneling No -Undermining/Tunneling No -Circular Undermining No -Wound/Ulcer Outcome Not Healed Healed- Epithelialized -Ulcer Cleansing Rinsed/ Irrigated with Saline -Foul Odor after Cleansing No -Bioengineered Tissue No -Bleeding Controlled with Pressure -Treatment Response Procedure Tolerated Well -Offloading No -Debridement - Subq, 20sq cm Yes RLE medial -Time 11:23 -Correct Patient Yes -Correct Side, Site, Position Yes -Correct Procedure Yes -Procedure Performed Yes -Type of Procedure Debridement -Clinical Debridement Subcutaneous -Tissue Removed Subcutaneous -Post Debridement (cm) - Length 0.6 -Post Debridement (cm) - Width 1.3 -Post Debridement (cm) - Depth 0.1 -Total Square (Post) (cm) 0.78 -Area of Debridement (cm) - Length 0.6 -Area of Debridement (cm) - Width 1.3 -Total Square (Area) (cm) 0.78 -Tunneling No -Undermining/Tunneling No -Circular Undermining No -Wound/Ulcer Outcome Not Healed -Ulcer Cleansing Rinsed/ Irrigated with Saline -Foul Odor after Cleansing No -Bioengineered Tissue No -Bleeding Controlled with Pressure -Treatment Response Procedure Tolerated Well -Offloading No -Debridement - Subq, 20sq cm Yes #14 left buttock -Time 11:24 11:36 11:24 -Correct Patient Yes Yes Yes -Correct Side, Site, Position Yes Yes Yes -Correct Procedure Yes Yes Yes -Procedure Performed No Yes No -Type of Procedure Debridement -Clinical Debridement Epidermis / Dermis -Tissue Removed Epidermis -Post Debridement (cm) - Length 0.2 0.1 0.1 -Post Debridement (cm) - Width 0.2 0.1 0.1 -Post Debridement (cm) - Depth 2.3 0.1 0.5 -Total Square (Post) (cm) 0.04 0.01 0.01 -Area of Debridement (cm) - Length 0.1 -Area of Debridement (cm) - Width 0.1 -Total Square (Area) (cm) 0.01 -Tunneling No -Undermining/Tunneling No -Circular Undermining No -Wound/Ulcer Outcome Not Healed Not Healed Not Healed -Ulcer Cleansing Rinsed/ Irrigated with Saline -Bioengineered Tissue No -Bleeding Controlled with Pressure -Treatment Response Procedure Tolerated Well -Offloading No -Debridement - Open, 1st 20sq cm Yes Pain Scale: 0-10 Numeric Is Patient Pain Free? Yes Yes Yes WC - Nurse 3 - General Ulcer D/C NN Start: 10/21/21 11:11 Freq: Status: Active Protocol: Activity Type Activity Date Activity User E-sign Co-sign Detail Recorded Client Recorded Date Recorded By Document 10/21/21 11:45 MW [id number] 10/21/21 11:46 MW Document 11/04/21 11:45 MW [id number] 11/04/21 11:45 MW Document 11/18/21 11:43 MW [id number] 11/18/21 11:44 MW 10/21/21 11/04/21 11/18/21 11:45 11:45 11:43 Wound Care Nurse 3 13. Abdomen -Ulcer Cleansing Rinsed/ Irrigated with Saline -Foul Odor after Cleansing No -Negative Pressure Wound Therapy N/A -Primary Dressing Applied C Hydrogel ($) -Primary Dressing Covered/Secured with Dry Gauze, Secured with Tape RLE medial -Ulcer Cleansing Rinsed/ Irrigated with Saline -Foul Odor after Cleansing No -Negative Pressure Wound Therapy N/A -Primary Dressing Applied Promogran Inez Matter -Primary Dressing Covered/Secured with Dry Gauze, Secured with Tape -Promogran Inez Matter 1 #14 left buttock -Ulcer Cleansing Rinsed/ Rinsed/ Rinsed/ Irrigated with Irrigated with Irrigated with Saline Saline Saline -Foul Odor after Cleansing No No No -Negative Pressure Wound Therapy N/A N/A N/A -Primary Dressing Applied Promogran Promogran Promogran Inez Matter Inez Matter Inez Matter -Primary Dressing Covered/Secured with Dry Gauze, Dry Gauze, Dry Gauze, Secured with Secured with Secured with Tape Tape Tape -Promogran Inez Matter 1 1 1 Treatment Response Procedure Procedure Procedure Tolerated Well Tolerated Well Tolerated Well Pain Scale: 0-10 Numeric Is Patient Pain Free? Yes Yes Yes Teaching: Wound Center Dressing Your Wound -Person Taught Patient Patient Patient -Teaching Method Discussion, Discussion Discussion, Demonstration Demonstration -Response to teaching Verbalize Verbalize Verbalize understanding understanding understanding WC - Visit Discharge Discharge Condition Stable Stable Stable Ambulatory Status Ambulatory, Ambulatory, Ambulatory, Walker Walker Walker Transportation Private Auto Private Auto Private Auto Accompanied by self SELF self Medication Reconcilliation completed & No No No provided to patient/care provider Clinical Summary of Care Provided Yes Yes Yes Additional Wound Wound debrided: left buttock Laterality: Left Type of Debridement: Excisional debridement Anesthesia Used: 4% Lidocaine Solution Depth: Down to and including healthy tissue and in the subcutaneous layer Percentage of wound debrided: 100 Instrument Used: - (probe) Tissue Removed: Yellow slough, devitalized tissue Severity: Fat Layer Exposed Amount of bleeding with debridement: Mild Bleeding Controlled with: Compression and gauze Patient tolerated procedure: Patient tolerated procedure well Assessment/Plan Assessment/Plan (1) Decubitus ulcer of left buttock, stage 2: CODE(S): L89.322 - Pressure ulcer of left buttock, stage 2 (2) Postoperative wound dehiscence: CODE(S): T81.31XA - Disruption of external operation (surgical) wound, not elsewhere classified, initial encounter QUALIFIERS: Encounter type: subsequent encounter Qualified Code(s): T81.31XD - Disruption of external operation (surgical) wound, not elsewhere classified, subsequent encounter (3) Ulcer of abdomen wall with fat layer exposed: CODE(S): L98.492 - Non-pressure chronic ulcer of skin of other sites with fat layer exposed (4) Obesity: CODE(S): E66.9 - Obesity, unspecified QUALIFIERS: Body mass index: BMI 50.0-59.9 Obesity classification: adult class 3 (BMI >= 40) Obesity type: unspecified obesity type Serious obesity comorbidity presence: without serious comorbidity Qualified Code(s): E66.01 - Morbid (severe) obesity due to excess calories; Z68.43 - Body mass index [BMI] 50.0-59.9, adult PLAN: Plan Melanie's ulcer of her abdomen is healed. Her right senior was evaluated and debrided today. Her ulcer of left buttock was evaluated and debrided today at the wound healing center. She has had labs approx. 2 months ago to evaluate her nutrition and for diabetes which nutrition is adequate and A1C was less than 6.0%. Her left buttock ulcer will be treated with Inez packed into the ulcer cavity and covered with gauze and tape. Her right senior will be treated with Inez and gauze and tape. We discussed offloading of the site which she has been doing and we also encouraged increased protein intake, weight loss and proper cleansing of the ulcer to facilitate healing. She was advised to call if there are any increased odor, pain, drainage or erythema. She will return in 2 weeks for wound care.
== END 2021-11-20 23:59 | disposition home or self-care (01) ==
LOC: WC 11:00
PROVIDERS: PCP Family Medicine; Visit Provider Family Medicine
DX: T81.31XA Disruption of external operation (surgical) wound, not elsewhere classified, initial encounter (principal); L89.322 Pressure ulcer of left buttock, stage 2; L98.492 Non-pressure chronic ulcer of skin of other sites with fat layer exposed; E66.01 Morbid (severe) obesity due to excess calories; Z68.45 Body mass index [BMI] 70 or greater, adult; Z79.82 Long term (current) use of aspirin; Z79.01 Long term (current) use of anticoagulants; Z79.899 Other long term (current) drug therapy; Z90.49 Acquired absence of other specified parts of digestive tract
CPT/HCPCS: 11042; 97597

== ENCOUNTER 2021-12-05 09:15 | Day surgery (SDC) | payer MEDICARE, MEDICAID, SELFPAY ==
[2021-12-05] VITALS (7 sets, daily range): BP systolic 104–141; BP diastolic 58–80; PULSE 96–102; RESP 18; TEMP 36.3–36.6; O2SAT 97–98; BMI 53.9
[2021-12-05] MEDS: Lactated Ringers 1,000 ML 15 ML IV (09:50)
[2021-12-05] MEDS: 0.9% Normal Saline (Pres. free 10 ML Vial (10:42)
[2021-12-05] MEDS: MethylPREDNISolone Acetate 80 MG/ML Vial (10:42)
[2021-12-05] MEDS: Bupivacaine 0.25% 30 ML Vial (10:42)
[2021-12-05] MEDS: Lidocaine 1% (5 ml sdv) 5 ML Vial (10:42)
--- NOTE | 2021-12-05 11:00 | RAD_ITS ---
CAUDAL EPIDURAL STEROID INJECTION. EXAMINATION/TECHNIQUE: X-RAY - IR Fluoro Guide Injection Spine COMPARISON: 07/28/2021. FLUOROSCOPY DOSE: 16.67 mGy FLUOROSCOPY TIME: 0:12 minutes FINDINGS: 4 spot fluoroscopic images were obtained intraoperatively. Images demonstrate the needle placement for caudal epidural block. No radiologist was present for the procedure, please refer to operative report for details. RAD/Fluor Guidance for Spine Inj IMPRESSION: Please refer to operative report for details. Electronically Signed: Brendan Lantigua MD at 7:56 EDT ,
--- NOTE | 2021-12-05 12:30 | OP.PCM_ITS ---
Report of Operation Date of Procedure: 12/05/21 Pre-Operative Diagnosis: Lumbosacral radiculopathy, lumbosacral degenerative di sc disease, lumbosacral spinal stenosis Post-Operative Diagnosis: Lumbosacral radiculopathy, lumbosacral degenerative disc disease, lumbosacral spinal stenosis Surgery/Procedure Performed:: Caudal epidural steroid injection under fluoroscopic guidance Type of Anesthesia: MAC Estimated Blood Loss (mL): Minimal Description of Procedure: DESCRIPTION OF PROCEDURE: History and physical of today was reviewed. Risks and benefits of the procedure were explained. The patient understood and agreed to proceed. Informed consent was obtained. IV inserted per routine protocol. The patient was taken to the operating room and placed in the prone position with a pillow positioned underneath the abdomen. The lower back and tailbone area was prepped and draped in a sterile fashion using iodine x3. Under fluoroscopy guidance on a lateral view, the caudal space was identified. The skin and subcutaneous tissue was anesthetized with approximately 3 mL of 1% lidocaine using a 25-gauge regular needle. Under direct visualization with fluoroscopy, using a 22-gauge 3-1/2-inch spinal needle, the needle was advanced via the skin through the sacral hiatus. The tip of the needle was passed through the sacrococcygeal ligament and advanced to approximately S4 area. After negative aspiration of blood or CSF, a total of 3 mL of contrast was injected to confirm correct placement of the needle as well as cephalad spread. The spread was followed to approximately L5 area. After confirmation on AP as well as lateral view and repeated negative aspiration, a total of 15 mL of preservative-free 0.125% Marcaine with 80 mg of Depo-Medrol was injected easily. The needle was then removed intact. The patient experienced no sign or symptoms of intrathecal or intravascular injection. The patient experienced no paresthesia. The procedure was completed without any apparent difficulty or any complications. The patient appeared to tolerate it well. ASSESSMENT AND PLAN: This is a 46-year-old female with lumbosacral radiculopathy, lumbosacral degenerative disc disease, lumbosacral spinal stenosis status post caudal epidural steroid injection, patient will continue her current medications, patient will follow in approximately 2 weeks for reevaluation. Complications None
[2021-12-06 07:20] LABS: INR Fingerstick 1.1; Prothrombin Time Fingerstick 13.7 SEC (11.7-14.9)
== END 2021-12-05 12:00 | disposition home or self-care (01) ==
LOC: SDC 09:17 → AC 09:18
PROVIDERS: PCP Family Medicine; Referring Provider Anesthesiology Pain Medicine; Visit Provider Anesthesiology Pain Medicine
PROC: 3E0S3BZ Introduction of Anesthetic Agent into Epidural Space, Percutaneous Approach (ICD-10-PCS; CPT 62282; principal; 2021-12-05 10:55)
DX: M51.17 Intervertebral disc disorders with radiculopathy, lumbosacral region (principal); M48.07 Spinal stenosis, lumbosacral region
CPT/HCPCS: 62323; 36416; 64483; 77003; 85610; J7120; J3490

== ENCOUNTER 2021-12-16 11:00 | Outpatient (RCR) | payer MEDICARE, MEDICAID, SELFPAY ==
[2021-11-21 00:27] VITALS: BP 143/70; PULSE 91; RESP 18; TEMP 36.6; BMI 112.3
[2021-12-09 10:55] VITALS: BP 145/85; PULSE 111; RESP 18; TEMP 35.7; BMI 112.3
--- NOTE | 2021-12-09 14:51 | PN.PCM_ITS ---
History of Present Illness Date of Service: 12/09/21 Chief Complaint: non-healing ulcer of left buttock History of Wound: This is a 46-year-old morbidly obese female who presents today for treatment of a nonhealing ulcer of her left buttock at the site of a previous fistula. The area started draining in September and continues to drain serosanguinous fluid light to moderate drainage intermittently. She has been tolerating treatment with Inez packed into the fistula tract. She has been on and off antibiotic treatment for it. She has an ileostomy so there is no stool contamination to the area. She has not been able to change dressings regularly. She is on chronic anticoagulation with warfarin and is obese. She has no odor, erythema or other signs of infection. Subjective Subjective Melanie returns today for follow up of nonhealing ulcer of her left buttock. The ulcer on her left buttock is still not healed but she has not been able to do dressings as prescribed. It is near the site of a previous fistula.Her senior wound is healed. She denies fever, chills, erythema, odor. Objective Data Objective Data Vital Signs: Vital Signs Temp Pulse Resp BP 96.2 F L 111 H 18 145/85 H 12/09/21 10:55 12/09/21 10:55 12/09/21 10:55 12/09/21 10:55 Weight: 335 kg Body Mass Index (BMI) 112.3 Physical Exam Const alert, oriented x3 and no apparent distress General Appearance: cooperative and comfortable HEENT normocephalic and head/scalp atraumatic Resp normal respiratory effort Effort and Inspection: able to speak in complete sentences Cardio regular rate and regular rhythm Skin Wounds: wounds noted Wound Narrative: as in clinical panel Psych mental status grossly normal, thought process normal, cooperative and affect normal Debridement Note Debridement Note Post-Debridement Measurements and Additional Note: Post-Debridement Measurements/Treatment WC - Nurse 1 - General Ulcer Assessment Start: 12/09/21 10:54 Freq: Status: Active Protocol: NILTON Activity Type Activity Date Activity User E-sign Co-sign Detail Recorded Client Recorded Date Recorded By Document 12/09/21 10:55 PIPER [id number] 12/09/21 11:07 PIPER 12/09/21 10:55 - Today's Visit Information Type of service Follow-up Visit (Physician/CLIMATOLOGY PROFESSOR ) Arrival Mode Ambulatory, Walker Patient Identification Verified (Name & Yes ) Patient Requires Transmission-Based No Precautions Height and Weight Body Mass Index (BMI) 112.3 BMI Classification Obese Vital Signs Temperature (97.8 F-99.1 F) 96.2 F L Temperature Source Temporal Pulse Rate (60-100) 111 H Pulse Location Monitor Respiratory Rate (12-18) 18 Respiratory rate source Observation Blood Pressure (90/60-120/80) 145/85 H Blood Pressure Mean (mm Hg) 105 Source Monitor Position Sitting Blood Pressure Location Left Arm History Since Last Visit- (Skip if this is Patient's initial visit) Have you changed medications since your No last visit? Any new allergies or adverse reactions No Had a fall/change in ADL's that may No increase risk of falls Signs or symptoms of abuse and/or No neglect since last visit Have you been in the hospital since your No last visit? Has dressing in place as prescribed Yes Has compression in place as prescribed N/A Has offloadiing in place as prescribed N/A Experienced any changes in pain level or No management Left Footwear Regular Shoe Right Footwear Regular Shoe Pain Scale: 0-10 Numeric Is Patient Pain Free? Yes WC - Nurse 1 - General Ulcer Measurement Start: 12/09/21 10:54 Freq: Status: Active Protocol: Activity Type Activity Date Activity User E-sign Co-sign Detail Recorded Client Recorded Date Recorded By Document 12/09/21 10:55 PA [id number] 12/09/21 11:07 AK 12/09/21 10:55 Wound Center Nurse 1 #15 RLE medial -Combined with other wound No -Current Size (cm) - Length 0.1 -Current Size (cm) - Width 0.1 -Current Size (cm) - Depth 0.1 -Total Square Cm 0.01 -Photo Taken Yes -Epithelialization Large 67-100% -Tunneling No -Undermining/Tunneling No -Circular Undermining No -Exudate Amt None Present WC - Nurse 2 - General Ulcer CM Notes Start: 12/09/21 10:54 Freq: Status: Active Protocol: Activity Type Activity Date Activity User E-sign Co-sign Detail Recorded Client Recorded Date Recorded By Document 12/09/21 11:27 [id number] 12/09/21 11:51 MW 12/09/21 11:27 Wound Center Nurse 2 -Time 11:44 -Correct Patient Yes -Correct Side, Site, Position Yes -Correct Procedure Yes -Procedure Performed No -Post Debridement (cm) - Length 0 -Post Debridement (cm) - Width 0 -Post Debridement (cm) - Depth 0 -Total Square (Post) (cm) 0 -Wound/Ulcer Outcome Healed- Epithelialized #14 left buttock -Time 11:51 -Correct Patient Yes -Correct Side, Site, Position Yes -Correct Procedure Yes -Procedure Performed Yes -Type of Procedure Debridement -Clinical Debridement Subcutaneous -Tissue Removed Subcutaneous -Post Debridement (cm) - Length 0.1 -Post Debridement (cm) - Width 0.1 -Post Debridement (cm) - Depth 0.7 -Total Square (Post) (cm) 0.01 -Area of Debridement (cm) - Length 0.1 -Area of Debridement (cm) - Width 0.1 -Total Square (Area) (cm) 0.01 -Tunneling No -Undermining/Tunneling No -Circular Undermining No -Wound/Ulcer Outcome Not Healed -Ulcer Cleansing Rinsed/ Irrigated with Saline -Foul Odor after Cleansing No -Bioengineered Tissue No -Bleeding Controlled with Pressure -Treatment Response Procedure Tolerated Well -Offloading No -Debridement - Subq, 1st 20sq cm No Pain Scale: 0-10 Numeric Is Patient Pain Free? Yes - Nurse 3 - General Ulcer D/C NN Start: 12/09/21 10:54 Freq: Status: Active Protocol: Activity Type Activity Date Activity User E-sign Co-sign Detail Recorded Client Recorded Date Recorded By Document 12/09/21 11:51 MW [id number] 12/09/21 11:52 MW 12/09/21 11:51 Wound Care Nurse 3 #14 left buttock -Ulcer Cleansing Rinsed/ Irrigated with Saline -Foul Odor after Cleansing No -Negative Pressure Wound Therapy N/A -Primary Dressing Applied Promogran Inez Matter -Primary Dressing Covered/Secured with Dry Gauze, Secured with Tape -Promogran Inez Matter 1 Treatment Response Procedure Tolerated Well Pain Scale: 0-10 Numeric Is Patient Pain Free? Yes Teaching: Wound Center Dressing Your Wound -Person Taught Patient -Teaching Method Discussion, Demonstration -Response to teaching Verbalize understanding WC - Visit Discharge Discharge Condition Stable Ambulatory Status Ambulatory, Walker Transportation Private Auto Accompanied by SELF Medication Reconcilliation completed & No provided to patient/care provider Clinical Summary of Care Provided Yes Additional Wound Wound debrided: left buttock Laterality: Left Type of Debridement: Excisional debridement Anesthesia Used: 4% Lidocaine Solution Depth: Down to and including healthy tissue and in the subcutaneous layer Percentage of wound debrided: 100 Instrument Used: - (probe) Tissue Removed: Yellow slough, devitalized tissue Severity: Fat Layer Exposed Amount of bleeding with debridement: Mild Bleeding Controlled with: Compression and gauze Patient tolerated procedure: Patient tolerated procedure well Assessment/Plan Assessment/Plan (1) Decubitus ulcer of left buttock, stage 2: CODE(S): L89.322 - Pressure ulcer of left buttock, stage 2 (2) Postoperative wound dehiscence: CODE(S): T81.31XA - Disruption of external operation (surgical) wound, not elsewhere classified, initial encounter QUALIFIERS: Encounter type: subsequent encounter Qualified Code(s): T81.31XD - Disruption of external operation (surgical) wound, not elsewhere classified, subsequent encounter (3) Ulcer of abdomen wall with fat layer exposed: CODE(S): L98.492 - Non-pressure chronic ulcer of skin of other sites with fat layer exposed (4) Obesity: CODE(S): E66.9 - Obesity, unspecified QUALIFIERS: Obesity type: unspecified obesity type Obesity classification: adult class 3 (BMI >= 40) Serious obesity comorbidity presence: without serious comorbidity Body mass index: BMI 50.0-59.9 Qualified Code(s): E66.01 - Morbid (severe) obesity due to excess calories; Z68.43 - Body mass index [BMI] 50.0-59.9, adult PLAN: Plan Melanie's ulcer of her abdomen is healed. Her right senior was evaluated and is healed today. Her ulcer of left buttock was evaluated and debrided today at the wound healing center. She has had labs approx. 2 months ago to evaluate her nutrition and for diabetes which nutrition is adequate and A1C was less than 6.0%. Her left buttock ulcer will be treated with Inez packed into the ulcer cavity and covered with gauze and tape. We discussed offloading of the site which she has been doing and we also encouraged increased protein intake, weight loss and proper cleansing of the ulcer to facilitate healing. She was advised to call if there are any increased odor, pain, drainage or erythema. She will return in 1 week for wound care.
[2021-12-16 11:37] VITALS: BP 149/63; PULSE 77; TEMP 36.2; BMI 112.3
--- NOTE | 2021-12-16 15:09 | PCM.WC.PN ---
History of Present Illness Date of Service: 12/16/21 Chief Complaint: non-healing ulcer of left buttock History of Wound: This is a 46-year-old morbidly obese female who presents today for treatment of a nonhealing ulcer of her left buttock at the site of a previous fistula. The area started draining in September and continues to drain serosanguinous fluid light to moderate drainage intermittently. She has been tolerating treatment with Inez packed into the fistula tract. She has been on and off antibiotic treatment for it. She has an ileostomy so there is no stool contamination to the area. She has not been able to change dressings regularly. She is on chronic anticoagulation with warfarin and is obese. She has no odor, erythema or other signs of infection. Subjective Subjective Melanie returns today for follow up of nonhealing ulcer of her left buttock. The ulcer on her left buttock is still not healed but she has not been able to do dressings as prescribed. It is near the site of a previous fistula. She denies fever, chills, erythema, odor. Objective Data Objective Data Vital Signs: Vital Signs Temp Pulse Resp BP 97.2 F L 77 18 149/63 H 12/16/21 11:37 12/16/21 11:37 12/09/21 10:55 12/16/21 11:37 Weight: 335 kg Body Mass Index (BMI) 112.3 Physical Exam Const alert, oriented x3 and no apparent distress General Appearance: cooperative and comfortable HEENT normocephalic and head/scalp atraumatic Resp normal respiratory effort Effort and Inspection: able to speak in complete sentences Cardio regular rate and regular rhythm Skin Wounds: wounds noted Wound Narrative: as in clinical panel Psych mental status grossly normal, thought process normal, cooperative and affect normal Debridement Note Debridement Note Post-Debridement Measurements and Additional Note: Post-Debridement Measurements/Treatment WC - Nurse 1 - General Ulcer Assessment Start: 12/09/21 10:54 Freq: Status: Active Protocol: NILTON Activity Type Activity Date Activity User E-sign Co-sign Detail Recorded Client Recorded Date Recorded By Document 12/09/21 10:55 PIPER [id number] 12/09/21 11:07 AK Document 12/16/21 11:37 PIPER [id number] 12/16/21 11:38 PIPER 12/09/21 12/16/21 10:55 11:37 - Today's Visit Information Type of service Follow-up Visit Follow-up Visit (Physician/ELECTRICAL PLUMBING SUPERVISOR (Physician/ELECTRICAL PLUMBING SUPERVISOR ) ) Arrival Mode Ambulatory, Ambulatory, Walker Walker Patient Identification Verified (Name & Yes Yes ) Patient Requires Transmission-Based No No Precautions Height and Weight Body Mass Index (BMI) 112.3 112.3 BMI Classification Obese Obese Vital Signs Temperature (97.8 F-99.1 F) 96.2 F L 97.2 F L Temperature Source Temporal Temporal Pulse Rate (60-100) 111 H 77 Pulse Location Monitor Monitor Respiratory Rate (12-18) 18 Respiratory rate source Observation Blood Pressure (90/60-120/80) 145/85 H 149/63 H Blood Pressure Mean (mm Hg) 105 91 Source Monitor Monitor Position Sitting Blood Pressure Location Left Arm History Since Last Visit- (Skip if this is Patient's initial visit) Have you changed medications since your No No last visit? Any new allergies or adverse reactions No No Had a fall/change in ADL's that may No No increase risk of falls Signs or symptoms of abuse and/or No No neglect since last visit Have you been in the hospital since your No No last visit? Has dressing in place as prescribed Yes Yes Has compression in place as prescribed N/A N/A Has offloadiing in place as prescribed N/A N/A Experienced any changes in pain level or No No management Left Footwear Regular Shoe Regular Shoe Right Footwear Regular Shoe Regular Shoe Pain Scale: 0-10 Numeric Is Patient Pain Free? Yes Yes - Nurse 1 - General Ulcer Measurement Start: 12/09/21 10:54 Freq: Status: Active Protocol: Activity Type Activity Date Activity User E-sign Co-sign Detail Recorded Client Recorded Date Recorded By Document 12/09/21 10:55 [place] [id number] 12/09/21 11:07 AK 12/09/21 10:55 Wound Center Nurse 1 #15 RLE medial -Combined with other wound No -Current Size (cm) - Length 0.1 -Current Size (cm) - Width 0.1 -Current Size (cm) - Depth 0.1 -Total Square Cm 0.01 -Photo Taken Yes -Epithelialization Large 67-100% -Tunneling No -Undermining/Tunneling No -Circular Undermining No -Exudate Amt None Present - Nurse 2 - General Ulcer CM Notes Start: 12/09/21 10:54 Freq: Status: Active Protocol: Activity Type Activity Date Activity User E-sign Co-sign Detail Recorded Client Recorded Date Recorded By Document 12/09/21 11:27 MW [id number] 12/09/21 11:51 MW Document 12/16/21 11:33 MW [id number] 12/16/21 11:41 MW 12/09/21 12/16/21 11:27 11:33 Wound Center Nurse 2 -Time 11:44 -Correct Patient Yes -Correct Side, Site, Position Yes -Correct Procedure Yes -Procedure Performed No -Post Debridement (cm) - Length 0 -Post Debridement (cm) - Width 0 -Post Debridement (cm) - Depth 0 -Total Square (Post) (cm) 0 -Wound/Ulcer Outcome Healed- Epithelialized #14 left buttock -Time 11:51 11:33 -Correct Patient Yes Yes -Correct Side, Site, Position Yes Yes -Correct Procedure Yes Yes -Procedure Performed Yes No -Type of Procedure Debridement -Clinical Debridement Subcutaneous -Tissue Removed Subcutaneous -Post Debridement (cm) - Length 0.1 0.1 -Post Debridement (cm) - Width 0.1 0.1 -Post Debridement (cm) - Depth 0.7 0.5 -Total Square (Post) (cm) 0.01 0.01 -Area of Debridement (cm) - Length 0.1 0.1 -Area of Debridement (cm) - Width 0.1 0.1 -Total Square (Area) (cm) 0.01 0.01 -Tunneling No No -Undermining/Tunneling No No -Circular Undermining No No -Wound/Ulcer Outcome Not Healed Not Healed -Ulcer Cleansing Rinsed/ Irrigated with Saline -Foul Odor after Cleansing No -Bioengineered Tissue No -Bleeding Controlled with Pressure -Treatment Response Procedure Tolerated Well -Offloading No -Debridement - Subq, 1st 20sq cm No Pain Scale: 0-10 Numeric Is Patient Pain Free? Yes Yes - Nurse 3 - General Ulcer D/C NN Start: 12/09/21 10:54 Freq: Status: Active Protocol: Activity Type Activity Date Activity User E-sign Co-sign Detail Recorded Client Recorded Date Recorded By Document 12/09/21 11:51 MW [id number] 12/09/21 11:52 MW Document 12/16/21 11:41 MW [id number] 12/16/21 11:42 MW 12/09/21 12/16/21 11:51 11:41 Wound Care Nurse 3 #14 left buttock -Ulcer Cleansing Rinsed/ Rinsed/ Irrigated with Irrigated with Saline Saline -Foul Odor after Cleansing No No -Negative Pressure Wound Therapy N/A N/A -Primary Dressing Applied Promogran Promogran Inez Matter Inez Matter -Primary Dressing Covered/Secured with Dry Gauze, Dry Gauze, Secured with Secured with Tape Tape -Promogran Inez Matter 1 1 Treatment Response Procedure Procedure Tolerated Well Tolerated Well Pain Scale: 0-10 Numeric Is Patient Pain Free? Yes Yes Teaching: Wound Center Dressing Your Wound -Person Taught Patient -Teaching Method Discussion, Demonstration -Response to teaching Verbalize understanding WC - Visit Discharge Discharge Condition Stable Stable Ambulatory Status Ambulatory, Ambulatory Walker Transportation Private Auto Private Auto Accompanied by SELF self Medication Reconcilliation completed & No No provided to patient/care provider Clinical Summary of Care Provided Yes Yes Additional Wound Wound debrided: left buttock Laterality: Left Type of Debridement: Excisional debridement Anesthesia Used: 4% Lidocaine Solution Depth: Down to and including healthy tissue and in the subcutaneous layer Percentage of wound debrided: 100 Instrument Used: - (probe) Tissue Removed: Yellow slough, devitalized tissue Severity: Fat Layer Exposed Amount of bleeding with debridement: Mild Bleeding Controlled with: Compression and gauze Patient tolerated procedure: Patient tolerated procedure well Assessment/Plan Assessment/Plan (1) Decubitus ulcer of left buttock, stage 2: CODE(S): L89.322 - Pressure ulcer of left buttock, stage 2 (2) Postoperative wound dehiscence: CODE(S): T81.31XA - Disruption of external operation (surgical) wound, not elsewhere classified, initial encounter QUALIFIERS: Encounter type: subsequent encounter Qualified Code(s): T81.31XD - Disruption of external operation (surgical) wound, not elsewhere classified, subsequent encounter (3) Ulcer of abdomen wall with fat layer exposed: CODE(S): L98.492 - Non-pressure chronic ulcer of skin of other sites with fat layer exposed (4) Obesity: CODE(S): E66.9 - Obesity, unspecified QUALIFIERS: Obesity type: unspecified obesity type Obesity classification: adult class 3 (BMI >= 40) Serious obesity comorbidity presence: without serious comorbidity Body mass index: BMI 50.0-59.9 Qualified Code(s): E66.01 - Morbid (severe) obesity due to excess calories; Z68.43 - Body mass index [BMI] 50.0-59.9, adult PLAN: Young Navarro's ulcer of her abdomen is healed. Her right senior remains healed today. Her ulcer of left buttock was evaluated and debrided today at the wound healing center. She has had labs approx. 2 months ago to evaluate her nutrition and for diabetes which nutrition is adequate and A1C was less than 6.0%. Her left buttock ulcer will be treated with Inez packed into the ulcer cavity and covered with gauze and tape. We discussed offloading of the site which she has been doing and we also encouraged increased protein intake, weight loss and proper cleansing of the ulcer to facilitate healing. She was advised to call if there are any increased odor, pain, drainage or erythema. She will return in 1 week for wound care.
== END 2021-12-21 23:59 | disposition home or self-care (01) ==
LOC: WC 11:00
PROVIDERS: PCP Family Medicine; Visit Provider Family Medicine
DX: L89.322 Pressure ulcer of left buttock, stage 2 (principal); Z93.2 Ileostomy status; E66.01 Morbid (severe) obesity due to excess calories; Z68.45 Body mass index [BMI] 70 or greater, adult; T81.31XA Disruption of external operation (surgical) wound, not elsewhere classified, initial encounter; Z79.01 Long term (current) use of anticoagulants; Z79.82 Long term (current) use of aspirin; Z79.899 Other long term (current) drug therapy
CPT/HCPCS: 99213; G0463

== ENCOUNTER 2022-01-06 11:00 | Outpatient (RCR) | payer MEDICARE, MEDICAID, SELFPAY ==
[2021-12-22 00:30] VITALS: BP 149/63; PULSE 77; RESP 18; TEMP 36.2; BMI 112.3
[2021-12-23 11:08] VITALS: BP 116/70; PULSE 110; RESP 18; TEMP 36.3; BMI 112.3
--- NOTE | 2021-12-23 11:09 | WC ---
Dr Bose will measure wound with wound dressing
--- NOTE | 2021-12-23 13:14 | PN.PCM_ITS ---
History of Present Illness Date of Service: 12/23/21 Chief Complaint: non-healing ulcer of left buttock History of Wound: This is a 46-year-old morbidly obese female who presents today for treatment of a nonhealing ulcer of her left buttock at the site of a previous fistula. The area started draining in September and continues to drain serosanguinous fluid light to moderate drainage intermittently. She has been tolerating treatment with Inez packed into the fistula tract. She has been on and off antibiotic treatment for it. She has an ileostomy so there is no stool contamination to the area. She has not been able to change dressings regularly. She is on chronic anticoagulation with warfarin and is obese. She has no odor, erythema or other signs of infection. Subjective Subjective Melanie returns today for follow up of nonhealing ulcer of her left buttock. The ulcer on her left buttock is still not healed but she has not been able to do dressings as prescribed. It is near the site of a previous fistula. She denies fever, chills, erythema, odor. Objective Data Objective Data Vital Signs: Vital Signs Temp Pulse Resp BP 97.4 F L 110 H 18 116/70 12/23/21 11:08 12/23/21 11:08 12/23/21 11:08 12/23/21 11:08 Weight: 335 kg Body Mass Index (BMI) 112.3 Physical Exam Const alert, oriented x3 and no apparent distress General Appearance: cooperative and comfortable HEENT normocephalic and head/scalp atraumatic Resp normal respiratory effort Effort and Inspection: able to speak in complete sentences Cardio regular rate and regular rhythm Skin Wounds: wounds noted Wound Narrative: as in clinical panel Psych mental status grossly normal, thought process normal, cooperative and affect normal Debridement Note Debridement Note Post-Debridement Measurements and Additional Note: Post-Debridement Measurements/Treatment CIARRA - Nurse 1 - General Ulcer Assessment Start: 12/23/21 11:08 Freq: Status: Active Protocol: NILTON Activity Type Activity Date Activity User E-sign Co-sign Detail Recorded Client Recorded Date Recorded By Document 12/23/21 11:08 DL [id number] 12/23/21 11:09 DL 12/23/21 11:08 - Today's Visit Information Type of service Follow-up Visit (Physician/STORAGE SPECIALIST ) Arrival Mode Ambulatory, Walker Transfer Assistance None Patient Identification Verified (Name & Yes ) Patient Requires Transmission-Based No Precautions Height and Weight Body Mass Index (BMI) 112.3 BMI Classification Obese Vital Signs Temperature (97.8 F-99.1 F) 97.4 F L Temperature Source Temporal Pulse Rate (60-100) 110 H Pulse Location Monitor Respiratory Rate (12-18) 18 Respiratory rate source Observation Blood Pressure (90/60-120/80) 116/70 Blood Pressure Mean (mm Hg) 85 Source Monitor Position Semi-Fowlers Blood Pressure Location Left Arm History Since Last Visit- (Skip if this is Patient's initial visit) Have you changed medications since your No last visit? Any new allergies or adverse reactions No Had a fall/change in ADL's that may No increase risk of falls Signs or symptoms of abuse and/or No neglect since last visit Have you been in the hospital since your No last visit? Has dressing in place as prescribed Yes Has compression in place as prescribed No Has offloadiing in place as prescribed No Experienced any changes in pain level or No management Pain Scale: 0-10 Numeric Is Patient Pain Free? Yes - Nurse 2 - General Ulcer CM Notes Start: 12/23/21 11:08 Freq: Status: Active Protocol: Activity Type Activity Date Activity User E-sign Co-sign Detail Recorded Client Recorded Date Recorded By Document 12/23/21 11:29 MW [id number] 12/23/21 11:38 MW 12/23/21 11:29 Wound Center Nurse 2 #14 left buttock -Time 11:37 -Correct Patient Yes -Correct Side, Site, Position Yes -Correct Procedure Yes -Procedure Performed No -Post Debridement (cm) - Length 0.1 -Post Debridement (cm) - Width 0.1 -Post Debridement (cm) - Depth 0.2 -Total Square (Post) (cm) 0.01 -Wound/Ulcer Outcome Not Healed Pain Scale: 0-10 Numeric Is Patient Pain Free? Yes - Nurse 3 - General Ulcer D/C NN Start: 12/23/21 11:08 Freq: Status: Active Protocol: Activity Type Activity Date Activity User E-sign Co-sign Detail Recorded Client Recorded Date Recorded By Document 12/23/21 11:38 MW [id number] 12/23/21 11:39 MW 12/23/21 11:38 Wound Care Nurse 3 #14 left buttock -Ulcer Cleansing Rinsed/ Irrigated with Saline -Foul Odor after Cleansing No -Negative Pressure Wound Therapy N/A -Primary Dressing Applied Promogran Inez Matter -Primary Dressing Covered/Secured with Dry Gauze, Secured with Tape -Promogran Inez Matter 1 Treatment Response Procedure Tolerated Well Pain Scale: 0-10 Numeric Is Patient Pain Free? Yes Teaching: Wound Center Dressing Your Wound -Person Taught Patient -Teaching Method Discussion, Demonstration -Response to teaching Verbalize understanding WC - Visit Discharge Discharge Condition Stable Ambulatory Status Ambulatory, Walker Transportation Private Auto Accompanied by self Medication Reconcilliation completed & No provided to patient/care provider Clinical Summary of Care Provided Yes Additional Wound Wound debrided: left buttock Laterality: Left Type of Debridement: Excisional debridement Anesthesia Used: 4% Lidocaine Solution Depth: Down to and including healthy tissue and in the subcutaneous layer Percentage of wound debrided: 100 Instrument Used: - (probe) Tissue Removed: Yellow slough, devitalized tissue Severity: Fat Layer Exposed Amount of bleeding with debridement: Mild Bleeding Controlled with: Compression and gauze Patient tolerated procedure: Patient tolerated procedure well Assessment/Plan Assessment/Plan (1) Decubitus ulcer of left buttock, stage 2: CODE(S): L89.322 - Pressure ulcer of left buttock, stage 2 (2) Postoperative wound dehiscence: CODE(S): T81.31XA - Disruption of external operation (surgical) wound, not elsewhere classified, initial encounter QUALIFIERS: Encounter type: subsequent encounter Qualified Code(s): T81.31XD - Disruption of external operation (surgical) wound, not elsewhere classified, subsequent encounter (3) Ulcer of abdomen wall with fat layer exposed: CODE(S): L98.492 - Non-pressure chronic ulcer of skin of other sites with fat layer exposed (4) Obesity: CODE(S): E66.9 - Obesity, unspecified QUALIFIERS: Obesity type: unspecified obesity type Obesity classification: adult class 3 (BMI >= 40) Serious obesity comorbidity presence: without serious comorbidity Body mass index: BMI 50.0-59.9 Qualified Code(s): E66.01 - Morbid (severe) obesity due to excess calories; Z68.43 - Body mass index [BMI] 50.0-59.9, adult PLAN: Plan Melanie's ulcer of her abdomen is healed. Her right senior remains healed today. Her ulcer of left buttock was evaluated and debrided today at the wound healing center. She has had labs approx. 2 months ago to evaluate her nutrition and for diabetes which nutrition is adequate and A1C was less than 6.0%. Her left buttock ulcer will be treated with Inez packed into the ulcer cavity and covered with gauze and tape. We discussed offloading of the site which she has been doing and we also encouraged increased protein intake, weight loss and proper cleansing of the ulcer to facilitate healing. She was advised to call if there are any increased odor, pain, drainage or erythema. She will return in 1 week for wound care.
[2022-01-06 11:07] VITALS: BP 139/63; PULSE 115; TEMP 36.2; BMI 112.3
--- NOTE | 2022-01-06 14:35 | PN.PCM_ITS ---
History of Present Illness Date of Service: 01/06/22 Chief Complaint: non-healing ulcer of left buttock History of Wound: This is a 46-year-old morbidly obese female who presents today for treatment of a nonhealing ulcer of her left buttock at the site of a previous fistula. The area started draining in September and continues to drain serosanguinous fluid light to moderate drainage intermittently. She has been tolerating treatment with Inez packed into the fistula tract. She has been on and off antibiotic treatment for it. She has an ileostomy so there is no stool contamination to the area. She has not been able to change dressings regularly. She is on chronic anticoagulation with warfarin and is obese. She has no odor, erythema or other signs of infection. Subjective Subjective Melanie returns today for follow up of nonhealing ulcer of her left buttock. The ulcer on her left buttock is still not healed but she has not been able to do dressings as prescribed. It is near the site of a previous fistula. She denies fever, chills, erythema, odor. She reports that the ulcer to her abdomen at her incision site had started to drain and bleed earlier this week. She has covered ith with a bandaid. Objective Data Objective Data Vital Signs: Vital Signs Temp Pulse Resp BP 97.2 F L 115 H 18 139/63 H 01/06/22 11:07 01/06/22 11:07 12/23/21 11:08 01/06/22 11:07 Weight: 335 kg Body Mass Index (BMI) 112.3 Physical Exam Const alert, oriented x3 and no apparent distress General Appearance: cooperative and comfortable HEENT normocephalic and head/scalp atraumatic Resp normal respiratory effort Effort and Inspection: able to speak in complete sentences Cardio regular rate and regular rhythm Skin Wounds: wounds noted Wound Narrative: as in clinical panel Psych mental status grossly normal, thought process normal, cooperative and affect normal Debridement Note Debridement Note Wound debrided: abdomen Laterality: Not Applicable Type of Debridement: Excisional debridement Anesthesia Used: 4% Lidocaine Solution and 5% Lidocaine Gel Depth: Down to and including healthy tissue and in the subcutaneous layer Percentage of wound debrided: 100 Instrument Used: 3mm curette Tissue Removed: Yellow slough, devitalized tissue Severity: Fat Layer Exposed Amount of bleeding with debridement: Mild Bleeding Controlled with: Compression and gauze Patient tolerated procedure: Patient tolerated procedure well Post-Debridement Measurements and Additional Note: Post-Debridement Measurements/Treatment CIARRA - Nurse 1 - General Ulcer Assessment Start: 12/23/21 11:08 Freq: Status: Active Protocol: NILTON Activity Type Activity Date Activity User E-sign Co-sign Detail Recorded Client Recorded Date Recorded By Document 12/23/21 11:08 RB [id number] 12/23/21 11:09 RB Document 01/06/22 11:07 KR [id number] 01/06/22 11:08 KR 12/23/21 01/06/22 11:08 11:07 WC - Today's Visit Information Type of service Follow-up Visit Follow-up Visit (Physician/COAT OPERATOR INSULATOR (Physician/COAT OPERATOR INSULATOR ) ) Arrival Mode Ambulatory, Ambulatory Walker Transfer Assistance None Patient Identification Verified (Name & Yes Yes ) Patient Requires Transmission-Based No Precautions Height and Weight Body Mass Index (BMI) 112.3 112.3 BMI Classification Obese Obese Vital Signs Temperature (97.8 F-99.1 F) 97.4 F L 97.2 F L Temperature Source Temporal Temporal Pulse Rate (60-100) 110 H 115 H Pulse Location Monitor Monitor Respiratory Rate (12-18) 18 Respiratory rate source Observation Blood Pressure (90/60-120/80) 116/70 139/63 H Blood Pressure Mean (mm Hg) 85 88 Source Monitor Monitor Position Semi-Fowlers Semi-Fowlers Blood Pressure Location Left Arm Right Arm History Since Last Visit- (Skip if this is Patient's initial visit) Have you changed medications since your No No last visit? Any new allergies or adverse reactions No No Had a fall/change in ADL's that may No No increase risk of falls Signs or symptoms of abuse and/or No No neglect since last visit Have you been in the hospital since your No No last visit? Has dressing in place as prescribed Yes Yes Has compression in place as prescribed No N/A Has offloadiing in place as prescribed No N/A Experienced any changes in pain level or No No management Left Footwear Regular Shoe Right Footwear Regular Shoe Pain Scale: 0-10 Numeric Is Patient Pain Free? Yes Yes CIARRA - Nurse 2 - General Ulcer CM Notes Start: 12/23/21 11:08 Freq: Status: Active Protocol: Activity Type Activity Date Activity User E-sign Co-sign Detail Recorded Client Recorded Date Recorded By Document 12/23/21 11:29 MW [id number] 12/23/21 11:38 MW Document 01/06/22 11:33 MW [id number] 01/06/22 11:50 MW 12/23/21 01/06/22 11:29 11:33 Wound Center Nurse 2 #15 Mid Abdomen -Time 11:40 -Correct Patient Yes -Correct Side, Site, Position Yes -Correct Procedure Yes -Procedure Performed Yes -Type of Procedure Debridement -Clinical Debridement Subcutaneous -Tissue Removed Subcutaneous -Post Debridement (cm) - Length 0.3 -Post Debridement (cm) - Width 0.2 -Post Debridement (cm) - Depth 0.1 -Total Square (Post) (cm) 0.06 -Area of Debridement (cm) - Length 0.3 -Area of Debridement (cm) - Width 0.2 -Total Square (Area) (cm) 0.06 -Tunneling No -Undermining/Tunneling No -Circular Undermining No -Wound/Ulcer Outcome Not Healed -Ulcer Cleansing Rinsed/ Irrigated with Saline -Foul Odor after Cleansing No -Bioengineered Tissue No -Bleeding Controlled with Pressure -Treatment Response Procedure Tolerated Well -Offloading No -Debridement - Subq, 1st 20sq cm Yes #14 left buttock -Time 11:37 11:41 -Correct Patient Yes Yes -Correct Side, Site, Position Yes Yes -Correct Procedure Yes Yes -Procedure Performed No No -Post Debridement (cm) - Length 0.1 0.1 -Post Debridement (cm) - Width 0.1 0.1 -Post Debridement (cm) - Depth 0.2 0.3 -Total Square (Post) (cm) 0.01 0.01 -Tunneling No -Undermining/Tunneling No -Circular Undermining No -Wound/Ulcer Outcome Not Healed Not Healed -Ulcer Cleansing Rinsed/ Irrigated with Saline Pain Scale: 0-10 Numeric Is Patient Pain Free? Yes Yes WC - Nurse 3 - General Ulcer D/C NN Start: 12/23/21 11:08 Freq: Status: Active Protocol: Activity Type Activity Date Activity User E-sign Co-sign Detail Recorded Client Recorded Date Recorded By Document 12/23/21 11:38 MW [id number] 12/23/21 11:39 MW Document 01/06/22 11:51 MW [id number] 01/06/22 11:52 MW 12/23/21 01/06/22 11:38 11:51 Wound Care Nurse 3 #15 Mid Abdomen -Ulcer Cleansing Rinsed/ Irrigated with Saline -Foul Odor after Cleansing No -Negative Pressure Wound Therapy N/A -Primary Dressing Applied C Hydrogel ($) -Primary Dressing Covered/Secured with Dry Gauze, Secured with Tape #14 left buttock -Ulcer Cleansing Rinsed/ Rinsed/ Irrigated with Irrigated with Saline Saline -Foul Odor after Cleansing No No -Negative Pressure Wound Therapy N/A N/A -Primary Dressing Applied Promogran Promogran Inez Matter Inez Matter -Primary Dressing Covered/Secured with Dry Gauze, Dry Gauze, Secured with Secured with Tape Tape -Promogran Inez Matter 1 1 Treatment Response Procedure Procedure Tolerated Well Tolerated Well Pain Scale: 0-10 Numeric Is Patient Pain Free? Yes Yes Teaching: Wound Center Dressing Your Wound -Person Taught Patient Patient -Teaching Method Discussion, Discussion, Demonstration Demonstration -Response to teaching Verbalize Verbalize understanding understanding WC - Visit Discharge Discharge Condition Stable Stable Ambulatory Status Ambulatory, Ambulatory, Walker Walker Transportation Private Auto Private Auto Accompanied by self self Medication Reconcilliation completed & No No provided to patient/care provider Clinical Summary of Care Provided Yes Yes Additional Wound Wound debrided: left buttock Laterality: Left Type of Debridement: Selective debridement Anesthesia Used: 4% Lidocaine Solution Depth: Down to and including healthy tissue and in the subcutaneous layer Percentage of wound debrided: 100 Instrument Used: - (probe) Tissue Removed: Yellow slough, devitalized tissue Severity: Fat Layer Exposed Amount of bleeding with debridement: Mild Bleeding Controlled with: Compression and gauze Patient tolerated procedure: Patient tolerated procedure well Assessment/Plan Assessment/Plan (1) Decubitus ulcer of left buttock, stage 2: CODE(S): L89.322 - Pressure ulcer of left buttock, stage 2 (2) Postoperative wound dehiscence: CODE(S): T81.31XA - Disruption of external operation (surgical) wound, not elsewhere classified, initial encounter QUALIFIERS: Encounter type: subsequent encounter Qualified Code(s): T81.31XD - Disruption of external operation (surgical) wound, not elsewhere classified, subsequent encounter (3) Ulcer of abdomen wall with fat layer exposed: CODE(S): L98.492 - Non-pressure chronic ulcer of skin of other sites with fat layer exposed (4) Obesity: CODE(S): E66.9 - Obesity, unspecified QUALIFIERS: Obesity type: unspecified obesity type Obesity classification: adult class 3 (BMI >= 40) Serious obesity comorbidity presence: without serious comorbidity Body mass index: BMI 50.0-59.9 Qualified Code(s): E66.01 - Morbid (severe) obesity due to excess calories; Z68.43 - Body mass index [BMI] 50.0-59.9, adult PLAN: Young Navarro's ulcer of her abdomen reopened. This was evaluated and debrided today. Her right senior remains healed today. Her ulcer of left buttock was evaluated and debrided today at the wound healing center. She has had labs approx. 2 months ago to evaluate her nutrition and for diabetes which nutrition is adequate and A1C was less than 6.0%. Her left buttock ulcer will be treated with Inez packed into the ulcer cavity and covered with gauze and tape. Her abdomen will be treated with hydrogel and gauze. We discussed offloading of the site which she has been doing and we also encouraged increased protein intake, weight loss and proper cleansing of the ulcer to facilitate healing. She was advised to call if there are any increased odor, pain, drainage or erythema. She will return in 1 week for wound care.
== END 2022-01-20 23:59 | disposition home or self-care (01) ==
LOC: WC 11:00
PROVIDERS: PCP Family Medicine; Visit Provider Family Medicine
DX: T81.31XA Disruption of external operation (surgical) wound, not elsewhere classified, initial encounter (principal); L89.322 Pressure ulcer of left buttock, stage 2; Z93.2 Ileostomy status; L98.492 Non-pressure chronic ulcer of skin of other sites with fat layer exposed; E66.01 Morbid (severe) obesity due to excess calories; Z68.43 Body mass index [BMI] 50.0-59.9, adult; Z79.01 Long term (current) use of anticoagulants; Z79.82 Long term (current) use of aspirin; Z79.899 Other long term (current) drug therapy
CPT/HCPCS: 11042; 99213; G0463

== ENCOUNTER 2022-02-17 10:30 | Outpatient (RCR) | payer MEDICARE, MEDICAID, SELFPAY ==
[2022-01-21 01:19] VITALS: BP 139/63; PULSE 115; RESP 18; TEMP 36.2; BMI 112.3
[2022-02-10 11:02] VITALS: BP 128/75; PULSE 84; TEMP 36.4; BMI 112.3
--- NOTE | 2022-02-10 14:08 | PCM.WC.PN ---
History of Present Illness Date of Service: 02/10/22 Chief Complaint: non-healing ulcer of left buttock, abdomen, right senior History of Wound: This is a 46-year-old morbidly obese female who presents today for treatment of a nonhealing ulcer of her left buttock at the site of a previous fistula. The area started draining in September and continues to drain serosanguinous fluid light to moderate drainage intermittently. She has been tolerating treatment with Inez packed into the fistula tract. She has been on and off antibiotic treatment for it. She has an ileostomy so there is no stool contamination to the area. She has not been able to change dressings regularly. She is on chronic anticoagulation with warfarin and is obese. She has no odor, erythema or other signs of infection. Subjective Subjective Melanie returns today for follow up of nonhealing ulcer of her left buttock. The ulcer on her left buttock is nearly healed but she has not been able to do dressings as prescribed. It is near the site of a previous fistula. She denies fever, chills, erythema, odor. She reports that the ulcer to her abdomen at her incision site had started to drain and bleed earlier this week. She has covered it with gauze and tape and has been using hydrogel. She also has a new wound to her right senior from striking a cement flower pot and a wound to her left second toe from tripping and getting an abrasion. These occurred 2 weeks ago. Objective Data Objective Data Vital Signs: Vital Signs Temp Pulse Resp BP 97.6 F L 84 18 128/75 H 02/10/22 11:02 02/10/22 11:02 01/21/22 01:19 02/10/22 11:02 Weight: 335 kg Body Mass Index (BMI) 112.3 Physical Exam Const alert, oriented x3 and no apparent distress General Appearance: cooperative and comfortable HEENT normocephalic and head/scalp atraumatic Resp normal respiratory effort Effort and Inspection: able to speak in complete sentences Cardio regular rate and regular rhythm Skin Wounds: wounds noted Wound Narrative: as in clinical panel Psych mental status grossly normal, thought process normal, cooperative and affect normal Debridement Note Debridement Note Post-Debridement Measurements and Additional Note: Post-Debridement Measurements/Treatment CIARRA - Nurse 1 - General Ulcer Assessment Start: 02/10/22 11:02 Freq: Status: Active Protocol: WC.LOWEXT Activity Type Activity Date Activity User E-sign Co-sign Detail Recorded Client Recorded Date Recorded By Document 02/10/22 11:02 PIPER [id number] 02/10/22 11:03 CA 02/10/22 11:02 - Today's Visit Information Type of service 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 Any new allergies or adverse reactions No Had a fall/change in ADL's that may No increase risk of falls Signs or symptoms of abuse and/or No neglect since last visit Have you been in the hospital since your No last visit? Has dressing in place as prescribed Yes Has compression in place as prescribed N/A Has offloadiing in place as prescribed N/A Experienced any changes in pain level or No management Left Footwear Regular Shoe Right Footwear Regular Shoe Pain Scale: 0-10 Numeric Is Patient Pain Free? Yes - Nurse 1 - General Ulcer Measurement Start: 02/10/22 11:02 Freq: Status: Active Protocol: Activity Type Activity Date Activity User E-sign Co-sign Detail Recorded Client Recorded Date Recorded By Document 02/10/22 11:02 PIPER [id number] 02/10/22 11:03 CA 02/10/22 11:02 Wound Center Nurse 1 #15 Mid Abdomen -Current Size (cm) - Length 0.8 -Current Size (cm) - Width 0.4 -Current Size (cm) - Depth 0.1 -Total Square Cm 0.32 -Exudate Amt None Present -Wound Margin Distinct, Outline Attached -Granulation Amt Small (1-33%) -Granulation Quality Skyline -Necrosis Amt Small (1-33%) -Necrotic Tissue Type Adherent Slough -Texture (Meg-wound Skin Appearance) Assessed, Scarring -Moisture (Meg-wound Skin Appearance) No Abnormality, Assessed -Color (Meg-wound Skin Appearance) No Abnormality, Assessed -Temperature (Meg-wound Skin No Abnormality Appearance) (Pt Warm) -Tenderness on Palpation (Meg-wound No Skin Appearance) -Ulcer Cleansing Rinsed/ Irrigated with Saline -Foul Odor after Cleansing No -Anesthetic Used 5% Lidocaine Gel WC - Nurse 2 - General Ulcer CM Notes Start: 02/10/22 11:02 Freq: Status: Active Protocol: Activity Type Activity Date Activity User E-sign Co-sign Detail Recorded Client Recorded Date Recorded By Document 02/10/22 11:24 MW [id number] 02/10/22 11:51 MW 02/10/22 11:24 Wound Center Nurse 2 #17 left 2nd toe -Time 11:39 -Correct Patient Yes -Correct Side, Site, Position Yes -Correct Procedure Yes -Procedure Performed Yes -Type of Procedure Debridement -Clinical Debridement Subcutaneous -Tissue Removed Subcutaneous -Post Debridement (cm) - Length 0.2 -Post Debridement (cm) - Width 0.1 -Post Debridement (cm) - Depth 0.1 -Total Square (Post) (cm) 0.02 -Area of Debridement (cm) - Length 0.2 -Area of Debridement (cm) - Width 0.1 -Total Square (Area) (cm) 0.02 -Tunneling No -Undermining/Tunneling No -Circular Undermining No -Wound/Ulcer Outcome Not Healed -Ulcer Cleansing Rinsed/ Irrigated with Saline -Foul Odor after Cleansing No -Bioengineered Tissue No -Bleeding Controlled with Pressure -Treatment Response Procedure Tolerated Well -Offloading No -Debridement - Subq, 1st 20sq cm No #16 right senior cluster -Time 11:28 -Correct Patient Yes -Correct Side, Site, Position Yes -Correct Procedure Yes -Procedure Performed Yes -Type of Procedure Debridement -Clinical Debridement Subcutaneous -Tissue Removed Subcutaneous -Post Debridement (cm) - Length 0.7 -Post Debridement (cm) - Width 1.0 -Post Debridement (cm) - Depth 0.1 -Total Square (Post) (cm) 0.70 -Area of Debridement (cm) - Length 0.7 -Area of Debridement (cm) - Width 1.0 -Total Square (Area) (cm) 0.70 -Tunneling No -Undermining/Tunneling No -Circular Undermining No -Wound/Ulcer Outcome Not Healed -Ulcer Cleansing Rinsed/ Irrigated with Saline -Foul Odor after Cleansing No -Bioengineered Tissue No -Bleeding Controlled with Pressure -Treatment Response Procedure Tolerated Well -Offloading No -Debridement - Subq, 1st 20sq cm No #15 Mid Abdomen -Time 11:24 -Correct Patient Yes -Correct Side, Site, Position Yes -Correct Procedure Yes -Procedure Performed Yes -Type of Procedure Debridement -Clinical Debridement Subcutaneous -Tissue Removed Subcutaneous -Post Debridement (cm) - Length 0.7 -Post Debridement (cm) - Width 0.4 -Post Debridement (cm) - Depth 0.1 -Total Square (Post) (cm) 0.28 -Area of Debridement (cm) - Length 0.7 -Area of Debridement (cm) - Width 0.4 -Total Square (Area) (cm) 0.28 -Tunneling No -Undermining/Tunneling No -Circular Undermining No -Wound/Ulcer Outcome Not Healed -Ulcer Cleansing Rinsed/ Irrigated with Saline -Foul Odor after Cleansing No -Bioengineered Tissue No -Bleeding Controlled with Pressure -Treatment Response Procedure Tolerated Well -Offloading No -Debridement - Subq, 1st 20sq cm Yes #14 left buttock -Time 11:49 -Correct Patient Yes -Correct Side, Site, Position Yes -Correct Procedure Yes -Procedure Performed No -Post Debridement (cm) - Length 0.1 -Post Debridement (cm) - Width 0.1 -Post Debridement (cm) - Depth 0.1 -Total Square (Post) (cm) 0.01 -Wound/Ulcer Outcome Not Healed Pain Scale: 0-10 Numeric Is Patient Pain Free? Yes WC - Nurse 3 - General Ulcer D/C NN Start: 02/10/22 11:02 Freq: Status: Active Protocol: Activity Type Activity Date Activity User E-sign Co-sign Detail Recorded Client Recorded Date Recorded By Document 02/10/22 12:04 PIPER [id number] 02/10/22 12:06 AK 02/10/22 12:04 Wound Care Nurse 3 #17 left 2nd toe -Ulcer Cleansing Rinsed/ Irrigated with Saline -Foul Odor after Cleansing No -Negative Pressure Wound Therapy N/A -Primary Dressing Applied C Hydrogel ($) -Primary Dressing Covered/Secured with Dry Gauze #16 right senior cluster -Other Dressing hydrogel -Primary Dressing Covered/Secured with Dry Gauze, Secured with Tape #15 Mid Abdomen -Ulcer Cleansing Rinsed/ Irrigated with Saline -Foul Odor after Cleansing No -Negative Pressure Wound Therapy N/A -Primary Dressing Applied Promogran -Primary Dressing Covered/Secured with Dry Gauze, Secured with Tape -Promogran 1 #14 left buttock -Ulcer Cleansing Rinsed/ Irrigated with Saline -Foul Odor after Cleansing No -Negative Pressure Wound Therapy N/A -Primary Dressing Applied Mepilex Border, Promogran -Mepilex Border 1 -Promogran 1 Pain Scale: 0-10 Numeric Is Patient Pain Free? Yes WC - Visit Discharge Discharge Condition Stable Ambulatory Status Ambulatory, Walker Transportation Private Auto Medication Reconcilliation completed & Yes provided to patient/care provider Clinical Summary of Care Provided Yes Assessment/Plan Assessment/Plan (1) Decubitus ulcer of left buttock, stage 2: CODE(S): L89.322 - Pressure ulcer of left buttock, stage 2 (2) Postoperative wound dehiscence: CODE(S): T81.31XA - Disruption of external operation (surgical) wound, not elsewhere classified, initial encounter QUALIFIERS: Encounter type: subsequent encounter Qualified Code(s): T81.31XD - Disruption of external operation (surgical) wound, not elsewhere classified, subsequent encounter (3) Ulcer of abdomen wall with fat layer exposed: CODE(S): L98.492 - Non-pressure chronic ulcer of skin of other sites with fat layer exposed (4) Obesity: CODE(S): E66.9 - Obesity, unspecified QUALIFIERS: Obesity type: unspecified obesity type Obesity classification: adult class 3 (BMI >= 40) Serious obesity comorbidity presence: without serious comorbidity Body mass index: BMI 50.0-59.9 Qualified Code(s): E66.01 - Morbid (severe) obesity due to excess calories; Z68.43 - Body mass index [BMI] 50.0-59.9, adult (5) Open wound of right lower extremity: CODE(S): S81.801A - Unspecified open wound, right lower leg, initial encounter QUALIFIERS: Encounter type: subsequent encounter Qualified Code(s): S81.801D - Unspecified open wound, right lower leg, subsequent encounter (6) Chronic ulcer of left foot with fat layer exposed: CODE(S): L97.522 - Non-pressure chronic ulcer of other part of left foot with fat layer exposed PLAN: Plan Melanie's ulcer of her abdomen reopened and is worse. This was evaluated and debrided today. Her right senior was evaluated and debrided today as well as left second toe ulcer. Her ulcer of left buttock was evaluated and debrided today at the wound healing center. She has had labs approx. 2 months ago to evaluate her nutrition and for diabetes which nutrition is adequate and A1C was less than 6.0%. Her left buttock ulcer will be treated with Promogran to the ulcer and covered with gauze and tape. Her abdomen will be treated with promogran and silicone foam bordered dressing. Her right senior will be treated with hydrogel and gauze. Her left second toe ulcer will be treated with hydrogel and gauze. We discussed offloading of the site which she has been doing and we also encouraged increased protein intake, weight loss and proper cleansing of the ulcer to facilitate healing. She was advised to call if there are any increased odor, pain, drainage or erythema. She will return in 1 week for wound care.
[2022-02-17 10:40] VITALS: BP 111/57; PULSE 115; RESP 18; TEMP 36.1; BMI 112.3
--- NOTE | 2022-02-17 13:12 | RAD_ITS ---
EXAM: XR LEFT TOES, 2 OR MORE VIEWS CLINICAL INDICATION: PAIN TECHNIQUE: Frontal, lateral and oblique views of the toes of the left foot. This report was created using [employer] report generation technology. COMPARISON: None. FINDINGS: BONES/JOINTS: Unremarkable. No acute fracture. No dislocation. SOFT TISSUES: Diffuse soft tissue swelling around the foot. Moderate degenerative findings along the tarsal bones and tarsometatarsal joints. No radiopaque foreign body. VASCULATURE: There are atherosclerotic vascular calcifications. RAD/Toe(s) Min 2 Views IMPRESSION: Diffuse soft tissue swelling around the foot. Moderate degenerative findings along the tarsal bones and tarsometatarsal joints. Electronically Signed: Hu Leal MD at 16:48 EDT ,
--- NOTE | 2022-02-17 13:41 | PN.PCM_ITS ---
History of Present Illness Date of Service: 02/17/22 Chief Complaint: non-healing ulcer of left buttock, abdomen, right senior History of Wound: This is a 46-year-old morbidly obese female who presents today for treatment of a nonhealing ulcer of her left buttock at the site of a previous fistula. The area started draining in September and continues to drain serosanguinous fluid light to moderate drainage intermittently. She has been tolerating treatment with Inez packed into the fistula tract. She has been on and off antibiotic treatment for it. She has an ileostomy so there is no stool contamination to the area. She has not been able to change dressings regularly. She is on chronic anticoagulation with warfarin and is obese. She has no odor, erythema or other signs of infection. Subjective Subjective Melanie returns today for follow up of nonhealing ulcer of her left buttock. The ulcer on her left buttock is healed. She denies fever, chills, erythema, odor. The ulcer to her abdomen at her incision site is much improved. The wound to her right senior and her left second toe are healed. Objective Data Objective Data Vital Signs: Vital Signs Temp Pulse Resp BP 97 F L 115 H 18 111/57 L 02/17/22 10:40 02/17/22 10:40 02/17/22 10:40 02/17/22 10:40 Weight: 335 kg Body Mass Index (BMI) 112.3 Lab / Micro Data Micro: Microbiology 02/10/22 11:30 Wound Abcess - Abdominal Gram Stain - Final 02/10/22 11:30 Wound Abcess - Abdominal Wound Culture - Final Staphylococcus epidermidis Physical Exam Const alert, oriented x3 and no apparent distress General Appearance: cooperative and comfortable HEENT normocephalic and head/scalp atraumatic Resp normal respiratory effort Effort and Inspection: able to speak in complete sentences Cardio regular rate and regular rhythm Skin Wounds: wounds noted Wound Narrative: as in clinical panel Psych mental status grossly normal, thought process normal, cooperative and affect normal Debridement Note Debridement Note Wound debrided: abdomen Laterality: Not Applicable Type of Debridement: Excisional debridement Anesthesia Used: 4% Lidocaine Solution Depth: Down to and including healthy tissue and in the subcutaneous layer Percentage of wound debrided: 100 Instrument Used: 3mm curette Tissue Removed: yellow slough, devitalized tissue Severity: Fat Layer Exposed Amount of bleeding with debridement: Mild Bleeding Controlled with: Compression and gauze Patient tolerated procedure: Patient tolerated procedure well Post-Debridement Measurements and Additional Note: Post-Debridement Measurements/Treatment CIARRA - Nurse 1 - General Ulcer Assessment Start: 02/10/22 11:02 Freq: Status: Active Protocol: NILTON Activity Type Activity Date Activity User E-sign Co-sign Detail Recorded Client Recorded Date Recorded By Document 02/10/22 11:02 AK [id number] 02/10/22 11:03 AK Document 02/17/22 10:40 RB [id number] 02/17/22 10:49 RB 02/10/22 02/17/22 11:02 10:40 WC - Today's Visit Information Type of service Follow-up Visit Follow-up Visit (Physician/DRYWALLER (Physician/DRYWALLER ) ) Arrival Mode Ambulatory, Ambulatory, Walker Walker Transfer Assistance None Patient Identification Verified (Name & Yes Yes ) Patient Requires Transmission-Based No Precautions Height and Weight Body Mass Index (BMI) 112.3 112.3 BMI Classification Obese Obese Vital Signs Temperature (97.8 F-99.1 F) 97.6 F L 97 F L Temperature Source Temporal Temporal Pulse Rate (60-100) 84 115 H Pulse Location Monitor Monitor Respiratory Rate (12-18) 18 Respiratory rate source Observation Blood Pressure (90/60-120/80) 128/75 H 111/57 L Blood Pressure Mean (mm Hg) 92 75 Source Monitor Monitor Position Sitting Semi-Fowlers Blood Pressure Location Left Arm Left Arm History Since Last Visit- (Skip if this is Patient's initial visit) Have you changed medications since your No No last visit? Any new allergies or adverse reactions No No Had a fall/change in ADL's that may No No increase risk of falls Signs or symptoms of abuse and/or No No neglect since last visit Have you been in the hospital since your No No last visit? Has dressing in place as prescribed Yes Yes Has compression in place as prescribed N/A No Has offloadiing in place as prescribed N/A No Experienced any changes in pain level or No No management Left Footwear Regular Shoe Right Footwear Regular Shoe Pain Scale: 0-10 Numeric Is Patient Pain Free? Yes Yes CIARRA - Nurse 1 - General Ulcer Measurement Start: 02/10/22 11:02 Freq: Status: Active Protocol: Activity Type Activity Date Activity User E-sign Co-sign Detail Recorded Client Recorded Date Recorded By Document 02/10/22 11:02 AK [id number] 02/10/22 11:03 AK Document 02/17/22 10:40 RB [id number] 02/17/22 10:49 RB 02/10/22 02/17/22 11:02 10:40 Wound Center Nurse 1 #17 left 2nd toe -Combined with other wound No -Current Size (cm) - Length 0.1 -Current Size (cm) - Width 0.1 -Current Size (cm) - Depth 0.1 -Total Square Cm 0.01 -Photo Taken Yes -Tunneling No -Undermining/Tunneling No -Circular Undermining No -Exudate Amt Small -Exudate Type Serosanguineous -Wound Margin Distinct, Outline Attached -Granulation Amt Medium (34-66%) -Granulation Quality [place] -Slough/Fibrin Yes -Necrosis Amt Large (67-100%) -Necrotic Tissue Type Adherent Slough -Structure Exposed N/A -Texture (Meg-wound Skin Appearance) Assessed -Moisture (Meg-wound Skin Appearance) Assessed,Dry/ Scaly -Color (Meg-wound Skin Appearance) Assessed -Temperature (Meg-wound Skin No Abnormality Appearance) (Pt Warm) -Tenderness on Palpation (Mge-wound No Skin Appearance) -Ulcer Cleansing Wound Cleanser -Foul Odor after Cleansing No -Anesthetic Used 5% Lidocaine Gel #16 right senior cluster -Combined with other wound No -Current Size (cm) - Length 0.1 -Current Size (cm) - Width 0.1 -Current Size (cm) - Depth 0.1 -Total Square Cm 0.01 -Photo Taken Yes -Tunneling No -Undermining/Tunneling No -Circular Undermining No -Exudate Amt Small -Exudate Type Serosanguineous -Wound Margin Distinct, Outline Attached -Granulation Amt Medium (34-66%) -Granulation Quality [place] -Slough/Fibrin Yes -Necrosis Amt Large (67-100%) -Necrotic Tissue Type Adherent Slough -Structure Exposed N/A -Texture (Meg-wound Skin Appearance) Assessed -Moisture (Meg-wound Skin Appearance) Assessed -Color (Meg-wound Skin Appearance) Assessed, Hemosiderin Staining -Temperature (Meg-wound Skin No Abnormality Appearance) (Pt Warm) -Ulcer Cleansing Wound Cleanser -Foul Odor after Cleansing No -Anesthetic Used 5% Lidocaine Gel #15 Mid Abdomen -Combined with other wound No -Current Size (cm) - Length 0.8 0.1 -Current Size (cm) - Width 0.4 0.1 -Current Size (cm) - Depth 0.1 0.1 -Total Square Cm 0.32 0.01 -Photo Taken Yes -Tunneling No -Undermining/Tunneling No -Circular Undermining No -Exudate Amt None Present Small -Exudate Type Serosanguineous -Wound Margin Distinct, Distinct, Outline Outline Attached Attached -Granulation Amt Small (1-33%) Medium (34-66%) -Granulation Quality [place] -Slough/Fibrin Yes -Necrosis Amt Small (1-33%) Large (67-100%) -Necrotic Tissue Type Adherent Slough Adherent Slough -Structure Exposed N/A -Texture (Meg-wound Skin Appearance) Assessed, Scarring Scarring -Moisture (Meg-wound Skin Appearance) No Abnormality, Assessed Assessed -Color (Meg-wound Skin Appearance) No Abnormality, Assessed Assessed -Temperature (Meg-wound Skin No Abnormality No Abnormality Appearance) (Pt Warm) (Pt Warm) -Tenderness on Palpation (Meg-wound No No Skin Appearance) -Ulcer Cleansing Rinsed/ Wound Cleanser Irrigated with Saline -Foul Odor after Cleansing No No -Anesthetic Used 5% Lidocaine 5% Lidocaine Gel Gel WC - Nurse 2 - General Ulcer CM Notes Start: 02/10/22 11:02 Freq: Status: Active Protocol: Activity Type Activity Date Activity User E-sign Co-sign Detail Recorded Client Recorded Date Recorded By Document 02/10/22 11:24 MW [id number] 02/10/22 11:51 MW Document 02/17/22 10:59 MW [id number] 02/17/22 11:22 MW 02/10/22 02/17/22 11:24 10:59 Wound Center Nurse 2 #17 left 2nd toe -Time 11:39 10:59 -Correct Patient Yes Yes -Correct Side, Site, Position Yes Yes -Correct Procedure Yes Yes -Procedure Performed Yes No -Type of Procedure Debridement -Clinical Debridement Subcutaneous -Tissue Removed Subcutaneous -Post Debridement (cm) - Length 0.2 0 -Post Debridement (cm) - Width 0.1 0 -Post Debridement (cm) - Depth 0.1 0 -Total Square (Post) (cm) 0.02 0 -Area of Debridement (cm) - Length 0.2 -Area of Debridement (cm) - Width 0.1 -Total Square (Area) (cm) 0.02 -Tunneling No -Undermining/Tunneling No -Circular Undermining No -Wound/Ulcer Outcome Not Healed Healed- Epithelialized -Ulcer Cleansing Rinsed/ Irrigated with Saline -Foul Odor after Cleansing No -Bioengineered Tissue No -Bleeding Controlled with Pressure -Treatment Response Procedure Tolerated Well -Offloading No -Debridement - Subq, 1st 20sq cm No #16 right senior cluster -Time 11:28 11:04 -Correct Patient Yes Yes -Correct Side, Site, Position Yes Yes -Correct Procedure Yes Yes -Procedure Performed Yes No -Type of Procedure Debridement -Clinical Debridement Subcutaneous -Tissue Removed Subcutaneous -Post Debridement (cm) - Length 0.7 0 -Post Debridement (cm) - Width 1.0 0 -Post Debridement (cm) - Depth 0.1 0 -Total Square (Post) (cm) 0.70 0 -Area of Debridement (cm) - Length 0.7 -Area of Debridement (cm) - Width 1.0 -Total Square (Area) (cm) 0.70 -Tunneling No -Undermining/Tunneling No -Circular Undermining No -Wound/Ulcer Outcome Not Healed Healed- Epithelialized -Ulcer Cleansing Rinsed/ Irrigated with Saline -Foul Odor after Cleansing No -Bioengineered Tissue No -Bleeding Controlled with Pressure -Treatment Response Procedure Tolerated Well -Offloading No -Debridement - Subq, 1st 20sq cm No #14 left buttock -Time 11:49 11:03 -Correct Patient Yes Yes -Correct Side, Site, Position Yes Yes -Correct Procedure Yes Yes -Procedure Performed No No -Post Debridement (cm) - Length 0.1 0 -Post Debridement (cm) - Width 0.1 0 -Post Debridement (cm) - Depth 0.1 0 -Total Square (Post) (cm) 0.01 0 -Wound/Ulcer Outcome Not Healed Healed- Epithelialized #15 Mid Abdomen -Time 11:24 11:02 -Correct Patient Yes Yes -Correct Side, Site, Position Yes Yes -Correct Procedure Yes Yes -Procedure Performed Yes Yes -Type of Procedure Debridement Debridement -Clinical Debridement Subcutaneous Subcutaneous -Tissue Removed Subcutaneous Subcutaneous -Post Debridement (cm) - Length 0.7 0.2 -Post Debridement (cm) - Width 0.4 0.1 -Post Debridement (cm) - Depth 0.1 0.1 -Total Square (Post) (cm) 0.28 0.02 -Area of Debridement (cm) - Length 0.7 0.2 -Area of Debridement (cm) - Width 0.4 0.1 -Total Square (Area) (cm) 0.28 0.02 -Tunneling No No -Undermining/Tunneling No No -Circular Undermining No No -Wound/Ulcer Outcome Not Healed Not Healed -Ulcer Cleansing Rinsed/ Rinsed/ Irrigated with Irrigated with Saline Saline -Foul Odor after Cleansing No No -Bioengineered Tissue No No -Bleeding Controlled with Pressure Pressure -Treatment Response Procedure Procedure Tolerated Well Tolerated Well -Offloading No No -Debridement - Subq, 1st 20sq cm Yes Yes Pain Scale: 0-10 Numeric Is Patient Pain Free? Yes Yes WC - Nurse 3 - General Ulcer D/C NN Start: 02/10/22 11:02 Freq: Status: Active Protocol: Activity Type Activity Date Activity User E-sign Co-sign Detail Recorded Client Recorded Date Recorded By Document 02/10/22 12:04 AK [id number] 02/10/22 12:06 AK Document 02/17/22 11:28 ML [id number] 02/17/22 11:28 ML 02/10/22 02/17/22 12:04 11:28 Wound Care Nurse 3 #17 left 2nd toe -Ulcer Cleansing Rinsed/ Irrigated with Saline -Foul Odor after Cleansing No -Negative Pressure Wound Therapy N/A -Primary Dressing Applied C Hydrogel ($) -Primary Dressing Covered/Secured with Dry Gauze #16 right senior cluster -Other Dressing hydrogel -Primary Dressing Covered/Secured with Dry Gauze, Secured with Tape #14 left buttock -Ulcer Cleansing Rinsed/ Irrigated with Saline -Foul Odor after Cleansing No -Negative Pressure Wound Therapy N/A -Primary Dressing Applied Mepilex Border, Promogran -Mepilex Border 1 -Promogran 1 #15 Mid Abdomen -Ulcer Cleansing Rinsed/ Rinsed/ Irrigated with Irrigated with Saline Saline -Foul Odor after Cleansing No -Negative Pressure Wound Therapy N/A -Primary Dressing Applied Promogran Mepilex Border, Promogran -Primary Dressing Covered/Secured with Dry Gauze, Dry Gauze, Secured with Secured with Tape Tape -Mepilex Border 1 -Promogran 1 1 Pain Scale: 0-10 Numeric Is Patient Pain Free? Yes Yes WC - Visit Discharge Discharge Condition Stable Ambulatory Status Ambulatory, Walker Transportation Private Auto Medication Reconcilliation completed & Yes provided to patient/care provider Clinical Summary of Care Provided Yes Additional Wound Wound debrided: right senior Operative Diagnosis: Healed Additional Wound Wound debrided: left second toe Laterality: Left Operative Diagnosis: healed Additional Wound Wound debrided: left buttock Laterality: Left Operative Diagnosis: healed Assessment/Plan Assessment/Plan (1) Decubitus ulcer of left buttock, stage 2: CODE(S): L89.322 - Pressure ulcer of left buttock, stage 2 (2) Postoperative wound dehiscence: CODE(S): T81.31XA - Disruption of external operation (surgical) wound, not elsewhere classified, initial encounter QUALIFIERS: Encounter type: subsequent encounter Qualified Code(s): T81.31XD - Disruption of external operation (surgical) wound, not elsewhere classified, subsequent encounter (3) Ulcer of abdomen wall with fat layer exposed: CODE(S): L98.492 - Non-pressure chronic ulcer of skin of other sites with fat layer exposed (4) Obesity: CODE(S): E66.9 - Obesity, unspecified QUALIFIERS: Obesity type: unspecified obesity type Obesity classification: adult class 3 (BMI >= 40) Serious obesity comorbidity presence: without serious comorbidity Body mass index: BMI 50.0-59.9 Qualified Code(s): E66.01 - Morbid (severe) obesity due to excess calories; Z68.43 - Body mass index [BMI] 50.0-59.9, adult (5) Open wound of right lower extremity: CODE(S): S81.801A - Unspecified open wound, right lower leg, initial encounter QUALIFIERS: Encounter type: subsequent encounter Qualified Code(s): S81.801D - Unspecified open wound, right lower leg, subsequent encounter (6) Chronic ulcer of left foot with fat layer exposed: CODE(S): L97.522 - Non-pressure chronic ulcer of other part of left foot with fat layer exposed PLAN: Plan Melanie's ulcer of her abdomen is improved. This was evaluated and debrided today. Her right senior was evaluated and is healed. Left second toe ulcer is also healed. Her ulcer of left buttock was evaluated and is healed. She has had labs approx. 2 months ago to evaluate her nutrition and for diabetes which nutrition is adequate and A1C was less than 6.0%. Her abdomen will be treated with promogran and silicone foam bordered dressing changed daily for light drainage and protection. We discussed offloading of the site which she has been doing and we also encouraged increased protein intake, weight loss and proper cleansing of the ulcer to facilitate healing. She was advised to call if there are any increased odor, pain, drainage or erythema. She will return in 2 weeks for wound care.
== END 2022-02-20 23:59 | disposition home or self-care (01) ==
LOC: WC 10:30
PROVIDERS: PCP Family Medicine; Referring Provider Family Medicine; Visit Provider Family Medicine
DX: L89.322 Pressure ulcer of left buttock, stage 2 (principal); Z93.2 Ileostomy status; L97.522 Non-pressure chronic ulcer of other part of left foot with fat layer exposed; L98.492 Non-pressure chronic ulcer of skin of other sites with fat layer exposed; E66.01 Morbid (severe) obesity due to excess calories; Z68.45 Body mass index [BMI] 70 or greater, adult; S81.801D Unspecified open wound, right lower leg, subsequent encounter; W22.8XXD Striking against or struck by other objects, subsequent encounter; T81.31XA Disruption of external operation (surgical) wound, not elsewhere classified, initial encounter; Z79.01 Long term (current) use of anticoagulants; Z79.82 Long term (current) use of aspirin; Z79.899 Other long term (current) drug therapy
CPT/HCPCS: 11042; 73660; 87070; 87075; 87077; 87186; 87205

== ENCOUNTER 2022-02-22 14:30 | Outpatient (RCR) | payer MEDICARE, MEDICAID, SELFPAY ==
--- NOTE | 2021-12-28 16:36 | HP.PTEVAL ---
Patient's Visit Information PUSHPA ORELLANA is a 46 year old F referred to Physical Therapy by Dr. Karly Bose DO with a diagnosis of Abnormal Gait. Date of Evaluation: 12/28/21 Physical Therapist: Meghna Pang DPT - Visit Plan Frequency: 1x/Week Duration: 6 Weeks Plan: Patient was discharged approx 6 weeks ago and has not completed her HEP- re-issues HEP and encouraged movement. - Subjective Patient repots that nothing has changed since she was discharged with the exception of her toes turning to the right with her gait pattern. She does not do her HEP and sits in her bed most of the day. She has had epidural injections and is waiting for approval for injections in bilateral hips. - Objective Posture: FH, RS- can correct with verbal cues but does not maintain. Gait: rollerator- wide LILIANA- 340ft with rollator (SBA) with 3 rest breaks- toes turned out to the right when observed in the clinic. ROM: WFL in all planes. Stairs: asc/desc 8 recip with 2 HR- asc required verbal cues to place full foot on the step- descent poor control. Strength: Core: fair minus Hip: Abd/Add: 4+/5, Flexion: 4+/5, Extn: 4/5, Knee: 4+/5, Right Ankle: 4+/5. Balance: Sitting: good, Standing Static: fair Standing Dynamic: fair minus. Flex: HS: severe, Gastroc: severe. - Balance/Special Test Scores Lower Extremity Functional Score: 10 - Goals Goal 1:: Patient will be I with HEP and progression Goal Time Frame: 4-6 Weeks - Rehabilitation Potential Physical Therapy Diagnosis: Patient presents with hypomobility- she has decrease endurance and strength due to poor compliance with HEP and movement at home. Rehabilitation Potential: Fair - Anticipated Interventions Therapeutic Exercise to Include: Strength training Thank you for the opportunity to evaluate your patient. For Medicare and Medicare HMO plans, please review the plan of care and approve it. It will need to be FAXED BACK to us at [phone] for Medicare purposes. For Medicare only, by signing this I certify the plan of care. Please let me know if there are questions or concerns regarding this plan of care. Physician Signature: Date:
--- NOTE | 2022-02-22 15:32 | HP.PTDCSUM ---
It has been my pleasure to treat PUSHPA ORELLANA referred by Dr. Karly Bose DO, with the diagnosis of Abnormal Gait for a total of 5 visit(s). Discharge Date: Please see the following information for a summary of their discharge status. Subjective: Patient reports that she has been struggling at home. She has significant hip and back pain- worst: 6/10 best:2/10. She is moving more- she reports that is moving every 2 hours (move her arms or pick something up off the floor). She has been trying to get on/off the mower and take the recycling out. She feels like its getting easier to move. She is still going to the wound clinic- Dr. Bose. She plans to continue to help her mom with housework. She still has issues with her feet turning. LB and hips bilat Pain Intensity (Out of 10): 4 % Improvement: 50 Objective/Function: Posture: FH, RS- can correct with verbal cues but does not maintain. Gait: rollerator- wide LILIANA- 340ft with rollator with 0 rest breaks ROM: WFL in all planes. Stairs: asc/desc 8 recip with 2 HR- asc required verbal cues to place full foot on the step- descent poor control. Strength: Core: fair minus Hip: Abd/Add: 4+/5, Flexion: 4+/5, Extn: 4/5, Knee: 4+/5, Right Ankle: 4+/5. Balance: Sitting: good, Standing Static: fair Standing Dynamic: fair minus. Flex: HS: severe, Gastroc: severe. Goal 1:: Patient will be I with HEP and progression Goal Progress: Goal Met Plan: 02/22/22: Discharge to I HEP. Patient was discharged approx 6 weeks ago and has not completed her HEP- re-issues HEP and encouraged movement. If there are questions or concerns regarding this patient's physical therapy, please feel free to call me at [phone]. Thank you for the referral of this patient. Sincerely, Meghna Pang, DPT Balance/Gait/Functional tests - Balance/Special Test Scores Lower Extremity Functional Score: 60 TUG Test Time Seconds: 15 Tug Test: <20 sec.=mostly independent
== END 2022-02-22 19:00 | disposition home or self-care (01) ==
LOC: PT 14:30
PROVIDERS: PCP Family Medicine; Referring Provider Family Medicine; Visit Provider Family Medicine
DX: M16.0 Bilateral primary osteoarthritis of hip (principal); M51.36 Other intervertebral disc degeneration, lumbar region
CPT/HCPCS: 97110; 97161; 97164; 97166

== ENCOUNTER 2022-03-07 13:37 | Day surgery (SDC) | payer MEDICARE, MEDICAID, SELFPAY ==
[2022-03-07] MEDS: Lactated Ringers 1,000 ML 15 ML IV (14:05)
[2022-03-07 14:16] LABS: Prothrombin Time Fingerstick 23.2 SEC (11.7-14.9)
[2022-03-07 14:19] VITALS: BP 119/64; PULSE 90; RESP 16; TEMP 36.4; O2SAT 96; BMI 52.7
--- NOTE | 2022-03-07 15:26 | PCM.HP.BLA ---
History and Physical Date of Admission: 03/07/22 KALYAN ORELLANA, is a 46 F who presents to the office today for Follow up. Melanie established with this clinic 09.29.21 with referral from PCP for evaluation of loose stools with blood and intermittent abdominal pain/cramping and white plaques on stoma. 10.21.2020 she presented to [facility] ED with diverticular abscess requiring transfer to [facility] for LLQ abd pain with fever to treat abscess due to size ([id number]) and location of abscess. December 2020 she underwent total colectomy with all large bowel removed, rectum remains to address severe diverticular disease with abscess. While hospitalized there was concern for Crohn?s disease and was treated for this for a short time just prior to colectomy. Colonic biopsy inconclusive of Crohn?s disease. Presented to [facility] ED 04.11.21 and 07.04.21 for bleeding from her stoma. [facility] ED presentation 07.04.21 for blood seen in ileostomy and abdominal/stomal pain. Hemoglobin was improved since previous reading at 11.5. Recommended stopping coumadin as DVT and PE were remotely diagnosed and bleeding is located at noncompressible site. She continues to have diarrhea with intermittent blood through her ileostomy with pain through her right abdomen. Lomotil QID which she finds helpful in controlling stools, but continues to have pain. Immodium previously utilized but ineffective. Unsure is she has a family history of bowel disease or similar symptoms. Acute GIB many years ago following colonoscopy with biopsy where she required admission with blood transfusion. PMH C.Difficile; Hx PE and DVT with anticoagulation use; JOSEPH; osteoarthritis; fibromyalgia with chronic fatigue; left hip pain with bone/bone joint. CT abd/pel 10.21.20 finding large multioculated fluid and air collection of left med and lower quadrant with surrounding inflammatory changes closely associated to descending colon with diverticulosis. CT abd/pel 04.11.21 finding subtotal colectomy with end ileostomy and VIEIRA pouch. No acute or chronic findings. Biochemical workup CMP, LDH, CBC, JULIETA comp, ANCA, celiac, IgG/A, SHARMIN ESR H33, CRP H18.00, IgM H315, IgE L5 Stool Lactoferrin positive. calprotectin, ova/parasite, C.Difficile, giardia without abnormalities. Enteric pathogen not ordered as cost will be over $600. Plan last visit 09.29.21: Diarrhea ? biochemical workup and stool testing. Continues to have loose stools through her stoma, will sometimes be formed and will sometimes be loose can be dependent on the foods she eats; there is blood but only because of stomal irritation r/t poor wafer placement. Intermittent abdominal pain several inches to the right of her stoma. ROS Const Constitutional: No fatigue, malaise, night sweats, weight change, sleep problems, abnormal sleep pattern or change in appetite ENT ENT: No difficulty swallowing, hoarseness or sore throat Cardio Cardiology: No chest pain at rest Gastro GI: No belching, bloating, change in bowel habits, change in stool character, coffee ground emesis, constipation, cramping, heartburn, difficulty swallowing, feeling full early, excessive flatus, incontinent of stools, Vomiting blood/hematemesis, Blood in stool, loose stools, Black,tarry stools, nausea/dyspepsia, pain with swallowing, vomiting or other Musc Musculoskeletal: No joint pain Skin Skin: No yellowing of the eye or itchy eyes Neuro Neurology: No behavioral changes Psych Psychiatric: No abnormal sleep pattern, No anxiety, No behavioral changes, No change in appetite and No depression Endo Endocrine: No fatigue or weight change Aller/Imm Allergy/Immunologic: No itchy eyes Jasvir/Lymp Hematologic/Lymphatic: No easy bleeding or easy bruising Exam Const General: cooperative and comfortable Nutritional Appearance: average body habitus and well nourished [facility] Head: normal to inspection Ears: hearing grossly normal bilaterally Nose: external nose normal Face and sinus: normal facial exam Mouth: oral mucosae normal Throat: posterior oropharynx normal Eyes General: appearance normal, both eyes and all related structures Neck Neck: normal visual inspection Chest Chest palpation & inspection: normal inspection of the chest and normal palpation of entire chest wall Resp Effort & Inspection: normal respiratory effort Auscultation: Bilateral: Clear to Auscultation Cardio Palpation: normal PMI Rate: regular rate Rhythm: regular rhythm GI Inspection: normal to inspection and other (normal appearing ileostomy) Auscultation: normal bowel sounds Percussion: normal to percussion Palpation: no hepatosplenomegaly Skin General: no rashes or lesions noted Neuro General: patient alert Extrem General: normal to inspection Psych Affect: normal affect Quality Reporting Tobacco Screening ([facility] 138) Smoking Status: Never smoker Assessment and Plan Assessment and Plan (1) Diarrhea: ?Status:?Chronic ?Plan: She is still high output from her ileostomy.? The differential diagnosis for this would be Crohn's disease, infection, medication, growth.? I do not see any signs of bleeding that would lead to high output daily.? I am not going to put her on high-dose PPI or any variation of octreotide now.? I am recommending capsule endoscopy for evaluation of her small bowel along with inflammatory bowel disease testing (2) Anal fistula: ?Status:?Chronic I have examined the patient and the H&P has been reviewed. There are no clinical changes since date of exam.
[2022-03-07 15:54] VITALS: BP 119/64; BP 98/81; PULSE 103; RESP 18; TEMP 36.3; O2SAT 96
[2022-03-07 15:55] VITALS: BP 119/64; BP 119/77; PULSE 102; RESP 18; O2SAT 96
[2022-03-07 16:01] VITALS: BP 119/64; BP 126/70; PULSE 99; RESP 18; O2SAT 96
--- NOTE | 2022-03-07 16:01 | OP.EGD_ITS ---
Patient Name: Melanie Carter Procedure Date: 03/07/2022 3:17 PM Date of : 1975 Age: 46 Procedure: Upper GI endoscopy Indications: Suspected upper gastrointestinal bleeding Providers: Rene Sandhu DO Medicines: Monitored Anesthesia Care Patient Profile: This is a 46 year old female. Refer to note in patient chart for documentation of history and physical. Patient has symptoms of chronic abdominal cramping and chronic epigastric abdominal pain. Complications: No immediate complications. Procedure: Pre-Anesthesia Assessment: - Prior to the procedure, a History and Physical was performed, and patient medications and allergies were reviewed. The patient is competent. The risks and benefits of the procedure and the sedation options and risks were discussed with the patient. All questions were answered and informed consent was obtained. Patient identification and proposed procedure were verified by the physician in the pre-procedure area. Mental Status Examination: alert and oriented. Airway Examination: normal oropharyngeal airway and neck mobility. Respiratory Examination: clear to auscultation. CV Examination: normal. Prophylactic Antibiotics: The patient does not require prophylactic antibiotics. Prior Anticoagulants: The patient has taken no previous anticoagulant or antiplatelet agents. ASA Grade Assessment: III - A patient with severe systemic disease. After reviewing the risks and benefits, the patient was deemed in satisfactory condition to undergo the procedure. The anesthesia plan was to use monitored anesthesia care (MAC). Immediately prior to administration of medications, the patient was re-assessed for adequacy to receive sedatives. The heart rate, respiratory rate, oxygen saturations, blood pressure, adequacy of pulmonary ventilation, and response to care were monitored throughout the procedure. The physical status of the patient was re-assessed after the procedure. After obtaining informed consent, the endoscope was passed under direct vision. Throughout the procedure, the patient's blood pressure, pulse, and oxygen saturations were monitored continuously. The Endoscope was introduced through the mouth, and advanced to the second part of duodenum. The upper GI endoscopy was accomplished without difficulty. The patient tolerated the procedure well. Scope In: 3:33:30 PM Scope Out: 3:42:24 PM Total Procedure Duration Time 0 hours 8 minutes 54 seconds Findings: Grade I varices were found in the lower third of the esophagus. They were 5 mm in largest diameter. A small hiatal hernia was present. Mild portal hypertensive gastropathy was found in the gastric body. Biopsies were taken with a cold forceps for histology. Grade III and large (> 5 mm) varices were found in the first portion of the duodenum and in the second portion of the duodenum. They were 8 mm in largest diameter. Impression: - Grade I esophageal varices. - Small hiatal hernia. - Portal hypertensive gastropathy. Biopsied. 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 Recommendation: - Resume previous diet. - Continue present medications. Procedure Code(s): --- Professional --- 73160, Esophagogastroduodenoscopy, flexible, transoral; with biopsy, single or multiple CPT copyright 2017 [employer]. All rights reserved. The codes documented in this report are preliminary and upon project geophysicist review may be revised to meet current compliance requirements. Rene Sandhu DO 03/07/2022 4:01:01 PM This report has been signed electronically. Number of Addenda: 0 Note Initiated On: 03/07/2022 3:17 PM
--- NOTE | 2022-03-07 16:03 | OP.CCLET_ITS ---
03/07/2022 Karly Bose [address] [facility] [place] [address] [place] [address] Re : Upper GI endoscopy procedure for Melanie Carter Dear Dr. Bose This procedure was performed on Monday, March 07, 2022. My impressions and recommendations are as follows: Impressions : - Grade I esophageal varices. - Small hiatal hernia. - Portal hypertensive gastropathy. Biopsied. 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 Recommendations : - Resume previous diet. - Continue present medications. My findings are described in the full procedure note, which is enclosed. If I can be of further assistance, please feel free to contact me at . Sincerely, Rene Sandhu, 03/07/2022 4:01:01 PM This report has been signed electronically.
[2022-03-07 16:04] VITALS: BP 119/64; BP 127/78; PULSE 100; RESP 18; TEMP 37.2; O2SAT 98
[2022-03-07 16:34] VITALS: BP 119/64
== END 2022-03-07 17:00 | disposition home or self-care (01) ==
LOC: EN 13:38 → AC 13:41
PROVIDERS: PCP Family Medicine; Referring Provider Family Medicine; Visit Provider Internal Medicine Gastroenterology
PROC: 0DJ08ZZ Inspection of Upper Intestinal Tract, Via Natural or Artificial Opening Endoscopic (ICD-10-PCS; CPT 43235; principal; 2022-03-07 14:55)
DX: I85.00 Esophageal varices without bleeding (principal); K76.6 Portal hypertension; Z93.2 Ileostomy status; K31.89 Other diseases of stomach and duodenum; K44.9 Diaphragmatic hernia without obstruction or gangrene; R19.7 Diarrhea, unspecified; K60.3 Anal fistula; K21.9 Gastro-esophageal reflux disease without esophagitis; G47.33 Obstructive sleep apnea (adult) (pediatric); Z79.01 Long term (current) use of anticoagulants; Z79.82 Long term (current) use of aspirin; Z79.899 Other long term (current) drug therapy; Z86.718 Personal history of other venous thrombosis and embolism; Z86.711 Personal history of pulmonary embolism
CPT/HCPCS: 43239; 36416; 85610; J7120; J2405

== ENCOUNTER → 2022-03-23 | Outpatient (CLI) | payer MEDICARE, MEDICAID, SELFPAY ==
--- NOTE | 2022-03-23 08:39 | US_ITS ---
STUDY: ABDOMINAL ULTRASOUND - ELASTOGRAPHY REASON FOR VISIT: Female, 46 years old. Fatty infiltration of the liver. TECHNIQUE: Liver stiffness measurements were obtained on a [employer] RS 85 ultrasound machine using a CA 1-7 probe following the SRU guidelines. 3 measurements were obtained using a 2-D-SWE method. The IQR/M was 24% suggesting a quality data set. TECHNICAL QUALITY: Adequate. COMPARISON: Comparison is made with prior study done earlier in the day. FINDINGS: Liver: Fatty infiltration of the liver. Median liver stiffness measured 7.3 kPa. US/Elastography Parenchyma/Organ IMPRESSION: Liver stiffness measures 7.3 kPa compatible with F2-F3 (Mild to moderate liver fibrosis) Metavir score. Electronically Signed: Pool Gayle MD at 10:15 EST ,
--- NOTE | 2022-03-23 08:39 | US_ITS ---
STUDY: ABDOMINAL ULTRASOUND - RIGHT UPPER QUADRANT REASON FOR VISIT: Female, 46 years old . Suspected liver disease. TECHNIQUE: Ultrasound evaluation of the right upper quadrant was performed with real-time and static bhagat-scale imaging. TECHNICAL QUALITY: Adequate. COMPARISON: None. FINDINGS: Liver: The liver measures 16.8 cm. There is increased echogenicity consistent with fatty infiltration. The bile ducts are within normal limits. There is hepatic color flow. The direction of portal flow is hepatopetal. There is no demonstrated mass lesion. Gallbladder: Normal distended gallbladder. The gallbladder wall measures 1.7 mm. There is a negative sonographic Wilson''s sign. There is no pericholecystic fluid. There are multiple echogenic structures within the gallbladder, consistent with multiple small gallstones. Sludge is seen within the gallbladder lumen. Common Bile Duct (C.B.D.): The common bile duct measures 4.6 mm. Pancreas: Normal size of the head, body and tail of the pancreas. There is increased echogenicity of the pancreas. There is no demonstrated pancreatic mass or cyst. Right Kidney: Normal size of the right kidney. The right kidney measures 10.7 cm x 6.3 cm x 4.3 cm. Normal renal cortex. The right cortex measures 1.1 cm. There is no demonstrated renal mass or cyst. There is no right hydronephrosis. There is a 1 cm x 1 cm x 0.6 cm intrarenal calculus in the mid pole calyx of the right kidney. US/Abdomen Limited IMPRESSION: Fatty infiltration of the liver. Multiple gallstones as well as sludge in the gallbladder lumen. Nonobstructive right intrarenal calculus. Electronically Signed: Pool Gayle MD at 10:14 EST ,
== END | disposition home or self-care (01) ==
LOC: US 08:38
PROVIDERS: PCP Family Medicine; Visit Provider Internal Medicine Gastroenterology
DX: K76.0 Fatty (change of) liver, not elsewhere classified (principal)
CPT/HCPCS: 76705; 76981

== ENCOUNTER → 2022-04-03 | Outpatient (CLI) | payer MEDICARE, MEDICAID, SELFPAY ==
[2022-04-03] VITALS (9 sets, daily range): BP systolic 100–144; BP diastolic 43–74; PULSE 98–110; RESP 16–34; TEMP 36.6; O2SAT 94–100; BMI 52.7
--- NOTE | 2022-04-03 | LIV_PTH ---
PATIENT: PUSHPA ORELLANA LOC: [place] U#:[id number] AGE/SX: 46/F ROOM: RE04/03/[address]: Dr. Rene Sandhu DO : 1975 BED: DIS: 04/03/2022 SPEC #: [id number] RECD: 04/03/22 11:49 STATUS: TAMARA REQ #: [id number] TYSHAWN: 04/03/22 00:[address]: Rene Sandhu DEPT: SURGICAL PATHOLOGY RECD BY: Chinmay Navarrete ENTERED: 04/03/22 11:49 SP TYPE: LIVER RES OTHR DR: Dr. Karly Bose DO Tissues: Liver, NOS Procedures: PAS with Diastase (control) Trichrome (control) Special Stain Group II PAS Stain (control) Surgery Specimen Level V Retic (control) Iron Stain (control) HEADER OPERATION: CT-guided liver biopsy PRE-OP DIAGNOSIS: Liver disease TISSUE SUBMITTED: Liver 18-gauge core x3 MICROSCOPIC DIAGNOSIS Liver, CT-guided core biopsy: Macrovesicular and microvesicular steatohepatitis and fibrosis. No evidence of cirrhosis. See comment. AM:guilherme 04/04/2022 COMMENT Sections show focal portal inflammation with minimal lobular inflammation (grade 1-2). Trichrome stain is negative for cirrhosis but shows portal fibrosis expansion with minimal periportal and lobular extension (stage 1-2). Iron stain does not reveal intraparenchymal deposition of iron. Reticulin stain reveals a normal hepatic parenchymal architecture. PAS and PASD stains do not reveal accumulation of abnormal proteins. All matched controls are appropriate. Clinical correlation is suggested. Modified Knodell scoring system for chronic hepatitis was used in the evaluation of this case. Case has been reviewed in consultation with Dr. Guardado who concurs with the above diagnosis. IDC:MARIE MICROSCOPIC DESCRIPTION Slides are reviewed. GROSS DESCRIPTION Received in fixative is one container labeled with the patient's name and designated liver, CT-guided biopsy. The specimen consists of three elongated fragments of henson soft tissue each measuring 2 cm in length and 0.1 cm in diameter. The specimen is totally submitted in one cassette. / SJ:rg 04/03/2022 TC:3 [facility]: [id number], [id number] x5 ADDENDUM ADDENDUM ADDENDUM ADDENDUM ADDENDUM ADDENDUM ADDENDUM ADDENDUM ADDENDUM ADDENDUM ADDENDUM ADDENDUM 08/23/2022 12:07 ADDENDUM 08/23/2022 12:07 ADDENDUM 08/23/2022 12:07 ADDENDUM 08/23/2022 12:07 ADDENDUM 08/23/2022 12:07 This addendum is added to incorporate an outside pathology consultation report. The case was examined at [facility] (#[id number]) and the following diagnosis was rendered. Liver, CT-guided core biopsy: Steatohepatitis with patchy perisinusoidal and periportal fibrosis, negative for cirrhosis. Hepatic parenchyma subtle architectural abnormalities and regenerative changes. Please see complete above mentioned consultation report in EMR
--- NOTE | 2022-04-03 08:55 | CT_ITS ---
PROCEDURE: CT DIRECTED CORE LIVER BIOPSY INDICATION: Female, 46 years old. LIVER DISEASE STAGING PHYSICIAN: Dr. JESSICA Arechiga CONSENT: Written informed consent was obtained having explained the risks, benefits and alternatives in detail with the patient who accepted the risks and agreed to proceed. Laboratory review and clinical assessment was performed. CONSCIOUS SEDATION PROTOCOL: The Drugs used were: 2 mg Versed, IV., and 50 mcg Fentanyl, IV. The sedation time was: 20 minutes. Conscious sedation was started at 10:11 AM and terminated at 10:31 AM. The conscious sedation protocol was independently monitored. RADIATION DOSAGE (If Supplied By Facility): CTDIvol = ( 24.5 ) mGy, DLP = ( 660.67 ) mGycm Individualized dose optimization techniques were used for this CT. TECHNIQUE: Using CT image guidance with image documentation, a suitable location in the right lobe of the liver was identified. Using an anterior approach, puncture of the liver was uneventful with an 18-gauge core needle system. 3, 18-gauge core samples were obtained, and submitted in formalin to the pathologist for further assessment. Followup CT scan revealed no distinct sequelae. CT/Biopsy/Inj or Needle Placement IMPRESSION: 1. CT directed core needle biopsy of the liver, using CT image guidance with image documentation as described. 2. Conscious Sedation protocol utilized with independent monitoring. Electronically Signed: Pool Gayle MD at 11:22 [facility] ,
[2022-04-03 09:14] LABS: Erythrocyte Sedimentation Rate 68 mm/hr (0-30)
[2022-04-03 09:15] LABS: Absolute Lymphocyte Count 1.02 X10^3/uL (0.83-4.51); Absolute Neutrophil Count 4.3 X10^3/uL (2.0-7.7); Basophil# 0.04 X10^3/uL; Basophil% 0.7 % (0-1); Eosinophil# 0.08 X10^3/uL; Eosinophils% 1.4 % (0-5); Hematocrit 33.6 % (37-47); Hemoglobin 10.6 g/dL (12.0-15.0); Lymphocyte # 1.02 X10^3/ul (0.83-4.51); Lymphocyte % 17.2 % (19-41); Mean Corp Hgb Conc 31.5 g/dL (32-36); Mean Corpuscular Hgb 29.9 pg (27.0-32.0); Mean Corpuscular Volume 94.9 fL (81-99); Mean Platelet Vol. 10.9 fl (6.2-12.0); Monocyte# 0.43 X10^3/uL; Monocyte% 7.3 % (0-10); NRBC Flagged by Analyzer 0 % (0-5); Neutrophil % 72.6 % (47-70); Platelet Count 170 K/mm3 (150-450); RBC Distribution Width CV 14.5 % (11.6-14.6); RBC Distribution Width SD 50.5 fl (35.1-43.9); Red Blood Count 3.54 M/mm3 (4.2-5.4); White Blood Count 5.9 K/mm3 (4.4-11.0)
[2022-04-03 09:21] LABS: International Normalized Ratio 1.3; Prothrombin Time (Protime)PT. 15.5 SECONDS (11.7-14.9)
[2022-04-03 09:23] LABS: Partial Thromboplast Time 29.3 Seconds (24.1-36.2)
[2022-04-03 09:34] LABS: ALB/GLOB Ratio 0.8 RATIO (0.9-2.4); AST(SGOT) 10 U/L (15-37); Alanine Aminotransfer ALT/SGPT 43 U/L (13-56); Albumin, Serum 3.3 g/dL (3.2-5.0); Alkaline Phosphatase 98 U/L (45-117); Anion Gap 4 (5-15); BUN 17 mg/dL (7-18); BUN/Creat Ratio 15.7 RATIO (10-20); Chloride 109 mmol/L (98-107); Creatinine, Serum 1.08 mg/dL (0.55-1.02); EST Glomerular Filtration Rate 58 mL/min (>60); Est Glom Filt Rate - Afr Amer 70 mL/min (>60); Ferritin 41 ng/mL (8-252); Glucose 107 mg/dL (74-106); LDH 181 U/L (84-246); Protein, Total 7.3 g/dL (6.4-8.2); Sodium Level 140 mmol/L (136-145)
[2022-04-03] MEDS: fentaNYL 100 MCG/2 ML Ampul IV (10:11)
[2022-04-03] MEDS: Midazolam 2 MG/2 ML Syringe IV (10:14)
[2022-04-03 10:16] LABS: HIV - WCH Non-Reactive (Nonreactive)
[2022-04-03] MEDS: Lidocaine 1% (20 ml mdv) 20 ML Vial INFILT (10:52)
[2022-04-06 08:09] LABS: Angiotensin Convert Enzyme 64 U/L (14-82); Ceruloplasmin 29.5 mg/dL (19.0-39.0); Immunoglobulin A 192 mg/dL (87-352); Immunoglobulin E 4 IU/mL (6-495); Immunoglobulin G 1104 mg/dL (586-1602); Immunoglobulin M 425 mg/dL (26-217)
[2022-04-06 10:24] LABS: Anti-Mitochondrial AB <20.0 Units (0.0-20.0)
[2022-04-06 10:36] LABS: Anti-Smooth Muscle ABS 15 Units (0-19); Copper, Serum or Plasma 104 ug/dL (80-158); Haptoglobin 205 mg/dL (42-296)
== END | disposition home or self-care (01) ==
PROVIDERS: PCP Family Medicine; Referring Provider Internal Medicine Gastroenterology; Visit Provider Internal Medicine Gastroenterology
DX: K76.9 Liver disease, unspecified (principal); R19.7 Diarrhea, unspecified
CPT/HCPCS: 47000; 36415; 77012; 80053; 82140; 82164; 82390; 82525; 82728; 82784; 82785; 83010; 83516; 83615; 85025; 85610; 85652; 85730; 86140; 86703; 88307; 88313; 99156; J7050

== ENCOUNTER 2022-04-21 11:30 | Outpatient (RCR) | payer MEDICARE, MEDICAID, SELFPAY ==
[2022-02-21 00:27] VITALS: BP 111/57; PULSE 115; RESP 18; TEMP 36.1; BMI 112.3
[2022-03-24 11:01] VITALS: BP 124/86; PULSE 122; RESP 18; TEMP 36.3; BMI 112.3
--- NOTE | 2022-03-24 14:35 | PN.PCM_ITS ---
History of Present Illness Date of Service: 03/24/22 Chief Complaint: non-healing ulcer of left buttock, abdomen, right senior History of Wound: This is a 46-year-old morbidly obese female who presents today for treatment of a nonhealing ulcer of her left buttock at the site of a previous fistula. The area started draining in September and continues to drain serosanguinous fluid light to moderate drainage intermittently. She has been tolerating treatment with Inez packed into the fistula tract. She has been on and off antibiotic treatment for it. She has an ileostomy so there is no stool contamination to the area. She has not been able to change dressings regularly. She is on chronic anticoagulation with warfarin and is obese. She has no odor, erythema or other signs of infection. Subjective Subjective Melanie returns today for follow up of nonhealing ulcer of her left buttock. The ulcer on her left buttock is healed. She denies fever, chills, erythema, odor. The ulcer to her abdomen at her incision site is healed. The wound to her right senior and her left second toe are healed. Objective Data Objective Data Vital Signs: Vital Signs Temp Pulse Resp BP O2 Del Method 97.4 F L 122 H 18 124/86 H Room Air 03/24/22 11:01 03/24/22 11:01 03/24/22 11:01 03/24/22 11:01 03/24/22 11:01 Oxygen Delivery Method Room Air Weight: 335 kg Body Mass Index (BMI) 112.3 Physical Exam Const alert, oriented x3 and no apparent distress General Appearance: cooperative and comfortable HEENT normocephalic and head/scalp atraumatic Resp normal respiratory effort Effort and Inspection: able to speak in complete sentences Cardio regular rate and regular rhythm Skin Wounds: wounds noted Wound Narrative: as in clinical panel Psych mental status grossly normal, thought process normal, cooperative and affect normal Debridement Note Debridement Note Wound debrided: abdomen Laterality: Not Applicable Tissue Removed: yellow slough, devitalized tissue No debridement was completed: No debridement was completed today Post-Debridement Measurements and Additional Note: Post-Debridement Measurements/Treatment CIARRA - Nurse 1 - General Ulcer Assessment Start: 03/24/22 11:01 Freq: Status: Active Protocol: NILTON Activity Type Activity Date Activity User E-sign Co-sign Detail Recorded Client Recorded Date Recorded By Document 03/24/22 11:01 [facility] [id number] 03/24/22 11:09 [facility] 03/24/22 11:01 WC - Today's Visit Information Type of service Follow-up Visit (Physician/PEDIATRIC GENETICIST ) Arrival Mode Ambulatory Transfer Assistance None Patient Identification Verified (Name & Yes ) Patient Requires Transmission-Based No Precautions Height and Weight Body Mass Index (BMI) 112.3 BMI Classification Obese Vital Signs Temperature (97.8 F-99.1 F) 97.4 F L Temperature Source Temporal Pulse Rate (60-100) 122 H Pulse Location Monitor Respiratory Rate (12-18) 18 Respiratory rate source Observation Oxygen Delivery Method Room Air Blood Pressure (90/60-120/80) 124/86 H Blood Pressure Mean (mm Hg) 98 Source Monitor Position Sitting Blood Pressure Location Left Arm History Since Last Visit- (Skip if this is Patient's initial visit) Have you changed medications since your No last visit? Any new allergies or adverse reactions No Had a fall/change in ADL's that may No increase risk of falls Signs or symptoms of abuse and/or No neglect since last visit Have you been in the hospital since your No last visit? Has dressing in place as prescribed Yes Has compression in place as prescribed N/A Has offloadiing in place as prescribed N/A Experienced any changes in pain level or No management Left Footwear Regular Shoe Right Footwear Regular Shoe Pain Scale: 0-10 Numeric Is Patient Pain Free? Yes - Nurse 1 - General Ulcer Measurement Start: 03/24/22 11:01 Freq: Status: Active Protocol: Activity Type Activity Date Activity User E-sign Co-sign Detail Recorded Client Recorded Date Recorded By Document 03/24/22 11:01 [facility] [id number] 03/24/22 11:09 [facility] 03/24/22 11:01 Wound Center Nurse 1 #15 Mid Abdomen -Combined with other wound No -Current Size (cm) - Length 0 -Current Size (cm) - Width 0 -Current Size (cm) - Depth 0 -Total Square Cm 0 -Date of Last Picture (Recall this 03/24/22 field) -Photo Taken Yes -Epithelialization Large 67-100% -Texture (Meg-wound Skin Appearance) Assessed, Scarring -Moisture (Meg-wound Skin Appearance) Assessed -Color (Meg-wound Skin Appearance) Assessed -Temperature (Meg-wound Skin No Abnormality Appearance) (Pt Warm) -Tenderness on Palpation (Meg-wound No Skin Appearance) #14 left buttock -Wound Comment(s) DR TO ASSESS WC - Nurse 2 - General Ulcer CM Notes Start: 03/24/22 11:01 Freq: Status: Active Protocol: Activity Type Activity Date Activity User E-sign Co-sign Detail Recorded Client Recorded Date Recorded By Document 03/24/22 11:17 MW [id number] 03/24/22 11:20 MW 03/24/22 11:17 Wound Center Nurse 2 #15 Mid Abdomen -Time 11:17 -Correct Patient Yes -Correct Side, Site, Position Yes -Correct Procedure Yes -Procedure Performed No -Post Debridement (cm) - Length 0 -Post Debridement (cm) - Width 0 -Total Square (Post) (cm) 0 -Wound/Ulcer Outcome Healed- Epithelialized #14 left buttock -Time 11:17 -Correct Patient Yes -Correct Side, Site, Position Yes -Correct Procedure Yes -Procedure Performed No -Post Debridement (cm) - Length 0 -Post Debridement (cm) - Width 0 -Post Debridement (cm) - Depth 0 -Total Square (Post) (cm) 0 -Wound/Ulcer Outcome Healed- Epithelialized Pain Scale: 0-10 Numeric Is Patient Pain Free? Yes WC - Nurse 3 - General Ulcer D/C NN Start: 03/24/22 11:01 Freq: Status: Active Protocol: Activity Type Activity Date Activity User E-sign Co-sign Detail Recorded Client Recorded Date Recorded By Document 03/24/22 11:20 MW [id number] 03/24/22 11:20 MW 03/24/22 11:20 Wound Care Nurse 3 Treatment Response Procedure Tolerated Well Pain Scale: 0-10 Numeric Is Patient Pain Free? Yes Teaching: Wound Center Discharge Instructions -Person Taught Patient -Teaching Method Discussion -Response to teaching Verbalize understanding WC - Visit Discharge Discharge Condition Stable Ambulatory Status Ambulatory, Walker Transportation Private Auto Accompanied by self Medication Reconcilliation completed & No provided to patient/care provider Clinical Summary of Care Provided Yes Additional Wound Wound debrided: right senior Operative Diagnosis: Healed Additional Wound Wound debrided: left second toe Laterality: Left Operative Diagnosis: healed Additional Wound Wound debrided: left buttock Laterality: Left Operative Diagnosis: healed Assessment/Plan Assessment/Plan (1) Decubitus ulcer of left buttock, stage 2: CODE(S): L89.322 - Pressure ulcer of left buttock, stage 2 (2) Postoperative wound dehiscence: CODE(S): T81.31XA - Disruption of external operation (surgical) wound, not elsewhere classified, initial encounter QUALIFIERS: Encounter type: subsequent encounter Qualified Code(s): T81.31XD - Disruption of external operation (surgical) wound, not elsewhere classified, subsequent encounter (3) Ulcer of abdomen wall with fat layer exposed: CODE(S): L98.492 - Non-pressure chronic ulcer of skin of other sites with fat layer exposed (4) Obesity: CODE(S): E66.9 - Obesity, unspecified QUALIFIERS: Obesity type: unspecified obesity type Obesity classification: adult class 3 (BMI >= 40) Serious obesity comorbidity presence: without serious comorbidity Body mass index: BMI 50.0-59.9 Qualified Code(s): E66.01 - Morbid (severe) obesity due to excess calories; Z68.43 - Body mass index [BMI] 50.0-59.9, adult (5) Open wound of right lower extremity: CODE(S): S81.801A - Unspecified open wound, right lower leg, initial encounter QUALIFIERS: Encounter type: subsequent encounter Qualified Code(s): S81.801D - Unspecified open wound, right lower leg, subsequent encounter (6) Chronic ulcer of left foot with fat layer exposed: CODE(S): L97.522 - Non-pressure chronic ulcer of other part of left foot with fat layer exposed PLAN: Young Navarro's ulcer of her abdomen is healed. This was evaluated and debrided today. Her right senior was evaluated and is healed. Left second toe ulcer is also healed. Her ulcer of left buttock was evaluated and is healed. She has had labs approx. 2 months ago to evaluate her nutrition and for diabetes which nutrition is adequate and A1C was less than 6.0%. Her abdomen will be treated with promogran and silicone foam bordered dressing changed daily for light drainage and protection. We discussed offloading of the site which she has been doing and we also encouraged increased protein intake, weight loss and proper cleansing of the ulcer to facilitate healing. She was advised to call if there are any increased odor, pain, drainage or erythema. She will be discharged from wound care.
[2022-03-31 11:30] VITALS: BP 142/80; PULSE 102; RESP 18; TEMP 36; BMI 112.3
--- NOTE | 2022-03-31 11:45 | WC ---
pt states I went to sit down on walker ad walker moved and fell down on ground. R leg has a wound from fall. incicent happened on 03/25/22
--- NOTE | 2022-03-31 13:34 | PCM.WC.PN ---
History of Present Illness Date of Service: 03/31/22 Chief Complaint: ulcer of left heel, nonhealing wound right senior History of Wound: This is a 46-year-old morbidly obese female who presents today for treatment of a nonhealing ulcer of her left heel which was noticed this week by podiatry. She does not know how long it has been present. Since treatment at podiatry she has had mild greenish drainage from ulcer. 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 She also fell and injured her right senior on her walker on Sunday. She has been dressing the wound with hydrogel and adaptic. She has not been able to change dressings regularly. She is on chronic anticoagulation with warfarin and is obese. She has no odor, erythema. Objective Data Objective Data Vital Signs: Vital Signs Temp Pulse Resp BP O2 Del Method 96.8 F L 102 H 18 142/80 H Room Air 03/31/22 11:30 03/31/22 11:30 03/31/22 11:30 03/31/22 11:30 03/24/22 11:01 Oxygen Delivery Method Room Air Weight: 335 kg Body Mass Index (BMI) 112.3 Physical Exam Const alert, oriented x3 and no apparent distress General Appearance: cooperative and comfortable HEENT normocephalic and head/scalp atraumatic Resp normal respiratory effort Effort and Inspection: able to speak in complete sentences Cardio regular rate and regular rhythm Skin Wounds: wounds noted Wound Narrative: as in clinical panel Psych mental status grossly normal, thought process normal, cooperative and affect normal Debridement Note Debridement Note Wound debrided: right senior Laterality: Right Type of Debridement: Excisional debridement Anesthesia Used: 4% Lidocaine Solution, 5% Lidocaine Gel and Cetacaine Depth: Down to and including healthy tissue and in the subcutaneous layer Percentage of wound debrided: 100 Instrument Used: 7mm curette Tissue Removed: Yellow slough, devitalized tissue Severity: Fat Layer Exposed Amount of bleeding with debridement: Mild Bleeding Controlled with: Compression and gauze Patient tolerated procedure: Patient tolerated procedure well Post-Debridement Measurements and Additional Note: Post-Debridement Measurements/Treatment CIARRA - Nurse 1 - General Ulcer Assessment Start: 03/24/22 11:01 Freq: Status: Active Protocol: NILTON Activity Type Activity Date Activity User E-sign Co-sign Detail Recorded Client Recorded Date Recorded By Document 03/24/22 11:01 [facility] [id number] 03/24/22 11:09 [facility] Document 03/31/22 11:30 RB [id number] 03/31/22 11:47 RB 03/24/22 03/31/22 11:01 11:30 - Today's Visit Information Type of service Follow-up Visit Follow-up Visit (Physician/CLINICAL ADMINISTRATOR (Physician/CLINICAL ADMINISTRATOR ) ) Arrival Mode Ambulatory Ambulatory, Walker Transfer Assistance None None Patient Identification Verified (Name & Yes Yes ) Patient Requires Transmission-Based No No Precautions Height and Weight Body Mass Index (BMI) 112.3 112.3 BMI Classification Obese Obese Vital Signs Temperature (97.8 F-99.1 F) 97.4 F L 96.8 F L Temperature Source Temporal Temporal Pulse Rate (60-100) 122 H 102 H Pulse Location Monitor Monitor Respiratory Rate (12-18) 18 18 Respiratory rate source Observation Observation Oxygen Delivery Method Room Air Blood Pressure (90/60-120/80) 124/86 H 142/80 H Blood Pressure Mean (mm Hg) 98 100 Source Monitor Monitor Position Sitting Semi-Fowlers Blood Pressure Location Left Arm Left Arm History Since Last Visit- (Skip if this is Patient's initial visit) Have you changed medications since your No No last visit? Any new allergies or adverse reactions No No Had a fall/change in ADL's that may No No increase risk of falls Signs or symptoms of abuse and/or No No neglect since last visit Have you been in the hospital since your No No last visit? Has dressing in place as prescribed Yes Yes Has compression in place as prescribed N/A No Has offloadiing in place as prescribed N/A No Experienced any changes in pain level or No No management Left Footwear Regular Shoe Right Footwear Regular Shoe Pain Scale: 0-10 Numeric Is Patient Pain Free? Yes Yes - Nurse 1 - General Ulcer Measurement Start: 03/24/22 11:01 Freq: Status: Active Protocol: Activity Type Activity Date Activity User E-sign Co-sign Detail Recorded Client Recorded Date Recorded By Document 03/24/22 11:01 [facility] [id number] 03/24/22 11:09 [facility] Document 03/31/22 11:30 RB [id number] 03/31/22 11:47 RB 03/24/22 03/31/22 11:01 11:30 Wound Center Nurse 1 #15 Mid Abdomen -Combined with other wound No -Current Size (cm) - Length 0 -Current Size (cm) - Width 0 -Current Size (cm) - Depth 0 -Total Square Cm 0 -Date of Last Picture (Recall this 03/24/22 field) -Photo Taken Yes -Epithelialization Large 67-100% -Texture (Meg-wound Skin Appearance) Assessed, Scarring -Moisture (Meg-wound Skin Appearance) Assessed -Color (Meg-wound Skin Appearance) Assessed -Temperature (Meg-wound Skin No Abnormality Appearance) (Pt Warm) -Tenderness on Palpation (Meg-wound No Skin Appearance) #14 left buttock -Wound Comment(s) DR TO ASSESS 19. left posterior ankle -Combined with other wound No -Current Size (cm) - Length 2.3 -Current Size (cm) - Width 3.1 -Current Size (cm) - Depth 0.1 -Total Square Cm 7.13 -Photo Taken Yes -Tunneling No -Undermining/Tunneling No -Circular Undermining No -Exudate Amt Medium -Exudate Type Yellow/Green -Wound Margin Distinct, Outline Attached -Granulation Amt Medium (34-66%) -Granulation Quality [place] -Slough/Fibrin Yes -Necrosis Amt Medium (34-66%) -Necrotic Tissue Type Adherent Slough -Structure Exposed N/A -Texture (Meg-wound Skin Appearance) Assessed -Moisture (Meg-wound Skin Appearance) Assessed -Color (Meg-wound Skin Appearance) Assessed -Temperature (Meg-wound Skin No Abnormality Appearance) (Pt Warm) -Tenderness on Palpation (Meg-wound No Skin Appearance) -Ulcer Cleansing Wound Cleanser -Foul Odor after Cleansing No -Anesthetic Used 4% Lidocaine Solution 18. R senior cluster -Combined with other wound No -Current Size (cm) - Length 4 -Current Size (cm) - Width 2.5 -Current Size (cm) - Depth 0.1 -Total Square Cm 10.0 -Photo Taken Yes -Tunneling No -Undermining/Tunneling No -Circular Undermining No -Exudate Amt Medium -Exudate Type Serosanguineous -Wound Margin Thickened & Rolled Under -Granulation Amt Medium (34-66%) -Granulation Quality [place],Red -Slough/Fibrin Yes -Necrosis Amt Small (1-33%) -Necrotic Tissue Type Adherent Slough -Structure Exposed N/A -Texture (Meg-wound Skin Appearance) Assessed, Localized Edema -Moisture (Meg-wound Skin Appearance) Assessed -Color (Meg-wound Skin Appearance) Assessed -Temperature (Meg-wound Skin No Abnormality Appearance) (Pt Warm) -Tenderness on Palpation (Meg-wound No Skin Appearance) -Ulcer Cleansing Wound Cleanser -Foul Odor after Cleansing No -Anesthetic Used 4% Lidocaine Solution Lower Limb Edema Present Yes Right Calf (cm) 62 Right Ankle (cm) 33 03/31/22 11:45 Wound Center by Bekah Gan pt states I went to sit down on walker ad walker moved and fell down on ground. R leg has a wound from fall. incicent happened on 03/25/22 Initialized on 03/31/22 11:45 - END OF NOTE WC - Nurse 2 - General Ulcer CM Notes Start: 03/24/22 11:01 Freq: Status: Active Protocol: Activity Type Activity Date Activity User E-sign Co-sign Detail Recorded Client Recorded Date Recorded By Document 03/24/22 11:17 MW [id number] 03/24/22 11:20 MW Document 03/31/22 12:05 MW [id number] 03/31/22 12:19 MW 03/24/22 03/31/22 11:17 12:05 Wound Center Nurse 2 #15 Mid Abdomen -Time 11:17 -Correct Patient Yes -Correct Side, Site, Position Yes -Correct Procedure Yes -Procedure Performed No -Post Debridement (cm) - Length 0 -Post Debridement (cm) - Width 0 -Total Square (Post) (cm) 0 -Wound/Ulcer Outcome Healed- Epithelialized #14 left buttock -Time 11:17 -Correct Patient Yes -Correct Side, Site, Position Yes -Correct Procedure Yes -Procedure Performed No -Post Debridement (cm) - Length 0 -Post Debridement (cm) - Width 0 -Post Debridement (cm) - Depth 0 -Total Square (Post) (cm) 0 -Wound/Ulcer Outcome Healed- Epithelialized 19. left posterior ankle -Time 12:05 -Correct Patient Yes -Correct Side, Site, Position Yes -Correct Procedure Yes -Procedure Performed Yes -Type of Procedure Debridement -Clinical Debridement Subcutaneous -Tissue Removed Subcutaneous -Post Debridement (cm) - Length 1.2 -Post Debridement (cm) - Width 3.8 -Post Debridement (cm) - Depth 0.1 -Total Square (Post) (cm) 4.56 -Area of Debridement (cm) - Length 1.2 -Area of Debridement (cm) - Width 3.8 -Total Square (Area) (cm) 4.56 -Tunneling No -Undermining/Tunneling No -Circular Undermining No -Wound/Ulcer Outcome Not Healed -Ulcer Cleansing Rinsed/ Irrigated with Saline -Foul Odor after Cleansing No -Bioengineered Tissue No -Bleeding Controlled with Pressure -Treatment Response Procedure Tolerated Well -Offloading No -Debridement - Subq, 1st 20sq cm Yes 18. R senior cluster -Time 12:15 -Correct Patient Yes -Correct Side, Site, Position Yes -Correct Procedure Yes -Procedure Performed Yes -Type of Procedure Debridement -Clinical Debridement Subcutaneous -Tissue Removed Subcutaneous -Post Debridement (cm) - Length 3.0 -Post Debridement (cm) - Width 3.0 -Post Debridement (cm) - Depth 0.2 -Total Square (Post) (cm) 9.00 -Area of Debridement (cm) - Length 3.0 -Area of Debridement (cm) - Width 3.0 -Total Square (Area) (cm) 9.00 -Tunneling No -Undermining/Tunneling No -Circular Undermining No -Wound/Ulcer Outcome Not Healed -Ulcer Cleansing Rinsed/ Irrigated with Saline -Foul Odor after Cleansing No -Bioengineered Tissue No -Bleeding Controlled with Pressure -Treatment Response Procedure Tolerated Well -Offloading No -Debridement - Subq, 1st 20sq cm No Pain Scale: 0-10 Numeric Is Patient Pain Free? Yes Yes WC - Nurse 3 - General Ulcer D/C NN Start: 03/24/22 11:01 Freq: Status: Active Protocol: Activity Type Activity Date Activity User E-sign Co-sign Detail Recorded Client Recorded Date Recorded By Document 03/24/22 11:20 MW [id number] 03/24/22 11:20 MW Document 03/31/22 12:34 RB [id number] 03/31/22 12:35 RB 03/24/22 03/31/22 11:20 12:34 Wound Care Nurse 3 19. left posterior ankle -Ulcer Cleansing Wound Cleanser -Primary Dressing Applied C Hydrogel ($), Mepilex Border, NonAdherent Contact Layer -Mepilex Border 1 18. R senior cluster -Ulcer Cleansing Wound Cleanser -Primary Dressing Applied C Hydrogel ($), Mepilex Border -Other Dressing hydrogel -Mepilex Border 1 Right -Other norman Treatment Response Procedure Procedure Tolerated Well Tolerated Well Pain Scale: 0-10 Numeric Is Patient Pain Free? Yes Yes Teaching: Wound Center Discharge Instructions -Person Taught Patient -Teaching Method Discussion -Response to teaching Verbalize understanding WC - Visit Discharge Discharge Condition Stable Stable Ambulatory Status Ambulatory, Ambulatory, Walker Walker Transportation Private Auto Private Auto Accompanied by self Medication Reconcilliation completed & No No provided to patient/care provider Clinical Summary of Care Provided Yes Yes Additional Wound Wound debrided: left heel Laterality: Left Type of Debridement: Excisional debridement Anesthesia Used: 4% Lidocaine Solution and 5% Lidocaine Gel Depth: Down to and including healthy tissue and in the subcutaneous layer Percentage of wound debrided: 100 Instrument Used: 7mm curette Tissue Removed: Yellow slough, devitalized tissue Severity: Fat Layer Exposed Amount of bleeding with debridement: Mild Bleeding Controlled with: Compression and gauze Patient tolerated procedure: Patient tolerated procedure well Assessment/Plan Assessment/Plan (1) Decubitus ulcer of left buttock, stage 2: CODE(S): L89.322 - Pressure ulcer of left buttock, stage 2 (2) Postoperative wound dehiscence: CODE(S): T81.31XA - Disruption of external operation (surgical) wound, not elsewhere classified, initial encounter QUALIFIERS: Encounter type: subsequent encounter Qualified Code(s): T81.31XD - Disruption of external operation (surgical) wound, not elsewhere classified, subsequent encounter (3) Ulcer of abdomen wall with fat layer exposed: CODE(S): L98.492 - Non-pressure chronic ulcer of skin of other sites with fat layer exposed (4) Obesity: CODE(S): E66.9 - Obesity, unspecified QUALIFIERS: Obesity type: unspecified obesity type Obesity classification: adult class 3 (BMI >= 40) Serious obesity comorbidity presence: without serious comorbidity Body mass index: BMI 50.0-59.9 Qualified Code(s): E66.01 - Morbid (severe) obesity due to excess calories; Z68.43 - Body mass index [BMI] 50.0-59.9, adult (5) Open wound of right lower extremity: CODE(S): S81.801A - Unspecified open wound, right lower leg, initial encounter QUALIFIERS: Encounter type: subsequent encounter Qualified Code(s): S81.801D - Unspecified open wound, right lower leg, subsequent encounter (6) Chronic ulcer of left foot with fat layer exposed: CODE(S): L97.522 - Non-pressure chronic ulcer of other part of left foot with fat layer exposed PLAN: Plan Melanie's ulcer and right senior wound are healed. These were evaluated and debrided today. She has had labs approx. 2 months ago to evaluate her nutrition and for diabetes which nutrition is adequate and A1C was less than 6.0%. Her right senior will be treated with hydrogel and adaptic and covered with a foam bordered dressing for protection. Her left heel will also be treated with hydrogel and adaptic and foam bordered dressing for protection. We discussed offloading of the site which she has been doing and we also encouraged increased protein intake, weight loss and proper cleansing of the ulcer to facilitate healing. She was advised to call if there are any increased odor, pain, drainage or erythema. She will follow up in 1 week for wound care.
[2022-04-07 11:42] VITALS: BP 184/89; PULSE 100; RESP 18; TEMP 36.1; BMI 112.3
--- NOTE | 2022-04-07 14:16 | PN.PCM_ITS ---
History of Present Illness Date of Service: 04/07/22 Chief Complaint: ulcer of left heel, nonhealing wound right senior History of Wound: This is a 46-year-old morbidly obese female who presents today for treatment of a nonhealing ulcer of her left heel which was noticed this week by podiatry. She does not know how long it has been present. Since treatment at podiatry she has had mild greenish drainage from ulcer. 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 She also fell and injured her right senior on her walker on Sunday. She has been dressing the wound with hydrogel and adaptic. She has not been able to change dressings regularly. She is on chronic anticoagulation with warfarin and is obese. She has no odor, erythema. Subjective Subjective Melanie's senior is improving and her left heel is also improving. Both areas are still painful and have light drainage. Her wound culture was positive for Pseudomonas and for anaerobic bacteria. She was started on Ciprofloxacin and Flagyl. She is tolerating this treatment well. She denies any increased drainage, odor or erythema. Objective Data Objective Data Vital Signs: Vital Signs Temp Pulse Resp BP O2 Del Method 97 F L 100 18 184/89 H Room Air 04/07/22 11:42 04/07/22 11:42 04/07/22 11:42 04/07/22 11:42 03/24/22 11:01 Oxygen Delivery Method Room Air Weight: 335 kg Body Mass Index (BMI) 112.3 Lab / Micro Data Micro: Microbiology 03/31/22 12:15 Wound Abcess - Ankle Gram Stain - Final 03/31/22 12:15 Wound Abcess - Ankle Wound Culture - Final Pseudomonas aeroginosa Meth. resistant Staph. aureus Staphylococcus capitis 03/31/22 12:15 Wound Abcess - Ankle Anaerobic Culture - Final Anaerobic cocci Physical Exam Const alert, oriented x3 and no apparent distress General Appearance: cooperative and comfortable HEENT normocephalic and head/scalp atraumatic Resp normal respiratory effort Effort and Inspection: able to speak in complete sentences Cardio regular rate and regular rhythm Skin Wounds: wounds noted Wound Narrative: as in clinical panel Psych mental status grossly normal, thought process normal, cooperative and affect normal Debridement Note Debridement Note Wound debrided: right senior Laterality: Right Type of Debridement: Excisional debridement Anesthesia Used: 4% Lidocaine Solution, 5% Lidocaine Gel and Cetacaine Depth: Down to and including healthy tissue and in the subcutaneous layer Percentage of wound debrided: 100 Instrument Used: 7mm curette Tissue Removed: Yellow slough, devitalized tissue Severity: Fat Layer Exposed Amount of bleeding with debridement: Mild Bleeding Controlled with: Compression and gauze Patient tolerated procedure: Patient tolerated procedure well Post-Debridement Measurements and Additional Note: Post-Debridement Measurements/Treatment - Nurse 1 - General Ulcer Assessment Start: 03/24/22 11:01 Freq: Status: Active Protocol: [place]IL[place] Activity Type Activity Date Activity User E-sign Co-sign Detail Recorded Client Recorded Date Recorded By Document 03/24/22 11:01 [facility] [id number] 03/24/22 11:09 BM Document 03/31/22 11:30 RB [id number] 03/31/22 11:47 RB Document 04/07/22 11:42 RB [id number] 04/07/22 11:52 RB 03/24/22 03/31/22 04/07/22 11:01 11:30 11:42 - Today's Visit Information Type of service Follow-up Visit Follow-up Visit Follow-up Visit (Physician/ANIMAL LABORATORY HELPER (Physician/ANIMAL LABORATORY HELPER (Physician/ANIMAL LABORATORY HELPER ) ) ) Arrival Mode Ambulatory Ambulatory, Ambulatory, Walker Walker Transfer Assistance None None None Patient Identification Verified (Name & Yes Yes Yes ) Patient Requires Transmission-Based No No No Precautions Height and Weight Body Mass Index (BMI) 112.3 112.3 112.3 BMI Classification Obese Obese Obese Vital Signs Temperature (97.8 F-99.1 F) 97.4 F L 96.8 F L 97 F L Temperature Source Temporal Temporal Temporal Pulse Rate (60-100) 122 H 102 H 100 Pulse Location Monitor Monitor Monitor Respiratory Rate (12-18) 18 18 18 Respiratory rate source Observation Observation Observation Oxygen Delivery Method Room Air Blood Pressure (90/60-120/80) 124/86 H 142/80 H 184/89 H Blood Pressure Mean (mm Hg) 98 100 120 Source Monitor Monitor Monitor Position Sitting Semi-Fowlers Sitting Blood Pressure Location Left Arm Left Arm Left Arm History Since Last Visit- (Skip if this is Patient's initial visit) Have you changed medications since your No No No last visit? Any new allergies or adverse reactions No No No Had a fall/change in ADL's that may No No No increase risk of falls Signs or symptoms of abuse and/or No No No neglect since last visit Have you been in the hospital since your No No No last visit? Has dressing in place as prescribed Yes Yes Yes Has compression in place as prescribed N/A No No Has offloadiing in place as prescribed N/A No No Experienced any changes in pain level or No No No management Left Footwear Regular Shoe Right Footwear Regular Shoe Pain Scale: 0-10 Numeric Is Patient Pain Free? Yes Yes Yes WC - Nurse 1 - General Ulcer Measurement Start: 03/24/22 11:01 Freq: Status: Active Protocol: Activity Type Activity Date Activity User E-sign Co-sign Detail Recorded Client Recorded Date Recorded By Document 03/24/22 11:01 [facility] [id number] 03/24/22 11:09 BM Document 03/31/22 11:30 RB [id number] 03/31/22 11:47 RB Document 04/07/22 11:42 RB [id number] 04/07/22 11:52 RB 03/24/22 03/31/22 04/07/22 11:01 11:30 11:42 Wound Center Nurse 1 #15 Mid Abdomen -Combined with other wound No -Current Size (cm) - Length 0 -Current Size (cm) - Width 0 -Current Size (cm) - Depth 0 -Total Square Cm 0 -Date of Last Picture (Recall this 03/24/22 field) -Photo Taken Yes -Epithelialization Large 67-100% -Texture (Meg-wound Skin Appearance) Assessed, Scarring -Moisture (Meg-wound Skin Appearance) Assessed -Color (Meg-wound Skin Appearance) Assessed -Temperature (Meg-wound Skin No Abnormality Appearance) (Pt Warm) -Tenderness on Palpation (Meg-wound No Skin Appearance) #14 left buttock -Wound Comment(s) DR TO ASSESS 19. left posterior ankle -Combined with other wound No No -Current Size (cm) - Length 2.3 2 -Current Size (cm) - Width 3.1 3.8 -Current Size (cm) - Depth 0.1 0.1 -Total Square Cm 7.13 7.6 -Photo Taken Yes Yes -Tunneling No No -Undermining/Tunneling No No -Circular Undermining No No -Exudate Amt Medium Medium -Exudate Type Yellow/Green Serosanguineous -Wound Margin Distinct, Distinct, Outline Outline Attached Attached -Granulation Amt Medium (34-66%) Medium (34-66%) -Granulation Quality [place] -Slough/Fibrin Yes Yes -Necrosis Amt Medium (34-66%) Medium (34-66%) -Necrotic Tissue Type Adherent Slough Adherent Slough -Structure Exposed N/A N/A -Texture (Meg-wound Skin Appearance) Assessed Excoriation -Moisture (Meg-wound Skin Appearance) Assessed Assessed -Color (Meg-wound Skin Appearance) Assessed Assessed -Temperature (Meg-wound Skin No Abnormality No Abnormality Appearance) (Pt Warm) (Pt Warm) -Tenderness on Palpation (Meg-wound No No Skin Appearance) -Ulcer Cleansing Wound Cleanser Wound Cleanser -Foul Odor after Cleansing No No -Anesthetic Used 4% Lidocaine 5% Lidocaine Solution Gel 18. R senior cluster -Combined with other wound No No -Current Size (cm) - Length 4 1.7 -Current Size (cm) - Width 2.5 2 -Current Size (cm) - Depth 0.1 0.2 -Total Square Cm 10.0 3.4 -Photo Taken Yes Yes -Tunneling No No -Undermining/Tunneling No No -Circular Undermining No No -Exudate Amt Medium Medium -Exudate Type Serosanguineous Serosanguineous -Wound Margin Thickened & Distinct, Rolled Under Outline Attached -Granulation Amt Medium (34-66%) Medium (34-66%) -Granulation Quality [place],Red [place],Red -Slough/Fibrin Yes Yes -Necrosis Amt Small (1-33%) Medium (34-66%) -Necrotic Tissue Type Adherent Slough Adherent Slough -Structure Exposed N/A N/A -Texture (Meg-wound Skin Appearance) Assessed, Assessed Localized Edema -Moisture (Meg-wound Skin Appearance) Assessed Assessed -Color (Meg-wound Skin Appearance) Assessed Hemosiderin Staining -Temperature (Meg-wound Skin No Abnormality No Abnormality Appearance) (Pt Warm) (Pt Warm) -Tenderness on Palpation (Meg-wound No No Skin Appearance) -Ulcer Cleansing Wound Cleanser Wound Cleanser -Foul Odor after Cleansing No No -Anesthetic Used 4% Lidocaine 5% Lidocaine Solution Gel Lower Limb Edema Present Yes Right Calf (cm) 62 Right Ankle (cm) 33 03/31/22 11:45 Wound Center by Bekah Gan pt states I went to sit down on walker ad walker moved and fell down on ground. R leg has a wound from fall. incicent happened on 03/25/22 Initialized on 03/31/22 11:45 - END OF NOTE WC - Nurse 2 - General Ulcer CM Notes Start: 03/24/22 11:01 Freq: Status: Active Protocol: Activity Type Activity Date Activity User E-sign Co-sign Detail Recorded Client Recorded Date Recorded By Document 03/24/22 11:17 MW [id number] 03/24/22 11:20 MW Document 03/31/22 12:05 MW [id number] 03/31/22 12:19 MW Document 04/07/22 12:22 MW [id number] 04/07/22 12:37 MW 03/24/22 03/31/22 12 11:17 12:05 12:22 Wound Center Nurse 2 #15 Mid Abdomen -Time 11:17 -Correct Patient Yes -Correct Side, Site, Position Yes -Correct Procedure Yes -Procedure Performed No -Post Debridement (cm) - Length 0 -Post Debridement (cm) - Width 0 -Total Square (Post) (cm) 0 -Wound/Ulcer Outcome Healed- Epithelialized #14 left buttock -Time 11:17 -Correct Patient Yes -Correct Side, Site, Position Yes -Correct Procedure Yes -Procedure Performed No -Post Debridement (cm) - Length 0 -Post Debridement (cm) - Width 0 -Post Debridement (cm) - Depth 0 -Total Square (Post) (cm) 0 -Wound/Ulcer Outcome Healed- Epithelialized 19. left posterior ankle -Time 12:05 12:22 -Correct Patient Yes Yes -Correct Side, Site, Position Yes Yes -Correct Procedure Yes Yes -Procedure Performed Yes Yes -Type of Procedure Debridement Debridement -Clinical Debridement Subcutaneous Subcutaneous -Tissue Removed Subcutaneous Subcutaneous -Post Debridement (cm) - Length 1.2 0.7 -Post Debridement (cm) - Width 3.8 3.0 -Post Debridement (cm) - Depth 0.1 0.1 -Total Square (Post) (cm) 4.56 2.10 -Area of Debridement (cm) - Length 1.2 0.7 -Area of Debridement (cm) - Width 3.8 3.0 -Total Square (Area) (cm) 4.56 2.10 -Tunneling No No -Undermining/Tunneling No No -Circular Undermining No No -Wound/Ulcer Outcome Not Healed Not Healed -Ulcer Cleansing Rinsed/ Rinsed/ Irrigated with Irrigated with Saline Saline -Foul Odor after Cleansing No No -Bioengineered Tissue No No -Bleeding Controlled with Pressure Pressure -Treatment Response Procedure Procedure Tolerated Well Tolerated Well -Offloading No No -Debridement - Subq, 1st 20sq cm Yes Yes 18. R senior cluster -Time 12:15 12:24 -Correct Patient Yes Yes -Correct Side, Site, Position Yes Yes -Correct Procedure Yes Yes -Procedure Performed Yes Yes -Type of Procedure Debridement Debridement -Clinical Debridement Subcutaneous Subcutaneous -Tissue Removed Subcutaneous Subcutaneous -Post Debridement (cm) - Length 3.0 1.7 -Post Debridement (cm) - Width 3.0 2.0 -Post Debridement (cm) - Depth 0.2 0.1 -Total Square (Post) (cm) 9.00 3.40 -Area of Debridement (cm) - Length 3.0 1.7 -Area of Debridement (cm) - Width 3.0 2.0 -Total Square (Area) (cm) 9.00 3.40 -Tunneling No No -Undermining/Tunneling No No -Circular Undermining No No -Wound/Ulcer Outcome Not Healed Not Healed -Ulcer Cleansing Rinsed/ Rinsed/ Irrigated with Irrigated with Saline Saline -Foul Odor after Cleansing No No -Bioengineered Tissue No No -Bleeding Controlled with Pressure Pressure -Treatment Response Procedure Procedure Tolerated Well Tolerated Well -Offloading No No -Debridement - Subq, 1st 20sq cm No No Pain Scale: 0-10 Numeric Is Patient Pain Free? Yes Yes Yes WC - Nurse 3 - General Ulcer D/C NN Start: 03/24/22 11:01 Freq: Status: Active Protocol: Activity Type Activity Date Activity User E-sign Co-sign Detail Recorded Client Recorded Date Recorded By Document 03/24/22 11:20 MW [id number] 03/24/22 11:20 MW Document 03/31/22 12:34 RB [id number] 03/31/22 12:35 RB Document 04/07/22 12:57 RB [id number] 04/07/22 12:58 RB 03/24/22 03/31/22 04/07/22 11:20 12:34 12:57 Wound Care Nurse 3 19. left posterior ankle -Ulcer Cleansing Wound Cleanser -Primary Dressing Applied C Hydrogel ($), Mepilex Border, Mepilex Border, NonAdherent NonAdherent Contact Layer Contact Layer -Other Dressing hydrogel -Mepilex Border 1 1 18. R senior cluster -Ulcer Cleansing Wound Cleanser -Primary Dressing Applied C Hydrogel ($), Mepilex Border, Mepilex Border NonAdherent Contact Layer -Other Dressing hydrogel hydrogel -Mepilex Border 1 1 Right -Other norman norman Treatment Response Procedure Procedure Procedure Tolerated Well Tolerated Well Tolerated Well Pain Scale: 0-10 Numeric Is Patient Pain Free? Yes Yes Yes Teaching: Wound Center Discharge Instructions -Person Taught Patient -Teaching Method Discussion -Response to teaching Verbalize understanding WC - Visit Discharge Discharge Condition Stable Stable Stable Ambulatory Status Ambulatory, Ambulatory, Walker Walker Walker Transportation Private Auto Private Auto Private Auto Accompanied by self Medication Reconcilliation completed & No No No provided to patient/care provider Clinical Summary of Care Provided Yes Yes Yes Additional Wound Wound debrided: left heel Laterality: Left Type of Debridement: Excisional debridement Anesthesia Used: 4% Lidocaine Solution and 5% Lidocaine Gel Depth: Down to and including healthy tissue and in the subcutaneous layer Percentage of wound debrided: 100 Instrument Used: 7mm curette Tissue Removed: Yellow slough, devitalized tissue Severity: Fat Layer Exposed Amount of bleeding with debridement: Mild Bleeding Controlled with: Compression and gauze Patient tolerated procedure: Patient tolerated procedure well Assessment/Plan Assessment/Plan (1) Decubitus ulcer of left buttock, stage 2: CODE(S): L89.322 - Pressure ulcer of left buttock, stage 2 (2) Postoperative wound dehiscence: CODE(S): T81.31XA - Disruption of external operation (surgical) wound, not elsewhere classified, initial encounter QUALIFIERS: Encounter type: subsequent encounter Qualified Code(s): T81.31XD - Disruption of external operation (surgical) wound, not elsewhere classified, subsequent encounter (3) Ulcer of abdomen wall with fat layer exposed: CODE(S): L98.492 - Non-pressure chronic ulcer of skin of other sites with fat layer exposed (4) Obesity: CODE(S): E66.9 - Obesity, unspecified QUALIFIERS: Obesity type: unspecified obesity type Obesity cl assification: adult class 3 (BMI >= 40) Serious obesity comorbidity presence: without serious comorbidity Body mass index: BMI 50.0-59.9 Qualified Code(s): E66.01 - Morbid (severe) obesity due to excess calories; Z68.43 - Body mass index [BMI] 50.0-59.9, adult (5) Open wound of right lower extremity: CODE(S): S81.801A - Unspecified open wound, right lower leg, initial encounter QUALIFIERS: Encounter type: subsequent encounter Qualified Code(s): S81.801D - Unspecified open wound, right lower leg, subsequent encounter (6) Chronic ulcer of left foot with fat layer exposed: CODE(S): L97.522 - Non-pressure chronic ulcer of other part of left foot with fat layer exposed PLAN: Young Navarro's right senior wound and left heel ulcer are improving. These were evaluated and debrided today. She has had labs approx. 2 months ago to evaluate her nutrition and for diabetes which nutrition is adequate and A1C was less than 6.0%. Her right senior will be treated with hydrogel and adaptic and covered with a foam bordered dressing for protection. Her left heel will also be treated with hydrogel and adaptic and foam bordered dressing for protection. We discussed offloading of the site which she has been doing and we also encouraged increased protein intake, weight loss and proper cleansing of the ulcer to facilitate healing. She was advised to call if there are any increased odor, pain, drainage or erythema. She will follow up in 2 weeks for wound care.
[2022-04-21 11:24] VITALS: BP 139/60; PULSE 69; TEMP 36.2; BMI 112.3
--- NOTE | 2022-04-21 14:07 | PN.PCM_ITS ---
History of Present Illness Date of Service: 04/21/22 Chief Complaint: ulcer of left heel, nonhealing wound right senior History of Wound: This is a 46-year-old morbidly obese female who presents today for treatment of a nonhealing ulcer of her left heel which was noticed this week by podiatry. She does not know how long it has been present. Since treatment at podiatry she has had mild greenish drainage from ulcer. 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 She also fell and injured her right senior on her walker on Sunday. She has been dressing the wound with hydrogel and adaptic. She has not been able to change dressings regularly. She is on chronic anticoagulation with warfarin and is obese. She has no odor, erythema. Subjective Subjective Melanie's senior is healed and her left heel is improving. Both areas are still painful and have light drainage. Her wound culture was positive for Pseudomonas and for anaerobic bacteria. She completed treatment with Ciprofloxacin and Flagyl. She is tolerating this treatment well. She denies any increased drainage, odor or erythema. Objective Data Objective Data Vital Signs: Vital Signs Temp Pulse Resp BP O2 Del Method 97.2 F L 69 18 139/60 H Room Air 04/21/22 11:24 04/21/22 11:24 04/07/22 11:42 04/21/22 11:24 03/24/22 11:01 Oxygen Delivery Method Room Air Weight: 335 kg Body Mass Index (BMI) 112.3 Lab / Micro Data Micro: Microbiology 03/31/22 12:15 Wound Abcess - Ankle Gram Stain - Final 03/31/22 12:15 Wound Abcess - Ankle Wound Culture - Final Pseudomonas aeroginosa Meth. resistant Staph. aureus Staphylococcus capitis 03/31/22 12:15 Wound Abcess - Ankle Anaerobic Culture - Final Anaerobic cocci Physical Exam Const alert, oriented x3 and no apparent distress General Appearance: cooperative and comfortable HEENT normocephalic and head/scalp atraumatic Resp normal respiratory effort Effort and Inspection: able to speak in complete sentences Cardio regular rate and regular rhythm Skin Wounds: wounds noted Wound Narrative: as in clinical panel Psych mental status grossly normal, thought process normal, cooperative and affect normal Debridement Note Debridement Note Wound debrided: right sneior Laterality: Right No debridement was completed: No debridement was completed today (wound is healed) Post-Debridement Measurements and Additional Note: Post-Debridement Measurements/Treatment WC - Nurse 1 - General Ulcer Assessment Start: 03/24/22 11:01 Freq: Status: Active Protocol: NILTON Activity Type Activity Date Activity User E-sign Co-sign Detail Recorded Client Recorded Date Recorded By Document 03/24/22 11:01 BMF [id number] 03/24/22 11:09 BMF Document 03/31/22 11:30 RB [id number] 03/31/22 11:47 RB Document 04/07/22 11:42 RB [id number] 04/07/22 11:52 RB Document 04/21/22 11:24 AK [id number] 04/21/22 11:27 AK 03/24/22 03/31/22 04/07/22 11:01 11:30 11:42 WC - Today's Visit Information Type of service Follow-up Visit Follow-up Visit Follow-up Visit (Physician/THERMAL CUTTER HAND (Physician/THERMAL CUTTER HAND (Physician/THERMAL CUTTER HAND ) ) ) Arrival Mode Ambulatory Ambulatory, Ambulatory, Walker Walker Transfer Assistance None None None Patient Identification Verified (Name & Yes Yes Yes ) Patient Requires Transmission-Based No No No Precautions Height and Weight Body Mass Index (BMI) 112.3 112.3 112.3 BMI Classification Obese Obese Obese Vital Signs Temperature (97.8 F-99.1 F) 97.4 F L 96.8 F L 97 F L Temperature Source Temporal Temporal Temporal Pulse Rate (60-100) 122 H 102 H 100 Pulse Location Monitor Monitor Monitor Respiratory Rate (12-18) 18 18 18 Respiratory rate source Observation Observation Observation Oxygen Delivery Method Room Air Blood Pressure (90/60-120/80) 124/86 H 142/80 H 184/89 H Blood Pressure Mean (mm Hg) 98 100 120 Source Monitor Monitor Monitor Position Sitting Semi-Fowlers Sitting Blood Pressure Location Left Arm Left Arm Left Arm History Since Last Visit- (Skip if this is Patient's initial visit) Have you changed medications since your No No No last visit? Any new allergies or adverse reactions No No No Had a fall/change in ADL's that may No No No increase risk of falls Signs or symptoms of abuse and/or No No No neglect since last visit Have you been in the hospital since your No No No last visit? Has dressing in place as prescribed Yes Yes Yes Has compression in place as prescribed N/A No No Has offloadiing in place as prescribed N/A No No Experienced any changes in pain level or No No No management Left Footwear Regular Shoe Right Footwear Regular Shoe Pain Scale: 0-10 Numeric Is Patient Pain Free? Yes Yes Yes 04/21/22 11:24 - Today's Visit Information Type of service Follow-up Visit (Physician/THERMAL CUTTER HAND ) Arrival Mode Ambulatory, Walker Transfer Assistance Patient Identification Verified (Name & Yes ) Patient Requires Transmission-Based Precautions Height and Weight Body Mass Index (BMI) 112.3 BMI Classification Obese Vital Signs Temperature (97.8 F-99.1 F) 97.2 F L Temperature Source Temporal Pulse Rate (60-100) 69 Pulse Location Monitor Respiratory Rate (12-18) Respiratory rate source Oxygen Delivery Method Blood Pressure (90/60-120/80) 139/60 H Blood Pressure Mean (mm Hg) 86 Source Monitor Position Blood Pressure Location History Since Last Visit- (Skip if this is Patient's initial visit) Have you changed medications since your No last visit? Any new allergies or adverse reactions No Had a fall/change in ADL's that may No increase risk of falls Signs or symptoms of abuse and/or No neglect since last visit Have you been in the hospital since your No last visit? Has dressing in place as prescribed Yes Has compression in place as prescribed No Has offloadiing in place as prescribed N/A Experienced any changes in pain level or No management Left Footwear Regular Shoe Right Footwear Regular Shoe Pain Scale: 0-10 Numeric Is Patient Pain Free? Yes - Nurse 1 - General Ulcer Measurement Start: 03/24/22 11:01 Freq: Status: Active Protocol: Activity Type Activity Date Activity User E-sign Co-sign Detail Recorded Client Recorded Date Recorded By Document 03/24/22 11:01 BM [id number] 03/24/22 11:09 BMF Document 03/31/22 11:30 RB [id number] 03/31/22 11:47 RB Document 04/07/22 11:42 RB [id number] 04/07/22 11:52 RB Document 04/21/22 11:24 AK [id number] 04/21/22 11:27 AK 03/24/22 03/31/22 04/07/22 11:01 11:30 11:42 Wound Center Nurse 1 18. R senior cluster -Combined with other wound No No -Current Size (cm) - Length 4 1.7 -Current Size (cm) - Width 2.5 2 -Current Size (cm) - Depth 0.1 0.2 -Total Square Cm 10.0 3.4 -Photo Taken Yes Yes -Tunneling No No -Undermining/Tunneling No No -Circular Undermining No No -Change in Wound Grade/Stage -Exudate Amt Medium Medium -Exudate Type Serosanguineous Serosanguineous -Wound Margin Thickened & Distinct, Rolled Under Outline Attached -Granulation Amt Medium (34-66%) Medium (34-66%) -Granulation Quality [place],Red [place],Red -Slough/Fibrin Yes Yes -Necrosis Amt Small (1-33%) Medium (34-66%) -Necrotic Tissue Type Adherent Slough Adherent Slough -Structure Exposed N/A N/A -Texture (Meg-wound Skin Appearance) Assessed, Assessed Localized Edema -Moisture (Meg-wound Skin Appearance) Assessed Assessed -Color (Meg-wound Skin Appearance) Assessed Hemosiderin Staining -Temperature (Meg-wound Skin No Abnormality No Abnormality Appearance) (Pt Warm) (Pt Warm) -Tenderness on Palpation (Meg-wound No No Skin Appearance) -Ulcer Cleansing Wound Cleanser Wound Cleanser -Foul Odor after Cleansing No No -Anesthetic Used 4% Lidocaine 5% Lidocaine Solution Gel #15 Mid Abdomen -Combined with other wound No -Current Size (cm) - Length 0 -Current Size (cm) - Width 0 -Current Size (cm) - Depth 0 -Total Square Cm 0 -Date of Last Picture (Recall this 03/24/22 field) -Photo Taken Yes -Epithelialization Large 67-100% -Texture (Meg-wound Skin Appearance) Assessed, Scarring -Moisture (Meg-wound Skin Appearance) Assessed -Color (Meg-wound Skin Appearance) Assessed -Temperature (Meg-wound Skin No Abnormality Appearance) (Pt Warm) -Tenderness on Palpation (Meg-wound No Skin Appearance) #14 left buttock -Wound Comment(s) DR TO ASSESS 19. left posterior ankle -Combined with other wound No No -Current Size (cm) - Length 2.3 2 -Current Size (cm) - Width 3.1 3.8 -Current Size (cm) - Depth 0.1 0.1 -Total Square Cm 7.13 7.6 -Photo Taken Yes Yes -Tunneling No No -Undermining/Tunneling No No -Circular Undermining No No -Change in Wound Grade/Stage -Exudate Amt Medium Medium -Exudate Type Yellow/Green Serosanguineous -Wound Margin Distinct, Distinct, Outline Outline Attached Attached -Granulation Amt Medium (34-66%) Medium (34-66%) -Granulation Quality [place] -Slough/Fibrin Yes Yes -Necrosis Amt Medium (34-66%) Medium (34-66%) -Necrotic Tissue Type Adherent Slough Adherent Slough -Structure Exposed N/A N/A -Texture (Meg-wound Skin Appearance) Assessed Excoriation -Moisture (Meg-wound Skin Appearance) Assessed Assessed -Color (Meg-wound Skin Appearance) Assessed Assessed -Temperature (Meg-wound Skin No Abnormality No Abnormality Appearance) (Pt Warm) (Pt Warm) -Tenderness on Palpation (Meg-wound No No Skin Appearance) -Ulcer Cleansing Wound Cleanser Wound Cleanser -Foul Odor after Cleansing No No -Anesthetic Used 4% Lidocaine 5% Lidocaine Solution Gel Lower Limb Edema Present Yes Right Calf (cm) 62 Right Ankle (cm) 33 04/21/22 11:24 Wound Center Nurse 1 18. R senior cluster -Combined with other wound No -Current Size (cm) - Length 0.1 -Current Size (cm) - Width 0.1 -Current Size (cm) - Depth 0.1 -Total Square Cm 0.01 -Photo Taken No -Tunneling No -Undermining/Tunneling No -Circular Undermining No -Change in Wound Grade/Stage No -Exudate Amt None Present -Exudate Type Serosanguineous -Wound Margin Distinct, Outline Attached -Granulation Amt Large (67-100%) -Granulation Quality [place] -Slough/Fibrin Yes -Necrosis Amt Small (1-33%) -Necrotic Tissue Type Adherent Slough -Structure Exposed N/A -Texture (Meg-wound Skin Appearance) No Abnormality, Assessed -Moisture (Meg-wound Skin Appearance) No Abnormality, Assessed -Color (Meg-wound Skin Appearance) No Abnormality, Assessed -Temperature (Meg-wound Skin No Abnormality Appearance) (Pt Warm) -Tenderness on Palpation (Meg-wound No Skin Appearance) -Ulcer Cleansing Soap and Water -Foul Odor after Cleansing No -Anesthetic Used 5% Lidocaine Gel #15 Mid Abdomen -Combined with other wound -Current Size (cm) - Length -Current Size (cm) - Width -Current Size (cm) - Depth -Total Square Cm -Date of Last Picture (Recall this field) -Photo Taken -Epithelialization -Texture (Meg-wound Skin Appearance) -Moisture (Meg-wound Skin Appearance) -Color (Meg-wound Skin Appearance) -Temperature (Meg-wound Skin Appearance) -Tenderness on Palpation (Meg-wound Skin Appearance) #14 left buttock -Wound Comment(s) 19. left posterior ankle -Combined with other wound No -Current Size (cm) - Length 1 -Current Size (cm) - Width 4 -Current Size (cm) - Depth 0.1 -Total Square Cm 4 -Photo Taken No -Tunneling No -Undermining/Tunneling No -Circular Undermining No -Change in Wound Grade/Stage No -Exudate Amt Medium -Exudate Type Serosanguineous -Wound Margin Distinct, Outline Attached -Granulation Amt None Present (0 %) -Granulation Quality N/A -Slough/Fibrin Yes -Necrosis Amt Small (1-33%) -Necrotic Tissue Type Adherent Slough -Structure Exposed N/A -Texture (Meg-wound Skin Appearance) No Abnormality, Assessed -Moisture (Meg-wound Skin Appearance) Assessed, Weeping,Dry/ Scaly -Color (Meg-wound Skin Appearance) No Abnormality, Assessed -Temperature (Mge-wound Skin No Abnormality Appearance) (Pt Warm) -Tenderness on Palpation (Meg-wound No Skin Appearance) -Ulcer Cleansing Soap and Water -Foul Odor after Cleansing No -Anesthetic Used 5% Lidocaine Gel Lower Limb Edema Present Right Calf (cm) Right Ankle (cm) 03/31/22 11:45 Wound Center by Bekah Gan pt states I went to sit down on walker ad walker moved and fell down on ground. R leg has a wound from fall. incicent happened on 03/25/22 Initialized on 03/31/22 11:45 - END OF NOTE WC - Nurse 2 - General Ulcer CM Notes Start: 03/24/22 11:01 Freq: Status: Active Protocol: Activity Type Activity Date Activity User E-sign Co-sign Detail Recorded Client Recorded Date Recorded By Document 03/24/22 11:17 MW [id number] 03/24/22 11:20 MW Document 03/31/22 12:05 MW [id number] 03/31/22 12:19 MW Document 04/07/22 12:22 MW [id number] 04/07/22 12:37 MW Document 04/21/22 11:34 JF [id number] 04/21/22 11:46 JF 03/24/22 03/31/22 04/07/22 11:17 12:05 12:22 Wound Center Nurse 2 18. R senior cluster -Time 12:15 12:24 -Correct Patient Yes Yes -Correct Side, Site, Position Yes Yes -Correct Procedure Yes Yes -Procedure Performed Yes Yes -Type of Procedure Debridement Debridement -Clinical Debridement Subcutaneous Subcutaneous -Tissue Removed Subcutaneous Subcutaneous -Post Debridement (cm) - Length 3.0 1.7 -Post Debridement (cm) - Width 3.0 2.0 -Post Debridement (cm) - Depth 0.2 0.1 -Total Square (Post) (cm) 9.00 3.40 -Area of Debridement (cm) - Length 3.0 1.7 -Area of Debridement (cm) - Width 3.0 2.0 -Total Square (Area) (cm) 9.00 3.40 -Tunneling No No -Undermining/Tunneling No No -Circular Undermining No No -Wound/Ulcer Outcome Not Healed Not Healed -Ulcer Cleansing Rinsed/ Rinsed/ Irrigated with Irrigated with Saline Saline -Foul Odor after Cleansing No No -Bioengineered Tissue No No -Bleeding Controlled with Pressure Pressure -Treatment Response Procedure Procedure Tolerated Well Tolerated Well -Offloading No No -Debridement - Subq, 1st 20sq cm No No #15 Mid Abdomen -Time 11:17 -Correct Patient Yes -Correct Side, Site, Position Yes -Correct Procedure Yes -Procedure Performed No -Post Debridement (cm) - Length 0 -Post Debridement (cm) - Width 0 -Total Square (Post) (cm) 0 -Wound/Ulcer Outcome Healed- Epithelialized #14 left buttock -Time 11:17 -Correct Patient Yes -Correct Side, Site, Position Yes -Correct Procedure Yes -Procedure Performed No -Post Debridement (cm) - Length 0 -Post Debridement (cm) - Width 0 -Post Debridement (cm) - Depth 0 -Total Square (Post) (cm) 0 -Wound/Ulcer Outcome Healed- Epithelialized 19. left posterior ankle -Time 12:05 12:22 -Correct Patient Yes Yes -Correct Side, Site, Position Yes Yes -Correct Procedure Yes Yes -Procedure Performed Yes Yes -Type of Procedure Debridement Debridement -Clinical Debridement Subcutaneous Subcutaneous -Tissue Removed Subcutaneous Subcutaneous -Post Debridement (cm) - Length 1.2 0.7 -Post Debridement (cm) - Width 3.8 3.0 -Post Debridement (cm) - Depth 0.1 0.1 -Total Square (Post) (cm) 4.56 2.10 -Area of Debridement (cm) - Length 1.2 0.7 -Area of Debridement (cm) - Width 3.8 3.0 -Total Square (Area) (cm) 4.56 2.10 -Tunneling No No -Undermining/Tunneling No No -Circular Undermining No No -Wound/Ulcer Outcome Not Healed Not Healed -Ulcer Cleansing Rinsed/ Rinsed/ Irrigated with Irrigated with Saline Saline -Foul Odor after Cleansing No No -Bioengineered Tissue No No -Bleeding Controlled with Pressure Pressure -Treatment Response Procedure Procedure Tolerated Well Tolerated Well -Offloading No No -Debridement - Subq, 1st 20sq cm Yes Yes Pain Scale: 0-10 Numeric Is Patient Pain Free? Yes Yes Yes 04/21/22 11:34 Wound Center Nurse 2 18. R senior cluster -Time -Correct Patient No -Correct Side, Site, Position No -Correct Procedure No -Procedure Performed No -Type of Procedure -Clinical Debridement -Tissue Removed -Post Debridement (cm) - Length 0 -Post Debridement (cm) - Width 0 -Post Debridement (cm) - Depth 0 -Total Square (Post) (cm) 0 -Area of Debridement (cm) - Length 0 -Area of Debridement (cm) - Width 0 -Total Square (Area) (cm) 0 -Tunneling -Undermining/Tunneling -Circular Undermining -Wound/Ulcer Outcome Healed- Epithelialized -Ulcer Cleansing -Foul Odor after Cleansing -Bioengineered Tissue -Bleeding Controlled with -Treatment Response -Offloading -Debridement - Subq, 1st 20sq cm #15 Mid Abdomen -Time -Correct Patient -Correct Side, Site, Position -Correct Procedure -Procedure Performed -Post Debridement (cm) - Length -Post Debridement (cm) - Width -Total Square (Post) (cm) -Wound/Ulcer Outcome #14 left buttock -Time -Correct Patient -Correct Side, Site, Position -Correct Procedure -Procedure Performed -Post Debridement (cm) - Length -Post Debridement (cm) - Width -Post Debridement (cm) - Depth -Total Square (Post) (cm) -Wound/Ulcer Outcome 19. left posterior ankle -Time 11:42 -Correct Patient Yes -Correct Side, Site, Position Yes -Correct Procedure Yes -Procedure Performed Yes -Type of Procedure Debridement -Clinical Debridement Subcutaneous -Tissue Removed Subcutaneous -Post Debridement (cm) - Length 1.0 -Post Debridement (cm) - Width 3.0 -Post Debridement (cm) - Depth 0.1 -Total Square (Post) (cm) 3.00 -Area of Debridement (cm) - Length 1 -Area of Debridement (cm) - Width 3.0 -Total Square (Area) (cm) 3.0 -Tunneling No -Undermining/Tunneling No -Circular Undermining No -Wound/Ulcer Outcome Not Healed -Ulcer Cleansing Rinsed/ Irrigated with Saline -Foul Odor after Cleansing No -Bioengineered Tissue No -Bleeding Controlled with Pressure -Treatment Response Procedure Tolerated Well -Offloading No -Debridement - Subq, 1st 20sq cm Yes Pain Scale: 0-10 Numeric Is Patient Pain Free? Yes WC - Nurse 3 - General Ulcer D/C NN Start: 03/24/22 11:01 Freq: Status: Active Protocol: Activity Type Activity Date Activity User E-sign Co-sign Detail Recorded Client Recorded Date Recorded By Document 03/24/22 11:20 MW [id number] 03/24/22 11:20 MW Document 03/31/22 12:34 RB [id number] 03/31/22 12:35 RB Document 04/07/22 12:57 RB [id number] 04/07/22 12:58 RB Document 04/21/22 11:49 ML [id number] 04/21/22 11:50 ML 03/24/22 03/31/22 04/07/22 11:20 12:34 12:57 Wound Care Nurse 3 18. R senior cluster -Ulcer Cleansing Wound Cleanser -Primary Dressing Applied C Hydrogel ($), Mepilex Border, Mepilex Border NonAdherent Contact Layer -Other Dressing hydrogel hydrogel -Mepilex Border 1 1 19. left posterior ankle -Ulcer Cleansing Wound Cleanser -Primary Dressing Applied C Hydrogel ($), Mepilex Border, Mepilex Border, NonAdherent NonAdherent Contact Layer Contact Layer -Other Dressing hydrogel -Mepilex Border 1 1 Right -Other norman norman Treatment Response Procedure Procedure Procedure Tolerated Well Tolerated Well Tolerated Well Pain Scale: 0-10 Numeric Is Patient Pain Free? Yes Yes Yes Teaching: Wound Center Discharge Instructions -Person Taught Patient -Teaching Method Discussion -Response to teaching Verbalize understanding WC - Visit Discharge Discharge Condition Stable Stable Stable Ambulatory Status Ambulatory, Ambulatory, Walker Walker Walker Transportation Private Auto Private Auto Private Auto Accompanied by self Medication Reconcilliation completed & No No No provided to patient/care provider Clinical Summary of Care Provided Yes Yes Yes 04/21/22 11:49 Wound Care Nurse 3 18. R senior cluster -Ulcer Cleansing -Primary Dressing Applied -Other Dressing -Mepilex Border 19. left posterior ankle -Ulcer Cleansing Rinsed/ Irrigated with Saline -Primary Dressing Applied Mepilex Border -Other Dressing hydrogel -Mepilex Border 2 Right -Other Treatment Response Pain Scale: 0-10 Numeric Is Patient Pain Free? Yes Teaching: Wound Center Discharge Instructions -Person Taught -Teaching Method -Response to teaching WC - Visit Discharge Discharge Condition Ambulatory Status Transportation Accompanied by Medication Reconcilliation completed & provided to patient/care provider Clinical Summary of Care Provided Additional Wound Wound debrided: left heel Laterality: Left Type of Debridement: Excisional debridement Anesthesia Used: 4% Lidocaine Solution and 5% Lidocaine Gel Depth: Down to and including healthy tissue and in the subcutaneous layer Percentage of wound debrided: 100 Instrument Used: 7mm curette Tissue Removed: Yellow slough, devitalized tissue Severity: Fat Layer Exposed Amount of bleeding with debridement: Mild Bleeding Controlled with: Compression and gauze Patient tolerated procedure: Patient tolerated procedure well Assessment/Plan Assessment/Plan (1) Decubitus ulcer of left buttock, stage 2: CODE(S): L89.322 - Pressure ulcer of left buttock, stage 2 (2) Postoperative wound dehiscence: CODE(S): T81.31XA - Disruption of external operation (surgical) wound, not elsewhere classified, initial encounter QUALIFIERS: Encounter type: subsequent encounter Qualified Code(s): T81.31XD - Disruption of external operation (surgical) wound, not elsewhere classified, subsequent encounter (3) Ulcer of abdomen wall with fat layer exposed: CODE(S): L98.492 - Non-pressure chronic ulcer of skin of other sites with fat layer exposed (4) Obesity: CODE(S): E66.9 - Obesity, unspecified QUALIFIERS: Obesity type: unspecified obesity type Obesity classification: adult class 3 (BMI >= 40) Serious obesity comorbidity presence: without serious comorbidity Body mass index: BMI 50.0-59.9 Qualified Code(s): E66.01 - Morbid (severe) obesity due to excess calories; Z68.43 - Body mass index [BMI] 50.0-59.9, adult (5) Open wound of right lower extremity: CODE(S): S81.801A - Unspecified open wound, right lower leg, initial encounter QUALIFIERS: Encounter type: subsequent encounter Qualified Code(s): S81.801D - Unspecified open wound, right lower leg, subsequent encounter (6) Chronic ulcer of left foot with fat layer exposed: CODE(S): L97.522 - Non-pressure chronic ulcer of other part of left foot with fat layer exposed PLAN: Plan Melanie's right senior wound is healed and left heel ulcer is improving. These were evaluated and debrided today. She has had labs approx. 2 months ago to evaluate her nutrition and for diabetes which nutrition is adequate and A1C was less than 6.0%. Her right senior will be covered with a foam bordered dressing for protection. Her left heel will be treated with hydrogel and adaptic and foam bordered dressing for protection. We discussed offloading of the site which she has been doing and we also encouraged increased protein intake, weight loss and proper cleansing of the ulcer to facilitate healing. She was advised to call if there are any increased odor, pain, drainage or erythema. She will follow up in 2 weeks for wound care.
== END 2022-04-22 23:59 | disposition home or self-care (01) ==
LOC: WC 11:30
PROVIDERS: PCP Family Medicine; Referring Provider Family Medicine; Visit Provider Family Medicine
DX: L97.422 Non-pressure chronic ulcer of left heel and midfoot with fat layer exposed (principal); Z93.2 Ileostomy status; E66.01 Morbid (severe) obesity due to excess calories; Z68.45 Body mass index [BMI] 70 or greater, adult; Z79.01 Long term (current) use of anticoagulants; Z79.82 Long term (current) use of aspirin; Z79.899 Other long term (current) drug therapy
CPT/HCPCS: 11042; 87070; 87075; 87077; 87186; 87205; 99213; G0463

== ENCOUNTER → 2022-04-27 | Outpatient (CLI) | payer MEDICARE, MEDICAID, SELFPAY ==
--- NOTE | 2022-04-27 13:26 | CT_ITS ---
EXAM: CT ANGIOGRAPHY ABDOMEN WITHOUT AND WITH INTRAVENOUS CONTRAST CLINICAL INDICATION: varices/GIB FATTY LIVER, HX-BLOOD CLOTS, VARICES, ILEOSTOMY, FISTULA IN BUTTOCKS REPAIRED TECHNIQUE: Helically acquired angiography images of the abdomen without and with intravenous contrast. This CT exam was performed using one or more of the following dose reduction techniques: automated exposure control, adjustment of the mA and/or kV according to patient size, and/or use of iterative reconstruction technique. This report was created using [employer] report generation technology. MIP reconstructed images were created and reviewed. CONTRAST: IV 100mL Isovue-370 RADIATION DOSE: CTDIvol = 35.24 mGy, DLP = 2027.54 mGy-cm COMPARISON: 04.11.21 FINDINGS: AORTA: No acute findings. Normal caliber abdominal aorta. No dissection. CELIAC TRUNK AND MESENTERIC ARTERIES: No acute findings. No occlusion or significant stenosis. No dissection. RENAL ARTERIES: No acute findings. No occlusion or significant stenosis. No dissection. LOWER THORAX: Unremarkable. Lung bases are clear. No cardiomegaly. No significant pericardial effusion. LIVER: Enlarged liver. GALLBLADDER AND BILE DUCTS: Unremarkable. No calcified gallstones. No gallbladder distention or wall edema. No intra- or extrahepatic biliary ductal dilation. PANCREAS: Unremarkable. No focal cystic or solid mass. SPLEEN: Enlarged spleen. ADRENALS: Unremarkable. No nodules. KIDNEYS AND URETERS: Non obstructive 5 to 10 mm right renal parenchymal stones. Normal renal size and position. STOMACH AND BOWEL: There is a right lower quadrant ostomy noted. No stomach or bowel distention. No focal inflammatory change. INTRAPERITONEAL SPACE: Unremarkable. No ascites or other fluid collection. No free air. BONES/JOINTS: Degenerative findings in the lumbar spine. No suspicious lytic or blastic abnormality. SOFT TISSUES: Unremarkable. No discrete abdominal or pelvic wall hernia. LYMPH NODES: No enlarged lymph nodes. CT/CTA Abdomen W/WO Contrast IMPRESSION: 1. Enlarged spleen. 2. Enlarged liver. Electronically Signed: Hu Leal MD at 14:47 EST ,
== END | disposition home or self-care (01) ==
LOC: CT 13:25
PROVIDERS: PCP Family Medicine; Referring Provider Internal Medicine Gastroenterology; Visit Provider Internal Medicine Gastroenterology
DX: K92.2 Gastrointestinal hemorrhage, unspecified (principal); I86.8 Varicose veins of other specified sites
CPT/HCPCS: 74175; Q9967; A4216

== ENCOUNTER 2022-05-12 13:59 | Inpatient (IN) | payer MEDICARE, MEDICAID, SELFPAY ==
[2022-05-12 14:00] VITALS: BP 128/58; PULSE 115; RESP 14; TEMP 36.6; O2SAT 97; BMI 52.9
[2022-05-12 14:11] VITALS: BP 128/58; PULSE 115; RESP 14; TEMP 36.6; O2SAT 97
[2022-05-12] MEDS: 0.9% Normal Saline 1,000 ML 150 ML IV ×2 (14:50→22:22)
--- NOTE | 2022-05-12 14:54 | EX.ED.DYSGE1 ---
HPI History of Present Illness Chief Complaint: Wound Detail of Chief Complaint: Infected wound left foot and leg Onset/Context/Timing Onset: Days (First noted Sunday and seen on Sunday at wound center.) Context: Sudden Onset Timing: Continuous Quality: Swelling anterior left leg with tenderness, redness, warmth and involvement Location: Left lower extremity Current Severity: Moderate Maximum Severity: Moderate Worsened by: Infection Relieved by: Nothing Associated Symptoms Associated Symptoms: subjective fever Narrative Narrative: Patient is a 46-year-old woman who is a poor informant. Her allergies are noted. Patient has history of peripheral arterial disease, chronic GI bleed, bilateral lower extremity lymphedema, obstructive sleep apnea and morbid obesity who was sent from the wound center. She is on an antibiotic. We will need to review records from the wound center determine what antibiotic she is on. She is allergic to penicillin, cephalosporin and sulfa. Patient denies headache, visual, ocular auditory symptoms. Patient denies cardiac respiratory symptoms. She denies GI or symptoms. She apparently had a culture from the wound posterior medial left foot. This is an area of skin breakdown and in my opinion is of no value. This is not a deep wound culture. Prior similar symptoms: Yes Recent Illness/Hospitalization: Yes [facility] Medical History Back pain CPAP (continuous positive airway pressure) dependence Current use of prison anticoagulation Depression Diverticulitis Easy bruising Excessive bleeding Gastric reflux History of blood transfusion History of Clostridium difficile infection History of DVT (deep vein thrombosis) History of edema History of GI bleed History of IBS Ileostomy in place Irritable bowel syndrome (IBS) Leg cramps Low iron Non-smoker Post-menopausal Pulmonary embolism Restless legs Shortness of breath on exertion Sleep apnea Walker as 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 Wears glasses Home Medications calcium carbonate 600 mg-vitamin D3 12.5 mcg (500 unit) capsule 1 tab PO BID SUPPLEMENT 12/13/17 [History Last Taken 12/04/21] ferrous sulfate 325 mg (65 mg iron) tablet 325 mg PO BID anemia 12/13/17 [History Last Taken 12/04/21] melatonin 3 mg tablet 15 mg PO QHS sleep 12/13/17 [History Last Taken 12/04/21] zinc sulfate 50 mg zinc (220 mg) capsule 220 mg PO QHS SUPPLEMENT 12/13/17 [History Last Taken 12/04/21] acetaminophen 500 mg tablet 1,000 mg PO Q6H PRN PRN Pain 12/21/17 [History Last Taken 04/03/22 08:15] ascorbic acid (vitamin C) 1,000 mg tablet (Vitamin C) 2,000 mg PO BID SUPPLEMENT 12/21/17 [History Last Taken 04/02/22] ergocalciferol (vitamin D2) 1,250 mcg (50,000 unit) capsule (Vitamin D2) 50,000 unit PO Q7D supplement 12/21/17 [History Last Taken 12/04/21] magnesium oxide 400 mg PO BID SUPPLEMENT 12/21/17 [History Last Taken 12/04/21] aspirin 81 mg chewable tablet 2 tab PO DAILY@0800 04/22/20 [History Last Taken 12/04/21] Bacillus coagulans 10 billion cell capsule,delayed release (Probiotic (B. coagulans)) 1 cell PO DAILY 07/08/21 [History Last Taken 04/02/22] duloxetine 60 mg capsule,delayed release sprinkle 60 mg PO QHS 07/08/21 [History Last Taken 12/04/21] metoclopramide HCl 5 mg tablet (Reglan) 10 mg PO QHS 07/08/21 [History Last Taken 12/04/21] diphenoxylate-atropine 2.5 mg-0.025 mg tablet (Lomotil) 2 tab PO 4X/DAY 07/27/21 [History Last Taken 12/04/21] diclofenac sodium 1 % topical gel 1 g topical PRN PRN pain 12/05/21 [History Last Taken 12/04/21] omeprazole 40 mg capsule,delayed release 1 cap PO DAILY 03/06/22 [History Last Taken 04/03/22 05:00] tramadol 50 mg tablet 50 mg PO Q6H PRN Pain 03/06/22 [History Last Taken Unknown] erythromycin 500 mg tablet,delayed release 500 mg PO BID 05/12/22 [History Last Taken Unknown] warfarin 2 mg tablet 2 mg PO DAILY 05/12/22 [History Last Taken Unknown] Allergy/AdvReac Type Severity Reaction Status Date / Time latex Allergy Rash Verified 05/12/22 14:00 amoxicillin AdvReac Nausea/Vom/ Verified 05/12/22 14:00 Diarrhea cephalexin AdvReac Nausea/Vom/ Verified 05/12/22 14:00 Diarrhea naproxen AdvReac Nausea/Vom/ Verified 05/12/22 14:00 Diarrhea sulfamethoxazole AdvReac Nausea/Vom/ Verified 05/12/22 14:00 [From Bactrim] Diarrhea trimethoprim [From Bactrim] AdvReac Nausea/Vom/ Verified 05/12/22 14:00 Diarrhea Surgical History H/O colectomy History of colonoscopy History of rectal surgery Hx of foot surgery Ileostomy status Social History Smoking Status: Smoker, status unknown tobacco type: cigarettes alcohol intake: never substance use type: does not use ROS ROS ED Constitutional Constitutional ED: Reports fever(s) and subjective; Denies chills, sweats or weight loss Eyes Eyes: Denies blurry vision, change in vision or diplopia ENT ENT ED: Denies ear pain, rhinorrhea or sore throat Cardiovascular Cardiovascular: Denies chest pain, orthopnea, palpitations, paroxysmal nocturnal dyspnea or racing heartbeat Respiratory/Chest Respiratory/Chest: Denies cough, dyspnea, dyspnea on exertion, orthopnea or paroxysmal nocturnal dyspnea Gastrointestinal Gastrointestinal: Denies abdominal pain, constipation, diarrhea, melena, nausea or vomiting Genitourinary Genitourinary ED: Denies dysuria, hematuria or urinary frequency Musculoskeletal Musculoskeletal: Reports other Details: Pain anterior mid left leg ; Denies arthralgias, back pain, myalgias or neck pain Integumentary Reports rash Neurologic Neurologic: Denies paresthesias or weakness Endocrine Endocrinology: Denies cold intolerance or heat intolerance Hematologic/Lymphatic Hematologic/Lymphatic: Reports easy bruising and other Details: Patient is on anticoagulant for recurrent DVT. EXAM Physical Exam Const Vital Signs: 05/12/22 14:00 05/12/22 14:11 Temperature 98 F 98 F Temperature Source Temporal Temporal Pulse Rate 115 H 115 H Respiratory Rate 14 14 Blood Pressure 128/58 H 128/58 H Blood Pressure Mean 81 81 Pulse Ox 97 97 Oxygen Delivery Method Room Air Room Air Positive well nourished, well developed and obese General Appearance ED: well developed and NAD; Negative for cyanotic or diaphoretic Nutritional Appearance: obese HEENT Reports moist mucous membranes HEENT Narrative: Head is atraumatic normocephalic. Ears are normal. Nares are patent. Posterior pharynx out erythema or exudate. Eyes PERRL and EOMs intact bilaterally General Eye ED: Negative for pale conjunctiva or scleral icterus Neck no lymphadenopathy, supple and no JVD Chest Wall inspection of chest normal and palpation of chest normal Resp normal respiratory effort and clear to auscultation bilaterally Cardio regular rhythm, S1 normal heart sound, S2 normal heart sound and no murmurs Rate: tachycardic GI normal to inspection, nondistended, normoactive bowel sounds, non-tender and non-distended; Negative for hepatosplenomegaly Back/Spine no CVA tenderness Extremity Negative for normal to inspection Extremity Narrative: Toes are discolored left foot. There is an area of erythema warmth and question fluctuance mid anterior right leg. There is surrounding erythema with warmth. There is no true induration. There is no popliteal angle lymphadenopathy. There is no lymphangitis. There is discoloration of the foot. The margins were outlined. DP and PT pulses were not palpable. Capillary refill slightly delayed in her toes. She does have stigmata of peripheral arterial disease. Neuro oriented x3 and CN's II-XII intact bilaterally Sensorium / Orientation: alert Psych mental status grossly normal Skin No no rashes or lesions noted Rashes: rashes noted Wounds: wounds noted other Inferior to the medial malleolus. There is breakdown of skin. There is erythema. There is no obvious drainage at this time. MDM MDM MDM Narrative Medical decision making narrative: Wound center note for the and today authored by Dr. Karly Thompson was reviewed. Patient is presently on erythromycin. She was prescribed erythromycin 500 mg starting on May 10. Per the note the cellulitis has gotten worse. Patient has evidence of cellulitis that is failed outpatient therapy. Sepsis work-up was initiated. Based on her allergies we will treat with a beta-lactam since her reported allergy is nausea, vomiting diarrhea. These are not allergies. She also reports the same for Bactrim, which is not an allergy. Since there is fluctuance over the anterior left leg the area was aspirated. Please read procedure note Lab Data Attestation: I reviewed the patient's lab results. Lab results narrative: White count is normal. There is a slight shift with no bandemia. There is mild anemia. Indices are normal. Basic metabolic panel does not elevated creatinine of 1.24 with a GFR of 50. Labs: Laboratory Results - last 24 hr 05/12/22 05/12/22 05/12/22 14:45 14:45 14:45 WBC 7.8 RBC 3.90 L Hgb 11.7 L Hct 36.0 L MCV 92.3 MCH 30.0 MCHC 32.5 RDW Std Deviation 47.7 H RDW Coeff of Julissa 14.0 Plt Count 143 L MPV 11.1 Immature Gran % (Auto) 0.500 Neut % (Auto) 81.9 H Lymph % (Auto) 11.2 L [place] % (Auto) 5.6 Eos % (Auto) 0.5 Baso % (Auto) 0.3 Absolute Neuts (auto) 6.4 Absolute Lymphs (auto) 0.87 Nucleated RBC % 0 Sodium 138 Potassium 3.8 Chloride 104 Carbon Dioxide 25.0 Anion Gap 9 BUN 20 H Creatinine 1.24 H Estim Creat Clear Calc 55.71 Est GFR (MDRD) Af Amer 60 Est GFR (MDRD) Non-Af 50 L BUN/Creatinine Ratio 16.1 Glucose 99 Lactic Acid 1.5 Calcium 8.7 Procedures Other Procedures Procedure(s): The anterior left leg was prepped with ChloraPrep. 5 cc of brown blood was aspirated from the area of fluctuance. This was sent for cell count and gram stain with culture. Patient be admitted to the hospital. Discharge Plan Triage Chief Complaint: Wound ED Provider: Braulio Nieves Dx/Rx/DC Orders Clinical Impression: Cellulitis of left lower extremity, Hematoma of left lower leg, Anticoagulant long-term use, Elevated serum creatinine Prescriptions: No Action diphenoxylate-atropine [Lomotil] 2.5-0.025 mg tablet 2 tab PO 4X/DAY melatonin 3 MG tablet 15 mg PO QHS zinc sulfate 220 MG capsule 220 mg PO QHS calcium carbonate-vitamin D3 1 EACH capsule 1 tab PO BID ferrous sulfate 325 MG tablet 325 mg PO BID ergocalciferol (vitamin D2) [Vitamin D2] 50,000 UNIT capsule 50,000 unit PO Q7D ascorbic acid (vitamin C) [Vitamin C] 1,000 MG tablet 2,000 mg PO BID magnesium oxide 400 MG tablet 400 mg PO BID acetaminophen 500 MG tablet 1,000 mg PO Q6H PRN PRN (Reason: Pain) aspirin 81 MG tablet,chewable 2 tab PO DAILY@0800 Rx Instructions: LAST DOSE 03/03/22 FOR EGD ON 03/07/22 metoclopramide HCl [Reglan] 5 mg Tablet 10 mg PO QHS Probiotic (B. coagulans) 10 billion cell Capsule,Delayed Release(Dr/Ec) 1 cell PO DAILY duloxetine 60 mg Capsule, Delayed Rel Sprinkle 60 mg PO QHS diclofenac sodium 1 % Gel 1 g TOPICAL PRN PRN (Reason: pain) tramadol 50 mg Tablet 50 mg PO Q6H PRN (Reason: Pain) omeprazole 40 MG capsule,delayed release(DR/EC) 1 cap PO DAILY erythromycin 500 mg tablet,delayed release (DR/EC) 500 mg PO BID Label Comments: TAKE 1 BY MOUTH TWICE DAILY FOR 7 DAYS warfarin 2 mg tablet 2 mg PO DAILY Label Comments: TAKE 1 TABLET BY MOUTH ONCE DAILY OR DIRECTED Primary Care Provider: Karly Bose Referrals: Karly Bose DO [Primary Care Provider] - Disposition Disposition: Acute Care Hospital [facility]
[2022-05-12 14:59] LABS: Absolute Lymphocyte Count 0.87 X10^3/uL (0.83-4.51); Absolute Neutrophil Count 6.4 X10^3/uL (2.0-7.7); Basophil# 0.02 X10^3/uL; Basophil% 0.3 % (0-1); Eosinophil# 0.04 X10^3/uL; Eosinophils% 0.5 % (0-5); Hemoglobin 11.7 g/dL (12.0-15.0); Lymphocyte # 0.87 X10^3/ul (0.83-4.51); Lymphocyte % 11.2 % (19-41); Mean Corp Hgb Conc 32.5 g/dL (32-36); Mean Corpuscular Volume 92.3 fL (81-99); Mean Platelet Vol. 11.1 fl (6.2-12.0); Monocyte# 0.44 X10^3/uL; Monocyte% 5.6 % (0-10); NRBC Flagged by Analyzer 0 % (0-5); Neutrophil # 6.39 X10^3/uL (2.7-7.7); Neutrophil % 81.9 % (47-70); Platelet Count 143 K/mm3 (150-450); RBC Distribution Width SD 47.7 fl (35.1-43.9); White Blood Count 7.8 K/mm3 (4.4-11.0)
[2022-05-12 15:12] LABS: Anion Gap 9 (5-15); BUN 20 mg/dL (7-18); BUN/Creat Ratio 16.1 RATIO (10-20); Calcium,Total 8.7 mg/dL (8.5-10.1); Chloride 104 mmol/L (98-107); Creatinine, Serum 1.24 mg/dL (0.55-1.02); EST Glomerular Filtration Rate 50 mL/min (>60); Est Glom Filt Rate - Afr Amer 60 mL/min (>60); Estimated Creatinine Clearance 55.71 ml/min; Glucose 99 mg/dL (74-106); Potassium 3.8 mmol/L (3.5-5.1); Sodium Level 138 mmol/L (136-145)
[2022-05-12 15:50] LABS: Lactic Acid 1.5 mmol/L (0.4-1.9)
[2022-05-12 16:21] VITALS: BP 132/71; PULSE 94; RESP 15; TEMP 36.8; O2SAT 96
[2022-05-12 16:26] LABS: International Normalized Ratio 1.8; Prothrombin Time (Protime)PT. 20.4 SECONDS (11.7-14.9)
--- NOTE | 2022-05-12 16:26 | PCM.HP.STD ---
HPI - General General Date of Admission: 05/12/22 Date of Service: 05/12/22 Chief Complaint: Left lower extremity swelling, tenderness [facility] Narrative PUSHPA ORELLANA, is a 46 F who presents to the emergency room at [facility] after being sent in from the wound care center at [facility] due to increased swelling and redness of her left lower leg. 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 Last week she had cultures obtained and a couple of days ago she was placed on erythromycin by the wound care center. Patient also has a small eschared area on the lateral aspect of the left heel. I talked with the wound care physician by phone today, she stated she was not concerned about the wound on the patient's left heel. CBC that was obtained by the emergency room was unremarkable, patient's INR was 1.8, creatinine was 1.24 and BUN was 20. The emergency room physician performed an aspiration of the ecchymotic area over the patient's left senior, he aspirated approximately 2 to 3 cc of isra blood, the area then drained bloody fluid. Patient again denied any trauma to the left lower leg. At the time of this dictation, I requested that the emergency room obtain a venous duplex scan of the left leg because the patient's INR subtherapeutic. Patient will be placed into observation status on MedSurg 3 for cellulitis of the left lower leg, I will place her on IV Rocephin and she will be reevaluated tomorrow. [facility] Medical History Back pain CPAP (continuous positive airway pressure) dependence Current use of longterm anticoagulation Depression Diverticulitis Easy bruising Excessive bleeding Gastric reflux History of blood transfusion History of Clostridium difficile infection History of DVT (deep vein thrombosis) History of edema History of GI bleed History of IBS Ileostomy in place Irritable bowel syndrome (IBS) Leg cramps Low iron Non-smoker Post-menopausal Pulmonary embolism Restless legs Shortness of breath on exertion Sleep apnea Walker as 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 Wears glasses Home Medications calcium carbonate 600 mg-vitamin D3 12.5 mcg (500 unit) capsule 1 tab PO BID SUPPLEMENT 12/13/17 [History Last Taken 05/11/22] ferrous sulfate 325 mg (65 mg iron) tablet 325 mg PO BID anemia 12/13/17 [History Last Taken 05/11/22] zinc sulfate 50 mg zinc (220 mg) capsule 220 mg PO QHS SUPPLEMENT 12/13/17 [History Last Taken 05/11/22] acetaminophen 500 mg tablet 1,000 mg PO Q6H PRN Pain 12/21/17 [History Last Taken 04/03/22 08:15] ascorbic acid (vitamin C) 1,000 mg tablet (Vitamin C) 3,000 mg PO BID SUPPLEMENT 12/21/17 [History Last Taken 05/11/22] ergocalciferol (vitamin D2) 1,250 mcg (50,000 unit) capsule (Vitamin D2) 50,000 unit PO MO supplement 12/21/17 [History Last Taken 05/08/22] magnesium oxide 400 mg PO BID SUPPLEMENT 12/21/17 [History Last Taken 05/11/22] aspirin 81 mg chewable tablet 2 tab PO DAILY HEART HEALTH 04/22/20 [History Last Taken 05/11/22] Bacillus coagulans 10 billion cell capsule,delayed release (Probiotic (B. coagulans)) 1 cell PO DAILY GUT HEALTH 07/08/21 [History Last Taken 05/11/22] duloxetine 60 mg capsule,delayed release sprinkle 60 mg PO QHS DEPRESSION 07/08/21 [History Last Taken 05/11/22] diphenoxylate-atropine 2.5 mg-0.025 mg tablet (Lomotil) 2 tab PO 4X/DAY IBS 07/27/21 [History Last Taken 05/11/22] diclofenac sodium 1 % topical gel 2 - 4 g topical UD PAIN 12/05/21 [History Last Taken 05/11/22] tramadol 50 mg tablet 50 - 100 mg PO Q6H PRN Pain 03/06/22 [History Last Taken 05/11/22] cholecalciferol (vitamin D3) 50 mcg (2,000 unit) tablet 6,000 unit PO BID SUPPLEMENT 05/12/22 [History Last Taken 05/11/22] erythromycin 500 mg tablet,delayed release 500 mg PO BID 05/12/22 [History Last Taken 05/11/22] melatonin 10 mg tablet 10 mg PO QHS 05/12/22 [History Last Taken 05/11/22] melatonin 5 mg tablet 5 mg PO QHS sleep 05/12/22 [History Last Taken 05/11/22] metoclopramide HCl 10 mg tablet 10 mg PO QHS 05/12/22 [History Last Taken 05/11/22] omeprazole 20 mg capsule,delayed release 40 mg PO 0500 ACID REFLUX 05/12/22 [History Last Taken 05/11/22 05:00] warfarin 2 mg tablet 2 mg PO QHS BLOOD THINNER 05/12/22 [History Last Taken 05/11/22] Allergy/AdvReac Type Severity Reaction Status Date / Time latex Allergy Rash Verified 05/12/22 14:00 amoxicillin AdvReac Nausea/Vom/ Verified 05/12/22 14:00 Diarrhea cephalexin AdvReac Nausea/Vom/ Verified 05/12/22 14:00 Diarrhea naproxen AdvReac Nausea/Vom/ Verified 05/12/22 14:00 Diarrhea sulfamethoxazole AdvReac Nausea/Vom/ Verified 05/12/22 14:00 [From Bactrim] Diarrhea trimethoprim [From Bactrim] AdvReac Nausea/Vom/ Verified 05/12/22 14:00 Diarrhea Surgical History H/O colectomy History of colonoscopy History of rectal surgery Hx of foot surgery Ileostomy status Social History Smoking Status: Smoker, status unknown tobacco type: cigarettes alcohol intake: never substance use type: does not use ROS Constitutional Constitutional: Denies anorexia, change in weight, chills, fever(s), malaise, night sweats or weakness Eyes Eyes: Denies blurry vision, change in vision, discharge from eye(s) or eye pain Cardiovascular Cardiovascular: Denies chest pain, claudication, edema, lightheadedness, orthopnea or palpitations Respiratory/Chest Respiratory/Chest: Denies cough, hemoptysis, productive cough, shortness of breath at rest or shortness of breath with exertion Gastrointestinal Gastrointestinal: Denies abdominal pain, constipation, diarrhea, hematemesis, hematochezia, melena, nausea or vomiting Genitourinary Genitourinary: Denies dysuria, hematuria, urinary frequency, urinary hesitancy, urinary incontinence or urinary urgency Musculoskeletal Musculoskeletal: Reports joint pain; Denies back pain, joint stiffness, joint swelling, myalgias or neck pain Neurologic Neurologic: Denies abnormal gait, abnormal speech, dizziness, focal weakness, headache(s), loss of vision, numbness, other visual disturbances, paresthesias, syncope or tingling Psychiatric Psychiatric: Reports depression; Denies anxiety, cognitive impairment, irritability, mood swings or suicidal ideation Endocrine Endocrinology: Denies change in body appearance, cold intolerance, excessive sweating, heat intolerance, polydipsia or polyuria Hematologic/Lymphatic Hematologic/Lymphatic: Denies none, anemia, easy bleeding, easy bruising or lymphadenopathy Allergic/Immunologic Allergic/Immunologic: Denies rhinitis, urticaria, eczemia or asthma Vital Signs Vital Signs Vital Signs: 05/12/22 14:00 05/12/22 14:11 05/12/22 16:21 Temperature 98 F 98 F 98.2 F Temperature Source Temporal Temporal Oral Pulse Rate 115 H 115 H 94 Respiratory Rate 14 14 15 Blood Pressure 128/58 H 128/58 H 132/71 H Blood Pressure Mean 81 81 91 Pulse Ox 97 97 96 Oxygen Delivery Method Room Air Room Air Room Air Weight Weight: 153.314 kg Body Mass Index (BMI) 52.9 Physical Exam Narrative Patient is morbidly obese Const alert, oriented x3, no apparent distress and healthy appearing General Appearance: cooperative, well kempt and well developed Orientation / Consciousness: awake, oriented to person, oriented to place and oriented to time HEENT normocephalic, head/scalp atraumatic and moist oral mucous membranes Eyes PERRL, EOMs intact bilaterally and conjunctivae normal Neck supple, no JVD, thyroid normal and no carotid bruits General: trachea midline Resp normal respiratory effort and clear to auscultation bilaterally Auscultation: Negative for rales, rhonchi or wheezes Cardio regular rate, regular rhythm, S1 normal heart sound, S2 normal heart sound, no murmurs, no rub and no gallops GI normal to inspection, nondistended, normoactive bowel sounds, soft to palpation, non-tender and non-distended Extremity Extremity Narrative: Patient has lymphedematous changes of the right lower leg noted, left lower leg appears to be warmer to the touch than the right lower leg, there is more edema present in the left lower leg, there is also an ecchymotic area on the anterior aspect of the left lower leg. Examining the left ankle area, medially there is a small crease noted to be present, there is no drainage noted from the area in the area looks mildly excoriated but not draining any purulent material. There is also an eschar noted to the patient's left lateral ankle that is approximately 1 cm in diameter, this does not appear to be draining any material and does not appear to be reddened. Skin Skin Narrative: Patient has an ecchymotic area over her left senior area that several centimeters in width and length. Neuro oriented x3, CN's II-XII intact bilaterally, moves all extremities, no focal motor deficits and no sensory deficits noted Sensorium / Orientation: awake, alert, oriented to person, oriented to place and oriented to time Speech: speech normal Psych affect normal Results Lab / Micro Data Result Diagrams: 05/12/22 14:45 05/12/22 14:45 Labs: Laboratory Results - last 24 hr 05/12/22 14:45: WBC 7.8, RBC 3.90 L, Hgb 11.7 L, Hct 36.0 L, MCV 92.3, MCH 30.0, MCHC 32.5, RDW Std Deviation 47.7 H, RDW Coeff of Julissa 14.0, Plt Count 143 L, MPV 11.1, Immature Gran % (Auto) 0.500, Neut % (Auto) 81.9 H, Lymph % (Auto) 11.2 L, [place] % (Auto) 5.6, Eos % (Auto) 0.5, Baso % (Auto) 0.3, Absolute Neuts (auto) 6.4, Absolute Lymphs (auto) 0.87, Nucleated RBC % 0 05/12/22 14:45: Sodium 138, Potassium 3.8, Chloride 104, Carbon Dioxide 25.0, Anion Gap 9, BUN 20 H, Creatinine 1.24 H, Estim Creat Clear Calc 55.71, Est GFR (MDRD) Af Amer 60, Est GFR (MDRD) Non-Af 50 L, BUN/Creatinine Ratio 16.1, Glucose 99, Calcium 8.7 05/12/22 14:45: Lactic Acid 1.5 Assessment & Plan Assessment/Plan (1) Cellulitis of left lower extremity: PLAN: Plan 1. Cellulitis of the left lower leg-patient will be placed into observation status on MedSurg, she will be placed on IV Rocephin, she will be reevaluated tomorrow. #2 hematoma of the left anterior lower leg-unsure how extensive this is, patient cannot go off her Coumadin due to a past history of multiple VTE's, no evidence of compartmental syndrome is noted in the left lower leg #3 chronic use of anticoagulants due to hypercoagulable state-patient's INR was 1.8, she will need her INR monitored, she will need additional Coumadin tonight, I have asked the emergency room to obtain a venous duplex of the left leg to make sure the patient does not have a DVT. #4 morbid obesity-complicates care, management, recovery, and prognosis #5 chronic depression-patient will remain on Cymbalta #6 osteoarthritis of the hips-patient uses a walker when ambulating due to severe hip arthritis Total clinical time spent by myself addressing the patient's medical issues, reviewing all of her data, and collaborating with patient's care team: 55 minutes Charges/Coding Visit Charges Inpatient E&M: 48805 Init Hosp L2
--- NOTE | 2022-05-12 16:54 | US_ITS ---
STUDY: VENOUS DOPPLER ULTRASOUND - LEFT LOWER EXTREMITY REASON FOR EXAM: Female, 46 years old. LT CALF PAIN - WOUND AND CELLULITIS -LT CALF TECHNIQUE: Ultrasound evaluation of the deep vein system to include seay-scale imaging and compression was performed. Seay-scale imaging and Doppler sonographic evaluation, including duplex spectral analysis and qualitative color flow sonography, was performed. COMPARISON: None. FINDINGS: Common Femoral Vein: Normal compression, spontaneity and augmentation. Normal color Doppler. Common Femoral Vein/Greater Saphenous Junction: Normal compression, spontaneity and augmentation. Normal color Doppler. Deep Femoral Vein: Normal compression, spontaneity and augmentation. Normal color Doppler. Femoral Proximal: Normal compression, spontaneity and augmentation. Normal color Doppler. Femoral Middle: Normal compression, spontaneity and augmentation. Normal color Doppler. Femoral Distal: Normal compression, spontaneity and augmentation. Normal color Doppler. Popliteal Vein: Normal compression, spontaneity and augmentation. Normal color Doppler. Limited study due of the peroneal and posterior tibial veins due to patient''s complaint of pain. US/Venous Duplex Imag/Limited/Uni IMPRESSION: Limited study of the posterior tibial and peroneal veins No definitive evidence for deep venous thrombosis. Electronically Signed: Moises Welch MD at 17:41 EST ,
[2022-05-12 17:40] VITALS: BMI 51.0
[2022-05-12 17:50] VITALS: BP 121/67; PULSE 97; RESP 16; TEMP 36.9; O2SAT 98
[2022-05-12] MEDS: traMADol 50 MG Tablet PO (19:44)
[2022-05-12] MEDS: Ceftriaxone 1 GM/50 ML BAG IV (20:28)
[2022-05-12] MEDS: DULoxetine Hcl 60 MG Capsule PO (22:25)
[2022-05-12] MEDS: MELATONIN 10 MG TABLET PO (22:25)
[2022-05-12] MEDS: Metoclopramide 10 MG Tablet PO (22:25)
[2022-05-12 23:00] VITALS: BP 113/69; PULSE 100; RESP 16; TEMP 36.6; O2SAT 99
[2022-05-12] MEDS: Acetaminophen 500 MG Tablet 1000 MG PO (23:51)
[2022-05-13] MEDS: traMADol 50 MG Tablet PO ×4 (02:29→23:10)
[2022-05-13] MEDS: Pantoprazole Sodium 40 MG Tablet PO (04:27)
[2022-05-13] MEDS: 0.9% Normal Saline 1,000 ML 150 ML IV ×3 (04:28→22:02)
[2022-05-13 04:33] VITALS: BP 120/58; PULSE 87; RESP 16; TEMP 36.5; O2SAT 97
[2022-05-13 07:29] LABS: Absolute Lymphocyte Count 0.84 X10^3/uL (0.83-4.51); Absolute Neutrophil Count 3.5 X10^3/uL (2.0-7.7); Basophil# 0.01 X10^3/uL; Basophil% 0.2 % (0-1); Eosinophil# 0.07 X10^3/uL; Eosinophils% 1.4 % (0-5); Hematocrit 31.7 % (37-47); Hemoglobin 10.1 g/dL (12.0-15.0); Lymphocyte # 0.84 X10^3/ul (0.83-4.51); Lymphocyte % 16.9 % (19-41); Mean Corp Hgb Conc 31.9 g/dL (32-36); Mean Corpuscular Hgb 30.1 pg (27.0-32.0); Mean Corpuscular Volume 94.3 fL (81-99); Mean Platelet Vol. 10.9 fl (6.2-12.0); Monocyte# 0.51 X10^3/uL; Monocyte% 10.2 % (0-10); NRBC Flagged by Analyzer 0 % (0-5); Neutrophil # 3.53 X10^3/uL (2.7-7.7); Neutrophil % 70.9 % (47-70); Platelet Count 116 K/mm3 (150-450); RBC Distribution Width CV 13.9 % (11.6-14.6); Red Blood Count 3.36 M/mm3 (4.2-5.4)
[2022-05-13 07:58] LABS: Anion Gap 8 (5-15); BUN 19 mg/dL (7-18); BUN/Creat Ratio 19.8 RATIO (10-20); Calcium,Total 8.3 mg/dL (8.5-10.1); Chloride 112 mmol/L (98-107); Creatinine, Serum 0.96 mg/dL (0.55-1.02); EST Glomerular Filtration Rate 67 mL/min (>60); Est Glom Filt Rate - Afr Amer 81 mL/min (>60); Estimated Creatinine Clearance 71.96 ml/min; Glucose 93 mg/dL (74-106); Sodium Level 143 mmol/L (136-145)
--- NOTE | 2022-05-13 08:03 | PN.HOSP_ITS ---
Subjective Subjective Leg still red. Objective Data Objective Data Vital Signs: Vital Signs Temp Pulse Resp BP Pulse Ox O2 Del Method 36.5 C L 87 16 120/58 L 97 Room Air 05/13/22 04:33 05/13/22 04:33 05/13/22 04:33 05/13/22 04:33 05/13/22 04:33 05/13/22 04:33 Oxygen Delivery Method Room Air Weight: 147.69 kg Body Mass Index (BMI) 51.0 Intake & Output: Intake and Output for Last 24 Hours 05/11/22 05/12/22 05/13/22 23:59 23:59 23:59 Intake Total 2502 / 2502 915 / 915 Output Total 150 / 150 700 / 700 Balance 2352 / 2352 215 / 215 Lab / Micro Data Result Diagrams: 05/13/22 07:02 05/13/22 07:02 Labs: Laboratory Results - last 24 hr 05/12/22 14:45: WBC 7.8, RBC 3.90 L, Hgb 11.7 L, Hct 36.0 L, MCV 92.3, MCH 30.0, MCHC 32.5, RDW Std Deviation 47.7 H, RDW Coeff of Julissa 14.0, Plt Count 143 L, MPV 11.1, Immature Gran % (Auto) 0.500, Neut % (Auto) 81.9 H, Lymph % (Auto) 11.2 L, [place] % (Auto) 5.6, Eos % (Auto) 0.5, Baso % (Auto) 0.3, Absolute Neuts (auto) 6.4, Absolute Lymphs (auto) 0.87, Nucleated RBC % 0 05/12/22 14:45: Sodium 138, Potassium 3.8, Chloride 104, Carbon Dioxide 25.0, Anion Gap 9, BUN 20 H, Creatinine 1.24 H, Estim Creat Clear Calc 55.71, Est GFR (MDRD) Af Amer 60, Est GFR (MDRD) Non-Af 50 L, BUN/Creatinine Ratio 16.1, Glucose 99, Calcium 8.7 05/12/22 14:45: Lactic Acid 1.5 05/12/22 15:56: Fluid Source Cancelled, Fluid Color Cancelled, Fluid Appearance Cancelled, Fluid WBC Cancelled, Fluid RBC Cancelled, Fluid Tot Cell Count Cancelled, Fld Polynuclear WBCs # Cancelled, Fld Polynuclear WBCs % Cancelled, Fluid Mononuclear WBCs Cancelled, Fld Mononuclear WBCs % Cancelled, Fluid Neutrophils Cancelled, Fluid Lymphocytes Cancelled, Fluid Monocytes Cancelled, Fluid Plasma Cells Cancelled, Fluid Macrophages Cancelled, Fld Mesothelial Cells Cancelled, Fluid Other Cells Cancelled, Fl Pathologist Comment Cancelled, Fluid Comment 2 Cancelled 05/12/22 16:13: PT 20.4 H, INR 1.8 05/13/22 07:02: WBC 5.0, RBC 3.36 L, Hgb 10.1 L, Hct 31.7 L, MCV 94.3, MCH 30.1, MCHC 31.9 L, RDW Std Deviation 48.0 H, RDW Coeff of Julissa 13.9, Plt Count 116 L, MPV 10.9, Immature Gran % (Auto) 0.400, Neut % (Auto) 70.9 H, Lymph % (Auto) 16.9 L, [place] % (Auto) 10.2 H, Eos % (Auto) 1.4, Baso % (Auto) 0.2, Absolute Neuts (auto) 3.5, Absolute Lymphs (auto) 0.84, Nucleated RBC % 0 05/13/22 07:02: Sodium 143, Potassium 4.0, Chloride 112 H, Carbon Dioxide 23.0, Anion Gap 8, BUN 19 H, Creatinine 0.96, Estim Creat Clear Calc 71.96, Est GFR (MDRD) Af Amer 81, Est GFR (MDRD) Non-Af 67, BUN/Creatinine Ratio 19.8, Glucose 93, Calcium 8.3 L Radiography Diagnostic Testing: Radiology Impression Venous Duplex 05/12/22 16:54 IMPRESSION: Limited study of the posterior tibial and peroneal veins No definitive evidence for deep venous thrombosis. Electronically Signed: Moises Welch MD at 17:41 EST , Physical Exam Const alert and no apparent distress Extremity Extremity Narrative: marked erythema of left leg from knee to foot. no induration. no obvious opening on left leg. venous stasis changes in RLE. Assessment & Plan Assessment/Plan (1) Cellulitis of left lower extremity: PLAN: no change. on CTX start vancomycin check CT for deeper infections. (2) Hematoma of left lower leg: PLAN: Monitor. PLAN: Plan Chronic conditions: * VTE: continue warfarin. Duplex negative. * morbid obesity-complicates care, management, recovery, and prognosischronic depression-patient will remain on Cymbalta * osteoarthritis of the hips-patient uses a walker when ambulating due to severe hip arthritis Charges/Coding Visit Charges Inpatient E&M: 67332 Subs Hosp L2
[2022-05-13 08:50] LABS: Prothrombin Time (Protime)PT. 21.9 SECONDS (11.7-14.9)
[2022-05-13 09:25] VITALS: BP 121/53; PULSE 98; RESP 18; TEMP 36.7; O2SAT 99
[2022-05-13] MEDS: Ceftriaxone 1 GM/50 ML BAG IV (10:57)
[2022-05-13] MEDS: Acetaminophen 500 MG Tablet 1000 MG PO ×2 (13:07→20:46)
--- NOTE | 2022-05-13 13:59 | CT_ITS ---
STUDY: CT - LEFT TIBIA AND FIBULA REASON FOR EXAM: Female, 46 years old. left leg cellulitis knee through foot RADIATION DOSAGE (If Supplied By Facility): CTDIvol = ( 15.35 ) mGy, DLP = ( 848.83 ) mGycm TECHNIQUE: Transaxial CT imaging of the lower extremity was performed without. Sagittal and coronal images were reconstructed. Individualized dose optimization techniques were used for this CT. COMPARISON: None. FINDINGS: No visualized acute fractures of the tibia or fibula or ankle or foot. Chronic posttraumatic or postsurgical deformity and ankylosis of the tibiotalar articulation, talus, and talocalcaneal articulation. Moderate secondary osteoarthritis is also present. Small to moderate size cortical osteophytes at the anterior and posterior aspects of the ankle joint and posterior cortex of the lateral malleolus. The bony structures of the ankle and foot are diffusely demineralized. Mild to moderate narrowing of the first through fourth TMT articulations with secondary osteoarthritis. Mild to moderate subcutaneous edema is present on the fibular side of the mid to lower aspect of the leg down to the ankle and foot where the edema is circumferential. The scan is also thickened in these affected regions. No abscesses are present. No subcutaneous air is seen. Multiple varicose veins and soft tissue calcifications are also present throughout the lower leg. There is no evidence of active osteomyelitis. CT/Extremity Lower WITH Contrast IMPRESSION: 1. Demineralization, as well as posttraumatic and postsurgical changes of the ankle with secondary osteoarthritis. 2. Mild to moderate subcutaneous edema is present on the fibular side of the mid to lower aspect of the leg down to the ankle and foot where the edema is circumferential. The scan is also thickened in these affected regions. No abscesses are present. No subcutaneous air is seen Electronically Signed: Douglas Gillette MD at 15:27 EST Reading Location ID and State: [address] [place] [address] , Service support ,
--- NOTE | 2022-05-13 14:00 | CASEMGMT ---
RN IRINA Face to Face with patient for initial transition planning/care coordination assessment. RN CM introduced self and role at [facility]. Patient lying in bed, alert and oriented, friend at bedside. Patient willing to participate in assessment and is able to answer all questions appropriately. Care providers, pharmacy, and demographics verified. Patient wishes to discharge home, denies need for home health at this time. Patient states she has no further needs or concerns at this time. CM to follow for discharge planning needs that may arise. PCP: Lidya Specialists: [facility]; [facility] Preferred Pharmacy: [facility] Insurance: [place] [facility] Prescription Benefit: yes Living Will/HPOA: none LNOK: mother, father Living Arrangements: Patient lives with mother in a single story home with 4 steps and railing to enter the home. Patient states she is independent at home. Father is currently in TCU Transportation: self, mother DME/HHC: Patient has walker, grab bars, and cpap at home. Patient has had HHC in the past but could not recall agency. Patient has been to [facility] in the past. Mother assists with dressing changes. Disposition Plan: Patient to discharge home with family support and follow-up plans in place. Amada CRANE, RN, CM
[2022-05-13] MEDS: Diphenoxylate/Atrop 1 Tablet 2 TABLET PO ×2 (15:55→20:47)
[2022-05-13 16:32] VITALS: BP 143/84; PULSE 96; RESP 18; TEMP 36.8; O2SAT 100
--- NOTE | 2022-05-13 16:37 | PCM.RX.CS ---
Consult Pharmacy has been consulted to manage selected antiobiotic: Vancomycin Type of Consult: New start Suspected Infection: Skin/Soft tissue Labs: Sodium 143 mmol/L (136-145) 05/13/22 07:02 Potassium 4.0 mmol/L (3.5-5.1) 05/13/22 07:02 Chloride 112 mmol/L (98-107) H 05/13/22 07:02 Carbon Dioxide 23.0 mmol/L (21.0-32.0) 05/13/22 07:02 Anion Gap 8 (5-15) 05/13/22 07:02 BUN 19 mg/dL (7-18) H 05/13/22 07:02 Creatinine 0.96 mg/dL (0.55-1.02) 05/13/22 07:02 Est GFR (MDRD) Af Amer 81 mL/min (>60) 05/13/22 07:02 Est GFR (MDRD) Non-Af 67 mL/min (>60) 05/13/22 07:02 BUN/Creatinine Ratio 19.8 RATIO (10-20) 05/13/22 07:02 Glucose 93 mg/dL (74-106) 05/13/22 07:02 Microbiology: Microbiology 05/12/22 15:56 Interface Orders Gram Stain - Final 05/12/22 15:56 Interface Orders Body Fluid Culture - Preliminary No growth-Final to follow Pharmacy Plan for Drug Dosing: NEW START IV VANCOMYCIN Consulting Physician: TREMAYNE Indication: CELLULITIS Goal Trough: 15-20 MG/DL SrCr: 0.96 MG/DL (05/13) CrCl: 112.2 ML/MIN USING ADJUSTED BODY WEIGHT Comments: PT GIVEN 2000MG DOSE YESTERDAY AT 1634, WILL START OVER SINCE IT HAS BEEN ALMOST 24 HOURS AND PT HAS GOOD RENAL FUNCTION. LOADING DOSE OF 2000MG GIVEN 05/13 @ 1555. Vancomycin Dose: WILL START 1500MG Q8 AND GET A TROUGH PRIOR TO 4TH TOTAL DOSE PER POLICY. Pending Level: 05/14/22 @ 1530 Pharmacy Service will continue to monitor and adjust dosing as required.
[2022-05-13 20:45] VITALS: BP 136/77; PULSE 92; RESP 16; TEMP 36.7; O2SAT 98
[2022-05-13] MEDS: Jantoven 2 MG Tablet PO (20:47)
[2022-05-13] MEDS: DULoxetine Hcl 60 MG Capsule PO (20:48)
[2022-05-13] MEDS: Ferrous Sulfate 325 MG Tablet PO (20:48)
[2022-05-13] MEDS: Metoclopramide 10 MG Tablet PO (20:48)
[2022-05-13] MEDS: Magnesium Chloride 64 MG Delay Rel.Tablet 128 MG PO (20:48)
[2022-05-13] MEDS: Ascorbic Acid 500 MG Tablet 3000 MG PO (20:49)
[2022-05-13] MEDS: Cholecalciferol (VIT D3) 25 MCG TABLET (1,000 UNITS) 150 MCG PO (20:49)
[2022-05-13] MEDS: Calcium Carb/Vitamin D 1 TABLET Tablet PO (20:49)
[2022-05-13] MEDS: MELATONIN 10 MG TABLET PO (20:49)
[2022-05-14] VITALS (7 sets, daily range): BP systolic 113–131; BP diastolic 59–76; PULSE 80–96; RESP 16–18; TEMP 36.6–36.8; O2SAT 96–98
[2022-05-14] MEDS: Pantoprazole Sodium 40 MG Tablet PO (05:25)
[2022-05-14] MEDS: traMADol 50 MG Tablet PO ×3 (05:25→18:53)
[2022-05-14 06:17] LABS: Absolute Lymphocyte Count 1.12 X10^3/uL (0.83-4.51); Absolute Neutrophil Count 6.2 X10^3/uL (2.0-7.7); Basophil# 0.04 X10^3/uL; Basophil% 0.5 % (0-1); Eosinophil# 0.11 X10^3/uL; Eosinophils% 1.3 % (0-5); Hematocrit 32.3 % (37-47); Hemoglobin 10.2 g/dL (12.0-15.0); Lymphocyte # 1.12 X10^3/ul (0.83-4.51); Lymphocyte % 13.7 % (19-41); Mean Corp Hgb Conc 31.6 g/dL (32-36); Mean Corpuscular Hgb 29.8 pg (27.0-32.0); Mean Corpuscular Volume 94.4 fL (81-99); Mean Platelet Vol. 11.3 fl (6.2-12.0); Monocyte# 0.71 X10^3/uL; Monocyte% 8.7 % (0-10); NRBC Flagged by Analyzer 0 % (0-5); Neutrophil # 6.15 X10^3/uL (2.7-7.7); Neutrophil % 75.2 % (47-70); Platelet Count 147 K/mm3 (150-450); RBC Distribution Width CV 13.9 % (11.6-14.6); Red Blood Count 3.42 M/mm3 (4.2-5.4); White Blood Count 8.2 K/mm3 (4.4-11.0)
[2022-05-14 06:52] LABS: Anion Gap 8 (5-15); BUN 17 mg/dL (7-18); BUN/Creat Ratio 17.5 RATIO (10-20); Calcium,Total 8.5 mg/dL (8.5-10.1); Chloride 110 mmol/L (98-107); Creatinine, Serum 0.97 mg/dL (0.55-1.02); EST Glomerular Filtration Rate 66 mL/min (>60); Est Glom Filt Rate - Afr Amer 79 mL/min (>60); Estimated Creatinine Clearance 71.22 ml/min; Glucose 95 mg/dL (74-106); Potassium 4.1 mmol/L (3.5-5.1); Sodium Level 139 mmol/L (136-145)
[2022-05-14] MEDS: 0.9% Normal Saline 1,000 ML 150 ML IV ×3 (07:04→21:45)
--- NOTE | 2022-05-14 08:17 | PN.HOSP_ITS ---
Subjective Subjective Leg more red today. Increased welling in the lateral aspect of her distal leg. It is more tender as well. Objective Data Objective Data Vital Signs: Vital Signs Temp Pulse Resp BP Pulse Ox O2 Del Method 36.8 C 95 16 124/76 H 97 Room Air 05/14/22 02:45 05/14/22 02:45 05/14/22 02:45 05/14/22 02:45 05/14/22 02:45 05/14/22 02:45 Oxygen Delivery Method Room Air Weight: 147.69 kg Body Mass Index (BMI) 51.0 Intake & Output: Intake and Output for Last 24 Hours 05/12/22 05/13/22 05/14/22 23:59 23:59 23:59 Intake Total 2502 / 2502 3652.5 / 3652.5 1357.5 / 1357.5 Output Total 150 / 150 950 / 1000 150 / 150 Balance 2352 / 2352 2702.5 / 2652.5 1207.5 / 1207.5 Lab / Micro Data Result Diagrams: 05/14/22 05:21 05/14/22 05:21 Labs: Laboratory Results - last 24 hr 05/13/22 07:02: PT 21.9 H, INR 2.0 05/14/22 05:21: WBC 8.2, RBC 3.42 L, Hgb 10.2 L, Hct 32.3 L, MCV 94.4, MCH 29.8, MCHC 31.6 L, RDW Std Deviation 48.0 H, RDW Coeff of Julissa 13.9, Plt Count 147 L, MPV 11.3, Immature Gran % (Auto) 0.600, Neut % (Auto) 75.2 H, Lymph % (Auto) 13.7 L, [place] % (Auto) 8.7, Eos % (Auto) 1.3, Baso % (Auto) 0.5, Absolute Neuts (auto) 6.2, Absolute Lymphs (auto) 1.12, Nucleated RBC % 0 05/14/22 05:21: Sodium 139, Potassium 4.1, Chloride 110 H, Carbon Dioxide 21.0, Anion Gap 8, BUN 17, Creatinine 0.97, Estim Creat Clear Calc 71.22, Est GFR (MDRD) Af Amer 79, Est GFR (MDRD) Non-Af 66, BUN/Creatinine Ratio 17.5, Glucose 95, Calcium 8.5 Micro: Microbiology 05/12/22 15:56 Interface Orders Gram Stain - Final 05/12/22 15:56 Interface Orders Body Fluid Culture - Preliminary No growth-Final to follow Radiography Diagnostic Testing: Radiology Impression Lower Extremity CT 05/13/22 13:59 IMPRESSION: 1. Demineralization, as well as posttraumatic and postsurgical changes of the ankle with secondary osteoarthritis. 2. Mild to moderate subcutaneous edema is present on the fibular side of the mid to lower aspect of the leg down to the ankle and foot where the edema is circumferential. The scan is also thickened in these affected regions. No abscesses are present. No subcutaneous air is seen Electronically Signed: Douglas Gillette MD at 15:27 EST , Physical Exam Const alert and no apparent distress HEENT head/scalp atraumatic and moist oral mucous membranes Resp normal respiratory effort and no retractions Extremity Extremity Narrative: Lymphedematous changes to the right lower extremity. Left lower extremity is more red and extending beyond the line of demarcation. Very tender to palpation. Assessment & Plan Assessment/Plan (1) Cellulitis of left lower extremity: PLAN: Worse today DC ceftriaxone, continue vancomycin. Will add meropenem (patient has a penicillin allergy) no abscesses on CT from the . (2) Hematoma of left lower leg: PLAN: Monitor. Hemoglobin remained stable. PLAN: Plan Chronic conditions: * VTE: continue warfarin. Duplex negative. * morbid obesity-complicates care, management, recovery, and prognosischronic depression-patient will remain on Cymbalta * osteoarthritis of the hips-patient uses a walker when ambulating due to severe hip arthritis Charges/Coding Visit Charges Inpatient E&M: 18302 Subs Hosp L2
[2022-05-14] MEDS: Acetaminophen 500 MG Tablet 1000 MG PO ×2 (09:20→17:54)
[2022-05-14] MEDS: Ferrous Sulfate 325 MG Tablet PO ×2 (09:24→21:44)
[2022-05-14] MEDS: Aspirin 81 MG TAB.CHEW 162 MG PO (09:24)
[2022-05-14] MEDS: Calcium Carb/Vitamin D 1 TABLET Tablet PO ×2 (09:25→21:36)
[2022-05-14] MEDS: Ceftriaxone 1 GM/50 ML BAG IV (12:15)
[2022-05-14] MEDS: Magnesium Chloride 64 MG Delay Rel.Tablet 128 MG PO ×2 (12:18→21:36)
[2022-05-14] MEDS: Ascorbic Acid 500 MG Tablet 3000 MG PO ×2 (12:18→21:44)
[2022-05-14] MEDS: Cholecalciferol (VIT D3) 25 MCG TABLET (1,000 UNITS) 150 MCG PO ×2 (12:20→21:35)
[2022-05-14] MEDS: Diphenoxylate/Atrop 1 Tablet 2 TABLET PO ×3 (12:25→21:40)
[2022-05-14 14:29] LABS: International Normalized Ratio 1.9
[2022-05-14 16:17] LABS: Vancomycin, Trough Level 24.5 ug/mL (5.0-15.0)
--- NOTE | 2022-05-14 16:40 | PCM.RX.CS ---
Consult Pharmacy has been consulted to manage selected antiobiotic: Vancomycin Type of Consult: Follow-up Labs: Sodium 139 mmol/L (136-145) 05/14/22 05:21 Potassium 4.1 mmol/L (3.5-5.1) 05/14/22 05:21 Chloride 110 mmol/L (98-107) H 05/14/22 05:21 Carbon Dioxide 21.0 mmol/L (21.0-32.0) 05/14/22 05:21 Anion Gap 8 (5-15) 05/14/22 05:21 BUN 17 mg/dL (7-18) 05/14/22 05:21 Creatinine 0.97 mg/dL (0.55-1.02) 05/14/22 05:21 Est GFR (MDRD) Af Amer 79 mL/min (>60) 05/14/22 05:21 Est GFR (MDRD) Non-Af 66 mL/min (>60) 05/14/22 05:21 BUN/Creatinine Ratio 17.5 RATIO (10-20) 05/14/22 05:21 Glucose 95 mg/dL (74-106) 05/14/22 05:21 Vancomycin Trough 24.5 ug/mL (5.0-15.0) H 05/14/22 15:30 Microbiology: Microbiology 05/12/22 15:56 Interface Orders Gram Stain - Final 05/12/22 15:56 Interface Orders Body Fluid Culture - Preliminary No growth-Final to follow Pharmacy Plan for Drug Dosing: VANCOMYCIN LEVEL RECEIVED Current Vancomycin Dose: 1500MG Q8 Number of Doses Received: 3 Vancomycin Level: 24.5 MG/DL Hours Since Last Dose: 6 Renal Function: SCR 0.97 MG/DL, CRCL 111 ML/MIN USING ADJ BW Renal Function Trend: STABLE Lab/Micro: NONE Vancomycin Plan/Comments: LAST DOSE WAS GIVEN AN HOUR AND A HALF LATE SO THE TROUGH WAS ONLY A 6 HOUR TROUGH WHICH WOULD BE EXPECTED TO BE HIGH AT 24.5 MG/DL. WILL HOLD DOSES FOR 12 HOURS AND GET A RANDOM LEVEL TO MAKE SURE TROUGH IS BELOW 20 AND RE-DOSE BASED ON NEXT LEVEL. Pending Level: 05/15/22 @ 0330 - RANDOM Pharmacy Service will continue to monitor and adjust dosing as required.
[2022-05-14] MEDS: MELATONIN 10 MG TABLET PO (21:37)
[2022-05-14] MEDS: DULoxetine Hcl 60 MG Capsule PO (21:40)
[2022-05-14] MEDS: Metoclopramide 10 MG Tablet PO (21:44)
[2022-05-14] MEDS: Jantoven 2 MG Tablet PO (21:47)
[2022-05-15] VITALS (7 sets, daily range): BP systolic 122–144; BP diastolic 67–83; PULSE 88–106; RESP 16–18; TEMP 36.6–36.8; O2SAT 94–100
[2022-05-15] MEDS: Acetaminophen 500 MG Tablet 1000 MG PO ×2 (02:06→20:58)
[2022-05-15] MEDS: traMADol 50 MG Tablet PO ×3 (02:06→18:22)
[2022-05-15 04:10] LABS: Absolute Neutrophil Count 5.9 X10^3/uL (2.0-7.7); Basophil# 0.03 X10^3/uL; Basophil% 0.4 % (0-1); Eosinophil# 0.17 X10^3/uL; Eosinophils% 2.1 % (0-5); Hematocrit 30.1 % (37-47); Hemoglobin 9.4 g/dL (12.0-15.0); Lymphocyte % 13.9 % (19-41); Mean Corp Hgb Conc 31.2 g/dL (32-36); Mean Corpuscular Hgb 29.7 pg (27.0-32.0); Mean Platelet Vol. 11.1 fl (6.2-12.0); Monocyte% 8.8 % (0-10); NRBC Flagged by Analyzer 0 % (0-5); Neutrophil # 5.85 X10^3/uL (2.7-7.7); Neutrophil % 73.9 % (47-70); POSITIVE COUNT YES; Platelet Count 121 K/mm3 (150-450); RBC Distribution Width SD 48.8 fl (35.1-43.9); Red Blood Count 3.17 M/mm3 (4.2-5.4); White Blood Count 7.9 K/mm3 (4.4-11.0)
[2022-05-15 04:12] LABS: Differential Indicated SCAN CRITERIA MET
[2022-05-15 04:19] LABS: International Normalized Ratio 1.5; Prothrombin Time (Protime)PT. 18.2 SECONDS (11.7-14.9)
[2022-05-15 05:01] LABS: Anion Gap 9 (5-15); BUN 14 mg/dL (7-18); Calcium,Total 8.7 mg/dL (8.5-10.1); Chloride 111 mmol/L (98-107); Creatinine, Serum 0.88 mg/dL (0.55-1.02); EST Glomerular Filtration Rate 74 mL/min (>60); Est Glom Filt Rate - Afr Amer 90 mL/min (>60); Estimated Creatinine Clearance 78.51 ml/min; Glucose 103 mg/dL (74-106); Potassium 4.4 mmol/L (3.5-5.1); Sodium Level 141 mmol/L (136-145)
[2022-05-15 05:04] LABS: Vancomycin, Random Level 12.4 ug/mL (0.0-15.0)
[2022-05-15] MEDS: 0.9% Normal Saline 1,000 ML 150 ML IV ×2 (05:09→14:21)
[2022-05-15] MEDS: Pantoprazole Sodium 40 MG Tablet PO (05:11)
[2022-05-15 05:23] LABS: Platelet Estimate SLT DEC (ADEQ)
--- NOTE | 2022-05-15 05:28 | PCM.RX.CS ---
Consult Pharmacy has been consulted to manage selected antiobiotic: Vancomycin Type of Consult: Follow-up Suspected Infection: Skin/Soft tissue Prior Doses of Antibiotics Received/Current Regimen: Medications Vancomycin HCl 1,500 mg/ (Sodium Chloride) 530 mls @ 250 mls/hr IV Q12H EDUARD Discontinued Medications Vancomycin HCl 1,500 mg/ (Sodium Chloride) 530 mls @ 250 mls/hr IV Q8H EDUARD Last Admin: 05/14/22 17:13 Dose: Not Given Labs: Sodium 141 mmol/L (136-145) 05/15/22 03:45 Potassium 4.4 mmol/L (3.5-5.1) 05/15/22 03:45 Chloride 111 mmol/L (98-107) H 05/15/22 03:45 Carbon Dioxide 21.0 mmol/L (21.0-32.0) 05/15/22 03:45 Anion Gap 9 (5-15) 05/15/22 03:45 BUN 14 mg/dL (7-18) 05/15/22 03:45 Creatinine 0.88 mg/dL (0.55-1.02) 05/15/22 03:45 Est GFR (MDRD) Af Amer 90 mL/min (>60) 05/15/22 03:45 Est GFR (MDRD) Non-Af 74 mL/min (>60) 05/15/22 03:45 BUN/Creatinine Ratio 16.0 RATIO (10-20) 05/15/22 03:45 Glucose 103 mg/dL (74-106) 05/15/22 03:45 Vancomycin Trough 24.5 ug/mL (5.0-15.0) H 05/14/22 15:30 Random Vancomycin 12.4 ug/mL (0.0-15.0) 05/15/22 03:45 Microbiology: Microbiology 05/12/22 15:56 Interface Orders Gram Stain - Final 05/12/22 15:56 Interface Orders Body Fluid Culture - Preliminary No growth-Final to follow Weight used for dosin.69 kg Estimated Creatinine Clearance: >120 Goal Trough: 15-20 mcg/mL Pharmacy Plan for Drug Dosing: Random vancomycin level was 12.4, drawn 18.4hrs post-dose. Per aminoglycoside dosing calculator, a new dose of 1500mg q12h should give an estimated trough of 15.2. Will draw another trough level prior to fourth dose of new regimen. Pharmacy Service will continue to monitor and adjust dosing as required. Follow-Up Labs: Trough Vancomycin Labs to be done on [date and time ordered]: 05/16/22 @3566
[2022-05-15] MEDS: Aspirin 81 MG TAB.CHEW 162 MG PO (08:39)
[2022-05-15] MEDS: Ferrous Sulfate 325 MG Tablet PO ×2 (08:39→21:02)
[2022-05-15] MEDS: Calcium Carb/Vitamin D 1 TABLET Tablet PO ×2 (08:39→21:00)
[2022-05-15] MEDS: Magnesium Chloride 64 MG Delay Rel.Tablet 128 MG PO ×2 (08:40→21:01)
[2022-05-15] MEDS: Cholecalciferol (VIT D3) 25 MCG TABLET (1,000 UNITS) 150 MCG PO ×2 (08:40→21:01)
[2022-05-15] MEDS: Ascorbic Acid 500 MG Tablet 3000 MG PO ×2 (10:00→20:59)
[2022-05-15] MEDS: Diphenoxylate/Atrop 1 Tablet 2 TABLET PO ×4 (10:00→21:04)
--- NOTE | 2022-05-15 14:47 | CHAPLAIN ---
Type of Pastoral Visit _x__ Initial Visit ___ Follow-up Visit ___ On-call Visit ___ General Patient Visit ___ Spiritual Assessment ___ Family Conference ___ Bereavement ___ Rapid Response ___ Code Blue ___ Other (describe below) Pastoral Care Referral From _x__ Patient ___ Family ___ Nurse ___ Physician ___ Research Physiologist ___ Petroleum Engineering Professor ___ Other (describe below) Sacrament/Intervention _x__ Active listening ___ Anointing ___ Confucianist ___ Bereavement ___ Communion _x__ Jacqui exploration ___ _x__ Life review _x__ Prayer ___ Reconciliation ___ Sacrament of Sick _x__ Supportive presence ___ Wedding ___ Other (describe below) Pastoral Comments patient is open to spiritual care support and is talkative about her life and past health issues; pt states that she sees how God has answered prayer and met her needs; pt speaks of her father and his health needs at this time too; pt seeks prayer for self and her parents;
--- NOTE | 2022-05-15 16:49 | PCM.PN.HOSP ---
Subjective Subjective Per discussion with nursing it seems that the erythema has reduced some however patient is still reporting considerable pain in the left lower extremity. Appetite has been fine. Patient reports that most of her drug allergies are nausea vomiting diarrhea but and not true allergies. Objective Data Objective Data Vital Signs: Vital Signs Temp Pulse Resp BP Pulse Ox O2 Del Method 97.8 F 90 18 144/74 H 100 Room Air 05/15/22 15:47 05/15/22 15:47 05/15/22 15:47 05/15/22 15:47 05/15/22 15:47 05/15/22 15:47 Oxygen Delivery Method Room Air Weight: 147.69 kg Body Mass Index (BMI) 51.0 Intake & Output: Intake and Output for Last 24 Hours 05/13/22 05/14/22 05/15/22 23:59 23:59 23:59 Intake Total 3652.5 / 3652.5 4947.5 / 4947.5 3170 / 3170 Output Total 950 / 1000 500 / 500 200 / 200 Balance 2702.5 / 2652.5 4447.5 / 4447.5 2970 / 2970 Lab / Micro Data Result Diagrams: 05/15/22 03:45 05/15/22 03:45 Labs: Laboratory Results - last 24 hr 05/15/22 03:45: WBC 7.9, RBC 3.17 L, Hgb 9.4 L, Hct 30.1 L, MCV 95.0, MCH 29.7, MCHC 31.2 L, RDW Std Deviation 48.8 H, RDW Coeff of Julissa 14.0, Plt Count 121 L, MPV 11.1, Immature Gran % (Auto) 0.900, Neut % (Auto) 73.9 H, Lymph % (Auto) 13.9 L, [place] % (Auto) 8.8, Eos % (Auto) 2.1, Baso % (Auto) 0.4, Absolute Neuts (auto) 5.9, Absolute Lymphs (auto) 1.10, Nucleated RBC % 0, Platelet Estimate SLT 05/15/22 03:45: PT 18.2 H, INR 1.5 05/15/22 03:45: Sodium 141, Potassium 4.4, Chloride 111 H, Carbon Dioxide 21.0, Anion Gap 9, BUN 14, Creatinine 0.88, Estim Creat Clear Calc 78.51, Est GFR (MDRD) Af Amer 90, Est GFR (MDRD) Non-Af 74, BUN/Creatinine Ratio 16.0, Glucose 103, Calcium 8.7 05/15/22 03:45: Random Vancomycin 12.4 Micro: Microbiology 05/12/22 15:56 Interface Orders Gram Stain - Final 05/12/22 15:56 Interface Orders Body Fluid Culture - Final No growth aerobically. 05/12/22 15:56 Interface Orders Anaerobic Culture - Preliminary No growth in 48 hours. Physical Exam Const alert, oriented x3, no apparent distress and well nourished Constitutional Narrative: Morbidly obese white female sitting up in bed, appears comfortable, currently eating breakfast, nursing at bedside, nontoxic HEENT head/scalp atraumatic and moist oral mucous membranes HEENT Narrative: Mallampati 3-4, no thrush Head and Scalp: normocephalic Resp normal respiratory effort, no retractions, no use of accessory muscles and clear to auscultation bilaterally Auscultation: Negative for crackles, rhonchi or wheezes Cardio regular rate, regular rhythm, S1 normal heart sound, S2 normal heart sound, no murmurs, no rub, no gallops and no clicks GI normal to inspection, nondistended, normoactive bowel sounds, soft to palpation and non-tender Extremity Extremity Narrative: Left lower extremity with chronic lymphedema as well as acute swelling, erythema to the mid tibia, tenderness with no significant open areas, no cyanosis or clubbing Neuro oriented x3, moves all extremities and no focal motor deficits Neuro Narrative: Left lower extremity is hypersensitive Speech: speech normal Psych affect normal Assessment & Plan Assessment/Plan (1) Hematoma of left lower leg: (2) Cellulitis of left lower extremity: PLAN: Plan Left lower extremity cellulitis -Antibiotics were converted from ceftriaxone and vancomycin to meropenem and vancomycin yesterday -CT of the lower extremity was done on the and showed no abscess -Erythema seems better today however still exquisitely tender -We will reevaluate tomorrow if no improvement will repeat CT of the leg -Wound cultures done on 05 May showed MRSA/group B strep/corynebacterium/and anaerobic cocci -Patient was on erythromycin prior to admission and took 2-1/2 days of this -Will check hemoglobin A1c -Consult infectious disease Left lower extremity hematoma -Drained in the emergency department -Culture shows no growth to date -Continue antibiotics as above for cellulitis Chronic anemia -Counts are overall stable -We will repeat in a.m. after discontinuation of IV fluids -Continue home iron supplementation History of DVT/PE -Continue Coumadin -Lower extremity duplex was negative - INR 1.5 today -Repeat INR in a.m. -If remains subtherapeutic may need to cover with full dose subcu Lovenox JOSEPH -Continue CPAP nocturnally GERD -Continue home PPI Morbid obesity -BMI 51.0 -Recommend weight loss -Complicates treatment, prognosis, outcomes DVT prophylaxis -Patient is fully anticoagulated with Coumadin -Repeat INR in a.m. and if remains subtherapeutic will fully anticoagulate CODE STATUS Full code Charges/Coding Visit Charges Inpatient E&M: 02696 Subs Hosp L2
[2022-05-15] MEDS: Jantoven 2 MG Tablet PO (21:00)
[2022-05-15] MEDS: DULoxetine Hcl 60 MG Capsule PO (21:00)
[2022-05-15] MEDS: MELATONIN 10 MG TABLET PO (21:01)
[2022-05-15] MEDS: Metoclopramide 10 MG Tablet PO (21:02)
[2022-05-16 03:00] VITALS: BP 123/68; PULSE 88; RESP 16; TEMP 36.6; O2SAT 98
[2022-05-16] MEDS: Pantoprazole Sodium 40 MG Tablet PO (05:09)
[2022-05-16] MEDS: traMADol 50 MG Tablet PO ×3 (05:09→21:20)
[2022-05-16 08:18] VITALS: BP 129/81; PULSE 92; RESP 22; TEMP 37.4; O2SAT 97
[2022-05-16 08:22] LABS: Absolute Lymphocyte Count 0.91 X10^3/uL (0.83-4.51); Absolute Neutrophil Count 5.6 X10^3/uL (2.0-7.7); Basophil# 0.03 X10^3/uL; Basophil% 0.4 % (0-1); Eosinophil# 0.18 X10^3/uL; Eosinophils% 2.5 % (0-5); Hematocrit 32.3 % (37-47); Hemoglobin 10.5 g/dL (12.0-15.0); Lymphocyte # 0.91 X10^3/ul (0.83-4.51); Lymphocyte % 12.4 % (19-41); Mean Corp Hgb Conc 32.5 g/dL (32-36); Mean Corpuscular Hgb 29.9 pg (27.0-32.0); Mean Platelet Vol. 10.7 fl (6.2-12.0); Monocyte# 0.54 X10^3/uL; Monocyte% 7.4 % (0-10); NRBC Flagged by Analyzer 0 % (0-5); Neutrophil # 5.56 X10^3/uL (2.7-7.7); Neutrophil % 76.1 % (47-70); Platelet Count 142 K/mm3 (150-450); RBC Distribution Width CV 13.9 % (11.6-14.6); RBC Distribution Width SD 47.1 fl (35.1-43.9); Red Blood Count 3.51 M/mm3 (4.2-5.4); White Blood Count 7.3 K/mm3 (4.4-11.0)
[2022-05-16 08:35] LABS: International Normalized Ratio 1.5; Prothrombin Time (Protime)PT. 17.8 SECONDS (11.7-14.9)
--- NOTE | 2022-05-16 08:41 | WOUNDNOTE ---
Was asked to see patient for cellulitis to the LLE. patient states she has been following at the wound center every Sunday. patient had a large scabbed area noted to the left medial heel. this was able to be removed very easily. no open areas noted underneath. there is still redness noted to the LLE, but does appear improved according to skin markings. there is some tenderness noted, but patient states has improved. patient has moderate edema noted to bilateral lower legs. washed legs and feet with soap and water. pat dry. padded the left ankle and wrapped bilateral lower legs and feet with HELEN wraps. pt tolerated well. see skin photos.
[2022-05-16 08:48] LABS: Anion Gap 5 (5-15); BUN 12 mg/dL (7-18); BUN/Creat Ratio 14.5 RATIO (10-20); Calcium,Total 8.6 mg/dL (8.5-10.1); Chloride 113 mmol/L (98-107); Creatinine, Serum 0.83 mg/dL (0.55-1.02); EST Glomerular Filtration Rate 79 mL/min (>60); Est Glom Filt Rate - Afr Amer 96 mL/min (>60); Estimated Creatinine Clearance 83.24 ml/min; Glucose 91 mg/dL (74-106); Potassium 4.2 mmol/L (3.5-5.1); Sodium Level 142 mmol/L (136-145)
[2022-05-16 08:56] LABS: Hemoglobin A1c 5.7 % (3.8-5.6)
[2022-05-16] MEDS: Aspirin 81 MG TAB.CHEW 162 MG PO (10:00)
[2022-05-16] MEDS: Calcium Carb/Vitamin D 1 TABLET Tablet PO ×2 (10:00→21:21)
[2022-05-16] MEDS: Ferrous Sulfate 325 MG Tablet PO ×2 (10:00→21:20)
[2022-05-16] MEDS: Magnesium Chloride 64 MG Delay Rel.Tablet 128 MG PO ×2 (10:01→21:20)
[2022-05-16] MEDS: Ascorbic Acid 500 MG Tablet 3000 MG PO ×2 (10:01→21:21)
[2022-05-16] MEDS: Diphenoxylate/Atrop 1 Tablet 2 TABLET PO ×4 (10:01→21:20)
[2022-05-16] MEDS: Cholecalciferol (VIT D3) 25 MCG TABLET (1,000 UNITS) 150 MCG PO ×2 (10:02→21:21)
--- NOTE | 2022-05-16 10:54 | WOUNDNOTE ---
skin photo: left lower leg
--- NOTE | 2022-05-16 10:55 | WOUNDNOTE ---
skin photo: left lower leg
--- NOTE | 2022-05-16 10:59 | PCM.CONS.GEN ---
Assessment & Plan Assessment/Plan (1) Cellulitis of left lower extremity: PLAN: Recent wound cxs with PsA, MRSA, strep, corynebacter, and anaerobes. Never got an outpt course of abx that covered all these organisms which may explain her presentation here. On vanc/reyes, improving. Reports upset stomach with amox/keflex/bactrim. Will follow, thank you. HPI Consult Data Date of Consult: 05/16/22 HPI Narrative Reason for Consultation: LLE cellulitis HPI Narrative: PUSHPA ORELLANA, is a 46 F with h/o obesity, L club foot, follows at wound center. Given course of cipro/flagyl for L lower leg infection 2 weeks ago. Repeat cxs sent, put on erythromycin for 3 days then from wound center 05/12 sent to ED due to acutely worsening L lower leg redness, swelling, and moderate stabbing pain. No drainage, no fever. Admitted on vanc/ceftriaxone, then changed to vanc/reyes, feeling a little better today. Full ROS performed and neg except as noted above. [facility] Medical History Back pain CPAP (continuous positive airway pressure) dependence Current use of fci anticoagulation Depression Diverticulitis Easy bruising Excessive bleeding Gastric reflux History of blood transfusion History of Clostridium difficile infection History of DVT (deep vein thrombosis) History of edema History of GI bleed History of IBS Ileostomy in place Irritable bowel syndrome (IBS) Leg cramps Low iron Non-smoker Post-menopausal Pulmonary embolism Restless legs Shortness of breath on exertion Sleep apnea Walker as 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 Wears glasses Home Medications calcium carbonate 600 mg-vitamin D3 12.5 mcg (500 unit) capsule 1 tab PO BID SUPPLEMENT 12/13/17 [History Last Taken 05/11/22] ferrous sulfate 325 mg (65 mg iron) tablet 325 mg PO BID anemia 12/13/17 [History Last Taken 05/11/22] zinc sulfate 50 mg zinc (220 mg) capsule 220 mg PO QHS SUPPLEMENT 12/13/17 [History Last Taken 05/11/22] acetaminophen 500 mg tablet 1,000 mg PO Q6H PRN Pain 12/21/17 [History Last Taken 04/03/22 08:15] ascorbic acid (vitamin C) 1,000 mg tablet (Vitamin C) 3,000 mg PO BID SUPPLEMENT 12/21/17 [History Last Taken 05/11/22] ergocalciferol (vitamin D2) 1,250 mcg (50,000 unit) capsule (Vitamin D2) 50,000 unit PO MO supplement 12/21/17 [History Last Taken 05/08/22] magnesium oxide 400 mg PO BID SUPPLEMENT 12/21/17 [History Last Taken 05/11/22] aspirin 81 mg chewable tablet 2 tab PO DAILY HEART HEALTH 04/22/20 [History Last Taken 05/11/22] Bacillus coagulans 10 billion cell capsule,delayed release (Probiotic (B. coagulans)) 1 cell PO DAILY GUT HEALTH 07/08/21 [History Last Taken 05/11/22] duloxetine 60 mg capsule,delayed release sprinkle 60 mg PO QHS DEPRESSION 07/08/21 [History Last Taken 05/11/22] diphenoxylate-atropine 2.5 mg-0.025 mg tablet (Lomotil) 2 tab PO 4X/DAY IBS 07/27/21 [History Last Taken 05/11/22] diclofenac sodium 1 % topical gel 2 - 4 g topical UD PAIN 12/05/21 [History Last Taken 05/11/22] tramadol 50 mg tablet 50 - 100 mg PO Q6H PRN Pain 03/06/22 [History Last Taken 05/11/22] cholecalciferol (vitamin D3) 50 mcg (2,000 unit) tablet 6,000 unit PO BID SUPPLEMENT 05/12/22 [History Last Taken 05/11/22] erythromycin 500 mg tablet,delayed release 500 mg PO BID 05/12/22 [History Last Taken 05/11/22] melatonin 10 mg tablet 10 mg PO QHS 05/12/22 [History Last Taken 05/11/22] melatonin 5 mg tablet 5 mg PO QHS sleep 05/12/22 [History Last Taken 05/11/22] metoclopramide HCl 10 mg tablet 10 mg PO QHS 05/12/22 [History Last Taken 05/11/22] omeprazole 20 mg capsule,delayed release 40 mg PO 0500 ACID REFLUX 05/12/22 [History Last Taken 05/11/22 05:00] warfarin 2 mg tablet 2 mg PO QHS BLOOD THINNER 05/12/22 [History Last Taken 05/11/22] Allergy/AdvReac Type Severity Reaction Status Date / Time latex Allergy Rash Verified 05/12/22 14:00 amoxicillin AdvReac Nausea/Vom/ Verified 05/12/22 14:00 Diarrhea cephalexin AdvReac Nausea/Vom/ Verified 05/12/22 14:00 Diarrhea naproxen AdvReac Nausea/Vom/ Verified 05/12/22 14:00 Diarrhea sulfamethoxazole AdvReac Nausea/Vom/ Verified 05/12/22 14:00 [From Bactrim] Diarrhea trimethoprim [From Bactrim] AdvReac Nausea/Vom/ Verified 05/12/22 14:00 Diarrhea Surgical History H/O colectomy History of colonoscopy History of rectal surgery Hx of foot surgery Ileostomy status Social History Smoking Status: Never smoker alcohol intake: never substance use type: does not use Physical Exam Const alert, oriented x3 and no apparent distress General Appearance: cooperative and well developed HEENT normocephalic and head/scalp atraumatic Eyes PERRL and EOMs intact bilaterally Neck supple and No nodes Resp normal air movement and clear to auscultation bilaterally Cardio regular rate and regular rhythm GI soft to palpation, non-tender and non-distended Extremity General Extremity: edema Skin Skin Narrative: Reviewed photos, L lower redness, warmth, swelling. Neuro CN's II-XII intact bilaterally Lab / Micro Data Attestation: I reviewed the patient's lab results. Result Diagrams: 05/16/22 08:10 05/16/22 08:10 Labs: Laboratory Results - last 24 hr 05/16/22 08:10: Hemoglobin A1c 5.7 H 05/16/22 08:10: PT 17.8 H, INR 1.5 05/16/22 08:10: WBC 7.3, RBC 3.51 L, Hgb 10.5 L, Hct 32.3 L, MCV 92.0, MCH 29.9, MCHC 32.5, RDW Std Deviation 47.1 H, RDW Coeff of Julissa 13.9, Plt Count 142 L, MPV 10.7, Immature Gran % (Auto) 1.200 H, Neut % (Auto) 76.1 H, Lymph % (Auto) 12.4 L, [place] % (Auto) 7.4, Eos % (Auto) 2.5, Baso % (Auto) 0.4, Absolute Neuts (auto) 5.6, Absolute Lymphs (auto) 0.91, Nucleated RBC % 0 05/16/22 08:10: Sodium 142, Potassium 4.2, Chloride 113 H, Carbon Dioxide 24.0, Anion Gap 5, BUN 12, Creatinine 0.83, Estim Creat Clear Calc 83.24, Est GFR (MDRD) Af Amer 96, Est GFR (MDRD) Non-Af 79, BUN/Creatinine Ratio 14.5, Glucose 91, Calcium 8.6 Micro: Microbiology 05/12/22 15:56 Interface Orders Gram Stain - Final 05/12/22 15:56 Interface Orders Body Fluid Culture - Final No growth aerobically. 05/12/22 15:56 Interface Orders Anaerobic Culture - Preliminary No growth in 48 hours.
[2022-05-16] MEDS: Acetaminophen 500 MG Tablet 1000 MG PO (13:19)
[2022-05-16 14:15] VITALS: BP 127/76; PULSE 95; RESP 18; TEMP 36.7; O2SAT 95
--- NOTE | 2022-05-16 15:07 | PCM.PN.HOSP ---
Subjective Subjective Patient states her left lower extremity is still very sore and rates it 7 out of 10. It appears that the erythema has improved. Patient is able to ambulate on it. Objective Data Objective Data Vital Signs: Vital Signs Temp Pulse Resp BP Pulse Ox O2 Del Method 99.4 F H 92 22 H 129/81 H 97 Room Air 05/16/22 08:18 05/16/22 08:18 05/16/22 08:18 05/16/22 08:18 05/16/22 08:18 05/16/22 08:18 Oxygen Delivery Method Room Air Weight: 147.69 kg Body Mass Index (BMI) 51.0 Intake & Output: Intake and Output for Last 24 Hours 05/14/22 05/15/22 05/16/22 23:59 23:59 23:59 Intake Total 4947.5 / 4947.5 4820 / 4820 1270 / 1270 Output Total 500 / 500 250 / 250 100 / 100 Balance 4447.5 / 4447.5 4570 / 4570 1170 / 1170 Lab / Micro Data Result Diagrams: 05/16/22 08:10 05/16/22 08:10 Labs: Laboratory Results - last 24 hr 05/16/22 08:10: Hemoglobin A1c 5.7 H 05/16/22 08:10: PT 17.8 H, INR 1.5 05/16/22 08:10: WBC 7.3, RBC 3.51 L, Hgb 10.5 L, Hct 32.3 L, MCV 92.0, MCH 29.9, MCHC 32.5, RDW Std Deviation 47.1 H, RDW Coeff of Julissa 13.9, Plt Count 142 L, MPV 10.7, Immature Gran % (Auto) 1.200 H, Neut % (Auto) 76.1 H, Lymph % (Auto) 12.4 L, [place] % (Auto) 7.4, Eos % (Auto) 2.5, Baso % (Auto) 0.4, Absolute Neuts (auto) 5.6, Absolute Lymphs (auto) 0.91, Nucleated RBC % 0 05/16/22 08:10: Sodium 142, Potassium 4.2, Chloride 113 H, Carbon Dioxide 24.0, Anion Gap 5, BUN 12, Creatinine 0.83, Estim Creat Clear Calc 83.24, Est GFR (MDRD) Af Amer 96, Est GFR (MDRD) Non-Af 79, BUN/Creatinine Ratio 14.5, Glucose 91, Calcium 8.6 Micro: Microbiology 05/12/22 15:56 Interface Orders Gram Stain - Final 05/12/22 15:56 Interface Orders Body Fluid Culture - Final No growth aerobically. 05/12/22 15:56 Interface Orders Anaerobic Culture - Preliminary No growth in 48 hours. Physical Exam Narrative Patient is morbidly obese Const alert, oriented x3, no apparent distress, healthy appearing and well nourished Constitutional Narrative: Morbidly obese white female sitting up in bed, appears comfortable, currently has just finished using the bathroom, nursing assistants bedside, nontoxic HEENT normocephalic, head/scalp atraumatic and moist oral mucous membranes HEENT Narrative: Dentition is good, Mallampati is 3-4, no thrush Resp normal respiratory effort, no retractions, no use of accessory muscles and clear to auscultation bilaterally Auscultation: Negative for crackles, rales, rhonchi or wheezes Cardio regular rate, regular rhythm, S1 normal heart sound, S2 normal heart sound, no murmurs, no rub, no gallops and no clicks GI normal to inspection, nondistended, normoactive bowel sounds, soft to palpation, non-tender and non-distended Extremity no clubbing, cyanosis or edema Extremity Narrative: Left lower extremity with chronic lymphedema as well as acute swelling, dressing and place, I did review pictures from wound care and the erythema appears much improved and retracting Neuro oriented x3, moves all extremities and no focal motor deficits Neuro Narrative: Left lower extremity is hypersensitive Speech: speech normal Psych affect normal Assessment & Plan Assessment/Plan (1) Hematoma of left lower leg: (2) Cellulitis of left lower extremity: PLAN: Plan Left lower extremity cellulitis -CT of the lower extremity was done on the and showed no abscess -Erythema is much improved today when reviewing pictures -Wound cultures done on 05 May showed MRSA/group B strep/corynebacterium/and anaerobic cocci -Patient was on erythromycin prior to admission and took 2-1/2 days of this--> poor coverage for above bacteria -Hemoglobin A1c was 5.7 indicating the patient is insulin resistant but not diabetic -Infectious disease evaluated the patient today and will continue current antibiotics with meropenem and vancomycin -Await further input in the future for discharge recommendations with regards to antibiotics Left lower extremity hematoma -Drained in the emergency department -Hemoglobin and is stable at 10.5 today -Culture remains no growth to date -Continue antibiotics as above for cellulitis Chronic anemia -Counts are overall stable -We will repeat in a.m. after discontinuation of IV fluids -Continue home iron supplementation Thrombocytopenia -Mild -Improving -Repeat CBC in a.m. History of DVT/PE -Continue Coumadin but increase from 2 mg home dose to 4 mg as INR is not trending up -Lower extremity duplex was negative -INR 1.5 today again today -Start Lovenox 150 twice daily until INR is therapeutic -If remains subtherapeutic may need to cover with full dose subcu Lovenox JOSEPH -Continue CPAP nocturnally GERD -Continue home PPI Morbid obesity -BMI 51.0 -Recommend weight loss -Complicates treatment, prognosis, outcomes DVT prophylaxis -Patient is fully anticoagulated with Coumadin -Start therapeutic Lovenox until INR is therapeutic at 2.0-3.0 CODE STATUS Full code Charges/Coding Visit Charges Inpatient E&M: 04764 Subs Hosp L2
[2022-05-16] MEDS: Enoxaparin 150 MG/ML Syringe SC (16:09)
[2022-05-16 18:51] LABS: Vancomycin, Trough Level 14.7 ug/mL (5.0-15.0)
--- NOTE | 2022-05-16 21:00 | PCM.RX.CS ---
Consult Pharmacy has been consulted to manage selected antiobiotic: Vancomycin Type of Consult: Follow-up Suspected Infection: Skin/Soft tissue Labs: Sodium 142 mmol/L (136-145) 05/16/22 08:10 Potassium 4.2 mmol/L (3.5-5.1) 05/16/22 08:10 Chloride 113 mmol/L (98-107) H 05/16/22 08:10 Carbon Dioxide 24.0 mmol/L (21.0-32.0) 05/16/22 08:10 Anion Gap 5 (5-15) 05/16/22 08:10 BUN 12 mg/dL (7-18) 05/16/22 08:10 Creatinine 0.83 mg/dL (0.55-1.02) 05/16/22 08:10 Est GFR (MDRD) Af Amer 96 mL/min (>60) 05/16/22 08:10 Est GFR (MDRD) Non-Af 79 mL/min (>60) 05/16/22 08:10 BUN/Creatinine Ratio 14.5 RATIO (10-20) 05/16/22 08:10 Glucose 91 mg/dL (74-106) 05/16/22 08:10 Vancomycin Trough 14.7 ug/mL (5.0-15.0) 05/16/22 17:57 Random Vancomycin 12.4 ug/mL (0.0-15.0) 05/15/22 03:45 Microbiology: Microbiology 05/12/22 15:56 Interface Orders Gram Stain - Final 05/12/22 15:56 Interface Orders Body Fluid Culture - Final No growth aerobically. 05/12/22 15:56 Interface Orders Anaerobic Culture - Preliminary No growth in 48 hours. Goal Trough: 15-20 mcg/mL Pharmacy Plan for Drug Dosing: VANCOMYCIN LEVEL RECEIVED Current Vancomycin Dose: 1500mg q12h (06,18) Number of Doses Received: x3 of current dose Vancomycin Level: 14.7 Hours Since Last Dose: 12.5 Renal Function: SrCr 0.83 Renal Function Trend: SrCr improving (was 0.88) Lab/Micro: Vancomycin Plan/Comments: resulted trough of 14.7 is close to being within the ordered goal trough of 15-20. recommend continuing current dose of 1500mg q12h and checking a trough in 4 more doses Pending Level: 05/18/22 at 1730 Pharmacy Service will continue to monitor and adjust dosing as required. Follow-Up Labs: Trough Vancomycin - 05/18/22 at 1730
[2022-05-16] MEDS: Metoclopramide 10 MG Tablet PO (21:20)
[2022-05-16] MEDS: DULoxetine Hcl 60 MG Capsule PO (21:20)
[2022-05-16] MEDS: MELATONIN 10 MG TABLET PO (21:21)
[2022-05-16 23:00] VITALS: BP 130/77; PULSE 100; RESP 18; TEMP 37.4; O2SAT 97
[2022-05-17] MEDS: traMADol 50 MG Tablet PO (04:41)
[2022-05-17] MEDS: Pantoprazole Sodium 40 MG Tablet PO (04:42)
[2022-05-17] MEDS: 0.9% Saline Lock 10 ML Syringe IV ×4 (04:43→09:18)
[2022-05-17 04:49] VITALS: BP 131/81; PULSE 95; RESP 18; TEMP 37.5; O2SAT 97
[2022-05-17] MEDS: Enoxaparin 150 MG/ML Syringe SC (06:04)
[2022-05-17 07:39] LABS: Absolute Lymphocyte Count 0.91 X10^3/uL (0.83-4.51); Absolute Neutrophil Count 5.1 X10^3/uL (2.0-7.7); Basophil# 0.03 X10^3/uL; Basophil% 0.4 % (0-1); Eosinophil# 0.18 X10^3/uL; Eosinophils% 2.6 % (0-5); Hematocrit 29.3 % (37-47); Hemoglobin 9.6 g/dL (12.0-15.0); Lymphocyte # 0.91 X10^3/ul (0.83-4.51); Lymphocyte % 13.4 % (19-41); Mean Corp Hgb Conc 32.8 g/dL (32-36); Mean Corpuscular Hgb 30.1 pg (27.0-32.0); Mean Corpuscular Volume 91.8 fL (81-99); Mean Platelet Vol. 10.7 fl (6.2-12.0); Monocyte# 0.49 X10^3/uL; Monocyte% 7.2 % (0-10); NRBC Flagged by Analyzer 0 % (0-5); Neutrophil % 75.1 % (47-70); Platelet Count 156 K/mm3 (150-450); RBC Distribution Width CV 13.8 % (11.6-14.6); Red Blood Count 3.19 M/mm3 (4.2-5.4); White Blood Count 6.8 K/mm3 (4.4-11.0)
[2022-05-17 07:46] LABS: Anion Gap 9 (5-15); BUN 16 mg/dL (7-18); BUN/Creat Ratio 20.9 RATIO (10-20); Calcium,Total 8.5 mg/dL (8.5-10.1); Chloride 109 mmol/L (98-107); Creatinine, Serum 0.77 mg/dL (0.55-1.02); EST Glomerular Filtration Rate 86 mL/min (>60); Est Glom Filt Rate - Afr Amer 104 mL/min (>60); Estimated Creatinine Clearance 89.72 ml/min; Glucose 91 mg/dL (74-106); Potassium 4.1 mmol/L (3.5-5.1); Sodium Level 141 mmol/L (136-145)
[2022-05-17 08:18] LABS: International Normalized Ratio 1.5; Prothrombin Time (Protime)PT. 17.8 SECONDS (11.7-14.9)
[2022-05-17] MEDS: Magnesium Chloride 64 MG Delay Rel.Tablet 128 MG PO (08:27)
[2022-05-17] MEDS: Cholecalciferol (VIT D3) 25 MCG TABLET (1,000 UNITS) 150 MCG PO (08:28)
[2022-05-17] MEDS: Ascorbic Acid 500 MG Tablet 3000 MG PO (08:28)
[2022-05-17] MEDS: Aspirin 81 MG TAB.CHEW 162 MG PO (08:29)
[2022-05-17] MEDS: Ferrous Sulfate 325 MG Tablet PO (08:29)
[2022-05-17] MEDS: Calcium Carb/Vitamin D 1 TABLET Tablet PO (08:29)
[2022-05-17] MEDS: Diphenoxylate/Atrop 1 Tablet 2 TABLET PO ×2 (08:31→14:53)
--- NOTE | 2022-05-17 09:53 | WOUNDNOTE ---
Removed the HELEN wrap and dressing from the LLE. the redness continues to improve. patient states pain is improved as well. there are no open areas noted. washed legs and feet with soap and water. pat dry. applied aloe vesta to the dry dressing and wrapped legs with kerlix and HELEN wraps from the base of the toes to just below the knees. pt tolerated well. plan is for discharge home today.
--- NOTE | 2022-05-17 09:55 | WOUNDNOTE ---
There was some stool leakage noted near the umbilicus from the ostomy appliance. patient just had some gauze placed under flange to absorb the stool. reminded patient the importance of changing the appliance right away once a leak is noticed to avoid skin breakdown. patient states there was some bleeding noted last evening. removed the appliance. small amount of bloody drainage noted on the old appliance. no active bleeding noted. stoma is very well budded and moist. peristomal skin is intact. washed with soap and water. pat dry. applied a new 2 piece convex ostomy appliance with a barrier ring and stoma paste strip as requested. pt tolerated well.
--- NOTE | 2022-05-17 11:26 | PCM.DC.SUM ---
Providers Date of Admission: 05/13/22 Date of Discharge: 05/17/22 Primary Care Physician: Dr. 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 Routine Comment: Reason for Consult:: LLE wound Reason For Visit: CELLULITIS Diagnosis Discharge Diagnosis (1) Hematoma of left lower leg: Status: Acute Code(s): S80.12XA - Contusion of left lower leg, initial encounter (2) Cellulitis of left lower extremity: Status: Acute Code(s): L03.116 - Cellulitis of left lower limb Medications at Discharge Home Medications calcium carbonate 600 mg-vitamin D3 12.5 mcg (500 unit) capsule 1 tab PO BID SUPPLEMENT 12/13/17 ferrous sulfate 325 mg (65 mg iron) tablet 325 mg PO BID anemia 12/13/17 zinc sulfate 50 mg zinc (220 mg) capsule 220 mg PO QHS SUPPLEMENT 12/13/17 acetaminophen 500 mg tablet 1,000 mg PO Q6H PRN Pain 12/21/17 ascorbic acid (vitamin C) 1,000 mg tablet (Vitamin C) 3,000 mg PO BID SUPPLEMENT 12/21/17 ergocalciferol (vitamin D2) 1,250 mcg (50,000 unit) capsule (Vitamin D2) 50,000 unit PO MO supplement 12/21/17 magnesium oxide 400 mg PO BID SUPPLEMENT 12/21/17 aspirin 81 mg chewable tablet 2 tab PO DAILY HEART HEALTH 04/22/20 Bacillus coagulans 10 billion cell capsule,delayed release (Probiotic (B. coagulans)) 1 cell PO DAILY GUT HEALTH 07/08/21 duloxetine 60 mg capsule,delayed release sprinkle 60 mg PO QHS DEPRESSION 07/08/21 diphenoxylate-atropine 2.5 mg-0.025 mg tablet (Lomotil) 2 tab PO 4X/DAY IBS 07/27/21 diclofenac sodium 1 % topical gel 2 - 4 g topical UD PAIN 12/05/21 tramadol 50 mg tablet 50 - 100 mg PO Q6H PRN Pain 03/06/22 cholecalciferol (vitamin D3) 50 mcg (2,000 unit) tablet 6,000 unit PO BID SUPPLEMENT 05/12/22 melatonin 10 mg tablet 10 mg PO QHS 05/12/22 melatonin 5 mg tablet 5 mg PO QHS sleep 05/12/22 metoclopramide HCl 10 mg tablet 10 mg PO QHS 05/12/22 omeprazole 20 mg capsule,delayed release 40 mg PO 0500 ACID REFLUX 05/12/22 warfarin 2 mg tablet 2 mg PO QHS BLOOD THINNER 05/12/22 enoxaparin 150 mg/mL subcutaneous syringe 150 mg subcut Q12@0600,1800 #10 mL 05/17/22 levofloxacin 500 mg tablet 500 mg PO DAILY #5 tabs 05/17/22 metronidazole 500 mg tablet 500 mg PO TID #14 tabs 05/17/22 ondansetron 4 mg disintegrating tablet 4 mg PO Q8H PRN nausea and vomiting #30 tabs 05/17/22 Hospital Course Operations - (I&D hematoma left lower extremity by ER) Procedures - (CT scan left lower extremity) Summary of Care Provided Minutes Spent on Discharge: 38 Hospital Course: Ms. Carter is a 46-year-old white female who presented to the emergency department at [facility] after being sent from the wound center at [facility] due to increased swelling and redness in her left lower extremity. The patient reported on admission that had worsened over the 2 days prior to presentation and she denied any trauma to that leg. 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 Cultures were obtained the week prior to presentation and she was placed on erythromycin at that time. Outpatient cultures on 05/05/2022 grew MRSA, group G strep, corynebacterium, and an anaerobic cocci. She was found to have a hematoma and this was I&D and sent for culture in the emergency department. Culture of this fluid was negative at the time of discharge. He was initially started on meropenem and did not get dramatically better after the first 24 hours of admission so vancomycin was ordered and a CT of the leg was done to assess for deeper infections. CT on the showed demineralization as well as posttraumatic and postsurgical changes of the left ankle with secondary osteoarthritis as well as mild to moderate subcutaneous edema but no abscesses or subcu air. She was maintained on vancomycin and meropenem and given her multiple antibiotic intolerances infectious disease was consulted. The erythema slowly retracted and she was able to ambulate with a walker. Infectious disease recommended Levaquin and Flagyl to complete 5 more days of antibiotics at the time of discharge and these prescriptions were sent to her pharmacy. Given her issues with oral antibiotics causing nausea, vomiting, and diarrhea she was also discharged home with Zofran and was already on Ultram for pain at baseline. She has standing appointment at the wound center on Sunday and was encouraged to make to keep this appointment. Her INR was subtherapeutic throughout her stay. She was started on subcu Lovenox as she has a history of DVT and PE. INR was 1.5 at the time of discharge so she will be discharged with Lovenox to bridge until her Coumadin is therapeutic between 2 and 3 for 48 hours. I have asked her to have her INR checked on Sunday by her outpatient provider and continue her home Coumadin dosing with oral antibiotics to be continued. We did obtain a hemoglobin A1c during her hospital course and was found to be 5.7 meaning that she is insulin resistant but not diabetic. She is to follow-up with her primary care physician in 1 week for checkup and have her INR checked on Sunday and keep her appointment at the wound center for Sunday. Discharge diagnoses: Left lower extremity cellulitis Left lower extremity polymicrobial wound infection Subtherapeutic INR with history of PE and DVT Chronic anemia Left lower extremity hematoma-resolved Thrombocytopenia-resolved JOSEPH GERD Morbid obesity Physical Exam Const alert, oriented x3, no apparent distress, healthy appearing and well nourished Constitutional Narrative: Morbidly obese white female sitting up in bed, wound nurse at bedside, appears comfortable, currently has just finished using the eating breakfast, nursing at bedside, nontoxic General Appearance: cooperative, comfortable, well kempt and well developed Orientation / Consciousness: awake, oriented to person, oriented to place and oriented to time Exam Limitations: no limitations Nutritional Appearance: morbidly obese HEENT normocephalic, head/scalp atraumatic, hearing grossly normal bilaterally and moist oral mucous membranes HEENT Narrative: Mallampati 3-4, no thrush Eyes PERRL, EOMs intact bilaterally and conjunctivae normal Eyes Narrative: No scleral icterus Neck no lymphadenopathy, supple and thyroid normal Neck Narrative: Neck is short and thick General: trachea midline Resp normal respiratory effort, no retractions, no use of accessory muscles and clear to auscultation bilaterally Auscultation: Negative for crackles, rales, rhonchi or wheezes Cardio regular rate, regular rhythm, S1 normal heart sound, S2 normal heart sound, no murmurs, no rub, no gallops and no clicks GI normal to inspection, nondistended, normoactive bowel sounds, soft to palpation, non-tender and non-distended Extremity no clubbing, cyanosis or edema Extremity Narrative: Left lower extremity with chronic lymphedema as well as acute swelling, dressing in place on my arrival and was removed by wound care dressing while was present-erythema has retracted significantly, no significant wounds other than a small crack that appears to be now closed on her left heel laterally Skin no rashes or lesions noted, skin turgor normal and no jaundice Skin Narrative: See above Neuro oriented x3, CN's II-XII intact bilaterally, moves all extremities, no focal motor deficits and no sensory deficits noted Neuro Narrative: Left lower extremity is hypersensitive but improved Sensorium / Orientation: awake, alert, oriented to person, oriented to place and oriented to time Speech: speech normal Psych affect normal Weight / BMI Weight Weight: 147.69 kg Body Mass Index (BMI) 51.0 ABG / Lab / Microbiology Data Result Diagrams: 05/17/22 06:50 05/17/22 06:50 Laboratory: Laboratory Results - last 24 hr 05/16/22 17:57: Vancomycin Trough 14.7 05/17/22 06:50: PT 17.8 H, INR 1.5 05/17/22 06:50: WBC 6.8, RBC 3.19 L, Hgb 9.6 L, Hct 29.3 L, MCV 91.8, MCH 30.1, MCHC 32.8, RDW Std Deviation 47.0 H, RDW Coeff of Julissa 13.8, Plt Count 156, MPV 10.7, Immature Gran % (Auto) 1.300 H, Neut % (Auto) 75.1 H, Lymph % (Auto) 13.4 L, [place] % (Auto) 7.2, Eos % (Auto) 2.6, Baso % (Auto) 0.4, Absolute Neuts (auto) 5.1, Absolute Lymphs (auto) 0.91, Nucleated RBC % 0 05/17/22 06:50: Sodium 141, Potassium 4.1, Chloride 109 H, Carbon Dioxide 23.0, Anion Gap 9, BUN 16, Creatinine 0.77, Estim Creat Clear Calc 89.72, Est GFR (MDRD) Af Amer 104, Est GFR (MDRD) Non-Af 86, BUN/Creatinine Ratio 20.9 H, Glucose 91, Calcium 8.5 Microbiology: Microbiology 05/12/22 15:56 Interface Orders Gram Stain - Final 05/12/22 15:56 Interface Orders Body Fluid Culture - Final No growth aerobically. 05/12/22 15:56 Interface Orders Anaerobic Culture - Preliminary No growth in 48 hours. D/C Instructions Discharge Diet: Low fat / Low cholesterol Discharge Activity: Return to Normal Activity and Use Walker Return to work on: 05/19/22 Meaningful Use Info Meaningful Use Diagnoses (Choose all that apply): None applicable Discharge Plan Admission Admit Date/Time: 05/13/22 12:28 Primary Reason for Your Visit: Left lower extremity cellulitis Attending Provider: Lalitha Vance Primary Care Provider: Karly oBse Consulting Providers: Олег Singh ; Cody Horn ; Brenton Landeros Instructions Additional Instructions / Restrictions: 1. Complete antibiotics as prescribed 2. Follow-up at wound center on Sunday as scheduled 3. Please have INR checked on 05/19/2022 by her outpatient provider -Continue Lovenox until instructed to discontinue--> ideally INR would be 2-3 for 2 consecutive days prior to discontinuing Lovenox to assure Coumadin was therapeutic Discharge Orders/Prescriptions Prescriptions: New ondansetron 4 mg tablet,disintegrating 4 mg PO Q8H PRN (Reason: nausea and vomiting) Qty: 30 1RF enoxaparin 150 mg/mL Syringe 150 mg subcut Q12@0600,1800 Qty: 10 1RF Rx Instructions: Will need to continue twice daily until INR is 2.0 to 3.0 x 2 consecutive days levofloxacin 500 mg tablet 500 mg PO DAILY Qty: 5 0RF metronidazole 500 mg tablet 500 mg PO TID Qty: 14 0RF Continued diphenoxylate-atropine [Lomotil] 2.5-0.025 mg tablet 2 tab PO 4X/DAY zinc sulfate 220 MG capsule 220 mg PO QHS calcium carbonate-vitamin D3 1 EACH capsule 1 tab PO BID ferrous sulfate 325 MG tablet 325 mg PO BID ergocalciferol (vitamin D2) [Vitamin D2] 50,000 UNIT capsule 50,000 unit PO MO ascorbic acid (vitamin C) [Vitamin C] 1,000 MG tablet 3,000 mg PO BID magnesium oxide 400 MG tablet 400 mg PO BID acetaminophen 500 MG tablet 1,000 mg PO Q6H PRN (Reason: Pain) aspirin 81 MG tablet,chewable 2 tab PO DAILY Probiotic (B. coagulans) 10 billion cell Capsule,Delayed Release(Dr/Ec) 1 cell PO DAILY duloxetine 60 mg Capsule, Delayed Rel Sprinkle 60 mg PO QHS diclofenac sodium 1 % Gel 2 - 4 g TOPICAL UD tramadol 50 mg Tablet 50 - 100 mg PO Q6H PRN (Reason: Pain) warfarin 2 mg tablet 2 mg PO QHS omeprazole 20 mg capsule,delayed release(DR/EC) 40 mg PO 0500 metoclopramide HCl 10 mg tablet 10 mg PO QHS melatonin 5 mg Tablet 5 mg PO QHS cholecalciferol (vitamin D3) 50 mcg (2,000 unit) Tablet 6,000 unit PO BID melatonin 10 mg Tablet 10 mg PO QHS Discontinued erythromycin 500 mg tablet,delayed release (DR/EC) 500 mg PO BID Referrals / Follow Up: Karly Bose DO [Primary Care Provider] - Within 1 Week Disposition Disposition (needs filled in before D/C Order can be placed): Home, Self Care Charges/Coding Visit Charges Inpatient E&M: 55503 Disch Hosp >30min
[2022-05-17 11:55] VITALS: BP 136/76; PULSE 100; RESP 18; TEMP 37.7; O2SAT 95
--- NOTE | 2022-05-17 13:26 | CASEMGMT ---
FRANK CM in to pt room, pt sitting up in chair in no distress. Pt denies any homegoing needs. Pt will be ordered PO atb. Answered her questions regarding a pattern puncher. Pt has had lovenox before and states she is able to give to herself. TC to [facility], spoke with LAITH, pt copay is zero for all meds ordered including lovenox.
--- NOTE | 2022-05-17 13:33 | PCM.PN.ID ---
Physical Exam Narrative Feeling better, leg less sore, no fever Const alert and no apparent distress Eyes PERRL and EOMs intact bilaterally Resp normal air movement and clear to auscultation bilaterally Cardio regular rate and regular rhythm GI soft to palpation, non-tender and non-distended Skin Skin Narrative: BLE wrapped ID ID: Route of nutrition/ use of supplements: [] Nutritional Intake: [] IV Site: [] Moore Catheter: [] Assessment & Plan Assessment/Plan (1) Cellulitis of left lower extremity: PLAN: Recent wound cxs with PsA, MRSA, strep, corynebacter, and anaerobes. On vanc/reyes, improving. Reports upset stomach with amox/keflex/bactrim. Ok for home with 5 days levaquin/flagyl. Will follow
[2022-05-17 14:00] VITALS: BP 138/72; PULSE 99; RESP 18; TEMP 37.2; O2SAT 95
--- NOTE | 2022-05-17 15:40 | PHA.DC.MR ---
Pharmacy Service has performed discharge medication reconciliation for this patient. The patient's discharge medication list was reviewed for discrepancies and discrepancies were resolved. Home Medications calcium carbonate 600 mg-vitamin D3 12.5 mcg (500 unit) capsule 1 tab PO BID SUPPLEMENT 12/13/17 ferrous sulfate 325 mg (65 mg iron) tablet 325 mg PO BID anemia 12/13/17 zinc sulfate 50 mg zinc (220 mg) capsule 220 mg PO QHS SUPPLEMENT 12/13/17 acetaminophen 500 mg tablet 1,000 mg PO Q6H PRN Pain 12/21/17 ascorbic acid (vitamin C) 1,000 mg tablet (Vitamin C) 3,000 mg PO BID SUPPLEMENT 12/21/17 ergocalciferol (vitamin D2) 1,250 mcg (50,000 unit) capsule (Vitamin D2) 50,000 unit PO MO supplement 12/21/17 magnesium oxide 400 mg PO BID SUPPLEMENT 12/21/17 aspirin 81 mg chewable tablet 2 tab PO DAILY HEART HEALTH 04/22/20 Bacillus coagulans 10 billion cell capsule,delayed release (Probiotic (B. coagulans)) 1 cell PO DAILY GUT HEALTH 07/08/21 duloxetine 60 mg capsule,delayed release sprinkle 60 mg PO QHS DEPRESSION 07/08/21 diphenoxylate-atropine 2.5 mg-0.025 mg tablet (Lomotil) 2 tab PO 4X/DAY IBS 07/27/21 diclofenac sodium 1 % topical gel 2 - 4 g topical UD PAIN 12/05/21 tramadol 50 mg tablet 50 - 100 mg PO Q6H PRN Pain 03/06/22 cholecalciferol (vitamin D3) 50 mcg (2,000 unit) tablet 6,000 unit PO BID SUPPLEMENT 05/12/22 melatonin 10 mg tablet 10 mg PO QHS 05/12/22 melatonin 5 mg tablet 5 mg PO QHS sleep 05/12/22 metoclopramide HCl 10 mg tablet 10 mg PO QHS 05/12/22 omeprazole 20 mg capsule,delayed release 40 mg PO 0500 ACID REFLUX 05/12/22 warfarin 2 mg tablet 2 mg PO QHS BLOOD THINNER 05/12/22 enoxaparin 150 mg/mL subcutaneous syringe 150 mg subcut Q12@0600,1800 #10 mL 05/17/22 levofloxacin 500 mg tablet 500 mg PO DAILY #5 tabs 05/17/22 metronidazole 500 mg tablet 500 mg PO TID #14 tabs 05/17/22 ondansetron 4 mg disintegrating tablet 4 mg PO Q8H PRN nausea and vomiting #30 tabs 05/17/22
== END 2022-05-17 15:46 | disposition home or self-care (01) | DRG 603 ==
LOC: ED 16:11 → MS3 17:24
PROVIDERS: Hospitalist; Admitting Provider Internal Medicine; Emergency Provider Emergency Medicine; PCP Family Medicine; Visit Provider Internal Medicine
DX: L03.116 Cellulitis of left lower limb (principal); D68.59 Other primary thrombophilia; Z68.43 Body mass index [BMI] 50.0-59.9, adult; L97.422 Non-pressure chronic ulcer of left heel and midfoot with fat layer exposed; I83.224 Varicose veins of left lower extremity with both ulcer of heel and midfoot and inflammation; D69.6 Thrombocytopenia, unspecified; E66.01 Morbid (severe) obesity due to excess calories; Z93.2 Ileostomy status; G47.33 Obstructive sleep apnea (adult) (pediatric); K21.9 Gastro-esophageal reflux disease without esophagitis; S80.12XA Contusion of left lower leg, initial encounter; Q66.89 Other specified congenital deformities of feet; I89.0 Lymphedema, not elsewhere classified; F17.210 Nicotine dependence, cigarettes, uncomplicated; M16.0 Bilateral primary osteoarthritis of hip; M19.272 Secondary osteoarthritis, left ankle and foot; X58.XXXA Exposure to other specified factors, initial encounter; B95.62 Methicillin resistant Staphylococcus aureus infection as the cause of diseases classified elsewhere; B95.5 Unspecified streptococcus as the cause of diseases classified elsewhere; Z79.891 Long term (current) use of opiate analgesic; Z79.82 Long term (current) use of aspirin; Z79.01 Long term (current) use of anticoagulants; Z79.899 Other long term (current) drug therapy; Z86.718 Personal history of other venous thrombosis and embolism; Z86.711 Personal history of pulmonary embolism
CPT/HCPCS: 36415; 73701; 80048; 80202; 83036; 83605; 85025; 85610; 87070; 87075; 87205; 93971; 97110; 97116; 97162; 97165; 97530; 97535; 97802; 99213; 99283; J2185; J7030; J7040; Q9967; A4216; G0463; J0295

== ENCOUNTER 2022-05-19 11:00 | Outpatient (RCR) | payer MEDICARE, MEDICAID, SELFPAY ==
[2022-04-23 00:06] VITALS: BP 139/60; PULSE 69; RESP 18; TEMP 36.2; BMI 112.3
[2022-05-05 12:40] VITALS: BP 129/84; PULSE 116; TEMP 36.2; BMI 112.3
--- NOTE | 2022-05-05 14:30 | PCM.WC.PN ---
History of Present Illness Date of Service: 05/05/22 Chief Complaint: ulcer of left heel History of Wound: This is a 46-year-old morbidly obese female who presents today for treatment of a nonhealing ulcer of her left heel which was noticed this week by podiatry. She does not know how long it has been present. Since treatment at podiatry she has had mild greenish drainage from ulcer. 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 She also fell and injured her right senior on her walker on Sunday. She has been dressing the wound with hydrogel and adaptic. She has not been able to change dressings regularly. She is on chronic anticoagulation with warfarin and is obese. She has no odor, erythema. Subjective Subjective Melanie's senior is healed and her left heel is worse and more erythematous. She continues to have moderate drainage. Her wound culture was positive for Pseudomonas and for anaerobic bacteria. She completed treatment with Ciprofloxacin and Flagyl. She is tolerating this treatment well. She denies any increased drainage, odor or erythema. Objective Data Objective Data Vital Signs: Vital Signs Temp Pulse Resp BP 97.2 F L 116 H 18 129/84 H 05/05/22 12:40 05/05/22 12:40 04/23/22 00:06 05/05/22 12:40 Weight: 335 kg Body Mass Index (BMI) 112.3 Physical Exam Const alert, oriented x3 and no apparent distress General Appearance: cooperative and comfortable HEENT normocephalic and head/scalp atraumatic Resp normal respiratory effort Effort and Inspection: able to speak in complete sentences Cardio regular rate and regular rhythm Skin Wounds: wounds noted Wound Narrative: as in clinical panel Psych mental status grossly normal, thought process normal, cooperative and affect normal Debridement Note Debridement Note Wound debrided: left heel Laterality: Left Type of Debridement: Selective debridement Anesthesia Used: 4% Lidocaine Solution and 5% Lidocaine Gel Depth: Down to and including healthy tissue and in the subcutaneous layer Percentage of wound debrided: 100 Instrument Used: - (gauze) Tissue Removed: Yellow slough, devitalized tissue Severity: Fat Layer Exposed Amount of bleeding with debridement: Mild Bleeding Controlled with: Compression and gauze Patient tolerated procedure: Patient tolerated procedure well Post-Debridement Measurements and Additional Note: Post-Debridement Measurements/Treatment WC - Nurse 1 - General Ulcer Assessment Start: 05/05/22 12:15 Freq: Status: Active Protocol: NILTON Activity Type Activity Date Activity User E-sign Co-sign Detail Recorded Client Recorded Date Recorded By Document 05/05/22 12:40 PIPER [id number] 05/05/22 12:42 WI 05/05/22 12:40 - Today's Visit Information Type of service Follow-up Visit (Physician/LAND USE PLANNER ) Arrival Mode Ambulatory Patient Identification Verified (Name & Yes ) Height and Weight Body Mass Index (BMI) 112.3 BMI Classification Obese Vital Signs Temperature (97.8 F-99.1 F) 97.2 F L Temperature Source Temporal Pulse Rate (60-100) 116 H Pulse Location Monitor Blood Pressure (90/60-120/80) 129/84 H Blood Pressure Mean (mm Hg) 99 Source Monitor History Since Last Visit- (Skip if this is Patient's initial visit) Have you changed medications since your No last visit? Any new allergies or adverse reactions No Had a fall/change in ADL's that may No increase risk of falls Signs or symptoms of abuse and/or No neglect since last visit Have you been in the hospital since your No last visit? Has dressing in place as prescribed Yes Has compression in place as prescribed N/A Has offloadiing in place as prescribed N/A Experienced any changes in pain level or No management Left Footwear Regular Shoe Right Footwear Regular Shoe Pain Scale: 0-10 Numeric Is Patient Pain Free? Yes - Nurse 1 - General Ulcer Measurement Start: 05/05/22 12:15 Freq: Status: Active Protocol: Activity Type Activity Date Activity User E-sign Co-sign Detail Recorded Client Recorded Date Recorded By Document 05/05/22 12:40 PIPER [id number] 05/05/22 12:42 WI 05/05/22 12:40 Wound Center Nurse 1 19. left posterior ankle -Combined with other wound No -Current Size (cm) - Length 1.5 -Current Size (cm) - Width 5 -Current Size (cm) - Depth 0.1 -Total Square Cm 7.5 -Photo Taken Yes -Undermining/Tunneling No -Circular Undermining No -Change in Wound Grade/Stage No -Exudate Amt Large -Exudate Type Serosanguineous -Wound Margin Distinct, Outline Attached -Granulation Amt Large (67-100%) -Granulation Quality Red -Slough/Fibrin Yes -Necrosis Amt Medium (34-66%) -Necrotic Tissue Type Adherent Slough -Structure Exposed N/A -Texture (Meg-wound Skin Appearance) Assessed, Excoriation -Moisture (Meg-wound Skin Appearance) Assessed, Maceration -Color (Meg-wound Skin Appearance) No Abnormality, Assessed -Temperature (Meg-wound Skin No Abnormality Appearance) (Pt Warm) -Tenderness on Palpation (Meg-wound No Skin Appearance) -Ulcer Cleansing Soap and Water -Foul Odor after Cleansing No -Anesthetic Used 4% Lidocaine Solution WC - Nurse 2 - General Ulcer CM Notes Start: 05/05/22 12:15 Freq: Status: Active Protocol: Activity Type Activity Date Activity User E-sign Co-sign Detail Recorded Client Recorded Date Recorded By Document 05/05/22 12:16 MW [id number] 05/05/22 12:23 MW 05/05/22 12:16 Wound Center Nurse 2 18. R senior cluster -Time 12:21 -Correct Patient Yes -Correct Side, Site, Position Yes -Correct Procedure Yes -Procedure Performed No -Post Debridement (cm) - Length 0 -Post Debridement (cm) - Width 0 -Post Debridement (cm) - Depth 0 -Total Square (Post) (cm) 0 -Wound/Ulcer Outcome Healed- Epithelialized #15 Mid Abdomen -Time 12:22 -Correct Patient Yes -Correct Side, Site, Position Yes -Correct Procedure Yes -Procedure Performed No -Post Debridement (cm) - Length 0 -Post Debridement (cm) - Width 0 -Post Debridement (cm) - Depth 0 -Total Square (Post) (cm) 0 -Wound/Ulcer Outcome Healed- Epithelialized 19. left posterior ankle -Time 12:17 -Correct Patient Yes -Correct Side, Site, Position Yes -Correct Procedure Yes -Procedure Performed Yes -Type of Procedure Debridement -Clinical Debridement Epidermis / Dermis -Tissue Removed Epidermis -Post Debridement (cm) - Length 2.0 -Post Debridement (cm) - Width 4.0 -Post Debridement (cm) - Depth 0.1 -Total Square (Post) (cm) 8.00 -Area of Debridement (cm) - Length 2.0 -Area of Debridement (cm) - Width 4.0 -Total Square (Area) (cm) 8.00 -Tunneling No -Undermining/Tunneling No -Circular Undermining No -Wound/Ulcer Outcome Not Healed -Ulcer Cleansing Rinsed/ Irrigated with Saline -Foul Odor after Cleansing No -Bioengineered Tissue No -Bleeding Controlled with Pressure -Treatment Response Procedure Tolerated Well -Offloading No -Debridement - Open, 1st 20sq cm Yes Pain Scale: 0-10 Numeric Is Patient Pain Free? Yes WC - Nurse 3 - General Ulcer D/C NN Start: 05/05/22 12:15 Freq: Status: Active Protocol: Activity Type Activity Date Activity User E-sign Co-sign Detail Recorded Client Recorded Date Recorded By Document 05/05/22 12:31 RB [id number] 05/05/22 12:32 RB 05/05/22 12:31 Wound Care Nurse 3 19. left posterior ankle -Ulcer Cleansing Rinsed/ Irrigated with Saline -Primary Dressing Applied Mepilex Border, NonAdherent Contact Layer, Promogran -Mepilex Border 1 -Promogran 1 Pain Scale: 0-10 Numeric Is Patient Pain Free? Yes WC - Visit Discharge Discharge Condition Stable Ambulatory Status Ambulatory, Walker Transportation Private Auto Medication Reconcilliation completed & No provided to patient/care provider Clinical Summary of Care Provided Yes Assessment/Plan Assessment/Plan (1) Obesity: CODE(S): E66.9 - Obesity, unspecified QUALIFIERS: Obesity type: unspecified obesity type Obesity classification: adult class 3 (BMI >= 40) Serious obesity comorbidity presence: without serious comorbidity Body mass index: BMI 50.0-59.9 Qualified Code(s): E66.01 - Morbid (severe) obesity due to excess calories; Z68.43 - Body mass index [BMI] 50.0-59.9, adult (2) Chronic ulcer of left foot with fat layer exposed: CODE(S): L97.522 - Non-pressure chronic ulcer of other part of left foot with fat layer exposed PLAN: Plan Melanie's right senior wound is healed and left heel ulcer is improving. These were evaluated and debrided today. She has had labs approx. 2 months ago to evaluate her nutrition and for diabetes which nutrition is adequate and A1C was less than 6.0%. Her left heel will be treated with hydrogel and adaptic and foam bordered dressing for protection. We discussed offloading of the site which she has been doing and we also encouraged increased protein intake, weight loss and proper cleansing of the ulcer to facilitate healing. Wound culture taken today. She was advised to call if there are any increased odor, pain, drainage or erythema. She will follow up in 1 week for wound care.
[2022-05-12 11:39] VITALS: BP 113/47; PULSE 110; RESP 18; TEMP 35.8; BMI 112.3
--- NOTE | 2022-05-12 11:49 | WC ---
Pt states LLE edema and redness started on Sunday. Rednnes and edema noted warmth and tendered noted and pain rated at 5.
--- NOTE | 2022-05-12 14:12 | PN.PCM_ITS ---
History of Present Illness Date of Service: 05/12/22 Chief Complaint: ulcer of left heel History of Wound: This is a 46-year-old morbidly obese female who presents today for treatment of a nonhealing ulcer of her left heel which was noticed this week by podiatry. She does not know how long it has been present. Since treatment at podiatry she has had mild greenish drainage from ulcer. 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 She also fell and injured her right senior on her walker on Sunday. She has been dressing the wound with hydrogel and adaptic. She has not been able to change dressings regularly. She is on chronic anticoagulation with warfarin and is obese. She has no odor, erythema. Subjective Subjective Melanie's left heel is unchanged but there is now erythema extending to below her knee with warmth and tenderness. Her wound culture was positive for multiple bacteria and she was started on Erythromycin for treatment on Sunday but has not had any improvement. She continues to have moderate drainage from her heel ulcer. She has also had chills, nausea and decreased appetite and fatigue this week. Objective Data Objective Data Vital Signs: Vital Signs Temp Pulse Resp BP 96.5 F L 110 H 18 113/47 L 05/12/22 11:39 05/12/22 11:39 05/12/22 11:39 05/12/22 11:39 Weight: 335 kg Body Mass Index (BMI) 112.3 Lab / Micro Data Micro: Microbiology 05/05/22 12:25 Wound Abcess - Ankle Gram Stain - Final 05/05/22 12:25 Wound Abcess - Ankle Wound Culture - Final Meth. resistant Staph. aureus Streptococcus group G Corynebacterium striatum 05/05/22 12:25 Wound Abcess - Ankle Anaerobic Culture - Final Anaerobic cocci Physical Exam Const alert, oriented x3 and no apparent distress Nutritional Appearance: morbidly obese HEENT normocephalic and head/scalp atraumatic Resp normal respiratory effort Effort and Inspection: able to speak in complete sentences Cardio regular rate and regular rhythm Extremity General Extremity: edema bilateral lower extremity Details: moderate Skin General Skin Exam: erythema Wounds: wounds noted Wound Narrative: as in clinical panel Neuro oriented x3 and moves all extremities Debridement Note Debridement Note Wound debrided: left heel Laterality: Left No debridement was completed: No debridement was completed today (patient has cellulitis and referred to ER) Post-Debridement Measurements and Additional Note: Post-Debridement Measurements/Treatment WC - Nurse 1 - General Ulcer Assessment Start: 05/05/22 12:15 Freq: Status: Active Protocol: NILTON Activity Type Activity Date Activity User E-sign Co-sign Detail Recorded Client Recorded Date Recorded By Document 05/05/22 12:40 AK [id number] 05/05/22 12:42 AK Document 05/12/22 11:39 RB [id number] 05/12/22 11:52 RB 05/05/22 05/12/22 12:40 11:39 WC - Today's Visit Information Type of service Follow-up Visit Follow-up Visit (Physician/AQUATIC HABITAT BIOLOGIST (Physician/AQUATIC HABITAT BIOLOGIST ) ) Arrival Mode Ambulatory Ambulatory, Walker Transfer Assistance None Patient Identification Verified (Name & Yes Yes ) Patient Requires Transmission-Based No Precautions Height and Weight Body Mass Index (BMI) 112.3 112.3 BMI Classification Obese Obese Vital Signs Temperature (97.8 F-99.1 F) 97.2 F L 96.5 F L Temperature Source Temporal Temporal Pulse Rate (60-100) 116 H 110 H Pulse Location Monitor Monitor Respiratory Rate (12-18) 18 Respiratory rate source Observation Blood Pressure (90/60-120/80) 129/84 H 113/47 L Blood Pressure Mean (mm Hg) 99 69 Source Monitor Monitor Position Semi-Fowlers Blood Pressure Location Left Arm History Since Last Visit- (Skip if this is Patient's initial visit) Have you changed medications since your No No last visit? Any new allergies or adverse reactions No No Had a fall/change in ADL's that may No No increase risk of falls Signs or symptoms of abuse and/or No No neglect since last visit Have you been in the hospital since your No No last visit? Has dressing in place as prescribed Yes Yes Has compression in place as prescribed N/A No Has offloadiing in place as prescribed N/A Yes Experienced any changes in pain level or No No management Left Footwear Regular Shoe Right Footwear Regular Shoe Pain Scale: 0-10 Numeric Is Patient Pain Free? Yes No LLE -Description Aching -Intensity 5 -Duration (hours) Acute -Pain Behavior Withdrawal from Touch -Pain Aggravating Factors ADL's -Alleviating Factors/Interventions None WC - Nurse 1 - General Ulcer Measurement Start: 05/05/22 12:15 Freq: Status: Active Protocol: Activity Type Activity Date Activity User E-sign Co-sign Detail Recorded Client Recorded Date Recorded By Document 05/05/22 12:40 AK [id number] 05/05/22 12:42 AK Document 05/12/22 11:39 RB [id number] 05/12/22 11:52 RB 05/05/22 05/12/22 12:40 11:39 Wound Center Nurse 1 19. left posterior ankle -Combined with other wound No No -Current Size (cm) - Length 1.5 0.1 -Current Size (cm) - Width 5 0.1 -Current Size (cm) - Depth 0.1 0.1 -Total Square Cm 7.5 0.01 -Photo Taken Yes Yes -Tunneling No -Undermining/Tunneling No No -Circular Undermining No No -Change in Wound Grade/Stage No -Exudate Amt Large Medium -Exudate Type Serosanguineous Serosanguineous -Wound Margin Distinct, Distinct, Outline Outline Attached Attached -Granulation Amt Large (67-100%) Medium (34-66%) -Granulation Quality Red [place] -Slough/Fibrin Yes Yes -Necrosis Amt Medium (34-66%) Medium (34-66%) -Necrotic Tissue Type Adherent Slough Eschar -Structure Exposed N/A N/A -Texture (Meg-wound Skin Appearance) Assessed, Assessed, Excoriation Localized Edema -Moisture (Meg-wound Skin Appearance) Assessed, Assessed Maceration -Color (Meg-wound Skin Appearance) No Abnormality, Erythema Assessed -Temperature (Meg-wound Skin No Abnormality No Abnormality Appearance) (Pt Warm) (Pt Warm) -Tenderness on Palpation (Meg-wound No No Skin Appearance) -Ulcer Cleansing Soap and Water Wound Cleanser -Foul Odor after Cleansing No No -Anesthetic Used 4% Lidocaine 5% Lidocaine Solution Gel Lower Limb Edema Present Yes Left Calf (cm) 46.5 Left Ankle (cm) 30 05/12/22 11:49 Wound Center by Bekah Gan Pt states LLE edema and redness started on Sunday. Rednnes and edema noted warmth and tendered noted and pain rated at 5. Initialized on 05/12/22 11:49 - END OF NOTE WC - Nurse 2 - General Ulcer CM Notes Start: 05/05/22 12:15 Freq: Status: Active Protocol: Activity Type Activity Date Activity User E-sign Co-sign Detail Recorded Client Recorded Date Recorded By Document 05/05/22 12:16 MW [id number] 05/05/22 12:23 MW Document 05/12/22 12:41 MW [id number] 05/12/22 12:50 MW 05/05/22 05/12/22 12:16 12:41 Wound Center Nurse 2 18. R senior cluster -Time 12:21 -Correct Patient Yes -Correct Side, Site, Position Yes -Correct Procedure Yes -Procedure Performed No -Post Debridement (cm) - Length 0 -Post Debridement (cm) - Width 0 -Post Debridement (cm) - Depth 0 -Total Square (Post) (cm) 0 -Wound/Ulcer Outcome Healed- Epithelialized #15 Mid Abdomen -Time 12:22 -Correct Patient Yes -Correct Side, Site, Position Yes -Correct Procedure Yes -Procedure Performed No -Post Debridement (cm) - Length 0 -Post Debridement (cm) - Width 0 -Post Debridement (cm) - Depth 0 -Total Square (Post) (cm) 0 -Wound/Ulcer Outcome Healed- Epithelialized 19. left posterior ankle -Time 12:17 12:42 -Correct Patient Yes Yes -Correct Side, Site, Position Yes Yes -Correct Procedure Yes Yes -Procedure Performed Yes No -Type of Procedure Debridement -Clinical Debridement Epidermis / Dermis -Tissue Removed Epidermis -Post Debridement (cm) - Length 2.0 0.1 -Post Debridement (cm) - Width 4.0 0.1 -Post Debridement (cm) - Depth 0.1 0.1 -Total Square (Post) (cm) 8.00 0.01 -Area of Debridement (cm) - Length 2.0 -Area of Debridement (cm) - Width 4.0 -Total Square (Area) (cm) 8.00 -Tunneling No -Undermining/Tunneling No No -Circular Undermining No No -Wound/Ulcer Outcome Not Healed Not Healed -Ulcer Cleansing Rinsed/ Irrigated with Saline -Foul Odor after Cleansing No -Bioengineered Tissue No -Bleeding Controlled with Pressure -Treatment Response Procedure Tolerated Well -Offloading No -Debridement - Open, 1st 20sq cm Yes Pain Scale: 0-10 Numeric Is Patient Pain Free? Yes Yes WC - Nurse 3 - General Ulcer D/C NN Start: 05/05/22 12:15 Freq: Status: Active Protocol: Activity Type Activity Date Activity User E-sign Co-sign Detail Recorded Client Recorded Date Recorded By Document 05/05/22 12:31 RB [id number] 05/05/22 12:32 RB Document 05/12/22 13:05 DL [id number] 05/12/22 13:08 DL 05/05/22 05/12/22 12:31 13:05 Wound Care Nurse 3 19. left posterior ankle -Ulcer Cleansing Rinsed/ Rinsed/ Irrigated with Irrigated with Saline Saline -Foul Odor after Cleansing No -Primary Dressing Applied Mepilex Border, NonAdherent NonAdherent Contact Layer Contact Layer, Promogran -Other Dressing ABD -Primary Dressing Covered/Secured with Dry Gauze & Roll Gauze, Secured with Tape -Mepilex Border 1 -Promogran 1 Treatment Response Procedure Tolerated Well Pain Scale: 0-10 Numeric Is Patient Pain Free? Yes Yes WC - Visit Discharge Discharge Condition Stable Stable Ambulatory Status Ambulatory, Ambulatory, Walker Walker Transportation Private Auto Private Auto Accompanied by family Medication Reconcilliation completed & No provided to patient/care provider Clinical Summary of Care Provided Yes Notes: Pt to report to ER today after her WC appt with Dr. Bose. Assessment/Plan Assessment/Plan (1) Liver disease: CODE(S): K76.9 - Liver disease, unspecified (2) Esophageal varices: CODE(S): I85.00 - Esophageal varices without bleeding (3) Venous insufficiency of both lower extremities: CODE(S): I87.2 - Venous insufficiency (chronic) (peripheral) (4) History of pulmonary embolism: CODE(S): Z86.711 - Personal history of pulmonary embolism (5) Morbid obesity: CODE(S): E66.01 - Morbid (severe) obesity due to excess calories (6) Status post club foot correction at : CODE(S): Z98.890 - Other specified postprocedural states; Z87.76 - Perso nal history of (corrected) congenital malformations of integument, limbs and musculoskeletal system (7) 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 She was referred to the ER and no debridement was performed today. She has had labs approx. 2 months ago to evaluate her nutrition and for diabetes which nutrition is adequate and A1C was less than 6.0%. Her left heel will be treated with hydrogel and adaptic and foam bordered dressing for protection. We discussed offloading of the site which she has been doing and we also encouraged increased protein intake, weight loss and proper cleansing of the ulcer to facilitate healing. Wound culture results were reviewed with her and she has been taking Erythromycin 500 mg BID as prescribed since 05/10/22. She was advised to call if there are any increased odor, pain, drainage or erythema. She will follow up in 1 week for wound care.
[2022-05-19 11:00] VITALS: BP 130/68; PULSE 98; RESP 16; TEMP 36; BMI 112.3
--- NOTE | 2022-05-19 11:09 | WC ---
Pt swelling has decreased. Pt was in the Hospital 5days for cellulitis.
--- NOTE | 2022-05-19 12:57 | PN.PCM_ITS ---
History of Present Illness Date of Service: 05/19/22 Chief Complaint: ulcer of left heel History of Wound: This is a 46-year-old morbidly obese female who presents today for treatment of a nonhealing ulcer of her left heel which was noticed this week by podiatry. She does not know how long it has been present. Since treatment at podiatry she has had mild greenish drainage from ulcer. 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 She also fell and injured her right senior on her walker on Sunday. She has been dressing the wound with hydrogel and adaptic. She has not been able to change dressings regularly. She is on chronic anticoagulation with warfarin and is obese. She has no odor, erythema. Subjective Subjective Melanie's left heel is is healed. She was hospitalized and treated with IV antibiotics for cellulitis from Sunday to Sunday. The erythema has receded to her mid senior and she continues with warmth and tenderness especially over her lateral left ankle. She has one day left of Levofloxacin and several days of Metronidazole. She is feeling better overall except for pain in her left ankle. Objective Data Objective Data Vital Signs: Vital Signs Temp Pulse Resp BP 96.8 F L 98 16 130/68 H 05/19/22 11:00 05/19/22 11:00 05/19/22 11:00 05/19/22 11:00 Weight: 335 kg Body Mass Index (BMI) 112.3 Lab / Micro Data Micro: Microbiology 05/05/22 12:25 Wound Abcess - Ankle Gram Stain - Final 05/05/22 12:25 Wound Abcess - Ankle Wound Culture - Final Meth. resistant Staph. aureus Streptococcus group G Corynebacterium striatum 05/05/22 12:25 Wound Abcess - Ankle Anaerobic Culture - Final Anaerobic cocci Physical Exam Const alert, oriented x3 and no apparent distress Nutritional Appearance: morbidly obese HEENT normocephalic and head/scalp atraumatic Resp normal respiratory effort Effort and Inspection: able to speak in complete sentences Cardio regular rate and regular rhythm Extremity General Extremity: edema bilateral lower extremity Details: moderate Skin General Skin Exam: erythema Wounds: wounds noted Wound Narrative: as in clinical panel Neuro oriented x3 and moves all extremities Debridement Note Debridement Note Wound debrided: left heel Laterality: Left No debridement was completed: No debridement was completed today (ulcer heeled) Post-Debridement Measurements and Additional Note: Post-Debridement Measurements/Treatment WC - Nurse 1 - General Ulcer Assessment Start: 05/05/22 12:15 Freq: Status: Active Protocol: NILTON Activity Type Activity Date Activity User E-sign Co-sign Detail Recorded Client Recorded Date Recorded By Document 05/05/22 12:40 AK [id number] 05/05/22 12:42 AK Document 05/12/22 11:39 RB [id number] 05/12/22 11:52 RB Document 05/19/22 11:00 ML [id number] 05/19/22 11:10 ML 05/05/22 05/12/22 05/19/22 12:40 11:39 11:00 WC - Today's Visit Information Type of service Follow-up Visit Follow-up Visit Follow-up Visit (Physician/GRAPHIC DESIGN INTERN (Physician/GRAPHIC DESIGN INTERN (Physician/GRAPHIC DESIGN INTERN ) ) ) Arrival Mode Ambulatory Ambulatory, Ambulatory, Walker Walker Transfer Assistance None None Patient Identification Verified (Name & Yes Yes Yes ) Patient Requires Transmission-Based No No Precautions Safety Precautions NA Height and Weight Body Mass Index (BMI) 112.3 112.3 112.3 BMI Classification Obese Obese Obese Vital Signs Temperature (97.8 F-99.1 F) 97.2 F L 96.5 F L 96.8 F L Temperature Source Temporal Temporal Temporal Pulse Rate (60-100) 116 H 110 H 98 Pulse Location Monitor Monitor Monitor Respiratory Rate (12-18) 18 16 Respiratory rate source Observation Observation Blood Pressure (90/60-120/80) 129/84 H 113/47 L 130/68 H Blood Pressure Mean (mm Hg) 99 69 88 Source Monitor Monitor Monitor Position Semi-Fowlers Sitting Blood Pressure Location Left Arm Left Arm History Since Last Visit- (Skip if this is Patient's initial visit) Have you changed medications since your No No No last visit? Any new allergies or adverse reactions No No No Had a fall/change in ADL's that may No No No increase risk of falls Signs or symptoms of abuse and/or No No neglect since last visit Have you been in the hospital since your No No Yes last visit? Has dressing in place as prescribed Yes Yes Yes Has compression in place as prescribed N/A No N/A Has offloadiing in place as prescribed N/A Yes N/A Experienced any changes in pain level or No No No management Left Footwear Regular Shoe Regular Shoe Right Footwear Regular Shoe Regular Shoe Pain Scale: 0-10 Numeric Is Patient Pain Free? Yes No No LLE -Description Aching -Intensity 5 -Duration (hours) Acute -Pain Behavior Withdrawal from Touch -Pain Aggravating Factors ADL's -Alleviating Factors/Interventions None 05/19/22 11:09 Wound Center by Anabelle Mcintosh Pt swelling has decreased. Pt was in the Hospital 5days for cellulitis. Initialized on 05/19/22 11:09 - END OF NOTE WC - Nurse 1 - General Ulcer Measurement Start: 05/05/22 12:15 Freq: Status: Active Protocol: Activity Type Activity Date Activity User E-sign Co-sign Detail Recorded Client Recorded Date Recorded By Document 05/05/22 12:40 AK [id number] 05/05/22 12:42 AK Document 05/12/22 11:39 RB [id number] 05/12/22 11:52 RB Document 05/19/22 11:00 ML [id number] 05/19/22 11:10 ML 05/05/22 05/12/22 05/19/22 12:40 11:39 11:00 Wound Center Nurse 1 19. left posterior ankle -Combined with other wound No No -Current Size (cm) - Length 1.5 0.1 0.1 -Current Size (cm) - Width 5 0.1 0.1 -Current Size (cm) - Depth 0.1 0.1 0.1 -Total Square Cm 7.5 0.01 0.01 -Photo Taken Yes Yes -Tunneling No -Undermining/Tunneling No No -Circular Undermining No No -Change in Wound Grade/Stage No -Exudate Amt Large Medium None Present -Exudate Type Serosanguineous Serosanguineous -Wound Margin Distinct, Distinct, Outline Outline Attached Attached -Granulation Amt Large (67-100%) Medium (34-66%) None Present (0 %) -Granulation Quality Red [place]ondon -Slough/Fibrin Yes Yes No -Necrosis Amt Medium (34-66%) Medium (34-66%) None Present (0 %) -Necrotic Tissue Type Adherent Slough Eschar -Structure Exposed N/A N/A -Texture (Meg-wound Skin Appearance) Assessed, Assessed, Assessed Excoriation Localized Edema -Moisture (Meg-wound Skin Appearance) Assessed, Assessed Assessed Maceration -Color (Meg-wound Skin Appearance) No Abnormality, Erythema Assessed Assessed -Temperature (Meg-wound Skin No Abnormality No Abnormality No Abnormality Appearance) (Pt Warm) (Pt Warm) (Pt Warm) -Tenderness on Palpation (Meg-wound No No Skin Appearance) -Ulcer Cleansing Soap and Water Wound Cleanser Soap and Water -Foul Odor after Cleansing No No No -Anesthetic Used 4% Lidocaine 5% Lidocaine Solution Gel Lower Limb Edema Present Yes Right Calf (cm) 57 Right Ankle (cm) 30.7 Left Calf (cm) 46.5 48.2 Left Ankle (cm) 30 33 05/12/22 11:49 Wound Center by Bekah Gan Pt states LLE edema and redness started on Sunday. Rednnes and edema noted warmth and tendered noted and pain rated at 5. Initialized on 05/12/22 11:49 - END OF NOTE WC - Nurse 2 - General Ulcer CM Notes Start: 05/05/22 12:15 Freq: Status: Active Protocol: Activity Type Activity Date Activity User E-sign Co-sign Detail Recorded Client Recorded Date Recorded By Document 05/05/22 12:16 MW [id number] 05/05/22 12:23 MW Document 05/12/22 12:41 MW [id number] 05/12/22 12:50 MW Document 05/19/22 11:24 MW [id number] 05/19/22 11:29 MW 05/05/22 05/12/22 05/19/22 12:16 12:41 11:24 Wound Center Nurse 2 19. left posterior ankle -Time 12:17 12:42 11:24 -Correct Patient Yes Yes Yes -Correct Side, Site, Position Yes Yes Yes -Correct Procedure Yes Yes Yes -Procedure Performed Yes No -Type of Procedure Debridement -Type of Procedure Debridement -Clinical Debridement Epidermis / Dermis -Tissue Removed Epidermis -Post Debridement (cm) - Length 2.0 0.1 0 -Post Debridement (cm) - Width 4.0 0.1 0 -Post Debridement (cm) - Depth 0.1 0.1 0 -Total Square (Post) (cm) 8.00 0.01 0 -Area of Debridement (cm) - Length 2.0 -Area of Debridement (cm) - Width 4.0 -Total Square (Area) (cm) 8.00 -Tunneling No -Undermining/Tunneling No No -Circular Undermining No No -Wound/Ulcer Outcome Not Healed Not Healed Healed- Epithelialized -Ulcer Cleansing Rinsed/ Irrigated with Saline -Foul Odor after Cleansing No -Bioengineered Tissue No -Bleeding Controlled with Pressure -Treatment Response Procedure Tolerated Well -Offloading No -Debridement - Open, 1st 20sq cm Yes 18. R senior cluster -Time 12:21 -Correct Patient Yes -Correct Side, Site, Position Yes -Correct Procedure Yes -Procedure Performed No -Post Debridement (cm) - Length 0 -Post Debridement (cm) - Width 0 -Post Debridement (cm) - Depth 0 -Total Square (Post) (cm) 0 -Wound/Ulcer Outcome Healed- Epithelialized #15 Mid Abdomen -Time 12:22 -Correct Patient Yes -Correct Side, Site, Position Yes -Correct Procedure Yes -Procedure Performed No -Post Debridement (cm) - Length 0 -Post Debridement (cm) - Width 0 -Post Debridement (cm) - Depth 0 -Total Square (Post) (cm) 0 -Wound/Ulcer Outcome Healed- Epithelialized Pain Scale: 0-10 Numeric Is Patient Pain Free? Yes Yes Yes WC - Nurse 3 - General Ulcer D/C NN Start: 05/05/22 12:15 Freq: Status: Active Protocol: Activity Type Activity Date Activity User E-sign Co-sign Detail Recorded Client Recorded Date Recorded By Document 05/05/22 12:31 RB [id number] 05/05/22 12:32 RB Document 05/12/22 13:05 DL [id number] 05/12/22 13:08 DL 05/05/22 05/12/22 12:31 13:05 Wound Care Center Nurse 3 19. left posterior ankle -Ulcer Cleansing Rinsed/ Rinsed/ Irrigated with Irrigated with Saline Saline -Foul Odor after Cleansing No -Primary Dressing Applied Mepilex Border, NonAdherent NonAdherent Contact Layer Contact Layer, Promogran -Other Dressing ABD -Primary Dressing Covered/Secured with Dry Gauze & Roll Gauze, Secured with Tape -Mepilex Border 1 -Promogran 1 Treatment Response Procedure Tolerated Well Pain Scale: 0-10 Numeric Is Patient Pain Free? Yes Yes WC - Visit Discharge Discharge Condition Stable Stable Ambulatory Status Ambulatory, Ambulatory, Walker Walker Transportation Private Auto Private Auto Accompanied by family Medication Reconcilliation completed & No provided to patient/care provider Clinical Summary of Care Provided Yes Notes: Pt to report to ER today after her WC appt with Dr. Bose. Assessment/Plan Assessment/Plan (1) Liver disease: CODE(S): K76.9 - Liver disease, unspecified (2) Esophageal varices: CODE(S): I85.00 - Esophageal varices without bleeding (3) Venous insufficiency of both lower extremities: CODE(S): I87.2 - Venous insufficiency (chronic) (peripheral) (4) History of pulmonary embolism: CODE(S): Z86.711 - Personal history of pulmonary embolism (5) Morbid obesity: CODE(S): E66.01 - Morbid (severe) obesity due to excess calories (6) Status post club foot correction at : CODE(S): Z98.890 - Other specified postprocedural states; Z87.76 - Personal history of (corrected) congenital malformations of integument, limbs and musculoskeletal system (7) 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 No debridement necessary. Cellulitis is improving. Levaquin and Flagyl refilled and she will follow up in the office for continued treatment of her cellulitis. She will use tubigrip for compression. She has had labs approx. 2 months ago to evaluate her nutrition and for diabetes which nutrition is adequate and A1C was less than 6.0%. We discussed offloading of the site which she has been doing and we also encouraged increased protein intake, weight loss and proper cleansing of the ulcer to facilitate healing. She was advised to call if there are any increased odor, pain, drainage or erythema. She will follow up as needed for wound care.
== END 2022-05-23 23:59 | disposition home or self-care (01) ==
LOC: WC 11:00
PROVIDERS: PCP Family Medicine; Referring Provider Family Medicine; Visit Provider Family Medicine
DX: L97.422 Non-pressure chronic ulcer of left heel and midfoot with fat layer exposed (principal); I85.00 Esophageal varices without bleeding; Z93.2 Ileostomy status; E66.01 Morbid (severe) obesity due to excess calories; Z68.43 Body mass index [BMI] 50.0-59.9, adult; I83.12 Varicose veins of left lower extremity with inflammation; I89.0 Lymphedema, not elsewhere classified; L03.116 Cellulitis of left lower limb; Q66.89 Other specified congenital deformities of feet; K76.9 Liver disease, unspecified; R11.0 Nausea; G47.33 Obstructive sleep apnea (adult) (pediatric); Z79.82 Long term (current) use of aspirin; Z79.01 Long term (current) use of anticoagulants; Z79.899 Other long term (current) drug therapy
CPT/HCPCS: 87070; 87075; 87077; 87186; 87205; 97597; 99213; G0463

== ENCOUNTER → 2022-05-25 | Outpatient (CLI) | payer MEDICARE, MEDICAID, SELFPAY ==
[2022-05-25 17:47] LABS: Absolute Lymphocyte Count 1.77 X10^3/uL (0.83-4.51); Absolute Neutrophil Count 5.8 X10^3/uL (2.0-7.7); Basophil# 0.03 X10^3/uL; Basophil% 0.4 % (0-1); Eosinophil# 0.09 X10^3/uL; Eosinophils% 1.1 % (0-5); Hematocrit 32.4 % (37-47); Hemoglobin 10.6 g/dL (12.0-15.0); Lymphocyte # 1.77 X10^3/ul (0.83-4.51); Lymphocyte % 21.4 % (19-41); Mean Corp Hgb Conc 32.7 g/dL (32-36); Mean Corpuscular Hgb 30.1 pg (27.0-32.0); Mean Platelet Vol. 10.6 fl (6.2-12.0); Monocyte# 0.51 X10^3/uL; Monocyte% 6.2 % (0-10); NRBC Flagged by Analyzer 0 % (0-5); Neutrophil # 5.84 X10^3/uL (2.7-7.7); Neutrophil % 70.5 % (47-70); Platelet Count 235 K/mm3 (150-450); RBC Distribution Width CV 14.3 % (11.6-14.6); RBC Distribution Width SD 47.9 fl (35.1-43.9); Red Blood Count 3.52 M/mm3 (4.2-5.4); White Blood Count 8.3 K/mm3 (4.4-11.0)
[2022-05-25 18:04] LABS: Erythrocyte Sedimentation Rate 113 mm/hr (0-30)
[2022-05-25 18:13] LABS: ALB/GLOB Ratio 0.5 RATIO (0.9-2.4); AST(SGOT) 11 U/L (15-37); Alanine Aminotransfer ALT/SGPT 36 U/L (13-56); Albumin, Serum 2.9 g/dL (3.2-5.0); Alkaline Phosphatase 89 U/L (45-117); Anion Gap 7 (5-15); BUN 25 mg/dL (7-18); BUN/Creat Ratio 25.7 RATIO (10-20); Calcium,Total 8.9 mg/dL (8.5-10.1); Chloride 104 mmol/L (98-107); Creatinine, Serum 0.97 mg/dL (0.55-1.02); EST Glomerular Filtration Rate 65 mL/min (>60); Est Glom Filt Rate - Afr Amer 79 mL/min (>60); Globulin 5.3 g/dL (2.2-4.2); Glucose 100 mg/dL (74-106); Potassium 4.4 mmol/L (3.5-5.1); Protein, Total 8.2 g/dL (6.4-8.2); Sodium Level 139 mmol/L (136-145); Uric Acid 8.7 mg/dL (2.6-6.0)
== END | disposition home or self-care (01) ==
LOC: BFHLAB 16:33
PROVIDERS: PCP Family Medicine; Visit Provider Family Medicine
DX: L03.90 Cellulitis, unspecified (principal); M25.572 Pain in left ankle and joints of left foot; M79.605 Pain in left leg; Z51.81 Encounter for therapeutic drug level monitoring
CPT/HCPCS: 36415; 80053; 84550; 85025; 85652; 86140

== ENCOUNTER 2022-05-28 11:10 | Inpatient (IN) | payer MEDICARE, MEDICAID, SELFPAY ==
[2022-05-28 11:12] VITALS: BP 124/53; PULSE 101; RESP 18; TEMP 36; O2SAT 99; BMI 51.3
--- NOTE | 2022-05-28 11:43 | RAD_ITS ---
HISTORY: Injury, pain. Cellulitis over a month, worsening. TECHNIQUE: XR Foot Min 3 Views. COMPARISON: Left toes 02/17/2022. FINDINGS: BONES : No acute fracture or cortical erosion identified. JOINTS: No dislocation. Postoperative and posttraumatic changes of the ankle with chronic arthritis of the midfoot. SOFT TISSUES: Soft tissue swelling. RAD/Foot min 3 Views IMPRESSION: Soft tissue swelling of the left foot without acute osseous abnormality identified. 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 Electronically Signed: Cinthia Ro MD at 13:44 EST ,
--- NOTE | 2022-05-28 11:43 | RAD_ITS ---
HISTORY: Injury/Pain. TECHNIQUE: XR Tibia/Fibula 2 Views. COMPARISON: CT 05/13/2022. FINDINGS: BONES : No acute fracture or acute cortical erosion identified. Old trauma and secondary degenerative changes of the ankle. JOINTS: No dislocation. Joint spaces maintained. SOFT TISSUES: Diffuse soft tissue swelling and scattered small soft tissue calcification seen. RAD/Tibia & Fibula 2 Views IMPRESSION: Soft tissue swelling of the left leg without acute osseous abnormality identified. Old trauma and probable postoperative change of the ankle. Electronically Signed: Cinthia Ro MD at 13:46 EST ,
--- NOTE | 2022-05-28 11:44 | EX.ED.DYSGE1 ---
HPI <YAIR Villareal - Last Filed: 05/28/22 14:49> History of Present Illness Chief Complaint: Cellulitis Narrative Narrative: 46-year-old female presents with persistent redness and swelling in her left lower extremity. She states she had cellulitis since around the middle of April. She was admitted from 05/13 through 05/17 for IV antibiotics and was discharged with 5 days of Levaquin and Flagyl. She completed this but the redness did not significantly improve. She saw her primary care, Dr. Bose, 4 days ago who prescribed metronidazole and doxycycline. The patient feels like her foot now looks more red. No fever or chills. PFSH <YAIR Villareal - Last Filed: 05/28/22 14:49> [facility] Medical History Back pain CPAP (continuous positive airway pressure) dependence Current use of usp anticoagulation Depression Diverticulitis Easy bruising Excessive bleeding Gastric reflux History of blood transfusion History of Clostridium difficile infection History of DVT (deep vein thrombosis) History of edema History of GI bleed History of IBS Ileostomy in place Irritable bowel syndrome (IBS) Leg cramps Low iron Non-smoker Post-menopausal Pulmonary embolism Restless legs Shortness of breath on exertion Sleep apnea Walker as 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 Wears glasses Home Medications calcium carbonate 600 mg-vitamin D3 12.5 mcg (500 unit) capsule 1 tab PO BID SUPPLEMENT 12/13/17 [History Last Taken 05/11/22] ferrous sulfate 325 mg (65 mg iron) tablet 325 mg PO BID anemia 12/13/17 [History Last Taken 05/11/22] zinc sulfate 50 mg zinc (220 mg) capsule 220 mg PO QHS SUPPLEMENT 12/13/17 [History Last Taken 05/11/22] acetaminophen 500 mg tablet 1,000 mg PO Q6H PRN Pain 12/21/17 [History Last Taken 04/03/22 08:15] ascorbic acid (vitamin C) 1,000 mg tablet (Vitamin C) 3,000 mg PO BID SUPPLEMENT 12/21/17 [History Last Taken 05/11/22] ergocalciferol (vitamin D2) 1,250 mcg (50,000 unit) capsule (Vitamin D2) 50,000 unit PO MO supplement 12/21/17 [History Last Taken 05/08/22] magnesium oxide 400 mg PO BID SUPPLEMENT 12/21/17 [History Last Taken 05/11/22] aspirin 81 mg chewable tablet 2 tab PO DAILY HEART HEALTH 04/22/20 [History Last Taken 05/11/22] Bacillus coagulans 10 billion cell capsule,delayed release (Probiotic (B. coagulans)) 1 cell PO DAILY GUT HEALTH 07/08/21 [History Last Taken 05/11/22] duloxetine 60 mg capsule,delayed release sprinkle 60 mg PO QHS DEPRESSION 07/08/21 [History Last Taken 05/11/22] diphenoxylate-atropine 2.5 mg-0.025 mg tablet (Lomotil) 2 tab PO 4X/DAY IBS 07/27/21 [History Last Taken 05/11/22] diclofenac sodium 1 % topical gel 2 - 4 g topical UD PAIN 12/05/21 [History Last Taken 05/11/22] tramadol 50 mg tablet 50 - 100 mg PO Q6H PRN Pain 03/06/22 [History Last Taken 05/11/22] cholecalciferol (vitamin D3) 50 mcg (2,000 unit) tablet 6,000 unit PO BID SUPPLEMENT 05/12/22 [History Last Taken 05/11/22] melatonin 10 mg tablet 10 mg PO QHS 05/12/22 [History Last Taken 05/11/22] melatonin 5 mg tablet 5 mg PO QHS sleep 05/12/22 [History Last Taken 05/11/22] metoclopramide HCl 10 mg tablet 10 mg PO QHS 05/12/22 [History Last Taken 05/11/22] omeprazole 20 mg capsule,delayed release 40 mg PO 0500 ACID REFLUX 05/12/22 [History Last Taken 05/11/22 05:00] warfarin 2 mg tablet 5 mg PO QHS BLOOD THINNER 05/12/22 [History Last Taken 05/11/22] metronidazole 500 mg tablet 500 mg PO TID #14 tabs 05/17/22 [Rx Last Taken Unknown] Allergy/AdvReac Type Severity Reaction Status Date / Time latex Allergy Rash Verified 05/28/22 11:11 amoxicillin AdvReac Nausea/Vom/ Verified 05/28/22 11:11 Diarrhea cephalexin AdvReac Nausea/Vom/ Verified 05/28/22 11:11 Diarrhea naproxen AdvReac Nausea/Vom/ Verified 05/28/22 11:11 Diarrhea sulfamethoxazole AdvReac Nausea/Vom/ Verified 05/28/22 11:11 [From Bactrim] Diarrhea trimethoprim [From Bactrim] AdvReac Nausea/Vom/ Verified 05/28/22 11:11 Diarrhea Surgical History H/O colectomy History of colonoscopy History of rectal surgery Hx of foot surgery Ileostomy status Social History Smoking Status: Never smoker alcohol intake: never substance use type: does not use ROS <YAIR Villareal - Last Filed: 05/28/22 14:49> ROS ED ROS Narrative Constitutional: Negative for fever, chills, malaise. CVS: Negative for palpitations, chest pain. Respiratory: Negative for shortness of breath, cough. GI: Negative for abdominal pain, nausea, vomiting. Skin: Positive for erythema of left leg. Musc: Negative for joint pain or trauma. EXAM <YAIR Villareal - Last Filed: 05/28/22 14:49> Physical Exam Narrative Exam Narrative: CONST: Patient sitting in no acute distress. EYES: Normal inspection. NECK: Normal inspection. RESP: No respiratory distress, CTAB. CVS: Regular rate and rhythm, no murmur, no gallop. SKIN: Erythema and warmth of left leg from the mid senior down through the foot extending outside the marked lines. No wounds or breaks in the skin. No fluctuance or crepitus. EXTREMITIES: Bilateral lymphedema and venous stasis. NEURO: Oriented x4. PSYCH: Normal affect. Const Vital Signs: 05/28/22 11:12 05/28/22 14:09 Temperature 96.8 F L 98.3 F Temperature Source Temporal Oral Pulse Rate 101 H 93 Respiratory Rate 18 18 Blood Pressure 124/53 H 131/67 H Blood Pressure Mean 76 88 Pulse Ox 99 96 Oxygen Delivery Method Room Air Room Air <Dr. Livan Rebollar MD - Last Filed: 05/28/22 16:36> Physical Exam Const Vital Signs: 05/28/22 11:12 05/28/22 14:09 Temperature 96.8 F L 98.3 F Temperature Source Temporal Oral Pulse Rate 101 H 93 Respiratory Rate 18 18 Blood Pressure 124/53 H 131/67 H Blood Pressure Mean 76 88 Pulse Ox 99 96 Oxygen Delivery Method Room Air Room Air MDM <YAIR Villareal - Last Filed: 05/28/22 14:49> [facility] Narrative Medical decision making narrative: Patient has been on 4 days of oral doxycycline and metronidazole and is having worsening erythema of her left lower extremity. The erythema is extending out of the marked area down onto her foot. She has chronic lymphedema and venous stasis. Labs will be obtained while she gets a dose of IV vancomycin and morphine for pain control. WBC is 6.1, CRP 32.1, ESR 104. X-rays were obtained to rule out evidence of free gas/neck fac etc. and show no acute process. Although she does not have an elevated white count clinically her erythema is worsening outside of the marked areas and she has failed outpatient oral antibiotics. Case was discussed with the hospitalist who requested a CT of the extremity which is pending. Patient was admitted in stable condition. Lab Data Attestation: I reviewed the patient's lab results. Labs: Laboratory Results - last 24 hr 05/28/22 05/28/22 05/28/22 12:25 12:25 12:25 WBC 6.1 RBC 3.61 L Hgb 10.6 L Hct 37.3 MCV 103.3 H D MCH 29.4 MCHC 28.4 L D RDW Std Deviation 54.7 H RDW Coeff of Julissa 14.5 Plt Count 204 MPV 10.4 Immature Gran % (Auto) 0.300 Neut % (Auto) 69.4 Lymph % (Auto) 21.5 [place] % (Auto) 7.1 Eos % (Auto) 0.7 Baso % (Auto) 1.0 Absolute Neuts (auto) 4.2 Absolute Lymphs (auto) 1.30 Nucleated RBC % 0 ESR Cancelled PT Cancelled INR Cancelled Sodium 138 Potassium 4.2 Chloride 105 Carbon Dioxide 26.0 Anion Gap 7 BUN 22 H Creatinine 1.09 H Estim Creat Clear Calc 63.38 Est GFR (MDRD) Af Amer 70 Est GFR (MDRD) Non-Af 57 L BUN/Creatinine Ratio 20.2 H Glucose 105 Calcium 8.7 C-React Prot Ext Range 32.10 H 05/28/22 05/28/22 12:50 12:50 WBC RBC Hgb Hct MCV MCH MCHC RDW Std Deviation RDW Coeff of Julissa Plt Count MPV Immature Gran % (Auto) Neut % (Auto) Lymph % (Auto) [place] % (Auto) Eos % (Auto) Baso % (Auto) Absolute Neuts (auto) Absolute Lymphs (auto) Nucleated RBC % ESR 104 H PT 21.3 H INR 1.9 Sodium Potassium Chloride Carbon Dioxide Anion Gap BUN Creatinine Estim Creat Clear Calc Est GFR (MDRD) Af Amer Est GFR (MDRD) Non-Af BUN/Creatinine Ratio Glucose Calcium C-React Prot Ext Range Radiography Diagnostic Testing: Clinical Impression(s) from Imaging Studies Foot X-Ray 05/28/22 11:43 IMPRESSION: Soft tissue swelling of the left foot without acute osseous abnormality identified. 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 Electronically Signed: Cinthia Ro MD at 13:44 EST Reading Location ID and State: [facility] / [place] Tel , Service support , Tibia/Fibula X-Ray 05/28/22 11:43 IMPRESSION: Soft tissue swelling of the left leg without acute osseous abnormality identified. Old trauma and probable postoperative change of the ankle. Electronically Signed: Cinthia Ro MD at 13:46 EST , Lower Extremity CT 05/28/22 14:24 IMPRESSION: Soft tissue swelling of the left ankle and foot without abscess identified. Chronic posttraumatic or postsurgical deformity of the ankle and foot with degenerative changes. No definite acute osteomyelitis. Electronically Signed: Cinthia Ro MD at 15:48 EST , ED attending interpretation of the left tib-fib and foot shows no acute fracture or evidence of osteomyelitis. <Dr. Livan Rebollar MD - Last Filed: 05/28/22 16:36> MDM Lab Data Labs: Laboratory Results - last 24 hr 05/28/22 05/28/22 05/28/22 12:25 12:25 12:25 WBC 6.1 RBC 3.61 L Hgb 10.6 L Hct 37.3 MCV 103.3 H D MCH 29.4 MCHC 28.4 L D RDW Std Deviation 54.7 H RDW Coeff of Julissa 14.5 Plt Count 204 MPV 10.4 Immature Gran % (Auto) 0.300 Neut % (Auto) 69.4 Lymph % (Auto) 21.5 [place] % (Auto) 7.1 Eos % (Auto) 0.7 Baso % (Auto) 1.0 Absolute Neuts (auto) 4.2 Absolute Lymphs (auto) 1.30 Nucleated RBC % 0 ESR Cancelled PT Cancelled INR Cancelled Sodium 138 Potassium 4.2 Chloride 105 Carbon Dioxide 26.0 Anion Gap 7 BUN 22 H Creatinine 1.09 H Estim Creat Clear Calc 63.38 Est GFR (MDRD) Af Amer 70 Est GFR (MDRD) Non-Af 57 L BUN/Creatinine Ratio 20.2 H Glucose 105 Calcium 8.7 C-React Prot Ext Range 32.10 H 05/28/22 05/28/22 12:50 12:50 WBC RBC Hgb Hct MCV MCH MCHC RDW Std Deviation RDW Coeff of Julissa Plt Count MPV Immature Gran % (Auto) Neut % (Auto) Lymph % (Auto) [place] % (Auto) Eos % (Auto) Baso % (Auto) Absolute Neuts (auto) Absolute Lymphs (auto) Nucleated RBC % ESR 104 H PT 21.3 H INR 1.9 Sodium Potassium Chloride Carbon Dioxide Anion Gap BUN Creatinine Estim Creat Clear Calc Est GFR (MDRD) Af Amer Est GFR (MDRD) Non-Af BUN/Creatinine Ratio Glucose Calcium C-React Prot Ext Range Radiography Diagnostic Testing: Clinical Impression(s) from Imaging Studies Foot X-Ray 05/28/22 11:43 IMPRESSION: Soft tissue swelling of the left foot without acute osseous abnormality identified. 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 Electronically Signed: Cinthia Ro MD at 13:44 EST , Tibia/Fibula X-Ray 05/28/22 11:43 IMPRESSION: Soft tissue swelling of the left leg without acute osseous abnormality identified. Old trauma and probable postoperative change of the ankle. Electronically Signed: Cinthia Ro MD at 13:46 EST , Lower Extremity CT 05/28/22 14:24 IMPRESSION: Soft tissue swelling of the left ankle and foot without abscess identified. Chronic posttraumatic or postsurgical deformity of the ankle and foot with degenerative changes. No definite acute osteomyelitis. Electronically Signed: Cinthia Ro MD at 15:48 EST Reading Location ID and State: [facility] / [place] Tel , Service support , Treatment and Re-Evaluation Narrative: Seen and evaluated independently and in conjunction with physician operations administrative assistant. Agree with notes above unless documented otherwise. Patient with a history of cellulitis in her left leg, she states it started medial left foot where she had surgery for clubfoot remotely. It has been waxing and waning, she was admitted for this initially, discharge now on oral antibiotics for 4 days and it is spreading outside the lines that were drawn at the beginning of this course. She states the pain is increasing. No drainage. No fevers or chills. It is tender, there is erythema beyond the lines, and there is a central area that is suspicious for the possibility of abscess development, she did not want empiric needle aspiration. We started her on vancomycin and got labs, x-rays and my interpretation, 4 views of the tib-fib the left and 3 views of the left foot all show chronic bony abnormalities and no obvious signs of osteomyelitis or subcutaneous emphysema/necrotizing fasciitis which I think is not likely here. Discussed with Dr. Horn hospitalist; CT obtained and shows no definitive drainable collections. Discharge Plan Dx/Rx/DC Orders Clinical Impression: Cellulitis of left leg, Chronic acquired lymphedema, Failure of outpatient treatment Disposition Disposition: Acute Care Hospital [facility] Discharge Date/Time: 05/28/22 16:12
[2022-05-28] MEDS: 0.9% Normal Saline 1,000 ML 999 ML IV (12:24)
[2022-05-28] MEDS: Morphine 4 MG/ML Syringe IV ×2 (12:24→13:04)
[2022-05-28] MEDS: Ondansetron 4 MG/2 ML Vial IV ×2 (12:24→13:04)
[2022-05-28 12:31] LABS: Absolute Neutrophil Count 4.2 X10^3/uL (2.0-7.7); Basophil# 0.06 X10^3/uL; Eosinophil# 0.04 X10^3/uL; Eosinophils% 0.7 % (0-5); Hematocrit 37.3 % (37-47); Hemoglobin 10.6 g/dL (12.0-15.0); Lymphocyte % 21.5 % (19-41); Mean Corp Hgb Conc 28.4 g/dL (32-36); Mean Corpuscular Hgb 29.4 pg (27.0-32.0); Mean Corpuscular Volume 103.3 fL (81-99); Mean Platelet Vol. 10.4 fl (6.2-12.0); Monocyte# 0.43 X10^3/uL; Monocyte% 7.1 % (0-10); NRBC Flagged by Analyzer 0 % (0-5); Neutrophil % 69.4 % (47-70); Platelet Count 204 K/mm3 (150-450); RBC Distribution Width CV 14.5 % (11.6-14.6); RBC Distribution Width SD 54.7 fl (35.1-43.9); Red Blood Count 3.61 M/mm3 (4.2-5.4); White Blood Count 6.1 K/mm3 (4.4-11.0)
[2022-05-28 12:46] LABS: Anion Gap 7 (5-15); BUN 22 mg/dL (7-18); BUN/Creat Ratio 20.2 RATIO (10-20); Calcium,Total 8.7 mg/dL (8.5-10.1); Chloride 105 mmol/L (98-107); Creatinine, Serum 1.09 mg/dL (0.55-1.02); EST Glomerular Filtration Rate 57 mL/min (>60); Est Glom Filt Rate - Afr Amer 70 mL/min (>60); Estimated Creatinine Clearance 63.38 ml/min; Glucose 105 mg/dL (74-106); Potassium 4.2 mmol/L (3.5-5.1); Sodium Level 138 mmol/L (136-145)
[2022-05-28 13:00] LABS: Erythrocyte Sedimentation Rate 104 mm/hr (0-30)
[2022-05-28 13:06] LABS: International Normalized Ratio 1.9; Prothrombin Time (Protime)PT. 21.3 SECONDS (11.7-14.9)
[2022-05-28 14:09] VITALS: BP 131/67; PULSE 93; RESP 18; TEMP 36.8; O2SAT 96
--- NOTE | 2022-05-28 14:24 | CT_ITS ---
HISTORY: Left ankle and foot cellulitis, evaluate infection. TECHNIQUE: Helically acquired images were obtained of the left lower extremity from the knee to the foot after the intravenous administration of contrast. 2-D reformats were performed by the technologist. A radiation dose optimization technique was used for this scan. 685 images. COMPARISON: XR same day, CT 05/13/2022. FINDINGS: BONES: No acute fracture or cortical destruction identified. Chronic periosteal reaction of the distal tibia and fibula. Posttraumatic or postoperative deformity of the ankle. Chronic posterior cortical irregularity of the distal tibia with adjacent soft tissue thickening. JOINT SPACES: No dislocation or large joint effusion. Posttraumatic or postsurgical ankylosis and advanced degenerative changes of the ankle and foot. SOFT TISSUES: No subcutaneous emphysema or air in the deep fascial soft tissues. Venous varicosities and peripheral vascular disease noted. Scarring in the posterior knee. Muscular atrophy. Scattered soft tissue calcific lesions. Skin thickening and subcutaneous edema without peripheral enhancing fluid collection CT/Extremity Lower WITH Contrast IMPRESSION: Soft tissue swelling of the left ankle and foot without abscess identified. Chronic posttraumatic or postsurgical deformity of the ankle and foot with degenerative changes. No definite acute osteomyelitis. Electronically Signed: Cinthia Ro MD at 15:48 EST ,
--- NOTE | 2022-05-28 14:44 | NURSING ---
MED SURG JOPPERI CELLULITIS, FAILURE OUTPT TX
--- NOTE | 2022-05-28 14:45 | HP.PCM.HOS_ITS ---
[facility] - [facility] General Date of Service: 05/28/22 Chief Complaint: left leg erythema [facility] Narrative PUSHPA ORELLANA, is a 46 F who presents with left leg erythema. Patient was admitted from May 12 to with left leg cellulitis. She was discharged with levofloxacin and metronidazole. Patient completed that around the but that her leg started to get more red again. Start primary care doctor who umm a line around the erythema and start her on doxycycline and ditazole. Despite these antibiotics, her leg has continued to get more red, extending beyond the line of demarcation and becoming more painful. Patient has some subjective chills but denies any other complaints at this time. Patient did have x-rays of her foot and tib-fib that showed no evidence of any osteomyelitis. There are no draining wounds. 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 Depression Diverticulitis Easy bruising Excessive bleeding Gastric reflux History of blood transfusion History of Clostridium difficile infection History of DVT (deep vein thrombosis) History of edema History of GI bleed History of IBS Ileostomy in place Irritable bowel syndrome (IBS) Leg cramps Low iron Non-smoker Post-menopausal Pulmonary embolism Restless legs Shortness of breath on exertion Sleep apnea Walker as 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 Wears glasses Home Medications calcium carbonate 600 mg-vitamin D3 12.5 mcg (500 unit) capsule 1 tab PO BID SUPPLEMENT 12/13/17 [History Last Taken 05/11/22] ferrous sulfate 325 mg (65 mg iron) tablet 325 mg PO BID anemia 12/13/17 [History Last Taken 05/11/22] zinc sulfate 50 mg zinc (220 mg) capsule 220 mg PO QHS SUPPLEMENT 12/13/17 [History Last Taken 05/11/22] acetaminophen 500 mg tablet 1,000 mg PO Q6H PRN Pain 12/21/17 [History Last Taken 04/03/22 08:15] ascorbic acid (vitamin C) 1,000 mg tablet (Vitamin C) 3,000 mg PO BID SUPPLEMENT 12/21/17 [History Last Taken 05/11/22] ergocalciferol (vitamin D2) 1,250 mcg (50,000 unit) capsule (Vitamin D2) 50,000 unit PO MO supplement 12/21/17 [History Last Taken 05/08/22] magnesium oxide 400 mg PO BID SUPPLEMENT 12/21/17 [History Last Taken 05/11/22] aspirin 81 mg chewable tablet 2 tab PO DAILY HEART HEALTH 04/22/20 [History Last Taken 05/11/22] Bacillus coagulans 10 billion cell capsule,delayed release (Probiotic (B. coagulans)) 1 cell PO DAILY GUT HEALTH 07/08/21 [History Last Taken 05/11/22] duloxetine 60 mg capsule,delayed release sprinkle 60 mg PO QHS DEPRESSION 07/08/21 [History Last Taken 05/11/22] diphenoxylate-atropine 2.5 mg-0.025 mg tablet (Lomotil) 2 tab PO 4X/DAY IBS 07/27/21 [History Last Taken 05/11/22] diclofenac sodium 1 % topical gel 2 - 4 g topical UD PAIN 12/05/21 [History Last Taken 05/11/22] tramadol 50 mg tablet 50 - 100 mg PO Q6H PRN Pain 03/06/22 [History Last Taken 05/11/22] cholecalciferol (vitamin D3) 50 mcg (2,000 unit) tablet 6,000 unit PO BID SUPPLEMENT 05/12/22 [History Last Taken 05/11/22] melatonin 10 mg tablet 10 mg PO QHS 05/12/22 [History Last Taken 05/11/22] melatonin 5 mg tablet 5 mg PO QHS sleep 05/12/22 [History Last Taken 05/11/22] metoclopramide HCl 10 mg tablet 10 mg PO QHS 05/12/22 [History Last Taken 0 05/11/22] omeprazole 20 mg capsule,delayed release 40 mg PO 0500 ACID REFLUX 05/12/22 [History Last Taken 05/11/22 05:00] warfarin 2 mg tablet 5 mg PO QHS BLOOD THINNER 05/12/22 [History Last Taken ] metronidazole 500 mg tablet 500 mg PO TID #14 tabs 05/17/22 [Rx Last Taken Unknown] Allergy/AdvReac Type Severity Reaction Status Date / Time latex Allergy Rash Verified 05/28/22 11:11 amoxicillin AdvReac Nausea/Vom/ Verified 05/28/22 11:11 Diarrhea cephalexin AdvReac Nausea/Vom/ Verified 05/28/22 11:11 Diarrhea naproxen AdvReac Nausea/Vom/ Verified 05/28/22 11:11 Diarrhea sulfamethoxazole AdvReac Nausea/Vom/ Verified 05/28/22 11:11 [From Bactrim] Diarrhea trimethoprim [From Bactrim] AdvReac Nausea/Vom/ Verified 05/28/22 11:11 Diarrhea Surgical History H/O colectomy History of colonoscopy History of rectal surgery Hx of foot surgery Ileostomy status Social History Smoking Status: Never smoker alcohol intake: never substance use type: does not use ROS ROS Narrative Does have ileostomy on her right side with no new issues. Did have some bruising on the left side of her abdomen from Lovenox injection which she has since stopped. All review of systems were negative except as mentioned above in the history of present illness and the other review of systems. Vital Signs Vital Signs Vital Signs: 05/28/22 11:12 05/28/22 14:09 Temperature 36.0 C L 36.8 C Temperature Source Temporal Oral Pulse Rate 101 H 93 Respiratory Rate 18 18 Blood Pressure 124/53 H 131/67 H Blood Pressure Mean 76 88 Pulse Ox 99 96 Oxygen Delivery Method Room Air Room Air Weight Weight: 148.778 kg Body Mass Index (BMI) 51.3 Physical Exam Narrative - Physical Exam General: Alert, Oriented x3, Cooperative HEENT: Atraumatic, Normocephalic Oral: Moist Mucosa, No Gingival or Mucosal Lesions/ Ulcerations Neck: Supple, No JVD, Negative Carotid Bruits Lungs: Clear to auscultation, Normal air movement Cardiovascular: Regular rate, Normal S1, Normal S2, No murmurs Abdomen: Bowel Sounds Present, Soft, Non Tender, Non-Distended, No Hepato- splenomegaly Extremities: No clubbing, swelling bilateral lower extremities with lymphedematous changes. Does have erythema of the left leg that is warm to touch with some slight induration. No fluctuance was appreciated. The erythema extends below her knee and above her ankle. Skin: As above but also patient does have some sloughing of skin on her left foot. Musculoskeletal: No Tenderness to Palpation of Joints or Extremities Neurological: Neuro grossly intact Psych/Mental Status: Normal Affect, Appropriate Results Lab / Micro Data Attestation: I reviewed the patient's lab results. Result Diagrams: 05/28/22 12:25 05/28/22 12:25 Labs: Laboratory Results - last 24 hr 05/28/22 12:25: WBC 6.1, RBC 3.61 L, Hgb 10.6 L, Hct 37.3, MCV 103.3 H D, MCH 29.4, MCHC 28.4 L D, RDW Std Deviation 54.7 H, RDW Coeff of Julissa 14.5, Plt Count 204, MPV 10.4, Immature Gran % (Auto) 0.300, Neut % (Auto) 69.4, Lymph % (Auto) 21.5, [place] % (Auto) 7.1, Eos % (Auto) 0.7, Baso % (Auto) 1.0, Absolute Neuts (auto) 4.2, Absolute Lymphs (auto) 1.30, Nucleated RBC % 0, ESR Cancelled 05/28/22 12:25: Sodium 138, Potassium 4.2, Chloride 105, Carbon Dioxide 26.0, Anion Gap 7, BUN 22 H, Creatinine 1.09 H, Estim Creat Clear Calc 63.38, Est GFR (MDRD) Af Amer 70, Est GFR (MDRD) Non-Af 57 L, BUN/Creatinine Ratio 20.2 H, Glucose 105, Calcium 8.7, C-React Prot Ext Range 32.10 H 05/28/22 12:25: PT Cancelled, INR Cancelled 05/28/22 12:50: ESR 104 H 05/28/22 12:50: PT 21.3 H, INR 1.9 Radiology Impression Foot X-Ray 05/28/22 11:43 IMPRESSION: Soft tissue swelling of the left foot without acute osseous abnormality identified. 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 Electronically Signed: Cinthia Ro MD at 13:44 EST , Tibia/Fibula X-Ray 05/28/22 11:43 IMPRESSION: Soft tissue swelling of the left leg without acute osseous abnormality identified. Old trauma and probable postoperative change of the ankle. Electronically Signed: Cinthia Ro MD at 13:46 EST , Assessment & Plan Assessment/Plan (1) Cellulitis of left leg: PLAN: Recurrent. Patient has been discontinuing with left lower extremity cellulitis since the early part of April. received vancomycin in the emergency room. Will have her on vancomycin as well as meropenem given penicillin allergy. No open wounds to culture at this time. ER to order a CAT scan of her leg to evaluate for any abscesses or deeper infection. Clinically I do not feel that she has necrotizing fasciitis. Will need surgical consultation if patient does have an abscess. PLAN: Plan Chronic medical additions * VTE: Continue with warfarin. INR slightly subtherapeutic 1.9. Continue with warfarin at her current dose. * Morbid obesity with a BMI of 51.4: Complicates care and long-term recovery. * Status post ileostomy. Patient had a history of perforated diverticulitis and had her colon resected. Continue with local ostomy care. VTE prophylaxis: Not indicated as patient is already anticoagulated. Charges/Coding Visit Charges Inpatient E&M: 09887 Init Hosp L2
[2022-05-28 15:29] VITALS: BP 121/72; PULSE 98; RESP 18; TEMP 36.8; O2SAT 94
[2022-05-28 16:30] VITALS: BMI 51.3
[2022-05-28 16:32] VITALS: BP 143/55; PULSE 77; RESP 18; TEMP 36.9; O2SAT 98
--- NOTE | 2022-05-28 17:00 | PCM.RX.CS ---
Consult Pharmacy has been consulted to manage selected antiobiotic: Vancomycin Type of Consult: New start Suspected Infection: Skin/Soft tissue Labs: Sodium 138 mmol/L (136-145) 05/28/22 12:25 Potassium 4.2 mmol/L (3.5-5.1) 05/28/22 12:25 Chloride 105 mmol/L (98-107) 05/28/22 12:25 Carbon Dioxide 26.0 mmol/L (21.0-32.0) 05/28/22 12:25 Anion Gap 7 (5-15) 05/28/22 12:25 BUN 22 mg/dL (7-18) H 05/28/22 12:25 Creatinine 1.09 mg/dL (0.55-1.02) H 05/28/22 12:25 Est GFR (MDRD) Af Amer 70 mL/min (>60) 05/28/22 12:25 Est GFR (MDRD) Non-Af 57 mL/min (>60) L 05/28/22 12:25 BUN/Creatinine Ratio 20.2 RATIO (10-20) H 05/28/22 12:25 Glucose 105 mg/dL (74-106) 05/28/22 12:25 Goal Trough: 10-15 mcg/mL Pharmacy Plan for Drug Dosing: NEW START IV VANCOMYCIN Consulting Physician: Dr. Horn Indication: SSTI Goal Trough: 10-15 SrCr: 1.09 CrCl: 99 mL/min (using AdjBW) Comments: 2g IV x1 ordered and administered in ED 05/28/22 @1226 Vancomycin Dose: 1500mg IV Q12hr to start 05/29/22 @0000 Pending Level: 05/29/22 @2330, prior to 4th total dose of vancomycin per protocol Pharmacy Service will continue to monitor and adjust dosing as required.
[2022-05-28] MEDS: Acetaminophen 500 MG Tablet 1000 MG PO (17:44)
[2022-05-28] MEDS: Calcium Carb/Vitamin D 1 TABLET Tablet PO (17:44)
[2022-05-28] MEDS: Ferrous Sulfate 325 MG Tablet PO (17:44)
[2022-05-28 17:49] VITALS: BP 140/76; PULSE 89; RESP 20; TEMP 37.9; O2SAT 98
[2022-05-28] MEDS: oxyCODONE 5 MG Tablet PO (21:04)
[2022-05-28] MEDS: Magnesium Chloride 64 MG Delay Rel.Tablet 128 MG PO (21:08)
[2022-05-28] MEDS: MELATONIN 10 MG TABLET 5 MG PO (21:08)
[2022-05-28] MEDS: DULoxetine Hcl 60 MG Capsule PO (21:08)
[2022-05-28] MEDS: Metoclopramide 10 MG Tablet PO (21:13)
[2022-05-28 21:15] VITALS: BP 115/55; PULSE 109; RESP 18; TEMP 37.5; O2SAT 97
[2022-05-29] MEDS: oxyCODONE 5 MG Tablet PO ×3 (01:03→19:35)
[2022-05-29 02:20] VITALS: BP 132/67; PULSE 94; RESP 18; TEMP 37.1; O2SAT 98
[2022-05-29] MEDS: Pantoprazole Sodium 40 MG Tablet PO (05:34)
[2022-05-29 06:48] LABS: Absolute Lymphocyte Count 0.54 X10^3/uL (0.83-4.51); Absolute Neutrophil Count 4.3 X10^3/uL (2.0-7.7); Basophil# 0.02 X10^3/uL; Basophil% 0.4 % (0-1); Eosinophil# 0.09 X10^3/uL; Eosinophils% 1.7 % (0-5); Hematocrit 31.5 % (37-47); Hemoglobin 9.8 g/dL (12.0-15.0); Lymphocyte # 0.54 X10^3/ul (0.83-4.51); Lymphocyte % 10.2 % (19-41); Mean Corp Hgb Conc 31.1 g/dL (32-36); Mean Corpuscular Hgb 29.2 pg (27.0-32.0); Mean Corpuscular Volume 93.8 fL (81-99); Mean Platelet Vol. 10.4 fl (6.2-12.0); Monocyte# 0.32 X10^3/uL; NRBC Flagged by Analyzer 0 % (0-5); Neutrophil # 4.31 X10^3/uL (2.7-7.7); Neutrophil % 81.1 % (47-70); POSITIVE DIFFERENTIAL YES; Platelet Count 197 K/mm3 (150-450); RBC Distribution Width CV 14.5 % (11.6-14.6); RBC Distribution Width SD 49.1 fl (35.1-43.9); Red Blood Count 3.36 M/mm3 (4.2-5.4); White Blood Count 5.3 K/mm3 (4.4-11.0)
--- NOTE | 2022-05-29 07:01 | PN.HOSP_ITS ---
Subjective Subjective Ms. Carter is a 46-year-old white female who had a recent hospitalization here for left lower extremity cellulitis from 05/12/2072 through 05/17/2022 at which time she was discharged on Levaquin and metronidazole per infectious disease recommendations. She completed her antibiotics around 20 May however her leg started getting red again she is. She went to her primary care physician at that time who umm a line around the erythema and started on doxycycline and metronidazole. Unfortunately the leg continued to worsen to have increased erythema, edema, and pain. Patient presented to the emergency department secondary to this yesterday afternoon. She had some subjective chills but had no other complaints at that time. X-rays of her foot and tib-fib were unremarkable. CT of her left lower extremity showed soft tissue swelling of the left ankle and foot without abscess identification and chronic posttraumatic and postsurgical deformity of the ankle and foot with degenerative changes but no acute osteomyelitis. She was admitted to the medical floor and started on vancomycin and meropenem with a history of penicillin allergy. There is no concern of necrotizing fasciitis at the time of admission. Patient reports the erythema has worsened. Per discussion with the wound care nurse the patient has been noncompliant with her compression wrap at home and overall her leg is is not much changed from discharged after she reviewed the pictures from previous admission. Objective Data Objective Data Vital Signs: Vital Signs Temp Pulse Resp BP Pulse Ox O2 Del Method 98.8 F 94 18 132/67 H 98 Room Air 05/29/22 02:20 05/29/22 02:20 05/29/22 02:20 05/29/22 02:20 05/29/22 02:20 05/29/22 02:20 Oxygen Delivery Method Room Air Weight: 148.778 kg Body Mass Index (BMI) 51.3 Intake & Output: Intake and Output for Last 24 Hours 05/27/22 05/28/22 05/29/22 23:59 23:59 23:59 Intake Total 2340 / 3140 1450 / 1450 Output Total 75 / 75 Balance 2340 / 3065 1375 / 1375 Lab / Micro Data Result Diagrams: 05/29/22 06:16 05/29/22 06:16 Labs: Laboratory Results - last 24 hr 05/28/22 12:25: WBC 6.1, RBC 3.61 L, Hgb 10.6 L, Hct 37.3, MCV 103.3 H D, MCH 29.4, MCHC 28.4 L D, RDW Std Deviation 54.7 H, RDW Coeff of Julissa 14.5, Plt Count 204, MPV 10.4, Immature Gran % (Auto) 0.300, Neut % (Auto) 69.4, Lymph % (Auto) 21.5, [place] % (Auto) 7.1, Eos % (Auto) 0.7, Baso % (Auto) 1.0, Absolute Neuts (auto) 4.2, Absolute Lymphs (auto) 1.30, Nucleated RBC % 0, ESR Cancelled 05/28/22 12:25: Sodium 138, Potassium 4.2, Chloride 105, Carbon Dioxide 26.0, Anion Gap 7, BUN 22 H, Creatinine 1.09 H, Estim Creat Clear Calc 63.38, Est GFR (MDRD) Af Amer 70, Est GFR (MDRD) Non-Af 57 L, BUN/Creatinine Ratio 20.2 H, Glucose 105, Calcium 8.7, C-React Prot Ext Range 32.10 H 05/28/22 12:25: PT Cancelled, INR Cancelled 05/28/22 12:50: ESR 104 H 05/28/22 12:50: PT 21.3 H, INR 1.9 Radiography Diagnostic Testing: Radiology Impression Foot X-Ray 05/28/22 11:43 IMPRESSION: Soft tissue swelling of the left foot without acute osseous abnormality identified. 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 Electronically Signed: Cinthia Ro MD at 13:44 EST Reading Location ID and State: [facility] / [place] Tel , Service support , Tibia/Fibula X-Ray 05/28/22 11:43 IMPRESSION: Soft tissue swelling of the left leg without acute osseous abnormality identified. Old trauma and probable postoperative change of the ankle. Electronically Signed: Cinthia Ro MD at 13:46 EST , Lower Extremity CT 05/28/22 14:24 IMPRESSION: Soft tissue swelling of the left ankle and foot without abscess identified. Chronic posttraumatic or postsurgical deformity of the ankle and foot with degenerative changes. No definite acute osteomyelitis. Electronically Signed: Cinthia Ro MD at 15:48 EST Reading Location ID and State: [facility] / [place] Tel , Service support , Physical Exam Const no apparent distress and well nourished Constitutional Narrative: Morbidly obese, middle-aged, white female sleeping upon my arrival and somewhat groggy but awakens and follows commands. Able to converse with me but falls quickly back to sleep. HEENT head/scalp atraumatic and moist oral mucous membranes HEENT Narrative: Mallampati 3-4, no thrush Head and Scalp: normocephalic Resp normal respiratory effort, no retractions, no use of accessory muscles and clear to auscultation bilaterally Auscultation: Negative for crackles, rhonchi or wheezes Cardio regular rate, regular rhythm, S1 normal heart sound, S2 normal heart sound, no murmurs, no rub, no gallops and no clicks GI normal to inspection, nondistended, normoactive bowel sounds, soft to palpation and non-tender GI Narrative: Large protuberant abdomen Extremity Extremity Narrative: Left lower extremity with dressing in place, pictures reviewed and when compared to previous imaging at last admission there is not significant change Skin Skin Narrative: See above Neuro oriented x3, moves all extremities and no focal motor deficits Neuro Narrative: Sensory changes left lower extremity related to previous injury Speech: speech normal Assessment & Plan Assessment/Plan (1) Cellulitis of left leg: (2) Chronic acquired lymphedema: (3) Failure of outpatient treatment: PLAN: Plan Left lower extremity cellulitis -CT of the lower extremity was done on admission and showed no abscess -Wound cultures done on the 05 of May showed MRSA/group B strep/corynebacterium/and anaerobic cocci -Patient was on erythromycin prior to admission and took 2-1/2 days of this--> poor coverage for above bacteria -Hemoglobin A1c was 5.7 indicating the patient is insulin resistant but not diabetic -Continue meropenem and vancomycin -Patient has been noncompliant with her compression recommendations for her left lower extremity -Per discussion with wound care her leg does not look all that different from her last hospitalization. -Consult infectious disease Chronic anemia -Counts are overall stable -Continue home iron supplementation History of DVT/PE -Continue Coumadin 5 mg -INR is 2.1 -If remains therapeutic tomorrow we will discontinue prophylactic enoxaparin JOSEPH -Continue CPAP nocturnally GERD -Continue home PPI Morbid obesity -BMI 51.4 -Recommend weight loss -Complicates treatment, prognosis, outcomes DVT prophylaxis -Patient is fully anticoagulated with Coumadin -Start SQ Lovenox until INR is therapeutic at 2.0-3.0 x2 days CODE STATUS Full code Charges/Coding Visit Charges Inpatient E&M: 56720 Subs Hosp L2 Reason for Visit Reason for Visit: Diagnoses Cellulitis of left lower limb (05/28/22)
[2022-05-29 07:14] LABS: Anion Gap 6 (5-15); BUN 19 mg/dL (7-18); BUN/Creat Ratio 19.4 RATIO (10-20); Calcium,Total 8.2 mg/dL (8.5-10.1); Chloride 108 mmol/L (98-107); Creatinine, Serum 0.98 mg/dL (0.55-1.02); EST Glomerular Filtration Rate 65 mL/min (>60); Est Glom Filt Rate - Afr Amer 79 mL/min (>60); Glucose 107 mg/dL (74-106); Potassium 4.1 mmol/L (3.5-5.1); Sodium Level 140 mmol/L (136-145)
[2022-05-29 07:30] LABS: International Normalized Ratio 2.1
[2022-05-29 07:37] LABS: Differential Indicated SCAN CRITERIA MET
--- NOTE | 2022-05-29 07:55 | WOUNDNOTE ---
Was asked to see patient for cellulitis of the LLE. pt is known to this nurse from previous admissions. patient was admitted toward the end of April for cellulitis of the LLE. pt states the redness had improved, but then ended up getting worse after the antibiotics were completed. patient had been following with Dr Scott. the redness was marked with a skin pen and patient states was told to come to the ED if the redness extended past the skin markings. patient has some redness noted from the foot to just below the knee. there is some discoloration to the left mid senior. this was present on last admission as well. patient states more tenderness noted to the left lateral ankle. there is edema noted to the lateral and medial ankle. there are no open areas noted. patient had surgery on the LLE as a child and does wear a brace. there is some dryness noted to the foot. patient states she has not been able to get into the shower. asked patient if anyone has washed the leg and foot and patient states I can't reach it. washed leg and foot with soap and water. pat dry. padded the left ankle and wrapped with kerlix. applied HELEN wraps from the base of the toes to just below the knee. pt tolerated well. see skin photos. there is moderate edema and erythema noted, but no open wounds noted at this time. will continue to follow.
[2022-05-29 08:00] VITALS: BP 108/53; PULSE 101; RESP 18; TEMP 37.4; O2SAT 94
[2022-05-29] MEDS: Enoxaparin 40 MG/0.4 ML Syringe SC (08:03)
[2022-05-29] MEDS: Ferrous Sulfate 325 MG Tablet PO ×2 (08:04→18:11)
[2022-05-29] MEDS: Calcium Carb/Vitamin D 1 TABLET Tablet PO ×2 (08:04→18:11)
[2022-05-29] MEDS: Ergocalciferol 1.25 MG (50, 000 UNIT) Capsule PO (08:04)
[2022-05-29] MEDS: Aspirin 81 MG TAB.CHEW PO (08:04)
[2022-05-29] MEDS: Magnesium Chloride 64 MG Delay Rel.Tablet 128 MG PO ×2 (08:05→22:34)
--- NOTE | 2022-05-29 08:24 | WOUNDNOTE ---
skin photo: left lower leg
--- NOTE | 2022-05-29 08:25 | WOUNDNOTE ---
skin photo: left lower leg
--- NOTE | 2022-05-29 12:50 | CON.PCM.ID_ITS ---
Assessment & Plan Assessment/Plan (1) Cellulitis of left leg: PLAN: Recent wound cxs with PsA, MRSA, strep, corynebacter, and anaerobes. Back on vanc/reyes. No abscess/osteo seen on CT. Will consult podiatry for eval. Will follow, thank you (2) Chronic acquired lymphedema: HPI Consult Data Date of Consult: 05/29/22 HPI Narrative Reason for Consultation: cellulitis HPI Narrative: PUSHPA ORELLANA, is a 46 F who was admitted 05/13 to 05/17/22 for LLE cellulitis. Recent wound cx with PsA, MRSA, strep, corynebacter, and anaerobes. Given vanc/reyes, redness and wounds improved, discharged on 5 more days levaquin/flagyl. Redness continued to improve, was doing well at wound center on 05/19 but since then progressive redness, pain, not feeling well. Pain is 10/ 10, stabbing. No drainage. Admitted last afternoon, restarted on vanc/reeys, about the same today. Full ROS performed and neg except as noted above. [facility] Medical History Back pain CPAP (continuous positive airway pressure) dependence Current use of custodial anticoagulation Depression Diverticulitis Easy bruising Excessive bleeding Gastric reflux History of blood transfusion History of Clostridium difficile infection History of DVT (deep vein thrombosis) History of edema History of GI bleed History of IBS Ileostomy in place Irritable bowel syndrome (IBS) Leg cramps Low iron Non-smoker Post-menopausal Pulmonary embolism Restless legs Shortness of breath on exertion Sleep apnea Walker as 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 Wears glasses Home Medications calcium carbonate 600 mg-vitamin D3 12.5 mcg (500 unit) capsule 1 tab PO BID SUPPLEMENT 12/13/17 [History Last Taken 05/11/22] ferrous sulfate 325 mg (65 mg iron) tablet 325 mg PO BID anemia 12/13/17 [History Last Taken 05/11/22] zinc sulfate 50 mg zinc (220 mg) capsule 220 mg PO QHS SUPPLEMENT 12/13/17 [History Last Taken 05/11/22] acetaminophen 500 mg tablet 1,000 mg PO Q6H PRN Pain 12/21/17 [History Last Taken 04/03/22 08:15] ascorbic acid (vitamin C) 1,000 mg tablet (Vitamin C) 3,000 mg PO BID SUPPLEMENT 12/21/17 [History Last Taken 05/11/22] ergocalciferol (vitamin D2) 1,250 mcg (50,000 unit) capsule (Vitamin D2) 50,000 unit PO MO supplement 12/21/17 [History Last Taken 05/08/22] magnesium oxide 400 mg PO BID SUPPLEMENT 12/21/17 [History Last Taken 05/11/22] aspirin 81 mg chewable tablet 2 tab PO DAILY HEART HEALTH 04/22/20 [History Last Taken 05/11/22] Bacillus coagulans 10 billion cell capsule,delayed release (Probiotic (B. coagulans)) 1 cell PO DAILY GUT HEALTH 07/08/21 [History Last Taken 05/11/22] duloxetine 60 mg capsule,delayed release sprinkle 60 mg PO QHS DEPRESSION 07/08/21 [History Last Taken 05/11/22] diphenoxylate-atropine 2.5 mg-0.025 mg tablet (Lomotil) 2 tab PO 4X/DAY IBS 07/27/21 [History Last Taken 05/11/22] diclofenac sodium 1 % topical gel 2 - 4 g topical UD PAIN 12/05/21 [History Last Taken 05/11/22] tramadol 50 mg tablet 50 - 100 mg PO Q6H PRN Pain 03/06/22 [History Last Taken 05/11/22] cholecalciferol (vitamin D3) 50 mcg (2,000 unit) tablet 6,000 unit PO BID SUPPLEMENT 05/12/22 [History Last Taken 05/11/22] melatonin 10 mg tablet 10 mg PO QHS 05/12/22 [History Last Taken 05/11/22] melatonin 5 mg tablet 5 mg PO QHS sleep 05/12/22 [History Last Taken 05/11/22] metoclopramide HCl 10 mg tablet 10 mg PO QHS 05/12/22 [History Last Taken 05/11] omeprazole 20 mg capsule,delayed release 40 mg PO 0500 ACID REFLUX 05/12/22 [History Last Taken 05/11/22 05:00] warfarin 2 mg tablet 5 mg PO QHS BLOOD THINNER 05/12/22 [History Last Taken 05/11/22] metronidazole 500 mg tablet 500 mg PO TID #14 tabs 05/17/22 [Rx Last Taken Unknown] Allergy/AdvReac Type Severity Reaction Status Date / Time latex Allergy Rash Verified 05/28/22 11:11 amoxicillin AdvReac Nausea/Vom/ Verified 05/28/22 11:11 Diarrhea cephalexin AdvReac Nausea/Vom/ Verified 05/28/22 11:11 Diarrhea naproxen AdvReac Nausea/Vom/ Verified 05/28/22 11:11 Diarrhea sulfamethoxazole AdvReac Nausea/Vom/ Verified 05/28/22 11:11 [From Bactrim] Diarrhea trimethoprim [From Bactrim] AdvReac Nausea/Vom/ Verified 05/28/22 11:11 Diarrhea Surgical History H/O colectomy History of colonoscopy History of rectal surgery Hx of foot surgery Ileostomy status Social History Smoking Status: Never smoker alcohol intake: never substance use type: does not use Physical Exam Const alert, oriented x3 and no apparent distress General Appearance: cooperative HEENT normocephalic and head/scalp atraumatic Eyes PERRL and EOMs intact bilaterally Neck supple and No nodes Resp normal air movement and clear to auscultation bilaterally Cardio regular rate and regular rhythm GI soft to palpation, non-tender and non-distended Extremity General Extremity: edema Skin Skin Narrative: L lower leg with diffuse redness, warmth, swelling. Neuro CN's II-XII intact bilaterally Lab / Micro Data Attestation: I reviewed the patient's lab results. Result Diagrams: 05/29/22 06:16 05/29/22 06:16 Labs: Laboratory Results - last 24 hr 05/28/22 12:50: ESR 104 H 05/28/22 12:50: PT 21.3 H, INR 1.9 05/29/22 06:16: WBC 5.3, RBC 3.36 L, Hgb 9.8 L, Hct 31.5 L, MCV 93.8 D, MCH 29.2, MCHC 31.1 L D, RDW Std Deviation 49.1 H, RDW Coeff of Julissa 14.5, Plt Count 197, MPV 10.4, Immature Gran % (Auto) 0.600, Neut % (Auto) 81.1 H, Lymph % (Auto) 10.2 L, [place] % (Auto) 6.0, Eos % (Auto) 1.7, Baso % (Auto) 0.4, Absolute Neuts (auto) 4.3, Absolute Lymphs (auto) 0.54 L, Nucleated RBC % 0 05/29/22 06:16: Sodium 140, Potassium 4.1, Chloride 108 H, Carbon Dioxide 26.0, Anion Gap 6, BUN 19 H, Creatinine 0.98, Estim Creat Clear Calc 70.50, Est GFR (MDRD) Af Amer 79, Est GFR (MDRD) Non-Af 65, BUN/Creatinine Ratio 19.4, Glucose 107 H, Calcium 8.2 L 05/29/22 06:16: PT 23.0 H, INR 2.1 Radiology Impression Foot X-Ray 05/28/22 11:43 IMPRESSION: Soft tissue swelling of the left foot without acute osseous abnormality identified. 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 Electronically Signed: Cinthia Ro MD at 13:44 EST Reading Location ID and State: [address] [place] [address] Tel , Service support , Tibia/Fibula X-Ray 05/28/22 11:43 IMPRESSION: Soft tissue swelling of the left leg without acute osseous abnormality identified. Old trauma and probable postoperative change of the ankle. Electronically Signed: Cinthia Ro MD at 13:46 EST Reading Location ID and State: [facility] / [place] Tel , Service support , Lower Extremity CT 05/28/22 14:24 IMPRESSION: Soft tissue swelling of the left ankle and foot without abscess identified. Chronic posttraumatic or postsurgical deformity of the ankle and foot with degenerative changes. No definite acute osteomyelitis. Electronically Signed: Cinthai Ro MD at 15:48 EST Reading Location ID and State: [facility] / [place] Tel , Service support ,
--- NOTE | 2022-05-29 14:40 | CASEMGMT ---
FRANK AREVALO readmission note: Prior admission: Pt admitted 05/13/22 w/cellulitis of LLE for IV atb's. Pt discharged home with 5 days of Levaquin and Flagyl and Lovenox injections on 05/17 and pt to f/u w/her PCP and @ the . Current admission: Pt admitted 05/28/22 w/cellulitis of LLE. FRANK AREVALO to room to talk w/pt. Pt states she has been taking her medication as prescribed and went to f/u appts @ PCP and [facility]. She states her last appt @ [facility] was 05/19 and then discharged her. Pt then had increased redness and went to PCP, Pascale Chavez 05/25 who marked the redness to her LLE and started her on PO atb's Pt returned to the ED 05/28 when redness worsened per PCP instruction. Pt states she uses a walker @ baseline. Her mom assists her w/wrapping her LE w/Aashish wraps @ times. Discussed discharge planning. She states she has went to [facility] infusion center daily in the past for IV atb admin. She states, if IV atb are needed @ d/c, she would like to do either [facility] or [facility]fusion center again. She denies having other discharge planning needs at this time. Plan: ZEYNEP AREVALO to follow for possible IV atb @ discharge. Katie CRANE RN, CM
[2022-05-29 14:47] VITALS: BP 106/58; PULSE 92; RESP 18; TEMP 37.2; O2SAT 94
[2022-05-29] MEDS: Acetaminophen 500 MG Tablet 1000 MG PO (19:36)
--- NOTE | 2022-05-29 19:42 | PCM.CONS.GEN ---
Assessment & Plan Assessment/Plan (1) Cellulitis of left leg: (2) Chronic acquired lymphedema: (3) Venous insufficiency of both lower extremities: (4) Pain of left lower extremity: (5) Morbid obesity: PLAN: Plan Patient seen and evaluated Left lower extremity: Extremity demonstrates erythema extending from the dorsal foot encompassing the ankle and distal half of the lower extremity. There is hemosiderin deposition accompanying the erythema consistent with a venous stasis. Lower extremity also demonstrates lymphedema. No open wounds. No drainage noted. There is pain to palpation of the dorsal foot and lateral ankle overlying the regions of the cellulitis. Edema noted to the dorsal foot and lower extremity. Cellulitis has been outlined with skin marker. We will continue to observe. Patient demonstrates consistent noncompliance with compression stockings/lymphedema pumps. Patient cites pain that is too severe to wear. I discussed the need for continued compliance of compression stockings or forms of compression via Aashish wrap or Tubigrip. Patient states she has tried both and again to severe to wear. I again discussed that this is essential in controlling her lower extremity edema and prevention of recurrent cellulitis infections. I discussed elevating lower extremities at all times of rest. Patient is not diabetic however does demonstrate recent A1c of 5.7%. I discussed her insulin resistance and the likelihood of becoming diabetic with her continued trend of diet. Encourage lifestyle modification via diet and exercise as this will also decrease recurrence. I have reviewed her radiographs of the foot and ankle which demonstrate soft tissue swelling and arthritis of the midfoot and ankle. I have also reviewed CT images of the left lower extremity which demonstrates soft tissue swelling of the foot and lower extremity, no abscess or osteomyelitis. I have reviewed her labs/diagnostic data WBC currently 5.3, ESR 104, CRP 32. WBC is currently WNL. Previous wound culture demonstrates PsA, MRSA, corynebacterium, anaerobes. Currently no open wounds noted to the left lower extremity Patient has history of DVT on Coumadin 5 mg. INR currently 2.1 Infectious disease on board for antibiotic management. Currently on Vanco/meropenem. Recommend continued IV antibiotic management as patient has previously failed outpatient oral management. Hospitalist following for medical management. This is greatly appreciated Given that patient is currently stable and there is no gas in the soft tissue, no visible abscess formation on examination or CT and no evidence of osteomyelitis no surgical intervention planned at this current time. Podiatry will continue to follow every third day for continued monitoring of cellulitis of the left lower extremity. Please do not hesitate to call for any questions or concerns. Jr. Kaylie SwansonPDionisioM. [facility] [phone] Note: 2-Observe speech recognition office machine service supervisor software was used to create portions of this document. Sound-alike and misspelled words, as well as other office machine service supervisor errors may be contained in the documentation. HPI Consult Data Date of Consult: 05/29/22 HPI Narrative Reason for Consultation: Left lower extremity cellulitis HPI Narrative: PUSHPA ORELLANA, is a 46 F who presents to the [facility] with worsening left lower extremity redness and pain. Patient was previously admitted 05/13/2022 and discharged 05/17/2022 during which time she was treated for left lower extremity cellulitis and was on Vanco/meropenem with positive cultures of PsA, MRSA, corynebacterium, and anaerobes. She was improved and discharged home on Levaquin/Flagyl. She did follow-up in the wound care center on 05/19/2022 and was reported to be doing well. She then developed progressing redness, pain, and general feeling of not being well. She describes this pain as sharp and stabbing 10/10. She states she cannot wear compression stockings due to her leg size and pain when wearing them. She denies keeping foot elevated at home. She was consulted to podiatry for evaluation and monitoring of left lower extremity cellulitis. [facility] Medical History Back pain CPAP (continuous positive airway pressure) dependence Current use of oysterman anticoagulation Depression Diverticulitis Easy bruising Excessive bleeding Gastric reflux History of blood transfusion History of Clostridium difficile infection History of DVT (deep vein thrombosis) History of edema History of GI bleed History of IBS Ileostomy in place Irritable bowel syndrome (IBS) Leg cramps Low iron Non-smoker Post-menopausal Pulmonary embolism Restless legs Shortness of breath on exertion Sleep apnea Walker as 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 Wears glasses Home Medications calcium carbonate 600 mg-vitamin D3 12.5 mcg (500 unit) capsule 1 tab PO BID SUPPLEMENT 12/13/17 [History Last Taken 05/11/22] ferrous sulfate 325 mg (65 mg iron) tablet 325 mg PO BID anemia 12/13/17 [History Last Taken 05/11/22] zinc sulfate 50 mg zinc (220 mg) capsule 220 mg PO QHS SUPPLEMENT 12/13/17 [History Last Taken 05/11/22] acetaminophen 500 mg tablet 1,000 mg PO Q6H PRN Pain 12/21/17 [History Last Taken 04/03/22 08:15] ascorbic acid (vitamin C) 1,000 mg tablet (Vitamin C) 3,000 mg PO BID SUPPLEMENT 12/21/17 [History Last Taken 05/11/22] ergocalciferol (vitamin D2) 1,250 mcg (50,000 unit) capsule (Vitamin D2) 50,000 unit PO MO supplement 12/21/17 [History Last Taken 05/08/22] magnesium oxide 400 mg PO BID SUPPLEMENT 12/21/17 [History Last Taken 05/11/22] aspirin 81 mg chewable tablet 2 tab PO DAILY HEART HEALTH 04/22/20 [History Last Taken 05/11/22] Bacillus coagulans 10 billion cell capsule,delayed release (Probiotic (B. coagulans)) 1 cell PO DAILY GUT HEALTH 07/08/21 [History Last Taken 05/11/22] duloxetine 60 mg capsule,delayed release sprinkle 60 mg PO QHS DEPRESSION 07/08/21 [History Last Taken 05/11/22] diphenoxylate-atropine 2.5 mg-0.025 mg tablet (Lomotil) 2 tab PO 4X/DAY IBS 07/27/21 [History Last Taken 05/11/22] diclofenac sodium 1 % topical gel 2 - 4 g topical UD PAIN 12/05/21 [History Last Taken 05/11/22] tramadol 50 mg tablet 50 - 100 mg PO Q6H PRN Pain 03/06/22 [History Last Taken 05/11/22] cholecalciferol (vitamin D3) 50 mcg (2,000 unit) tablet 6,000 unit PO BID SUPPLEMENT 05/12/22 [History Last Taken 05/11/22] melatonin 10 mg tablet 10 mg PO QHS 05/12/22 [History Last Taken 05/11/22] melatonin 5 mg tablet 5 mg PO QHS sleep 05/12/22 [History Last Taken 05/11/22] metoclopramide HCl 10 mg tablet 10 mg PO QHS 05/12/22 [History Last Taken 05/11/22] omeprazole 20 mg capsule,delayed release 40 mg PO 0500 ACID REFLUX 05/12/22 [History Last Taken 05/11/22 05:00] warfarin 2 mg tablet 5 mg PO QHS BLOOD THINNER 05/12/22 [History Last Taken 05/11/22] metronidazole 500 mg tablet 500 mg PO TID #14 tabs 05/17/22 [Rx Last Taken Unknown] Allergy/AdvReac Type Severity Reaction Status Date / Time latex Allergy Rash Verified 05/28/22 11:11 amoxicillin AdvReac Nausea/Vom/ Verified 05/28/22 11:11 Diarrhea cephalexin AdvReac Nausea/Vom/ Verified 05/28/22 11:11 Diarrhea naproxen AdvReac Nausea/Vom/ Verified 05/28/22 11:11 Diarrhea sulfamethoxazole AdvReac Nausea/Vom/ Verified 05/28/22 11:11 [From Bactrim] Diarrhea trimethoprim [From Bactrim] AdvReac Nausea/Vom/ Verified 05/28/22 11:11 Diarrhea Surgical History H/O colectomy History of colonoscopy History of rectal surgery Hx of foot surgery Ileostomy status Social History Smoking Status: Never smoker alcohol intake: never substance use type: does not use ROS Constitutional Constitutional: Denies body ache(s), chills, fever(s) or headache(s) Eyes Eyes: Denies blurry vision, change in vision or double vision ENT HEENT: Denies dizziness, dysphagia, sinus pressure or sore throat Cardiovascular Cardiovascular: Denies chest pain, chest pain at rest or claudication Respiratory/Chest Respiratory/Chest: Denies chest congestion, cough or dyspnea Gastrointestinal Gastrointestinal: Denies abdominal pain, constipation, diarrhea or vomiting Genitourinary Genitourinary: Denies hematuria, urinary frequency, urinary hesitancy, urinary incontinence or urinary urgency Musculoskeletal Musculoskeletal: Denies joint pain, joint stiffness or joint swelling Integumentary Integumentary: Denies dry skin, jaundice, pruritus or rash Neurologic Neurologic: Denies confusion, dizziness or seizures Endocrine Endocrinology: Denies polydipsia, polyphagia or polyuria Hematologic/Lymphatic Hematologic/Lymphatic: Denies easy bleeding or easy bruising Physical Exam Const alert, oriented x3, no apparent distress and well nourished General Appearance: cooperative HEENT normocephalic Eyes General Eye: normal appearance of both eyes Neck General: normal visual inspection Lymph Lymphatic: no lymphadenopathy noted and no lymphedema noted Resp normal respiratory effort Cardio regular rate and regular rhythm Extremity normal capillary refill, no joint enlargement, no calf tenderness and no pedal edema Extremity Narrative: Left lower extremity demonstrates erythema extending from the dorsal foot encompassing the ankle and distal half of the lower extremity. There is hemosiderin deposition accompanying the erythema consistent with a venous stasis. Lower extremity also demonstrates lymphedema. No open wounds. No drainage noted. There is pain to palpation of the dorsal foot and lateral ankle overlying the regions of the cellulitis. Edema noted to the dorsal foot and lower extremity. Right lower extremity: Hemosiderin deposition about the lower extremity with lymphedema Musculoskeletal: Pain to palpation dorsal foot lateral ankle left lower extremity overlying regions of cellulitis. Muscle strength is 5 of 5 age-appropriate. Skin no rashes or lesions noted, no wounds, skin turgor normal and no jaundice General Skin Exam: erythema, venous stasis and dermatitis Neuro moves all extremities Lab / Micro Data Result Diagrams: 05/29/22 06:16 05/29/22 06:16 Labs: Laboratory Results - last 24 hr 05/29/22 06:16: WBC 5.3, RBC 3.36 L, Hgb 9.8 L, Hct 31.5 L, MCV 93.8 D, MCH 29.2, MCHC 31.1 L D, RDW Std Deviation 49.1 H, RDW Coeff of Julissa 14.5, Plt Count 197, MPV 10.4, Immature Gran % (Auto) 0.600, Neut % (Auto) 81.1 H, Lymph % (Auto) 10.2 L, Putnam % (Auto) 6.0, Eos % (Auto) 1.7, Baso % (Auto) 0.4, Absolute Neuts (auto) 4.3, Absolute Lymphs (auto) 0.54 L, Nucleated RBC % 0 05/29/22 06:16: Sodium 140, Potassium 4.1, Chloride 108 H, Carbon Dioxide 26.0, Anion Gap 6, BUN 19 H, Creatinine 0.98, Estim Creat Clear Calc 70.50, Est GFR (MDRD) Af Amer 79, Est GFR (MDRD) Non-Af 65, BUN/Creatinine Ratio 19.4, Glucose 107 H, Calcium 8.2 L 05/29/22 06:16: PT 23.0 H, INR 2.1
[2022-05-29] MEDS: DULoxetine Hcl 60 MG Capsule PO (22:33)
[2022-05-29] MEDS: MELATONIN 10 MG TABLET 5 MG PO (22:34)
[2022-05-29] MEDS: Metoclopramide 10 MG Tablet PO ×2 (22:35)
[2022-05-29 22:53] VITALS: BP 118/66; PULSE 91; RESP 16; TEMP 36.6; O2SAT 98
[2022-05-30] MEDS: oxyCODONE 5 MG Tablet PO ×4 (00:33→21:26)
--- NOTE | 2022-05-30 00:47 | PCM.RX.CS ---
Consult Pharmacy has been consulted to manage selected antiobiotic: Vancomycin Type of Consult: Follow-up Suspected Infection: Skin/Soft tissue Prior Doses of Antibiotics Received/Current Regimen: Medications Vancomycin HCl 1,500 mg/ (Sodium Chloride) 530 mls @ 250 mls/hr IV Q12H EDUARD Last Admin: 05/29/22 14:46 Dose: Infused Labs: Sodium 140 mmol/L (136-145) 05/29/22 06:16 Potassium 4.1 mmol/L (3.5-5.1) 05/29/22 06:16 Chloride 108 mmol/L (98-107) H 05/29/22 06:16 Carbon Dioxide 26.0 mmol/L (21.0-32.0) 05/29/22 06:16 Anion Gap 6 (5-15) 05/29/22 06:16 BUN 19 mg/dL (7-18) H 05/29/22 06:16 Creatinine 0.98 mg/dL (0.55-1.02) 05/29/22 06:16 Est GFR (MDRD) Af Amer 79 mL/min (>60) 05/29/22 06:16 Est GFR (MDRD) Non-Af 65 mL/min (>60) 05/29/22 06:16 BUN/Creatinine Ratio 19.4 RATIO (10-20) 05/29/22 06:16 Glucose 107 mg/dL (74-106) H 05/29/22 06:16 Vancomycin Trough 17.0 ug/mL (5.0-15.0) H 05/29/22 23:09 Weight used for dosin.8 kg Estimated Creatinine Clearance: 110 Goal Trough: 10-15 mcg/mL Pharmacy Plan for Drug Dosing: Vancomycin trough level of 17.0 was just above the target range of 10-15. With improving SCr, will continue dosing at 1500mg q12h and draw another trough in two days. Pharmacy Service will continue to monitor and adjust dosing as required. Follow-Up Labs: Trough Vancomycin Labs to be done on [date and time ordered]: 05/31/22 @8495
[2022-05-30] MEDS: Acetaminophen 500 MG Tablet 1000 MG PO ×2 (03:11→15:06)
[2022-05-30 03:26] VITALS: BP 124/69; PULSE 90; RESP 16; TEMP 36.6; O2SAT 98
[2022-05-30] MEDS: Pantoprazole Sodium 40 MG Tablet PO (05:29)
[2022-05-30 06:39] LABS: Prothrombin Time (Protime)PT. 22.8 SECONDS (11.7-14.9)
[2022-05-30 08:06] VITALS: BP 137/75; PULSE 89; RESP 18; TEMP 36.8; O2SAT 95
--- NOTE | 2022-05-30 08:12 | WOUNDNOTE ---
In to reassess the left lower leg. removed the HELEN wrap and dressing. there was no drainage noted. no open areas. the redness and edema greatly improved today. patient states there is still some tenderness noted to the left lateral ankle. patient states I think the swelling is down because I'm not eating a lot of salt. asked patient if she normally eats a lot of salt at home, and patient states yes. Educated patient on the importance of limiting her sodium intake not only for her overall health, but also to help decrease the edema. washed legs and feet with soap and water. pat dry. applied HELEN wraps to bilateral lower legs from the base of the toes to just below the knees. pt tolerated well. the left leg elevated up on pillows.
[2022-05-30] MEDS: Ferrous Sulfate 325 MG Tablet PO ×2 (08:41→16:32)
[2022-05-30] MEDS: Calcium Carb/Vitamin D 1 TABLET Tablet PO ×2 (08:41→16:32)
[2022-05-30] MEDS: Magnesium Chloride 64 MG Delay Rel.Tablet 128 MG PO ×2 (08:41→21:27)
[2022-05-30] MEDS: Aspirin 81 MG TAB.CHEW PO (08:41)
--- NOTE | 2022-05-30 10:33 | PCM.PN.ID ---
Physical Exam Narrative Feeling better, no fever, no n/v/d. Pain down to 6/10. Const alert and no apparent distress Resp normal air movement and clear to auscultation bilaterally Cardio regular rate and regular rhythm GI soft to palpation, non-tender and non-distended Extremity General Extremity: edema Skin Skin Narrative: LLE less red ID ID: Route of nutrition/ use of supplements: [] Nutritional Intake: [] IV Site: [] Moore Catheter: [] Assessment & Plan Assessment/Plan (1) Cellulitis of left leg: PLAN: 03/2022 and 04/2022 wound cxs with PsA, MRSA, strep, corynebacter, and anaerobes. Back on vanc/reyes. No abscess/osteo seen on CT. Seen by podiatry. Improved today. Plan at discharge will be one time infusion of Kimyrsa in order to avoid picc. Will follow, wrote rx, d/w primary team and caseworker protective services (2) Chronic acquired lymphedema:
--- NOTE | 2022-05-30 11:54 | CASEMGMT ---
Addendum entered by Guillermo Fuller 05/30/22 16:04: Pt made aware of below information. FRANK AREVALO will notify her once prior auth is obtained and of cost of medication, once it is determined. She denies having further concerns/questions at this time. Addendum entered by Guillermo Fuller 05/30/22 12:38: Call received from Amada @ [facility]. She states they are now able to get the IV oritavancin, but the earliest they would have it is Thurs. She asks for Rx to be faxed to them so they can work on getting prior-auth and check on financial benefits/coverage to determine what pt's [id number] cost would be. Dr Landeros notified of above. He states would be okay for pt to discharge tomorrow and then to receive the IV oritavancin Thurs, as he states it is okay to have a day b/w atb's. Call to Hayley @ [facility] and she was made aware of same. Script for IV oritavancin faxed to her at this time and she states will forward it to Chloe to have financial benefits ran. Original Note: FRANK AREVALO NOTE: Script for one-time dose IV oritavancin received from Dr Landeros. He states he anticipates pt will be ready for discharge home tomorrow and then can go to [facility] for the IV oritavancin. Call to Hayley @ [facility] infusion suite. She spoke w/pharmacy who states oritavancin is not on formulary @ [facility] and they are unable to get it. Dr Landeros made aware. Katie CRANE RN, CM
[2022-05-30 14:56] VITALS: BP 133/78; PULSE 95; RESP 18; TEMP 36.7; O2SAT 95
--- NOTE | 2022-05-30 17:15 | PCM.PN.HOSP ---
Reason for Visit Reason for Visit: Diagnoses Morbid (severe) obesity due to excess calories (05/28/22) Venous insufficiency (chronic) (peripheral) (05/28/22) Lymphedema, not elsewhere classified (05/28/22) Cellulitis of left lower limb (05/28/22) Pain in left leg (05/28/22) Other specified health status (05/28/22) Subjective Subjective Patient states the pain is better. Per discussion with wound nurse her leg is looking much better and the swelling is down to definitely. The patient does not watch her salt intake at home so we will have to put a salt restriction on her diet at discharge. Again I tried to reiterate the importance of her wearing her compression at home on that leg to help with the swelling and decrease her risk of recurrent infections. Objective Data Objective Data Vital Signs: Vital Signs Temp Pulse Resp BP Pulse Ox O2 Del Method 98.1 F 95 18 133/78 H 95 Room Air 05/30/22 14:56 05/30/22 14:56 05/30/22 14:56 05/30/22 14:56 05/30/22 14:56 05/30/22 14:56 Oxygen Delivery Method Room Air Weight: 148.778 kg Body Mass Index (BMI) 51.3 Intake & Output: Intake and Output for Last 24 Hours 05/28/22 05/29/22 05/30/22 23:59 23:59 23:59 Intake Total 2340 / 3140 2220 / 2220 1300 / 1300 Output Total 75 / 75 350 / 350 Balance 2340 / 3065 2145 / 2145 950 / 950 Lab / Micro Data Result Diagrams: 05/29/22 06:16 05/29/22 06:16 Labs: Laboratory Results - last 24 hr 05/29/22 23:09: Vancomycin Trough 17.0 H 05/30/22 05:27: PT 22.8 H, INR 2.0 Physical Exam Const no apparent distress and well nourished Constitutional Narrative: Morbidly obese, middle-aged, white female sitting up in bed eating breakfast and watching television, appears comfortable nontoxic HEENT head/scalp atraumatic and moist oral mucous membranes Head and Scalp: normocephalic Resp normal respiratory effort, no retractions, no use of accessory muscles and clear to auscultation bilaterally Auscultation: Negative for crackles, rhonchi or wheezes Cardio regular rate, regular rhythm, S1 normal heart sound, S2 normal heart sound, no murmurs, no rub, no gallops and no clicks GI normal to inspection, nondistended, normoactive bowel sounds, soft to palpation and non-tender GI Narrative: Large protuberant abdomen Extremity Extremity Narrative: Left lower extremity with dressing in place, chronic lower extremity edema, cap refill is 2+ Skin Skin Narrative: See above Neuro oriented x3, moves all extremities and no focal motor deficits Speech: speech normal Assessment & Plan Assessment/Plan (1) Cellulitis of left leg: (2) Chronic acquired lymphedema: (3) Failure of outpatient treatment: PLAN: Plan Left lower extremity cellulitis -CT of the lower extremity was done on admission and showed no abscess -Wound cultures done on the 05 of May showed MRSA/group B strep/corynebacterium/and anaerobic cocci -Patient was on erythromycin prior to admission and took 2-1/2 days of this--> poor coverage for above bacteria -Hemoglobin A1c was 5.7 indicating the patient is insulin resistant but not diabetic -Continue meropenem and vancomycin -Patient has been noncompliant with her compression recommendations for her left lower extremity -Wound care nurse states that her leg swelling is much better and that she is feeling better overall -Infectious diseases following and case discussed with him-IV antibiotics at discharge and case management is working on getting all of this arranged and approved for discharge probably tomorrow Chronic anemia -Counts are overall stable -Continue home iron supplementation History of DVT/PE -Increase Coumadin to 5.5 mg daily -INR is 2.0 -Continue prophylactic dose Lovenox JOSEPH -Continue CPAP nocturnally GERD -Continue home PPI Morbid obesity -BMI 51.4 -Recommend weight loss -Complicates treatment, prognosis, outcomes DVT prophylaxis -Patient is fully anticoagulated with Coumadin CODE STATUS Full code Charges/Coding Visit Charges Inpatient E&M: 06361 Subs Hosp L2
[2022-05-30 21:19] VITALS: BP 129/70; PULSE 85; RESP 18; TEMP 36.7; O2SAT 96
[2022-05-30] MEDS: DULoxetine Hcl 60 MG Capsule PO (21:27)
[2022-05-30] MEDS: MELATONIN 10 MG TABLET 5 MG PO (21:29)
[2022-05-30] MEDS: WARFARIN 5.5 MG PO (21:29)
[2022-05-31 00:52] VITALS: BP 150/72; PULSE 81; RESP 20; TEMP 36.5; O2SAT 96
[2022-05-31] MEDS: Acetaminophen 500 MG Tablet 1000 MG PO (01:03)
[2022-05-31] MEDS: oxyCODONE 5 MG Tablet PO ×3 (01:33→12:53)
[2022-05-31] MEDS: Pantoprazole Sodium 40 MG Tablet PO (05:58)
[2022-05-31 06:02] VITALS: BP 120/63; PULSE 78; RESP 18; TEMP 36.5; O2SAT 93
[2022-05-31 06:18] LABS: International Normalized Ratio 1.9; Prothrombin Time (Protime)PT. 21.3 SECONDS (11.7-14.9)
--- NOTE | 2022-05-31 08:10 | WOUNDNOTE ---
Pt wanting to shower this am. removed the HELEN wraps and dressings. no drainage noted. the redness and edema to the LLE is much improved. patient still c/o pain mostly near the left lateral ankle. educated patient again about the importance of wearing compression, elevating legs, and restricting salt intake once home. will reapply the HELEN wraps once patient is out of the shower. pt denies further needs at this time.
--- NOTE | 2022-05-31 08:27 | WOUNDNOTE ---
skin photo: left lower leg
--- NOTE | 2022-05-31 08:28 | WOUNDNOTE ---
skin photo: left lower leg
[2022-05-31] MEDS: Aspirin 81 MG TAB.CHEW PO (08:44)
[2022-05-31] MEDS: Calcium Carb/Vitamin D 1 TABLET Tablet PO (08:44)
[2022-05-31] MEDS: Ferrous Sulfate 325 MG Tablet PO (08:45)
[2022-05-31] MEDS: Magnesium Chloride 64 MG Delay Rel.Tablet 128 MG PO (10:09)
[2022-05-31 11:53] VITALS: BP 112/70; PULSE 92; RESP 16; TEMP 36.9; O2SAT 95
--- NOTE | 2022-05-31 12:58 | CASEMGMT ---
Addendum entered by Guillermo Fuller 05/31/22 17:11: Pt states she has an appt w/Dr Bose tomorrow @ 3:45 and concerned she may not be done @ [facility] in time to make it to the appt. Call placed to Ruth Ann @ [facility]. She states the oritavancin infuses over an hour, so pt will be able to make it to her appt. Pt made aware and voices appreciation. She denies having any further discharge planning needs or concerns. She is aware of importance of keeping legs elevated and wrapped w/Aashish wraps. She states she will continue to have her mom apply the wraps. Addendum entered by Guillermo Fuller 05/31/22 14:05: [facility]fusion [facility] prescription form for IV oritavancin faxed to [facility] suite at this time. Addendum entered by Guillermo Fuller 05/31/22 13:55: Dr Landeros notified that prior auth obtained for IV oritavancin. Also made aware prior auth needed for PO tedizolid and that [facility] pharmacy does not have it in stock--it will need ordered. Dr Landeros states will go back to original plan for pt to recieve IV oritavancin tomorrow. Dr Vance notified and states will discharge pt home today. Call placed to Leanne @ [facility] OP infusion center. She was made aware and states appt scheduled for pt tomorrow @ [facility] infusion center @ 1 PM. This was entered into discharge plan. Pt made aware of the above. Call to Jennifer in [facility] retail pharmacy and she was made aware PO tedizolid will be cancelled. Katie CRANE RN CM Addendum entered by Guillermo Fuller 05/31/22 13:49: Call received from Leanne @ [facility] infusion center. Prior auth received for IV oritavancin and she states anticipates pt's secondary insurance will cover for any remaining [id number] cost of medication. Call received from Divine @ [facility] retail pharmacy. She states the tedizolid that Dr Landeros prescribed requires a prior-auth and she also states they do not have it in stock and would have to order it. Message sent to Dr Landeros via backline to contact this RN CM for updates. Awaiting call back. Original Note: FRANK AREVALO NOTE: Call to FRANK Vallecillo, @ [facility] infusion suite to inquire if prior-auth has been obtained for IV oritavancin and if cost has been determined. Per Ruth Ann, they are still awaiting response/final determination. Dr Landeros here to see pt and was made aware. He states is going to cancel plan for OP IV oritavancin and will discharge pt home on PO atb. Call to Ruth Ann @ [facility] and she was made aware. Katie CRANE RN CM
--- NOTE | 2022-05-31 13:10 | WOUNDNOTE ---
Pt was able to take a shower. dressings had been removed prior to the shower. the redness appears to be pretty well resolved. edema still noted. washed legs and feet with soap and water. pat dry. reapplied the HELEN wraps. pt tolerated well.
--- NOTE | 2022-05-31 13:21 | PN.ID_ITS ---
Physical Exam Narrative C/o 10/30 pain, redness improved. No fever. Const alert and no apparent distress General Appearance: cooperative Resp normal air movement and clear to auscultation bilaterally Cardio regular rate and regular rhythm GI soft to palpation, non-tender and non-distended Skin Skin Narrative: LLE much less red ID ID: Route of nutrition/ use of supplements: [] Nutritional Intake: [] IV Site: [] Moore Catheter: [] Assessment & Plan Assessment/Plan (1) Cellulitis of left leg: PLAN: 03/2022 and 04/2022 wound cxs with PsA, MRSA, strep, corynebacter, and anaerobes. Back on vanc/reyes. No abscess/osteo seen on CT. Seen by podiatry. Much improved today. Plan at discharge will be 5 more days linezolid 600mg bid. Is on cymbalta; avoid tramadol while on linezolid. Ongoing fluid management and compression stockings will be the most important factors in preventing recurrence. Will follow, wrote rx, d/w behavioral health case manager (2) Chronic acquired lymphedema:
--- NOTE | 2022-05-31 14:59 | PCM.DC.SUM ---
Providers Date of Admission: 05/28/22 Date of Discharge: 05/31/22 Primary Care Physician: Dr. Karly Bose DO Consultations 05/28/22 16:36 Consult: Onc/Wound/health policy analyst Routine Comment: 05/29/22 07:12 Consult: Infectious Disease Routine Consulting Provider: Brenton Landeros Reason for Consult: LLE Cellulitis-recurrent EMERGENT Consult: No MD Notified: Yes Date Notified: 05/29/22 Time Notified: 08:23 Method of Notification: Answering Service 05/29/22 12:50 Consult: Podiatry Routine Consulting Provider: Jairo Smith Reason for Consult: recurrent LLE cellulitis, wound center pt EMERGENT Consult: No MD Notified: Yes Date Notified: 05/29/22 Time Notified: 13:54 Method of Notification: via circular gang saw operator Reason For Visit: CELLULITIS Diagnosis Discharge Diagnosis (1) Cellulitis of left leg: Status: Acute Code(s): L03.116 - Cellulitis of left lower limb (2) Chronic acquired lymphedema: Status: Chronic Code(s): I89.0 - Lymphedema, not elsewhere classified Medications at Discharge Home Medications calcium carbonate 600 mg-vitamin D3 12.5 mcg (500 unit) capsule 1 tab PO BID SUPPLEMENT 12/13/17 ferrous sulfate 325 mg (65 mg iron) tablet 325 mg PO BID anemia 12/13/17 zinc sulfate 50 mg zinc (220 mg) capsule 220 mg PO QHS SUPPLEMENT 12/13/17 acetaminophen 500 mg tablet 1,000 mg PO Q6H PRN Pain 12/21/17 ascorbic acid (vitamin C) 1,000 mg tablet (Vitamin C) 3,000 mg PO BID SUPPLEMENT 12/21/17 ergocalciferol (vitamin D2) 1,250 mcg (50,000 unit) capsule (Vitamin D2) 50,000 unit PO MO supplement 12/21/17 magnesium oxide 400 mg PO BID SUPPLEMENT 12/21/17 aspirin 81 mg chewable tablet 2 tab PO DAILY HEART HEALTH 04/22/20 Bacillus coagulans 10 billion cell capsule,delayed release (Probiotic (B. coagulans)) 1 cell PO DAILY GUT HEALTH 07/08/21 duloxetine 60 mg capsule,delayed release sprinkle 60 mg PO QHS DEPRESSION 07/08/21 diphenoxylate-atropine 2.5 mg-0.025 mg tablet (Lomotil) 2 tab PO 4X/DAY IBS 04/06/22 diclofenac sodium 1 % topical gel 2 - 4 g topical UD PAIN 12/05/21 tramadol 50 mg tablet 50 - 100 mg PO Q6H PRN Pain 03/06/22 cholecalciferol (vitamin D3) 50 mcg (2,000 unit) tablet 6,000 unit PO BID SUPPLEMENT 05/12/22 melatonin 10 mg tablet 10 mg PO QHS 05/12/22 melatonin 5 mg tablet 5 mg PO QHS sleep 05/12/22 metoclopramide HCl 10 mg tablet 10 mg PO QHS 05/12/22 omeprazole 20 mg capsule,delayed release 40 mg PO 0500 ACID REFLUX 05/12/22 warfarin 2 mg tablet 5 mg PO QHS BLOOD THINNER 05/12/22 tedizolid 200 mg tablet 200 mg PO DAILY 6 days #6 tabs 05/31/22 Hospital Course Procedures - (CT lower extremity left/left foot x-ray/left distal lower extremity x-ray) Summary of Care Provided Minutes Spent on Discharge: 38 Hospital Course: Ms. Carter is a 46-year-old white female who presented to the emergency department on 05/28/2022 complaining of worsening left lower extremity swelling and erythema. She had a recent hospitalization here for left lower extremity cellulitis from 05/12/2022 through 05/17/2022 at which time she was discharged on Levaquin and metronidazole per infectious disease recommendations. Patient reported she completed antibiotics around May 20 however the leg started getting red and swollen again. She went to her primary care physician at that time who umm the erythema and started her on doxycycline and metronidazole. Unfortunately, her leg continued to worsen having increased erythema and edema. The patient had subjective chills but no fevers. X-rays of the foot and tib-fib were performed and unremarkable. CT of the left lower extremity showed soft tissue swelling of the left ankle and foot without abscess identification and chronic posttraumatic and surgical changes. She admitted to the medical floor and started on vancomycin and meropenem. Infectious disease, wound care, and podiatry evaluated the patient. Podiatry had no additional discharge recommendations and she did not require any ongoing care by podiatry. She was maintained on vancomycin and meropenem throughout her hospital course and her leg markedly improved. We did discover the patient had been noncompliant with her compression devices at home and this was recommended. She also was not watching her salt intake. She reported that she was not aware that she should watch this as it would cause increased swelling. She did report that her primary told her uric acid level was elevated however there is significant doubt that she has gout as her leg pain seems to be her distal complete leg rather than joint specific. Infectious disease recommended tedizolid and prior Auth was obtained prior to discharge. She was maintained on her Coumadin throughout her hospital course and her INR fluctuated between 1.9 and 2.2. I have recommended she obtain an INR by her primary care physician within the next 2 to 3 days. She did indicate she has a primary care visit tomorrow and I encouraged ongoing follow-up. She also was encouraged to call the wound center to have continued follow-up as an outpatient. We did encourage her increased compliant with compression devices that she has at home given the fact that I suspect the chronic edema she has from her previous injury is part of the issue related to her recurrent infections and she was recommended to restrict her sodium intake to 4 g daily. She was discharged home with antibiotics in stable condition on 05/31/2022. Discharge diagnoses: Left lower extremity cellulitis Chronic anemia History of DVT/PE JOSEHP GERD Morbid obesity Chronic left lower extremity lymphedema status post trauma Physical Exam Const alert, oriented x3 and no apparent distress Constitutional Narrative: Morbidly obese white [id number], sitting up in bed, eating breakfast, appears comfortable nontoxic, nursing students at bedside General Appearance: cooperative, comfortable, well kempt and well developed Orientation / Consciousness: awake, oriented to person, oriented to place and oriented to time Exam Limitations: no limitations Nutritional Appearance: morbidly obese HEENT normocephalic, head/scalp atraumatic, hearing grossly normal bilaterally and moist oral mucous membranes HEENT Narrative: Dentition is good, Mallampati is 3-4, no thrush Eyes PERRL, EOMs intact bilaterally and conjunctivae normal Eyes Narrative: No scleral icterus Neck no lymphadenopathy, supple and no JVD Neck Narrative: Trachea midline, no thyroid enlargement, neck is short and thick Resp normal respiratory effort, no retractions, no use of accessory muscles and clear to auscultation bilaterally Auscultation: Negative for crackles, rhonchi or wheezes Cardio regular rate, regular rhythm, S1 normal heart sound, S2 normal heart sound, no murmurs, no rub, no gallops and no clicks GI normal to inspection, nondistended, normoactive bowel sounds, soft to palpation and non-tender GI Narrative: Protuberant abdomen Extremity Extremity Narrative: Chronic left lower extremity edema that is improved, no cyanosis or clubbing Skin No no rashes or lesions noted, no wounds, skin turgor normal and no jaundice Skin Narrative: Left lower extremity erythema dramatically improved and retracted from outlining on admission, area of central redness is improved, decreased tenderness, edema has improved Neuro oriented x3, CN's II-XII intact bilaterally, moves all extremities and no focal motor deficits Neuro Narrative: Decreased sensation left lower extremity related to previous injury Sensorium / Orientation: awake, alert, oriented to person, oriented to place and oriented to time Speech: speech normal Psych affect normal Psych Narrative: Pleasant, appropriately interactive Weight / BMI Weight Weight: 148.778 kg Body Mass Index (BMI) 51.3 ABG / Lab / Microbiology Data Result Diagrams: 05/29/22 06:16 05/29/22 06:16 Laboratory: Laboratory Results - last 24 hr 05/31/22 05:20: PT 21.3 H, INR 1.9 D/C Instructions Discharge Diet: Low fat / Low cholesterol and 4000 mg Sodium Diet Discharge Activity: Return to Normal Activity Meaningful Use Info Meaningful Use Diagnoses (Choose all that apply): None applicable Discharge Plan Admission Admit Date/Time: 05/28/22 14:38 Primary Reason for Your Visit: Left lower extremity cellulitis Attending Provider: Lalitha Vance Primary Care Provider: Karly Bose Consulting Providers: Cody Horn ; Brenotn Landeros ; Jairo Smith Instructions Additional Instructions / Restrictions: 1. Please follow-up his wound care as seen previously--> call tomorrow for follow-up appointment Discharge Orders/Prescriptions Prescriptions: New tedizolid 200 mg tablet 200 mg PO DAILY 6 Days Qty: 6 0RF Continued diphenoxylate-atropine [Lomotil] 2.5-0.025 mg tablet 2 tab PO 4X/DAY zinc sulfate 220 MG capsule 220 mg PO QHS calcium carbonate-vitamin D3 1 EACH capsule 1 tab PO BID ferrous sulfate 325 MG tablet 325 mg PO BID ergocalciferol (vitamin D2) [Vitamin D2] 50,000 UNIT capsule 50,000 unit PO MO ascorbic acid (vitamin C) [Vitamin C] 1,000 MG tablet 3,000 mg PO BID magnesium oxide 400 MG tablet 400 mg PO BID acetaminophen 500 MG tablet 1,000 mg PO Q6H PRN (Reason: Pain) aspirin 81 MG tablet,chewable 2 tab PO DAILY Probiotic (B. coagulans) 10 billion cell Capsule,Delayed Release(Dr/Ec) 1 cell PO DAILY duloxetine 60 mg Capsule, Delayed Rel Sprinkle 60 mg PO QHS diclofenac sodium 1 % Gel 2 - 4 g TOPICAL UD tramadol 50 mg Tablet 50 - 100 mg PO Q6H PRN (Reason: Pain) warfarin 2 mg tablet 5 mg PO QHS omeprazole 20 mg capsule,delayed release(DR/EC) 40 mg PO 0500 metoclopramide HCl 10 mg tablet 10 mg PO QHS melatonin 5 mg Tablet 5 mg PO QHS cholecalciferol (vitamin D3) 50 mcg (2,000 unit) Tablet 6,000 unit PO BID melatonin 10 mg Tablet 10 mg PO QHS Discontinued metronidazole 500 mg tablet 500 mg PO TID Qty: 14 0RF Referrals / Follow Up: Karly Bose DO [Primary Care Provider] - See Referral Note (As scheduled) Disposition Disposition (needs filled in before D/C Order can be placed): Home, Self Care Charges/Coding Visit Charges Inpatient E&M: 75679 Disch Hosp >30min
[2022-05-31 15:47] VITALS: BP 122/55; PULSE 91; RESP 18; TEMP 36.7; O2SAT 99
== END 2022-05-31 17:15 | disposition home or self-care (01) | DRG 603 ==
LOC: ED 14:17 → MS3 15:14
PROVIDERS: Physician Assistant; Emergency Provider Emergency Medicine; PCP Family Medicine; Visit Provider Internal Medicine
DX: L03.116 Cellulitis of left lower limb (principal); Z68.43 Body mass index [BMI] 50.0-59.9, adult; E66.01 Morbid (severe) obesity due to excess calories; Z93.2 Ileostomy status; I89.0 Lymphedema, not elsewhere classified; I87.2 Venous insufficiency (chronic) (peripheral); G47.33 Obstructive sleep apnea (adult) (pediatric); K21.9 Gastro-esophageal reflux disease without esophagitis; M19.072 Primary osteoarthritis, left ankle and foot; Z79.82 Long term (current) use of aspirin; Z79.01 Long term (current) use of anticoagulants; Z79.891 Long term (current) use of opiate analgesic; Z86.718 Personal history of other venous thrombosis and embolism; Z86.711 Personal history of pulmonary embolism; Z51.81 Encounter for therapeutic drug level monitoring
CPT/HCPCS: 36415; 73590; 73630; 73701; 80048; 80053; 80202; 84550; 85025; 85610; 85652; 86140; 97802; 99284; J2185; J7030; J7040; A4216; J2405

== ENCOUNTER → 2022-06-01 | Outpatient (CLI) | payer MEDICARE, MEDICAID, SELFPAY ==
[2022-06-01 13:27] VITALS: BP 128/70; PULSE 94; RESP 16; TEMP 35.8; O2SAT 96
[2022-06-01] MEDS: 0.9% NaCl Peripheral Flush Adult/Peds IV (13:30)
[2022-06-01] MEDS: 0.9% NaCl IVPB Med Flush (250 mL) 25 ML IV (13:43)
[2022-06-01 15:35] VITALS: BP 122/64; PULSE 72
== END | disposition home or self-care (01) ==
LOC: MEDOUTP 12:54
PROVIDERS: PCP Family Medicine; Referring Provider Internal Medicine Infectious Disease; Visit Provider Internal Medicine Infectious Disease
DX: L03.116 Cellulitis of left lower limb (principal)
CPT/HCPCS: 96365; J7050; A4216; J2406

== ENCOUNTER 2022-06-09 11:24 | Outpatient (RCR) | payer MEDICARE, MEDICAID, SELFPAY ==
[2022-05-24 00:19] VITALS: BP 130/68; PULSE 98; RESP 16; TEMP 36; BMI 112.3
[2022-06-09 11:40] VITALS: BP 159/79; PULSE 92; RESP 18; TEMP 35.9; BMI 112.3
--- NOTE | 2022-06-09 15:19 | PCM.WC.PN ---
History of Present Illness Date of Service: 06/09/22 Chief Complaint: ulcer of left heel History of Wound: This is a 46-year-old morbidly obese female who presents today for treatment of a nonhealing ulcer of her left heel which was noticed this week by podiatry. She does not know how long it has been present. Since treatment at podiatry she has had mild greenish drainage from ulcer. 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 She also fell and injured her right senior on her walker on Sunday. She has been dressing the wound with hydrogel and adaptic. She has not been able to change dressings regularly. She is on chronic anticoagulation with warfarin and is obese. She has no odor, erythema. Subjective Subjective Melanie's left heel is healed. She has had improvement in her edema of her left leg and the erythema has also improved. She was treated with colchicine for possible gout which did not improve her pain in her left ankle but she was prescribed prednisone to treat for pseudogout as the colchicine failed. She is feeling better overall except for pain in her left ankle. Objective Data Objective Data Vital Signs: Vital Signs Temp Pulse Resp BP 96.7 F L 92 18 159/79 H 06/09/22 11:40 06/09/22 11:40 06/09/22 11:40 06/09/22 11:40 Weight: 335 kg Body Mass Index (BMI) 112.3 Physical Exam Const alert, oriented x3 and no apparent distress Nutritional Appearance: morbidly obese HEENT normocephalic and head/scalp atraumatic Resp normal respiratory effort Effort and Inspection: able to speak in complete sentences Cardio regular rate and regular rhythm Extremity General Extremity: edema bilateral lower extremity Details: moderate Skin General Skin Exam: erythema Wounds: wounds noted Wound Narrative: as in clinical panel Neuro oriented x3 and moves all extremities Debridement Note Debridement Note Wound debrided: left heel Laterality: Left No debridement was completed: No debridement was completed today (ulcer is healed) Post-Debridement Measurements and Additional Note: Post-Debridement Measurements/Treatment CIARRA - Nurse 1 - General Ulcer Assessment Start: 06/09/22 11:39 Freq: Status: Active Protocol: [email or web address].PATTI Activity Type Activity Date Activity User E-sign Co-sign Detail Recorded Client Recorded Date Recorded By Document 06/09/22 11:40 ML [id number] 06/09/22 11:42 ML 06/09/22 11:40 WC - Today's Visit Information Type of service Follow-up Visit (Physician/STREET DEPARTMENT DISPATCHER ) Arrival Mode Walker Transfer Assistance None Patient Identification Verified (Name & Yes ) Patient Requires Transmission-Based No Precautions Safety Precautions NA Height and Weight Body Mass Index (BMI) 112.3 BMI Classification Obese Vital Signs Temperature (97.8 F-99.1 F) 96.7 F L Temperature Source Temporal Pulse Rate (60-100) 92 Respiratory Rate (12-18) 18 Respiratory rate source Observation Blood Pressure (90/60-120/80) 159/79 H Blood Pressure Mean (mm Hg) 105 Source Monitor Position Sitting Blood Pressure Location Left Arm History Since Last Visit- (Skip if this is Patient's initial visit) Have you changed medications since your No last visit? Any new allergies or adverse reactions No Had a fall/change in ADL's that may No increase risk of falls Signs or symptoms of abuse and/or No neglect since last visit Have you been in the hospital since your No last visit? Has dressing in place as prescribed Yes Has compression in place as prescribed Yes Has offloadiing in place as prescribed N/A Experienced any changes in pain level or No management Left Footwear Regular Shoe Right Footwear Regular Shoe Pain Scale: 0-10 Numeric Is Patient Pain Free? Yes WC - Nurse 1 - General Ulcer Measurement Start: 06/09/22 11:39 Freq: Status: Active Protocol: Activity Type Activity Date Activity User E-sign Co-sign Detail Recorded Client Recorded Date Recorded By Document 06/09/22 11:40 ML [id number] 06/09/22 11:42 ML 06/09/22 11:40 Wound Center Nurse 1 19. left posterior ankle -Current Size (cm) - Length 0.1 -Current Size (cm) - Width 0.1 -Current Size (cm) - Depth 0.1 -Total Square Cm 0.01 -Exudate Amt None Present -Granulation Amt None Present (0 %) -Texture (Meg-wound Skin Appearance) Assessed -Moisture (Meg-wound Skin Appearance) Dry/Scaly -Color (Meg-wound Skin Appearance) Assessed -Temperature (Meg-wound Skin No Abnormality Appearance) (Pt Warm) -Tenderness on Palpation (Meg-wound No Skin Appearance) -Ulcer Cleansing Rinsed/ Irrigated with Saline -Foul Odor after Cleansing No Left Calf (cm) 43 Left Ankle (cm) 28.5 WC - Nurse 2 - General Ulcer CM Notes Start: 06/09/22 11:39 Freq: Status: Active Protocol: Activity Type Activity Date Activity User E-sign Co-sign Detail Recorded Client Recorded Date Recorded By Document 06/09/22 12:44 MW [id number] 06/09/22 12:46 MW 06/09/22 12:44 Wound Center Nurse 2 19. left posterior ankle -Time 12:45 -Correct Patient Yes -Correct Side, Site, Position Yes -Correct Procedure Yes -Procedure Performed No -Post Debridement (cm) - Length 0 -Post Debridement (cm) - Width 0 -Total Square (Post) (cm) 0 -Wound/Ulcer Outcome Healed- Epithelialized Pain Scale: 0-10 Numeric Is Patient Pain Free? Yes WC - Nurse 3 - General Ulcer D/C NN Start: 06/09/22 11:39 Freq: Status: Active Protocol: Activity Type Activity Date Activity User E-sign Co-sign Detail Recorded Client Recorded Date Recorded By Document 06/09/22 13:01 MW [id number] 06/09/22 13:02 MW 06/09/22 13:01 Wound Care Center Nurse 3 Left -Lotion applied to leg before No compression wrap -Compression Wrap Aashish Wrap Pain Scale: 0-10 Numeric Is Patient Pain Free? Yes Teaching: Wound Center Discharge Instructions -Person Taught Patient -Teaching Method Demonstration -Response to teaching Verbalize understanding WC - Visit Discharge Discharge Condition Stable Ambulatory Status Ambulatory, Walker Transportation Private Auto Accompanied by self Medication Reconcilliation completed & No provided to patient/care provider Clinical Summary of Care Provided Yes Assessment/Plan Assessment/Plan (1) Liver disease: CODE(S): K76.9 - Liver disease, unspecified (2) Esophageal varices: CODE(S): I85.00 - Esophageal varices without bleeding (3) Venous insufficiency of both lower extremities: CODE(S): I87.2 - Venous insufficiency (chronic) (peripheral) (4) History of pulmonary embolism: CODE(S): Z86.711 - Personal history of pulmonary embolism (5) Morbid obesity: CODE(S): E66.01 - Morbid (severe) obesity due to excess calories (6) Status post club foot correction at : CODE(S): Z98.890 - Other specified postprocedural states; Z87.76 - Personal history of (corrected) congenital malformations of integument, limbs and musculoskeletal system (7) 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 No debridement necessary. Cellulitis is improving. She will use AASHISH bandages for compression. She has had labs approx. 2 months ago to evaluate her nutrition and for diabetes which nutrition is adequate and A1C was less than 6.0%. We discussed offloading of the site which she has been doing and we also encouraged increased protein intake, weight loss to manage edema. She was advised to call if there are any increased odor, pain, drainage or erythema. She will follow up as needed for wound care.
== END 2022-06-20 23:59 | disposition home or self-care (01) ==
LOC: WC 11:24
PROVIDERS: PCP Family Medicine; Referring Provider Family Medicine; Visit Provider Family Medicine
DX: Z09 Encounter for follow-up examination after completed treatment for conditions other than malignant neoplasm (principal); I83.12 Varicose veins of left lower extremity with inflammation; I87.2 Venous insufficiency (chronic) (peripheral); M25.572 Pain in left ankle and joints of left foot; I89.0 Lymphedema, not elsewhere classified; R60.0 Localized edema; E66.01 Morbid (severe) obesity due to excess calories; Z68.45 Body mass index [BMI] 70 or greater, adult; G47.33 Obstructive sleep apnea (adult) (pediatric); Z93.2 Ileostomy status; Z79.01 Long term (current) use of anticoagulants; Z79.82 Long term (current) use of aspirin; Z79.899 Other long term (current) drug therapy; Z98.890 Other specified postprocedural states
CPT/HCPCS: 99213; G0463

== ENCOUNTER → 2023-01-10 | Outpatient (CLI) | payer MEDICARE, MEDICAID, SELFPAY ==
--- NOTE | 2023-01-10 13:30 | MRI_ITS ---
STUDY: MRI LUMBAR SPINE WITHOUT CONTRAST REASON FOR EXAM: Female, 47 years old. painintense back and hip pain for 5yrs., states has had physical therapy TECHNIQUE: Standardized fat and water weighted pulse sequences were obtained in the sagittal and axial planes. COMPARISON: Lumbar spine x-rays December 20, 2022 FINDINGS: T12-L1: Normal endplates. Normal disc height, normal hydration and morphology. Normal bilateral facet joints. Normal central canal and bilateral lateral recesses. Normal bilateral intervertebral neural foramina. Normal lumbar lordosis. There is no substantial scoliosis. Normal conus medullaris that terminates at T12-L1 L1-2: Normal endplates. Normal disc height, hydration and morphology. Normal bilateral facet joints. Normal central canal and bilateral lateral recesses. Normal bilateral intervertebral neural foramina. L2-3:: Narrowed disc space with desiccation of disc and minor annular bulge.. Bilateral facet arthropathy and thickening of ligamenta flava more pronounced on the right Normal central canal and bilateral lateral recesses. Moderate bilateral neural foraminal stenosis. L3-4: Grade 1 spondylolisthesis. Narrowed disc space with desiccation of the disc and minor bulging disc osteophyte complex. Facet arthropathy and minor thickening of ligamenta flava slightly worse on the right. Normal central canal. Mild bilateral lateral recess stenosis slightly worse on the right. Severe right neural foraminal stenosis and moderate stenosis on the left exaggerated by shortened pedicles L4-5: Normal endplates. Normal disc height, desiccation and minimal annular bulge.. Facet arthropathy slightly more pronounced on the right. Normal central canal and bilateral lateral recesses. Moderate right neural foraminal stenosis and mild narrowing on the left.. L5-S1: Normal endplates. Normal disc height, hydration and morphology. Bilateral facet arthropathy. Normal central canal and bilateral lateral recesses. Normal bilateral intervertebral neural foramina. Normal visualized sacral ala. Normal visualized paraspinous soft tissue structures. No significant change since prior exam given inherent differences in imaging modalities MRI/Spine Lumbar (Routine) IMPRESSION: No evidence for acute fracture or other significant bony pathology.. Spinal stenosis at L3-4 and L4-5 more severe on the right secondary to disc disease and facet arthropathy and thickening of ligamenta flava. Findings as above Electronically Signed: Moises Welch MD at 16:59 EDT ,
== END | disposition home or self-care (01) ==
LOC: MRI 12:53
PROVIDERS: PCP Family Medicine; Referring Provider Orthopaedic Surgery; Visit Provider Orthopaedic Surgery
DX: M51.26 Other intervertebral disc displacement, lumbar region (principal)
CPT/HCPCS: 72148

== ENCOUNTER 2023-01-18 14:30 | Outpatient (RCR) | payer MEDICARE, MEDICAID, SELFPAY ==
--- NOTE | 2022-10-10 15:05 | HP.PTEVAL_ITS ---
Patient's Visit Information PUSHPA ORELLANA is a 47 year old F referred to Physical Therapy by Dr. Andres Conley DO with a diagnosis of LBP and L hip pain. Date of Evaluation: 10/10/22 Physical Therapist: Hu Huerta, PT, ATC - Visit Plan Frequency: 2-3x /Week Duration: 4-6 Weeks Plan: Aquatic therapy consisting of B LE strengthening, core stab ex's, and HEP - Subjective Pt reports she has been diagnosed with OA in her LB and L hip 2 years ago. Pt notes this pain has progressed over this time span and she is in a lot of pain today. Pt reports she has had aquatic therapy in the past to strengthen her LB, which did make a difference, but she quit therapy a little too early. Pt reports sleep difficulty at this time secondary to pain. Pt also notes she is limited with prolonged standing and ambulation secondary to pain in the R hip and LB region. Pt notes she gets cellulitis in both of her legs and feet secondary to poor circulation. PT has 4 steps to enter her house, which she has to negotiate one step at a time secondary to pain and weakness. 4/10 pain in her LB and L hip while at rest, but elevates to 9/10 at worst, like when she is trying to get in or out of her car. - Pain LB and L Hip Pain Intensity (Out of 10): 4 Pain Intensity Range: 9 - Objective Neuro: B LE sensation is WNL to light touch. MMT: R hip flex= 3/5, L hip flex= 2-/5. L knee ext= 3+/5. All other measurements 4/5. ROM: B LE's are WFL at this time. Gait: Pt is able to ambulate approx 100 feet with rollator until needing to rest secondary to pain - Balance/Special Test Scores Lower Extremity Functional Score: 7 - Goals Goal 1:: Decrease L hip pain x 50% to aid with sleep Goal Time Frame: 4-6 Weeks Goal 2:: Decrease LBP x 50% to aid with increasing tolerance for ambulation Goal Time Frame: 4-6 Weeks Goal 3:: Increase L LE strength x 1 grade to aid with stair negotiation Goal Time Frame: 4-6 Weeks Goal 4:: Pt will be able to ambulate greater than 300 feet with rollator to aid with community ambulation Goal Time Frame: 4-6 Weeks - Rehabilitation Potential Physical Therapy Diagnosis: Pt has L hip and LBP, difficulty with prolonged ambulation, and difficulty with car transfers secondary to degenerative changes in LB and L hip Rehabilitation Potential: Good - Anticipated Interventions Patient/Client Instruction: Educate patient on: Condition, Plan of Care For the Purpose of:: To improve self management Therapeutic Exercise to Include: Strength training, Flexibilty training, Passive ROM, Active ROM, Dynamic Lumbar Stabilization For the Purpose of:: To decrease pain, To increase ROM, To improve muscle performance and motor function Thank you for the opportunity to evaluate your patient. For Medicare and Medicare HMO plans, please review the plan of care and approve it. It will need to be FAXED BACK to us at [phone] for Medicare purposes. For Medicare only, by signing this I certify the plan of care. Please let me know if there are questions or concerns regarding this plan of care. Physician Signature: Date:
--- NOTE | 2022-11-27 17:12 | HP.PTREVAL ---
Re-Evaluation Intro: Dr. Andres Conley, DO, It has been my pleasure to treat PUSHPA ORELLANA over the last 9 visits for LBP and L hip pain. Please see the progress note below for an update on the physical therapy plan of care! Subjective Subjective: I am feeling better overall, but I still need more PT Objective Objective/Function: LBP and L hip pain ranges from 7-9/10 Pt is able to ambulate approximately 60 feet until needing to rest L LE MMT 4+/5 to 5/5 throughout Pt is progressing well with increased strength but continues to lack tolerance for ambulation and severe LBP Plan Plan Plan: Attempt to get 8 more visits to focus on Aquatic therapy consisting of B LE strengthening, core stab ex's, and HEP Balance/Gait/Functional tests Balance/Special Test Scores Lower Extremity Functional Score: 7 Goals Goals Goal 1:: Decrease L hip pain x 50% to aid with sleep Goal Time Frame: 4-6 Weeks Goal Progress: Progressing Goal 2:: Decrease LBP x 50% to aid with increasing tolerance for ambulation Goal Time Frame: 4-6 Weeks Goal Progress: Progressing Goal 3:: Increase L LE strength x 1 grade to aid with stair negotiation Goal Time Frame: 4-6 Weeks Goal Progress: Progressing Goal 4:: Pt will be able to ambulate greater than 300 feet with rollator to aid with community ambulation Goal Time Frame: 4-6 Weeks Goal Progress: Progressing Anticipated Interventions Anticipated Interventions Patient/Client Instruction: Educate patient on: Condition and Plan of Care For the Purpose of:: To improve self management Therapeutic Exercise to Include: Strength training, Flexibilty training, Passive ROM, Active ROM and Dynamic Lumbar Stabilization For the Purpose of:: To decrease pain, To increase ROM and To improve muscle performance and motor function Re-Evaluation Ending Re-evaluation ending: Please do not hesitate to contact me at [phone] by phone or if you have questions or concerns regarding this new plan of care! Sincerely, Hu Huerta, PT, ATC
--- NOTE | 2023-01-18 17:15 | HP.PTDCSUM ---
Discharge Summary D/C summary: It has been my pleasure to treat PUSHPA ORELLANA referred by Dr. Andres Conley DO, with the diagnosis of LBP and L hip pain for a total of 13 visit(s). Discharge Date: Please see the following information for a summary of their discharge status. Subjective Subjective: PT has helped. I always feel better in the pool, then more sore once I get out of the water Pain LB and L Hip: Pain Intensity (Out of 10): 7 Overall Improvement % Improvement: 45 Objective Objective/Function: LBP and B hip pain ranges from 6-8/10 Pt is able to ambulate approx 100 feet until needing to rest secondary to pain MMT: B hips are grossly 4-/5 while B knees are 4+/5 throughout Pt is I with aquatic therapy program Goals Goal 1:: Decrease L hip pain x 50% to aid with sleep Goal Progress: Progressing Goal 2:: Decrease LBP x 50% to aid with increasing tolerance for ambulation Goal Progress: Progressing Goal 3:: Increase L LE strength x 1 grade to aid with stair negotiation Goal Progress: Progressing Goal 4:: Pt will be able to ambulate greater than 300 feet with rollator to aid with community ambulation Goal Progress: Progressing Plan Plan: Discontinue to I aquatic program D/C Information d/c sentence: If there are questions or concerns regarding this patient's physical therapy, please feel free to call me at [phone]. Thank you for the referral of this patient. Sincerely, Hu Huerta, PT, ATC Balance/Gait/Functional tests Balance/Special Test Scores Lower Extremity Functional Score: 9 Improvement % Improvement: 45
== END 2023-01-18 19:00 | disposition home or self-care (01) ==
LOC: PT 14:30
PROVIDERS: PCP Family Medicine; Referring Provider Orthopaedic Surgery; Visit Provider Orthopaedic Surgery
DX: M51.37 Other intervertebral disc degeneration, lumbosacral region (principal); M16.0 Bilateral primary osteoarthritis of hip; E66.01 Morbid (severe) obesity due to excess calories; L03.116 Cellulitis of left lower limb
CPT/HCPCS: 97113; 97161; 97164

== ENCOUNTER 2023-01-22 07:28 | Day surgery (SDC) | payer MEDICARE, MEDICAID, SELFPAY ==
[2023-01-22] VITALS (9 sets, daily range): BP systolic 109–136; BP diastolic 56–75; PULSE 93–103; RESP 16–18; TEMP 36.4–37.8; O2SAT 95–100; BMI 49.6
[2023-01-22 08:17] LABS: INR Fingerstick 1.2; Prothrombin Time Fingerstick 13.4 SEC (11.7-14.9)
[2023-01-22] MEDS: Lactated Ringers 1,000 ML 15 ML IV (08:46)
--- NOTE | 2023-01-22 09:22 | RAD_ITS ---
PROCEDURE: Bilateral medial branch nerve block L4-S1. DATE OF EXAMINATION: January 22, 2023. INDICATION: Female, 47 years old. Chronic low back pain. FLUOROSCOPY TIME (if supplied): (14 seconds) minutes/seconds. 8.43 mGy. 6 images were submitted. RAD/L/S Spine Min 4 Views IMPRESSION: Intraoperative fluoroscopic services provided for bilateral L4-S1 medial branch nerve block. Electronically Signed: Pool Gayle MD at 11:15 EDT ,
--- NOTE | 2023-01-22 09:23 | PCM.OPRPT ---
Report of Operation Date of Procedure: 01/22/23 Description of Surgical Findings:: Pre-Operative Diagnosis: Lumbosacral spondylosis, lumbosacral degenerative disc disease, lumbar facet arthropathy Post-Operative Diagnosis: Lumbosacral spondylosis, lumbosacral degenerative disc disease, lumbar facet arthropathy PROCEDURE PERFORMED: Bilateral lumbar medial branch block at, L4, L5, and S1. ANESTHESIA: MAC. BLOOD LOSS: Minimal. COMPLICATIONS: None. DESCRIPTION OF PROCEDURE: History and physical of today was reviewed. Risks and benefits of the procedure were explained. The patient understood and agreed to proceed. Informed consent was obtained. IV inserted per routine protocol. The patient was taken to the operating room and placed in the prone position with a pillow positioned underneath the abdomen. The lower back area was prepped and draped in a sterile fashion using iodine x3. Under fluoroscopy guidance on AP view, the L4 through S1 vertebral bodies were visualized. The skin and subcutaneous tissue was anesthetized with approximately 5 mL of 1% lidocaine using a 25-gauge regular needle. Under direct visualization with fluoroscopy, at approximately 25-degree angle, starting on the left L4, ending on the right L4, passing through the L5 and S1 bilaterally, using a 22-gauge 5 inch spinal needle, the needle was advanced via the skin. The tip of the needle was maneuvered and directed towards the superior medial gutter of the transverse process at the vicinity of the medial branch. Once tip of the needle was in contact with the bone, the needle was pulled approximately 2 mm off the bone. After negative aspiration for blood or CSF and confirmation on AP, oblique as well as lateral view, a total of 12 mL of preservative-free 0.25% Marcaine with 80 mg of Depo-Medrol was injected in divided doses between those six levels. The needles were then removed intact. The patient experienced no sign or symptoms of intrathecal or intravascular injection. The patient experienced no paresthesia. The procedure was completed without any apparent difficulty or any complications. The patient appeared to tolerate it well. ASSESSMENT AND PLAN: This is a 47-year-old female with lumbosacral spondylosis, lumbosacral degenerative disc disease, lumbar facet arthropathy status post bilateral lumbar medial branch block at L4-S1, patient will continue her current medications, patient will follow in approximately 1 to 2 weeks for reevaluation.
[2023-01-22] MEDS: Cefazolin 2 GM in 0.9% Normal Saline (100mL Bag) 100 ML IV (09:25)
[2023-01-22] MEDS: MethylPREDNISolone Acetate 80 MG/ML Vial (09:31)
[2023-01-22] MEDS: Lidocaine 1% (5 ml sdv) 5 ML Vial (09:31)
[2023-01-22] MEDS: Bupivacaine 0.25% 30 ML Vial (09:31)
--- NOTE | 2023-01-22 10:02 | SUR.PHASEI ---
PATIENT READY FOR TRANSFER TO PHASE II. DID NOT WANT IV REMOVED, WANTS IV PAIN MEDS BUT HASN'T C/O NEED FOR IT UNTIL TRANSFER. WILL MEDICATE w/ DILAUDID.
== END 2023-01-22 11:54 | disposition home or self-care (01) ==
LOC: SDC 07:31 → AC 07:31
PROVIDERS: PCP Family Medicine; Referring Provider Anesthesiology Pain Medicine; Visit Provider Anesthesiology Pain Medicine
PROC: 3E0S3BZ Introduction of Anesthetic Agent into Epidural Space, Percutaneous Approach (ICD-10-PCS; CPT 62322; principal; 2023-01-22 09:15)
DX: M47.816 Spondylosis without myelopathy or radiculopathy, lumbar region (principal); Z93.2 Ileostomy status; M51.37 Other intervertebral disc degeneration, lumbosacral region; M47.817 Spondylosis without myelopathy or radiculopathy, lumbosacral region; Z79.82 Long term (current) use of aspirin; E61.1 Iron deficiency; G47.30 Sleep apnea, unspecified; Z86.718 Personal history of other venous thrombosis and embolism; Z86.19 Personal history of other infectious and parasitic diseases; Z79.01 Long term (current) use of anticoagulants; Z90.49 Acquired absence of other specified parts of digestive tract
CPT/HCPCS: 64494; 64493; 36416; 64483; 72110; 85610; J7120

== ENCOUNTER 2023-03-12 08:05 | Day surgery (SDC) | payer MEDICARE, MEDICAID, SELFPAY ==
[2023-03-12] VITALS (8 sets, daily range): BP systolic 106–151; BP diastolic 67–83; PULSE 105–116; RESP 16; TEMP 36.1–36.7; O2SAT 98–100; BMI 51.4
[2023-03-12] MEDS: Lactated Ringers 1,000 ML 15 ML IV (08:15)
[2023-03-12 08:43] LABS: INR Fingerstick 1.1
--- NOTE | 2023-03-12 09:10 | RAD_ITS ---
PROCEDURE: Bilateral L3-L4 transforaminal epidural steroid injection. DATE OF EXAMINATION: March 12, 2023. INDICATION: Female, 47 years old. Chronic low back pain. FLUOROSCOPY TIME (if supplied): (21.1 seconds) minutes/seconds. 14 mGy. 3 images were submitted. RAD/Lumbar Spine 2 or 3 Views IMPRESSION: Intraoperative imaging provided for L3-L4 bilateral transforaminal epidural steroid injection. Electronically Signed: Pool Gayle MD at 10:48 EST ,
[2023-03-12] MEDS: Lidocaine 1% (5 ml sdv) 5 ML Vial (09:17)
[2023-03-12] MEDS: MethylPREDNISolone Acetate 80 MG/ML Vial (09:18)
[2023-03-12] MEDS: 0.9% Normal Saline (Pres. free 10 ML Vial (09:19)
--- NOTE | 2023-03-12 09:21 | OP.PCM_ITS ---
Report of Operation Date of Procedure: 03/12/23 Description of Surgical Findings:: PREOPERATIVE DIAGNOSES: 1. Lumbosacral radiculopathy. 2. Lumbosacral degenerative disk disease. 3. Lumbosacral spinal stenosis. POSTOPERATIVE DIAGNOSES: 1. Lumbosacral radiculopathy. 2. Lumbosacral degenerative disk disease. 3. Lumbosacral spinal stenosis. PROCEDURE PERFORMED: Bilateral lumbar transforaminal epidural steroid injection, L3-4. ANESTHESIA: MAC. BLOOD LOSS: Minimal. COMPLICATIONS: None. DESCRIPTION OF PROCEDURE: History and physical of today was reviewed. Risks and benefits of the procedure were explained. The patient understood and agreed to proceed. Informed consent was obtained. IV inserted per routine protocol. The patient was taken to the operating room and placed in the prone position with a pillow positioned underneath the abdomen. The lower back was prepped and draped in a sterile fashion using iodine x3. Under fluoroscopy guidance on oblique view, the L3 through L5 vertebral bodies were visualized. The skin and subcutaneous tissue was anesthetized with approximately 5 mL of 1% lidocaine using a 25-gauge regular needle. Under direct visualization with fluoroscopy at approximately 35-degree angle, starting on the right L3, ending on the left L3, using a 22-gauge 5-inch spinal needle, the needle was advanced via the skin. The tip of the needle was maneuvered and directed towards the inferior and medial gutter of the transverse process at the superiormost aspect of the neural foramen. Once the tip of the needle was at the vicinity of the foramen, after negative aspiration for blood or CSF, a total of 1 mL of contrast was injected in divided doses between both levels to confirm correct placement of the needle as well as medial spread. The confirmation was obtained on AP as well as late ral view. After repeated negative aspiration and confirmation on AP as well as lateral view, a total of 3 mL of preservative-free 0.25% Marcaine with 40 mg of Depo-Medrol was injected in left L3-4, and a total of 3 cc of preservative-free normal saline and 40 mg of Depo-Medrol was injected to the right L3-4. The needles were then removed intact. The patient experienced no sign or symptoms of intrathecal or intravascular injection. The patient experienced no paresthesia. The procedure was completed without any apparent difficulty or any complications. The patient appeared to tolerate it well. ASSESSMENT AND PLAN: This is a 47-year-old female with lumbosacral radiculopathy, lumbosacral degenerative disk disease, and lumbosacral spinal stenosis, status post bilateral lumbar transforaminal epidural steroid injection at L3-4. The patient will continue her current medications. The patient will follow up in approximately 2 weeks for reevaluation.
== END 2023-03-12 10:57 | disposition home or self-care (01) ==
LOC: SDC 08:06 → AC 08:08
PROVIDERS: PCP Family Medicine; Visit Provider Anesthesiology Pain Medicine
PROC: 3E0S3BZ Introduction of Anesthetic Agent into Epidural Space, Percutaneous Approach (ICD-10-PCS; principal; 2023-03-12 09:45)
DX: M51.17 Intervertebral disc disorders with radiculopathy, lumbosacral region (principal); M48.07 Spinal stenosis, lumbosacral region; Z79.82 Long term (current) use of aspirin; Z79.01 Long term (current) use of anticoagulants
CPT/HCPCS: 01992; 64483; 36416; 72100; 85610; J7120; J3490

== ENCOUNTER 2023-03-12 11:58 | Emergency (ER) | payer MEDICARE, MEDICAID, SELFPAY ==
[2023-03-12 12:01] VITALS: BP 130/76; PULSE 109; RESP 18; TEMP 36.8; O2SAT 99
--- NOTE | 2023-03-12 14:13 | EX.ED.DYSGE1 ---
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 Depression Diverticulitis Easy bruising Excessive bleeding Gastric reflux History of blood transfusion History of Clostridium difficile infection History of DVT (deep vein thrombosis) History of edema History of GI bleed History of IBS History of pulmonary embolism Ileostomy in place Irritable bowel syndrome (IBS) Leg cramps Low iron Morbid obesity Non-smoker Pain of left lower extremity Post-menopausal Restless legs Shortness of breath on exertion Sleep apnea Venous insufficiency of both lower extremities Walker as 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 Wears glasses Home Medications calcium carbonate 600 mg-vitamin D3 12.5 mcg (500 unit) capsule 1 tab PO BID SUPPLEMENT 12/13/17 [History Last Taken 05/11/22] ferrous sulfate 325 mg (65 mg iron) tablet 325 mg PO BID anemia 12/13/17 [History Last Taken 05/11/22] zinc sulfate 50 mg zinc (220 mg) capsule 220 mg PO QHS SUPPLEMENT 12/13/17 [History Last Taken 05/11/22] acetaminophen 500 mg tablet 1,000 mg PO Q6H PRN Pain 12/21/17 [History Last Taken 04/03/22 08:15] ascorbic acid (vitamin C) 1,000 mg tablet (Vitamin C) 3,000 mg PO BID SUPPLEMENT 12/21/17 [History Last Taken 05/11/22] ergocalciferol (vitamin D2) 1,250 mcg (50,000 unit) capsule (Vitamin D2) 50,000 unit PO MO supplement 12/21/17 [History Last Taken 05/08/22] magnesium oxide 400 mg PO BID SUPPLEMENT 12/21/17 [History Last Taken 05/11/22] aspirin 81 mg chewable tablet 2 tab PO DAILY HEART HEALTH 04/22/20 [History Last Taken 05/11/22] Bacillus coagulans 10 billion cell capsule,delayed release (Probiotic (B. coagulans)) 1 cell PO DAILY GUT HEALTH 07/08/21 [History Last Taken 05/11/22] duloxetine 60 mg capsule,delayed release sprinkle 60 mg PO QHS DEPRESSION 07/08/21 [History Last Taken 05/11/22] diphenoxylate-atropine 2.5 mg-0.025 mg tablet (Lomotil) 2 tab PO 4X/DAY IBS 07/27/21 [History Last Taken 05/11/22] diclofenac sodium 1 % topical gel 2 - 4 g topical UD PAIN 12/05/21 [History Last Taken 05/11/22] tramadol 50 mg tablet 50 - 100 mg PO Q6H PRN Pain 03/06/22 [History Last Taken 05/11/22] cholecalciferol (vitamin D3) 50 mcg (2,000 unit) tablet 6,000 unit PO QHS SUPPLEMENT 05/12/22 [History Last Taken 05/11/22] omeprazole 20 mg capsule,delayed release 40 mg PO 0500 ACID REFLUX 05/12/22 [History Last Taken 01/22/23] warfarin 2 mg tablet 4 mg PO QHS BLOOD THINNER 05/12/22 [History Last Taken 01/17/23] duloxetine 20 mg capsule,delayed release 20 mg PO ONCE 12/20/22 [History Last Taken Unknown] Allergy/AdvReac Type Severity Reaction Status Date / Time latex Allergy Rash Verified 03/12/23 12:00 amoxicillin AdvReac Nausea/Vom/ Verified 03/12/23 12:00 Diarrhea cephalexin AdvReac Nausea/Vom/ Verified 03/12/23 12:00 Diarrhea naproxen AdvReac Nausea/Vom/ Verified 03/12/23 12:00 Diarrhea sulfamethoxazole AdvReac Nausea/Vom/ Verified 03/12/23 12:00 [From Bactrim] Diarrhea trimethoprim [From Bactrim] AdvReac Nausea/Vom/ Verified 03/12/23 12:00 Diarrhea Surgical History H/O colectomy History of colonoscopy History of esophagogastroduodenoscopy (EGD) History of rectal surgery History of selective injection of anesthetic agent around lumbar nerve root Hx of foot surgery Ileostomy status Social History Smoking Status: Never smoker alcohol intake: never substance use type: does not use EXAM Physical Exam Const Vital Signs: 03/12/23 12:01 Temperature 98.2 F Temperature Source Temporal Pulse Rate 109 H Respiratory Rate 18 Blood Pressure 130/76 H Blood Pressure Mean 94 Pulse Ox 99 Oxygen Delivery Method Room Air MDM MDM MDM Narrative Medical decision making narrative: ED attending note: I evaluated the patient in conjunction with the KAYLI. I agree with his/her statements and above findings. I have personally performed a face to face assessment of the patient and have reviewed the KAYLI Note. I performed a substantive portion of the visit including all aspects of the following. I personally saw the patient performed chart review, physical exam, reviewed labs, imaging (if obtained), and formulated a treatment and management plan. Brief history: 47-year-old female here with concern for left leg redness pain and cellulitis. Exam: Nursing triage notes reviewed, Vital signs reviewed Constitutional: please see mdm Extremities: Chronic appearing edema, no redness, no pain, no warmth, no signs of cellulitic changes. Neuro: Intact sensation L1-S1 dermatomal distributions. Intact 5/5 strength in hip flexion (T12-L3). Knee extension (L2-L4). Ankle dorsiflexion (L4-L5). Ankle plantar flexion (S1). Great toe extension (L5). 2+ patellar and Achilles DTRs. Skin: Chronic venous stasis changes, no erythema, no warmth, no fluctuance, no induration no crepitus or bullae. MDM/plan: Chief Complaint: Leg redness, concern for cellulitis External records reviewed: Imaging reviewed: X-ray of the tibia shows soft tissue swelling Factors affecting care: Morbid obesity, liver disease, chronic venous stasis changes Social determinants of health: None MDM narrative: Patient was hemodynamically stable, afebrile, nontoxic-appearing. Shared decision making: I will have a discussion with the patient and or visitors regarding risk/benefits of further testing or admission. They will be made aware of of the risk/benefits inherent in this decision they will be given the opportunity to voice understanding. Discharge Plan Triage Chief Complaint: Cellulitis ED Midlevel Provider: Tyler Roa ED Provider: Norris Espino Dx/Rx/DC Orders Clinical Impression: Chronic wound Instructions: ED Wound Check (No Infection) Prescriptions: No Action diphenoxylate-atropine [Lomotil] 2.5-0.025 mg tablet 2 tab PO 4X/DAY duloxetine 20 mg capsule,delayed release(DR/EC) 20 mg PO ONCE zinc sulfate 220 MG capsule 220 mg PO QHS calcium carbonate-vitamin D3 1 EACH capsule 1 tab PO BID ferrous sulfate 325 MG tablet 325 mg PO BID ergocalciferol (vitamin D2) [Vitamin D2] 50,000 UNIT capsule 50,000 unit PO MO ascorbic acid (vitamin C) [Vitamin C] 1,000 MG tablet 3,000 mg PO BID magnesium oxide 400 MG tablet 400 mg PO BID acetaminophen 500 MG tablet 1,000 mg PO Q6H PRN (Reason: Pain) aspirin 81 MG tablet,chewable 2 tab PO DAILY Probiotic (B. coagulans) 10 billion cell Capsule,Delayed Release(Dr/Ec) 1 cell PO DAILY duloxetine 60 mg Capsule, Delayed Rel Sprinkle 60 mg PO QHS diclofenac sodium 1 % Gel 2 - 4 g TOPICAL UD tramadol 50 mg Tablet 50 - 100 mg PO Q6H PRN (Reason: Pain) warfarin 2 mg tablet 4 mg PO QHS omeprazole 20 mg capsule,delayed release(DR/EC) 40 mg PO 0500 cholecalciferol (vitamin D3) 50 mcg (2,000 unit) Tablet 6,000 unit PO QHS Primary Care Provider: Karly Bose Referrals: Karly Bose DO [Primary Care Provider] - Activity Restrictions/Additional Instructions: Your legs were asymptomatic today. Continue taking your medications, return for any worsening symptoms Disposition Disposition: Home, Self Care Discharge Date/Time: 03/12/23 14:39
--- NOTE | 2023-03-12 14:22 | EX.ED.DYSGE1 ---
HPI <SVEN Martinez - Last Filed: 03/12/23 14:28> History of Present Illness Chief Complaint: Cellulitis Narrative Narrative: Patient is a 47-year-old female with history of morbid obesity, chronic back pain, hypothyroidism, hypertension who presents to the emergency department for concern of cellulitis to the left leg. Patient was at the pain management clinic today getting a injection to her lower back. She was given pain medicine there. When the patient looked at her legs, she saw red and warmth to the left leg medial above her knee down to her foot. They were immediately concerned for cellulitis, and told to go to the emergency department for evaluation. Once the patient arrived here, the patient had no redness to her lower extremities. Patient denies any fever or chills, patient is currently on Cipro and Flagyl for a chronic wound to the left lower extremity PFS <SVEN Martinez - Last Filed: 03/12/23 14:28> [facility] Medical History Back pain Chronic acquired lymphedema CPAP (continuous positive airway pressure) dependence Current use of long term care pharmacist anticoagulation Depression Diverticulitis Easy bruising Excessive bleeding Gastric reflux History of blood transfusion History of Clostridium difficile infection History of DVT (deep vein thrombosis) History of edema History of GI bleed History of IBS History of pulmonary embolism Ileostomy in place Irritable bowel syndrome (IBS) Leg cramps Low iron Morbid obesity Non-smoker Pain of left lower extremity Post-menopausal Restless legs Shortness of breath on exertion Sleep apnea Venous insufficiency of both lower extremities Walker as 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 Wears glasses Home Medications calcium carbonate 600 mg-vitamin D3 12.5 mcg (500 unit) capsule 1 tab PO BID SUPPLEMENT 12/13/17 [History Last Taken 05/11/22] ferrous sulfate 325 mg (65 mg iron) tablet 325 mg PO BID anemia 12/13/17 [History Last Taken 05/11/22] zinc sulfate 50 mg zinc (220 mg) capsule 220 mg PO QHS SUPPLEMENT 12/13/17 [History Last Taken 05/11/22] acetaminophen 500 mg tablet 1,000 mg PO Q6H PRN Pain 12/21/17 [History Last Taken 04/03/22 08:15] ascorbic acid (vitamin C) 1,000 mg tablet (Vitamin C) 3,000 mg PO BID SUPPLEMENT 12/21/17 [History Last Taken 05/11/22] ergocalciferol (vitamin D2) 1,250 mcg (50,000 unit) capsule (Vitamin D2) 50,000 unit PO MO supplement 12/21/17 [History Last Taken 05/08/22] magnesium oxide 400 mg PO BID SUPPLEMENT 12/21/17 [History Last Taken 05/11/22] aspirin 81 mg chewable tablet 2 tab PO DAILY HEART HEALTH 04/22/20 [History Last Taken 05/11/22] Bacillus coagulans 10 billion cell capsule,delayed release (Probiotic (B. coagulans)) 1 cell PO DAILY GUT HEALTH 07/08/21 [History Last Taken 05/11/22] duloxetine 60 mg capsule,delayed release sprinkle 60 mg PO QHS DEPRESSION 07/08/21 [History Last Taken 05/11/22] diphenoxylate-atropine 2.5 mg-0.025 mg tablet (Lomotil) 2 tab PO 4X/DAY IBS 07/27/21 [History Last Taken 05/11/22] diclofenac sodium 1 % topical gel 2 - 4 g topical UD PAIN 12/05/21 [History Last Taken 05/11/22] tramadol 50 mg tablet 50 - 100 mg PO Q6H PRN Pain 03/06/22 [History Last Taken 05/11/22] cholecalciferol (vitamin D3) 50 mcg (2,000 unit) tablet 6,000 unit PO QHS SUPPLEMENT 05/12/22 [History Last Taken 05/11/22] omeprazole 20 mg capsule,delayed release 40 mg PO 0500 ACID REFLUX 05/12/22 [History Last Taken 01/22/23] warfarin 2 mg tablet 4 mg PO QHS BLOOD THINNER 05/12/22 [History Last Taken 01/17/23] duloxetine 20 mg capsule,delayed release 20 mg PO ONCE 12/20/22 [History Last Taken Unknown] Allergy/AdvReac Type Severity Reaction Status Date / Time latex Allergy Rash Verified 03/12/23 12:00 amoxicillin AdvReac Nausea/Vom/ Verified 03/12/23 12:00 Diarrhea cephalexin AdvReac Nausea/Vom/ Verified 03/12/23 12:00 Diarrhea naproxen AdvReac Nausea/Vom/ Verified 03/12/23 12:00 Diarrhea sulfamethoxazole AdvReac Nausea/Vom/ Verified 03/12/23 12:00 [From Bactrim] Diarrhea trimethoprim [From Bactrim] AdvReac Nausea/Vom/ Verified 03/12/23 12:00 Diarrhea Surgical History H/O colectomy History of colonoscopy History of esophagogastroduodenoscopy (EGD) History of rectal surgery History of selective injection of anesthetic agent around lumbar nerve root Hx of foot surgery Ileostomy status Social History Smoking Status: Never smoker alcohol intake: never substance use type: does not use ROS <SVEN Martinez - Last Filed: 03/12/23 14:28> ROS ED ROS Narrative Constitutional: Negative for fever, chills, weight loss, weakness Eyes: Negative for vision loss, vision change, double vision ENT: Negative for any sore throat, ear pain, congestion Cardiovascular: Negative for any chest pain, tightness, palpitations Respiratory: Negative for any cough, sputum production, hemoptysis, dyspnea, dyspnea on exertion, orthopnea Gastrointestinal: Negative for any abdominal pain, nausea, vomiting, diarrhea, constipation, blood in stool, blood in vomit : Negative for any urinary frequency, dysuria, retention, blood in urine Muscle skeletal: Negative for any myalgias, arthralgias, neck pain, back pain Neurological: Negative for any headache, syncope, numbness or tingling, dizziness Skin: Negative for any rashes, lumps, itching, abrasions, lacerations. Positive for concern of redness to the left lower extremity Psychiatric: Negative for any depression, anxiety, stress, suicidal ideation, homicidal ideation Hematologic: Negative for any easy bruising, excessive bruising, easy bleeding Allergies: Negative for any eczema, hives, rash <Dr. Norris Espino, - Last Filed: 03/15/23 10:24> ROS ED ROS Narrative Constitutional: Negative for fever, chills, weight loss, weakness Eyes: Negative for vision loss, vision change, double vision ENT: Negative for any sore throat, ear pain, congestion Cardiovascular: Negative for any chest pain, tightness, palpitations Respiratory: Negative for any cough, sputum production, hemoptysis, dyspnea, dyspnea on exertion, orthopnea Gastrointestinal: Negative for any abdominal pain, nausea, vomiting, diarrhea, constipation, blood in stool, blood in vomit : Negative for any urinary frequency, dysuria, retention, blood in urine Muscle skeletal: Negative for any myalgias, arthralgias, neck pain, back pain Neurological: Negative for any headache, syncope, numbness or tingling, dizziness Skin: Negative for lumps, itching, abrasions, lacerations. Positive for concern of redness to the left lower extremity Psychiatric: Negative for any depression, anxiety, stress, suicidal ideation, homicidal ideation Hematologic: Negative for any easy bruising, excessive bruising, easy bleeding Allergies: Negative for any eczema, hives, rash EXAM <SVEN Martinez - Last Filed: 03/12/23 14:28> Physical Exam Narrative Exam Narrative: Vital signs reviewed. HEET: Head normocephalic atraumatic, TMs clear bilaterally. Posterior pharynx is clear, moist mucous membranes. Nares clear bilaterally. Neck: Supple with no lymphadenopathy or tenderness. No signs of meningismus. Cardiac: Regular rate and rhythm no murmurs gallops or rubs, equal peripheral pulses bilaterally. Respiratory: Lungs clear to auscultation bilaterally. No chest tenderness. Abdomen: Soft, nontender, nondistended. No abdominal bruit or pulsatile masses. No hepatosplenomegaly Extremities: No peripheral edema, no signs of gross trauma or deformity. Active full range of motion of all extremities. Patient does have a chronic wound to the left lower leg that is well appearing. Patient has no signs or symptoms of cellulitis, there is no warmth. Patient's right leg does show some chronic insufficiency however nothing acute. +2 pedal pulse bilaterally. Asymptomatic exam Neuro: Cranial nerves II through XII intact, no focal neurological deficits. Skin: Clean dry and intact with no rash, purpura, petechiae, vesicles or pustules. Backs/flank: No CVA tenderness, no midline spinal tenderness, no deformity. Psych: Normal mood and affect. No SI, HI or acute psychosis. Const Vital Signs: 03/12/23 12:01 Temperature 98.2 F Temperature Source Temporal Pulse Rate 109 H Respiratory Rate 18 Blood Pressure 130/76 H Blood Pressure Mean 94 Pulse Ox 99 Oxygen Delivery Method Room Air <Dr. Norris Espino DO - Last Filed: 03/15/23 10:24> Physical Exam Const Vital Signs: 03/12/23 12:01 Temperature 98.2 F Temperature Source Temporal Pulse Rate 109 H Respiratory Rate 18 Blood Pressure 130/76 H Blood Pressure Mean 94 Pulse Ox 99 Oxygen Delivery Method Room Air [facility] <Tyler RoaSVEN - Last Filed: 03/12/23 14:28> [facility] Treatment and Re-Evaluation :: Patient appears generally well, patient appears nontoxic, vital signs are stable. Patient presents to the emergency department concerning for left leg redness concern for cellulitis. Differential diagnosis includes cellulitis, vascular sufficiency, DVT. Upon my physical examination, there is no redness. Per the patient, the patient's mom states that her legs now look normal. They are unsure why they were read at that time. At this time, I do not believe there is any concern for cellulitis, patient's chronic wound looks well-appearing and the patient is on antibiotics. At this time, the patient like to be discharged. No new prescriptions will be given. They will continue to look at her lower extremities to ensure there is no change. But at this time there is no symptoms. Patient stable for discharge <Dr. Norris Espino, DO - Last Filed: 03/15/23 10:24> [facility] Narrative Medical decision making narrative: ED attending note: I evaluated the patient in conjunction with the KAYLI. I agree with his/her statements and above findings. I have personally performed a face to face assessment of the patient and have reviewed the KAYLI Note. I performed a substantive portion of the visit including all aspects of the following. I personally saw the patient performed chart review, physical exam, reviewed labs, imaging (if obtained), and formulated a treatment and management plan. Brief history: 47-year-old female here with concern for left leg redness pain and cellulitis. Exam: Nursing triage notes reviewed, Vital signs reviewed Constitutional: please see [facility] [place] Extremities: Chronic appearing edema, no redness, no pain, no warmth, no signs of cellulitic changes. Neuro: Intact sensation L1-S1 dermatomal distributions. Intact 5/5 strength in hip flexion (T12-L3). Knee extension (L2-L4). Ankle dorsiflexion (L4-L5). Ankle plantar flexion (S1). Great toe extension (L5). 2+ patellar and Achilles DTRs. Skin: Chronic venous stasis changes, no erythema, no warmth, no fluctuance, no induration no crepitus or bullae. MDM/plan: Chief Complaint: Leg redness, concern for cellulitis External records reviewed: Imaging reviewed: X-ray of the tibia shows soft tissue swelling Factors affecting care: Morbid obesity, liver disease, chronic venous stasis changes Social determinants of health: None MDM narrative: Patient was hemodynamically stable, afebrile, nontoxic-appearing. Exam unremarkable no clinical evidence of cellulitis, necrotizing fasciitis, abscess or other infectious etiology. Unclear etiology unlikely to be life-threatening. Discussed return precautions and follow-up instruction with the patient. Shared decision making: I will have a discussion with the patient and or visitors regarding risk/benefits of further testing or admission. They will be made aware of of the risk/benefits inherent in this decision they will be given the opportunity to voice understanding. Discharge Plan Triage Chief Complaint: Cellulitis ED Midlevel Provider: Tyler Roa ED Provider: Norris Espino Dx/Rx/DC Orders Clinical Impression: Chronic wound Instructions: ED Wound Check (No Infection) Prescriptions: No Action diphenoxylate-atropine [Lomotil] 2.5-0.025 mg tablet 2 tab PO 4X/DAY duloxetine 20 mg capsule,delayed release(DR/EC) 20 mg PO ONCE zinc sulfate 220 MG capsule 220 mg PO QHS calcium carbonate-vitamin D3 1 EACH capsule 1 tab PO BID ferrous sulfate 325 MG tablet 325 mg PO BID ergocalciferol (vitamin D2) [Vitamin D2] 50,000 UNIT capsule 50,000 unit PO MO ascorbic acid (vitamin C) [Vitamin C] 1,000 MG tablet 3,000 mg PO BID magnesium oxide 400 MG tablet 400 mg PO BID acetaminophen 500 MG tablet 1,000 mg PO Q6H PRN (Reason: Pain) aspirin 81 MG tablet,chewable 2 tab PO DAILY Probiotic (B. coagulans) 10 billion cell Capsule,Delayed Release(Dr/Ec) 1 cell PO DAILY duloxetine 60 mg Capsule, Delayed Rel Sprinkle 60 mg PO QHS diclofenac sodium 1 % Gel 2 - 4 g TOPICAL UD tramadol 50 mg Tablet 50 - 100 mg PO Q6H PRN (Reason: Pain) warfarin 2 mg tablet 4 mg PO QHS omeprazole 20 mg capsule,delayed release(DR/EC) 40 mg PO 0500 cholecalciferol (vitamin D3) 50 mcg (2,000 unit) Tablet 6,000 unit PO QHS Primary Care Provider: Karly Bose Referrals: Karly Bose DO [Primary Care Provider] - Activity Restrictions/Additional Instructions: Your legs were asymptomatic today. Continue taking your medications, return for any worsening symptoms Disposition Disposition: Home, Self Care Discharge Date/Time: 03/12/23 14:39
== END 2023-03-12 14:39 | disposition home or self-care (01) ==
PROVIDERS: Emergency Provider Emergency Medicine; PCP Family Medicine; Visit Provider Emergency Medicine
DX: S81.802A Unspecified open wound, left lower leg, initial encounter (principal); E66.01 Morbid (severe) obesity due to excess calories; X58.XXXA Exposure to other specified factors, initial encounter; K76.9 Liver disease, unspecified; I10 Essential (primary) hypertension; M79.89 Other specified soft tissue disorders; M54.9 Dorsalgia, unspecified; I87.8 Other specified disorders of veins; G89.29 Other chronic pain; E03.9 Hypothyroidism, unspecified; Z79.82 Long term (current) use of aspirin; Z79.01 Long term (current) use of anticoagulants; Z79.899 Other long term (current) drug therapy
CPT/HCPCS: 99282

== ENCOUNTER 2023-04-09 08:56 | Day surgery (SDC) | payer MEDICARE, MEDICAID, SELFPAY ==
[2023-04-09 09:13] LABS: INR Fingerstick 3.3; Prothrombin Time Fingerstick 35.5 SEC (11.7-14.9)
[2023-04-09] MEDS: Lactated Ringers 1,000 ML 15 ML IV (09:15)
[2023-04-09 09:17] VITALS: BP 125/92; PULSE 107; RESP 18; TEMP 36.7; O2SAT 95; BMI 51.4
--- NOTE | 2023-04-09 09:30 | RAD_ITS ---
PROCEDURE: Left hip injection. DATE OF EXAMINATION: April 09, 2023. INDICATION: Female, 47 years old. Hip pain. FLUOROSCOPY TIME (if supplied): (7.4 seconds) minutes/seconds. 6.13 mgy. 2 images were submitted. RAD/Fluoro Guided Needle Placement IMPRESSION: Intraoperative fluoroscopic services provided for left hip injection. Electronically Signed: Pool Gayle MD at 11:25 EST ,
[2023-04-09 10:20] LABS: International Normalized Ratio 2.8; Prothrombin Time (Protime)PT. 29.6 SECONDS (11.7-14.9)
[2023-04-09] MEDS: MethylPREDNISolone Acetate 80 MG/ML Vial (10:32)
[2023-04-09] MEDS: Lidocaine 1% (5 ml sdv) 5 ML Vial (10:32)
--- NOTE | 2023-04-09 10:38 | PCM.OPRPT ---
Report of Operation Date of Procedure: 04/09/23 Description of Surgical Findings:: PREOPERATIVE DIAGNOSIS: Osteoarthritis of the left hip POSTOPERATIVE DIAGNOSIS: Osteoarthritis of the left hip PROCEDURE PERFORMED: Left hip intraarticular steroid injection under fluoroscopy guidance. ANESTHESIA: MAC. BLOOD LOSS: Minimal. COMPLICATIONS: None. DESCRIPTION OF PROCEDURE: History and physical of today was reviewed. Risks and benefits of the procedure were explained. The patient understood and agreed to proceed. Informed consent was obtained. IV inserted per routine protocol. The patient was taken to the operating room and placed in the supine position. The left hip area was prepped and draped in a sterile fashion using iodine x3. Under fluoroscopy guidance on AP view, the left hip joint was visualized. The skin and subcutaneous tissue was anesthetized with approximately 3 mL of 1% lidocaine using a 25-gauge regular needle approximately 3 cm cephalad to the left greater trochanter. Under direct visualization with fluoroscopy on an AP view, using a 22-gauge 6-inch spinal needle, the needle was advanced via the skin using the lateral approach. The tip of the needle was maneuvered and directed towards the superiormost aspect of the hip joint. Once the tip of the needle was at the vicinity of the joint, after negative aspiration for blood and positive aspiration of synovial fluid, a total of 1 mL of contrast was injected to confirm correct placement of the needle as well as halo spread around the hip joint. After repeated negative aspiration for blood and confirmation on AP as well as oblique view, a total of 10 mL of preservative-free 0.25% Marcaine with 80 mg of Depo-Medrol was injected easily. The needle was then removed intact. The patient experienced no sign or symptoms of intrathecal or intravascular injection. The patient experienced no paresthesia. The procedure was completed without any apparent difficulty or any complications. The patient appeared to tolerate it well. ASSESSMENT AND PLAN: This is a 47-year-old female with osteoarthritis of the left hip status post left hip intra-articular steroid injection under fluoroscopic guidance, patient will continue her current medications, patient will follow in approximately 2 weeks for reevaluation.
[2023-04-09 10:40] VITALS: BP 105/57; BP 125/92; PULSE 106; RESP 18; TEMP 36.2; O2SAT 98
[2023-04-09 10:42] VITALS: BP 109/68; BP 125/92; PULSE 102; RESP 18; O2SAT 98
[2023-04-09 10:55] VITALS: BP 119/45; BP 125/92; PULSE 100; RESP 18; O2SAT 99
[2023-04-09 11:02] VITALS: BP 116/69; BP 125/92; PULSE 102; RESP 18; TEMP 36.2; O2SAT 98
[2023-04-09 11:21] VITALS: BP 125/92
== END 2023-04-09 11:52 | disposition home or self-care (01) ==
LOC: SDC 08:56 → AC 08:57
PROVIDERS: Anesthesiology; PCP Family Medicine; Referring Provider Anesthesiology Pain Medicine; Visit Provider Anesthesiology Pain Medicine
PROC: 3E0U3GC Introduction of Other Therapeutic Substance into Joints, Percutaneous Approach (ICD-10-PCS; CPT 20610; principal; 2023-04-09 10:25)
DX: M16.12 Unilateral primary osteoarthritis, left hip (principal); M16.11 Unilateral primary osteoarthritis, right hip; K58.9 Irritable bowel syndrome, unspecified; F32.A Depression, unspecified; M79.7 Fibromyalgia; M47.27 Other spondylosis with radiculopathy, lumbosacral region; M48.07 Spinal stenosis, lumbosacral region; G47.33 Obstructive sleep apnea (adult) (pediatric); Z79.82 Long term (current) use of aspirin; Z79.899 Other long term (current) drug therapy; Z79.01 Long term (current) use of anticoagulants; Z86.711 Personal history of pulmonary embolism; Z86.718 Personal history of other venous thrombosis and embolism
CPT/HCPCS: 20610; 01991; 36416; 76000; 77002; 85610; J7120

== ENCOUNTER → 2023-05-02 | Outpatient (CLI) | payer MEDICARE, MEDICAID, SELFPAY ==
[2023-05-02 16:35] LABS: Absolute Lymphocyte Count 1.25 X10^3/uL (0.83-4.51); Absolute Neutrophil Count 5.7 X10^3/uL (2.0-7.7); Basophil# 0.06 X10^3/uL; Basophil% 0.8 % (0-1); Eosinophil# 0.17 X10^3/uL; Eosinophils% 2.2 % (0-5); Hematocrit 32.3 % (37-47); Hemoglobin 10.2 g/dL (12.0-15.0); Lymphocyte # 1.25 X10^3/ul (0.83-4.51); Lymphocyte % 15.8 % (19-41); Mean Corp Hgb Conc 31.6 g/dL (32-36); Mean Corpuscular Hgb 29.1 pg (27.0-32.0); Mean Corpuscular Volume 92.3 fL (81-99); Mean Platelet Vol. 10.3 fl (6.2-12.0); Monocyte# 0.59 X10^3/uL; Monocyte% 7.5 % (0-10); NRBC Flagged by Analyzer 0 % (0-5); Neutrophil # 5.73 X10^3/uL (2.7-7.7); Neutrophil % 72.4 % (47-70); Platelet Count 219 K/mm3 (150-450); RBC Distribution Width CV 14.6 % (11.6-14.6); RBC Distribution Width SD 48.9 fl (35.1-43.9); White Blood Count 7.9 K/mm3 (4.4-11.0)
[2023-05-02 16:48] LABS: International Normalized Ratio 2.9
[2023-05-02 17:09] LABS: AST(SGOT) 6 U/L (15-37); Alanine Aminotransfer ALT/SGPT 34 U/L (13-56); Albumin, Serum 2.8 g/dL (3.2-5.0); Alkaline Phosphatase 114 U/L (45-117); Anion Gap 5 (5-15); BUN 19 mg/dL (7-18); BUN/Creat Ratio 14.5 RATIO (10-20); Bilirubin, Direct 0.08 mg/dL (0.00-0.30); Chloride 110 mmol/L (98-107); Creatinine, Serum 1.31 mg/dL (0.55-1.02); EST Glomerular Filtration Rate 46 mL/min (>60); Est Glom Filt Rate - Afr Amer 56 mL/min (>60); Glucose 96 mg/dL (74-106); Potassium 4.2 mmol/L (3.5-5.1); Protein, Total 6.8 g/dL (6.4-8.2); Sodium Level 139 mmol/L (136-145)
== END | disposition home or self-care (01) ==
PROVIDERS: PCP Family Medicine
DX: K75.81 Nonalcoholic steatohepatitis (NASH) (principal)
CPT/HCPCS: 36415; 80048; 80076; 85025; 85610; 85730

== ENCOUNTER 2023-06-11 08:41 | Day surgery (SDC) | payer MEDICARE, MEDICAID, SELFPAY ==
[2023-06-11 08:59] LABS: INR Fingerstick 2.7; Prothrombin Time Fingerstick 27.5 SEC (11.7-14.9)
[2023-06-11 09:22] VITALS: BP 153/66; PULSE 108; RESP 16; TEMP 36.6; O2SAT 97; BMI 52.6
[2023-06-11] MEDS: Lactated Ringers 1,000 ML 15 ML IV (09:28)
--- NOTE | 2023-06-11 09:49 | RAD_ITS ---
PROCEDURE: Left hip injection. DATE OF EXAMINATION: June 11, 2023. INDICATION: Female, 48 years old. Chronic left hip pain. FLUOROSCOPY TIME (if supplied): (3 seconds) minutes/seconds. 1.24 mGy. 3 spot images were obtained. RAD/Fluoro Guided Needle Placement IMPRESSION: Intraoperative imaging provided for left hip injection. Electronically Signed: Pool Galye MD at 13:10 EST ,
[2023-06-11 09:53] LABS: Hemoglobin A1c 5.9 % (3.8-5.6)
[2023-06-11] MEDS: MethylPREDNISolone Acetate 80 MG/ML Vial (10:00)
[2023-06-11] MEDS: Lidocaine 1% (5 ml sdv) 5 ML Vial (10:01)
--- NOTE | 2023-06-11 10:02 | PCM.OPRPT ---
Report of Operation Date of Procedure: 06/11/23 Description of Surgical Findings:: PREOPERATIVE DIAGNOSIS: Osteoarthritis of the left hip, left greater trochanteric bursitis POSTOPERATIVE DIAGNOSIS: Osteoarthritis of the left hip, left greater trochanteric bursitis PROCEDURE PERFORMED: Left greater trochanteric bursa steroid injection under fluoroscopy guidance. ANESTHESIA: MAC. BLOOD LOSS: Minimal. COMPLICATIONS: None. DESCRIPTION OF PROCEDURE: History and physical of today was reviewed. Risks and benefits of the procedure were explained. The patient understood and agreed to proceed. Informed consent was obtained. IV inserted per routine protocol. The patient was taken to the operating room and placed in the supine position. The left hip area was prepped and draped in a sterile fashion using iodine x3. Under fluoroscopy guidance on AP view, the left hip joint was visualized. The skin and subcutaneous tissue was anesthetized with approximately 3 mL of 1% lidocaine using a 25-gauge regular needle at the left greater trochanter. Under direct visualization with fluoroscopy on an AP view, using a 22-gauge 5-inch spinal needle, the needle was advanced via the skin using the lateral approach. The tip of the needle was maneuvered and directed towards the superiormost aspect of the greater trochanter. Once the tip of the needle was at the vicinity of the bursa, after negative aspiration for blood a total of 3 mL of contrast was injected to confirm correct placement of the needle at the greater trochanteric bursa with the cephalocaudad spread after repeated negative aspiration for blood and confirmation on AP as well as oblique view, a total of 10 mL of preservative-free 0.25% Marcaine with 80 mg of Depo-Medrol was injected easily. The needle was then removed intact. The patient experienced no sign or symptoms of intrathecal or intravascular injection. The patient experienced no paresthesia. The procedure was completed without any apparent difficulty or any complications. The patient appeared to tolerate it well. ASSESSMENT AND PLAN: This is a 48-year-old Female with osteoarthritis of the left hip, left greater trochanteric bursitis status post left greater trochanteric bursa steroid injection under fluoroscopic guidance, patient will continue her current medications, patient will follow in approximately 2 weeks for reevaluation.
[2023-06-11 10:07] VITALS: BP 108/71; BP 153/66; PULSE 107; RESP 16; TEMP 37.2; O2SAT 97
[2023-06-11 10:10] VITALS: BP 108/71; BP 153/66; PULSE 106; RESP 16; O2SAT 97
[2023-06-11 10:10] LABS: ALB/GLOB Ratio 0.7 RATIO (0.9-2.4); AST(SGOT) 9 U/L (15-37); Alanine Aminotransfer ALT/SGPT 39 U/L (13-56); Alkaline Phosphatase 118 U/L (45-117); Anion Gap 6 (5-15); BUN 24 mg/dL (7-18); BUN/Creat Ratio 23.5 RATIO (10-20); Calcium,Total 8.9 mg/dL (8.5-10.1); Chloride 113 mmol/L (98-107); Creatinine, Serum 1.02 mg/dL (0.55-1.02); EST Glomerular Filtration Rate 62 mL/min (>60); Est Glom Filt Rate - Afr Amer 75 mL/min (>60); Globulin 4.2 g/dL (2.2-4.2); Glucose 117 mg/dL (74-106); Protein, Total 7.2 g/dL (6.4-8.2); Sodium Level 143 mmol/L (136-145)
[2023-06-11 10:15] VITALS: BP 114/63; BP 153/66; PULSE 105; RESP 16; O2SAT 98
[2023-06-11 10:20] VITALS: BP 122/77; BP 153/66; PULSE 103; RESP 16; TEMP 37.3; O2SAT 100
[2023-06-11 10:29] VITALS: BP 153/66
== END 2023-06-11 10:46 | disposition home or self-care (01) ==
LOC: SDC 08:43 → AC 08:53
PROVIDERS: PCP Family Medicine; Referring Provider Anesthesiology Pain Medicine; Visit Provider Anesthesiology Pain Medicine
PROC: 3E0U3GC Introduction of Other Therapeutic Substance into Joints, Percutaneous Approach (ICD-10-PCS; CPT 20610; principal; 2023-06-11 10:05)
DX: M70.62 Trochanteric bursitis, left hip (principal); E66.01 Morbid (severe) obesity due to excess calories; Z68.43 Body mass index [BMI] 50.0-59.9, adult; M16.0 Bilateral primary osteoarthritis of hip; Z79.01 Long term (current) use of anticoagulants; Z79.899 Other long term (current) drug therapy
CPT/HCPCS: 20610; 01220; 36416; 76000; 77002; 80053; 83036; 85610; J7120

== ENCOUNTER 2023-07-23 09:01 | Day surgery (SDC) | payer MEDICARE, MEDICAID, SELFPAY ==
[2023-07-23] VITALS (8 sets, daily range): BP systolic 100–137; BP diastolic 51–83; PULSE 97–105; RESP 18; TEMP 36.2–36.7; O2SAT 93–97; BMI 53.0
[2023-07-23] MEDS: Lactated Ringers 1,000 ML 15 ML IV (09:45)
[2023-07-23 09:47] LABS: INR Fingerstick 1.1; Prothrombin Time Fingerstick 12.6 SEC (11.7-14.9)
--- NOTE | 2023-07-23 11:08 | RAD_ITS ---
STUDY: Lumbar Spine, Intraprocedural Exam REASON FOR EXAM: Transforaminal epidural injection. TECHNIQUE: 3 fluoroscopic images of the lumbar spine were obtained on a C-arm for transforaminal epidural injection at the levels of L3-L5. The examination was performed for documentation only. COMPARISON: No relevant prior comparison study available FINDINGS: AP views of the lumbar spine were obtained on a C-arm for ablation. The examination was performed for documentation only. The fluoroscopy time was 11.1 seconds. The radiation dose is 7.03 mGy. RAD/Lumbar Spine 2 or 3 Views IMPRESSION: Intraprocedural exam as described above. Electronically Signed: Chavez Robertson MD at 13:53 EDT ,
[2023-07-23] MEDS: Lidocaine 1% (30 ml sdv) 30 ML Vial (11:15)
[2023-07-23] MEDS: MethylPREDNISolone Acetate 80 MG/ML Vial (11:16)
--- NOTE | 2023-07-23 11:21 | PCM.OPRPT ---
Report of Operation Date of Procedure: 07/23/23 Description of Surgical Findings:: PREOPERATIVE DIAGNOSES: 1. Lumbosacral radiculopathy. 2. Lumbosacral degenerative disk disease. 3. Lumbosacral spinal stenosis. POSTOPERATIVE DIAGNOSES: 1. Lumbosacral radiculopathy. 2. Lumbosacral degenerative disk disease. 3. Lumbosacral spinal stenosis. PROCEDURE PERFORMED: Left-sided lumbar transforaminal epidural steroid injection, L3-4 and L4-5. ANESTHESIA: MAC. BLOOD LOSS: Minimal. COMPLICATIONS: None. DESCRIPTION OF PROCEDURE: History and physical of today was reviewed. Risks and benefits of the procedure were explained. The patient understood and agreed to proceed. Informed consent was obtained. IV inserted per routine protocol. The patient was taken to the operating room and placed in the prone position with a pillow positioned underneath the abdomen. The left side of the lower back was prepped and draped in a sterile fashion using iodine x3. Under fluoroscopy guidance on oblique view, the L3 through L5 vertebral bodies were visualized. The skin and subcutaneous tissue was anesthetized with approximately 5 mL of 1% lidocaine using a 25-gauge regular needle. Under direct visualization with fluoroscopy at approximately 35-degree angle, starting on the left L3, ending on the left L5, using a 22-gauge 5-inch spinal needle, the needle was advanced via the skin. The tip of the needle was maneuvered and directed towards the inferior and medial gutter of the transverse process at the superiormost aspect of the neural foramen. Once the tip of the needle was at the vicinity of the foramen, after negative aspiration for blood or CSF, a total of 1 mL of contrast was injected in divided doses between both levels to confirm correct placement of the needle as well as medial spread. The confirmation was obtained on AP as well as lateral view. After repeated negative aspiration and confirmation on AP as well as lateral view, a total of 6 mL of preservative-free 0.25% Marcaine with 80 mg of Depo-Medrol was injected in divided doses between both levels. The needles were then removed intact. The patient experienced no sign or symptoms of intrathecal or intravascular injection. The patient experienced no paresthesia. The procedure was completed without any apparent difficulty or any complications. The patient appeared to tolerate it well. ASSESSMENT AND PLAN: This is a 48-year-old female with lumbosacral radiculopathy, lumbosacral degenerative disk disease, and lumbosacral spinal stenosis, status post left-sided lumbar transforaminal epidural steroid injection at L3-4 and L4-5. The patient will continue her current medications. The patient will follow up in approximately 2 weeks for reevaluation.
== END 2023-07-23 12:26 | disposition home or self-care (01) ==
LOC: SDC 09:04 → AC 09:05
PROVIDERS: PCP Family Medicine; Referring Provider Anesthesiology Pain Medicine; Visit Provider Anesthesiology Pain Medicine
PROC: 3E0S3BZ Introduction of Anesthetic Agent into Epidural Space, Percutaneous Approach (ICD-10-PCS; CPT 64484; principal; 2023-07-23 10:45)
DX: M51.17 Intervertebral disc disorders with radiculopathy, lumbosacral region (principal); E66.01 Morbid (severe) obesity due to excess calories; Z68.43 Body mass index [BMI] 50.0-59.9, adult; M48.07 Spinal stenosis, lumbosacral region; Z86.711 Personal history of pulmonary embolism; G47.33 Obstructive sleep apnea (adult) (pediatric); M51.37 Other intervertebral disc degeneration, lumbosacral region; M47.27 Other spondylosis with radiculopathy, lumbosacral region; Z79.01 Long term (current) use of anticoagulants; Z79.82 Long term (current) use of aspirin; Z79.899 Other long term (current) drug therapy
CPT/HCPCS: 64484; 01992; 64483; 36416; 72100; 85610; J7120

== ENCOUNTER → 2023-07-25 | Outpatient (CLI) | payer MEDICARE, MEDICAID, SELFPAY | END | disposition home or self-care (01) | LOC: BFHLAB 13:36 → LABSPEC 13:40 | PROVIDERS: PCP Family Medicine; Visit Provider Family Medicine | DX: N39.0 Urinary tract infection, site not specified (principal); R30.0 Dysuria | CPT/HCPCS: 87077; 87086; 87088; 87186 ==

== ENCOUNTER → 2023-08-07 | Outpatient (CLI) | payer MEDICARE, MEDICAID, SELFPAY ==
[2023-08-07 14:25] LABS: Absolute Lymphocyte Count 0.92 X10^3/uL (0.83-4.51); Absolute Neutrophil Count 5.7 X10^3/uL (2.0-7.7); Basophil# 0.03 X10^3/uL; Basophil% 0.4 % (0-1); Eosinophil# 0.11 X10^3/uL; Eosinophils% 1.5 % (0-5); Hematocrit 33.7 % (37-47); Hemoglobin 10.8 g/dL (12.0-15.0); Lymphocyte # 0.92 X10^3/ul (0.83-4.51); Lymphocyte % 12.4 % (19-41); Mean Corpuscular Hgb 28.8 pg (27.0-32.0); Mean Corpuscular Volume 89.9 fL (81-99); Mean Platelet Vol. 10.1 fl (6.2-12.0); Monocyte# 0.56 X10^3/uL; Monocyte% 7.5 % (0-10); NRBC Flagged by Analyzer 0 % (0-5); Neutrophil # 5.74 X10^3/uL (2.7-7.7); Neutrophil % 77.3 % (47-70); Platelet Count 186 K/mm3 (150-450); RBC Distribution Width CV 14.7 % (11.6-14.6); Red Blood Count 3.75 M/mm3 (4.2-5.4); White Blood Count 7.4 K/mm3 (4.4-11.0)
[2023-08-07 14:28] LABS: Erythrocyte Sedimentation Rate 40 mm/hr (0-30)
[2023-08-07 14:53] LABS: Hemoglobin A1c 5.8 % (3.8-5.6)
[2023-08-07 15:15] LABS: Vitamin B12 1036 pg/mL (211-911)
[2023-08-07 15:20] LABS: ALB/GLOB Ratio 0.7 RATIO (0.9-2.4); AST(SGOT) 9 U/L (15-37); Alanine Aminotransfer ALT/SGPT 37 U/L (13-56); Albumin, Serum 2.8 g/dL (3.2-5.0); Alkaline Phosphatase 113 U/L (45-117); Anion Gap 4 (5-15); BUN 22 mg/dL (7-18); Calcium,Total 8.2 mg/dL (8.5-10.1); Chloride 110 mmol/L (98-107); EST Glomerular Filtration Rate 63 mL/min (>60); Est Glom Filt Rate - Afr Amer 76 mL/min (>60); Ferritin 25 ng/mL (8-252); Glucose 111 mg/dL (74-106); Iron 35 ug/dL (50-170); Protein, Total 6.8 g/dL (6.4-8.2); Sodium Level 138 mmol/L (136-145); Thyroid Stim Hormone (TSH) 2.23 uIU/mL (0.358-3.74)
== END | disposition home or self-care (01) ==
LOC: LAB 13:54
PROVIDERS: PCP Family Medicine; Referring Provider Family Medicine; Visit Provider Family Medicine
DX: R53.83 Other fatigue (principal); R06.00 Dyspnea, unspecified; D50.9 Iron deficiency anemia, unspecified; E53.8 Deficiency of other specified B group vitamins; N39.0 Urinary tract infection, site not specified; R73.01 Impaired fasting glucose; Z51.81 Encounter for therapeutic drug level monitoring
CPT/HCPCS: 36415; 80053; 82607; 82728; 83036; 83540; 84443; 85025; 85652; 86140

== ENCOUNTER → 2023-09-03 | Outpatient (CLI) | payer MEDICARE, MEDICAID, SELFPAY ==
[2023-09-03 12:57] LABS: Color, Urine Yellow (Yellow); Glucose, Dipstick Normal (Normal); Ketone-Dipstick 5 mg/dl (Negative); Leukocyte Esterase-Dipstick 100 /ul (Negative); Nitrite-Dipstick Negative (Negative); Occult Blood-Urine 250 /ul (Negative); Protein-Dipstick 30 mg/dl (Negative); Specific Gravity, Urine 1.025 (1.002-1.030); Urine Bilirubin Dipstick Negative (Negative); Urine Clarity Cloudy (Clear); Urine Urobilinogen Normal (Normal)
--- NOTE | 2023-09-03 13:07 | CT_ITS ---
HISTORY: Abdominal pain, right flank pain, low back pain, history of ileostomy and kidney stone. TECHNIQUE: Helically acquired images were obtained of the abdomen and pelvis without oral or IV contrast. A radiation dose optimization technique was used for this scan. 570 images. COMPARISON: CTA 04/27/2022. FINDINGS: LOWER CHEST: Lung bases clear. BOWEL: Bowel nondilated. Right lower quadrant ostomy with Lizbeth pouch. No focal inflammatory change. PERITONEUM: No significant free fluid. LIVER: Enlarged. GALLBLADDER/BILIARY TREE: Small dependent densities. SPLEEN: Mildly lobulated with mild capsular calcification. PANCREAS/ADRENAL GLANDS: Nonenlarged. KIDNEYS AND URETERS: 14 mm right calyceal calculus. 2 mm right lower pole calculi without hydronephrosis. No left nephrolithiasis or hydronephrosis. VESSELS: No abdominal aortic aneurysm. PELVIC ORGANS: Unremarkable. BONES: Degenerative change and mild scoliosis. CT/Abdomen/Pelvis without Cont IMPRESSION: Nonobstructing right renal calculi measuring up to 1.4 cm. Cholelithiasis or biliary sludge. Hepatomegaly. Electronically Signed: Cinthia Ro MD at 14:41 EDT ,
== END | disposition home or self-care (01) ==
LOC: CT 11:44
PROVIDERS: PCP Family Medicine; Referring Provider Family Medicine; Visit Provider Family Medicine
DX: R30.0 Dysuria (principal); R31.9 Hematuria, unspecified; R10.9 Unspecified abdominal pain
CPT/HCPCS: 36415; 74176; 81002; 87086; 87088; 87186

== ENCOUNTER → 2023-09-26 | Outpatient (CLI) | payer MEDICARE, MEDICAID, SELFPAY ==
--- NOTE | 2023-09-26 15:18 | RAD_ITS ---
INDICATION: PAIN EXAMINATION/TECHNIQUE: X-RAY - LEFT XR Knee Complete 4 Views COMPARISON: FINDINGS: SOFT TISSUES: No soft tissue swelling or gas. No radiopaque foreign body. Chondrocalcinosis of menisci. BONES/JOINTS: No acute fracture or subluxation.. Normal alignment. Preservation of the joint space.. No sclerotic or destructive changes observed. RAD/Knee 4 or More Views IMPRESSION: No acute bony injury. Electronically Signed: Rory Ramirez DO at 18:40 EDT ,
== END | disposition home or self-care (01) ==
PROVIDERS: PCP Family Medicine; Referring Provider Clinical Nurse Specialist Adult Health; Visit Provider Clinical Nurse Specialist Adult Health
DX: M25.562 Pain in left knee (principal)
CPT/HCPCS: 73564

== ENCOUNTER 2024-01-07 09:31 | Day surgery (SDC) | payer MEDICARE, MEDICAID, SELFPAY ==
[2024-01-07] VITALS (9 sets, daily range): BP systolic 133–161; BP diastolic 57–84; PULSE 99–111; RESP 16–18; TEMP 36.8–37.4; O2SAT 94–98; BMI 55.5
[2024-01-07 09:43] LABS: INR Fingerstick 1.2; Prothrombin Time Fingerstick 13.2 SEC (11.7-14.9)
[2024-01-07] MEDS: Lactated Ringers 1,000 ML 15 ML IV (10:45)
--- NOTE | 2024-01-07 10:56 | PCM.PRE.AN2 ---
ASA Classification* ASA Classification ASA Classification: 3 Assessment & Plan Anesthesia* Anesthesia Assessment Anesthesia Assessment: Discussed sedation and/or anesthesia options, risks, benefits, and alternatives with patient/parents/legal guardian/POA. Questions invited. The patient/parents/legal guardian/POA seems to understand and agrees to proceed with anesthesia plan. Reviewed the physical assessment, medical history, allergy history and patient home medications list prior to surgery/procedure/anesthetic and documented any changes. Performed airway and anesthesia risk assessments. Anesthesia Type Anesthesia Type: MAC History Source History Obtained from:: Patient and Chart Anesthesia Focused Assessment* Temperature: 98.3 F Pulse Rate: 99 Blood Pressure: 133/78 Respiratory Rate: 18 Pulse Ox: 97 Oxygen Delivery Method: Room Air Airway Assessment Mouth opens: >3 cm Mallampati Score: IV Teeth Condition: Intact Neck Range of motion (ROM): Limited ROM (Somewhat decreased extension) Focused Labs Anesthesia Preop lab: CBC WBC 7.4 K/mm3 (4.4-11.0) 08/07/23 13:58 RBC 3.75 M/mm3 (4.2-5.4) L 08/07/23 13:58 Hgb 10.8 g/dL (12.0-15.0) L 08/07/23 13:58 Hct 33.7 % (37-47) L 08/07/23 13:58 Plt Count 186 K/mm3 (150-450) 08/07/23 13:58 CHEMISTRY Potassium 4.0 mmol/L (3.5-5.1) 08/07/23 13:58 Sodium 138 mmol/L (136-145) 08/07/23 13:58 Magnesium 1.8 mg/dL (1.6-2.6) 04/05/21 14:00 Phosphorus 4.0 mg/dL (2.5-4.9) 12/10/18 05:04 BUN 22 mg/dL (7-18) H 08/07/23 13:58 Creatinine 1.00 mg/dL (0.55-1.02) 08/07/23 13:58 Glucose 111 mg/dL (74-106) H 08/07/23 13:58 POC Glucose 84 mg/dL (70-110) 02/29/20 13:49 TSH 2.23 uIU/mL (0.358-3.74) 08/07/23 13:58 COAG PT 31.0 SECONDS (11.7-14.9) H 05/02/23 15:53 Urine Test Negative Negative 03/22/19 16:46 Lab additional comments: INR this morning was 1.2. Pre-Assessment Diagnosis/Proposed Procedure Planned Operative Procedure(s): Insertion, Spinal Cord Stim,Trial Anesthesia History Anesthesia History - [employer]: Anesthesia History - [employer] [address] Hx Hospitalization No 01/02/24 09:29 Any Problems With Anesthesia Yes: WAKE UP DURING 01/02/24 09:29 Cholinesterase deficiency No 01/02/24 09:29 You/Your Family Experience No 01/02/24 09:29 fever (hyperthermia) with Relationship Recent Exposure to Contagious No 01/07/24 10:42 Disease Does patient have nerve No 01/02/24 09:29 stimulator Patient instructed to have device shut off --Does patient have Pacemaker No 01/07/24 10:42 or ICD? When Was Last Pacemaker Check QUESTION #4 FULL TEXT: You/Your Family Experience fever (hyperthermia) with Anesthesia Last Oral Intake Last Oral intake: Last Oral Intake NPO since 19:00 01/07/24 10:42 Meds taken in AM with sips of Yes 01/07/24 10:42 water? Meds patient instructed to omeprazole, tramadol, 01/07/24 10:42 take am of surgery Lomotil PONV PONV - [employer] [address] [employer] [address]: PONV - [employer] [address] [employer] [address] Female Yes 01/02/24 09:29 HX of Motion Sickness No 01/02/24 09:29 HX of N/V After Surgery No 01/02/24 09:29 Non-Smoker Yes 01/02/24 09:29 Duration of Surgery greater No 01/02/24 09:29 than 60 minutes Number of Risk Factors 2 01/02/24 09:29 PONV Score Moderate Risk 01/02/24 09:29 Height & Weight Height & Weight: Anesthesia: Height & Weight Height 5 ft 7 in 01/07/24 10:42 Weight: 161.025 kg 01/07/24 10:42 Body Mass Index (BMI) 55.5 01/07/24 10:42 Respiratory Assessment Respiratory Assessment - [employer] [address] [employer] [address]: Respiratory Tract Infection Hx - [employer] [address] [employer] [address] Hx Respiratory Tract Infection No 01/02/24 09:29 STOP Sleep Apnea STOP Sleep Apnea - [employer] [address]: STOP Sleep Apnea - [employer] [address] Hx Hypertension No 01/02/24 09:29 Hx Sleep Apnea Yes 01/02/24 09:29 CPAP Yes 01/02/24 09:29 BIPAP No 01/02/24 09:29 Do you snore loudly (louder than talking or can be heard Do you often feel tired/ fatigued/ sleepy during daytime? Has anyone observed you stop breathing during sleep? STOP Results Positive 01/02/24 09:29 QUESTION #5 FULL TEXT : Do you snore loudly (louder than talking or can be heard through closed doors)? 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 Specify any problems Hx of Preganancy in last 3 No 01/02/24 09:29 Months Nurse Filling Out Transfusion VCHRISTIN 01/02/24 09:29 & Questions: Date: 01/02/24 01/02/24 09:29 Time: 09:30 01/02/24 09:29 Patient unable to answer at this time (ie. confused, unrespo /Reproduction History /Reproductive History - [employer]: /Reproductive Hx- [employer] Hx Now No 01/02/24 09:29 Gestational Age (in weeks): EDC: Hx Hx Para Hx Section SAB No 01/02/24 09:29 Active Medications Active Medications: Current Medications Generic Name Dose Route Start Last Admin Trade Name Freq PRN Reason Stop Dose Admin Lactated Ringer's 1,000 mls @ 15 mls/hr 01/07/24 10:45 09/16/24 10:45 IV 15 mls/hr .Q48H EDUARD Administration PFSH Medical History (Updated 03/20/23 @ 00:23 by Background Datorrie) History of pulmonary embolism Chronic acquired lymphedema History of Clostridium difficile infection History of DVT (deep vein thrombosis) Easy bruising Excessive bleeding History of GI bleed History of IBS Gastric reflux Non-smoker CPAP (continuous positive airway pressure) dependence Leg cramps Post-menopausal Wears glasses Depression 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 History of blood transfusion Low iron Restless legs Back pain Sleep apnea Shortness of breath on exertion History of edema Diverticulitis Ileostomy in place Irritable bowel syndrome (IBS) Morbid obesity Pain of left lower extremity Venous insufficiency of both lower extremities Current use of nursing home anticoagulation Home Medications ?Medication ?Instructions ?Recorded ?Last Taken ?Type calcium 600 mg (as 1 tab PO DAILY SUPPLEMENT 12/13/17 07/23/23 History carbonate)-vitamin D3 12.5 mcg (500 unit) capsule ferrous sulfate 325 mg (65 mg 325 mg PO BID anemia 12/13/17 05/11/22 History iron) tablet zinc sulfate 50 mg zinc (220 mg) 220 mg PO QHS SUPPLEMENT 12/13/17 05/11/22 History capsule acetaminophen 500 mg tablet 1,000 mg PO Q6H PRN Pain 12/21/17 04/09/23 History ascorbic acid (vitamin C) 1,000 mg 2 g PO DAILY SUPPLEMENT 12/21/17 05/11/22 History tablet (Vitamin C) ergocalciferol (vitamin D2) 1,250 50,000 unit PO MO supplement 12/21/17 05/08/22 History mcg (50,000 unit) capsule (Vitamin D2) magnesium oxide 400 mg PO QHS SUPPLEMENT 12/21/17 05/11/22 History aspirin 81 mg chewable tablet 2 tab PO DAILY HEART HEALTH 04/22/20 12/30/23 History 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 coagulans)) duloxetine 60 mg capsule,delayed 60 mg PO QHS DEPRESSION 07/08/21 05/11/22 History release sprinkle diphenoxylate-atropine 2.5 2 tab PO 4X/DAY IBS 07/27/21 01/07/24 History mg-0.025 mg tablet (Lomotil) diclofenac sodium 1 % topical gel 2 - 4 g topical UD PAIN 12/05/21 05/11/22 History tramadol 50 mg tablet 50 - 100 mg PO Q6H PRN Pain 03/06/22 01/07/24 History omeprazole 20 mg capsule,delayed 40 mg PO 0500 ACID REFLUX 05/12/22 01/07/24 History release warfarin 2 mg tablet 4 mg PO QHS BLOOD THINNER 05/12/22 12/30/23 History duloxetine 20 mg capsule,delayed 20 mg PO ONCE 12/20/22 Unknown History release carvedilol 3.125 mg tablet 3.125 mg PO QHS 01/02/24 Unknown History cholecalciferol (vitamin D3) 50 4,000 unit PO DAILY 01/02/24 Unknown History mcg (2,000 unit) tablet (Vitamin D3) levofloxacin 500 mg tablet 500 mg PO DAILY 01/02/24 Unknown History oxycodone 5 mg tablet 5 mg PO Q6H 01/02/24 Unknown History Allergy/AdvReac Type Severity Reaction Status Date / Time latex Allergy Rash Verified 01/07/24 10:36 amoxicillin AdvReac Nausea/Vom/ Verified 01/07/24 10:36 Diarrhea cephalexin AdvReac Nausea/Vom/ Verified 01/07/24 10:36 Diarrhea naproxen AdvReac Nausea/Vom/ Verified 01/07/24 10:36 Diarrhea sulfamethoxazole (From AdvReac Nausea/Vom/ Verified 01/07/24 10:36 Bactrim) Diarrhea trimethoprim (From Bactrim) AdvReac Nausea/Vom/ Verified 01/07/24 10:36 Diarrhea Surgical History (Updated 01/02/24 @ 09:28 by Cassy San) History of cystoscopy Hx of surgical procedure History of esophagogastroduodenoscopy (EGD) History of selective injection of anesthetic agent around lumbar nerve root History of colonoscopy Hx of foot surgery History of rectal surgery Ileostomy status H/O colectomy Social History Smoking Status: Never smoker alcohol intake: never substance use type: does not use Review of Systems (Anesthesia) ROS Narrative System reviewed and no additional complaints, except as documented.
[2024-01-07] MEDS: Cefazolin 3 GM in 0.9% Normal Saline (100mL Bag) 100 ML IV (11:32)
--- NOTE | 2024-01-07 11:50 | RAD_ITS ---
INDICATION: INSERTION, SPINAL CORD STIM EXAMINATION/TECHNIQUE: X-RAY - XR Spine Lumbar 2 or 3 Views COMPARISON: None. FINDINGS/ RAD/Lumbar Spine 2 or 3 Views IMPRESSION: Bilateral fluoroscopic images demonstrates a cord stimulator wire overlying T7-T8 with images to be interpreted by the operating physician. Electronically Signed: Moises Harmon DO at 22:13 EDT ,
[2024-01-07] MEDS: Bupivacaine 0.25% 30 ML Vial (12:04)
[2024-01-07] MEDS: Lidocaine 2% (20 ml mdv) 20 ML Vial (12:04)
[2024-01-07] MEDS: Bacitracin 500 UNITS/GM PACKET (12:07)
--- NOTE | 2024-01-07 12:12 | OP.PCM_ITS ---
Report of Operation Date of Procedure: 01/07/24 Description of Surgical Findings:: Pre-Operative Diagnosis: Lumbosacral radiculopathy, lumbosacral degenerative disc disease, lumbosacral spinal stenosis Post-Operative Diagnosis: Lumbosacral radiculopathy, lumbosacral degenerative disc disease, lumbosacral spinal stenosis Surgery/Procedure Performed:: 1. Spinal cord stimulator thoracolumbar leads placement x1, spinal cord stimulator simple programming, intraoperative fluoroscopic interpretation ANESTHESIA: MAC COMPLICATIONS: None BLOOD LOSS: Minimal Implanted device: Spinal cord stimulator lead [id number] lot number [id number] PROCEDURE IN DETAIL: History and physical today was reviewed. Risks and benefits of procedure explained. The patient understood, agreed to procedure, informed consent was obtained. IV inserted per routine protocol. The patient was taken to the operating room, placed in the prone position with a pillow positioned underneath the abdomen. A 3 g of Ancef IV piggyback was infused per anesthesia. The lower back area was prepped and draped in a sterile fashion using iodine x3 Ioban was placed. The C-arm was brought in position for AP view at the L1-2 vertebral bodies under direct visualization fluoroscopy on a true AP view the L1-2 interlaminar space was identified skin and subcutaneous tissue and size approximately 10 cc of a mix of 2% lidocaine and 0.25% Marcaine using a 25-gauge regular needle followed by a 25-gauge 3-1/2 inch spinal needle towards the interlaminar space at L1-2, the skin and subcutaneous tissue were then anesthetized and using an 11-gauge blade was then taken down to the skin and subcutaneous tissue using a 14-gauge 5 inch Touhy needle provided by the Feedback kit the needle was passed through the skin towards the interlaminar space at L1-2 and a paramedian approach the needle was then advanced under direct visualization fluoroscopy towards the interlaminar space at L1-2 [id number] technique was then carried to air towards the interlaminar space at L1-2 once the tip of the needle was in the epidural space and loss of resistance was encountered to air and after confirmation of AP as well as oblique view of the spinal cord stimulator lead was then advanced under direct visualization fluoroscopy to be at the tip of the lead at T8 and the bottom of the lead around mid T10 after confirmation of AP as well as lateral view to confirm correct placement of the lead in the posterior compartment of the epidural space, the lead was connected to the external neurostimulator and patient was then awakened to confirm satisfactory coverage of the painful area once satisfactory coverage, the lead was then secured to the skin with Steri- Strips and a 3-0 silk stitch, hemostasis was then maintained during the procedure the skin was then covered with a Steri-Strips and bacitracin patient was then returned into the supine position in a stable condition and returned to recovery in a stable condition patient experienced no signs or symptoms of intrathecal or intravascular injection patient experienced no paresthesia the procedure was completed without any apparent difficulty any complication the patient appeared to tolerate well, motor as well as sensory function was unchanged from prior to the procedure ASSESSMENT AND PLAN: This is a 48-year-old female with lumbosacral radiculopathy lumbosacral degenerative disc disease lumbosacral spinal stenosis status post Spinal cord stimulator thoracolumbar leads placement x1, spinal cord stimulator simple programming, intraoperative fluoroscopic interpretation, patient will continue her current medications a prescription was provided to the patient Keflex 500 mg 1 p.o. every 8 hours for 7 days postop instruction were given in writing to the patient and her mother as well as verbally and in writing, patient will follow approximately 1 week for reevaluation.
--- NOTE | 2024-01-07 12:19 | PCM.POST.ANE ---
Anesthesia: Postop Eval I Current Vital Signs Temperature: 99.4 F Pulse Rate: 108 Blood Pressure: 137/66 Respiratory Rate: 18 Pulse Ox: 95 Oxygen Delivery Method: Room Air Assessment Airway patent: Yes Spontaneous unlabored respirations: Yes Mental status: Awake and Calm nausea: No Vomiting: No Anesthesia Complication: No Fluid Hydration Crystalloid volume administer (ml): 600 Total IV fluid infused: 600 Progress Note Anesthesia document: Postop Eval 1 completed: Yes
--- NOTE | 2024-01-07 16:22 | POSTOPAN2_ITS ---
Anesthesia Postop Eval I Sum Postop Eval Completion status Anesthesia document: Postop Eval 1 completed: Yes Anesthesia Postop Eval I Summary Anesthesia Postop Eval I Summary: Anesthesia Postop Eval I: Assessment Summary Airway patent Yes 01/07/24 12:20 CONFERENCE SPECIALIST.[email or web address] Spontaneous unlabored Yes 01/07/24 12:20 CONFERENCE SPECIALIST.SADAF respirations Mental status Awake,Calm 01/07/24 12:20 CONFERENCE SPECIALIST.SKOBY nausea No 01/07/24 12:20 CONFERENCE SPECIALIST.SKOBY Vomiting No 01/07/24 12:20 CONFERENCE SPECIALIST.SAHARAOBCandis Anesthesia Postop Eval I: Fluid Summary Crystalloid volume administer 600 01/07/24 12:20 CONFERENCE SPECIALIST.SKOBY (ml) Colloids volume administered ( ml) Blood Product volume administered (ml) Total IV fluid infused 600 01/07/24 12:20 CONFERENCE SPECIALIST.SAHARAOBCandis Anesthesia Postop Eval I: Summary Notes Anesthesia Complication No 01/07/24 12:20 CONFERENCE SPECIALIST.SADAF Anesthesia Complication Comment: Post-operative progress note Anesthesia: Postop Eval II Evaluation Mental status: Awake and Calm Pain Level: 1 nausea: No Vomiting: No Complications Anesthesia Complication: No
--- NOTE | 2024-01-07 16:22 | PCM.POSTANE2 ---
Anesthesia Postop Eval I Sum Postop Eval Completion status Anesthesia document: Postop Eval 1 completed: Yes Anesthesia Postop Eval I Summary Anesthesia Postop Eval I Summary: Anesthesia Postop Eval I: Assessment Summary Airway patent Yes 01/07/24 12:20 BENCH TOOL MAKER.[email or web address] Spontaneous unlabored Yes 01/07/24 12:20 BENCH TOOL MAKER.SADAF respirations Mental status Awake,Calm 01/07/24 12:20 BENCH TOOL MAKER.SKOBY nausea No 01/07/24 12:20 BENCH TOOL MAKER.SKOBY Vomiting No 01/07/24 12:20 BENCH TOOL MAKER.SAHARAOBCandis Anesthesia Postop Eval I: Fluid Summary Crystalloid volume administer 600 01/07/24 12:20 BENCH TOOL MAKER.SKOBY (ml) Colloids volume administered ( ml) Blood Product volume administered (ml) Total IV fluid infused 600 01/07/24 12:20 BENCH TOOL MAKER.SAHARAOBCandis Anesthesia Postop Eval I: Summary Notes Anesthesia Complication No 01/07/24 12:20 BENCH TOOL MAKER.SADAF Anesthesia Complication Comment: Post-operative progress note Anesthesia: Postop Eval II Evaluation Mental status: Awake and Calm Pain Level: 1 nausea: No Vomiting: No Complications Anesthesia Complication: No
== END 2024-01-07 13:48 | disposition home or self-care (01) ==
LOC: SDC 09:33 → AC 09:44
PROVIDERS: PCP Family Medicine; Referring Provider Anesthesiology Pain Medicine; Visit Provider Anesthesiology Pain Medicine
PROC: (CPT 63650; principal; 2024-01-07 10:45)
DX: M51.17 Intervertebral disc disorders with radiculopathy, lumbosacral region (principal); M48.07 Spinal stenosis, lumbosacral region; Z79.82 Long term (current) use of aspirin; Z79.01 Long term (current) use of anticoagulants; Z79.899 Other long term (current) drug therapy
CPT/HCPCS: 63650; 00620; 36416; 72100; 76000; 85610; J7120

== ENCOUNTER 2024-03-10 10:07 | Day surgery (SDC) | payer MEDICARE, MEDICAID, SELFPAY ==
[2024-03-10] VITALS (9 sets, daily range): BP systolic 104–133; BP diastolic 50–71; PULSE 100–104; RESP 16–18; TEMP 36.6–36.9; O2SAT 92–98; BMI 53.8
[2024-03-10 10:18] LABS: INR Fingerstick 1.1; Prothrombin Time Fingerstick 12.9 SEC (11.7-14.9)
--- NOTE | 2024-03-10 10:30 | PRE.ANES_ITS ---
ASA Classification* ASA Classification ASA Classification: 3 Assessment & Plan Anesthesia* Anesthesia Assessment Anesthesia Assessment: Discussed sedation and/or anesthesia options, risks, benefits, and alternatives with patient/parents/legal guardian/POA. Questions invited. The patient/parents/legal guardian/POA seems to understand and agrees to proceed with anesthesia plan. Reviewed the physical assessment, medical history, allergy history and patient home medications list prior to surgery/procedure/anesthetic and documented any changes. Performed airway and anesthesia risk assessments. Anesthesia Type Anesthesia Type: MAC Anesthesia Focused Assessment* Airway Assessment Mouth opens: >3 cm Mallampati Score: II Focused Labs Anesthesia Preop lab: CBC WBC 7.4 K/mm3 (4.4-11.0) 08/07/23 13:58 RBC 3.75 M/mm3 (4.2-5.4) L 08/07/23 13:58 Hgb 10.8 g/dL (12.0-15.0) L 08/07/23 13:58 Hct 33.7 % (37-47) L 08/07/23 13:58 Plt Count 186 K/mm3 (150-450) 08/07/23 13:58 CHEMISTRY Potassium 4.0 mmol/L (3.5-5.1) 08/07/23 13:58 Sodium 138 mmol/L (136-145) 08/07/23 13:58 Magnesium 1.8 mg/dL (1.6-2.6) 04/05/21 14:00 Phosphorus 4.0 mg/dL (2.5-4.9) 12/10/18 05:04 BUN 22 mg/dL (7-18) H 08/07/23 13:58 Creatinine 1.00 mg/dL (0.55-1.02) 08/07/23 13:58 Glucose 111 mg/dL (74-106) H 08/07/23 13:58 POC Glucose 84 mg/dL (70-110) 02/29/20 13:49 TSH 2.23 uIU/mL (0.358-3.74) 08/07/23 13:58 COAG PT 31.0 SECONDS (11.7-14.9) H 05/02/23 15:53 Urine Test Negative Negative 03/22/19 16:46 Pre-Assessment Diagnosis/Proposed Procedure Planned Operative Procedure(s): INSERTION SPINAL CORD STIMULATION Anesthesia History Anesthesia History - insulation professional: Anesthesia History - insulation professional Hx Hospitalization No 03/07/24 10:58 Any Problems With Anesthesia Yes: AWAKENED DURING SURGERY 03/07/24 10:58 Cholinesterase deficiency No 03/07/24 10:58 You/Your Family Experience No 03/07/24 10:58 fever (hyperthermia) with Relationship Recent Exposure to Contagious No 01/07/24 10:42 Disease Does patient have nerve No 03/07/24 10:58 stimulator Patient instructed to have device shut off --Does patient have Pacemaker or ICD? When Was Last Pacemaker Check QUESTION #4 FULL TEXT: You/Your Family Experience fever (hyperthermia) with Anesthesia Last Oral Intake Last Oral intake: Last Oral Intake NPO since Meds taken in AM with sips of water? Meds patient instructed to take am of surgery PONV PONV - insulation professional: PONV - insulation professional Female Yes 03/07/24 10:58 HX of Motion Sickness No 03/07/24 10:58 HX of N/V After Surgery No 03/07/24 10:58 Non-Smoker Yes 03/07/24 10:58 Duration of Surgery greater No 03/07/24 10:58 than 60 minutes Number of Risk Factors 2 03/07/24 10:58 PONV Score Moderate Risk 03/07/24 10:58 Height & Weight Height & Weight: Anesthesia: Height & Weight Height 5 ft 7 in 01/07/24 10:42 Respiratory Assessment Respiratory Assessment - insulation professional: Respiratory Tract Infection Hx - insulation professional Hx Respiratory Tract Infection No 03/07/24 10:58 STOP Sleep Apnea STOP Sleep Apnea - insulation professional: STOP Sleep Apnea - insulation professional Hx Hypertension No 03/07/24 10:58 Hx Sleep Apnea Yes 03/07/24 10:58 CPAP Yes 03/07/24 10:58 BIPAP No 03/07/24 10:58 Do you snore loudly (louder than talking or can be heard Do you often feel tired/ fatigued/ sleepy during daytime? Has anyone observed you stop breathing during sleep? STOP Results Positive 03/07/24 10:58 QUESTION #5 FULL TEXT : Do you snore loudly (louder than talking or can be heard through closed doors)? 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 Specify any problems Hx of Preganancy in last 3 No 03/07/24 10:58 Months Nurse Filling Out Transfusion DSCHRIBER 03/07/24 10:58 & Questions: Date: 03/07/24 03/07/24 10:58 Time: 10:59 03/07/24 10:58 Patient unable to answer at this time (ie. confused, unrespo /Reproduction History /Reproductive History - insulation professional: /Reproductive Hx- insulation professional Hx Now No 03/07/24 10:58 Gestational Age (in weeks): EDC: Hx Hx Para Hx Section SAB No 03/07/24 10:58 PFSH Medical History History of pulmonary embolism Chronic acquired lymphedema History of Clostridium difficile infection History of DVT (deep vein thrombosis) Easy bruising History of GI bleed History of IBS Gastric reflux Non-smoker CPAP (continuous positive airway pressure) dependence Leg cramps Post-menopausal Wears glasses Depression Walker as 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 Low iron Restless legs Back pain Shortness of breath on exertion History of edema Diverticulitis Ileostomy in place Irritable bowel syndrome (IBS) Morbid obesity Pain of left lower extremity Venous insufficiency of both lower extremities Current use of adjunct faculty for medical terminology anticoagulation Home Medications ?Medication ?Instructions ?Recorded ?Last Taken ?Type calcium 600 mg (as 1 tab PO DAILY SUPPLEMENT 12/13/17 07/23/23 History carbonate)-vitamin D3 12.5 mcg (500 unit) capsule ferrous sulfate 325 mg (65 mg 325 mg PO DAILY anemia 12/13/17 05/11/22 History iron) tablet zinc sulfate 50 mg zinc (220 mg) 220 mg PO QHS SUPPLEMENT 12/13/17 05/11/22 History capsule acetaminophen 500 mg tablet 1,000 mg PO Q6H PRN Pain 12/21/17 04/09/23 History ascorbic acid (vitamin C) 1,000 mg 2 g PO DAILY SUPPLEMENT 12/21/17 05/11/22 History tablet (Vitamin C) ergocalciferol (vitamin D2) 1,250 50,000 unit PO MO supplement 12/21/17 05/08/22 History mcg (50,000 unit) capsule (Vitamin D2) magnesium oxide 400 mg PO QHS SUPPLEMENT 12/21/17 05/11/22 History aspirin 81 mg chewable tablet 2 tab PO DAILY HEART HEALTH 04/22/20 03/02/24 History 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 coagulans)) duloxetine 60 mg capsule,delayed 60 mg PO QHS DEPRESSION 07/08/21 05/11/22 Hist ory release sprinkle diphenoxylate-atropine 2.5 2 tab PO 4X/DAY IBS 07/27/21 01/07/24 History mg-0.025 mg tablet (Lomotil) diclofenac sodium 1 % topical gel 2 - 4 g topical UD PRN PAIN 12/05/21 05/11/22 History tramadol 50 mg tablet 50 - 100 mg PO Q6H Pain 03/06/22 01/07/24 History omeprazole 20 mg capsule,delayed 40 mg PO 0500 ACID REFLUX 05/12/22 01/07/24 History release warfarin 2 mg tablet 4 mg PO QHS BLOOD THINNER 05/12/22 03/02/24 History duloxetine 20 mg capsule,delayed 20 mg PO DAILY 12/20/22 Unknown History release carvedilol 3.125 mg tablet 3.125 mg PO QHS 01/02/24 Unknown History oxycodone 5 mg tablet 5 mg PO QHS 01/02/24 Unknown History Allergy/AdvReac Type Severity Reaction Status Date / Time latex Allergy Rash Verified 03/07/24 10:51 amoxicillin AdvReac Nausea/Vom/ Verified 03/07/24 10:51 Diarrhea cephalexin AdvReac Nausea/Vom/ Verified 03/07/24 10:51 Diarrhea naproxen AdvReac Nausea/Vom/ Verified 03/07/24 10:51 Diarrhea sulfamethoxazole (From AdvReac Nausea/Vom/ Verified 03/07/24 10:51 Bactrim) Diarrhea trimethoprim (From Bactrim) AdvReac Nausea/Vom/ Verified 03/07/24 10:51 Diarrhea Surgical History History of cystoscopy Hx of surgical procedure History of esophagogastroduodenoscopy (EGD) History of selective injection of anesthetic agent around lumbar nerve root History of colonoscopy Hx of foot surgery History of rectal surgery H/O colectomy Social History Smoking Status: Never smoker alcohol intake: never substance use type: does not use Review of Systems (Anesthesia) ROS Narrative System reviewed and no additional complaints, except as documented.
[2024-03-10] MEDS: Cefazolin 3 GM in Syringe 1 EACH IV (11:42)
--- NOTE | 2024-03-10 11:49 | RAD_ITS ---
PROCEDURE: Spinal cord stimulator insertion DATE OF EXAMINATION: 03/10/2024 INDICATION: Female, 48 years old. Chronic low back pain. FLUOROSCOPY TIME (if supplied): (191 seconds. Number of fluoroscopic images: 9 images were submitted for documentation only. Radiation dose: 175.9 mGy. RAD/Lumbar Spine 2 or 3 Views IMPRESSION: Intraprocedural exam as described above. Electronically Signed: Chavez Robertson MD at 14:04 EST ,
[2024-03-10] MEDS: Bupivacaine 0.25% 30 ML Vial (12:58)
[2024-03-10] MEDS: Lidocaine 2% (20 ml mdv) 20 ML Vial (12:58)
[2024-03-10] MEDS: Bacitracin 500 UNITS/GM PACKET (12:59)
--- NOTE | 2024-03-10 13:04 | OP.PCM_ITS ---
Operative Report (Standard) Operative Information Surgery/Procedure Performed: 1. Spinal cord stimulator thoracolumbar leads placement x2 #2 spinal cord stimulator Medtronic intellis generator placement #3 spinal cord stimulator generator pocket creation at the right gluteal region #4 spinal cord stimulator simple programming, 5-intraoperative fluoroscopic interpretation Surgeon: Moises Armenta Date of Procedure: 03/10/24 Procedure Start Time: 13:05 Procedure Stop Time: 13:05 Pre-Operative Diagnosis: Lumbosacral radiculopathy, lumbosacral degenerative disc disease, lumbosacral spinal stenosis Post-Operative Diagnosis: Lumbosacral radiculopathy, lumbosacral degenerative disc disease, lumbosacral spinal stenosis Select all DRAINS/GRAFTS/IMPLANTS that apply: None Type of Anesthesia: Local MAC and MAC Estimated Blood Loss: < 25 cc Specimen collected: No Description of surgery: Implanted device: Spinal cord stimulator lead [id number] lot number [id number], lead #2 [id number] lot number [id number] Medtronic spinal cord stimulator generator intellIs serial number [id number] PROCEDURE IN DETAIL: History and physical today was reviewed. Risks and benefits of procedure explained. The patient understood, agreed to procedure, informed consent was obtained. IV inserted per routine protocol. The patient was taken to the operating room, placed in the prone position with a pillow positioned underneath the abdomen. A 3 g of Ancef IV piggyback was infused per anesthesia. The lower back and right gluteal area was prepped and draped in a sterile fashion using iodine x3 Ioban was placed. The C-arm was brought in position for AP view at the L2-3 vertebral bodies under direct visualization fluoroscopy on a true AP view the L2-3 interlaminar space was identified skin and subcutaneous tissue and size approximately 10 cc of a mix of 2% lidocaine and 0.25% Marcaine using a 25-gauge regular needle followed by a 25-gauge 3-1/2 inch spinal needle towards the interlaminar space at L2-3, the skin and subcutaneous tissue were then anesthetized and using an 11-gauge blade was then taken down to the skin and subcutaneous tissue using a 14-gauge 5 inch Touhy needle provided by the [employer] kit the needle was passed through the skin towards the interlaminar space at L2-3 and a left paramedian approach the needle was then advanced under direct visualization fluoroscopy towards the interlaminar space at L2-3 [id number] technique was then carried to air towards the interlaminar space at L2-3 once the tip of the needle was in the epidural space and loss of resistance was encountered to air and after confirmation of AP as well as oblique view of the spinal cord stimulator lead was then advanced under direct visualization fluoroscopy to be at the tip of the lead at top of T8 and the bottom of the lead around mid T10 after confirmation of AP as well as lateral view to confirm correct placement of the lead in the posterior compartment of the epidural space the previous procedure was then repeated to a level above with left-sided paramedian approach at L1-2 interlaminar space the second lead was then inserted under direct visualization with fluoroscopy to be at the top of T8 and mid T10 area the leads were were then connected to the external neurostimulator and patient was then awakened to confirm satisfactory coverage of the painful area once satisfactory coverage was then achieved the stylette of each needle was then removed and the skin and subcutaneous tissue on to the left of the paramedian needles was then taken anesthetized with a total of 10 cc of the previous mixture of 0.25% Marcaine and 2% lidocaine using a 25-gauge regular needle, using a 15-gauge blade and approximately 6 cm vertical incision was made, the incision was then taken down through the skin and subcutaneous tissue towards the fascia making sure hemostasis was then maintained via cautery, the spinal cord stimulator leads were then passed through the above incision and secured using the bumpy anchor and sutured down with a 2-0 silk to the fascia at that level the spinal cord stimulator leads were then tunneled via a tunneler provided by the [employer] kit towards the previously incised spinal cord stimulator battery at the right gluteal region skin and subcutaneous tissue were anesthetized with approximately 10 cc of a mix of 2% lidocaine and 0.25% Marcaine using a 25 gauge regular needle, skin and subcutaneous tissue was then taken down with the 15-gauge blade and a horizontal approximately 6 cm incision was taken down, hemostasis was maintained with Bovie and direct pressure the incision was then taken down to the fascia and the battery was then secured with the 2-0 silk sutures that were the spinal cord stimulator leads the upper lead was then marked the new until spinal cord stimulator battery was then provided Via Troppin the battery was then reattached of the spinal cord stimulator make ensure that the top lead is attached to the top position from 0-7 electrodes and the bottom from 8-15 electrodes once impedance was then checked to be in the proper average number the intellus battery was then inserted into the pocket and impedance with when checked again the pocket was then inspected to confirm hemostasis in place, the intellIs battery was then secured to the fascia using a 2-0 silk to the upper eyes of the battery confirming an upward writing of the intellIs facing posterior, the battery was then inserted into an antimicrobial tYRex pouch once complete confirmation the battery was then placed in the position and the the mid paramedian and the gluteal incisions were then closed primarily through a and interrupted 0 Vicryl, followed by 3-0 Vicryl in a running fashion followed by a 4-0 Monocryl to the skin, hemostasis was then maintained during the procedure the skin was then covered with a Steri-Strips and bacitracin patient was then returned into the supine position in a stable condition and returned to recovery in a stable condition patient experienced no signs or symptoms of intrathecal or intravascular injection patient experienced no paresthesia the procedure was completed without any apparent difficulty any complication the patient appeared to tolerate well, motor as well as sensory function was unchanged from prior to the procedure ESTIMATED BLOOD LOSS: Minimal less than 25 mL ASSESSMENT AND PLAN: This is a 48-year-old female with lumbosacral radiculopathy lumbosacral degenerative disc disease lumbosacral spinal stenosis status post 1. Spinal cord stimulator thoracolumbar leads placement x2 #2 spinal cord stimulator Medtronic intellus generator placement #3 spinal cord stimulator generator pocket creation at the right gluteal region #4 spinal cord stimulator simple programming, 5-intraoperative fluoroscopic interpretation patient will continue her current medications a prescription was provided to the patient Keflex 500 mg 1 p.o. every 8 hours for 7 days postop instruction were given in writing to the patient and her mother as well as verbally and in writing, patient will follow approximately 1 week for reevaluation. 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
--- NOTE | 2024-03-10 13:32 | PCM.POST.ANE ---
Anesthesia: Postop Eval I Current Vital Signs Temperature: 98.4 F Pulse Rate: 104 Blood Pressure: 112/50 Respiratory Rate: 18 Pulse Ox: 94 Assessment Airway patent: Yes Spontaneous unlabored respirations: Yes nausea: No Vomiting: No Anesthesia Complication: No Fluid Hydration Crystalloid volume administer (ml): 0 Total IV fluid infused: 0 Progress Note Anesthesia document: Postop Eval 1 completed: Yes
--- NOTE | 2024-03-10 13:49 | POSTOPAN2_ITS ---
Anesthesia Postop Eval I Sum Postop Eval Completion status Anesthesia document: Postop Eval 1 completed: Yes Anesthesia Postop Eval I Summary Anesthesia Postop Eval I Summary: Anesthesia Postop Eval I: Assessment Summary Airway patent Yes 03/10/24 13:32 INCIDENT RESPONSE MANAGER.CSIR Spontaneous unlabored Yes 03/10/24 13:32 INCIDENT RESPONSE MANAGER.CSIR respirations Mental status nausea No 03/10/24 13:32 INCIDENT RESPONSE MANAGER.CSIR Vomiting No 03/10/24 13:32 INCIDENT RESPONSE MANAGER.CSIR Anesthesia Postop Eval I: Fluid Summary Crystalloid volume administer 0 03/10/24 13:32 INCIDENT RESPONSE MANAGER.CSIR (ml) Colloids volume administered ( ml) Blood Product volume administered (ml) Total IV fluid infused 0 03/10/24 13:32 INCIDENT RESPONSE MANAGER.CSIR Anesthesia Postop Eval I: Summary Notes Anesthesia Complication No 03/10/24 13:32 INCIDENT RESPONSE MANAGER.CSIR Anesthesia Complication Comment: Post-operative progress note Anesthesia: Postop Eval II Evaluation Mental status: Awake Pain Level: 0 nausea: No Vomiting: No
--- NOTE | 2024-03-10 13:49 | PCM.POSTANE2 ---
Anesthesia Postop Eval I Sum Postop Eval Completion status Anesthesia document: Postop Eval 1 completed: Yes Anesthesia Postop Eval I Summary Anesthesia Postop Eval I Summary: Anesthesia Postop Eval I: Assessment Summary Airway patent Yes 03/10/24 13:32 ACCOUNTS PAYABLE ACCOUNTANT.CSIR Spontaneous unlabored Yes 03/10/24 13:32 ACCOUNTS PAYABLE ACCOUNTANT.CSIR respirations Mental status nausea No 03/10/24 13:32 ACCOUNTS PAYABLE ACCOUNTANT.CSIR Vomiting No 03/10/24 13:32 ACCOUNTS PAYABLE ACCOUNTANT.CSIR Anesthesia Postop Eval I: Fluid Summary Crystalloid volume administer 0 03/10/24 13:32 ACCOUNTS PAYABLE ACCOUNTANT.CSIR (ml) Colloids volume administered ( ml) Blood Product volume administered (ml) Total IV fluid infused 0 03/10/24 13:32 ACCOUNTS PAYABLE ACCOUNTANT.CSIR Anesthesia Postop Eval I: Summary Notes Anesthesia Complication No 03/10/24 13:32 ACCOUNTS PAYABLE ACCOUNTANT.CSIR Anesthesia Complication Comment: Post-operative progress note Anesthesia: Postop Eval II Evaluation Mental status: Awake Pain Level: 0 nausea: No Vomiting: No
[2024-03-10] MEDS: oxyCODONE 5 MG Tablet PO (14:36)
== END 2024-03-10 15:24 | disposition home or self-care (01) ==
LOC: SDC 10:08 → AC 10:23
PROVIDERS: PCP Family Medicine; Referring Provider Anesthesiology Pain Medicine; Visit Provider Anesthesiology Pain Medicine
PROC: (CPT 63685; principal; 2024-03-10 11:45)
DX: Z45.42 Encounter for adjustment and management of neurostimulator (principal); M48.07 Spinal stenosis, lumbosacral region; M51.17 Intervertebral disc disorders with radiculopathy, lumbosacral region; Z79.82 Long term (current) use of aspirin; Z79.01 Long term (current) use of anticoagulants; Z79.899 Other long term (current) drug therapy
CPT/HCPCS: 63685; 63650 ×2; 95971; 00300; 36416; 72100; 76000; 85610; C1778; C1820; A4216; J2405

== ENCOUNTER → 2024-07-23 | Outpatient (CLI) | payer MEDICARE, MEDICAID, SELFPAY | END | disposition home or self-care (01) | LOC: BFHLAB 16:09 → LABSPEC 16:11 | PROVIDERS: PCP Family Medicine; Visit Provider Family Medicine | DX: R30.0 Dysuria (principal) | CPT/HCPCS: 87077; 87086; 87088; 87186 ==

== ENCOUNTER 2024-12-12 08:51 | Outpatient (RCR) | payer MEDICARE, MEDICAID, SELFPAY ==
[2024-12-12 09:26] VITALS: BP 123/72; PULSE 106; RESP 18; TEMP 35.5
--- NOTE | 2024-12-12 11:27 | WC ---
PHOTO-LEFT BUTTOCK 12/12/24
--- NOTE | 2024-12-12 11:27 | WC ---
PHOTO-LEFT BUTTOCK 12/12/24
--- NOTE | 2024-12-12 11:28 | WC ---
PHOTO-RIGHT BUTTOCK 12/12/24
--- NOTE | 2024-12-12 11:28 | WC ---
PHOTO-RIGHT BUTTOCK 12/12/24
--- NOTE | 2024-12-12 15:08 | PCM.WC.HP ---
History of Present Illness Date of Service: 12/12/24 Chief Complaint: left buttock ulcer/fistula History of Wound: This is a 49-year-old morbidly obese female who presents today for treatment of a nonhealing ulcer of her left buttock. She underwent surgical treatment 2 weeks ago for a kidney stone and when they were transferring her to OR table they noted a large amount of bloody purulent drainage expressed from her buttock area and advised her to seek wound care treatment. She has been very immobile for the last 2 years due to hip and back pain. She has been treated for this area previously and it had healed. The area is at the site of an external fistula opening that had been present due to chronic colitis. She is on chronic anticoagulation with warfarin and is obese. REPLACED BY [facility] Medical History Kidney stone Spinal cord stimulator status Multiple drug resistant organism (MDRO) culture positive History of pulmonary embolism Chronic acquired lymphedema History of Clostridium difficile infection History of DVT (deep vein thrombosis) Easy bruising History of GI bleed History of IBS Gastric reflux Non-smoker CPAP (continuous positive airway pressure) dependence Leg cramps Post-menopausal Wears glasses Depression Walker as 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 Low iron Restless legs Back pain Shortness of breath on exertion History of edema Diverticulitis Ileostomy in place Irritable bowel syndrome (IBS) Morbid obesity Pain of left lower extremity Venous insufficiency of both lower extremities 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 Home Medications ?Medication ?Instructions ?Recorded ?Last Taken ?Type calcium 600 mg (as 1 tab PO BID SUPPLEMENT 12/13/17 07/23/23 History carbonate)-vitamin D3 12.5 mcg (500 unit) capsule ferrous sulfate 325 mg (65 mg 325 mg PO DAILY anemia 12/13/17 05/11/22 History iron) tablet zinc sulfate 50 mg zinc (220 mg) 220 mg PO QHS SUPPLEMENT 12/13/17 05/11/22 History capsule acetaminophen 500 mg tablet 1,000 mg PO Q6H PRN Pain 12/21/17 04/09/23 History ascorbic acid (vitamin C) 1,000 mg 3 g PO DAILY SUPPLEMENT 12/21/17 05/11/22 History tablet (Vitamin C) ergocalciferol (vitamin D2) 1,250 50,000 unit PO MO supplement 12/21/17 05/08/22 History mcg (50,000 unit) capsule (Vitamin D2) magnesium oxide 400 mg PO QHS SUPPLEMENT 12/21/17 05/11/22 History aspirin 81 mg chewable tablet 2 tab PO DAILY HEART HEALTH 04/22/20 03/02/24 History duloxetine 60 mg capsule,delayed 60 mg PO QHS DEPRESSION 07/08/21 05/11/22 History release sprinkle diphenoxylate-atropine 2.5 2 tab PO 4X/DAY IBS 07/27/21 01/07/24 History mg-0.025 mg tablet (Lomotil) diclofenac sodium 1 % topical gel 2 - 4 g topical UD PRN PAIN 12/05/21 05/11/22 History tramadol 50 mg tablet 50 - 100 mg PO Q6H PRN Pain 03/06/22 03/10/24 History omeprazole 20 mg capsule,delayed 40 mg PO 0500 ACID REFLUX 05/12/22 03/10/24 06:00 History release warfarin 2 mg tablet 4 mg PO QHS BLOOD THINNER 05/12/22 03/02/24 History duloxetine 20 mg capsule,delayed 20 mg PO DAILY 12/20/22 Unknown History release carvedilol 3.125 mg tablet 3.125 mg PO .1200, 0000 01/02/24 Unknown History oxycodone 5 mg tablet 5 mg PO QHS 01/02/24 Unknown History 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 coagulans)) melatonin 10 mg capsule 10 mg PO QHS 10/13/24 Unknown History Allergy/AdvReac Type Severity Reaction Status Date / Time latex Allergy Rash Verified 10/13/24 13:24 amoxicillin AdvReac Nausea/Vom/ Verified 10/13/24 13:24 Diarrhea naproxen AdvReac Nausea/Vom/ Verified 10/13/24 13:24 Diarrhea sulfamethoxazole (From AdvReac Nausea/Vom/ Verified 10/13/24 13:24 Bactrim) Diarrhea trimethoprim (From Bactrim) AdvReac Nausea/Vom/ Verified 10/13/24 13:24 Diarrhea Surgical History History of cystoscopy Hx of surgical procedure History of esophagogastroduodenoscopy (EGD) History of selective injection of anesthetic agent around lumbar nerve root History of colonoscopy Hx of foot surgery History of rectal surgery H/O colectomy Social History Smoking Status: Never smoker alcohol intake: never substance use type: does not use ROS Constitutional Constitutional: Denies chills, fatigue or fever(s) Eyes Eyes: Denies blurry vision, change in vision or loss of vision ENT HEENT: Denies dysphagia, hearing loss or sore throat Cardiovascular Cardiovascular: Denies chest pain, edema or palpitations Respiratory/Chest Respiratory/Chest: Denies dry cough, dyspnea, dyspnea on exertion, productive cough or wheezing Gastrointestinal Gastrointestinal: Denies diarrhea, nausea or vomiting Genitourinary Genitourinary: Denies dysuria or polyuria Musculoskeletal Musculoskeletal: Denies arthralgias, joint stiffness or muscle weakness Integumentary Integumentary: Reports erythema and wounds Neurologic Neurologic: Denies dizziness, memory loss or weakness Psychiatric Psychiatric: Denies homicidal ideation or suicidal ideation Endocrine Endocrinology: Denies polydipsia, polyphagia or polyuria Hematologic/Lymphatic Hematologic/Lymphatic: Denies easy bleeding or easy bruising Allergic/Immunologic Allergic/Immunologic: Denies throat swelling, tongue swelling or urticaria Vital Signs Vital Signs Vital Signs: 12/12/24 09:26 Temperature 96 F L Temperature Source Temporal Pulse Rate 106 H Respiratory Rate 18 Blood Pressure 123/72 H Blood Pressure Mean 89 Blood Pressure Source Monitor Blood Pressure Position Semi-Fowlers Blood Pressure Location Right Arm Physical Exam Const alert, oriented x3 and no apparent distress Nutritional Appearance: morbidly obese HEENT normocephalic and head/scalp atraumatic Resp normal respiratory effort Effort and Inspection: able to speak in complete sentences Cardio regular rate and regular rhythm Extremity General Extremity: edema bilateral lower extremity Details: moderate Skin General Skin Exam: erythema Wounds: wounds noted Wound Narrative: as in clinical panel Neuro oriented x3 and moves all extremities Debridement Note Debridement Note Wound debrided: left buttock/gluteal cleft fistula site Laterality: Left No debridement was completed: No debridement was completed today Post-Debridement Measurements and Additional Note: Post-Debridement Measurements/Treatment CIARRA - Nurse 1 - General Ulcer Assessment Start: 12/12/24 09:26 Freq: Status: Active Protocol: NILTON Activity Type Activity Date Activity User E-sign Co-sign Detail Recorded Client Recorded Date Recorded By Document 12/12/24 09:26 DL [id number] 12/12/24 09:41 RB 12/12/24 09:26 WC - Today's Visit Information Type of service Follow-up Visit (Physician/AGITATOR OPERATOR ) Arrival Mode Wheelchair Transfer Assistance Manual Patient Identification Verified (Name & Yes ) Patient Requires Transmission-Based No Precautions Vital Signs Temperature (97.8 F-99.1 F) 96 F L Temperature Source Temporal Pulse Rate (60-100) 106 H Pulse Location Monitor Respiratory Rate (12-18) 18 Respiratory rate source Observation Blood Pressure (90/60-120/80) 123/72 H Blood Pressure Mean 89 Source Monitor Position Semi-Fowlers Blood Pressure Location Right Arm History Since Last Visit- (Skip if this is Patient's initial visit) Have you changed medications since your No last visit? Any new allergies or adverse reactions No Had a fall/change in ADL's that may No increase risk of falls Signs or symptoms of abuse and/or No neglect since last visit Have you been in the hospital since your No last visit? Has dressing in place as prescribed Yes Has compression in place as prescribed No Has offloadiing in place as prescribed No Experienced any changes in pain level or No management Pain Scale: 0-10 Numeric Is Patient Pain Free? No BUTTOCK -Description Aching -Intensity 5 -Duration (hours) Acute -Pain Behavior Guarding -Pain Aggravating Factors Changing Position, Exercise/ Activity -Alleviating Factors/Interventions Medication -Effectiveness of Alleviating Factor/ Minimally Intervention effective Communication Assessment Preferred language [place] Executive Officer Special Warfare Team Required No Able to Read Yes Able to Write Yes Communication Tools None Right Hearing Abillity Normal Left Hearing Abillity Normal Visual Assistive Devices Glasses Teaching Assessment Preferences Verbal,Written, Audio/Visual, Demonstration Barriers to Learning Low Literacy Readiness To Learn Good Willingness to Engage in Self Management Med Activies Readiness to Engage in Self Management Med Activities Anxiety Level Anxious Cooperation Cooperative Perception Coherent Interest in Health Problem Asks Questions Education Importance Acknowledges Need Does Patient Smoke tobacco or other No substances Smoking Status Never smoker Is Patient Diabetic No Functional Assessment Recent Decline in Ability to Perform Ambulation, Bathing,Lower Body Dressing Assistive Device With Patient WHEELCHAIR Culture/Catholic/Cloth Spreader Screen Printing Cultural/Catholic Needs that may affect No Treatment Plan Would you allow our hospital physician interventional cardiologist to No meet you for the purpose of spiritual/ emotional support? Cloth Spreader Screen Printing to contact place of holiness No WC - Nurse 1 - General Ulcer Measurement Start: 12/12/24 09:26 Freq: Status: Active Protocol: Activity Type Activity Date Activity User E-sign Co-sign Detail Recorded Client Recorded Date Recorded By Document 12/12/24 09:26 RB [id number] 12/12/24 09:41 RB 12/12/24 09:26 Wound Center Nurse 1 21. R BUTTOCK -Combined with other wound No -Current Size (cm) - Length 0.1 -Current Size (cm) - Width 0.1 -Current Size (cm) - Depth 0.1 -Total Square Cm 0.01 -Photo Taken Yes -Tunneling No -Undermining/Tunneling No -Circular Undermining No -Exudate Amt Large -Exudate Type Serosanguineous -Wound Margin Distinct, Outline Attached -Granulation Amt Medium (34-66%) -Granulation Quality [place] -Slough/Fibrin Yes -Necrosis Amt Medium (34-66%) -Necrotic Tissue Type Adherent Slough -Structure Exposed N/A -Texture (Meg-wound Skin Appearance) Assessed, Excoriation -Moisture (Meg-wound Skin Appearance) Assessed -Color (Meg-wound Skin Appearance) Assessed -Temperature (Meg-wound Skin No Abnormality Appearance) (Pt Warm) -Tenderness on Palpation (Meg-wound No Skin Appearance) -Ulcer Cleansing Wound Cleanser -Foul Odor after Cleansing Yes -Anesthetic Used 5% Lidocaine Gel 20. L BUTTOCK -Combined with other wound No -Current Size (cm) - Length 0.1 -Current Size (cm) - Width 0.1 -Current Size (cm) - Depth 0.1 -Total Square Cm 0.01 -Photo Taken Yes -Tunneling No -Undermining/Tunneling No -Circular Undermining No -Exudate Amt Large -Exudate Type Serosanguineous -Wound Margin Distinct, Outline Attached -Granulation Amt Medium (34-66%) -Granulation Quality [place] -Slough/Fibrin Yes -Necrosis Amt Medium (34-66%) -Necrotic Tissue Type Adherent Slough -Structure Exposed N/A -Texture (Meg-wound Skin Appearance) Assessed, Excoriation -Color (Meg-wound Skin Appearance) Assessed -Temperature (Meg-wound Skin No Abnormality Appearance) (Pt Warm) -Tenderness on Palpation (Meg-wound No Skin Appearance) -Ulcer Cleansing Wound Cleanser -Foul Odor after Cleansing Yes -Anesthetic Used 5% Lidocaine Gel - Nurse 2 - General Ulcer CM Notes Start: 12/12/24 09:26 Freq: Status: Active Protocol: Activity Type Activity Date Activity User E-sign Co-sign Detail Recorded Client Recorded Date Recorded By Document 12/12/24 09:57 [id number] 12/12/24 10:10 12/12/24 09:57 Wound Center Nurse 2 #22 L INNER BUTTOCK FISTULA -Time 10:09 -Correct Patient Yes -Correct Side, Site, Position Yes -Correct Procedure No -Procedure Performed No -Post Debridement (cm) - Depth 3.8 -Tunneling No -Undermining/Tunneling No -Circular Undermining No -Wound/Ulcer Outcome Not Healed -Ulcer Cleansing Not Cleansed -Foul Odor after Cleansing No -Bioengineered Tissue No -Offloading No 21. R BUTTOCK -Time 09:57 -Correct Patient Yes -Correct Side, Site, Position Yes -Correct Procedure No -Procedure Performed No -Wound/Ulcer Outcome Not Healed -Bleeding Controlled with NA -Assistive Device(s) Walker 20. L BUTTOCK -Time 10:07 -Correct Patient Yes -Correct Side, Site, Position Yes -Correct Procedure No -Procedure Performed No -Tunneling No -Undermining/Tunneling No -Circular Undermining No -Wound/Ulcer Outcome Not Healed -Foul Odor after Cleansing No -Bioengineered Tissue No -Bleeding Controlled with NA Pain Scale: 0-10 Numeric Is Patient Pain Free? Yes - Nurse 3 - General Ulcer D/C NN Start: 12/12/24 09:26 Freq: Status: Active Protocol: Activity Type Activity Date Activity User E-sign Co-sign Detail Recorded Client Recorded Date Recorded By Document 12/12/24 10:32 [facility] [id number] 12/12/24 10:34 [facility] 12/12/24 10:32 Wound Care Center Nurse 3 #22 L INNER BUTTOCK FISTULA -Other Dressing LOTION PER KW BROACHING MACHINE SET UP OPERATOR 21. R BUTTOCK -Other Dressing LOTION PER KW 20. L BUTTOCK -Other Dressing LOTION PER KW BROACHING MACHINE SET UP OPERATOR Treatment Response Procedure Tolerated Well Pain Scale: 0-10 Numeric Is Patient Pain Free? Yes WC - Visit Discharge Discharge Condition Stable Ambulatory Status Wheelchair Transportation Private Auto Accompanied by MOM Additional Wound Wound debrided: right buttock Laterality: Right Wound Grade/Stage: Stage 1 Operative Diagnosis: no debridement necessary Additional Wound Wound debrided: left buttock Laterality: Left Wound Grade/Stage: Stage 1 Operative Diagnosis: No debridement necessary Assessment/Plan Assessment/Plan (1) Facet arthritis of lumbosacral region: CODE(S): M47.817 - Spondylosis without myelopathy or radiculopathy, lumbosacral region (2) Morbid obesity: CODE(S): E66.01 - Morbid (severe) obesity due to excess calories (3) Bilateral hip joint arthritis: CODE(S): M16.0 - Bilateral primary osteoarthritis of hip (4) DDD (degenerative disc disease), lumbosacral: CODE(S): M51.37 - Other intervertebral disc degeneration, lumbosacral region QUALIFIERS: Disc-related pain type: discogenic back pain and lower extremity pain Qualified Code(s): M51.372 - Other intervertebral disc degeneration, lumbosacral region with discogenic back pain and lower extremity pain (5) Decubitus ulcer of left buttock, stage 2: CODE(S): L89.322 - Pressure ulcer of left buttock, stage 2 (6) Ileostomy in place: CODE(S): Z93.2 - Ileostomy status (7) Walking difficulty due to ankle and foot: CODE(S): R26.2 - Difficulty in walking, not elsewhere classified (8) Physical deconditioning: CODE(S): R53.81 - Other malaise PLAN: Plan Evaluation performed today in clinic as annotated above. Melanie's mother present during visit as well. Packing the ulcer/fistula with Promogran before was effective but Melanie's mobility is severely diminished and this is not possible in her current home environment. We discussed possible admission to SNF or Rehab for treatment of her ulcer and PT to strengthen. At home wound-care instructions: The patient will wash with antibacterial soap and water and will apply Calmoseptine or Pinqsalve to buttock area and importance of offloading was stressed to her. Keep dressing clean and dry. Off-loading: The patient was instructed to avoid pressure and friction on the affected areas. Reposition every 2 hours at minimum. Avoid prolonged standing and/or dangling of legs. When seated, feet should be elevated at chest level. Frequent ambulation is encouraged. Diet: Patient encouraged to increase protein intake while taking caution to avoid high carbohydrate and/or sugar intake. Labs/cultures/imaging: Follow-up: Return in 1 month for wound care follow up. Return sooner or report to the emergency room should symptoms worsen, or new symptoms arise. Note: [employer] speech recognition sterile process coordinator software was used to create portions of this document. Sound-alike and misspelled words, as well as other sterile process coordinator errors may be contained in the documentation.
--- NOTE | 2024-12-12 15:08 | PCM.WC.HP ---
History of Present Illness Date of Service: 12/12/24 Chief Complaint: left buttock ulcer/fistula History of Wound: This is a 49-year-old morbidly obese female who presents today for treatment of a nonhealing ulcer of her left buttock. She underwent surgical treatment 2 weeks ago for a kidney stone and when they were transferring her to OR table they noted a large amount of bloody purulent drainage expressed from her buttock area and advised her to seek wound care treatment. She has been very immobile for the last 2 years due to hip and back pain. She has been treated for this area previously and it had healed. The area is at the site of an external fistula opening that had been present due to chronic colitis. She is on chronic anticoagulation with warfarin and is obese. [facility] Medical History Kidney stone Spinal cord stimulator status Multiple drug resistant organism (MDRO) culture positive History of pulmonary embolism Chronic acquired lymphedema History of Clostridium difficile infection History of DVT (deep vein thrombosis) Easy bruising History of GI bleed History of IBS Gastric reflux Non-smoker CPAP (continuous positive airway pressure) dependence Leg cramps Post-menopausal Wears glasses Depression Walker as 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 Low iron Restless legs Back pain Shortness of breath on exertion History of edema Diverticulitis Ileostomy in place Irritable bowel syndrome (IBS) Morbid obesity Pain of left lower extremity Venous insufficiency of both lower extremities 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 use of transmission supervisor anticoagulation Home Medications ?Medication ?Instructions ?Recorded ?Last Taken ?Type calcium 600 mg (as 1 tab PO BID SUPPLEMENT 12/13/17 07/23/23 History carbonate)-vitamin D3 12.5 mcg (500 unit) capsule ferrous sulfate 325 mg (65 mg 325 mg PO DAILY anemia 12/13/17 05/11/22 History iron) tablet zinc sulfate 50 mg zinc (220 mg) 220 mg PO QHS SUPPLEMENT 12/13/17 05/11/22 History capsule acetaminophen 500 mg tablet 1,000 mg PO Q6H PRN Pain 12/21/17 04/09/23 History ascorbic acid (vitamin C) 1,000 mg 3 g PO DAILY SUPPLEMENT 12/21/17 05/11/22 History tablet (Vitamin C) ergocalciferol (vitamin D2) 1,250 50,000 unit PO MO supplement 12/21/17 05/08/22 History mcg (50,000 unit) capsule (Vitamin D2) magnesium oxide 400 mg PO QHS SUPPLEMENT 12/21/17 05/11/22 History aspirin 81 mg chewable tablet 2 tab PO DAILY HEART HEALTH 04/22/20 03/02/24 History duloxetine 60 mg capsule,delayed 60 mg PO QHS DEPRESSION 07/08/21 05/11/22 History release sprinkle diphenoxylate-atropine 2.5 2 tab PO 4X/DAY IBS 07/27/21 01/07/24 History mg-0.025 mg tablet (Lomotil) diclofenac sodium 1 % topical gel 2 - 4 g topical UD PRN PAIN 12/05/21 05/11/22 History tramadol 50 mg tablet 50 - 100 mg PO Q6H PRN Pain 03/06/22 03/10/24 History omeprazole 20 mg capsule,delayed 40 mg PO 0500 ACID REFLUX 05/12/22 03/10/24 06:00 History release warfarin 2 mg tablet 4 mg PO QHS BLOOD THINNER 05/12/22 03/02/24 History duloxetine 20 mg capsule,delayed 20 mg PO DAILY 12/20/22 Unknown History release carvedilol 3.125 mg tablet 3.125 mg PO .1200, 0000 01/02/24 Unknown History oxycodone 5 mg tablet 5 mg PO QHS 01/02/24 Unknown History 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 coagulans)) melatonin 10 mg capsule 10 mg PO QHS 10/13/24 Unknown History Allergy/AdvReac Type Severity Reaction Status Date / Time latex Allergy Rash Verified 10/13/24 13:24 amoxicillin AdvReac Nausea/Vom/ Verified 10/13/24 13:24 Diarrhea naproxen AdvReac Nausea/Vom/ Verified 10/13/24 13:24 Diarrhea sulfamethoxazole (From AdvReac Nausea/Vom/ Verified 10/13/24 13:24 Bactrim) Diarrhea trimethoprim (From Bactrim) AdvReac Nausea/Vom/ Verified 10/13/24 13:24 Diarrhea Surgical History History of cystoscopy Hx of surgical procedure History of esophagogastroduodenoscopy (EGD) History of selective injection of anesthetic agent around lumbar nerve root History of colonoscopy Hx of foot surgery History of rectal surgery H/O colectomy Social History Smoking Status: Never smoker alcohol intake: never substance use type: does not use ROS Constitutional Constitutional: Denies chills, fatigue or fever(s) Eyes Eyes: Denies blurry vision, change in vision or loss of vision ENT HEENT: Denies dysphagia, hearing loss or sore throat Cardiovascular Cardiovascular: Denies chest pain, edema or palpitations Respiratory/Chest Respiratory/Chest: Denies dry cough, dyspnea, dyspnea on exertion, productive cough or wheezing Gastrointestinal Gastrointestinal: Denies diarrhea, nausea or vomiting Genitourinary Genitourinary: Denies dysuria or polyuria Musculoskeletal Musculoskeletal: Denies arthralgias, joint stiffness or muscle weakness Integumentary Integumentary: Reports erythema and wounds Neurologic Neurologic: Denies dizziness, memory loss or weakness Psychiatric Psychiatric: Denies homicidal ideation or suicidal ideation Endocrine Endocrinology: Denies polydipsia, polyphagia or polyuria Hematologic/Lymphatic Hematologic/Lymphatic: Denies easy bleeding or easy bruising Allergic/Immunologic Allergic/Immunologic: Denies throat swelling, tongue swelling or urticaria Vital Signs Vital Signs Vital Signs: 12/12/24 09:26 Temperature 96 F L Temperature Source Temporal Pulse Rate 106 H Respiratory Rate 18 Blood Pressure 123/72 H Blood Pressure Mean 89 Blood Pressure Source Monitor Blood Pressure Position Semi-Fowlers Blood Pressure Location Right Arm Physical Exam Const alert, oriented x3 and no apparent distress Nutritional Appearance: morbidly obese HEENT normocephalic and head/scalp atraumatic Resp normal respiratory effort Effort and Inspection: able to speak in complete sentences Cardio regular rate and regular rhythm Extremity General Extremity: edema bilateral lower extremity Details: moderate Skin General Skin Exam: erythema Wounds: wounds noted Wound Narrative: as in clinical panel Neuro oriented x3 and moves all extremities Debridement Note Debridement Note Wound debrided: left buttock/gluteal cleft fistula site Laterality: Left No debridement was completed: No debridement was completed today Post-Debridement Measurements and Additional Note: Post-Debridement Measurements/Treatment CIARRA - Nurse 1 - General Ulcer Assessment Start: 12/12/24 09:26 Freq: Status: Active Protocol: NILTON Activity Type Activity Date Activity User E-sign Co-sign Detail Recorded Client Recorded Date Recorded By Document 12/12/24 09:26 DL [id number] 12/12/24 09:41 RB 12/12/24 09:26 WC - Today's Visit Information Type of service Follow-up Visit (Physician/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 Any new allergies or adverse reactions No Had a fall/change in ADL's that may No increase risk of falls Signs or symptoms of abuse and/or No neglect since last visit Have you been in the hospital since your No last visit? Has dressing in place as prescribed Yes Has compression in place as prescribed No Has offloadiing in place as prescribed No Experienced any changes in pain level or No management Pain Scale: 0-10 Numeric Is Patient Pain Free? No BUTTOCK -Description Aching -Intensity 5 -Duration (hours) Acute -Pain Behavior Guarding -Pain Aggravating Factors Changing Position, Exercise/ Activity -Alleviating Factors/Interventions Medication -Effectiveness of Alleviating Factor/ Minimally Intervention effective Communication Assessment Preferred language [employer] Required No Able to Read Yes Able to Write Yes Communication Tools None Right Hearing Abillity Normal Left Hearing Abillity Normal Visual Assistive Devices Glasses Teaching Assessment Preferences Verbal,Written, Audio/Visual, Demonstration Barriers to Learning Low Literacy Readiness To Learn Good Willingness to Engage in Self Management Med Activies Readiness to Engage in Self Management Med Activities Anxiety Level Anxious Cooperation Cooperative Perception Coherent Interest in Health Problem Asks Questions Education Importance Acknowledges Need Does Patient Smoke tobacco or other No substances Smoking Status Never smoker Is Patient Diabetic No Functional Assessment Recent Decline in Ability to Perform Ambulation, Bathing,Lower Body Dressing Assistive Device With Patient WHEELCHAIR Culture/Roman Catholic/Scabbler Cultural/Roman Catholic Needs that may affect No Treatment Plan Would you allow our hospital color specialist to No meet you for the purpose of spiritual/ emotional support? Scabbler to contact place of baptism No WC - Nurse 1 - General Ulcer Measurement Start: 12/12/24 09:26 Freq: Status: Active Protocol: Activity Type Activity Date Activity User E-sign Co-sign Detail Recorded Client Recorded Date Recorded By Document 12/12/24 09:26 RB [id number] 12/12/24 09:41 RB 12/12/24 09:26 Wound Center Nurse 1 21. R BUTTOCK -Combined with other wound No -Current Size (cm) - Length 0.1 -Current Size (cm) - Width 0.1 -Current Size (cm) - Depth 0.1 -Total Square Cm 0.01 -Photo Taken Yes -Tunneling No -Undermining/Tunneling No -Circular Undermining No -Exudate Amt Large -Exudate Type Serosanguineous -Wound Margin Distinct, Outline Attached -Granulation Amt Medium (34-66%) -Granulation Quality Avimor -Slough/Fibrin Yes -Necrosis Amt Medium (34-66%) -Necrotic Tissue Type Adherent Slough -Structure Exposed N/A -Texture (Meg-wound Skin Appearance) Assessed, Excoriation -Moisture (Meg-wound Skin Appearance) Assessed -Color (Meg-wound Skin Appearance) Assessed -Temperature (Meg-wound Skin No Abnormality Appearance) (Pt Warm) -Tenderness on Palpation (Meg-wound No Skin Appearance) -Ulcer Cleansing Wound Cleanser -Foul Odor after Cleansing Yes -Anesthetic Used 5% Lidocaine Gel 20. L BUTTOCK -Combined with other wound No -Current Size (cm) - Length 0.1 -Current Size (cm) - Width 0.1 -Current Size (cm) - Depth 0.1 -Total Square Cm 0.01 -Photo Taken Yes -Tunneling No -Undermining/Tunneling No -Circular Undermining No -Exudate Amt Large -Exudate Type Serosanguineous -Wound Margin Distinct, Outline Attached -Granulation Amt Medium (34-66%) -Granulation Quality Avimor -Slough/Fibrin Yes -Necrosis Amt Medium (34-66%) -Necrotic Tissue Type Adherent Slough -Structure Exposed N/A -Texture (Meg-wound Skin Appearance) Assessed, Excoriation -Color (Meg-wound Skin Appearance) Assessed -Temperature (Meg-wound Skin No Abnormality Appearance) (Pt Warm) -Tenderness on Palpation (Meg-wound No Skin Appearance) -Ulcer Cleansing Wound Cleanser -Foul Odor after Cleansing Yes -Anesthetic Used 5% Lidocaine Gel - Nurse 2 - General Ulcer CM Notes Start: 12/12/24 09:26 Freq: Status: Active Protocol: Activity Type Activity Date Activity User E-sign Co-sign Detail Recorded Client Recorded Date Recorded By Document 12/12/24 09:57 [id number] 12/12/24 10:10 12/12/24 09:57 Wound Center Nurse 2 #22 L INNER BUTTOCK FISTULA -Time 10:09 -Correct Patient Yes -Correct Side, Site, Position Yes -Correct Procedure No -Procedure Performed No -Post Debridement (cm) - Depth 3.8 -Tunneling No -Undermining/Tunneling No -Circular Undermining No -Wound/Ulcer Outcome Not Healed -Ulcer Cleansing Not Cleansed -Foul Odor after Cleansing No -Bioengineered Tissue No -Offloading No 21. R BUTTOCK -Time 09:57 -Correct Patient Yes -Correct Side, Site, Position Yes -Correct Procedure No -Procedure Performed No -Wound/Ulcer Outcome Not Healed -Bleeding Controlled with NA -Assistive Device(s) Walker 20. L BUTTOCK -Time 10:07 -Correct Patient Yes -Correct Side, Site, Position Yes -Correct Procedure No -Procedure Performed No -Tunneling No -Undermining/Tunneling No -Circular Undermining No -Wound/Ulcer Outcome Not Healed -Foul Odor after Cleansing No -Bioengineered Tissue No -Bleeding Controlled with NA Pain Scale: 0-10 Numeric Is Patient Pain Free? Yes - Nurse 3 - General Ulcer D/C NN Start: 12/12/24 09:26 Freq: Status: Active Protocol: Activity Type Activity Date Activity User E-sign Co-sign Detail Recorded Client Recorded Date Recorded By Document 12/12/24 10:32 [facility] [id number] 12/12/24 10:34 [facility] 12/12/24 10:32 Wound Care Center Nurse 3 #22 L INNER BUTTOCK FISTULA -Other Dressing LOTION PER KW DAIRY ASSOCIATE 21. R BUTTOCK -Other Dressing LOTION PER KW 20. L BUTTOCK -Other Dressing LOTION PER KW DAIRY ASSOCIATE Treatment Response Procedure Tolerated Well Pain Scale: 0-10 Numeric Is Patient Pain Free? Yes WC - Visit Discharge Discharge Condition Stable Ambulatory Status Wheelchair Transportation Private Auto Accompanied by MOM Additional Wound Wound debrided: right buttock Laterality: Right Wound Grade/Stage: Stage 1 Operative Diagnosis: no debridement necessary Additional Wound Wound debrided: left buttock Laterality: Left Wound Grade/Stage: Stage 1 Operative Diagnosis: No debridement necessary Assessment/Plan Assessment/Plan (1) Facet arthritis of lumbosacral region: CODE(S): M47.817 - Spondylosis without myelopathy or radiculopathy, lumbosacral region (2) Morbid obesity: CODE(S): E66.01 - Morbid (severe) obesity due to excess calories (3) Bilateral hip joint arthritis: CODE(S): M16.0 - Bilateral primary osteoarthritis of hip (4) DDD (degenerative disc disease), lumbosacral: CODE(S): M51.37 - Other intervertebral disc degeneration, lumbosacral region QUALIFIERS: Disc-related pain type: discogenic back pain and lower extremity pain Qualified Code(s): M51.372 - Other intervertebral disc degeneration, lumbosacral region with discogenic back pain and lower extremity pain (5) Decubitus ulcer of left buttock, stage 2: CODE(S): L89.322 - Pressure ulcer of left buttock, stage 2 (6) Ileostomy in place: CODE(S): Z93.2 - Ileostomy status (7) Walking difficulty due to ankle and foot: CODE(S): R26.2 - Difficulty in walking, not elsewhere classified (8) Physical deconditioning: CODE(S): R53.81 - Other malaise PLAN: Plan Evaluation performed today in clinic as annotated above. Melanie's mother present during visit as well. Packing the ulcer/fistula with Promogran before was effective but Melanie's mobility is severely diminished and this is not possible in her current home environment. We discussed possible admission to SNF or Rehab for treatment of her ulcer and PT to strengthen. At home wound-care instructions: The patient will wash with antibacterial soap and water and will apply Calmoseptine or Pinqsalve to buttock area and importance of offloading was stressed to her. Keep dressing clean and dry. Off-loading: The patient was instructed to avoid pressure and friction on the affected areas. Reposition every 2 hours at minimum. Avoid prolonged standing and/or dangling of legs. When seated, feet should be elevated at chest level. Frequent ambulation is encouraged. Diet: Patient encouraged to increase protein intake while taking caution to avoid high carbohydrate and/or sugar intake. Labs/cultures/imaging: Follow-up: Return in 1 month for wound care follow up. Return sooner or report to the emergency room should symptoms worsen, or new symptoms arise. Note: [employer] speech recognition cloth spreader screen printing software was used to create portions of this document. Sound-alike and misspelled words, as well as other cloth spreader screen printing errors may be contained in the documentation.
== END 2024-12-21 23:59 | disposition home or self-care (01) ==
LOC: WC 08:51
PROVIDERS: PCP Family Medicine; Referring Provider Family Medicine; Visit Provider Family Medicine
DX: L89.321 Pressure ulcer of left buttock, stage 1 (principal); Z93.2 Ileostomy status; E66.01 Morbid (severe) obesity due to excess calories; M51.372 Other intervertebral disc degeneration, lumbosacral region with discogenic back pain and lower extremity pain; M47.817 Spondylosis without myelopathy or radiculopathy, lumbosacral region; K21.9 Gastro-esophageal reflux disease without esophagitis; M16.0 Bilateral primary osteoarthritis of hip; R26.2 Difficulty in walking, not elsewhere classified; Z79.01 Long term (current) use of anticoagulants; Z79.82 Long term (current) use of aspirin; Z79.899 Other long term (current) drug therapy; Z86.718 Personal history of other venous thrombosis and embolism
CPT/HCPCS: 99213; G0463

== ENCOUNTER 2025-01-09 10:34 | Outpatient (RCR) | payer MEDICARE, MEDICAID, SELFPAY ==
[2025-01-09 11:28] VITALS: BP 97/50; PULSE 102; RESP 20; TEMP 36.4
--- NOTE | 2025-01-09 12:16 | WC ---
PHOTO-B/L BUTTOCK 01/09/25
--- NOTE | 2025-01-09 15:19 | PN.PCM_ITS ---
History of Present Illness Date of Service: 01/09/25 Chief Complaint: left buttock ulcer/fistula, left heel History of Wound: This is a 49-year-old morbidly obese female who presents today for treatment of a nonhealing ulcer of her left buttock. She underwent surgical treatment 2 weeks ago for a kidney stone and when they were transferring her to OR table they noted a large amount of bloody purulent drainage expressed from her buttock area and advised her to seek wound care treatment. She has been very immobile for the last 2 years due to hip and back pain. She has been treated for this area previously and it had healed. The area is at the site of an external fistula opening that had been present due to chronic colitis. She is on chronic anticoagulation with warfarin and is obese. Subjective Subjective Melanie's left heel has had increased pain and possibly some drainage. Her mom has been applying calmoseptine to her sacral area and she has been trying to offload as best as she can but is still not able to get in and out of bed and is sleeping in a recliner with her feet elevated. She still has some bloody drainage from her fistula site on her buttock but it has been less She denies wearing shoes at home or her left ankle brace but admits to not always offloading her heel. Objective Data Objective Data Vital Signs: Vital Signs Temp Pulse Resp BP O2 Del Method 97.5 F L 102 H 20 H 97/50 L Room Air 01/09/25 11:28 01/09/25 11:28 01/09/25 11:28 01/09/25 11:28 01/09/25 11:28 Oxygen Delivery Method Room Air Physical Exam Const alert, oriented x3 and no apparent distress Nutritional Appearance: morbidly obese HEENT normocephalic and head/scalp atraumatic Resp normal respiratory effort Effort and Inspection: able to speak in complete sentences Cardio regular rate and regular rhythm Extremity General Extremity: edema bilateral lower extremity Details: moderate Skin General Skin Exam: erythema Wounds: wounds noted Wound Narrative: Sacrum - dry, scaling epithelium with underlying dermis exposed in several areas from shearing injury Left heel - Keratinized scale removed and revealed underlying blister and ulcer Left buttock - very small diameter, about the width of the probe, tunneled ulcer at the medial aspect of the left buttock Neuro oriented x3 and moves all extremities Debridement Note Debridement Note Wound debrided: left buttock/gluteal cleft fistula site Laterality: Left Instrument Used: - (probe) Tissue Removed: none Debridement Free Text: approx. 2.5 cm in depth No debridement was completed: No debridement was completed today Post-Debridement Measurements and Additional Note: Post-Debridement Measurements/Treatment - Nurse 1 - General Ulcer Assessment Start: 01/09/25 11:28 Freq: Status: Active Protocol: [email or web address] Activity Type Activity Date Activity User E-sign Co-sign Detail Recorded Client Recorded Date Recorded By Document 01/09/25 11:28 DS [id number] 01/09/25 11:30 DS Edit Result 01/09/25 11:28 DS (1) [id number] 01/09/25 11:32 DS (1) Temperature (97.8 F-99.1 F) => 97.5 F L Pulse Rate (60-100) => 102 H Respiratory Rate (12-18) => 20 H Blood Pressure (90/60-120/80) => 97/50 L Blood Pressure Mean (mm Hg) => 65 01/09/25 11:28 WC - Today's Visit Information Type of service Follow-up Visit (Physician/RETAIL BUSINESS DEVELOPMENT MANAGER ) Arrival Mode Ambulatory, Wheelchair Transfer Assistance Manual Accompanied by MOM Patient Identification Verified (Name & Yes ) Safety Precautions Fall Prevention Vital Signs Temperature (97.8 F-99.1 F) 97.5 F L Temperature Source Temporal Pulse Rate (60-100) 102 H Pulse Location Monitor Respiratory Rate (12-18) 20 H Respiratory rate source Observation Oxygen Delivery Method Room Air Blood Pressure (90/60-120/80) 97/50 L Blood Pressure Mean (mm Hg) 65 Source Monitor Position Semi-Fowlers Blood Pressure Location Left Forearm History Since Last Visit- (Skip if this is Patient's initial visit) Have you changed medications since your No last visit? Any new allergies or adverse reactions No Had a fall/change in ADL's that may No increase risk of falls Signs or symptoms of abuse and/or No neglect since last visit Have you been in the hospital since your No last visit? Has dressing in place as prescribed Yes Has compression in place as prescribed N/A Has offloadiing in place as prescribed N/A Experienced any changes in pain level or Yes management Left Footwear Regular Shoe Right Footwear Regular Shoe Pain Scale: 0-10 Numeric Is Patient Pain Free? Yes WC - Nurse 1 - General Ulcer Measurement Start: 01/09/25 11:28 Freq: Status: Active Protocol: Activity Type Activity Date Activity User E-sign Co-sign Detail Recorded Client Recorded Date Recorded By Document 01/09/25 11:28 DS [id number] 01/09/25 11:30 DS 01/09/25 11:28 Wound Center Nurse 1 21. R BUTTOCK -Current Size (cm) - Length 0.1 -Current Size (cm) - Width 0.1 -Current Size (cm) - Depth 0.1 -Total Square Cm 0.01 -Date of Last Picture (Recall this 01/09/25 field) -Photo Taken Yes -Tunneling No -Undermining/Tunneling No -Circular Undermining No -Texture (Meg-wound Skin Appearance) Assessed -Moisture (Meg-wound Skin Appearance) Assessed -Color (Meg-wound Skin Appearance) Not Assessed -Temperature (Meg-wound Skin No Abnormality Appearance) (Pt Warm) -Tenderness on Palpation (Meg-wound No Skin Appearance) -Ulcer Cleansing Soap and Water -Foul Odor after Cleansing No -Anesthetic Used 5% Lidocaine Gel 20. L BUTTOCK -Current Size (cm) - Length 0.1 -Current Size (cm) - Width 0.1 -Current Size (cm) - Depth 0.1 -Total Square Cm 0.01 -Date of Last Picture (Recall this 01/09/25 field) -Photo Taken Yes -Tunneling No -Undermining/Tunneling No -Circular Undermining No -Wound Margin Distinct, Outline Attached -Texture (Meg-wound Skin Appearance) Assessed -Moisture (Meg-wound Skin Appearance) Assessed -Color (Meg-wound Skin Appearance) Assessed -Temperature (Meg-wound Skin No Abnormality Appearance) (Pt Warm) -Tenderness on Palpation (Meg-wound No Skin Appearance) -Ulcer Cleansing Soap and Water -Foul Odor after Cleansing No -Anesthetic Used 5% Lidocaine Gel WC - Nurse 2 - General Ulcer CM Notes Start: 01/09/25 11:28 Freq: Status: Active Protocol: Activity Type Activity Date Activity User E-sign Co-sign Detail Recorded Client Recorded Date Recorded By Document 01/09/25 12:01 [id number] 01/09/25 12:13 01/09/25 12:01 Wound Center Nurse 2 #23 LEFT HEEL -Time 12:06 -Correct Patient Yes -Correct Side, Site, Position Yes -Correct Procedure Yes -Procedure Performed Yes -Type of Procedure Debridement -Clinical Debridement Subcutaneous -Tissue Removed Subcutaneous -Post Debridement (cm) - Length 0.7 -Post Debridement (cm) - Width 0.5 -Post Debridement (cm) - Depth 0.1 -Total Square (Post) (cm) 0.35 -Area of Debridement (cm) - Length 0.7 -Area of Debridement (cm) - Width 0.5 -Total Square (Area) (cm) 0.35 -Tunneling No -Undermining/Tunneling No -Circular Undermining No -Wound/Ulcer Outcome Not Healed -Ulcer Cleansing Not Cleansed -Foul Odor after Cleansing No -Bioengineered Tissue No -Bleeding Controlled with Pressure -Treatment Response Procedure Not Tolerated Well -Offloading No -Assistive Device(s) Wheelchair -Pressure Reduction Wheelchair cushion -Debridement - Subq, 1st 20sq cm Yes #22 L INNER BUTTOCK FISTULA -Time 12:12 -Correct Patient Yes -Correct Side, Site, Position Yes -Correct Procedure No -Procedure Performed No -Post Debridement (cm) - Depth 1.0 -Tunneling No -Undermining/Tunneling No -Circular Undermining No -Wound/Ulcer Outcome Not Healed -Bleeding Controlled with NA 21. R BUTTOCK -Time 12:13 -Correct Patient Yes -Correct Side, Site, Position Yes -Correct Procedure No -Procedure Performed No -Post Debridement (cm) - Length 1.0 -Post Debridement (cm) - Width 1.0 -Post Debridement (cm) - Depth 0.1 -Total Square (Post) (cm) 1.00 -Tunneling No -Undermining/Tunneling No -Circular Undermining No -Wound/Ulcer Outcome Not Healed -Ulcer Cleansing Not Cleansed -Foul Odor after Cleansing No -Bioengineered Tissue No -Bleeding Controlled with NA -Offloading No 20. L BUTTOCK -Time 12:12 -Correct Patient Yes -Correct Side, Site, Position Yes -Correct Procedure No -Procedure Performed No -Tunneling No -Undermining/Tunneling No -Circular Undermining No -Wound/Ulcer Outcome Healed- Epithelialized -Foul Odor after Cleansing No -Bioengineered Tissue No -Bleeding Controlled with NA -Offloading No Pain Scale: 0-10 Numeric Is Patient Pain Free? Yes WC - Nurse 3 - General Ulcer D/C NN Start: 01/09/25 11:28 Freq: Status: Active Protocol: Activity Type Activity Date Activity User E-sign Co-sign Detail Recorded Client Recorded Date Recorded By Document 01/09/25 12:33 RB [id number] 01/09/25 12:35 RB 01/09/25 12:33 Wound Care Center Nurse 3 #23 LEFT HEEL -Ulcer Cleansing Rinsed/ Irrigated with Saline -Primary Dressing Applied Aquacel Extra -Other Dressing NURSES HAT -Primary Dressing Covered/Secured with Dry Gauze & Roll Gauze, Secured with Tape -Aquacel Extra 1 #22 L INNER BUTTOCK FISTULA -Ulcer Cleansing Rinsed/ Irrigated with Saline -Primary Dressing Applied C Hydrogel -Primary Dressing Covered/Secured with Dry Gauze -Hydrogel 1 21. R BUTTOCK -Ulcer Cleansing Rinsed/ Irrigated with Saline -Primary Dressing Applied C Hydrogel -Primary Dressing Covered/Secured with Dry Gauze -Hydrogel 1 20. L BUTTOCK -Other Dressing HYDROGEL -Primary Dressing Covered/Secured with Dry Gauze Treatment Response Procedure Tolerated Well Pain Scale: 0-10 Numeric Is Patient Pain Free? No LEFT HEEL -Description Aching -Intensity 5 -Duration (hours) Acute -Pain Behavior Withdrawal from Touch -Alleviating Factors/Interventions Medication -Effectiveness of Alleviating Factor/ Minimally Intervention effective WC - Visit Discharge Discharge Condition Stable Ambulatory Status Wheelchair Transportation Private Auto Accompanied by JALEN Medication Reconcilliation completed & No provided to patient/care provider Clinical Summary of Care Provided Yes Additional Wound Wound debrided: right buttock Laterality: Right Wound Grade/Stage: Stage 1 Operative Diagnosis: no debridement necessary Additional Wound Wound debrided: left buttock Laterality: Left Wound Grade/Stage: Stage 1 Operative Diagnosis: No debridement necessary Additional Wound Wound debrided: left heel Laterality: Left Wound Grade/Stage: Stage 2 Type of Debridement: Excisional debridement Anesthesia Used: 5% Lidocaine Gel and Cetacaine Depth: Down to and including healthy tissue and in the subcutaneous layer Percentage of wound debrided: 100 Instrument Used: 5mm curette Tissue Removed: Yellow slough, devitalized tissue Severity: Fat Layer Exposed Amount of bleeding with debridement: Mild Bleeding Controlled with: Compression and gauze Patient tolerated procedure: Patient tolerated procedure well Assessment/Plan Assessment/Plan (1) Facet arthritis of lumbosacral region: CODE(S): M47.817 - Spondylosis without myelopathy or radiculopathy, lumbosacral region (2) Morbid obesity: CODE(S): E66.01 - Morbid (severe) obesity due to excess calories (3) Bilateral hip joint arthritis: CODE(S): M16.0 - Bilateral primary osteoarthritis of hip (4) DDD (degenerative disc disease), lumbosacral: CODE(S): M51.37 - Other intervertebral disc degeneration, lumbosacral region QUALIFIERS: Disc-related pain type: discogenic back pain and lower extremity pain Qualified Code(s): M51.372 - Other intervertebral disc degeneration, lumbosacral region with discogenic back pain and lower extremity pain (5) Decubitus ulcer of left buttock, stage 2: CODE(S): L89.322 - Pressure ulcer of left buttock, stage 2 (6) Ileostomy in place: CODE(S): Z93.2 - Ileostomy status (7) Walking difficulty due to ankle and foot: CODE(S): R26.2 - Difficulty in walking, not elsewhere classified (8) Physical deconditioning: CODE(S): R53.81 - Other malaise PLAN: Plan Evaluation performed today in clinic as annotated above. Melanie's mother present during visit as well. Packing the ulcer/fistula with Liz pedro before was effective but Melanie's mobility is severely diminished and this is not possible in her current home environment. She will apply Promogran to her left heel and cover with silicone bordered dressing. We again discussed possible admission to SNF or Rehab for treatment of her ulcer and PT to strengthen. At home wound-care instructions: The patient will wash with antibacterial soap and water and will apply Calmoseptine or Pinqsalve to buttock area and importance of offloading was stressed to her. Keep dressing clean and dry. Off-loading: The patient was instructed to avoid pressure and friction on the affected areas. Reposition every 2 hours at minimum. Avoid prolonged standing and/or dangling of legs. When seated, feet should be elevated at chest level. Frequent ambulation is encouraged. Diet: Patient encouraged to increase protein intake while taking caution to avoid high carbohydrate and/or sugar intake. Labs/cultures/imaging: Follow-up: Return in 1 month for wound care follow up. Return sooner or report to the emergency room should symptoms worsen, or new symptoms arise. Note: [employer] speech recognition restaurant operations manager software was used to create portions of this document. Sound-alike and misspelled words, as well as other restaurant operations manager errors may be contained in the documentation.
== END 2025-01-20 23:59 | disposition home or self-care (01) ==
LOC: WC 10:34
PROVIDERS: PCP Family Medicine; Referring Provider Family Medicine; Visit Provider Family Medicine
DX: L89.321 Pressure ulcer of left buttock, stage 1 (principal); Z93.2 Ileostomy status; L97.422 Non-pressure chronic ulcer of left heel and midfoot with fat layer exposed; E66.01 Morbid (severe) obesity due to excess calories; M16.0 Bilateral primary osteoarthritis of hip; M47.817 Spondylosis without myelopathy or radiculopathy, lumbosacral region; Z79.01 Long term (current) use of anticoagulants; R26.2 Difficulty in walking, not elsewhere classified; M51.370 Other intervertebral disc degeneration, lumbosacral region with discogenic back pain only; L89.311 Pressure ulcer of right buttock, stage 1
CPT/HCPCS: 11042

== ENCOUNTER 2025-02-06 10:29 | Outpatient (RCR) | payer MEDICARE, MEDICAID, SELFPAY ==
[2025-02-06 11:38] VITALS: BP 130/81; PULSE 109; RESP 20; TEMP 36
--- NOTE | 2025-02-06 13:26 | RAD_ITS ---
PROCEDURE: FOOT MIN 3 VIEWS 02/06/2025 REASON FOR EXAM: PAIN, HEEL ULCER TECHNIQUE: Procedure Code: RADFO Modality: DX Procedure: FOOT MIN 3 VIEWS Laterality: Left COMPARISON: Left foot study dated 05/28/2022 FINDINGS: The exam is limited due to the patient having limited range of motion. These are the best films possible according to the technologist. Bones: There is normal mineralization of the osseous structures of the left foot. There are no acute fractures. There is no periosteal reaction involving the calcaneus to suggest osteomyelitis. Due to the post traumatic changes of the left foot and ankle, it may be of value to have an MRI to exclude osteomyelitis. There is an end there is a fight involving the posterior superior calcaneus at the insertion site of the Achilles tendon. Joints: There is hallux valgus deformity of the 1st digit. The 2nd, 3rd, 4th and 5th digits are flexed limiting the visibility of the joint spaces and osseous structures. There is significant arthritic changes involving the left midfoot and ankle. Soft tissues: Soft tissue swelling of the foot is noted. Primarily along the heel aspect. Other: Chronic posttraumatic and postoperative changes of the ankle are noted. Arteriosclerotic vascular disease of the vessels of the ankle and foot are noted. RAD/Foot min 3 Views IMPRESSION: There are posttraumatic and postsurgical changes of the left foot and ankle. N o obvious evidence of osteomyelitis is noted however, due to the osseous changes and significant soft tissue swelling, an MR I of the foot may be of value to completely exclude osteomyelitis, if clinically indicated. Reading Location: [id number]
--- NOTE | 2025-02-06 14:08 | PCM.WC.PN ---
History of Present Illness Date of Service: 02/06/25 Chief Complaint: left buttock ulcer/fistula, left heel History of Wound: This is a 49-year-old morbidly obese female who presents today for treatment of a nonhealing ulcer of her left buttock. She underwent surgical treatment 2 weeks ago for a kidney stone and when they were transferring her to OR table they noted a large amount of bloody purulent drainage expressed from her buttock area and advised her to seek wound care treatment. She has been very immobile for the last 2 years due to hip and back pain. She has been treated for this area previously and it had healed. The area is at the site of an external fistula opening that had been present due to chronic colitis. She is on chronic anticoagulation with warfarin and is obese. Subjective Subjective Melanie's left heel has continued to cause her a lot of pain but there is no drainage. Her mom has been applying calmoseptine to her sacral area and she has been trying to offload as best as she can but is still not able to get in and out of bed and is sleeping in a recliner with her feet elevated. She continues to have bloody drainage from her fistula site on her buttock and now there is another small open area lateral to the fistula opening. She denies wearing shoes at home or her left ankle brace but admits to not always offloading her heel. Objective Data Objective Data Vital Signs: Vital Signs Temp Pulse Resp BP 96.8 F L 109 H 20 H 130/81 H 02/06/25 11:38 02/06/25 11:38 02/06/25 11:38 02/06/25 11:38 Physical Exam Const alert, oriented x3 and no apparent distress Nutritional Appearance: morbidly obese HEENT normocephalic and head/scalp atraumatic Resp normal respiratory effort Effort and Inspection: able to speak in complete sentences Cardio regular rate and regular rhythm Extremity General Extremity: edema bilateral lower extremity Details: moderate Skin General Skin Exam: erythema Wounds: wounds noted Wound Narrative: Sacrum - dry skin Left heel - Keratinized scale removed and no drainage Left buttock - very small diameter, about the width of the probe, tunneled ulcer at the medial aspect of the left buttock and a second opening that is 0.5 cm in depth but not connected to the previous Neuro oriented x3 and moves all extremities Debridement Note Debridement Note Wound debrided: left buttock/gluteal cleft fistula site Laterality: Left Instrument Used: - (probe) Tissue Removed: none Debridement Free Text: approx. 2.5 cm in depth No debridement was completed: No debridement was completed today Post-Debridement Measurements and Additional Note: Post-Debridement Measurements/Treatment WC - Nurse 1 - General Ulcer Assessment Start: 02/06/25 11:38 Freq: Status: Active Protocol: [email or web address] Activity Type Activity Date Activity User E-sign Co-sign Detail Recorded Client Recorded Date Recorded By Document 02/06/25 11:38 RB [id number] 02/06/25 12:00 RB 02/06/25 11:38 WC - Today's Visit Information Type of service Follow-up Visit (Physician/OVEN ATTENDANT ) Arrival Mode Ambulatory, Walker Transfer Assistance None Patient Identification Verified (Name & Yes ) Patient Requires Transmission-Based No Precautions Vital Signs Temperature (97.8 F-99.1 F) 96.8 F L Temperature Source Temporal Pulse Rate (60-100) 109 H Pulse Location Monitor Respiratory Rate (12-18) 20 H Respiratory rate source Observation Blood Pressure (90/60-120/80) 130/81 H Blood Pressure Mean (mm Hg) 97 Source Monitor Position Sitting Blood Pressure Location Left Arm History Since Last Visit- (Skip if this is Patient's initial visit) Have you changed medications since your No last visit? Any new allergies or adverse reactions No Had a fall/change in ADL's that may No increase risk of falls Signs or symptoms of abuse and/or No neglect since last visit Have you been in the hospital since your No last visit? Has dressing in place as prescribed Yes Has compression in place as prescribed N/A Has offloadiing in place as prescribed N/A Experienced any changes in pain level or No management Pain Scale: 0-10 Numeric Is Patient Pain Free? No buttocks -Description Aching -Intensity 7 -Duration (hours) Acute -Pain Behavior Withdrawal from Touch -Pain Aggravating Factors Exercise/ Activity, Sitting -Alleviating Factors/Interventions Medication -Effectiveness of Alleviating Factor/ Minimally Intervention effective - Nurse 1 - General Ulcer Measurement Start: 02/06/25 11:38 Freq: Status: Active Protocol: Activity Type Activity Date Activity User E-sign Co-sign Detail Recorded Client Recorded Date Recorded By Document 02/06/25 11:38 DL [id number] 02/06/25 12:00 RB 02/06/25 11:38 Wound Center Nurse 1 21. R BUTTOCK -Combined with other wound No -Current Size (cm) - Length 0.1 -Current Size (cm) - Width 0.1 -Current Size (cm) - Depth 0.1 -Total Square Cm 0.01 -Photo Taken Yes -Tunneling No -Undermining/Tunneling No -Circular Undermining No -Exudate Amt Medium -Exudate Type Serosanguineous -Wound Margin Distinct, Outline Attached -Granulation Amt Medium (34-66%) -Granulation Quality [place] -Slough/Fibrin Yes -Necrosis Amt Small (1-33%) -Necrotic Tissue Type Adherent Slough -Structure Exposed N/A -Texture (Meg-wound Skin Appearance) Assessed -Moisture (Meg-wound Skin Appearance) Assessed -Color (Meg-wound Skin Appearance) Assessed -Temperature (Meg-wound Skin No Abnormality Appearance) (Pt Warm) -Tenderness on Palpation (Meg-wound No Skin Appearance) -Ulcer Cleansing Wound Cleanser -Foul Odor after Cleansing No -Anesthetic Used 5% Lidocaine Gel #23 LEFT HEEL -Combined with other wound No -Current Size (cm) - Length 0.1 -Current Size (cm) - Width 0.1 -Current Size (cm) - Depth 0.1 -Total Square Cm 0.01 -Photo Taken Yes -Tunneling No -Undermining/Tunneling No -Circular Undermining No -Exudate Amt Small -Exudate Type Serosanguineous -Wound Margin Distinct, Outline Attached -Granulation Amt Medium (34-66%) -Granulation Quality [place] -Slough/Fibrin Yes -Necrosis Amt Small (1-33%) -Necrotic Tissue Type Adherent Slough -Structure Exposed N/A -Texture (Meg-wound Skin Appearance) Assessed,Callus -Moisture (Meg-wound Skin Appearance) Assessed -Color (Meg-wound Skin Appearance) Assessed -Temperature (Meg-wound Skin No Abnormality Appearance) (Pt Warm) -Tenderness on Palpation (Meg-wound No Skin Appearance) -Ulcer Cleansing Wound Cleanser -Foul Odor after Cleansing No -Anesthetic Used 5% Lidocaine Gel #22 L INNER BUTTOCK FISTULA -Combined with other wound No -Current Size (cm) - Length 0.1 -Current Size (cm) - Width 0.1 -Current Size (cm) - Depth 0.1 -Total Square Cm 0.01 -Photo Taken Yes -Tunneling No -Undermining/Tunneling No -Circular Undermining No -Exudate Amt Medium -Exudate Type Serosanguineous -Wound Margin Distinct, Outline Attached -Granulation Amt Medium (34-66%) -Granulation Quality [place] -Slough/Fibrin Yes -Necrosis Amt Medium (34-66%) -Necrotic Tissue Type Adherent Slough -Structure Exposed N/A -Texture (Meg-wound Skin Appearance) Assessed -Moisture (Meg-wound Skin Appearance) Assessed -Color (Meg-wound Skin Appearance) Assessed -Temperature (Meg-wound Skin No Abnormality Appearance) (Pt Warm) -Tenderness on Palpation (Meg-wound No Skin Appearance) -Ulcer Cleansing Wound Cleanser -Foul Odor after Cleansing No -Anesthetic Used 5% Lidocaine Gel WC - Nurse 2 - General Ulcer CM Notes Start: 02/06/25 11:38 Freq: Status: Active Protocol: Activity Type Activity Date Activity User E-sign Co-sign Detail Recorded Client Recorded Date Recorded By Document 02/06/25 12:03 [id number] 02/06/25 12:20 02/06/25 12:03 Wound Center Nurse 2 21. R BUTTOCK -Time 12:05 -Correct Patient Yes -Correct Side, Site, Position Yes #23 LEFT HEEL -Time 12:04 -Correct Patient Yes -Correct Side, Site, Position Yes -Correct Procedure No -Procedure Performed No -Tunneling No -Undermining/Tunneling No -Circular Undermining No -Wound/Ulcer Outcome Healed- Epithelialized -Foul Odor after Cleansing No -Bioengineered Tissue No -Bleeding Controlled with NA -Wound Comment(s) erythema #22 L INNER BUTTOCK FISTULA -Time 12:05 -Correct Patient Yes -Correct Side, Site, Position Yes -Correct Procedure No -Procedure Performed No -Post Debridement (cm) - Depth 1.8 -Tunneling No -Undermining/Tunneling No -Circular Undermining No -Wound/Ulcer Outcome Not Healed -Ulcer Cleansing Not Cleansed -Foul Odor after Cleansing No -Bioengineered Tissue No -Bleeding Controlled with NA -Wound Comment(s) fistula 20. L BUTTOCK -Time 12:05 -Correct Patient Yes -Correct Side, Site, Position Yes -Correct Procedure No -Procedure Performed No -Post Debridement (cm) - Length 0.1 -Post Debridement (cm) - Width 0.1 -Post Debridement (cm) - Depth 0.3 -Total Square (Post) (cm) 0.01 -Tunneling No -Undermining/Tunneling No -Circular Undermining No -Wound/Ulcer Outcome Not Healed -Foul Odor after Cleansing No -Bioengineered Tissue No -Bleeding Controlled with NA -Offloading No Pain Scale: 0-10 Numeric Is Patient Pain Free? Yes WC - Nurse 3 - General Ulcer D/C NN Start: 02/06/25 11:38 Freq: Status: Active Protocol: Activity Type Activity Date Activity User E-sign Co-sign Detail Recorded Client Recorded Date Recorded By Document 02/06/25 12:43 RB [id number] 02/06/25 12:44 RB 02/06/25 12:43 Wound Care Center Nurse 3 #23 LEFT HEEL -Primary Dressing Applied Silicone Border Foam 6x6 -Silicone Border Foam 6x6 1 #22 L INNER BUTTOCK FISTULA -Ulcer Cleansing Rinsed/ Irrigated with Saline -Primary Dressing Applied C Hydrogel -Hydrogel 1 20. L BUTTOCK -Other Dressing hydrogel Treatment Response Procedure Tolerated Well Pain Scale: 0-10 Numeric Is Patient Pain Free? Yes WC - Visit Discharge Discharge Condition Stable Ambulatory Status Wheelchair Transportation Private Auto Accompanied by mother Medication Reconcilliation completed & No provided to patient/care provider Clinical Summary of Care Provided Yes Notes: [facility] Additional Wound Wound debrided: left buttock Operative Diagnosis: No debridement necessary Additional Wound Wound debrided: left heel Laterality: Left Wound Grade/Stage: Stage 2 Type of Debridement: Selective debridement Anesthesia Used: 5% Lidocaine Gel Depth: Down to and including healthy tissue Percentage of wound debrided: 100 Instrument Used: - (gauze) Tissue Removed: devitalized tissue Severity: Fat Layer Exposed Amount of bleeding with debridement: None Patient tolerated procedure: Patient tolerated procedure well Assessment/Plan Assessment/Plan (1) Facet arthritis of lumbosacral region: CODE(S): M47.817 - Spondylosis without myelopathy or radiculopathy, lumbosacral region (2) Morbid obesity: CODE(S): E66.01 - Morbid (severe) obesity due to excess calories (3) Bilateral hip joint arthritis: CODE(S): M16.0 - Bilateral primary osteoarthritis of hip (4) DDD (degenerative disc disease), lumbosacral: CODE(S): M51.37 - Other intervertebral disc degeneration, lumbosacral region QUALIFIERS: Disc-related pain type: discogenic back pain and lower extremity pain Qualified Code(s): M51.372 - Other intervertebral disc degeneration, lumbosacral region with discogenic back pain and lower extremity pain (5) Decubitus ulcer of left buttock, stage 2: CODE(S): L89.322 - Pressure ulcer of left buttock, stage 2 (6) Ileostomy in place: CODE(S): Z93.2 - Ileostomy status (7) Walking difficulty due to ankle and foot: CODE(S): R26.2 - Difficulty in walking, not elsewhere classified (8) Physical deconditioning: CODE(S): R53.81 - Other malaise PLAN: Plan Evaluation performed today in clinic as annotated above. Melanie's mother present during visit as well. Packing the ulcer/fistula with Promogran before was effective but Melanie's mobility is severely diminished and this is not possible in her current home environment. She will apply ABD/padding to left heel and try to elevate as much as possible. We again discussed possible admission to SNF or Rehab for PT to strengthen. At home wound-care instructions: The patient will wash with antibacterial soap and water and will apply Calmoseptine or Pinqsalve to buttock area and importance of offloading was stressed to her. She will apply hydrogel to ulcers on buttock. Keep dressing clean and dry. Off-loading: The patient was instructed to avoid pressure and friction on the affected areas. Reposition every 2 hours at minimum. Avoid prolonged standing and/or dangling of legs. When seated, feet should be elevated at chest level. Frequent ambulation is encouraged. Diet: Patient encouraged to increase protein intake while taking caution to avoid high carbohydrate and/or sugar intake. Labs/cultures/imaging: Follow-up: Return in 1 month for wound care follow up. Return sooner or report to the emergency room should symptoms worsen, or new symptoms arise. Note: [employer] speech recognition ore fielder software was used to create portions of this document. Sound-alike and misspelled words, as well as other ore fielder errors may be contained in the documentation.
== END 2025-02-20 23:59 | disposition home or self-care (01) ==
LOC: WC 10:29
PROVIDERS: PCP Family Medicine; Referring Provider Family Medicine; Visit Provider Family Medicine
DX: L89.322 Pressure ulcer of left buttock, stage 2 (principal); Z93.2 Ileostomy status; L97.422 Non-pressure chronic ulcer of left heel and midfoot with fat layer exposed; E66.01 Morbid (severe) obesity due to excess calories; R26.2 Difficulty in walking, not elsewhere classified; M47.817 Spondylosis without myelopathy or radiculopathy, lumbosacral region; M16.0 Bilateral primary osteoarthritis of hip; Z79.01 Long term (current) use of anticoagulants; M51.372 Other intervertebral disc degeneration, lumbosacral region with discogenic back pain and lower extremity pain; R53.81 Other malaise
CPT/HCPCS: 73630; 99213; G0463

== ENCOUNTER → 2025-03-04 | Outpatient (CLI) | payer MEDICARE, MEDICAID, SELFPAY | END | disposition home or self-care (01) | LOC: LABSPEC 16:17 | PROVIDERS: PCP Family Medicine; Visit Provider Family Medicine | DX: S91.302A Unspecified open wound, left foot, initial encounter (principal) | CPT/HCPCS: 87070; 87075; 87205 ==

== ENCOUNTER → 2025-04-01 | Outpatient (CLI) | payer MEDICARE, MEDICAID, SELFPAY ==
--- NOTE | 2025-04-01 14:37 | ECHOCS_ITS ---
Reason For Study Reason For Study: CURIEL Procedure This was a 2D Doppler, Color Flow transthoracic echocardiogram. The study was technically difficult. Due to obesity, immobility & heart rate. The patient was scanned supine. Contrast injection was performed. Exam performed in department. Left Ventricle Normal-sized left ventricle. Left ventricular EF by Clemons's biplane: 72%. Diastolic function indeterminate. No regional wall motion abnormalities noted. Right Ventricle Normal right ventricle. Normal systolic function. Unable to estimate RV systolic pressure due to insufficient tricuspid regurgitant envelope. Mitral Valve Normal mitral valve. Mild mitral regurgitation. No mitral stenosis. Tricuspid Valve Normal tricuspid valve. No tricuspid stenosis. No tricuspid regurgitation. Aortic Valve Not well-visualized. No hemodynamically significant aortic stenosis. No aortic regurgitation. Pulmonic Valve Not well-visualized. Great Vessels Normal sized aortic root. Normal ascending aorta. Pericardium/Pleural No pericardial effusion. Epicardial fat. Medication 20 gauge I.V. with prn adaptor inserted into left arm. Diluted definity 3.0ml given slow IV push to enhance endocardial definition. MMode/2D Measurements & Calculations RVDd: 2.8 cm Ao root diam: 2.9 cm LAV(MOD- bp): 61.1 ml LAV(MOD- bp) Indexed: 23.8 ml/m2 LAV(MOD- sp2): 60.2 ml LAV(MOD- sp4): 60.6 ml SV(MOD-sp4): 52.2 ml SV(sp4- el): 52.2 ml LVAd ap4: 26.5 cm2 LVLd ap4: 8.3 cm SI(MOD-sp4): 20.4 ml/m2 EDV(MOD-sp4): 72.0 ml EDV(sp4-el): 71.9 ml LVAs ap4: 12.7 cm2 LVLs ap4: 7.0 cm ESV(MOD-sp4): 19.8 ml ESV(sp4-el): 19.7 ml EF(MOD-sp4): 72.5 % EF(sp4-el): 72.6 % LA A4 area: 22.8 cm2 LA dimension(2D): 3.7 cm RA A4 area: 14.5 cm2 TAPSE: 1.9 cm Time Measurements MV dec time: 0.11 sec Doppler Measurements & Calculations MV E max edwin: 103.7 cm/sec Lat Peak E' Edwin: 9.8 cm/sec Med Peak E' Edwin: 6.3 cm/sec MV A max edwin: 167.0 cm/sec E/E' lat: 10.6 E/E' med: 16.3 MV E/A: 0.62 MV V2 max: 202.9 cm/sec MV P1/2t max edwin: 125.2 cm/sec Ao V2 max: 195.1 cm/sec MV max P.5 mmHg MV P1/2t: 54.6 msec Ao max P.2 mmHg MV V2 mean: 110.7 cm/sec Ao V2 mean: 130.1 cm/sec MV mean P.7 mmHg MV dec slope: 672.0 cm/sec2 Ao mean P.4 mmHg MV V2 VTI: 29.6 cm MVA(P1/2t): 4.0 cm2 Ao V2 VTI: 29.8 cm AV (velocity ratio): 0.78 LV V1 max: 156.4 cm/sec PA V2 max: 124.8 cm/sec TR max edwin: 289.6 cm/sec LV V1 max P.8 mmHg TR max P.6 mmHg LV V1 mean P.3 mmHg LV V1 mean: 122.2 cm/sec LV V1 VTI: 23.2 cm ECHO/Echo Complete W/ Contrast Interpretation Summary Patient is tachycardic on this examination Hyperdynamic left ventricular systolic function with EF: 72% by Clemons's bipla ne Normal left ventricular wall motion Normal right ventricular systolic function No hemodynamically significant valvular disease seen on this study. Ordering Physician: Karly Bose Referring Physician: Karly Bose Performed By: Skylar Marroquin RDCS, RVT
== END | disposition home or self-care (01) ==
LOC: CVS 14:34
PROVIDERS: PCP Family Medicine; Referring Provider Family Medicine; Visit Provider Family Medicine
DX: R06.09 Other forms of dyspnea (principal); R60.9 Edema, unspecified
CPT/HCPCS: 93306; Q9957; A4216; C8929

== ENCOUNTER → 2025-04-08 | Outpatient (CLI) | payer MEDICARE, MEDICAID, SELFPAY ==
--- NOTE | 2024-10-13 14:03 | PAT.ANE_ITS ---
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 When Was Last Pacemaker Check QUESTION #4 FULL TEXT: You/Your Family Experience fever (hyperthermia) with Anesthesia Last Oral Intake Last Oral intake: Last Oral Intake NPO since Meds taken in AM with sips of water? Meds patient instructed to take am of surgery PONV PONV - engagement engineer: PONV - engagement engineer Female Yes 10/13/24 13:28 HX of Motion Sickness No 10/13/24 13:28 HX of N/V After Surgery No 10/13/24 13:28 Non-Smoker Yes 10/13/24 13:28 Duration of Surgery greater No 10/13/24 13:28 than 60 minutes Number of Risk Factors 2 10/13/24 13:28 PONV Score Moderate Risk 10/13/24 13:28 Height & Weight Height & Weight: Anesthesia: Height & Weight Height 5 ft 7 in 03/10/24 10:57 Respiratory Assessment Respiratory Assessment - engagement engineer: Respiratory Tract Infection Hx - engagement engineer Hx Respiratory Tract Infection No 10/13/24 13:28 STOP Sleep Apnea STOP Sleep Apnea - engagement engineer: STOP Sleep Apnea - engagement engineer Hx Hypertension Yes: controlled with med 10/13/24 13:28 Hx Sleep Apnea Yes 10/13/24 13:28 CPAP Yes 10/13/24 13:28 BIPAP No 10/13/24 13:28 Do you snore loudly (louder than talking or can be heard Do you often feel tired/ fatigued/ sleepy during daytime? Has anyone observed you stop breathing during sleep? STOP Results Positive 10/13/24 13:28 QUESTION #5 FULL TEXT : Do you snore loudly (louder than talking or can be heard through closed doors)? 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 Specify any problems Hx of Preganancy in last 3 N/A 10/13/24 13:28 Months Nurse Filling Out Transfusion [facility] 10/13/24 13:28 & Questions: Date: 10/13/24 10/13/24 13:28 Time: 13:30 10/13/24 13:28 Patient unable to answer at this time (ie. confused, unrespo /Reproduction History /Reproductive History - engagement engineer: /Reproductive Hx- engagement engineer Hx Now No 10/13/24 13:28 Gestational Age (in weeks): EDC: Hx Hx Para Hx Section SAB No 10/13/24 13:28 PFSH Medical History (Updated 10/13/24 @ 13:33 by Elaine Toussaint) Kidney stone Spinal cord stimulator status Multiple drug resistant organism (MDRO) culture positive History of pulmonary embolism Chronic acquired lymphedema History of Clostridium difficile infection History of DVT (deep vein thrombosis) Easy bruising History of GI bleed History of IBS Gastric reflux Non-smoker CPAP (continuous positive airway pressure) dependence Leg cramps Post-menopausal Wears glasses Depression Walker as 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 Low iron Restless legs Back pain Shortness of breath on exertion History of edema Diverticulitis Ileostomy in place Irritable bowel syndrome (IBS) Morbid obesity Pain of left lower extremity Venous insufficiency of both lower extremities Current use of electronic technologist anticoagulation Home Medications ?Medication ?Instructions ?Recorded ?Last Taken ?Type calcium 600 mg (as 1 tab PO BID SUPPLEMENT 11/2207/23/23 History carbonate)-vitamin D3 12.5 mcg (500 unit) capsule ferrous sulfate 325 mg (65 mg 325 mg PO DAILY anemia 0 12/13/17 05/11/22 History iron) tablet zinc sulfate 50 mg zinc (220 mg) 220 mg PO QHS SUPPLEM ENT 12/13/17 05/11/22 History capsule acetaminophen 500 mg tablet 1,000 mg PO Q6H PRN Pain 0 12/21/17 04/09/23 History ascorbic acid (vitamin C) 1,000 mg 3 g PO DAILY SUPPLE MENT 12/21/17 05/11/22 History tablet (Vitamin C) ergocalciferol (vitamin D2) 1,250 50,000 unit PO MO marquez pplement 12/21/17 05/08/22 History mcg (50,000 unit) capsule (Vitamin D2) magnesium oxide 400 mg PO QHS SUPPLEMENT 05/11/22 History aspirin 81 mg chewable tablet 2 tab PO DAILY HEART HEA LTH 04/22/20 03/02/24 History duloxetine 60 mg capsule,delayed 60 mg PO QHS DEPRESSI ON 07/08/21 05/11/22 History release sprinkle diphenoxylate-atropine 2.5 2 tab PO 4X/DAY IBS 2 01/07/24 History mg-0.025 mg tablet (Lomotil) diclofenac sodium 1 % topical gel 2 - 4 g topical UD P RN PAIN 12/05/21 05/11/22 History tramadol 50 mg tablet 50 - 100 mg PO Q6H PRN Pain 03/06/22 03/10/24 History omeprazole 20 mg capsule,delayed 40 mg PO 0500 ACID RE FLUX 05/12/22 03/10/24 06:00 History release warfarin 2 mg tablet 4 mg PO QHS BLOOD THINNER 03/02/24 History duloxetine 20 mg capsule,delayed 20 mg PO DAILY Unknown History release carvedilol 3.125 mg tablet 3.125 mg PO .1200, 0000 03/16 Unknown History oxycodone 5 mg tablet 5 mg PO QHS 01/02/24 Unknown History 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 coagulans)) ciprofloxacin HCl 500 mg tablet 500 mg PO BID 10/13/24 Unknown History melatonin 10 mg capsule 10 mg PO QHS 10/13/24 Unknow n History Allergy/AdvReac Type Severity Reaction Status Date / Time latex Allergy Rash Verified 10/13/24 13:24 amoxicillin AdvReac Nausea/Vom/ Verified 10/13/24 13:24 Diarrhea naproxen AdvReac Nausea/Vom/ Verified 10/13/24 13:24 Diarrhea sulfamethoxazole (From AdvReac Nausea/Vom/ Verified 10/13/24 13:24 Bactrim) Diarrhea trimethoprim (From Bactrim) AdvReac Nausea/Vom/ Verified 10/13/24 13:24 Diarrhea Surgical History History of cystoscopy Hx of surgical procedure History of esophagogastroduodenoscopy (EGD) History of selective injection of anesthetic agent around lumbar nerve root History of colonoscopy Hx of foot surgery History of rectal surgery H/O colectomy Social History Smoking Status: Never smoker alcohol intake: never substance use type: does not use Audit: Pertinent Findings Pertinent Findings EKG Perinent findings: Vent. Rate : 078 BPM Atrial Rate : 078 BPM P-R Int : 144 ms QRS Dur : 074 ms QT Int : 386 ms P-R-T Axes : 063 080 083 degrees QTc Int : 440 ms Sinus rhythm with sinus arrhythmia with occasional Premature ventricular complexes Septal infarct , age undetermined Recommendation Anesthesia Recommendation Anesthesia recommendation: F/U recommended Follow up Details Cardiac/Pulmonary Imaging Recommendation: Yes Consult Recommendation: Yes Consult Rec Details: Cardiology consult for risk stratification/optimization
--- NOTE | 2024-10-15 10:13 | PAT.ANE_ITS ---
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 When Was Last Pacemaker Check QUESTION #4 FULL TEXT: You/Your Family Experience fever (hyperthermia) with Anesthesia Last Oral Intake Last Oral intake: Last Oral Intake NPO since Meds taken in AM with sips of water? Meds patient instructed to take am of surgery PONV PONV - marketing communications manager: PONV - marketing communications manager Female Yes 10/13/24 13:28 HX of Motion Sickness No 10/13/24 13:28 HX of N/V After Surgery No 10/13/24 13:28 Non-Smoker Yes 10/13/24 13:28 Duration of Surgery greater No 10/13/24 13:28 than 60 minutes Number of Risk Factors 2 10/13/24 13:28 PONV Score Moderate Risk 10/13/24 13:28 Height & Weight Height & Weight: Anesthesia: Height & Weight Height 5 ft 7 in 03/10/24 10:57 Respiratory Assessment Respiratory Assessment - marketing communications manager: Respiratory Tract Infection Hx - marketing communications manager Hx Respiratory Tract Infection No 10/13/24 13:28 STOP Sleep Apnea STOP Sleep Apnea - marketing communications manager: STOP Sleep Apnea - marketing communications manager Hx Hypertension Yes: controlled with med 10/13/24 13:28 Hx Sleep Apnea Yes 10/13/24 13:28 CPAP Yes 10/13/24 13:28 BIPAP No 10/13/24 13:28 Do you snore loudly (louder than talking or can be heard Do you often feel tired/ fatigued/ sleepy during daytime? Has anyone observed you stop breathing during sleep? STOP Results Positive 10/13/24 13:28 QUESTION #5 FULL TEXT : Do you snore loudly (louder than talking or can be heard through closed doors)? 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 Specify any problems Hx of Preganancy in last 3 N/A 10/13/24 13:28 Months Nurse Filling Out Transfusion [facility] 10/13/24 13:28 & Questions: Date: 10/13/24 10/13/24 13:28 Time: 13:30 10/13/24 13:28 Patient unable to answer at this time (ie. confused, unrespo /Reproduction History /Reproductive History - marketing communications manager: /Reproductive Hx- marketing communications manager Hx Now No 10/13/24 13:28 Gestational Age (in weeks): EDC: Hx Hx Para Hx Section SAB No 10/13/24 13:28 PFSH Medical History (Updated 10/13/24 @ 13:33 by Elaine Toussaint) Kidney stone Spinal cord stimulator status Multiple drug resistant organism (MDRO) culture positive History of pulmonary embolism Chronic acquired lymphedema History of Clostridium difficile infection History of DVT (deep vein thrombosis) Easy bruising History of GI bleed History of IBS Gastric reflux Non-smoker CPAP (continuous positive airway pressure) dependence Leg cramps Post-menopausal Wears glasses Depression Walker as 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 Low iron Restless legs Back pain Shortness of breath on exertion History of edema Diverticulitis Ileostomy in place Irritable bowel syndrome (IBS) Morbid obesity Pain of left lower extremity Venous insufficiency of both lower extremities Current use of salvage determiner anticoagulation Home Medications ?Medication ?Instructions ?Recorded ?Last Taken ?Type calcium 600 mg (as 1 tab PO BID SUPPLEMENT 11/2207/23/23 History carbonate)-vitamin D3 12.5 mcg (500 unit) capsule ferrous sulfate 325 mg (65 mg 325 mg PO DAILY anemia 0 12/13/17 05/11/22 History iron) tablet zinc sulfate 50 mg zinc (220 mg) 220 mg PO QHS SUPPLEM ENT 12/13/17 05/11/22 History capsule acetaminophen 500 mg tablet 1,000 mg PO Q6H PRN Pain 0 12/21/17 04/09/23 History ascorbic acid (vitamin C) 1,000 mg 3 g PO DAILY SUPPLE MENT 12/21/17 05/11/22 History tablet (Vitamin C) ergocalciferol (vitamin D2) 1,250 50,000 unit PO MO marquez pplement 12/21/17 05/08/22 History mcg (50,000 unit) capsule (Vitamin D2) magnesium oxide 400 mg PO QHS SUPPLEMENT 05/11/22 History aspirin 81 mg chewable tablet 2 tab PO DAILY HEART HEA LTH 04/22/20 03/02/24 History duloxetine 60 mg capsule,delayed 60 mg PO QHS DEPRESSI ON 07/08/21 05/11/22 History release sprinkle diphenoxylate-atropine 2.5 2 tab PO 4X/DAY IBS 2 01/07/24 History mg-0.025 mg tablet (Lomotil) diclofenac sodium 1 % topical gel 2 - 4 g topical UD P RN PAIN 12/05/21 05/11/22 History tramadol 50 mg tablet 50 - 100 mg PO Q6H PRN Pain 03/06/22 03/10/24 History omeprazole 20 mg capsule,delayed 40 mg PO 0500 ACID RE FLUX 05/12/22 03/10/24 06:00 History release warfarin 2 mg tablet 4 mg PO QHS BLOOD THINNER 03/02/24 History duloxetine 20 mg capsule,delayed 20 mg PO DAILY Unknown History release carvedilol 3.125 mg tablet 3.125 mg PO .1200, 0000 03/16 Unknown History oxycodone 5 mg tablet 5 mg PO QHS 01/02/24 Unknown History 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 coagulans)) ciprofloxacin HCl 500 mg tablet 500 mg PO BID 10/13/24 Unknown History melatonin 10 mg capsule 10 mg PO QHS 10/13/24 Unknow n History Allergy/AdvReac Type Severity Reaction Status Date / Time latex Allergy Rash Verified 10/13/24 13:24 amoxicillin AdvReac Nausea/Vom/ Verified 10/13/24 13:24 Diarrhea naproxen AdvReac Nausea/Vom/ Verified 10/13/24 13:24 Diarrhea sulfamethoxazole (From AdvReac Nausea/Vom/ Verified 10/13/24 13:24 Bactrim) Diarrhea trimethoprim (From Bactrim) AdvReac Nausea/Vom/ Verified 10/13/24 13:24 Diarrhea Surgical History History of cystoscopy Hx of surgical procedure History of esophagogastroduodenoscopy (EGD) History of selective injection of anesthetic agent around lumbar nerve root History of colonoscopy Hx of foot surgery History of rectal surgery H/O colectomy Social History Smoking Status: Never smoker alcohol intake: never substance use type: does not use Audit: Pertinent Findings HISTORY of Pertinent Findings History of Pertinent Findings: EKG Pertinent Findings EKG Perinent findings Vent. Rate : 078 BPM 10/13/24 14:06 Atrial Rate : 078 BPM P-R Int : 144 ms QRS Dur : 074 ms QT Int : 386 ms P-R-T Axes : 063 080 083 degrees QTc Int : 440 ms Sinus rhythm with sinus arrhythmia with occasional Premature ventricular complexes Septal infarct , age undetermined Recommendation Anesthesia Recommendation Anesthesia recommendation: F/U recommended (Patient should have cardiology consult as per Dr. Dowd. 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
[2024-10-15 10:29] LABS: INR Fingerstick 1.1
== END | disposition home or self-care (01) ==
LOC: AC 10-15 10:26 → PAT 13:10
PROVIDERS: PCP Family Medicine; Referring Provider Family Medicine; Visit Provider Internal Medicine Gastroenterology
DX: Z01.818 Encounter for other preprocedural examination (principal); Z79.01 Long term (current) use of anticoagulants
CPT/HCPCS: 36416; 85610